=== PATIENT | male | born 1995 | race Caucasian/White ===

== ENCOUNTER 2021-12-26 08:35 | Emergency (ER) | payer MEDICARE, MEDICAID, SELFPAY ==
--- NOTE | 2021-12-26 08:40 | ED.EAR ---
HPI - Ear Problem General Chief complaint: Ear Stated complaint: Ear Pain,Cough Time Seen by Provider: 12/26/21 09:05 Source: patient and RN notes reviewed Mode of arrival: ambulatory Limitations: no limitations History of Present Illness HPI Narrative: 26-year-old male presents with concern for chronic cough, right ear pain. He reports drainage from the right ear for the last several days. He reports he has been coughing since June, he denies history of asthma. He reports he has tried [id number] cough medicine with occasional nighttime relief. He denies nasal congestion, sore throat. Reports occasional rhinorrhea and postnasal drainage. Denies shortness of breath. He denies history of seasonal allergies. MD Complaint: ear pain Related Data Home Medications Medication Instructions Recorded Confirmed bupropion HCl 200 mg tablet,12 hr 200 mg PO DAILY 12/26/21 12/26/21 sustained-release citalopram 40 mg tablet 40 mg PO DAILY 12/26/21 12/26/21 folic acid 1 mg tablet 1 mg PO DAILY 12/26/21 12/26/21 naproxen 500 mg tablet 500 mg PO DIRECTED 12/26/21 12/26/21 olanzapine 10 mg tablet 10 mg PO DAILY 12/26/21 12/26/21 olanzapine 2.5 mg tablet 2.5 mg PO DAILY 12/26/21 12/26/21 secukinumab 150 mg/mL subcutaneous 150 mg subcut DIRECTED 12/26/21 12/26/21 syringe (Cosentyx 300 mg/2 Syringes () Allergies Allergy/AdvReac Type Severity Reaction Status Date / Time No Known Allergies Allergy Unknown Verified 12/26/21 08:40 Review of Systems Review of Systems: CONSTITUTIONAL: Denies malaise, chills, sweats, or fever. EYES: Denies visual changes, redness, or discharge. ENT: Denies rhinorrhea, congestion, sinus pain, and sore throat. Reports right ear pain and drainage, reports postnasal drainage CARDIOVASCULAR: Denies chest pain, palpitations, or edema. RESPIRATORY: Reports cough. Denies dyspnea. GASTROINTESTINAL: Denies abdominal pain, nausea, vomiting, diarrhea SKIN: Denies rash or itching. MUSCULOSKELETAL: Denies myalgia. NEUROLOGIC: Denies headache. All systems reviewed & are unremarkable except as noted in HPI and below PMFSH Social History Social History Social History: never smoker Smoking status: Never smoker Alcohol intake: former Comments At time of signature, agree with nursing past medical, surgical, social and family history. There is no relevant family history pertinent to the presenting complaint Exam Narrative: GENERAL: Well-appearing, well-nourished, and in no acute distress. HEAD: Normocephalic EYES: PERRLA, conjunctivae clear ENT: Nares clear, clear discharge. Mucous membranes moist. Left TM pearly guzman with sharp light reflex; right tragal tenderness with EAC erythema, edema and purulent drainage Oropharynx not erythematous without lesions. Tonsils not enlarged and without exudate, no drooling, no hoarseness, no trismus, uvula midline. NECK: Supple. No lymphadenopathy CHEST: Clear to auscultation, breath sounds equal. No wheezing, rhonchi, rales, or stridor. No respiratory distress, speaks in full sentences. HEART: Regular rate and rhythm. No murmur heard. SKIN: Warm, dry, no rash. NEURO: Alert and oriented x3. PSYCH: Normal mood and affect Course Course Emergency Course: Patient is aware of diagnosis, understands and agrees to treatment plan. Anticipatory guidance given. Patient agrees to follow-up as directed and is aware of reasons to seek care at the emergency department. Portions of this record may have been created with voice recognition software Level of Care: Express Care Visit Vital Signs Vital signs: Reviewed. Medical Decision Making MDM Narrative Medical decision making narrative: Differential diagnosis considered: Trejo virus, strep pharyngitis, allergic rhinitis, upper respiratory tract infection, sinusitis, rhinosinusitis, nasopharyngitis. viral pharyngitis, otitis media, otitis externa, otitis effusion, cer
[2021-12-26 08:45] VITALS: BP 128/80; PULSE 87; RESP 16; TEMP 36.9; O2SAT 100
== END 2021-12-26 09:22 | disposition home or self-care (01) ==
PROVIDERS: Emergency Provider Nurse Practitioner
DX: H60.90 Unspecified otitis externa, unspecified ear (principal); R05.9 Cough, unspecified
CPT/HCPCS: 99213; G0463

== ENCOUNTER 2023-10-11 11:02 | Outpatient (CLI) | payer MEDICARE, MEDICAID, SELFPAY ==
--- NOTE | ~2023-10-11 | CT_ITS ---
Non-contrast Head CT History: Migraine Technique: Axial non-contrast imaging of the brain was performed. Dose reduction technique was used on this scan by utilizing automated exposure control and iterative reconstruction technique. The dose -length product (DLP) was 599.57 mGy-cm. Findings: There is no evidence of intracranial hemorrhage, mass lesion, or acute infarct. Brain par enchyma appears normal. The ventricles and subarachnoid spaces are normal in size. The calvarium ap pears normal. The visualized paranasal sinuses and mastoid air cells are clear. Impression: No significant abnormality seen. Reviewed, dictated and finalized at location . Impression: No significant abnormality seen.
== END 2023-10-11 11:03 ==
PROVIDERS: Visit Provider Student in an Organized Health Care Education/Training Program
DX: G43.909 Migraine, unspecified, not intractable, without status migrainosus (principal)
CPT/HCPCS: 70450

== ENCOUNTER 2024-07-08 07:57 | Outpatient (CLI) | payer MEDICARE, MEDICAID, SELFPAY ==
--- NOTE | 2024-07-14 13:49 | WPDHOMESLEEP ---
Sleep Study - Home Unattended Date of Study: 07/08/24 Ordering Provider: Riley Hutson APRN Interpreting Provider: Safia Degroot, DO Home Sleep Study Type: Watch PAT Height: 1.7 m Weight: 121.109 kg Body Mass Index: 41.8 Neck Circumference (inches): 18 [place]: 11 Reason for Sleep Study Daytime hypersomnia Sleep History The patient is a 28-year-old male that had a sleep study ordered by the pulmonary group for evaluation of sleep apnea. The patient frequently awakens from sleep short of breath. He denies awakening at night with heartburn, belching or cough. He frequently snores and it is frequently loud enough that others complain. He constantly has trouble sleeping when he has a cold. He frequently wakes up gasping for air throughout the night. He frequently has breathing problems at night observed by himself or others. He occasionally sweats excessively at night. He occasionally has heart palpitations or irregular heartbeats during the night. He constantly falls asleep during the day but never while driving. He denies having trouble at school or work due to sleepiness. He occasionally feels unable to move while waking up or falling asleep. He occasionally experiences vivid dreamlike scenes upon awakening or falling asleep. He denies feeling afraid of going to sleep. He frequently has nightmares. He denies remembering his dreams. He frequently has thoughts racing through his mind. He occasionally feels sad, depressed and anxious. He frequently has muscular tension. He frequently notices parts of his body jerk. He occasionally kicks during the night. He frequently has crawling and aching feelings in his legs and frequently has leg pain during the night. He denies awakening in the morning with jaw pain. He is constantly bothered by pain during the day and frequently awakened by pain during the night. He constantly wakes up feeling stiff in the morning. He constantly wakes up with sore or achy muscles. He constantly wakes up with pain in the neck, spine and other joints. He goes to bed between 2:24 a.m. on both weekdays and weekends. It takes him up to 10 minutes to fall asleep. He wakes up 1-2 times throughout the night for unknown reasons but will watch television is well he is able to fall back asleep which can take 2-4 hours. He wakes up at 8:20 a.m. on both weekdays and weekends. He typically gets 5-6 hours of sleep per night. He will stay in bed for a few minutes after waking up in the morning. He currently lives with his parents. He will consume caffeinated beverages within 2 hours of bedtime. He will engage in physical exercise before bedtime. He denies reading before falling asleep. He will watch television before falling asleep. He will take naps in afternoon or the evening but they are not refreshing. He consumes 2-3 cups of caffeinated beverage per day. He denies tobacco, alcohol and recreational drug use. [facility] Past Medical History Medical History Daytime sleepiness Obesity Social History Social History Social History: caffeine 2 cups of tea daily Smoking status: Never smoker Alcohol intake: former Alcohol use details: has not drank in over 2 years Substance use: never Substance use type: does not use Lack of Transportation: No Lack of Food: Never True Current Housing: I Have Housing Concerned About Future Housing: No Difficulty Paying Gas/Electric Bills: No Difficulty Paying for Meds: No Currently Unemployed: YES Education: High School Diploma/GED Difficulty w/ Childcare or Family Care: No Living arrangements: with family Medications Home Medications ?Medication ?Instructions ?Recorded ?Confirmed ?Type bupropion HCl 200 mg tablet,12 hr 200 mg PO DAILY 12/26/21 03/30/24 History sustained-release citalopram 40 mg tablet 40 mg PO DAILY 12/26/21 03/30/24 History folic acid 1 mg tablet 1 mg PO DAILY 12/26/21 03/30/24 History naproxen 500 mg tablet 500 mg PO DIRECTED 12/26/21 03/30/24 History olanzapine 10 mg tablet 10 mg PO DAILY 12/26/21 03/30/24 History secukinumab 150 mg/mL subcutaneous 150 mg subcut DIRECTED 12/26/21 03/30/24 History syringe (Cosentyx 300 mg/2 Syringes () sumatriptan succinate 100 mg tablet See Rx Instructions PO .COMPLEX 02/17/24 03/30/24 Rx #14 tabs topiramate 100 mg tablet 100 mg PO DAILY #60 tabs 02/17/24 03/30/24 Rx venlafaxine 37.5 mg 37.5 mg PO DAILY 03/30/24 03/30/24 History capsule,extended release 24 hr Sleep Procedure The sleep study was completed using [employer] a technically adequate device with seven channels: peripheral arterial tone, actigraphy, body position, snore, respiratory movement, pulse oximetry, sleep staging, and heart rate. Prior to using the device, the patient received verbal and written instructions for its application and was provided with the help desk phone number for additional telephonic instruction with 24-hour availability of qualified personnel to answer questions. The study was scored using CMS guidelines. Sleep Architecture The total recording time is 10 hrs, 30 min. The total sleep time is 3 hrs, 44 min. Sleep latency is 22 minutes. REM latency is minutes. The patient had 52 episodes of waking. Sleep architecture shows 10.2% deep sleep, 89.8% light sleep, and (as % Total Sleep Time) showed NREM (Light 89.8%; Deep 10.2%), and a 0.0% stage REM. The patient spent 50.3% of total sleep time in the supine position. Sleep efficiency was 35.56. Respiratory Analysis The overall AHI (pAHI 4%:) is 51.6. The central AHI is 20.3. The AHI was N/A in NREM and N/A in REM sleep. The AHI was 63.4 in Supine and 39.2 in Non-supine sleep. Percent of Phi Sanchez respirations is 0.0. Oximetry Data The oxygen desaturation index (EVAN 4%:) is 47.9. The mean saturation is 96%, and the lowest saturation is 85%. Time spent with saturation < 88% is 0.4 minutes. Snoring Profile Snoring average intensity is 43 dB. The patient snored above 45 decibels for 40.1 minutes, 17.9% of sleep time. Cardiac Profile The average pulse rate is 78 beats per minutes. The lowest pulse rate is 54 bpm. The highest pulse rate reported is 131 bpm. The longest Afibevent duration is 0:00:43. A suspected arrhythmia flagged in the sleep report does not necessarily imply an arrhythmia condition is present, but rather suggests that further investigation should be considered. A-Fib events < 60 seconds may be artifact. Premature beats occur <0.1 per minute. Assessment and Plan Assessment and Plan (1) KIEL (obstructive sleep apnea): Code(s): G47.33 - Obstructive sleep apnea (adult) (pediatric) Status: Acute Assessment and Plan: The patient had an overall AHI of 51.6 with desaturation down to 85%. The central apnea index was 20.3. This is consistent with severe sleep apnea. Due to the severity of the patient's sleep apnea as well as the elevated central apnea index, the patient is not a candidate for AutoPAP. AutoPAP can increase the severity and frequency of central apneas. I recommend that the patient have a CPAP Titration with the use of a hypnotic to ensure we obtain enough sleep data and find an optimal pressure setting. *The patient needs to have an echocardiogram to rule out cardiogenic causes for an elevated central apnea index.* The patient's sleep history is highly suggestive of Restless Leg Syndrome. I recommend that the patient have a serum ferritin drawn for evaluation of iron deficiency anemia. If the patient has a serum ferritin less than 75 ng/mL, I recommend starting a daily iron supplement and a Vitamin C supplement for better absorption. If the serum ferritin is greater than 75 ng/mL, I recommend starting a dopamine agonist and titrating the dose until symptoms resolve. There are nonpharmacological methods to treat limb movements including daily exercise, stretching calf muscles before bed, avoiding excessive amounts of caffeine and alcohol, vitamin B supplementation, magnesium lotion massaged into legs before bed, and use of a weighted blanket. Data The data obtained during this sleep study is adequate for interpretation. Certification This sleep study has been reviewed by a board certified sleep medicine physician.
[2024-07-14 17:03] VITALS: BMI 41.8
--- OUTSIDE RECORDS SUMMARY | 2024-07-15 18:37 | XMS_ITS | Encounter Summary ---
Author Organization [facility] Address [address] [place] [address] Care Team Providers Care Home Insurance Agent Name Role Phone Christa Velez HARVEY-ASSOCIATE PROGRAMMER Unavailable [phone] Oswaldo BOSCH MD, Francis G Primary Care Provider [phone] Morgan Randhawa MD Unavailable Pineda Randhawa MD Unavailable Will Naqvi MD Unavailable [phone] Pineda Randhawa MD Unavailable Estee Peck MD Unavailable [phone] Encounter Details Date Type Department Care Team (Latest Contact Info) Description 07/24/2023 1:55 PM MECHANICAL TECHNICIAN - 07/24/2023 11:59 PM [facility] Hospital Encounter [facility] OP DRAW STATION [address] [place] [phone] Discharge Disposition: Home or Self Care Social History Tobacco Use Types Packs/Day Years Used Date Smoking Tobacco: Never Smokeless Tobacco: Never Alcohol Use Standard Drinks/Week Comments No 0 (1 standard drink = 0.6 oz pur e alcohol) PHQ-2 Answer Date Recorded PHQ2 TOTAL SCORE 0 12/26/2022 Sex and Gender Information Value Date Recorded Sex Assigned at Not on file Gender Identity Not on file Sexual Orientation Not on file documented as of this encounter Medications at Time of Discharge Medication Sig Dispensed Refills Start Date End Date buPROPion SR 12hr (WELLBUTRIN SR) 200 MG tablet Take 1 (one) tablet by mouth 2 times daily 03/06/2021 calcipotriene (DOVONEX) 0.005 % creamIndications:Oth er psoriasis Apply to affected area 2 times daily 60 g 3 10/16/2021 citalopram (CELEXA) 40 MG tablet TAKE 1 TABLET BY MOUTH EVERY DAY IN THE MORNING 03/08/2021 clobetasol (TEMOVATE) 0.05 % ointmentIndications: Other psoriasis APPLY TOPICALLY TO AFFECTED AREA(S) OF KNEES AND ELBOWS TWICE DAILY 60 g 3 10/16/2021 folic acid (FOLVITE) 1 MG tabletIndications:Ot her psoriasis Take 1 daily except the day you take methotrexate 30 tablet 11 07/07/2021 ketoconazole (NIZORAL) 2 % shampooIndications:O ther psoriasis Apply to wet hair, leave on for 3 minutes, then rinse; three times weekly. 30 days supply 120 mL 11 04/17/2021 melatonin 3 MG tablet TAKE 1 TABLET BY MOUTH AT BEDTIME 90 tablet 11 04/23/2023 olanzapine (ZYPREXA) 10 MG tablet Take 1 (one) tablet by mouth once daily vitamin D3 (Cholecalciferol) 25 MCG (1000 UNITS) tablet Take 1 (one) tablet by mouth once daily 05/06/2022 amitriptyline (Elavil) 25 MG tablet Take 1 (one) tablet by mouth at bedtime 12/18/2023 Cosentyx Sensoready, 300 MG, 150 MG/ML SOAJ pen INJECT 300MG UNDER THE SKIN EVERY 28 DAYS 2 mL 3 05/10/2023 08/27/2023 naproxen (Naprosyn) 500 MG tablet Take 1 (one) tablet by mouth 2 times daily 120 tablet 1 11/02/2022 08/29/2023 documented as of this encounter Plan of Treatment Upcoming Encounters Date Type Department Care Team (Late st Contact Info) Description 10/21/2024 1:30 PM CDT Office Visit [facility] - Rheumatology [address] [place] [address], [place] [phone] Paulino Youngblood MD [address] [place] [address] [place] [phone] 11/30/2024 3:00 PM CDT [facility] E[facility] [address] [place] [address], [place] [phone] Froilan Monae MD [address] [place] [address] DEPT [place] [address] 02/15/2025 10:00 AM CDT Office Visit [facility] - Internal Med [address] [place] [phone] Richard Chacon III, MD [address] [place] [address] [address]L [facility] [place] [phone] documented as of this encounter Procedures Procedure Name Priority Date/Time Associated Diagnosis Comments QUANTIFERON-TB GOLD PLUS 4-TUBE Routine 07/24/2023 2:25 PM MECHANICAL TECHNICIAN Psoriatic arthritis (HCC) Psoriasis Screening-pulmonary TB HIV-1 HIV-2 ANTIBODY + HIV P24 AG PANEL Routine 07/24/2023 2:25 PM MECHANICAL TECHNICIAN Routine general medical examination at [facility] care facility HEMOGLOBIN A1C Routine 07/24/2023 2:25 PM MECHANICAL TECHNICIAN Class 2 obesity with body mass index (BMI) of 37.0 to 37.9 in adult, unspecified obesity type, unspecified whether serious comorbidity present CBC W AUTO DIFFERENTIAL Routine 07/24/2023 2:25 PM MECHANICAL TECHNICIAN Psoriatic arthritis (HCC) Psoriasis COMPREHENSIVE METABOLIC PANEL Routine 07/24/2023 2:25 PM MECHANICAL TECHNICIAN Psoriatic arthritis (HCC) Psoriasis LIPID PROFILE Routine 07/24/2023 2:25 PM MECHANICAL TECHNICIAN Class 2 obesity with body mass index (BMI) of 37.0 to 37.9 in adult, unspecified obesity type, unspecified whether serious comorbidity present documented in this encounter Results * QUANTIFERON-TB GOLD PLUS 4-TUBE (07/24/2023 2:25 PM MECHANICAL TECHNICIAN) [facility] QuantiFERON NIL 0.02 IU/mL 1:37 PM MECHANICAL TECHNICIAN [facility] ([facility]) Comment: Performed By: [facility] [address] [place] [id number] Management Services Technician: Woo Bee MD, PhD CLIA Number: [id number] QuantiFERON TB Gold Plus Negative Negative 07/27/2023 1:37 PM MECHANICAL TECHNICIAN [facility] ([facility]) Comment: Interpretive Data: Quantiferon TB Gold Plus Interferon gamma release is measured for specimens from each of the four collection tubes. A qualitative result (Negative, Positive, or Indeterminate) is based on interpretation of the four values, NIL, MITOGEN minus NIL (MITOGEN-NIL), TB1 minus NIL (TB1-NIL), and TB2 minus NIL (TB2-NIL). The NIL value represents nonspecific reactivity produced by the patient specimen. The MITOGEN-NIL value serves as the positive control for the patient specimen, demonstrating successful lymphocyte activity. The TB1-NIL tube specifically detects CD4+ lymphocyte reactivity, specifically stimulated by the TB1 antigens. The TB2-NIL tube detects both CD4+ and CD8+ lymphocyte reactivity, stimulated by TB2 antigens. An overall Negative result does not completely rule out TB infection. A false-positive result in the absence of other clinical evidence of TB infection is not uncommon. Refer to: Updated Guidelines for Using Interferon Gamma Release Assays to Detect Mycobacterium tuberculosis Infection --- [place], 2010 (http://www.cdc.gov/mmwr/preview/mmwrhtml/nd2541m3.htm), for more information concerning test performance in low-prevalence populations and use in occupational screening. QuantiFERON Plus TB1 Minus NIL 0.02 0.00 - 0.34 IU/mL 07/27/2023 1:37 PM MECHANICAL TECHNICIAN [facility] ([facility]) QuantiFERON Plus TB2 Minus NIL 0.00 0.00 - 0.34 IU/mL 07/27/2023 1:37 PM MECHANICAL TECHNICIAN [facility]) QuantiFERON Mitogen Minus NIL 8.47 IU/mL 07/27/2023 1:37 PM MECHANICAL TECHNICIAN [facility]) Blood BLOOD SPECIMEN / Unknown Lab Venipuncture / Unknown 07/24/2023 2:25 PM MECHANICAL TECHNICIAN 07/24/2023 3:23 PM MECHANICAL TECHNICIAN Will Naqvi MD LAB - CHEMISTRY ALEENA HERNANDEZ [facility] ([facility]) [address] [place] [address], [facility] * COMPREHENSIVE METABOLIC PANEL (07/24/2023 2:25 PM MECHANICAL TECHNICIAN) BUN 9 7 - 26 mg/dL 07/24/2023 3:[address] [facility] Creatinine 1.01 0.71 - 1.16 mg/dL 07/24/2023 3:[address] [facility] Sodium 138 136 - 145 mmol/L 07/24/2023 3:[address] [facility] Potassium 4.1 3.5 - 4.5 mmol/L 07/24/2023 3:[address] [facility] Chloride 107 98 - 107 mmol/L 07/24/2023 3:[address] [facility] CO2 23 22 - 29 mmol/L 07/24/2023 3:[address] [facility] Glucose 96 70 - 115 mg/dL 07/24/2023 3:[address] [facility] Calcium 9.3 8.4 - 10.2 mg/dL 07/24/2023 3:[address] [facility] Protein Total 7.1 6.0 - 8.3 g/dL 07/24/2023 3:[address] [facility] Albumin 3.9 3.4 - 5.0 g/dL 07/24/2023 3:[address] [facility] Bilirubin Total 0.3 0.2 - 1.2 mg/dL 07/24/2023 3:[address] [facility] Alkaline Phosphatase 109 40 - 150 U/L 07/24/2023 3:[address] [facility] ALT 49 5 - 55 U/L 07/24/2023 3:[address] [facility] AST 17 5 - 34 U/L 07/24/2023 3:[address] [facility] Anion Gap 8 6 - 16 07/24/2023 3:[address] [facility] BUN/Creatinine Ratio 9 7 - 23 07/24/2023 3:[address] [facility] Osmolality Calculated 285 275 - 295 mOsm/kg 07/24/2023 3:[address] [facility] Albumin/Globulin Ratio 1.2 1.1 - 2.3 07/24/2023 3:[address] [facility] eGFR by CKD-EPI >90 >=90 mL/min/1.7 3 m2 07/24/2023 3:[address] [facility] Blood BLOOD SPECIMEN / Unknown Lab Venipuncture / Unknown 07/24/2023 2:25 PM MECHANICAL TECHNICIAN 07/24/2023 2:57 PM MECHANICAL TECHNICIAN Will Naqvi MD LAB - CHEMISTRY [facility]DE [facility] Organization Address City/State/ZIP Co de Phone Number [facility] [address] [place] [address], [facility] [phone] * CBC WITH DIFFERENTIAL (07/24/2023 2:25 PM MECHANICAL TECHNICIAN) WBC 7.1 4.0 - 10.7 x10E9/L 07/24/2023 3:[address] [facility] RBC Count 5.15 4.30 - 5.80 x10E12/L 07/24/2023 3:[address] [facility] Hemoglobin 14.2 13.3 - 17.5 g/dL 07/24/2023 3:[address] [facility] Hematocrit 42.4 38.7 - 51.1 % 07/24/2023 3:[address] [facility] MCV 82.3 80.0 - 98.0 fL 07/24/2023 3:[address] [facility] MCH 27.6 26.7 - 33.6 pg 07/24/2023 3:[address] [facility] MCHC 33.5 31.7 - 36.3 g/dL 07/24/2023 3:[address] [facility] RDW-CV 13.0 11.3 - 14.8 % 07/24/2023 3:[address] [facility] Platelet Count 232 150 - 420 x10E9/L 07/24/2023 3:[address] [facility] MPV 10.2 7.8 - 11.4 fL 07/24/2023 3:[address] [facility] Neutrophil % 66.0 41.0 - 74.0 % 07/24/2023 3:[address] [facility] Lymphocyte % 25.1 17.0 - 47.0 % 07/24/2023 3:[address] [facility] Monocyte % 5.9 3.0 - 11.0 % 07/24/2023 3:[address] [facility] Eosinophil % 1.7 0.0 - 7.0 % 07/24/2023 3:[address] [facility] Basophil % 0.6 0.0 - 1.6 % 07/24/2023 3:[address] [facility] Immature Granulocytes % 0.7 0.0 - 1.0 % 07/24/2023 3:[address] [facility] Neutrophil Absolute 4.67 1.60 - 7.50 x10E9/L 07/24/2023 3:[address] [facility] Lymphocyte Absolute 1.78 1.00 - 4.40 x10E9/L 07/24/2023 3:[address] [facility] Monocyte Absolute 0.42 0.15 - 1.00 x10E9/L 07/24/2023 3:[address] [facility] Eosinophil Absolute 0.12 0.00 - 0.60 x10E9/L 07/24/2023 3:[address] [facility] Basophil Absolute 0.04 0.00 - 0.13 x10E9/L 07/24/2023 3:[address] [facility] Blood BLOOD SPECIMEN / Unknown Lab Venipuncture / Unknown 07/24/2023 2:25 PM MECHANICAL TECHNICIAN 07/24/2023 2:57 PM [facility] Will Naqvi MD LAB - HEMATOLOGY ORD ERABLES [facility] [address] [place] [address], [facility] [phone] * HIV-1 HIV-2 ANTIBODY + HIV P24 AG PANEL (07/24/2023 2:25 PM MECHANICAL TECHNICIAN) HIV Antigen/Antibod y 1 & 2 Non-reacti ve Non-react artur 07/24/2023 3:[address] [facility] Comment:No Laboratory eviden ce of HIV infection. Blood BLOOD SPECIMEN / Unknown Lab Venipuncture / Unknown 07/24/2023 2:25 PM MECHANICAL TECHNICIAN 07/24/2023 2:56 PM MECHANICAL TECHNICIAN Richard Chacon III, MD LAB - CHEMISTRY O RDERABLES [facility] [address] [place] [phone], [facility] [phone] * (ABNORMAL) LIPID PROFILE (07/24/2023 2:25 PM MECHANICAL TECHNICIAN) Pathologist [facility] Cholesterol Total 151 <200 mg/dL 07/24/2023 3:[address] [facility] HDL 27(L) >40 mg/dL 07/24/2023 3:[address] [facility] Comment: ATP III Classification of HDL Cholesterol: ? <40 mg/dL: ??Considered a major risk factor. ? >60 mg/dL: ??Considered a negative risk factor. ? LDL Calculated 99 <100 mg/dL 07/24/2023 3:[address] [facility] Comment: ATP III Classification of LDL Cholesterol: ?<100 mg/dL: ??Optimal ? 100 - 129 mg/dL: ??Near Optimal/Above Optimal ? 130 - 159 mg/dL: ??Borderline High ? 160 - 189 mg/dL: ??High ?>190 mg/dL: ??Very High ? Triglycerides 124 <150 mg/dL 07/24/2023 3:[address] [facility] Comment: ATP III Classification of Triglycerides: ?<150 mg/dL: ??Normal ? 150 - 199 mg/dL: ??Borderline High ? 200 - 400 mg/dL: ??High ?>500 mg/dL: ??Very High Blood BLOOD SPECIMEN / Unknown Lab Venipuncture / Unknown 07/24/2023 2:25 PM MECHANICAL TECHNICIAN 07/24/2023 2:57 PM MECHANICAL TECHNICIAN Richard Chacon III, MD LAB - CHEMISTRY O JOE Performing Organization Address [facility] Co de Phone Number [facility] [address] [place] [address], [facility] [phone] * (ABNORMAL) HEMOGLOBIN A1C (07/24/2023 2:25 PM MECHANICAL TECHNICIAN) Hemoglobin A1c 5.7(H) <=5.6 % 07/25/2023 11:[address] [facility] Estimated Average Glucose 117 mg/dL 07/25/2023 11:[address] [facility] Comment: HbA1c Interpretation: Normal : < 5.7% Pre-diabetes: 5.7-6.4% Diabetes: Equal to or greater than 6.5% Test results diagnostic of diabetes should be repeated for confirmation. Treatment target values recommended by ADA and other clinical organizations should be used to evaluate metabolic control in patients. Reference: [place] [employer], Standards of Care in Diabetes -2020 In patients 70 years and older consider HbA1c target range of 7.0-7.5% (Reference: Alberto Everett et al. JAMDA. 2012) The Sebia assay for the measurement of HbA1c is a National Glycohemoglobin Standardization Program (NGSP) certified method. Blood BLOOD SPECIMEN / Unknown Lab Venipuncture / Unknown 07/24/2023 2:25 PM MECHANICAL TECHNICIAN 07/24/2023 2:58 PM MECHANICAL TECHNICIAN Richard Chacon III, MD LAB - CHEMISTRY O JOE Performing Organization Address [facility]/ZIP Co de Phone Number [facility] [address] [place] [phone], [facility] [phone] documented in this encounter Visit Diagnoses Diagnosis Class 2 obesity with body mass index (BMI) of 37.0 to 37.9 in adult, unspecified obesity type, unspecified whether serious comorbidity present Routine general medical examination at health care facility Routine general medical examination at a health care facility Psoriatic arthritis (HCC) Psoriatic arthropathy Psoriasis Other psoriasis Screening-pulmonary TB Screening examination for pulmonary tuberculosis documented in this encounter Care Teams Home Insurance Agent Relationship Specialty Start Date End Date Richard Chacon III, MD [address] [place] [phone] PCP - General Internal Medicine 01/29/22 Christa Velez APRN-ASSOCIATE PROGRAMMER [address] [phone] Psychiatrist Nurse Practitioner 08/07/21 Morgan Randhawa MD [address] [place] [phone] Resident - PCP Internal Medicine 01/29/22 Pineda Randhawa MD [address] [place] [phone] Resident Rheumatology 12/24/22 Will Naqvi MD [address] [place] [phone] Datawarehouse Developer Rheumatology 12/24/22 Pineda Randhawa MD [address] [place] [address] Resident Rheumatology 02/04/23 Estee Peck MD [address] [place] [address] Dermatology 02/04/23 documented as of this encounter
--- OUTSIDE RECORDS SUMMARY | 2024-07-15 18:37 | XMS_ITS | Encounter Summary ---
Author Organization [facility] Address [address] [place] [address] Care Team Providers Care Christian Science Reader Name Role Phone AgustinChrista HARVEY-SCRAPER OPERATOR Unavailable Oswaldo BOSCH MD, Richard Sanchez Primary Care Provider [phone] Morgan Randhawa MD Unavailable Pineda Randhawa MD Unavailable Will Naqvi MD Unavailable Pineda Randhawa MD Unavailable Estee Peck MD Unavailable [phone] Encounter Details Date Type Department Care Team (Late st Contact Info) Description 07/24/2023 Orders Only [facility] - Rheumatology [address] [facility], [place] [phone] Pineda Randhawa MD [address] [place] [address] Psoriatic arthritis (HCC) ; Psoriasis; Screening-pulmonary TB Social History Tobacco Use Types Packs/Day Years [...] on file documented as of this encounter Plan of Treatment Upcoming Encounters Date Type Department Care Team (Late st Contact Info) Description 10/21/2024 1:30 PM CDT Office Visit [facility] - Rheumatology [address] [place] [phone] Paulino Youngblood MD [address] [place] [address] [place] [phone] 11/30/2024 3:00 PM CDT Office Visit [facility] - ENT [address] [place] [phone] Froilan Monae MD [address] [place] [address] [place] [address] 02/15/2025 10:00 AM CDT Office Visit [facility] - Internal Med [address] [place] [phone] Richard Chacon III, MD [address] [place] [address] 2L [place] [phone] documented as of this encounter Results * QUANTIFERON-TB GOLD PLUS 4-TUBE (07/24/2023 2:25 PM NURSING OFFICER) QuantiFERON NIL 0.02 IU/mL 1:37 PM NURSING OFFICER [employer] ([facility]) Comment: Performed By: [employer] [address] [place] [address] Clinical Advisor: Woo Bee MD, PhD CLIA Number: [id number] QuantiFERON TB Gold Plus Negative Negative 07/27/2023 1:37 PM NURSING OFFICER [employer] ([facility]) Comment: Interpretive Data: Quantiferon TB Gold [...] Mycobacterium tuberculosis Infection --- [place], 2010 (http://www.cdc.gov/mmwr/preview/mmwrhtml/tk4237e1.htm), for more information concerning test performance in low-prevalence populations and use in occupational screening. QuantiFERON Plus TB1 Minus NIL 0.02 0.00 - 0.34 IU/mL 07/27/2023 1:37 PM NURSING OFFICER [facility]) QuantiFERON Plus TB2 Minus NIL 0.00 0.00 - 0.34 IU/mL 07/27/2023 1:37 PM NURSING OFFICER [facility]) QuantiFERON Mitogen Minus NIL 8.47 IU/mL 07/27/2023 1:37 PM NURSING OFFICER [facility]) Blood BLOOD SPECIMEN / Unknown Lab Venipuncture / Unknown 07/24/2023 2:25 PM NURSING OFFICER 07/24/2023 3:23 PM NURSING OFFICER Will Naqvi MD LAB - CHEMISTRY ALEENA HERNANDEZ [facility] Organization Address City/State/ZIP Co de Phone Number [facility] [employer] [facility]) [address] [phone] * COMPREHENSIVE METABOLIC PANEL (07/24/2023 2:25 PM NURSING OFFICER) BUN 9 7 - 26 mg/dL 07/24/2023 3:25 PM NURSING OFFICER [facility] Creatinine 1.01 0.71 - 1.16 mg/dL 07/24/2023 3:25 PM [facility] Sodium 138 136 - 145 mmol/L 07/24/2023 3:25 PM [facility] Potassium 4.1 3.5 - 4.5 mmol/L 07/24/2023 3:25 PM [facility] Chloride 107 98 - 107 mmol/L 07/24/2023 3:25 PM [facility] CO2 23 22 - 29 mmol/L 07/24/2023 3:25 PM [facility] Glucose 96 70 - 115 mg/dL 07/24/2023 3:25 PM [facility] Calcium 9.3 8.4 - 10.2 mg/dL 07/24/2023 3:25 PM [facility] Protein Total 7.1 6.0 - 8.3 g/dL 07/24/2023 3:25 PM [facility] Albumin 3.9 3.4 - 5.0 g/dL 07/24/2023 3:25 PM [facility] Bilirubin Total 0.3 0.2 - 1.2 mg/dL 07/24/2023 3:25 PM [facility] Alkaline Phosphatase 109 40 - 150 U/L 07/24/2023 3:25 PM [facility] ALT 49 5 - 55 U/L 07/24/2023 3:25 PM [facility] AST 17 5 - 34 U/L 07/24/2023 3:25 PM [facility] Anion Gap 8 6 - 16 07/24/2023 3:25 PM [facility] BUN/Creatinine Ratio 9 7 - 23 07/24/2023 3:25 PM [facility] Osmolality Calculated 285 275 - 295 mOsm/kg 07/24/2023 3:25 PM [facility] Albumin/Globulin Ratio 1.2 1.1 - 2.3 07/24/2023 3:25 PM [facility] eGFR by CKD-EPI >90 >=90 mL/min/1.7 3 m2 07/24/2023 3:25 PM [facility] Blood BLOOD SPECIMEN / Unknown Lab Venipuncture / Unknown 07/24/2023 2:25 PM NURSING OFFICER 07/24/2023 2:57 PM NURSING OFFICER Will Naqvi MD LAB - CHEMISTRY ALEENA HERNANDEZ [facility] Organization Address City/State/ZIP Co de Phone Number [facility] [address] [place] [address], [facility] [phone] * CBC WITH DIFFERENTIAL (07/24/2023 2:25 PM NURSING OFFICER) WBC 7.1 4.0 - 10.7 x10E9/L 07/24/2023 3:10 PM [facility] RBC Count 5.15 4.30 - 5.80 x10E12/L 07/24/2023 3:10 PM [facility] Hemoglobin 14.2 13.3 - 17.5 g/dL 07/24/2023 3:10 PM [facility] Hematocrit 42.4 38.7 - 51.1 % 07/24/2023 3:10 PM [facility] MCV 82.3 80.0 - 98.0 fL 07/24/2023 3:10 PM [facility] MCH 27.6 26.7 - 33.6 pg 07/24/2023 3:10 PM [facility] MCHC 33.5 31.7 - 36.3 g/dL 07/24/2023 3:10 PM [facility] RDW-CV 13.0 11.3 - 14.8 % 07/24/2023 3:10 PM [facility] Platelet Count 232 150 - 420 x10E9/L 07/24/2023 3:10 PM [facility] MPV 10.2 7.8 - 11.4 fL 07/24/2023 3:10 PM [facility] Neutrophil % 66.0 41.0 - 74.0 % 07/24/2023 3:10 PM [facility] Lymphocyte % 25.1 17.0 - 47.0 % 07/24/2023 3:10 PM [facility] Monocyte % 5.9 3.0 - 11.0 % 07/24/2023 3:10 PM [facility] Eosinophil % 1.7 0.0 - 7.0 % 07/24/2023 3:10 PM [facility] Basophil % 0.6 0.0 - 1.6 % 07/24/2023 3:10 PM [facility] Immature Granulocytes % 0.7 0.0 - 1.0 % 07/24/2023 3:10 PM [facility] Neutrophil Absolute 4.67 1.60 - 7.50 x10E9/L 07/24/2023 3:10 PM [facility] Lymphocyte Absolute 1.78 1.00 - 4.40 x10E9/L 07/24/2023 3:10 PM [facility] Monocyte Absolute 0.42 0.15 - 1.00 x10E9/L 07/24/2023 3:10 PM [facility] Eosinophil Absolute 0.12 0.00 - 0.60 x10E9/L 07/24/2023 3:10 PM [facility] Basophil Absolute 0.04 0.00 - 0.13 x10E9/L 07/24/2023 3:10 PM [facility] Blood BLOOD SPECIMEN / Unknown Lab Venipuncture / Unknown 07/24/2023 2:25 PM NURSING OFFICER 07/24/2023 2:57 PM NURSING OFFICER Will Naqvi MD LAB - HEMATOLOGY ORD ERABLES [facility] [address] [place] [address], [facility] [phone] documented in this encounter Visit Diagnoses Diagnosis Psoriatic arthritis (HCC)- Primary Psoriatic arthropathy Psoriasis Other psoriasis Screening-pulmonary TB Screening examination for pulmonary tuberculosis documented in this encounter Care Teams Christian Science Reader Relationship Specialty Start Date End Date Richard Chacon III, MD [address] [place] [address] 2[address] [place] [phone] PCP - General Internal Medicine 01/29/22 Christa Velez APRN-SCRAPER OPERATOR [address] [place] [phone] Psychiatrist Nurse Practitioner 08/07/21 Morgan Randhawa MD [address] [facility] [place] [address] Resident - PCP Internal Medicine 01/29/22 Pineda Randhawa MD [address] [facility] [place] [address] Resident Rheumatology 12/24/22 Will Naqvi MD [address] [facility] 2L [place] [phone] Batch Freezer Rheumatology 12/24/22 Pineda Randhawa MD [address] [place] [phone] Resident Rheumatology 02/04/23 Estee Peck MD [address] [facility] 3L [place] [address] Dermatology 02/04/23 documented as of this encounter
--- OUTSIDE RECORDS SUMMARY | 2024-07-15 18:37 | XMS_ITS | Encounter Summary ---
Author Organization [facility] Address [address] [facility] [place] [address] Care Team Providers Care Insights Manager Name Role Phone AyakacharlotteChrista HARVEY-AEROSPACE PHYSIOLOGICAL TECHNICIAN Unavailable [phone] Oswaldo BOSCH MD, Francis G Primary Care Provider [phone] Morgan Randhawa MD Unavailable Pineda Randhawa MD Unavailable Will Naqvi MD Unavailable Pineda Randhawa MD Unavailable Estee Peck MD Unavailable Reason for Visit * Reason Onset Date Comments Appointment 05/14/2023 Encounter Details Date Type Department Care Team (Late st Contact Info) Description 05/14/2023 Telephone [facility] - Centralized Scheduling [facility] [place] [address] Froilan Monae MD [address] [place] [address] Appointment Social History Tobacco Use Types Packs/Day Years [...] on file documented as of this encounter Miscellaneous Notes * Telephone Encounter - Roxana Pineda - 05/15/2023 6:41 AM CST Pt read mychart, mail bump letter. GER ANDROID * Telephone Encounter - Roxana Pineda - 05/14/2023 1:26 PM CST Lm to vm + sm to mychart. GER ANDROID documented in this encounter Plan of Treatment Upcoming Encounters Date Type Department Care Team (Late st Contact Info) Description 10/21/2024 1:30 PM CDT Office Visit [facility] - Rheumatology [address] [place] [phone] Paulino Youngblood MD [address] [place] [address] [place] [phone] 11/30/2024 3:00 PM CDT Office Visit [facility] - ENT [address] [place] [phone] Froilan Monae MD [address] [place] [address] 2L [place] [address] 02/15/2025 10:00 AM CDT Office Visit [facility] - Internal Med [address] [place] [phone] Richard Chacon III, MD [address] [place] [address] 2L [place] [address] documented as of this encounter Visit Diagnoses Not on filedocumented in this encounter Care Teams Insights Manager Relationship Specialty Start Date End Date Richard Chacon III, MD [address] 2[address] [place] [phone] PCP - General Internal Medicine 01/29/22 Christa Velez APRN-AEROSPACE PHYSIOLOGICAL TECHNICIAN [address] [place], [place] [phone] Psychiatrist Nurse Practitioner 08/07/21 Morgan Randhawa MD [address] [facility] [place] [place] [phone] Resident - PCP Internal Medicine 01/29/22 Pineda Randhawa MD [address] [facility] [place] [phone] Resident Rheumatology 12/24/22 Will Naqvi MD [address] [facility] [address] [place] [phone] Valet Service Attendant Rheumatology 12/24/22 Pineda Randhawa MD [address] [place] [phone] Resident Rheumatology 02/04/23 Estee Peck MD [address]L [place] [address] Dermatology 02/04/23 documented as of this encounter
--- OUTSIDE RECORDS SUMMARY | 2024-07-15 18:37 | XMS_ITS | Encounter Summary ---
Author Organization [facility] Address [address] [facility] [place] [address] Care Team Providers Care Machine Marker Name Role Phone Christa Velez APRN-ETCHER AIRCRAFT Unavailable Oswaldo BOSCH MD, Francis G Primary Care Provider [phone] Morgan Randhawa MD Unavailable Pineda Randhawa MD Unavailable Will Naqvi MD Unavailable [phone] Pineda Randhawa MD Unavailable Estee Peck MD Unavailable [phone] Oswaldo BOSCH MD, Francis G Unavailable Reason for Visit * Reason Onset Date Comments MEDICATION REFILL 01/01/2024 Encounter Details Date Type Department Care Team (Late st Contact Info) Description 01/01/2024 Refill [facility] - Rheumatology [address] [place] [address], [place] [address] Paulino Youngblood MD [address] [place] [address] [place] [address] MEDICATION REFILL Social History Tobacco Use Types Packs/Day Years [...] encounter Miscellaneous Notes * Telephone Encounter - Ainsley Jane - 01/01/2024 9:05 AM CDT Refill Request Manoj Horner UVALDO: 12/18/2023 NOV scheduled: 07/01/2024 LRF: 08/29/2023 Qty Disp: 120 # of refills: 1 Allergies: Allergies Allergen Reactions Food Headache Spaghetti sauce and mozzarella cheese Pended Medication Order: Requested Prescriptions Pending Prescriptions Disp Refills naproxen (Naprosyn) 500 MG tablet 120 tablet 1 Sig: Take 1 (one) tablet by mouth 2 times daily documented in this encounter Plan of Treatment Upcoming Encounters Date Type Department Care Team (Late st Contact Info) Description 10/21/2024 1:30 PM CDT Office Visit [facility] - Rheumatology [address] [place] [phone] Paulino Youngblood MD [address] [place] [address] [place] [address] 11/30/2024 3:00 PM CDT Office Visit [facility] - ENT [address] [place] [phone] Froilan Monae MD [address] [place] [address] [place] [address] 02/15/2025 10:00 AM CDT [facility] [address] [place] [phone] Richard Chacon III, MD [address] [place] [address] [place] [phone] documented as of this encounter Visit Diagnoses Not on filedocumented in this encounter Care Teams Machine Marker Relationship Specialty Start Date End Date Richard Chacon III, MD [address] 2[address] [place] [phone] PCP - General Internal Medicine 01/29/22 Richard Chacon III, MD [address] 2L [place] [phone] PCP - [facility] NIYAH SALCIDO P4P 11/23/23 Christa Velez APRN-ETCHER AIRCRAFT [address] [phone] Psychiatrist Nurse Practitioner 08/07/21 Morgan Randhawa MD [address] [facility] [place] [address] Resident - PCP Internal Medicine 01/29/22 Pineda Randhawa MD [address] [facility] [phone] Resident Rheumatology 12/24/22 Will Naqvi MD [address] [place] [phone] Show Card Writer Rheumatology 12/24/22 Pineda Randhawa MD [address] [facility] [address] [facility] [address] [place] [address] Resident Rheumatology 02/04/23 Estee Peck MD [address] [place] [address] Dermatology 02/04/23 documented as of this encounter
--- OUTSIDE RECORDS SUMMARY | 2024-07-15 18:37 | XMS_ITS | Encounter Summary ---
Author Organization [facility] Address [address] [facility] [place] [address] Care Team Providers Care Armorer Technician Name Role Phone Christa Velez HARVEY-SAP SECURITY ARCHITECT Unavailable [phone] Oswaldo BOSCH MD, Richard Sanchez Primary Care Provider [phone] Morgan Randhawa MD Unavailable Pineda Randhawa MD Unavailable Will Naqvi MD Unavailable Pineda Randhawa MD Unavailable Estee Peck MD Unavailable [phone] Reason for Visit * Reason Comments Refill Request Encounter Details Date Type Department Care Team (Late st Contact Info) Description 08/28/2023 Refill [facility] - [facility]ology [facility], [place] [phone] Pineda Randhawa MD [address] [facility] [address] [place] [phone] Refill Request Social History Tobacco Use Types Packs/Day Years [...] encounter Miscellaneous Notes * Telephone Encounter - Miguel Ángel Harris - 08/28/2023 4:07 PM CST Refill Request Manoj Horner UVALDO:07/24/2023 NOV scheduled: 07/03/2023 canceled LRF: 11/02/2022 Qty Disp: 120 # of refills: 1 Allergies: Allergies Allergen Reactions ??? Food Headache Spaghetti sauce and mozzarella cheese Pended Medication Order: Requested Prescriptions Pending Prescriptions Disp Refills ??? naproxen (Naprosyn) 500 MG tablet [Pharmacy Med Name: NAPROXEN 500MG TABLETS] 120 tablet 1 Sig: TAKE 1 TABLET BY MOUTH TWICE DAILY MOTIVE PARTS MANAGER documented in this encounter Plan of Treatment Upcoming Encounters Date Type Department Care Team (Late st Contact Info) Description 10/21/2024 1:30 PM CDT [facility] Visit [facility] Rhe[facility]ology [address] [place] [phone] Paulino Youngblood MD [address] [place] [address] [place] [phone] 11/30/2024 3:00 PM CDT Office Visit [facility] - ENT [address] [place] [phone] Froilan Monae MD [address] [place] [address] DEPT OF [place]OLARY[place] [address] 02/15/2025 10:00 AM CDT Office Visit [facility] - Internal Med [address] [place] [phone] Richard Chacon III, MD [address] [place] [address] [place] [phone] documented as of this encounter Visit Diagnoses Not on filedocumented in this encounter Care Teams Armorer Technician Relationship Specialty Start Date End Date Richard Chacon III, MD [address] 2L [place] [phone] PCP - General Internal Medicine 01/29/22 Christa Velez APRN-SAP SECURITY ARCHITECT [address] [place] [phone] Psychiatrist Nurse Practitioner 08/07/21 Morgan Randhawa MD [address] [place] [phone] Resident - PCP Internal Medicine 01/29/22 Pineda Randhawa MD [address] [facility] [place] [phone] Resident Rheumatology 12/24/22 Will Naqvi MD [address] DIV [place] [address] Gas Engine Operator Generators Rheumatology 12/24/22 Pineda Randhawa MD [address] [facility] [address] [place] [phone] Resident Rheumatology 02/04/23 Estee Peck MD [address] DE[place] [address] Dermatology 02/04/23 documented as of this encounter
--- OUTSIDE RECORDS SUMMARY | 2024-07-15 18:37 | XMS_ITS | Encounter Summary ---
Author Organization [facility] Address [address] [place] [address] Care Team Providers Care Linux Unix Administrator Name Role Phone AgustinChrista HARVEY-INFUSION NURSE Unavailable [phone] Oswaldo BOSCH MD, Francis G Primary Care Provider [phone] Morgan Randhawa MD Unavailable Pineda Randhawa MD Unavailable Will Naqvi MD Unavailable Pineda Randhawa MD Unavailable Estee Peck MD Unavailable Encounter Details Date Type Department Care Team (Late st Contact Info) Description 03/21/2023 2:30 PM CDT Testing Visit [facility] ENT [address] [place] [phone] Ismael Castro, PhD [address] [place] [address] [place] [address] Conductive hearing loss, bilateral Social History Tobacco Use Types Packs/Day Years [...] Office Visit [facility] - Rheumatology [address] [place] [phone] Paulino Youngblood MD [address] [place] [address] [place] [phone] 11/30/2024 3:00 PM CDT Office Visit [facility] - ENT [address] [place] [phone] Froilan Monae MD [address] [place] [address] DEPT [place] [address] 02/15/2025 10:00 AM CDT Office Visit [facility] - Internal Med [address] [place] [phone] Richard Chacon III, MD [address] [place] [address] 2L [place] [phone] documented as of this encounter Procedures Procedure Name Priority Date/Time Associated Diagnosis Comments AUDIOLOGY/TYMPANOME TRY ORDER Routine 03/21/2023 2:22 PM CDT documented in this encounter Results * AUDIOLOGY/TYMPANOMETRY ORDER (03/21/2023 2:22 PM CDT) Narrative Ismael Castro, PhD - 03/21/2023 2:41 PM CDT HISTORY: Manoj Horner is a 27 year old male was seen for an assessment of their hearing. ??The patient reports difficulty hearing. ??There is not a report of dizziness. ?? There is not a report of tinnitus. ??There is not a report of otalgia. There is not a report of noise exposure. There is a history of hearing loss in the family. There is not a history of previous ear surgery. 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 ??Speech Preschool Education Director Thresholds is in good agreement with pure tone average(see speech audiometry for details). Speech understanding was excellent in the right ear and excellent in the left ear. Immittance measures revealed a B with large ECV tympanogram in the right ear, indicating abnormal middle ear function. Results for the left ear revealed a B with large ECV tympanogram, indicating abnormal middle ear function in that ear. Findings were reviewed and discussed with Manoj Horner following the hearing evaluation. All questions were answered. PLAN: 1. The risks and benefits of my recommendations, as well as other treatment options were discussed today. 2. I recommend that the patient follow up with their facility, ENT or PCP PRN. Ismael Castro, Ph.D., [facility]-A Brattice Builder Director, Division of Audiology Department of Otolaryngology- Head & Neck Surgery [employer] [facility] Ismael Castro PhD AUDIOLOGY SERVICES O RDERABLES documented in this encounter Visit Diagnoses Diagnosis Conductive hearing loss, bilateral- Primary documented in this encounter Care Teams Linux Unix Administrator Relationship Specialty Start Date End Date Richard Chacon III, MD [address] [address] PCP - General Internal Medicine 01/29/22 Christa Velez APRN-INFUSION NURSE [address] [phone] Psychiatrist Nurse Practitioner 08/07/21 Morgan Randhawa MD [address] [facility] [place] [address] Resident - PCP Internal Medicine 01/29/22 Pineda Randhawa MD [address] [facility] [place] [address] Resident Rheumatology 12/24/22 Will Naqvi MD [address] [facility] 2L [place] [phone] Dental Office Receptionist Rheumatology 12/24/22 Pineda Randhawa MD [address] [place] [address] Resident Rheumatology 02/04/23 Estee Peck MD [address] [facility] 3L DEPT [place] [address] Dermatology 02/04/23 documented as of this encounter
--- OUTSIDE RECORDS SUMMARY | 2024-07-15 18:37 | XMS_ITS | Encounter Summary ---
Author Organization [facility] Address [address] [place] [address] Care Team Providers Care Hemmer Chainstitch Name Role Phone Christa Velez HARVEY-ACCOUNT ASSOCIATE Unavailable [phone] Oswaldo BOSCH MD, Francis G Primary Care Provider [phone] Morgan Randhawa MD Unavailable Pineda Randhawa MD Unavailable Will Naqvi MD Unavailable [phone] Pineda Randhawa MD Unavailable Estee Peck MD Unavailable Encounter Details Date Type Department Care Team (Latest Contact Info) Description 10/17/2023 1:38 PM CDT - 10/17/2023 11:59 PM CDT Hospital Encounter [facility] DIAGNOSTIC RAD OP [address] [place] [address] Will Naqvi MD [address] [facility] 2L [place] [address] Discharge Disposition: Home or Self Care Social [...] times daily 03/06/2021 calcipotriene (DOVONEX) 0.005 % creamIndications:Ot her psoriasis Apply to affected area 2 times daily 60 g 3 10/16/2021 citalopram (CELEXA) 40 MG tablet TAKE 1 TABLET BY MOUTH EVERY DAY IN THE MORNING 03/08/2021 clobetasol (TEMOVATE) 0.05 % ointmentIndications :Other psoriasis APPLY TOPICALLY TO AFFECTED AREA(S) OF KNEES AND ELBOWS TWICE DAILY 60 g 3 10/16/2021 folic acid (FOLVITE) 1 MG tabletIndications:O ther psoriasis Take 1 daily except the day you take methotrexate 30 tablet 11 07/07/2021 ketoconazole (NIZORAL) 2 % shampooIndications: Other psoriasis Apply to wet hair, leave on [...] Cosentyx Sensoready, 300 MG, 150 MG/ML SOAJ penIndications:Psor iatic arthritis (HCC) INJECT 300MG UNDER THE SKIN EVERY 28 DAYS 2 mL 3 08/29/2023 12/18/2023 naproxen (Naprosyn) 500 MG tablet TAKE 1 TABLET BY MOUTH TWICE DAILY 120 tablet 1 08/29/2023 01/01/2024 secukinumab (Cosentyx Sensoready, 300 MG,) 150 MG/ML SOAJ penIndications:Psor iatic arthritis (HCC) Inject 300 (three hundred) mg subcutaneously every 28 days 2 mL 3 08/29/2023 04/01/2024 topiramate (Topamax) 25 MG tablet Take 1 (one) tablet by mouth 2 times daily 10/04/2023 06/01/2024 documented as of this encounter Plan of Treatment Upcoming Encounters Date Type Department Care Team (Late st Contact Info) Description 10/21/2024 1:30 PM CDT Office Visit [facility] - Rheumatology [address] [place] [phone] Paulino Youngblood MD [address] [place] [address] DIV [place] [phone] 11/30/2024 3:00 PM CDT Office Visit [facility] - ENT [address] [place] [phone] Froilan Monae MD [address] [place] [address] 2L DEPT [place] [address] 02/15/2025 10:00 AM CDT Office Visit [facility] - Internal Med [address] [place] [phone] Richard Chacon III, MD [address] [place] [address] 2L [place] [address] documented as of this encounter Procedures Procedure Name Priority Date/Time Associated Diagnosis Comments XR FOOT RIGHT 3VW OR MORE Routine 10/17/2023 1:57 PM CDT Psoriatic arthritis (HCC) 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HCC) Psoriasis XR FOOT LEFT 3VW OR MORE Routine 10/17/2023 1:57 PM CDT Psoriatic arthritis (HCC) 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HCC) Psoriasis XR HAND RIGHT 3VW OR MORE Routine 10/17/2023 1:57 PM CDT Psoriatic arthritis (HCC) 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HCC) Psoriasis XR HAND LEFT 3VW OR MORE Routine 10/17/2023 1:57 PM CDT Psoriatic arthritis (HCC) 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HCC) Psoriasis XR WRIST RIGHT 2VW Routine 10/17/2023 1: 57 PM CDT Psoriatic arthritis (HCC) 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HCC) Psoriasis XR WRIST LEFT 2VW Routine 10/17/2023 1:5 7 PM CDT Psoriatic arthritis (HCC) 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HCC) Psoriasis XR SI JOINTS 3VW OR MORE Routine 10/17/2023 1:57 PM CDT Psoriatic arthritis (HCC) 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HCC) Psoriasis documented in this encounter Results * XR SI JOINTS 3VW OR MORE (10/17/2023 1:57 PM CDT) Anatomical Region Laterality Modality Pelvis, Lower Extremity Radiogra [facility] 10/17/2023 2:07 PM CDT Impressions 10/17/2023 9:28 PM CDT IMPRESSION: No significant arthritis in bilateral hands, wrists, feet and sacroiliac joints. Report dictated by Efrain Barnes MD (president and chief executive officer). I, Ko Romano MD have personally reviewed and interpreted this examination/study. 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 Technologist Note: Additional: COMPARISON: Bilateral knees and hand and wrist and foot x-rays on 08/02/2021. FINDINGS: Right hand: No fracture or dislocation is present. The joint spaces are normal. No erosions are seen. ??Bone density is normal. ??The soft tissues are normal. ?? Left hand: No fracture or dislocation is present. The joint spaces are normal. No erosions are seen. ??Bone density is normal. ??The soft tissues are normal. Right wrist: No fracture or dislocation is present. The joint spaces are normal. No erosions are seen. ??Bone density is normal. ??The soft tissues are normal. ?? Left wrist: No fracture or dislocation is present. The joint spaces are normal. No erosions are seen. ??Bone density is normal. ??The soft tissues are normal. ?? Sacroiliac joints: No fracture or dislocation is present. The joint spaces are normal. No erosions are seen. ??Bone density is normal. ??The soft tissues are normal. ?? Right foot: No fracture or dislocation is present. The joint spaces are normal. No erosions are seen. ??Bone density is normal. ??The soft tissues are normal. ?? Left foot: No fracture or dislocation is present. The joint spaces are normal. No erosions are seen. ??Bone density is normal. ??The soft tissues are normal. ?? 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 Technologist Note: Additional: COMPARISON: Bilateral knees and hand and wrist and foot x-rays on 08/02/2021. FINDINGS: Right hand: No fracture or dislocation is present. The joint spaces are normal. No erosions are seen. Bone density is normal. The soft tissues are normal. Left hand: No fracture or dislocation is present. The joint spaces are normal. No erosions are seen. Bone density is normal. The soft tissues are normal. Right wrist: No fracture or dislocation is present. The joint spaces are normal. No erosions are seen. Bone density is normal. The soft tissues are normal. Left wrist: No fracture or dislocation is present. The joint spaces are normal. No erosions are seen. Bone density is normal. The soft tissues are normal. Sacroiliac joints: No fracture or dislocation is present. The jointspaces are normal. No erosions are seen. Bone density is normal. The soft tissues are normal. Right foot: No fracture or dislocation is present. The joint spaces are normal. No erosions are seen. Bone density is normal. The soft tissues are normal. Left foot: No fracture or dislocation is present. The joint spaces are normal. No erosions are seen. Bone density is normal. The soft tissues are normal. IMPRESSION: No significant arthritis in bilateral hands, wrists, feet and sacroiliac joints. Report dictated by Efrain Barnes MD (president and chief executive officer). Ko Pascual MD have personally reviewed and interpreted this examination/study. > Interpreting Provider: Ko Romano MD on 10/17/2023 9:28 PM Will Naqvi MD DIAGNOSTIC IMAGING O RDERABLES * XR WRIST RIGHT 2VW (10/17/2023 1:57 PM CDT) Anatomical Region Laterality Modality Wrist / Hand Radiographic Yoly ging 10/17/2023 2:07 PM CDT Impressions 10/17/2023 9:28 PM CDT IMPRESSION: No significant arthritis in bilateral hands, wrists, feet and sacroiliac joints. Report dictated by Efrain Barnes MD (president and chief executive officer). Ko Pascual MD have personally reviewed and interpreted this examination/study. 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 Technologist Note: Additional: COMPARISON: Bilateral knees and hand and wrist and foot x-rays on 08/02/2021. FINDINGS: Right hand: No fracture or dislocation is present. The joint spaces are normal. No erosions are seen. ??Bone density is normal. ??The soft tissues are normal. ?? Left hand: No fracture or dislocation is present. The joint spaces are normal. No erosions are seen. ??Bone density is normal. ??The soft tissues are normal. Right wrist: No fracture or dislocation is present. The joint spaces are normal. No erosions are seen. ??Bone density is normal. ??The soft tissues are normal. ?? Left wrist: No fracture or dislocation is present. The joint spaces are normal. No erosions are seen. ??Bone density is normal. ??The soft tissues are normal. ?? Sacroiliac joints: No fracture or dislocation is present. The joint spaces are normal. No erosions are seen. ??Bone density is normal. ??The soft tissues are normal. ?? Right foot: No fracture or dislocation is present. The joint spaces are normal. No erosions are seen. ??Bone density is normal. ??The soft tissues are normal. ?? Left foot: No fracture or dislocation is present. The joint spaces are normal. No erosions are seen. ??Bone density is normal. ??The soft tissues are normal. ?? 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 Technologist Note: Additional: COMPARISON: Bilateral knees and hand and wrist and foot x-rays on 08/02/2021. FINDINGS: Right hand: No fracture or dislocation is present. The joint spaces are normal. No erosions are seen. Bone density is normal. The soft tissues are normal. Left hand: No fracture or dislocation is present. The joint spaces are normal. No erosions are seen. Bone density is normal. The soft tissues are normal. Right wrist: No fracture or dislocation is present. The joint spaces are normal. No erosions are seen. Bone density is normal. The soft tissues are normal. Left wrist: No fracture or dislocation is present. The joint spaces are normal. No erosions are seen. Bone density is normal. The soft tissues are normal. Sacroiliac joints: No fracture or dislocation is present. The jointspaces are normal. No erosions are seen. Bone density is normal. The soft tissues are normal. Right foot: No fracture or dislocation is present. The joint spaces are normal. No erosions are seen. Bone density is normal. The soft tissues are normal. Left foot: No fracture or dislocation is present. The joint spaces are normal. No erosions are seen. Bone density is normal. The soft tissues are normal. IMPRESSION: No significant arthritis in bilateral hands, wrists, feet and sacroiliac joints. Report dictated by Efrain Barnes MD (president and chief executive officer). Ko Pascual MD have personally reviewed and interpreted this examination/study. > Interpreting Provider: Ko Romano MD on 10/17/2023 9:28 PM Will Naqvi MD DIAGNOSTIC IMAGING O RDERABLES * XR WRIST LEFT 2VW (10/17/2023 1:57 PM CDT) Anatomical Region Laterality Modality Wrist / Hand Radiographic Yoly ging 10/17/2023 2:07 PM CDT Impressions 10/17/2023 9:28 PM CDT IMPRESSION: No significant arthritis in bilateral hands, wrists, feet and sacroiliac joints. Report dictated by Efrain Barnes MD (president and chief executive officer). I, Ko Romano MD have personally reviewed and interpreted this examination/study. > Interpreting Provider: Ko Romano MD on 10/17/2023 9:28 PM Narrative 10/17/2023 9:28 PM CDT PROCEDURE: ??XR FOOT RIGHT 3VW OR MORE, XR SI JOINTS 3VW OR MORE, XR WRIST RIGHT 2VW, XR WRIST LEFT 2VW, XR HAND RIGHT 3VW OR MORE, XR HAND LEFT 3VW OR MORE, XR FOOT LEFT 3VW OR MORE, DATE/TIME OF EXAM: ??10/17/2023 1:57 PM, LOCATION ??[facility] INDICATION: L40.50: Psoriatic arthritis ([facility]) D84.821: 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[facility]) Z79.899: 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[facility]) L40.9: Psoriasis ADDITIONAL CLINICAL INFORMATION: Ordering Provider Reason For Exam: ??Please evaluate for signs of inflammatory arthropathy. Technologist Note: Additional: COMPARISON: Bilateral knees and hand and wrist and foot x-rays on 08/02/2021. FINDINGS: Right hand: No fracture or dislocation is present. The joint spaces are normal. No erosions are seen. ??Bone density is normal. ??The soft tissues are normal. ?? Left hand: No fracture or dislocation is present. The joint spaces are normal. No erosions are seen. ??Bone density is normal. ??The soft tissues are normal. Right wrist: No fracture or dislocation is present. The joint spaces are normal. No erosions are seen. ??Bone density is normal. ??The soft tissues are normal. ?? Left wrist: No fracture or dislocation is present. The joint spaces are normal. No erosions are seen. ??Bone density is normal. ??The soft tissues are normal. ?? Sacroiliac joints: No fracture or dislocation is present. The joint spaces are normal. No erosions are seen. ??Bone density is normal. ??The soft tissues are normal. ?? Right foot: No fracture or dislocation is present. The joint spaces are normal. No erosions are seen. ??Bone density is normal. ??The soft tissues are normal. ?? Left foot: No fracture or dislocation is present. The joint spaces are normal. No erosions are seen. ??Bone density is normal. ??The soft tissues are normal. ?? 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 Technologist Note: Additional: COMPARISON: Bilateral knees and hand and wrist and foot x-rays on 08/02/2021. FINDINGS: Right hand: No fracture or dislocation is present. The joint spaces are normal. No erosions are seen. Bone density is normal. The soft tissues are normal. Left hand: No fracture or dislocation is present. The joint spaces are normal. No erosions are seen. Bone density is normal. The soft tissues are normal. Right wrist: No fracture or dislocation is present. The joint spaces are normal. No erosions are seen. Bone density is normal. The soft tissues are normal. Left wrist: No fracture or dislocation is present. The joint spaces are normal. No erosions are seen. Bone density is normal. The soft tissues are normal. Sacroiliac joints: No fracture or dislocation is present. The jointspaces are normal. No erosions are seen. Bone density is normal. The soft tissues are normal. Right foot: No fracture or dislocation is present. The joint spaces are normal. No erosions are seen. Bone density is normal. The soft tissues are normal. Left foot: No fracture or dislocation is present. The joint spaces are normal. No erosions are seen. Bone density is normal. The soft tissues are normal. IMPRESSION: No significant arthritis in bilateral hands, wrists, feet and sacroiliac joints. Report dictated by Efrain Barnes MD (president and chief executive officer). Ko Pascual MD have personally reviewed and interpreted this examination/study. > Interpreting Provider: Ko Romano MD on 10/17/2023 9:28 PM Will Naqvi MD DIAGNOSTIC IMAGING O RDERABLES * XR FOOT RIGHT 3VW OR MORE (10/17/2023 1:57 PM CDT) Anatomical Region Laterality Modality Ankle / Foot Radiographic Yoly ging 10/17/2023 2:07 PM CDT Impressions 10/17/2023 9:28 PM CDT IMPRESSION: No significant arthritis in bilateral hands, wrists, feet and sacroiliac joints. Report dictated by Efrain Barnes MD (president and chief executive officer). Ko Pascual MD have personally reviewed and interpreted this examination/study. 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 Technologist Note: Additional: COMPARISON: Bilateral knees and hand and wrist and foot x-rays on 08/02/2021. FINDINGS: Right hand: No fracture or dislocation is present. The joint spaces are normal. No erosions are seen. ??Bone density is normal. ??The soft tissues are normal. ?? Left hand: No fracture or dislocation is present. The joint spaces are normal. No erosions are seen. ??Bone density is normal. ??The soft tissues are normal. Right wrist: No fracture or dislocation is present. The joint spaces are normal. No erosions are seen. ??Bone density is normal. ??The soft tissues are normal. ?? Left wrist: No fracture or dislocation is present. The joint spaces are normal. No erosions are seen. ??Bone density is normal. ??The soft tissues are normal. ?? Sacroiliac joints: No fracture or dislocation is present. The joint spaces are normal. No erosions are seen. ??Bone density is normal. ??The soft tissues are normal. ?? Right foot: No fracture or dislocation is present. The joint spaces are normal. No erosions are seen. ??Bone density is normal. ??The soft tissues are normal. ?? Left foot: No fracture or dislocation is present. The joint spaces are normal. No erosions are seen. ??Bone density is normal. ??The soft tissues are normal. ?? 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 Technologist Note: Additional: COMPARISON: Bilateral knees and hand and wrist and foot x-rays on 08/02/2021. FINDINGS: Right hand: No fracture or dislocation is present. The joint spaces are normal. No erosions are seen. Bone density is normal. The soft tissues are normal. Left hand: No fracture or dislocation is present. The joint spaces are normal. No erosions are seen. Bone density is normal. The soft tissues are normal. Right wrist: No fracture or dislocation is present. The joint spaces are normal. No erosions are seen. Bone density is normal. The soft tissues are normal. Left wrist: No fracture or dislocation is present. The joint spaces are normal. No erosions are seen. Bone density is normal. The soft tissues are normal. Sacroiliac joints: No fracture or dislocation is present. The jointspaces are normal. No erosions are seen. Bone density is normal. The soft tissues are normal. Right foot: No fracture or dislocation is present. The joint spaces are normal. No erosions are seen. Bone density is normal. The soft tissues are normal. Left foot: No fracture or dislocation is present. The joint spaces are normal. No erosions are seen. Bone density is normal. The soft tissues are normal. IMPRESSION: No significant arthritis in bilateral hands, wrists, feet and sacroiliac joints. Report dictated by Efrain Barnes MD (president and chief executive officer). Ko Pascual MD have personally reviewed and interpreted this examination/study. > Interpreting Provider: Ko Romano MD on 10/17/2023 9:28 PM Will Naqvi MD DIAGNOSTIC IMAGING O RDERABLES * XR HAND RIGHT 3VW OR MORE (10/17/2023 1:57 PM CDT) Anatomical Region Laterality Modality Wrist / Hand Radiographic Yoly ging 10/17/2023 2:07 PM CDT Impressions 10/17/2023 9:28 PM CDT IMPRESSION: No significant arthritis in bilateral hands, wrists, feet and sacroiliac joints. Report dictated by Efrain Branes MD (president and chief executive officer). I, Ko Romano MD have personally reviewed and interpreted this examination/study. 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 Technologist Note: Additional: COMPARISON: Bilateral knees and hand and wrist and foot x-rays on 08/02/2021. FINDINGS: Right hand: No fracture or dislocation is present. The joint spaces are normal. No erosions are seen. ??Bone density is normal. ??The soft tissues are normal. ?? Left hand: No fracture or dislocation is present. The joint spaces are normal. No erosions are seen. ??Bone density is normal. ??The soft tissues are normal. Right wrist: No fracture or dislocation is present. The joint spaces are normal. No erosions are seen. ??Bone density is normal. ??The soft tissues are normal. ?? Left wrist: No fracture or dislocation is present. The joint spaces are normal. No erosions are seen. ??Bone density is normal. ??The soft tissues are normal. ?? Sacroiliac joints: No fracture or dislocation is present. The joint spaces are normal. No erosions are seen. ??Bone density is normal. ??The soft tissues are normal. ?? Right foot: No fracture or dislocation is present. The joint spaces are normal. No erosions are seen. ??Bone density is normal. ??The soft tissues are normal. ?? Left foot: No fracture or dislocation is present. The joint spaces are normal. No erosions are seen. ??Bone density is normal. ??The soft tissues are normal. ?? 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 Technologist Note: Additional: COMPARISON: Bilateral knees and hand and wrist and foot x-rays on 08/02/2021. FINDINGS: Right hand: No fracture or dislocation is present. The joint spaces are normal. No erosions are seen. Bone density is normal. The soft tissues are normal. Left hand: No fracture or dislocation is present. The joint spaces are normal. No erosions are seen. Bone density is normal. The soft tissues are normal. Right wrist: No fracture or dislocation is present. The joint spaces are normal. No erosions are seen. Bone density is normal. The soft tissues are normal. Left wrist: No fracture or dislocation is present. The joint spaces are normal. No erosions are seen. Bone density is normal. The soft tissues are normal. Sacroiliac joints: No fracture or dislocation is present. The jointspaces are normal. No erosions are seen. Bone density is normal. The soft tissues are normal. Right foot: No fracture or dislocation is present. The joint spaces are normal. No erosions are seen. Bone density is normal. The soft tissues are normal. Left foot: No fracture or dislocation is present. The joint spaces are normal. No erosions are seen. Bone density is normal. The soft tissues are normal. IMPRESSION: No significant arthritis in bilateral hands, wrists, feet and sacroiliac joints. Report dictated by Efrain Barnes MD (president and chief executive officer). Ko Pascual MD have personally reviewed and interpreted this examination/study. > Interpreting Provider: Ko Romano MD on 10/17/2023 9:28 PM Will Naqvi MD DIAGNOSTIC IMAGING O RDERABLES * XR HAND LEFT 3VW OR MORE (10/17/2023 1:57 PM CDT) Anatomical Region Laterality Modality Wrist / Hand Radiographic Yoly ging 10/17/2023 2:07 PM CDT Impressions 10/17/2023 9:28 PM CDT IMPRESSION: No significant arthritis in bilateral hands, wrists, feet and sacroiliac joints. Report dictated by Efrain Barnes MD (president and chief executive officer). Ko Pascual MD have personally reviewed and interpreted this examination/study. > Interpreting Provider: Ko Romano MD on 10/17/2023 9:28 PM Narrative 10/17/2023 9:28 PM CDT PROCEDURE: ??XR FOOT RIGHT 3VW OR MORE, XR SI JOINTS 3VW OR MORE, XR WRIST RIGHT 2VW, XR WRIST LEFT 2VW, XR HAND RIGHT 3VW OR MORE, XR HAND LEFT 3VW OR MORE, XR FOOT LEFT 3VW OR MORE, DATE/TIME OF EXAM: ??10/17/2023 1:57 PM, LOCATION ??[facility] INDICATION: L40.50: Psoriatic arthritis ([facility]) D84.821: 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[facility]) Z79.899: 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[facility]) L40.9: Psoriasis ADDITIONAL CLINICAL INFORMATION: Ordering Provider Reason For Exam: ??Please evaluate for signs of inflammatory arthropathy. Technologist Note: Additional: COMPARISON: Bilateral knees and hand and wrist and foot x-rays on 08/02/2021. FINDINGS: Right hand: No fracture or dislocation is present. The joint spaces are normal. No erosions are seen. ??Bone density is normal. ??The soft tissues are normal. ?? Left hand: No fracture or dislocation is present. The joint spaces are normal. No erosions are seen. ??Bone density is normal. ??The soft tissues are normal. Right wrist: No fracture or dislocation is present. The joint spaces are normal. No erosions are seen. ??Bone density is normal. ??The soft tissues are normal. ?? Left wrist: No fracture or dislocation is present. The joint spaces are normal. No erosions are seen. ??Bone density is normal. ??The soft tissues are normal. ?? Sacroiliac joints: No fracture or dislocation is present. The joint spaces are normal. No erosions are seen. ??Bone density is normal. ??The soft tissues are normal. ?? Right foot: No fracture or dislocation is present. The joint spaces are normal. No erosions are seen. ??Bone density is normal. ??The soft tissues are normal. ?? Left foot: No fracture or dislocation is present. The joint spaces are normal. No erosions are seen. ??Bone density is normal. ??The soft tissues are normal. ?? 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 Technologist Note: Additional: COMPARISON: Bilateral knees and hand and wrist and foot x-rays on 08/02/2021. FINDINGS: Right hand: No fracture or dislocation is present. The joint spaces are normal. No erosions are seen. Bone density is normal. The soft tissues are normal. Left hand: No fracture or dislocation is present. The joint spaces are normal. No erosions are seen. Bone density is normal. The soft tissues are normal. Right wrist: No fracture or dislocation is present. The joint spaces are normal. No erosions are seen. Bone density is normal. The soft tissues are normal. Left wrist: No fracture or dislocation is present. The joint spaces are normal. No erosions are seen. Bone density is normal. The soft tissues are normal. Sacroiliac joints: No fracture or dislocation is present. The jointspaces are normal. No erosions are seen. Bone density is normal. The soft tissues are normal. Right foot: No fracture or dislocation is present. The joint spaces are normal. No erosions are seen. Bone density is normal. The soft tissues are normal. Left foot: No fracture or dislocation is present. The joint spaces are normal. No erosions are seen. Bone density is normal. The soft tissues are normal. IMPRESSION: No significant arthritis in bilateral hands, wrists, feet and sacroiliac joints. Report dictated by Efrain Barnes MD (president and chief executive officer). Ko Pascual MD have personally reviewed and interpreted this examination/study. > Interpreting Provider: Ko Romano MD on 10/17/2023 9:28 PM Will Naqvi MD DIAGNOSTIC IMAGING O RDERABLES * XR FOOT LEFT 3VW OR MORE (10/17/2023 1:57 PM CDT) Anatomical Region Laterality Modality Ankle / Foot Radiographic Yoly ging 10/17/2023 2:07 PM CDT Impressions 10/17/2023 9:28 PM CDT IMPRESSION: No significant arthritis in bilateral hands, wrists, feet and sacroiliac joints. Report dictated by Efrain Barnes MD (president and chief executive officer). Ko Pascual MD have personally reviewed and interpreted this examination/study. 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 Technologist Note: Additional: COMPARISON: Bilateral knees and hand and wrist and foot x-rays on 08/02/2021. FINDINGS: Right hand: No fracture or dislocation is present. The joint spaces are normal. No erosions are seen. ??Bone density is normal. ??The soft tissues are normal. ?? Left hand: No fracture or dislocation is present. The joint spaces are normal. No erosions are seen. ??Bone density is normal. ??The soft tissues are normal. Right wrist: No fracture or dislocation is present. The joint spaces are normal. No erosions are seen. ??Bone density is normal. ??The soft tissues are normal. ?? Left wrist: No fracture or dislocation is present. The joint spaces are normal. No erosions are seen. ??Bone density is normal. ??The soft tissues are normal. ?? Sacroiliac joints: No fracture or dislocation is present. The joint spaces are normal. No erosions are seen. ??Bone density is normal. ??The soft tissues are normal. ?? Right foot: No fracture or dislocation is present. The joint spaces are normal. No erosions are seen. ??Bone density is normal. ??The soft tissues are normal. ?? Left foot: No fracture or dislocation is present. The joint spaces are normal. No erosions are seen. ??Bone density is normal. ??The soft tissues are normal. ?? 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 Technologist Note: Additional: COMPARISON: Bilateral knees and hand and wrist and foot x-rays on 08/02/2021. FINDINGS: Right hand: No fracture or dislocation is present. The joint spaces are normal. No erosions are seen. Bone density is normal. The soft tissues are normal. Left hand: No fracture or dislocation is present. The joint spaces are normal. No erosions are seen. Bone density is normal. The soft tissues are normal. Right wrist: No fracture or dislocation is present. The joint spaces are normal. No erosions are seen. Bone density is normal. The soft tissues are normal. Left wrist: No fracture or dislocation is present. The joint spaces are normal. No erosions are seen. Bone density is normal. The soft tissues are normal. Sacroiliac joints: No fracture or dislocation is present. The jointspaces are normal. No erosions are seen. Bone density is normal. The soft tissues are normal. Right foot: No fracture or dislocation is present. The joint spaces are normal. No erosions are seen. Bone density is normal. The soft tissues are normal. Left foot: No fracture or dislocation is present. The joint spaces are normal. No erosions are seen. Bone density is normal. The soft tissues are normal. IMPRESSION: No significant arthritis in bilateral hands, wrists, feet and sacroiliac joints. Report dictated by Efrain Barnes MD (president and chief executive officer). I, Ko Romano MD have personally reviewed and interpreted this examination/study. > Interpreting Provider: Ko Romano MD on 10/17/2023 9:28 PM Will Naqvi MD DIAGNOSTIC IMAGING O RDERABLES documented in this encounter Visit Diagnoses Diagnosis Psoriatic arthritis (HCC) Psoriatic arthropathy 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HCC) Psoriasis Other psoriasis documented in this encounter Care Teams Hemmer Chainstitch Relationship Specialty Start Date End Date Richard Chacon III, MD [address] [phone] PCP - General Internal Medicine 01/29/22 Christa Velez APRN-ACCOUNT ASSOCIATE [address] [phone] Psychiatrist Nurse Practitioner 08/07/21 Morgan Randhawa MD [address] [facility] [place] [phone] Resident - PCP Internal Medicine 01/29/22 Pineda Randhawa MD [address] [facility] [place] [phone] Resident Rheumatology 12/24/22 Will Naqvi MD [address] DIV [place] [phone] Injection Moulding Machine Operator Rheumatology 12/24/22 Pineda Randhawa MD [address] [place] [address] Resident Rheumatology 02/04/23 Estee Peck MD [address] [facility] [address] [place] [address] Dermatology 02/04/23 documented as of this encounter
--- OUTSIDE RECORDS SUMMARY | 2024-07-15 18:37 | XMS_ITS | Encounter Summary ---
Author Organization [facility] Address [address] [place] [address] Care Team Providers Care Journalism Intern Name Role Phone Agustin Christa HARVEY-MANAGEMENT INTERN Unavailable [phone] Osawldo BOSCH MD, Francis G Primary Care Provider [phone] Morgan Randhawa MD Unavailable Pineda Randhawa MD Unavailable Will Naqvi MD Unavailable Pineda Randhawa MD Unavailable Estee Peck MD Unavailable Oswaldo BOSCH MD, Francis G Unavailable Reason for Referral * Medication Prior Authorization - Denied Specialty Diagnoses / Procedures Referred By Contac t Referred To Contact Diagnoses Routine health maintenance Richard Chacon III, MD [address] [address] Referral ID Status Reason Start Date Expiration Date Visits Re quested Visits Authorized [id number] Denied 1 1 Reason for Visit * Reason Comments Wellness Exam Encounter Details Date Type Department Care Team ([facility] Contact Info) Description 02/12/2024 1:30 PM CDT Office Visit [facility] - Internal Med [address] [facility] [place] [address] Richard Chacon III, MD [facility] [address] [place] [phone] Routine general medical examination at health care facility (Primary Dx); Class 2 obesity with body mass index (BMI) of 37.0 to 37.9 in adult, unspecified obesity type, unspecified whether serious comorbidity present; Prediabetes; Routine health maintenance; Weight gain due to medication Social History Tobacco Use Types Packs/Day Years Used Date Smoking Tobacco: Never Smokeless Tobacco: Never Tobacco Cessation:Counseling Given: Not Answered Alcohol Use Standard Drinks/Week Comments No 0 (1 standard drink = 0.6 oz pur e alcohol) PHQ-2 Answer Date Recorded Patient Health Questionnaire-2 Score 0 02/12/2024 Sex and Gender Information Value Date Recorded Sex Assigned at Not on file Gender Identity Not on file Sexual Orientation Not on file documented as of this encounter Last Filed Vital Signs Vital Sign Reading Time Taken Comments Blood Pressure 105/71 02/12/2024 1:37 PM CDT Pulse 94 02/12/2024 1:37 PM CDT Temperature 37.1 ??C (98.7 ??F) 02/12/2024 1:37 PM CD T Respiratory Rate - - Oxygen Saturation 96% 02/12/2024 1:37 PM CDT Inhaled Oxygen Concentration - - Weight 122.5 kg (270 lb) 02/12/2024 1:37 PM CDT Height 170.2 cm (5' 7 ) 02/12/2024 1:37 PM CDT Body Mass Index 42.29 02/12/2024 1:37 PM CDT documented in this encounter Patient Instructions * Patient Instructions* Richard Chacon III, MD - 02/12/2024 1:52 PM CDT Medicare Annual Wellness Visit Checklist Patient Care Team: Richard Chacon III, MD as PCP - General (Internal Medicine) Richard Chacon III, MD as PCP - [facility] P[facility] Christa Velez APRN-JESSICA as Psychiatrist (Nurse Practitioner) Morgan Randhawa MD as Resident - PCP (Internal Medicine) Pineda Randhawa MD as Resident (Rheumatology) Will Naqvi MD as Community Action Worker (Rheumatology) Pineda Randhawa MD as Resident (Rheumatology) Estee Peck MD (Dermatology) The following list shows your recommended preventative service schedule and due dates. Health Maintenance Topic Date Due ??? ZOSTER VACCINE (1 of 2) Never done ??? COVID-19 VACCINE ( - 2022-24 season) 2023 ??? INFLUENZA VACCINE (1) 02/23/2024 ??? DTAP/TDAP/TD VACCINES (7 - Td or Tdap) 04/03/2031 ??? PNEUMOCOCCAL VACCINE Completed ??? HIV SCREENING Completed ??? HEPATITIS B VACCINE Completed ??? HEPATITIS C SCREENING Completed ??? MEDICARE AWV - CALENDAR YEAR Completed ??? DEPRESSION SCREENING Completed ??? HPV VACCINE Completed ??? MENINGOCOCCAL VACCINE Completed ??? HIB VACCINE Aged Out Topics that are Completed mean that they will not need to be done again. Topics that are Aged Out are things that have not been done but no longer are applicable to you. ?? Keep up-to-date Healthcare Power of Contact Center Manager and Living Will documents with our office. In any emergency or unexpected hospitalization, these documents will then be visible for care providers to honor your wishes. Patient Education documented in this encounter Progress Notes * Richard Chacon III, MD - 02/12/2024 1:48 PM CDT [facility] General Internal Medicine Est Patient Note CC: Chief Complaint Patient presents with Wellness Exam History of Present Illness: Manoj Horner is a 28 year old male presenting to [facility] for follow up visit. Started on topiramate for headaches. Others meds the same. Past Medical History: Reviewed and updated in Epic History tab Past Surgical History: Reviewed and updated in Epic History tab Family History: Reviewed and updated in Epic History tab Social History: Reviewed and updated in Epic History tab Medications: Reviewed and updated in Epic Medications tab Allergies: Reviewed and updated in Epic Allergies tab Review of Systems: 10 point ROS done and negative except as stated in HPI Physical Exam: BP 105/71 Pulse 94 Temp 98.7 ??F (37.1 ??C) (Oral) Ht 1.702 m (5' 7 ) Wt 122.5 kg (270 lb) SpO2 96% Wt Readings from Last 3 Encounters: 02/12/24 122.5 kg (270 lb) 01/13/24 124.5 kg (274 lb 6 oz) 12/18/23 122 kg (269 lb) Gen: male in NAD HEENT: NCAT, EOMI, no scleral icterus Resp: CTAB, no wheezes/rales/rhonchi CV: RRR, no mrg's. Abd: Soft, NT/ND. +BS's Ext: No CCE. Neuro: alert/conversational/STUBBS Labs: Personally reviewed. Recent Labs Component Name 07/24/23 1425 04/03/21 1240 HGBA1C 5.7* 5.3 Imaging/Other diagnostic testing: Personally reviewed. Assessment & Plan: #obesity, related to lifestyle and also obesogenic meds (olanzapine) #metabolic syndrome #antipsychotic associated weight gain, as side effect of antipsychotic medication -c/b prediabetes, dyslipidemia -exacerbated by weight gain -on topiramate for headaches -start metformin #prediabetes -start metformin #psoriasis, psoriatic -followed by Derm and Rheum - naproxen, cosentyx, calcipotrene topical, cosentyx #h/o vit D deficiency -continue cholecalciferol #h/o migraine -follows with neuro -on elavil -on topiramate #bpd -follows with psych -olanzapine 10, citalopram 40, bupropion #h/o hearing loss -recently got hearing aids #RHM -shingrex I confirm that I have managed the broad scope of the patient???s health needs by furnishing care for some or all the patient???s acute and/or chronic conditions across a spectrum of diagnoses and organ systems that will require ongoing care with myself or someone on my team. This visit has been a part of the consistent, comprehensive, and ongoing management of the chronic medical condition(s) listed above for patient. DOS: 02/12/2024 F JAMES CHACON III, MD Medicare Annual Wellness Visit Assessment and Plan: Medicare Health Risk Assessment reviewed and documented in note. Medicare checklist provided with Preventative services. Care Team and screening schedule. Subjective: The patient is 28 year old male who presents for Medicare Annual Wellness Visit. I have reviewed the patient's medical history in detail and updated the computerized patient record. HRA Questionnaire SAFETY: Patient has concerns about falling: Counseled on fall prevention and [facility] fall prevention guidance provided in AVS. Patient is unsteady while walking/standing: D/t knee pain. Continue treatment for RA HEARING AND DENTAL: Hearing comments: Following w ENT FUNCTION: Patient has problems with pain/aches/soreness or discomfort: D/t RA. On celebrex per rheum Advance Directive Information Goals of care discussion Not appropriate for visit given pts age Screening Information PHQ-2: 0 (02/12/2024) Mini Co (02/12/2024) Care team updated and provided in AVS Objective: BP 105/71 Pulse 94 Temp 98.7 ??F (37.1 ??C) (Oral) Ht 1.702 m (5' 7 ) Wt 122.5 kg (270 lb) SpO2 96% BMI 42.29 kg/m?? No results found. Physical exam as above documented in this encounter Plan of Treatment Upcoming Encounters Date Type Department Care Team (Late st Contact Info) Description 10/21/2024 1:30 PM CDT Office Visit [facility] - Rheumatology [address] [place] [phone] Paulino Youngblood MD [address] [place] [address] [place] [phone] 11/30/2024 3:00 PM CDT Office Visit [facility] - ENT [address] [place] [phone] Froilan Monae MD [address] [place] [address] [place] [address] 02/15/2025 10:00 AM CDT Office Visit [facility] - Internal Med [address] [place] [address] [place] [phone] Richard Chacon III, MD [address] [place] [address] [address] [place] [address] documented as of this encounter Visit Diagnoses Diagnosis Routine general medical examination at health care facility- Primary Routine general medical examination at a health care facility Class 2 obesity with body mass index (BMI) of 37.0 to 37.9 in adult, unspecified obesity type, unspecified whether serious comorbidity present Prediabetes Other abnormal glucose Routine health maintenance Routine general medical examination at a health care facility Weight gain due to medication Other symptoms concerning nutrition, metabolism, and development documented in this encounter Care Teams Journalism Intern Relationship Specialty Start Date End Date Richard Chacon III, MD [address] [place] [address] [address] [place] [address] PCP - General Internal Medicine 01/29/22 Richard Chacon III, MD [address] [place] [address] [address] [place] [address] PCP - [facility] NIYAH SALCIDO P4P 11/23/23 Christa Velez APRN-MANAGEMENT INTERN [address] [phone] Psychiatrist Nurse Practitioner 08/07/21 Morgan Randhawa MD [facility] [place] [place] [phone] Resident - PCP Internal Medicine 01/29/22 Pineda Randhawa MD [address] [place] [address] [place] [phone] Resident Rheumatology 12/24/22 Will Naqvi MD [address] [place] [address] [address] [place] [address] Community Action Worker Rheumatology 12/24/22 Pineda Randhawa MD [address] [facility] [address] [place] [phone] Resident Rheumatology 02/04/23 Estee Peck MD [address] [place] [address] Dermatology 02/04/23 documented as of this encounter
--- OUTSIDE RECORDS SUMMARY | 2024-07-15 18:37 | XMS_ITS | Encounter Summary ---
Author Organization [facility] Address [address] [place] [address] Care Team Providers Care Digital Business Analyst Name Role Phone Christa Velez HARVEY-SENIOR SALES DIRECTOR Unavailable [phone] Oswaldo BOSCH MD, Richard Sanchez Primary Care Provider [phone] Morgan Randhawa MD Unavailable Pineda Randhawa MD Unavailable Will Naqvi MD Unavailable [phone] Pineda Randhawa MD Unavailable Estee Peck MD Unavailable [phone] Reason for Visit * Reason Comments Refill Request Encounter Details Date Type Department Care Team (Late st Contact Info) Description 05/09/2023 Refill [facility] - Rheumatology [facility] [facility], [place] [address] Pineda Randhawa MD [address] [place] [phone] Refill Request Social History Tobacco Use [...] Telephone Encounter - Miguel Ángel Harris - 05/09/2023 2:08 PM CST Refill Request Manoj Roe [place] UVALDO:12/26/2022 NOV scheduled: 07/03/2023 LRF: 01/18/2023 Qty Disp: 2mL # of refills:3 Allergies: Allergies Allergen Reactions ??? Food Headache Spaghetti sauce and mozzarella cheese Pended Medication Order: Requested Prescriptions Pending Prescriptions Disp Refills ??? Cosentyx Sensoready, 300 MG, 150 MG/ML SOAJ pen [Pharmacy Med Name: COSENTYX 150MG/ML SENSRDY PEN 2X1ML] 2 mL 3 Sig: INJECT 300MG UNDER THE SKIN EVERY 28 DAYS COLLECTION TECHNICIAN documented in this encounter Plan of Treatment Upcoming Encounters Date Type Department Care Team (Late st Contact Info) Description 10/21/2024 1:30 PM CDT Office Visit [facility] - Rheumatology [address] [place] [phone] Paulino Youngblood MD [address] [place] [address] [place] [phone] 11/30/2024 3:00 PM CDT Office Visit [facility] - ENT [address] [place] [phone] Froilan Monae MD [address] [place] [address] DEPT [place] [address] 02/15/2025 10:00 AM CDT [facility] [address] [place] [phone] Richard Chacon III, MD [address] [place] [address] [address] [place] [phone] documented as of this encounter Visit Diagnoses Not on filedocumented in this encounter Care Teams Digital Business Analyst Relationship Specialty Start Date End Date Richard Chacon III, MD [address] [place] [phone] PCP - General Internal Medicine 01/29/22 Christa Velez APRN-SENIOR SALES DIRECTOR [address] [place] [phone] Psychiatrist Nurse Practitioner 08/07/21 Morgan Randhawa MD [address] [facility] [place] [phone] Resident - PCP Internal Medicine 01/29/22 Pineda Randhawa MD [address] [facility] [place] [phone] Resident Rheumatology 12/24/22 Will Naqvi MD [address] [facility] [address] [place] [phone] Clerical Administrator Rheumatology 12/24/22 Pineda Randhawa MD [address] [facility] [address] [place] [phone] Resident Rheumatology 02/04/23 Estee Peck MD [address] [facility] [address]L [place] [address] Dermatology 02/04/23 documented as of this encounter
--- OUTSIDE RECORDS SUMMARY | 2024-07-15 18:37 | XMS_ITS | Encounter Summary ---
Author Organization [facility] Address [address] [place] [address] Care Team Providers Care Industrial Hygiene Engineer Name Role Phone Christa Velez APRN-TREATMENT COORDINATOR Unavailable [phone] Oswaldo BOSCH MD, Francis G Primary Care Provider [phone] Morgan Randhawa MD Unavailable Pineda Randhawa MD Unavailable Will Naqvi MD Unavailable [phone] Pineda Randhawa MD Unavailable Estee Peck MD Unavailable Oswaldo BOSCH MD, Francis G Unavailable Reason for Visit * Reason Comments Refill Request Encounter Details Date Type Department Care Team (Late st Contact Info) Description 06/07/2024 Refill [facility] - Rheumatology [address] [place] [address], [place] [address] Paulino Youngblood MD [address] [place] [address] [place] [address] Refill Request Social History Tobacco Use Types [...] Telephone Encounter - Miguel Ángel Harris - 06/08/2024 10:29 AM CST Refill Request Manoj Horner UVALDO: 12/18/2023 NOV scheduled: 07/01/2024 LRF: 01/01/2024 Qty Disp: 120 # of refills: 1 Allergies: Allergies Allergen Reactions Food Headache Spaghetti sauce and mozzarella cheese Pended Medication Order: Requested Prescriptions Pending Prescriptions Disp Refills naproxen (Naprosyn) 500 MG tablet [Pharmacy Med Name: NAPROXEN 500MG TABLETS] 120 tablet 1 Sig: TAKE 1 TABLET BY MOUTH TWICE DAILY PUSHER documented in this encounter Plan of Treatment Upcoming Encounters Date Type Department Care Team (Late st Contact Info) Description 10/21/2024 1:30 PM CDT Office Visit [facility] - Rheumatology [address] [place] [phone] Paulino Youngblood MD [address] [place] [address] [place] [phone] 11/30/2024 3:00 PM CDT Office Visit [facility] - ENT [address] [place] [phone] Froilan Monae MD [address] [place] [address] [place] [address] 02/15/2025 10:00 AM CDT [facility] [address] [place] [phone] Richard Chacon III, MD [address] [place] [address] [place] [phone] documented as of this encounter Visit Diagnoses Not on filedocumented in this encounter Care Teams Industrial Hygiene Engineer Relationship Specialty Start Date End Date Richard Chacon III, MD [address] [place] [phone] PCP - General Internal Medicine 01/29/22 Richard Chacon III, MD [address] [place] [phone] PCP - Attributed-[facility] NIYAH SALCIDO P4P 11/23/23 Christa Velez APRN-TREATMENT COORDINATOR [address] [phone] Psychiatrist Nurse Practitioner 08/07/21 Morgan Randhawa MD [address] [facility] [place] [phone] Resident - PCP Internal Medicine 01/29/22 Pineda Randhawa MD [address] [facility] [place] [phone] Resident Rheumatology 12/24/22 Will Naqvi MD [address] [facility] [address] [place] [phone] Trucking Contractor Rheumatology 12/24/22 Pineda Randhawa MD [address] [place] [address] Resident Rheumatology 02/04/23 Estee Peck MD [address] [facility] 3L [place] [address] Dermatology 02/04/23 documented as of this encounter
--- OUTSIDE RECORDS SUMMARY | 2024-07-15 18:37 | XMS_ITS | Encounter Summary ---
Author Organization [facility] Address [address] [place] [address] Care Team Providers Care Patient Safety Coordinator Name Role Phone AyakacharlotteChrista HARVEY-GUIDE SETTER Unavailable [phone] Oswaldo BOSCH MD, Francis G Primary Care Provider [phone] Morgan Randhawa MD Unavailable Pineda Randhawa MD Unavailable Will Naqvi MD Unavailable [phone] Pineda Randhawa MD Unavailable Estee Peck MD Unavailable Reason for Visit * Reason Comments Psoriatic Arthritis Encounter Details Date Type Department Care Team (Late st Contact Info) Description 07/24/2023 2:00 PM BARLEY STEEPER Office Visit [facility] - Rheumatology [address] [place] [address] [place] [phone] Pineda Randhawa MD [address] [place] [address] Rd [address] [place] [phone] Psoriatic arthritis (HCC) (Primary Dx); 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HCC); Psoriasis Social History Tobacco Use Types Packs/Day Years [...] Sign Reading Time Taken Comments Blood Pressure 144/90 07/24/2023 2:19 PM BARLEY STEEPER 1st take 157/99 Pulse 109 07/24/2023 2:19 PM BARLEY STEEPER Temperature 36.8 ??C (98.2 ??F) 07/24/2023 2 :19 PM BARLEY STEEPER Respiratory Rate - - Oxygen Saturation 97% 07/24/2023 2:1 9 PM BARLEY STEEPER Inhaled Oxygen Concentration - - Weight 116.1 kg (256 lb) 07/24/2023 2:1 9 PM BARLEY STEEPER Height 172.7 cm (5' 7.99 ) 07/24/2023 2 :19 PM BARLEY STEEPER Body Mass Index 38.93 07/24/2023 2:19 PM BARLEY STEEPER documented in this encounter Patient Instructions * Patient Instructions* Pineda Randhawa MD - 07/24/2023 2:54 PM BARLEY STEEPER You were seen for Psoriatic Arthritis. Continue same meds. Get labs and X rays before next visit. .If you need to schedule,change or cancel your Rheumatology appointment -at the [facility] ([facility]) at [address] [place] [address], call [phone] or [phone] (option 1) If you choose to get labs or imaging at an outside facility, it is your (as the patient) responsibility to have these results faxed to us at [phone] If you need a refill, please call your Pharmacy first and have them send us a refill request via Fax at [phone]. If you have been given a referral to a new specialist at [facility] and have not received a call to schedule within 1 week, please call [phone] to schedule your visit. If you have been referred to Physical Therapy, but do not receive a call from them to schedule an appointment within 1 week, please call [phone] to schedule your Physical Therapy appointment. You can also utilize the Physical Therapy website at [email or web address] to make an appointment. If you need to leave a message for Dr. Randhawa you can send her an electronic message via [employer]. If you have an emergency after hours, you can reach the front desk Fellow by calling the Adjunct Instructor Of Women'S Studies at [phone], but please seek appropriate care at Urgent Care or Emergency Room. EY STEEPER documented in this encounter Progress Notes * Pineda Randhawa MD - 07/24/2023 2:45 PM CST . Rheumatology Clinic Consultation Note Patient: Manoj Horner ( , 1995, 27 year old male) Encounter Date: 07/24/2023 Chief Concern: Follow up for PsA Subjective Patient is a a 27 year old male PMHx of PSO, autism spectrum disorder bipolar is here to follow up for arthralgia, working diagnosis possible PsA. On Cosentyx. Interim hx07/24/23: Patient mentioned that he is doing on the current regimen of Cossentyx and Naproxen and has been complaint with the meds. Once in a while has stiffness in hands and swelling of fingers. Has no pic of that today. He reported, if he does not take the naproxen, his joints hurt. No new skin lesions are reported. No synovitis present today Current meds: Cosentyx 300 mg SQ every 28 days since September 2021. Naproxen 500 mg bid Previous medication MTX - did'nt help Review of Systems: Other systems reviewed and negative or noncontributory except as stated in the HPI. Home Medications: Current Outpatient Medications: amitriptyline (Elavil) 25 MG tablet, Take 1 (one) tablet by mouth at bedtime, Disp: , Rfl: buPROPion SR 12hr (WELLBUTRIN SR) 200 MG tablet, Take 1 (one) tablet by mouth 2 times daily, Disp: , Rfl: calcipotriene (DOVONEX) 0.005 % cream, Apply to affected area 2 times daily, Disp: 60 g, Rfl: 3 citalopram (CELEXA) 40 MG tablet, TAKE 1 TABLET BY MOUTH EVERY DAY IN THE MORNING, Disp: , Rfl: clobetasol (TEMOVATE) 0.05 % ointment, APPLY TOPICALLY TO AFFECTED AREA(S) OF KNEES AND ELBOWS TWICE DAILY, Disp: 60 g, Rfl: 3 Cosentyx Sensoready, 300 MG, 150 MG/ML SOAJ pen, INJECT 300MG UNDER THE SKIN EVERY 28 DAYS, Disp: 2mL, Rfl: 3 folic acid (FOLVITE) 1 MG tablet, Take 1 daily except the day you take methotrexate, Disp: 30 tablet, Rfl: 11 ketoconazole (NIZORAL) 2 % shampoo, Apply to wet hair, leave on for 3 minutes, then rinse; three times weekly. 30 days supply, Disp: 120 mL, Rfl: 11 melatonin 3 MG tablet, TAKE 1 TABLET BY MOUTH AT BEDTIME, Disp: 90 tablet, Rfl: 11 naproxen (Naprosyn) 500 MG tablet, Take 1 (one) tablet by mouth 2 times daily, Disp: 120 tablet, Rfl: 1 olanzapine (ZYPREXA) 10 MG tablet, Take 1 (one) tablet by mouth once daily, Disp: , Rfl: vitamin D3 (Cholecalciferol) 25 MCG (1000 UNITS) tablet, Take 1 (one) tablet by mouth once daily, Disp: , Rfl: Adverse Drug Reactions: Allergies Allergen Reactions Food Headache Spaghetti sauce and mozzarella cheese Past Medical History: Past Medical History: Diagnosis Date Autism Bipolar 1 disorder ([facility]-HCC) Migraines Psoriasis Vitamin D deficiency Past Surgical History: No past surgical history on file. Immunization History: Immunization History Administered Date(s) Administered Polleverywhere primary monovalent 12+ yr 0.3mL Purple cap 09/22/2020, 10/13/2020 DTP 03/08/1997, 04/23/1997, 07/26/1997, 04/06/1998 DTaP VACCINE IM (6wk-6yrs) 10/20/2002 FLU VACCINE QUAD IIV4 SPLIT PF IM 05/30/2015, 03/26/2018, 03/18/2020 FLU VACCINE QUAD RIV4 PF IM 04/03/2021, 06/06/2022 HEP B VACCINE, PED/ADOL 1996, 02/03/1997, 07/26/1997 Human Papilloma Virus Quadrivalent Vaccine 12/01/2009, 03/14/2010, 07/14/2010 MENINGOCOCCAL CONJUGATE (MCV4P) 12/21/2013 MENINGOCOCCAL, HISTORIC VACCINE 12/01/2009 MMR 01/04/1998, 10/20/2002 PNEUMOCOCCAL PCV20 CONJ VAC IM 02/04/2023 POLIO IPV 03/08/1997, 04/23/1997, 07/26/1997, 10/20/2002 TDAP (7yrs+) 04/03/2021 VARICELLA 12/01/2009, 03/14/2010 Social History: Social History Socioeconomic History Marital status: Single Tobacco Use Smoking status: Never Smokeless tobacco: Never Substance and Sexual Activity Alcohol use: No Drug use: No Family History: Family History Problem Relation Name Age of Onset Bipolar Disorder Father Diabetes - Type 2 Father Psoriasis Father weekly malcolm Bipolar Disorder Sister Diabetes - Type 2 Sister Patient Care Team: Shirin CHACON III, MD Patient Care Team: Richard Chacon III, MD as PCP - General (Internal Medicine) Christa Velez APRN-CNP as Psychiatrist (Nurse Practitioner) Morgan Randhawa MD as Resident - PCP (Internal Medicine) Pineda Randhawa MD as Resident (Rheumatology) Will Naqvi MD as Oil [employer] And Pipe Tester (Rheumatology) Pineda Randhawa MD as Resident (Rheumatology) Estee Peck MD (Dermatology) Objective Physical Exam BP 144/90 (BP SITE: RIGHT ARM, BP POSITION: SITTING, BP Cuff Size: L) Pulse 109 Temp 98.2 ??F (36.8 ??C) (Skin) Ht 1.727 m (5' 7.99 ) Wt 116.1 kg (256 lb) SpO2 97% BMI 38.93 kg/m?? GENERAL: NAD HEENT/NECK: No oropharyngeal lesions. CHEST/LUNGS: Normal work of breathing. CARDIOVASCULAR: Regular S1/S2, No ALEC. ABDOMEN: S/ND/NT. SKIN/NAILS: faint healing lesions of psoriasis on R leg PSYCH: Alert, appropriately interactive. NEURO: Sensation intact to soft touch. Normal muscle bulk and strength in trunk and limbs. MSK: No active synovitis, dactylitis, or enthesitis. Labs: Reviewed, including those as noted below No results found for this or any previous visit (from the past 2352 hour(s)). Other Studies: X-rays 07/2021: Left shoulder: The osseous structures are intact without acute fracture. The glenohumeral and acromioclavicular joints are in anatomic alignment. Bone density and texture are normal. Left wrist: The osseous structures are intact and well aligned without acute fracture or dislocation. The joint spaces are preserved. No soft tissue swelling is present. Left hand: The osseous structures are intact and well aligned without acute fracture or dislocation. The joint spaces are preserved. No soft tissue swelling is present. Right shoulder: The osseous structures are intact without acute fracture. The glenohumeral and acromioclavicular joints are in anatomic alignment. Bone density and texture are normal. Right wrist: The osseous structures are intact and well aligned without acute fracture or dislocation. The joint spaces are preserved. No soft tissue swelling is present. Right hand: The osseous structures are intact and well aligned without acute fracture or dislocation. The joint spaces are preserved. No soft tissue swelling is present. EXAMINATION: XR SI JOINTS 3VW OR MORE 07/2021: There is no erosion, sclerosis, widening, narrowing, or ankylosis of either sacroiliac joint. There is no fracture. The hip joint spaces are normal. IMPRESSION: No acute fracture identified. Assessment & Recommendations #. Psoriasis # history of PsA: Onset:2020. Phenotype: Polyarthralgia involving knees, ankles and hands. No signs of active synovitis , dactylitis or enthesitis on exam today. Skin lesions improving X-rays without any erosive disease. On Cosentyx 300 mg SQ every month (since September 2001) Naproxen 500 mg bid #. Drug Toxicity Monitoring (naproxen): CBC, CMP monitoring #. Long-Term Immunosuppression due to Drug Therapy (Cosentyx): HBV, HCV, TB quant. Negative HBV (2021), HCV (2021), TB Quant (2023) Immunizations per PCP: for all patients on immunosuppressive therapy with Cosentyx I recommend annual influenza vaccine, COVID19 vaccine, Prevnar, Pneumovax, Shingrix. Avoid live vaccines. Patient advised to contact clinic in case of any infections or antibiotic use. Recommendations: - Continue Cosentyx 300 mg SQ every 28 days - Naproxen 500 mg bid - Updating X rays (ordered) - CBC, CMP for monitoring been on Naproxen every 6 months #. Follow-up: In 6 months . This patient was seen and staffed with attending Dr. Naqvi. Pineda Randhawa MD Rheumatology Fellow [facility] Encounter orders: No orders of the defined types were placed in this encounter. EY STEEPER Associated attestation - Will Naqvi MD - 07/26/2023 12:09 PM BARLEY STEEPER Rheumatology Attending Attestation: Date of Service: 07/24/2023 I have seen and examined the patient with the fellow and I agree with the findings and plan of careas documented by the fellow. Encounter Diagnoses: 1. Psoriatic arthritis ([facility]) 2. 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[facility]) 3. Psoriasis No signs of active disease on exam. Continue Cosentyx every 4 weeks. Monitor for any infectious complications as he is on Cosentyx. Update labs and x rays as below. Additional contributions to medical decision making for today's encounter: - The patient has a - The patient is on drug therapy requiring intensive monitoring for toxicity. - I reviewed the patient's chart including review of clinical notes, laboratory results, and imaging results dating back to 12/2022. - Additional independent source(s) of information used for assessment included the patient's motherwho accompanied the patient during the visit. - I educated the patient regarding risks and benefits of the management plan, their medical problems, and contingency plans for worsening symptoms. Will Naqvi MD Division of Rheumatology Department of Internal Medicine [facility] Encounter Orders and Future Appointments: Orders Placed This Encounter XR HAND LEFT 3VW OR MORE XR HAND RIGHT 3VW OR MORE XR FOOT RIGHT 3VW OR MORE XR FOOT LEFT 3VW OR MORE XR WRIST LEFT 2VW XR WRIST RIGHT 2VW XR SI JOINTS 3VW OR MORE CBC WITH DIFFERENTIAL COMPREHENSIVE METABOLIC PANEL C-REACTIVE PROTEIN ERYTHROCYTE SEDIMENTATION RATE Future Appointments Date Time Provider Department Center 02/10/2024 10:00 AM Richard Chacon III, MD [id number] documented in this encounter Plan of Treatment Upcoming Encounters Date Type Department Care Team (Late st Contact Info) Description 10/21/2024 1:30 PM CDT Office Visit [facility] - Rheumatology [address] [place] [phone] Paulino Youngblood MD [address] [place] [address] [place] [phone] 11/30/2024 3:00 PM CDT Office Visit [facility] - ENT [address] [place] [phone] Froilan Monae MD [address] [place] [address] DEPT OF OTOLARYNGOLOGY [place], [place] [phone] 02/15/2025 10:00 AM CDT Office Visit [facility] - Internal Med [address] [place] [phone] Richard Chacon III, MD [address] [place] [address] [address] [place] [phone] documented as of this encounter Results * ERYTHROCYTE SEDIMENTATION RATE (11/22/2023 9:49 AM CDT) [facility] Erythrocyte Sedimentation Rate Westergren 6 0 - 15 MM/HR 11/22/2023 10:16 AM CDT [facility] Blood BLOOD SPECIMEN / Unknown Lab Venipuncture / Unknown 11/22/2023 9:49 AM CDT 11/22/2023 10:01 AM CDT Will Naqvi MD LAB - HEMATOLOGY ORD ERABLES [facility] [address] [place] [address], [facility] [phone] * (ABNORMAL) C-REACTIVE PROTEIN (11/22/2023 9:49 AM CDT) [facility] C-Reactive Protein 0.7(H) <=0.5 mg/dL 11/22/2023 10:29 AM [facility] Blood BLOOD SPECIMEN / Unknown Lab Venipuncture / Unknown 11/22/2023 9:49 AM CDT 11/22/2023 10:01 AM T Will Naqvi MD LAB - CHEMISTRY ALEENA Toney Organization Address [facility] Co de Phone Number [facility] [address] [place] [address] [[email or web address]] [phone] * (ABNORMAL) COMPREHENSIVE METABOLIC PANEL (11/22/2023 9:49 AM [facility]) BUN 11 7 - 26 mg/dL 11/22/2023 10:29 AM [facility] Creatinine 1.10 0.71 - 1.16 mg/dL 11/22/2023 10:29 AM [facility] Sodium 138 136 - 145 mmol/L 11/22/2023 10:29 AM [facility] Potassium 3.9 3.5 - 4.5 mmol/L 11/22/2023 10:29 AM [facility] Chloride 109(H) 98 - 107 mmol/L 11/22/2023 10:29 AM [facility] CO2 22 22 - 29 mmol/L 11/22/2023 10:29 AM [facility] Glucose 172(H) 70 - 115 mg/dL 11/22/2023 10:29 AM [facility] Calcium 9.4 8.4 - 10.2 mg/dL 11/22/2023 10:29 AM [facility] Protein Total 6.6 6.0 - 8.3 g/dL 11/22/2023 10:29 AM [facility] Albumin 3.8 3.4 - 5.0 g/dL 11/22/2023 10:29 AM [facility] Bilirubin Total 0.3 0.2 - 1.2 mg/dL 11/22/2023 10:29 AM [facility] Alkaline Phosphatase 121 40 - 150 U/L 11/22/2023 10:29 AM [facility] ALT 49 5 - 55 U/L 11/22/2023 10:29 AM [facility] AST 17 5 - 34 U/L 11/22/2023 10:29 AM [facility] Anion Gap 7 6 - 16 11/22/2023 10:29 AM [facility] BUN/Creatinine Ratio 10 7 - 23 11/22/2023 10:29 AM [facility] Osmolality Calculated 289 275 - 295 mOsm/kg 11/22/2023 10:29 AM [facility] Albumin/Globulin Ratio 1.4 1.1 - 2.3 11/22/2023 10:29 AM [facility] eGFR by CKD-EPI >90 >=90 mL/min/1.7 3 m2 11/22/2023 10:29 AM [facility] Blood BLOOD SPECIMEN / Unknown Lab Venipuncture / Unknown 11/22/2023 9:49 AM T 11/22/2023 10:01 AM [facility] Will Naqvi MD LAB - CHEMISTRY ORDE [facility] Organization Address City/State/ZIP Co de Phone Number [facility] [address] [place] [address] [[email or web address]] [phone] * (ABNORMAL) CBC WITH DIFFERENTIAL (11/22/2023 9:49 AM [facility]) WBC 5.9 4.0 - 10.7 x10E9/L 11/22/2023 10:09 AM [facility] RBC Count 4.46 4.30 - 5.80 x10E12/L 11/22/2023 10:09 AM [facility] Hemoglobin 12.7(L) 13.3 - 17.5 g/dL 11/22/2023 10:09 AM [facility] Hematocrit 37.3(L) 38.7 - 51.1 % 11/22/2023 10:09 AM [facility] MCV 83.6 80.0 - 98.0 fL 11/22/2023 10:09 AM [facility] MCH 28.5 26.7 - 33.6 pg 11/22/2023 10:09 AM [facility] MCHC 34.0 31.7 - 36.3 g/dL 11/22/2023 10:09 AM [facility] RDW-CV 13.3 11.3 - 14.8 % 11/22/2023 10:09 AM [facility] Platelet Count 195 150 - 420 x10E9/L 11/22/2023 10:09 AM [facility] MPV 9.7 7.8 - 11.4 fL 11/22/2023 10:09 AM [facility] Neutrophil % 71.2 41.0 - 74.0 % 11/22/2023 10:09 AM [facility] Lymphocyte % 21.5 17.0 - 47.0 % 11/22/2023 10:09 AM [facility] Monocyte % 3.8 3.0 - 11.0 % 11/22/2023 10:09 AM [facility] Eosinophil % 1.9 0.0 - 7.0 % 11/22/2023 10:09 AM [facility] Basophil % 0.7 0.0 - 1.6 % 11/22/2023 10:09 AM [facility] Immature Granulocytes % 0.9 0.0 - 1.0 % 11/22/2023 10:09 AM [facility] Neutrophil Absolute 4.18 1.60 - 7.50 x10E9/L 11/22/2023 10:09 AM [facility] Lymphocyte Absolute 1.26 1.00 - 4.40 x10E9/L 11/22/2023 10:09 AM [facility] Monocyte Absolute 0.22 0.15 - 1.00 x10E9/L 11/22/2023 10:09 AM [facility] Eosinophil Absolute 0.11 0.00 - 0.60 x10E9/L 11/22/2023 10:09 AM [facility] Basophil Absolute 0.04 0.00 - 0.13 x10E9/L 11/22/2023 10:09 AM [facility] Blood BLOOD SPECIMEN / Unknown Lab Venipuncture / Unknown 11/22/2023 9:49 AM CDT 11/22/2023 10:01 AM CDT Will Naqvi MD LAB - HEMATOLOGY ORD ERABLES [facility] [address] [place] [address], [facility] [phone] * XR SI JOINTS 3VW OR MORE (10/17/2023 1:57 PM CDT) Anatomical Region Laterality Modality Pelvis, Lower Extremity [facility] Imaging 10/17/2023 2:07 PM CDT Impressions 10/17/2023 9:28 PM CDT IMPRESSION: No significant arthritis in bilateral hands, wrists, feet and sacroiliac joints. Report dictated by Efrain Barnes MD (resident care provider). I, Ko Romano MD have personally reviewed [...] DATE/TIME OF EXAM: ??10/17/2023 1:57 PM, LOCATION ??[facility] INDICATION: L40.50: Psoriatic arthritis ([facility]) D84.821: 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[facility]) Z79.899: 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[facility]) L40.9: Psoriasis ADDITIONAL CLINICAL INFORMATION: [...] HAND RIGHT 3VW OR MORE, XR HAND [id number] OR MORE, XR FOOT LEFT 3VW OR MORE, DATE/TIME OF EXAM: 10/17/2023 1:57PM, LOCATION [facility] INDICATION: L40.50: Psoriatic arthritis ([facility]) D84.821: 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[facility]) Z79.899: 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[facility]) L40.9: Psoriasis ADDITIONAL CLINICAL INFORMATION: [...] joints. Report dictated by Efrain Barnes MD (resident care provider). Ko Pascual MD have personally reviewed and [...] joints. Report dictated by Efrain Barnes MD (resident care provider). Ko Pascual MD have personally reviewed and [...] DATE/TIME OF EXAM: ??10/17/2023 1:57 PM, LOCATION ??[facility] INDICATION: L40.50: Psoriatic arthritis ([facility]) D84.821: 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[facility]) Z79.899: 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[facility]) L40.9: Psoriasis ADDITIONAL CLINICAL INFORMATION: [...] HAND RIGHT 3VW OR MORE, XR HAND [id number] OR MORE, XR FOOT LEFT 3VW OR MORE, DATE/TIME OF EXAM: 10/17/2023 1:57PM, LOCATION [facility] INDICATION: L40.50: Psoriatic arthritis ([facility]) D84.821: 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[facility]) Z79.899: 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[facility]) L40.9: Psoriasis ADDITIONAL CLINICAL INFORMATION: [...] joints. Report dictated by Efrain Barnes MD (resident care provider). I, Ko Romano MD have personally reviewed [...] joints. Report dictated by Efrain Barnes MD (resident care provider). I, Ko Romano MD have personally reviewed [...] DATE/TIME OF EXAM: ??10/17/2023 1:57 PM, LOCATION ??[facility] INDICATION: L40.50: Psoriatic arthritis (HCC) D84.821: Immunosuppression [...] HAND RIGHT 3VW OR MORE, XR HAND [id number] OR MORE, XR FOOT LEFT 3VW OR MORE, DATE/TIME OF EXAM: 10/17/2023 1:57PM, LOCATION [facility] INDICATION: L40.50: Psoriatic arthritis (HCC) D84.821: Immunosuppression [...] joints. Report dictated by Efrain Barnes MD (resident care provider). Ko Pascual MD have personally reviewed and [...] joints. Report dictated by Efrain Barnes MD (resident care provider). Ko Pascual MD have personally reviewed and [...] DATE/TIME OF EXAM: ??10/17/2023 1:57 PM, LOCATION ??[facility] INDICATION: L40.50: Psoriatic arthritis ([facility]) D84.821: 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[facility]) Z79.899: 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[facility]) L40.9: Psoriasis ADDITIONAL CLINICAL INFORMATION: [...] HAND RIGHT 3VW OR MORE, XR HAND [id number] OR MORE, XR FOOT LEFT 3VW OR MORE, DATE/TIME OF EXAM: 10/17/2023 1:57PM, LOCATION [facility] INDICATION: L40.50: Psoriatic arthritis ([facility]) D84.821: 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[facility]) Z79.899: 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[facility]) L40.9: Psoriasis ADDITIONAL CLINICAL INFORMATION: [...] joints. Report dictated by Efrain Barnes MD (resident care provider). Ko Pascual MD have personally reviewed and [...] joints. Report dictated by Efrain Barnes MD (resident care provider). Ko Pascual MD have personally reviewed and [...] DATE/TIME OF EXAM: ??10/17/2023 1:57 PM, LOCATION ??[facility] INDICATION: L40.50: Psoriatic arthritis ([facility]) D84.821: 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[facility]) Z79.899: 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[facility]) L40.9: Psoriasis ADDITIONAL CLINICAL INFORMATION: [...] HAND RIGHT 3VW OR MORE, XR HAND [id number] OR MORE, XR FOOT LEFT 3VW OR MORE, DATE/TIME OF EXAM: 10/17/2023 1:57PM, LOCATION [facility] INDICATION: L40.50: Psoriatic arthritis ([facility]) D84.821: 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[facility]) Z79.899: 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[facility]) L40.9: Psoriasis ADDITIONAL CLINICAL INFORMATION: [...] joints. Report dictated by Efrain Barnes MD (resident care provider). I, Ko Romano MD have personally reviewed [...] joints. Report dictated by Efrain Barnes MD (resident care provider). I, Ko Romano MD have personally reviewed [...] DATE/TIME OF EXAM: ??10/17/2023 1:57 PM, LOCATION ??[facility] INDICATION: L40.50: Psoriatic arthritis (HCC) D84.821: 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HCC) Z79.899: 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[facility]) L40.9: Psoriasis ADDITIONAL CLINICAL INFORMATION: [...] HAND RIGHT 3VW OR MORE, XR HAND [id number] OR MORE, XR FOOT LEFT 3VW OR MORE, DATE/TIME OF EXAM: 10/17/2023 1:57PM, LOCATION [facility] INDICATION: L40.50: Psoriatic arthritis (HCC) D84.821: Immunosuppression [...] joints. Report dictated by Efrain Barnes MD (resident care provider). Ko Pascual MD have personally reviewed and [...] joints. Report dictated by Efrain Barnes MD (resident care provider). Ko Pascual MD have personally reviewed and [...] DATE/TIME OF EXAM: ??10/17/2023 1:57 PM, LOCATION ??[facility] INDICATION: L40.50: Psoriatic arthritis ([facility]) D84.821: 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[facility]) Z79.899: 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[facility]) L40.9: Psoriasis ADDITIONAL CLINICAL INFORMATION: [...] HAND RIGHT 3VW OR MORE, XR HAND [id number] OR MORE, XR FOOT LEFT 3VW OR MORE, DATE/TIME OF EXAM: 10/17/2023 1:57PM, LOCATION [facility] INDICATION: L40.50: Psoriatic arthritis ([facility]) D84.821: 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[facility]) Z79.899: 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[facility]) L40.9: Psoriasis ADDITIONAL CLINICAL INFORMATION: [...] joints. Report dictated by Efrain Barnes MD (resident care provider). I, Ko Romano MD have personally reviewed and interpreted this examination/study. > Interpreting Provider: Ko Romano MD on 10/17/2023 9:28 PM Will Naqvi MD DIAGNOSTIC IMAGING O RDERABLES documented in this encounter Visit Diagnoses Diagnosis Psoriatic arthritis (HCC)- Primary Psoriatic arthropathy 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HCC) Psoriasis Other psoriasis Psoriatic arthritis (HCC) Psoriatic arthropathy 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HCC) Psoriasis Other psoriasis documented in this encounter Care Teams Patient Safety Coordinator Relationship Specialty Start Date End Date Richard Chacon III, MD [address] [phone] PCP - General Internal Medicine 01/29/22 Christa Velez APRN-GUIDE SETTER [address] [place] [phone] Psychiatrist Nurse Practitioner 08/07/21 Morgan Randhawa MD [address] [facility] [place] [place] [phone] Resident - PCP Internal Medicine 01/29/22 Pineda Randhawa MD [address] [facility] [place] [phone] Resident Rheumatology 12/24/22 Will Naqiv MD [address] [facility] 2L [place] [phone] Oil Gas [employer] Pipe Tester Rheumatology 12/24/22 Pineda Randhawa MD [address] [place] [address] Resident Rheumatology 02/04/23 Estee Peck MD [address] [facility] 3L [place] [address] Dermatology 02/04/23 documented as of this encounter
--- OUTSIDE RECORDS SUMMARY | 2024-07-15 18:37 | XMS_ITS | Encounter Summary ---
Author Organization [facility] Address [address] [facility] [place] [address] Care Team Providers Care Orthodontist Small Business Owner Name Role Phone Christa Velez APRN-TRIM ATTACHER Unavailable Oswaldo BOSCH MD, Francis G Primary Care Provider [phone] Morgan Randhawa MD Unavailable Pineda Randhawa MD Unavailable Will Naqvi MD Unavailable Pineda Randhawa MD Unavailable Estee Peck MD Unavailable Oswaldo BOSCH MD, Francis G Unavailable Reason for Visit * Reason Comments Follow-up Encounter Details Date Type Department Care Team (Latest Contact Info) Description 01/13/2024 2:45 PM CDT Office Visit [facility] - ENT [address] [place] [phone] Froilan Monae MD [address] [place] [address] [place] [address] Conductive hearing loss, bilateral (Primary Dx); Mixed conductive and sensorineural hearing loss of both ears; Dysfunction of both eustachian tubes; Chronic diffuse otitis externa of both ears; Bilateral impacted cerumen Social History Tobacco Use Types Packs/Day Years [...] Sign Reading Time Taken Comments Blood Pressure 131/84 01/13/2024 2:52 PM CDT Pulse 107 01/13/2024 2:52 PM CDT Temperature 36.2 ??C (97.2 ??F) 01/13/2024 2:52 PM CD T Respiratory Rate - - Oxygen Saturation 95% 01/13/2024 2:52 PM CDT Inhaled Oxygen Concentration - - Weight 124.5 kg (274 lb 6 oz) 01/13/2024 2:52 PM CDT Height 170.2 cm (5' 7 ) 01/13/2024 2:52 PM CDT Body Mass Index 42.97 01/13/2024 2:52 PM CDT documented in this encounter Progress Notes * Froilan Monae MD - 01/13/2024 3:16 PM CDT History of Present Illness: 28 year old on disability with a h/o migraines, bipolar AU ETD, s/p PET at least once around age 6,now with AU TM perf, uses hearing aids AU Notes AU ear fullness. Cerumen imapctions cleaned. OE treated. Using hearing aids and wants to continue on with that , f/u 6 m He has had mild bother from his hearing loss and thinks it may have gotten worse over the last few months. No drainage from the ears. No head imaging in [facility] Epic No recent relevant records in media tab No other inciting exacerbating or alleviating factors. Review of Systems: ROS: Negative times 13 (Including General, Psych, Neuro, HEENT, Resp, CV, GI, , Musculoskeletal, Derm,Heme/Lymph), except as noted in EPIC and reviewed by me. Pertinent issues include: No notes on file Past Medical History Past Medical History: Diagnosis Date Autism (HCC) Bipolar 1 disorder (HCC) Migraines Psoriasis Vitamin D deficiency Medications Current Outpatient Medications Medication Sig Dispense Refill buPROPion SR 12hr (WELLBUTRIN SR) 200 MG tablet Take 1 (one) tablet by mouth 2 times daily calcipotriene (DOVONEX) 0.005 % cream Apply to affected area 2 times daily 60 g 3 citalopram (CELEXA) 40 MG tablet TAKE 1 TABLET BY MOUTH EVERY DAY IN THE MORNING clobetasol (TEMOVATE) 0.05 % ointment APPLY TOPICALLY TO AFFECTED AREA(S) OF KNEES AND ELBOWS TWICEDAILY 60 g 3 folic acid (FOLVITE) 1 MG tablet Take 1 daily except the day you take methotrexate 30 tablet 11 ketoconazole (NIZORAL) 2 % shampoo Apply to wet hair, leave on for 3 minutes, then rinse; three times weekly. 30 days supply 120 mL 11 melatonin 3 MG tablet TAKE 1 TABLET BY MOUTH AT BEDTIME 90 tablet 11 naproxen (Naprosyn) 500 MG tablet Take 1 (one) tablet by mouth 2 times daily 120 tablet 1 olanzapine (ZYPREXA) 10 MG tablet Take 1 (one) tablet by mouth once daily secukinumab (Cosentyx Sensoready, 300 MG,) 150 MG/ML SOAJ pen Inject 300 (three hundred) mg subcutaneously every 28 days 2 mL 3 topiramate (Topamax) 25 MG tablet Take 1 (one) tablet by mouth 2 times daily vitamin D3 (Cholecalciferol) 25 MCG (1000 UNITS) tablet Take 1 (one) tablet by mouth once daily No current facility-administered medications for this visit. Allergies Food Social History Social History Socioeconomic History Marital status: Single Tobacco Use Smoking status: Never Smokeless tobacco: Never Substance and Sexual Activity Alcohol use: No Drug use: No Family History Family History Problem Relation Name Age of Onset Bipolar Disorder Father Diabetes - Type 2 Father Psoriasis Father weekly malcolm Bipolar Disorder Sister Diabetes - Type 2 Sister Vitals BP 131/84 (BP Location: Left arm, Patient Position: Sitting, BP Cuff Size: Large adult long) Pulse 107 Temp 97.2 ??F (36.2 ??C) (Skin) Ht 1.702 m (5' 7 ) Wt 124.5 kg (274 lb 6 oz) SpO2 95% Body mass index is 42.97 kg/m??. Physical Exam: Constitutional: Alert, No acute Distress; Well developed/well nourished Neuro:cranial nerves III-XII grossly intact CV/Pulm: Normal respirations and peripheral pulses. Eyes: PERRL, EOMI Face/Skin: normal appearance, no lesions/masses Nose: patent bilaterally, Turbinates intact, Mucosal membranes intact Mouth and oropharynx: symmetric tongue mobility, no lesions/masses/ulcers Neck: supple, no lymphadenopathy, no masses Voice: strong MusculoSkeletal: moves all extremities well Right ear: There is an anterior inferior approximately 30% perforation with a large anterior bony overhang. There is buildup of debris and low-grade otitis externa which was treated with debridement and placement of boric acid powder. middle ear space aerated. No mastoid tenderness. Left ear: There is an anterior approximately 50 or 60% perforation with a large anterior canal bony overhang.There is buildup of debris and low-grade otitis externa which was treated with debridement and placement of boric acid powder. Middle ear space aerated. No mastoid tenderness. Assessment and Plan: 1. Right stable eustachian tube dysfunction with tympanic membrane perforation and associated mixedhearing loss. 2. Left stable eustachian tube dysfunction with tympanic membrane perforation associated mixed hearing loss. 3. AU OE due to combination of hearing aid usage and chronic tympanic membrane perforations with excessive buildup of debris. This was treated with debridement and placement of boric acid powder We discussed the options for management which include watchful waiting, hearing aids, or surgical repair. He would like to try the hearing aids and information regarding [facility] was provided. If he chooses to do surgical repair at some point, eustachian tube balloon plasty could also be considered. He might need a postauricular approach with extensive bony canalplasty, particularly on theleft. F/U 1 year or sooner if issues Froilan Monae MD Professor of Otology, Neurotology and Skull Base Surgery Department of Otolaryngology documented in this encounter Procedure Notes * Froilan Monae MD - 01/13/2024 3:26 PM CDTAssociated Order(s): PROC CERUMEN REMOVAL Procedure(s): VA REMOVE CERUMEN IMPACTED W INSTR ARMIDA Pre-Procedure Diagnose(s): Bilateral impacted cerumen Post-Procedure Diagnose(s): Bilateral impacted cerumen Procedure: Binocular Microscopic Removal of Impacted Cerumen AU Indications: Cerumen impaction obscuring the tympanic membrane. Findings: See main note. Procedure Note: After verbal consent was obtained, the binocular operative microscope was brought into position. An otologic speculum was inserted into the cartilaginous external auditory canal. Cerumen was removed using a combination of cerumen loops, suction, and alligator forceps. There was no bleeding Froilan Monae MD documented in this encounter Plan of Treatment Upcoming Encounters Date Type Department Care Team (Late st Contact Info) Description 10/21/2024 1:30 PM CDT Office Visit [facility] - Rheumatology [address] [place] [phone] Paulino Youngblood MD [address] [place] [address] [place] [phone] 11/30/2024 3:00 PM CDT Office Visit [facility] - ENT [address] [place] [phone] Froilan Monae MD [address] [place] [address] 2L [place] [address] 02/15/2025 10:00 AM CDT Office Visit [facility] - Internal Med [address] [place] [phone] Richard Chacon III, MD [address] [place] [address] 2[place] [address] documented as of this encounter Procedures Procedure Name Priority Date/Time Associated Diagnosis Comments VA REMOVE CERUMEN IMPACTED W INSTR ARMIDA Routine 01/13/2024 3:26 PM CDT Bilateral impacted cerumen documented in this encounter Results * VA REMOVE CERUMEN IMPACTED W INSTR ARMIDA (01/13/2024 3:26 PM CDT) Narrative Froilan Monae MD - 01/13/2024 3:26 PM CDT Froilan Monae MD ? 01/13/2024 ??3:26 PM Procedure: ??Binocular Microscopic Removal of Impacted Cerumen AU Indications: Cerumen impaction obscuring the tympanic membrane. ?? Findings: See main note. ?? Procedure Note: After verbal consent was obtained, the binocular operative microscope was brought into position. ??An otologic speculum was inserted into the cartilaginous external auditory canal. ??Cerumen was removed using a combination of cerumen loops, suction, and alligator forceps. ??There was no bleeding Froilan Monae MD Froilan Monae MD PROCEDURE/MINOR JAJA GICAL ORDERABLES documented in this encounter Visit Diagnoses Diagnosis Conductive hearing loss, bilateral- Primary Mixed conductive and sensorineural hearing loss of both ears Mixed hearing loss, bilateral Dysfunction of both eustachian tubes Dysfunction of Eustachian tube Chronic diffuse otitis externa of both ears Bilateral impacted cerumen Impacted cerumen documented in this encounter Care Teams Orthodontist Small Business Owner Relationship Specialty Start Date End Date Richard Chacon III, MD [address] 2L [place] [phone] PCP - General Internal Medicine 01/29/22 Richard Chacon III, MD [address] 2[address] [place] [phone] PCP - [facility] NIYAH SALCIDO P4P 11/23/23 Christa Velez APRN-TRIM ATTACHER [address] [place] [address] Psychiatrist Nurse Practitioner 08/07/21 Morgan Randhawa MD [address] [facility] [place] [phone] Resident - PCP Internal Medicine 01/29/22 Pineda Randhawa MD [address] [facility] [place] [phone] Resident Rheumatology 12/24/22 Will Naqvi MD [address] [facility] 2L [place] [phone] Ferryboat Operator Rheumatology 12/24/22 Pineda Randhawa MD [address] [facility] [address] [place] [address] Resident Rheumatology 02/04/23 Estee Peck MD [address] [facility] 3L [place] [address] Dermatology 02/04/23 documented as of this encounter
--- OUTSIDE RECORDS SUMMARY | 2024-07-15 18:37 | XMS_ITS | Encounter Summary ---
Author Organization [facility] Address [address] [facility] [place] [address] Care Team Providers Care Manager Club Name Role Phone Christa Velez HARVEY-SALES FLOOR ASSOCIATE Unavailable [phone] Oswaldo BOSCH MD, Richard Sanchez Primary Care Provider [phone] Morgan Randhawa MD Unavailable Pineda Randhawa MD Unavailable Will Naqvi MD Unavailable [phone] Pineda Randhawa MD Unavailable Estee Peck MD Unavailable [phone] Encounter Details Date Type Department Care Team (Latest Contact Info) Description 11/22/2023 Travel Social History Tobacco Use Types Packs/Day Years [...] Description 10/21/2024 1:30 PM CDT Office Visit [facility] - Rheumatology [address] [place] [address] [place] [phone] Paulino Youngblood MD [address] [place] [address] [place] [phone] 11/30/2024 3:00 PM CDT Office Visit [facility] - ENT [address] [place] [phone] Froilan Monae MD [address] [place] [address] 2L [place] [address] 02/15/2025 10:00 AM CDT Office Visit [facility] - Internal Med [address] [place] [phone] Richard Chacon III, MD [address] [place] [address] 2[place] [address] documented as of this encounter Visit Diagnoses Not on filedocumented in this encounter Care Teams Manager Club Relationship Specialty Start Date End Date Richard Chacon III, MD [address] [place] [address] 2[place] [address] PCP - General Internal Medicine 01/29/22 Christa Velez APRN-SALES FLOOR ASSOCIATE [address] [phone] Psychiatrist Nurse Practitioner 08/07/21 Morgan Randhawa MD [address] [place] [address] [place] [phone] Resident - PCP Internal Medicine 01/29/22 Pineda Randhawa MD [address] [place] [address] [place] [phone] Resident Rheumatology 12/24/22 Will Naqvi MD [address] [facility] [address]L [place] [address] Community Relations Director Rheumatology 12/24/22 Pineda Randhawa MD [address] [facility] [address] [place] [phone] Resident Rheumatology 02/04/23 Estee Peck MD [address] [facility] 3L [place] [address] Dermatology 02/04/23 documented as of this encounter
--- OUTSIDE RECORDS SUMMARY | 2024-07-15 18:37 | XMS_ITS | Encounter Summary ---
Author Organization [facility] Address [address] [facility] [place] [address] Care Team Providers Care Sizer Machine Name Role Phone Christa Velez APRN-PROCESSING TECH Unavailable [phone] Oswaldo BOSCH MD, Francis G Primary Care Provider [phone] Morgan Randhawa MD Unavailable Pineda Randhawa MD Unavailable Will Naqvi MD Unavailable Pineda Randhawa MD Unavailable Estee Peck MD Unavailable Oswaldo BOSCH MD, Francis G Unavailable Reason for Visit * Reason Onset Date Comments MEDICATION REFILL 04/01/2024 Encounter Details Date Type Department Care Team (Late st Contact Info) Description 04/01/2024 Refill [facility] - Rheumatology [address] [place] [address], [place] [address] Paulino Youngblood MD [address] [place] [address] [place] [address] MEDICATION REFILL Social History Tobacco [...] encounter Miscellaneous Notes * Telephone Encounter - Florence Guzmán RN - 04/01/2024 8:15 AM CDT Refill Request Manoj Horner UVALDO: 12/18/23 NOV due: NOV scheduled: 07/01/2024 LRF: 08/29/23 Qty Disp: 2 # of refills: 3 Allergies: Allergies Allergen Reactions Food Headache Spaghetti sauce and mozzarella cheese Pended Medication Order: Requested Prescriptions Pending Prescriptions Disp Refills secukinumab (Cosentyx Sensoready, 300 MG,) 150 MG/ML SOAJ pen 6 mL 3 Sig: Inject 300 (three hundred) mg subcutaneously every 28 days documented in this encounter Plan of Treatment Upcoming Encounters Date Type Department Care Team (Late st Contact Info) Description 10/21/2024 1:30 PM CDT Office Visit [facility] - Rheumatology [address] [place] [phone] Paulino Youngblood MD [address] [place] [address] [place] [phone] 11/30/2024 3:00 PM CDT Office Visit [facility] - ENT [address] [place] [phone] Froilan Monae MD [address] [place] [place] [address] [place] [address] 02/15/2025 10:00 AM CDT Office Visit [facility] - Internal Med [address] [place] [phone] Richard Chacon III, MD [address] 2[address] [place] [phone] documented as of this encounter Visit Diagnoses Diagnosis Psoriatic arthritis (HCC) Psoriatic arthropathy documented in this encounter Care Teams Sizer Machine Relationship Specialty Start Date End Date Richard Chacon III, MD [address] 2[address] [place] [phone] PCP - General Internal Medicine 01/29/22 Richard Chacon III, MD [address] 2[address] [place] [phone] PCP - [facility] NIYAH SALCIDO P4P 11/23/23 Christa Velez APRN-PROCESSING TECH [address] [place] [phone] Psychiatrist Nurse Practitioner 08/07/21 Morgan Randhawa MD [address] [place] [place] [phone] Resident - PCP Internal Medicine 01/29/22 Pineda Randhawa MD [address] [place] [phone] Resident Rheumatology 12/24/22 Will Naqvi MD [address] 2L [place] [address] Death Surveys Coder Rheumatology 12/24/22 Pineda Randhawa MD [address] [place] [phone] Resident Rheumatology 02/04/23 Estee Peck MD [address] [facility] 3L [place] [address] Dermatology 02/04/23 documented as of this encounter
--- OUTSIDE RECORDS SUMMARY | 2024-07-15 18:37 | XMS_ITS | Encounter Summary ---
Author Organization [facility] Address [address] [facility] [place] [address] Care Team Providers Care Refrigeration Insulator Name Role Phone Christa Velez HARVEY-RELIGIOUS EDUCATOR Unavailable [phone] Oswaldo BOSCH MD, Richard Sanchez Primary Care Provider [phone] Morgan Randhawa MD Unavailable Pineda Randhawa MD Unavailable Will Naqvi MD Unavailable [phone] Pineda Randhawa MD Unavailable Estee Peck MD Unavailable [phone] Reason for Visit * Reason Comments Refill Request Encounter Details Date Type Department Care Team (Late st Contact Info) Description 04/11/2023 Refill [facility] - Rheumatology [facility], [place] [address] Pineda Randhawa MD [address] [facility] [address] [address] [place] [phone] Refill Request Social History Tobacco Use [...] Office Visit [facility] - Rheumatology [address] [place] [phone] Paulino Youngblood MD [address] [place] [address] [place] [phone] 11/30/2024 3:00 PM CDT Office Visit [facility] - ENT [address] [place] [phone] Froilan Monae MD [address] [place] [address] [place] [address] 02/15/2025 10:00 AM CDT Office Visit [facility] - Internal Med [address] [place] [phone] Richard Chacon III, MD [address] [place] [address] 2L [place] [address] documented as of this encounter Visit Diagnoses Not on filedocumented in this encounter Care Teams Refrigeration Insulator Relationship Specialty Start Date End Date Richard Chacon III, MD [address] [place] [address] 2L [place] [phone] PCP - General Internal Medicine 01/29/22 Christa Velez APRN-RELIGIOUS EDUCATOR [address] [place] [phone] Psychiatrist Nurse Practitioner 08/07/21 Morgan Randhawa MD [address] [place] [address] [place] [phone] Resident - PCP Internal Medicine 01/29/22 Pineda Randhawa MD [address] [facility] [place] [phone] Resident Rheumatology 12/24/22 Will Naqvi MD [address] [facility] 2L [place] [phone] [employer] Rheumatology 12/24/22 Pineda Randhawa MD [address] [facility] [address] [place] [phone] Resident Rheumatology 02/04/23 Estee Peck MD [address] [facility] 3L [place] [address] Dermatology 02/04/23 documented as of this encounter
--- OUTSIDE RECORDS SUMMARY | 2024-07-15 18:37 | XMS_ITS | Patient Health Summary ---
Author Organization [facility] Address [address] [place] [address] Care Team Providers Care Relay Record Clerk Name Role Phone Christa Velez APRN-EDUCATIONAL SPEECH LANGUAGE CLINICIAN Unavailable [phone] Oswaldo BOSCH MD, Francis G Primary Care Provider [phone] Morgan Randhawa MD Unavailable Pineda Randhawa MD Unavailable Will Naqvi MD Unavailable [phone] Pineda Randhawa MD Unavailable Estee Peck MD Unavailable Oswaldo BOSCH MD, Francis G Unavailable Note from [facility],non-owned Affiliates and Associated Physician Practices is amultiple site organization consisting of ambulatory clinics and hospital sitesin [place], [place], [place] and [place]. This disclosure is being madepursuant to the Care Everywhere program and may not contain all information available regarding this patient. Last updated 18.[facility] Allergies * Food(Headache) -Low Criticality Medications * Be aware that medications may not be up to date on this document. Alwaysverify current medications with the patient. * olanzapine (ZYPREXA) 10 MG tablet Take 1 (one) tablet by mouth once daily * buPROPion SR 12hr (WELLBUTRIN SR) 200 MG tablet(Started 03/06/2021) Take 1 (one) tablet by mouth 2 times daily * citalopram (CELEXA) 40 MG tablet(Started 03/08/2021) TAKE 1 TABLET BY MOUTH EVERY DAY IN THE MORNING * ketoconazole (NIZORAL) 2 % shampoo(Started 04/17/2021) Apply to wet hair, leave on for 3 minutes, then rinse; three times weekly. 30 days supply 11 refills by 04/17/2022 * folic acid (FOLVITE) 1 MG tablet(Started 07/07/2021) Take 1 daily except the day you take methotrexate 11 refills by 07/07/2022 * calcipotriene (DOVONEX) 0.005 % cream(Started 10/16/2021) Apply to affected area 2 times daily 3 refills by 10/16/2022 * clobetasol (TEMOVATE) 0.05 % ointment(Started 10/16/2021) APPLY TOPICALLY TO AFFECTED AREA(S) OF KNEES AND ELBOWS TWICE DAILY 3 refills by 10/16/2022 * vitamin D3 (Cholecalciferol) 25 MCG (1000 UNITS) tablet(Started 05/06/2022) Take 1 (one) tablet by mouth once daily * melatonin 3 MG tablet(Started 04/23/2023) TAKE 1 TABLET BY MOUTH AT BEDTIME 11 refills by 04/22/2024 * metFORMIN ER 24hr (Glucophage XR) 500 MG tablet(Started 02/12/2024) Take 1 (one) tablet by mouth every evening 3 refills by 02/11/2025 * secukinumab (Cosentyx Sensoready, 300 MG,) 150 MG/ML SOAJ pen(Started 04/01/2024) Inject 300 (three hundred) mg subcutaneously every 28 days 3 refills by 04/01/2025 * SUMAtriptan (Imitrex) 100 MG tablet(Started 02/18/2024) Take 1 (one) tablet by mouth as needed for Migraine * venlafaxine XR 24hr (Effexor XR) 37.5 MG capsule(Started 05/22/2024) Take 1 (one) capsule by mouth daily with breakfast * topiramate (Topamax) 100 MG tablet(Started 02/17/2024) Take 1 (one) tablet by mouth 2 times daily * naproxen (Naprosyn) 500 MG tablet(Started 06/08/2024) TAKE 1 TABLET BY MOUTH TWICE DAILY 1 refill by 06/08/2025 Active Problems Problem Noted Date Diagnosed Date Class 2 obesity with body ma ss index (BMI) of 37.0 to 37.9 in adult 01/29/2022 Psoriatic arthritis 01/29/2022 Immunizations * Covid Moderna primary monovalent 12+ yr 0.5mL(Given 07/24/2021) * Covid Pfizer primary monovalent 12+ yr 0.3mL Purple cap(Given 10/13/2020, 09/22/2020) * DTP(Given 04/06/1998, 07/26/1997, 04/23/1997, 03/08/1997) * DTaP VACCINE IM (6wk-6yrs)(Given 10/20/2002) * HEP B VACCINE, PED/ADOL(Given 07/26/1997, 02/03/1997, 1996) * Human Papilloma Virus Quadrivalent Vaccine(Given 07/14/2010, 03/14/2010, 12/01/2009) * INFLUENZA VACCINE, QUADR. (FLUZONE; FLULAVAL; FLUARIX; AFLURIA QUADRIVALENT; 6MO+), 0.5 ML (IIV4)(Given 03/18/2020, 03/26/2018, 05/30/2015) * MENINGOCOCCAL CONJUGATE (MCV4P)(Given 12/21/2013) * MENINGOCOCCAL VACCINE(Given 12/01/2009) * MMR(Given 10/20/2002, 01/04/1998) * PNEUMOCOCCAL PCV20 CONJ VAC IM(Given 02/04/2023) * POLIO IPV(Given 10/20/2002, 07/26/1997, 04/23/1997, 03/08/1997) * TDAP (7yrs+)(Given 04/03/2021) * VARICELLA(Given 03/14/2010, 12/01/2009) * iNFLUENZA VACCINE, RECOM-AN, QUADR. (FLUBLOCK QUADRIVALENT; 18Y+) (RIV4)(Given 06/06/2022, 04/03/2021) Social History Tobacco Use Types Packs/Day Years [...] on file Sexual Orientation Not on file Last Filed Vital Signs Vital Sign Reading Time Taken Comments Blood Pressure 113/78 06/01/2024 2:32 PM DYNAMITE RECLAIMER Pulse 98 06/01/2024 2:32 PM DYNAMITE RECLAIMER Temperature 37.1 ??C (98.7 ??F) 02/12/2024 1:37 PM CD T Respiratory Rate 18 03/19/2022 2:48 PM CDT Oxygen Saturation 96% 02/12/2024 1:37 PM CDT Inhaled Oxygen Concentration - - Weight 120.8 kg (266 lb 6.4 oz) 06/01/2024 2:32 PM DYNAMITE RECLAIMER Height 170.2 cm (5' 7 ) 06/01/2024 2:32 PM DYNAMITE RECLAIMER Body Mass Index 41.72 06/01/2024 2:32 PM DYNAMITE RECLAIMER Procedures * MD REMOVE CERUMEN IMPACTED W INSTR LEFT EAR(Performed 06/01/2024) Performed for Impacted cerumen of left ear * MD REMOVE CERUMEN IMPACTED W INSTR ARMIDA(Performed 01/13/2024) Performed for Bilateral impacted cerumen * ERYTHROCYTE SEDIMENTATION RATE(Performed 11/22/2023) Performed for Psoriatic arthritis ([facility]), 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[facility]), Psoriasis * C-REACTIVE PROTEIN(Performed 11/22/2023) Performed for Psoriatic arthritis ([facility]), 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[facility]), Psoriasis * COMPREHENSIVE METABOLIC PANEL(Performed 11/22/2023) Performed for Psoriatic arthritis ([facility]), 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[facility]), Psoriasis * CBC W AUTO DIFFERENTIAL(Performed 11/22/2023) Performed for Psoriatic arthritis ([facility]), 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[facility]), Psoriasis * QUANTIFERON-TB GOLD PLUS 4-TUBE(Performed 11/22/2023) Performed for Psoriatic arthritis ([facility]), Psoriasis, 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[facility]), Screening-pulmonary TB * XR SI JOINTS 3VW OR MORE(Performed 10/17/2023) Performed for Psoriatic arthritis ([facility]), 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[facility]), Psoriasis * XR WRIST RIGHT 2VW(Performed 10/17/2023) Performed for Psoriatic arthritis (HCC), 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HCC), Psoriasis * XR WRIST LEFT 2VW(Performed 10/17/2023) Performed for Psoriatic arthritis (HCC), 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HCC), Psoriasis * XR FOOT RIGHT 3VW OR MORE(Performed 10/17/2023) Performed for Psoriatic arthritis (HCC), 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HCC), Psoriasis * XR HAND RIGHT 3VW OR MORE(Performed 10/17/2023) Performed for Psoriatic arthritis (HCC), 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HCC), Psoriasis * XR HAND LEFT 3VW OR MORE(Performed 10/17/2023) Performed for Psoriatic arthritis (HCC), 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HCC), Psoriasis * XR FOOT LEFT 3VW OR MORE(Performed 10/17/2023) Performed for Psoriatic arthritis (HCC), 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HCC), Psoriasis * QUANTIFERON-TB GOLD PLUS 4-TUBE(Performed 07/24/2023) Performed for Psoriatic arthritis (HCC), Psoriasis, Screening-pulmonary TB * COMPREHENSIVE METABOLIC PANEL(Performed 07/24/2023) Performed for Psoriatic arthritis (HCC), Psoriasis * CBC W AUTO DIFFERENTIAL(Performed 07/24/2023) Performed for Psoriatic arthritis (HCC), Psoriasis * HIV-1 HIV-2 ANTIBODY + HIV P24 AG PANEL(Performed 07/24/2023) Performed for Routine general medical examination at health care facility * LIPID PROFILE(Performed 07/24/2023) Performed for Class 2 obesity with body mass index (BMI) of 37.0 to 37.9 in adult, unspecified obesity type, unspecified whether serious comorbidity present * HEMOGLOBIN A1C(Performed 07/24/2023) Performed for Class 2 obesity with body mass index (BMI) of 37.0 to 37.9 in adult, unspecified obesity type, unspecified whether serious comorbidity present * MD EAR MICROSCOPY EXAMINATION(Performed 03/21/2023) Performed for Excessive cerumen in both ear canals * AUDIOLOGY/TYMPANOMETRY ORDER(Performed 03/21/2023) * COMPREHENSIVE METABOLIC PANEL(Performed 06/06/2022) Performed for Psoriatic arthritis (HCC), Therapeutic drug monitoring * CBC W AUTO DIFFERENTIAL(Performed 06/06/2022) Performed for Psoriatic arthritis (HCC), Therapeutic drug monitoring * MD EAR MICROSCOPY EXAMINATION(Performed 03/19/2022) Performed for Dysfunction of both eustachian tubes * AUDIOLOGY/TYMPANOMETRY ORDER(Performed 03/19/2022) * COMPREHENSIVE METABOLIC PANEL(Performed 12/06/2021) Performed for High risk medications (not anticoagulants) long-term use * CBC W AUTO DIFFERENTIAL(Performed 12/06/2021) Performed for High risk medications (not anticoagulants) long-term use * CYCLIC CITRUL PEPTIDE ANTIBODY IGG/IGA (CCP)(Performed 08/02/2021) Performed for Psoriasis, Arthralgia, unspecified joint * RHEUMATOID FACTOR BLOOD QUANTITATIVE(Performed 08/02/2021) Performed for Psoriasis, Arthralgia, unspecified joint * GONZALES BLOOD SCREEN W/REFLEX TITER(Performed 08/02/2021) Performed for Psoriasis, Arthralgia, unspecified joint * HLA TYPING B27(Performed 08/02/2021) Performed for Psoriasis, Arthralgia, unspecified joint * C-REACTIVE PROTEIN(Performed 08/02/2021) Performed for Psoriasis, Arthralgia, unspecified joint * ERYTHROCYTE SEDIMENTATION RATE(Performed 08/02/2021) Performed for Psoriasis, Arthralgia, unspecified joint * QUANTIFERON-TB GOLD PLUS 4-TUBE(Performed 08/02/2021) Performed for Psoriasis, Arthralgia, unspecified joint * XR CHEST 2VW(Performed 08/02/2021) Performed for Psoriasis, Arthralgia, unspecified joint * XR WRIST LEFT 3VW OR MORE(Performed 08/02/2021) Performed for Psoriasis, Arthralgia, unspecified joint * XR WRIST RIGHT 3VW OR MORE(Performed 08/02/2021) Performed for Psoriasis, Arthralgia, unspecified joint * XR SI JOINTS 3VW OR MORE(Performed 08/02/2021) Performed for Psoriasis, Arthralgia, unspecified joint * XR SHOULDER LEFT 2VW OR MORE(Performed 08/02/2021) Performed for Psoriasis, Arthralgia, unspecified joint * XR SHOULDER RIGHT 2VW OR MORE(Performed 08/02/2021) Performed for Psoriasis, Arthralgia, unspecified joint * XR KNEE RIGHT 3VW(Performed 08/02/2021) Performed for Psoriasis, Arthralgia, unspecified joint * XR KNEE LEFT 3VW(Performed 08/02/2021) Performed for Psoriasis, Arthralgia, unspecified joint * XR FOOT LEFT 3VW OR MORE(Performed 08/02/2021) Performed for Psoriasis, Arthralgia, unspecified joint * XR FOOT RIGHT 3VW OR MORE(Performed 08/02/2021) Performed for Psoriasis, Arthralgia, unspecified joint * XR HAND LEFT 3VW OR MORE(Performed 08/02/2021) Performed for Psoriasis, Arthralgia, unspecified joint * XR HAND RIGHT 3VW OR MORE(Performed 08/02/2021) Performed for Psoriasis, Arthralgia, unspecified joint * COMPREHENSIVE METABOLIC PANEL(Performed 07/31/2021) Performed for High risk medications (not anticoagulants) long-term use * CBC W AUTO DIFFERENTIAL(Performed 07/31/2021) Performed for High risk medications (not anticoagulants) long-term use * COMPREHENSIVE METABOLIC PANEL(Performed 07/24/2021) Performed for High risk medications (not anticoagulants) long-term use * CBC W AUTO DIFFERENTIAL(Performed 07/24/2021) Performed for High risk medications (not anticoagulants) long-term use * COMPREHENSIVE METABOLIC PANEL(Performed 07/17/2021) Performed for High risk medications (not anticoagulants) long-term use * CBC W AUTO DIFFERENTIAL(Performed 07/17/2021) Performed for High risk medications (not anticoagulants) long-term use * COMPREHENSIVE METABOLIC PANEL(Performed 07/10/2021) Performed for High risk medications (not anticoagulants) long-term use * CBC W AUTO DIFFERENTIAL(Performed 07/10/2021) Performed for High risk medications (not anticoagulants) long-term use * COMPREHENSIVE METABOLIC PANEL(Performed 07/05/2021) Performed for High risk medications (not anticoagulants) long-term use * CBC W AUTO DIFFERENTIAL(Performed 07/05/2021) Performed for High risk medications (not anticoagulants) long-term use * HEPATITIS C AB W/RFLX TO HCV RNA QN PCR(Performed 07/05/2021) Performed for High risk medications (not anticoagulants) long-term use * HEPATITIS B SURFACE ANTIGEN W RFLX CONFIRMATION(Performed 07/05/2021) Performed for High risk medications (not anticoagulants) long-term use * HEPATITIS B SURFACE ANTIBODY(Performed 07/05/2021) Performed for High risk medications (not anticoagulants) long-term use * HEPATITIS B CORE ANTIBODY TOTAL(Performed 07/05/2021) Performed for High risk medications (not anticoagulants) long-term use * VITAMIN D 25-HYDROXY(Performed 04/03/2021) Performed for Vitamin D deficiency * COMPREHENSIVE METABOLIC PANEL(Performed 04/03/2021) Performed for Obesity, unspecified classification, unspecified obesity type, unspecified whether serious comorbidity present * LIPID PROFILE(Performed 04/03/2021) Performed for Obesity, unspecified classification, unspecified obesity type, unspecified whether serious comorbidity present * HEMOGLOBIN A1C(Performed 04/03/2021) Performed for Obesity, unspecified classification, unspecified obesity type, unspecified whether serious comorbidity present * ED INCISION AND DRAINAGE(Performed 06/18/2011) Performed for Cellulitis and abscess of unspecified site * CULTURE ABSCESS(Performed 06/18/2011) Results * MD REMOVE CERUMEN IMPACTED W INSTR LEFT EAR (06/01/2024 3:18 PM DYNAMITE RECLAIMER) Narrative Froilan Monae MD - 06/01/2024 3:18 PM DYNAMITE RECLAIMER Froilan Monae MD ? 06/01/2024 ??3:19 PM Procedure: ??Binocular Microscopic Removal of Impacted Cerumen with debridement of nonoccluding cerumen on the right as well Indications: Cerumen impaction obscuring the tympanic membrane. [...] Froilan Monae MD PROCEDURE/MINOR JAJA GICAL ORDERABLES * MD REMOVE CERUMEN IMPACTED W INSTR ARMIDA (01/13/2024 [...] Froilan Monae MD PROCEDURE/MINOR JAJA GICAL ORDERABLES * QUANTIFERON-TB GOLD PLUS 4-TUBE (11/22/2023 9:49 AM CDT) Only the most recent of3 resultswithin the time period is included. [facility] QuantiFERON Mitogen Minus NIL 9.99 IU/mL 11/27/2023 8:48 PM CDT [facility] ([facility]) QuantiFERON Nil Value 0.01 IU/mL 11/27/2023 8:48 PM CDT [facility] ([facility]) QuantiFERON Plus TB1 Minus NIL 0.02 <=0.34 IU/mL 11/27/2023 8:48 PM CDT [facility] ([facility]) QuantiFERON Plus TB2 Minus NIL 0.03 <=0.34 IU/mL 11/27/2023 8:48 PM CDT [facility] ([facility]) QuantiFERON-TB Gold Plus Negative Negative 11/27/2023 8:48 PM CDT [facility] ([facility]) Comment: INTERPRETIVE INFORMATION:Quantiferon TB Gold Plus Interferon gamma release is measured for specimens from each of the four collection tubes. A qualitative result (Negative, Positive, or Indeterminate) is based on interpretation of the four values: NIL, MITOGEN minus NIL (MITOGEN-NIL), TB1 minus [...] Release Assays to Detect Mycobacterium tuberculosis Infection -- [place], 2010 (http://www.cdc.gov/mmwr/preview/mmwrhtml/ts6034o5.htm), for more information concerning test performance in low-prevalence populations and use in occupational screening. Performed By: [facility] [address] [place] [address] [employer] Manager: Woo Bee MD, PhD CLIA Number: [id number] Blood BLOOD SPECIMEN / Unknown Lab Venipuncture / Unknown 11/22/2023 9:49 AM CDT 11/22/2023 9:57 AM CDT Guillermo Galicia MD LAB - CHEMISTRY ALEENA HERNANDEZ [facility] ([facility]) [address] [place] [address] * (ABNORMAL) C-REACTIVE PROTEIN (11/22/2023 9:49 AM CDT) Only the most recent of2 resultswithin the time period is included. C-Reactive Protein 0.7(H) <=0.5 mg/dL 11/22/2023 10:29 AM CDT [facility] Blood BLOOD SPECIMEN / Unknown Lab Venipuncture / Unknown 11/22/2023 9:49 AM CDT 11/22/2023 10:01 AM CDT Will Naqvi MD LAB - CHEMISTRY ALEENA HERNANDEZ [address] [address], [facility] [phone] * ERYTHROCYTE SEDIMENTATION RATE (11/22/2023 9:49 AM CDT) Only the most recent of2 resultswithin the time period is included. Erythrocyte Sedimentation Rate Westergren 6 0 - 15 MM/HR 11/22/2023 10:16 AM CDT [facility] Blood BLOOD SPECIMEN / Unknown Lab Venipuncture / Unknown 11/22/2023 9:49 AM CDT 11/22/2023 10:01 AM CDT Will Naqvi MD LAB - HEMATOLOGY ORD ERABLES [facility] [address] [place] [address], [facility] [phone] * (ABNORMAL) CBC WITH DIFFERENTIAL (11/22/2023 9:49 AM T) Only the most recent of9 resultswithin the time period is included. WBC 5.9 4.0 - 10.7 x10E9/L 11/22/2023 10:09 AM [facility] RBC Count 4.46 4.30 - 5.80 x10E12/L 11/22/2023 10:09 AM [facility] Hemoglobin 12.7(L) 13.3 - 17.5 g/dL 11/22/2023 10:09 AM [facility] Hematocrit 37.3(L) 38.7 - 51.1 % 11/22/2023 10:09 AM [facility] MCV 83.6 80.0 - 98.0 fL 11/22/2023 10:09 AM [facility] MCH 28.5 26.7 - 33.6 pg 11/22/2023 10:09 AM [facility] MCHC 34.0 31.7 - 36.3 g/dL 11/22/2023 10:09 AM [facility] RDW-CV 13.3 11.3 - 14.8 % 11/22/2023 10:09 AM [facility] Platelet Count 195 150 - 420 x10E9/L 11/22/2023 10:09 AM [facility] MPV 9.7 7.8 - 11.4 fL 11/22/2023 10:09 AM [facility] Neutrophil % 71.2 41.0 - 74.0 % 11/22/2023 10:09 AM [facility] Lymphocyte % 21.5 17.0 - 47.0 % 11/22/2023 10:09 AM [facility] Monocyte % 3.8 3.0 - 11.0 % 11/22/2023 10:09 AM [facility] Eosinophil % 1.9 0.0 - 7.0 % 11/22/2023 10:09 AM [facility] Basophil % 0.7 0.0 - 1.6 % 11/22/2023 10:09 AM [facility] Immature Granulocytes % 0.9 0.0 - 1.0 % 11/22/2023 10:09 AM [facility] Neutrophil Absolute 4.18 1.60 - 7.50 x10E9/L 11/22/2023 10:09 AM [facility] Lymphocyte Absolute 1.26 1.00 - 4.40 x10E9/L 11/22/2023 10:09 AM [facility] Monocyte Absolute 0.22 0.15 - 1.00 x10E9/L 11/22/2023 10:09 AM [facility] Eosinophil Absolute 0.11 0.00 - 0.60 x10E9/L 11/22/2023 10:09 AM [facility] Basophil Absolute 0.04 0.00 - 0.13 x10E9/L 11/22/2023 10:09 AM [facility] Blood BLOOD SPECIMEN / Unknown Lab Venipuncture / Unknown 11/22/2023 9:49 AM CDT 11/22/2023 10:01 AM T Will Naqvi MD LAB - HEMATOLOGY ORD ERABLES [facility] [address] [place] [address], [facility] [phone] * (ABNORMAL) COMPREHENSIVE METABOLIC PANEL (11/22/2023 9:49 AM T) Only the most recent of10 resultswithin the time period is included. BUN 11 7 - 26 mg/dL 11/22/2023 10:29 AM [facility] Creatinine 1.10 0.71 - 1.16 mg/dL 11/22/2023 10:29 AM [facility] Sodium 138 136 - 145 mmol/L 11/22/2023 10:29 AM [facility] Potassium 3.9 3.5 - 4.5 mmol/L 11/22/2023 10:29 AM [facility] Chloride 109(H) 98 - 107 mmol/L 11/22/2023 10:29 AM [facility] CO2 22 22 - 29 mmol/L 11/22/2023 10:29 AM [facility] Glucose 172(H) 70 - 115 mg/dL 11/22/2023 10:29 AM [facility] Calcium 9.4 8.4 - 10.2 mg/dL 11/22/2023 10:29 AM [facility] Protein Total 6.6 6.0 - 8.3 g/dL 11/22/2023 10:29 AM [facility] Albumin 3.8 3.4 - 5.0 g/dL 11/22/2023 10:29 AM [facility] Bilirubin Total 0.3 0.2 - 1.2 mg/dL 11/22/2023 10:29 AM [facility] Alkaline Phosphatase 121 40 - 150 U/L 11/22/2023 10:29 AM [facility] ALT 49 5 - 55 U/L 11/22/2023 10:29 AM [facility] AST 17 5 - 34 U/L 11/22/2023 10:29 AM [facility] Anion Gap 7 6 - 16 11/22/2023 10:29 AM [facility] BUN/Creatinine Ratio 10 7 - 23 11/22/2023 10:29 AM [facility] Osmolality Calculated 289 275 - 295 mOsm/kg 11/22/2023 10:29 AM [facility] Albumin/Globulin Ratio 1.4 1.1 - 2.3 11/22/2023 10:29 AM [facility] eGFR by CKD-EPI >90 >=90 mL/min/1.7 3 m2 11/22/2023 10:29 AM [facility] Blood BLOOD SPECIMEN / Unknown Lab Venipuncture / Unknown 11/22/2023 9:49 AM T 11/22/2023 10:01 AM [facility] Will Naqvi MD LAB - CHEMISTRY ALEENA HERNANDEZ [facility] Organization Address City/State/ZIP Co de Phone Number [facility] [address] [place] [address], [facility] [phone] * XR FOOT RIGHT 3VW OR MORE (10/17/2023 1:57 PM CDT) Only the most recent of2 resultswithin the time period is included. Anatomical Region Laterality Modality Ankle / Foot Radiographic Yoly ging 10/17/2023 2:07 PM CDT Impressions 10/17/2023 9:28 PM CDT IMPRESSION: No significant arthritis in bilateral hands, wrists, feet and sacroiliac joints. Report dictated by Efrain Barnes MD (cardiac cath lab radiology technologist). I, Ko Romano MD have personally reviewed [...] DATE/TIME OF EXAM: ??10/17/2023 1:57 PM, LOCATION ??[facility] INDICATION: L40.50: Psoriatic arthritis (HCC) D84.821: Immunosuppression [...] HAND RIGHT 3VW OR MORE, XR HAND [id number] OR MORE, XR FOOT LEFT 3VW OR MORE, DATE/TIME OF EXAM: 10/17/2023 1:57PM, LOCATION [facility] INDICATION: L40.50: Psoriatic arthritis (HCC) D84.821: Immunosuppression [...] joints. Report dictated by Efrain Barnes MD (cardiac cath lab radiology technologist). Ko Pascual MD have personally reviewed and interpreted this examination/study. > Interpreting Provider: Ko Romano MD on 10/17/2023 9:28 PM Will Naqvi MD DIAGNOSTIC IMAGING O RDERABLES * XR FOOT LEFT 3VW OR MORE (10/17/2023 1:57 PM CDT) Only the most recent of2 resultswithin the time period is included. Anatomical Region Laterality Modality Ankle / Foot Radiographic Yoly ging 10/17/2023 2:07 PM CDT Impressions 10/17/2023 9:28 PM CDT IMPRESSION: No significant arthritis in bilateral hands, wrists, feet and sacroiliac joints. Report dictated by Efrain Barnes MD (cardiac cath lab radiology technologist). Ko Pascual MD have personally reviewed and [...] DATE/TIME OF EXAM: ??10/17/2023 1:57 PM, LOCATION ??[facility] INDICATION: L40.50: Psoriatic arthritis ([facility]) D84.821: 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[facility]) Z79.899: 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[facility]) L40.9: Psoriasis ADDITIONAL CLINICAL INFORMATION: Ordering Provider [...] HAND RIGHT 3VW OR MORE, XR HAND [id number] OR MORE, XR FOOT LEFT 3VW OR MORE, DATE/TIME OF EXAM: 10/17/2023 1:57PM, LOCATION [facility] INDICATION: L40.50: Psoriatic arthritis ([facility]) D84.821: 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[facility]) Z79.899: 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[facility]) L40.9: Psoriasis ADDITIONAL CLINICAL INFORMATION: Ordering Provider [...] joints. Report dictated by Efrain Barnes MD (cardiac cath lab radiology technologist). I, Ko Romano MD have personally reviewed and interpreted this examination/study. > Interpreting Provider: Ko Romano MD on 10/17/2023 9:28 PM Will Naqvi MD DIAGNOSTIC IMAGING O RDERABLES * XR HAND RIGHT 3VW OR MORE (10/17/2023 1:57 PM CDT) Only the most recent of2 resultswithin the time period is included. Anatomical Region Laterality Modality Wrist / Hand Radiographic Yoly ging 10/17/2023 2:07 PM CDT Impressions 10/17/2023 9:28 PM CDT IMPRESSION: No significant arthritis in bilateral hands, wrists, feet and sacroiliac joints. Report dictated by Efrain Barnes MD (cardiac cath lab radiology technologist). I, Ko Romano MD have personally reviewed [...] DATE/TIME OF EXAM: ??10/17/2023 1:57 PM, LOCATION ??[facility] INDICATION: L40.50: Psoriatic arthritis (HCC) D84.821: Immunosuppression [...] HAND RIGHT 3VW OR MORE, XR HAND [id number] OR MORE, XR FOOT LEFT 3VW OR MORE, DATE/TIME OF EXAM: 10/17/2023 1:57PM, LOCATION [facility] INDICATION: L40.50: Psoriatic arthritis (HCC) D84.821: Immunosuppression [...] joints. Report dictated by Efrain Barnes MD (cardiac cath lab radiology technologist). Ko Pascual MD have personally reviewed and interpreted this examination/study. > Interpreting Provider: Ko Romano MD on 10/17/2023 9:28 PM Will Naqvi MD DIAGNOSTIC IMAGING O RDERABLES * XR HAND LEFT 3VW OR MORE (10/17/2023 1:57 PM CDT) Only the most recent of2 resultswithin the time period is included. Anatomical Region Laterality Modality Wrist / Hand Radiographic Yoly ging 10/17/2023 2:07 PM CDT Impressions 10/17/2023 9:28 PM CDT IMPRESSION: No significant arthritis in bilateral hands, wrists, feet and sacroiliac joints. Report dictated by Efrain Barnes MD (cardiac cath lab radiology technologist). Ko Pascual MD have personally reviewed and [...] DATE/TIME OF EXAM: ??10/17/2023 1:57 PM, LOCATION ??[facility] INDICATION: L40.50: Psoriatic arthritis ([facility]) D84.821: 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[facility]) Z79.899: 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[facility]) L40.9: Psoriasis ADDITIONAL CLINICAL INFORMATION: Ordering Provider [...] HAND RIGHT 3VW OR MORE, XR HAND [id number] OR MORE, XR FOOT LEFT 3VW OR MORE, DATE/TIME OF EXAM: 10/17/2023 1:57PM, LOCATION [facility] INDICATION: L40.50: Psoriatic arthritis (HCC) D84.821: 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[facility]) Z79.899: 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[facility]) L40.9: Psoriasis ADDITIONAL CLINICAL INFORMATION: Ordering Provider [...] joints. Report dictated by Efrain Barnes MD (cardiac cath lab radiology technologist). Ko Pascual MD have personally reviewed and [...] joints. Report dictated by Efrain Barnes MD (cardiac cath lab radiology technologist). 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 Report dictated by Efrain Barnes MD (cardiac cath lab radiology technologist). I, Ko Romano MD have personally reviewed [...] joints. Report dictated by Efrain Barnes MD (cardiac cath lab radiology technologist). 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 Report dictated by Efrain Barnes MD (cardiac cath lab radiology technologist). Ko Pascual MD have personally reviewed and interpreted this examination/study. > Interpreting Provider: Ko Romano MD on 10/17/2023 9:28 PM Will Naqvi MD DIAGNOSTIC IMAGING O RDERABLES * XR SI JOINTS 3VW OR MORE (10/17/2023 1:57 PM CDT) Only the most recent of2 resultswithin the time period is included. Anatomical Region Laterality Modality Pelvis, Lower Extremity Radiogra [facility] 10/17/2023 2:07 PM CDT Impressions 10/17/2023 9:28 PM CDT IMPRESSION: No significant arthritis in bilateral hands, wrists, feet and sacroiliac joints. Report dictated by Efrain Barnes MD (cardiac cath lab radiology technologist). 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 Report dictated by Efrain Barnes MD (cardiac cath lab radiology technologist). I, Ko Romano MD have personally reviewed and interpreted this examination/study. > Interpreting Provider: Ko Romano MD on 10/17/2023 9:28 PM Will Naqvi MD DIAGNOSTIC IMAGING O RDERABLES * HIV-1 HIV-2 ANTIBODY + HIV P24 AG PANEL (07/24/2023 2:25 PM DYNAMITE RECLAIMER) HIV Antigen/Antibod y 1 & 2 Non-reacti ve Non-react brian 07/24/2023 3:43 PM DYNAMITE RECLAIMER [facility] Comment:No Laboratory eviden ce of HIV infection. Blood BLOOD SPECIMEN / Unknown Lab Venipuncture / Unknown 07/24/2023 2:25 PM DYNAMITE RECLAIMER 07/24/2023 2:56 PM DYNAMITE RECLAIMER Richard Chacon III, MD LAB - CHEMISTRY O RDERABLES [facility] [address] [place] [phone], [facility] [phone] * (ABNORMAL) HEMOGLOBIN A1C (07/24/2023 2:25 PM DYNAMITE RECLAIMER) Only the most recent of2 resultswithin the time period is included. Hemoglobin A1c 5.7(H) <=5.6 % 07/25/2023 11:16 AM [facility] Estimated Average Glucose 117 mg/dL 07/25/2023 11:16 AM [facility] Comment: HbA1c Interpretation: Normal : < 5.7% Pre-diabetes: 5.7-6.4% Diabetes: Equal to or greater than 6.5% Test results diagnostic of diabetes should be repeated for confirmation. Treatment target values recommended by ADA and other clinical organizations should be used to evaluate metabolic control in patients. Reference: [place] [employer], Standards of Care in Diabetes -2020 In patients 70 years and older consider HbA1c target range of 7.0-7.5% (Reference: Alberto Everett et al. JAMDA. 2012) The Sebia assay for the measurement of HbA1c is a National Glycohemoglobin Standardization Program (NGSP) certified method. Blood BLOOD SPECIMEN / Unknown Lab Venipuncture / Unknown 07/24/2023 2:25 PM DYNAMITE RECLAIMER 07/24/2023 2:58 PM DYNAMITE RECLAIMER Richard Chacon III, MD LAB - CHEMISTRY O RDERABLES Performing Organization Address [facility]/State/ZIP Co de Phone Number [facility] [address] [place] [phone], [facility] [phone] * (ABNORMAL) LIPID PROFILE (07/24/2023 2:25 PM DYNAMITE RECLAIMER) Only the most recent of2 resultswithin the time period is included. Cholesterol Total 151 <200 mg/dL 07/24/2023 3:25 PM [facility] HDL 27(L) >40 mg/dL 07/24/2023 3:25 PM [facility] Comment: ATP III Classification of HDL Cholesterol: ? <40 mg/dL: ??Considered a major risk factor. ? >60 mg/dL: ??Considered a negative risk factor. ? LDL Calculated 99 <100 mg/dL 07/24/2023 3:25 PM [facility] Comment: ATP III Classification of LDL Cholesterol: ?<100 mg/dL: ??Optimal ? 100 - 129 mg/dL: ??Near Optimal/Above Optimal ? 130 - 159 mg/dL: ??Borderline High ? 160 - 189 mg/dL: ??High ?>190 mg/dL: ??Very High ? Triglycerides 124 <150 mg/dL 07/24/2023 3:25 PM [facility] Comment: ATP III Classification of Triglycerides: ?<150 mg/dL: ??Normal ? 150 - 199 mg/dL: ??Borderline High ? 200 - 400 mg/dL: ??High ?>500 mg/dL: ??Very High Blood BLOOD SPECIMEN / Unknown Lab Venipuncture / Unknown 07/24/2023 2:25 PM DYNAMITE RECLAIMER 07/24/2023 2:57 PM DYNAMITE RECLAIMER Richard Chacon III, MD LAB - CHEMISTRY O RDERABLES Performing Organization Address [facility]/State/[facility] Co de Phone Number [facility] [address] [place] [address], [facility] [phone] * MD EAR MICROSCOPY EXAMINATION (03/21/2023 4:40 PM CDT) Narrative Froilan Monae MD - 03/21/2023 4:40 PM CDT Froilan Monae MD ? 03/21/2023 ??4:40 PM Procedure: ??Microscopic exam of the ear(s) Findings: See main note. Procedure in detail: The binocular operating microscope and and ear speculum were used to exam the ear(s). ??The patient tolerated the procedure well and there was no bleeding. Froilan Monae MD Froilan Monae MD PROCEDURE/MINOR JAJA GICAL ORDERABLES * AUDIOLOGY/TYMPANOMETRY ORDER (03/21/2023 2:22 PM CDT) [...] conductive hearing in the left ear. ??Speech Flying Squad Worker Thresholds is in good agreement with pure [...] or PCP PRN. Ismael Castro, Ph.D., SKYLER., [facility]-A Cvt Tech Director, Division of Audiology Department of Otolaryngology- Head & Neck Surgery [facility] [employer] [facility] Ismael Castro PhD AUDIOLOGY SERVICES O RDERABLES * MD EAR MICROSCOPY EXAMINATION (03/19/2022 3:34 PM CDT) Narrative Froilan Monae MD - 03/19/2022 3:34 PM CDT Froilan Monae MD ? 03/19/2022 ??3:35 PM Procedure: ??Microscopic exam of the ear(s) Findings: See main note. Procedure in detail: The binocular operating microscope and and ear speculum were used to exam the ear(s). ??The patient tolerated the procedure well and there was no bleeding. Froilan Monae MD Froilan Monae MD PROCEDURE/MINOR JAJA GICAL ORDERABLES * AUDIOLOGY/TYMPANOMETRY ORDER (03/19/2022 2:11 PM CDT) Ismael Rose, PhD - 03/19/2022 2:38 PM CDT Manoj Horner is a 26 year old male was seen for an [...] not a history of previous ear surgery. Results: Puretone air/bone conduction testing revealed a moderate rising to mild conductive hearing loss in the right ear and a moderate rising to mild conductive hearing loss in the left ear. ??Speech Flying Squad Worker Thresholds is in good agreement with pure tone average(see speech audiometry for details). Findings were reviewed and discussed with Manoj Horner following the hearing evaluation. Plan: 1. The risks and benefits of my recommendations, as well as other treatment options were discussed today. 2. I recommend that the patient follow up with their facility, ENT or PCP PRN. 3. Retest post treatment. Ismael Castro, Ph.D., SKYLER., CCC-A Cvt Tech Director, Division of Audiology Department of Otolaryngology- Head & Neck Surgery [facility] [employer] [facility] Ismael Castro PhD AUDIOLOGY SERVICES O RDERABLES * CYCLIC CITRUL PEPTIDE ANTIBODY IGG/IGA (CCP) (08/02/2021 10:18 AM DYNAMITE RECLAIMER) CCP Antibodies IgG/IgA 2 0 - 19 units 08/03/2021 11:07 PM DYNAMITE RECLAIMER [facility] ([facility]) Comment: ?Negative ? <20 ?Weak positive ?20 - 39 ?Moderate positive ??40 - 59 ?Strong positive ?>59 Blood BLOOD SPECIMEN / Unknown Lab Venipuncture / Unknown 08/02/2021 10:18 AM DYNAMITE RECLAIMER 08/02/2021 11:25 AM DYNAMITE RECLAIMER Narrative [facility] ([facility]) - 08/03/2021 11:07 PM DYNAMITE RECLAIMER Performed at: ??01 - [facility] [address] ??[id number] Risk Control Manager: Gaviota Krishnamurthy MD, Phone: ??[phone] Estee Peck MD LAB - SEROLOGY ORDER SUDEEP Performing Organization Address [facility] Co de Phone Number [facility] [address] [place] [phone] * RHEUMATOID FACTOR BLOOD QUANTITATIVE (08/02/2021 10:18 AM DYNAMITE RECLAIMER) [facility] Rheumatoid Factor <15 <30 IU/mL 08/02/2021 11:57 AM DYNAMITE RECLAIMER [facility] Rheumatoid Factor Screen Negative Negative 08/02/2021 11:57 AM DYNAMITE RECLAIMER [facility] Blood BLOOD SPECIMEN / Unknown Lab Venipuncture / Unknown 08/02/2021 10:18 AM DYNAMITE RECLAIMER 08/02/2021 11:25 AM DYNAMITE RECLAIMER Estee Peck MD LAB - CHEMISTRY ORDE MARY Performing Organization Address City/[facility]/ZIP Co de Phone Number [address] [phone], [facility] [phone] * GONZALES BLOOD SCREEN W/REFLEX TITER (08/02/2021 10:18 AM DYNAMITE RECLAIMER) Pathologist [facility] GONZALES IgG None Detected None Detected 08/04/2021 8:04 AM DYNAMITE RECLAIMER [facility] ([facility]) Comment: If suspicion of connective tissue disease is strong and GONZALES EIA is negative, consider testing for GONZALES by IFA ([id number]). INTERPRETIVE INFORMATION: Anti-Nuclear Antibodies (GONZALES), IgG by DEDE Antinuclear Antibodies (GONZALES), IgG by DEDE: GONZALES specimens are screened using enzyme-linked immunosorbent assay (DEDE) methodology. All DEDE results reported as Detected are further tested by indirect fluorescent assay (IFA) using HEp-2 substrate with an IgG-specific conjugate. The GONZALES DEDE screen is designed to detect antibodies against dsDNA, histones, SS-A (Ro), SS-B (La), Jon, Jon/ELECTRONICS MECHANIC, Scl-70, Azeb-1, centromeric proteins, other antigens extracted from the HEp-2 cell nucleus. GONZALES DEDE assays have been reported to have lower sensitivities than GONZALES IFA for systemic autoimmune rheumatic diseases (SARD). Negative results do not necessarily rule out SARD. Performed By: [facility] [address] [place] [address] Perennial House Manager: Kiarra Fowler MD Blood BLOOD SPECIMEN / Unknown Lab Venipuncture / Unknown 08/02/2021 10:18 AM DYNAMITE RECLAIMER 08/02/2021 11:25 AM DYNAMITE RECLAIMER Estee Peck MD LAB - CHEMISTRY ORDE [facility]ARY [facility] [employer] [facility]) [address] [place] [address] * HLA TYPING B27 (08/02/2021 10:18 AM DYNAMITE RECLAIMER) HLA-B27 Negative Negative 08/04/2021 5:25 PM DYNAMITE RECLAIMER [facility] ([facility]) Comment: INTERPRETIVE INFORMATION: HLA-B27 HLA-B27 is a serologically defined allele of the human HLA-B locus. The presence of the HLA-B27 antigen is strongly associated with ankylosing spondylitis and related disorders. This test was developed and its performance characteristics determined by [facility]. It has not been cleared or approved by the [place] Food and Drug Administration. This test was performed in a CLIA certified laboratory and is intended for clinical purposes. Performed by [facility], [address] [place] [address] [email or web address], Kiarra Fowler MD, Lab. Director Blood BLOOD SPECIMEN / Unknown Lab Venipuncture / Unknown 08/02/2021 10:18 AM DYNAMITE RECLAIMER 08/02/2021 11:25 AM DYNAMITE RECLAIMER Estee Peck MD LAB - CHEMISTRY ALEENA HERNANDEZ [facility] ([facility]) [address] [phone], [facility] * XR KNEE RIGHT 3VW (08/02/2021 10:00 AM DYNAMITE RECLAIMER) Anatomical Region Laterality Modality Lower Extremity Radiographic Yoly ging 08/02/2021 10:1 2 AM DYNAMITE RECLAIMER Impressions 08/02/2021 10:42 AM DYNAMITE RECLAIMER IMPRESSION: No evidence of bony erosions or significant degenerative changes. Dictated by Paulo Barragan D.O. (Lockstitch Binder) I, Dr. EDISON FELIX MD have personally reviewed and interpreted this examination/study. This report was electronically signed by EDISON FELIX MD ??on 08/02/2021 10:42 AM . Narrative 08/02/2021 10:42 AM DYNAMITE RECLAIMER EXAMINATION: XR KNEE RIGHT 3VW, XR FOOT RIGHT 3VW OR MORE HISTORY: L40.9: Psoriasis M25.50: Arthralgia, unspecified joint COMPARISON: None. FINDINGS: Right knee: The osseous structures are intact and well aligned without acute fracture or dislocation. The knee joint space is preserved. No joint effusion is seen. Bone density and texture are normal. Right foot: The osseous structures are intact and well aligned without acute fracture or dislocation. The joint spaces are preserved. Bone density and texture are normal. No soft tissue swelling is present. Procedure Note Edison Felix MD - 08/02/2021 EXAMINATION: XR KNEE RIGHT 3VW, XR FOOT RIGHT 3VW OR MORE HISTORY: L40.9: Psoriasis M25.50: Arthralgia, unspecified joint COMPARISON: None. FINDINGS: Right knee: The osseous structures are intact and well aligned without acutefracture or dislocation. The knee joint space is preserved. No joint effusion is seen. Bone density and texture are normal. Right foot: The osseous structures are intact and well aligned without acutefracture or dislocation. The joint spaces are preserved. Bone density and texture are normal. No soft tissue swelling is present. IMPRESSION: No evidence of bony erosions or significant degenerative changes. Dictated by Paulo Barragan D.O. (Lockstitch Binder) Dr. EDISON Pascual MD have personally reviewed and interpreted this examination/study. This report was electronically signed by EDISON FELIX MD on08/02/2021 10:42 AM . Estee Peck MD DIAGNOSTIC IMAGING O RDERABLES * XR KNEE LEFT 3VW (08/02/2021 10:00 AM DYNAMITE RECLAIMER) Anatomical Region Laterality Modality Lower Extremity Radiographic Yoly ging 08/02/2021 10:0 8 AM DYNAMITE RECLAIMER Impressions 08/02/2021 10:43 AM DYNAMITE RECLAIMER IMPRESSION: No evidence of bony erosions or significant degenerative changes. Dictated by Paulo Barragan D.O. (Lockstitch Binder) Dr. EDISON Pascual MD have personally reviewed and interpreted this examination/study. This report was electronically signed by EDISON FELIX MD ??on 08/02/2021 10:43 AM . Narrative 08/02/2021 10:43 AM DYNAMITE RECLAIMER EXAMINATION: XR KNEE LEFT 3VW, XR FOOT LEFT 3VW OR MORE HISTORY: L40.9: Psoriasis M25.50: Arthralgia, unspecified joint COMPARISON: None. FINDINGS: Left knee: The osseous structures are intact and well aligned without acute fracture or dislocation. The knee joint space is preserved. No joint effusion is seen. Bone density and texture are normal. Left foot: The osseous structures are intact and well aligned without acute fracture or dislocation. The joint spaces are preserved. No soft tissue swelling is present. Procedure Note Edison Felix MD - 08/02/2021 EXAMINATION: XR KNEE LEFT 3VW, XR FOOT LEFT 3VW OR MORE HISTORY: L40.9: Psoriasis M25.50: Arthralgia, unspecified joint COMPARISON: None. FINDINGS: Left knee: The osseous structures are intact and well aligned without acutefracture or dislocation. The knee joint space is preserved. No joint effusion is seen. Bone density and texture are normal. Left foot: The osseous structures are intact and well aligned without acutefracture or dislocation. The joint spaces are preserved. No soft tissue swellingis present. IMPRESSION: No evidence of bony erosions or significant degenerative changes. Dictated by Paulo Barragan D.O. (Lockstitch Binder) Dr. EDISON Pascual MD have personally reviewed and interpreted this examination/study. This report was electronically signed by EDISON FELIX MD on08/02/2021 10:43 AM . Estee Peck MD DIAGNOSTIC IMAGING O RDERABLES * XR WRIST RIGHT 3VW OR MORE (08/02/2021 10:00 AM DYNAMITE RECLAIMER) Anatomical Region Laterality Modality Wrist / Hand Radiographic Yoly ging 08/02/2021 10:0 2 AM DYNAMITE RECLAIMER Impressions 08/02/2021 10:40 AM DYNAMITE RECLAIMER IMPRESSION: No evidence of bony erosions or degenerative changes. Dictated by Paulo Barragan D.O. (Lockstitch Binder) Dr. EDISON Pascual MD have personally reviewed and interpreted this examination/study. This report was electronically signed by EDISON FELIX MD ??on 08/02/2021 10:40 AM . Narrative 08/02/2021 10:40 AM DYNAMITE RECLAIMER EXAMINATION: XR SHOULDER RIGHT 2VW OR MORE, XR WRIST RIGHT 3VW OR MORE, XR HAND RIGHT 3VW OR MORE HISTORY: L40.9: Psoriasis M25.50: Arthralgia, unspecified joint COMPARISON: None. FINDINGS: Right shoulder: The osseous structures are intact [...] preserved. No soft tissue swelling is present. Procedure Note Edison Felix MD - 08/02/2021 EXAMINATION: XR SHOULDER RIGHT 2VW OR MORE, XR WRIST RIGHT 3VW OR MORE,XR HAND RIGHT 3VW OR MORE HISTORY: L40.9: Psoriasis M25.50: Arthralgia, unspecified joint COMPARISON: None. FINDINGS: Right shoulder: The osseous structures are intact without acute fracture. Theglenohumeral and acromioclavicular joints are in anatomic alignment. Bone density and texture are normal. Right wrist: The osseous structures are intact and well aligned without acutefracture or dislocation. The joint spaces are preserved. No soft tissue swellingis present. Right hand: The osseous structures are intact and well aligned without acutefracture or dislocation. The joint spaces are preserved. No soft tissue swellingis present. IMPRESSION: No evidence of bony erosions or degenerative changes. Dictated by Paulo Barragan D.O. (Lockstitch Binder) Dr. EDISON Pascual MD have personally reviewed and interpreted this examination/study. This report was electronically signed by EDISON FELIX MD on08/02/2021 10:40 AM . Estee Peck MD DIAGNOSTIC IMAGING O RDERABLES * XR WRIST LEFT 3VW OR MORE (08/02/2021 10:00 AM DYNAMITE RECLAIMER) Anatomical Region Laterality Modality Wrist / Hand Radiographic Yoly ging 08/02/2021 10:0 5 AM DYNAMITE RECLAIMER Impressions 08/02/2021 10:41 AM DYNAMITE RECLAIMER IMPRESSION: No evidence of bony erosions or degenerative changes. Dictated by Paulo Barragan D.O. (Lockstitch Binder) Dr. EDISON Pascual MD have personally reviewed and interpreted this examination/study. This report was electronically signed by EDISON FELIX MD ??on 08/02/2021 10:41 AM . Narrative 08/02/2021 10:41 AM DYNAMITE RECLAIMER EXAMINATION: XR SHOULDER LEFT 2VW OR MORE, XR WRIST LEFT 3VW OR MORE, XR HAND LEFT 3VW OR MORE HISTORY: L40.9: Psoriasis M25.50: Arthralgia, unspecified joint COMPARISON: None. FINDINGS: Left shoulder: The osseous structures are intact [...] preserved. No soft tissue swelling is present. Procedure Note Edison Felix MD - 08/02/2021 EXAMINATION: XR SHOULDER LEFT 2VW OR MORE, XR WRIST LEFT 3VW OR MORE, XR HAND LEFT 3VW OR MORE HISTORY: L40.9: Psoriasis M25.50: Arthralgia, unspecified joint COMPARISON: None. FINDINGS: Left shoulder: The osseous structures are intact without acute fracture. Theglenohumeral and acromioclavicular joints are in anatomic alignment. Bone density and texture are normal. Left wrist: The osseous structures are intact and well aligned without acutefracture or dislocation. The joint spaces are preserved. No soft tissue swellingis present. Left hand: The osseous structures are intact and well aligned without acutefracture or dislocation. The joint spaces are preserved. No soft tissue swellingis present. IMPRESSION: No evidence of bony erosions or degenerative changes. Dictated by Paulo Barragan D.O. (Lockstitch Binder) Dr. EDISON Pascual MD have personally reviewed and interpreted this examination/study. This report was electronically signed by EDISON FELIX MD on08/02/2021 10:41 AM . Estee Peck MD DIAGNOSTIC IMAGING O RDERABLES * XR SHOULDER RIGHT 2VW OR MORE (08/02/2021 10:00 AM DYNAMITE RECLAIMER) Anatomical Region Laterality Modality Upper Extremity Radiographic Yoly ging 08/02/2021 10:0 2 AM DYNAMITE RECLAIMER Impressions 08/02/2021 10:40 AM DYNAMITE RECLAIMER IMPRESSION: No evidence of bony erosions or degenerative changes. Dictated by Paulo Barragan D.O. (Lockstitch Binder) Dr. EDISON Pascual MD have personally reviewed and interpreted this examination/study. This report was electronically signed by EDISON FELIX MD ??on 08/02/2021 10:40 AM . Narrative 08/02/2021 10:40 AM DYNAMITE RECLAIMER EXAMINATION: XR SHOULDER RIGHT 2VW OR MORE, XR WRIST RIGHT 3VW OR MORE, XR HAND RIGHT 3VW OR MORE HISTORY: L40.9: Psoriasis M25.50: Arthralgia, unspecified joint COMPARISON: None. FINDINGS: Right shoulder: The osseous structures are intact [...] preserved. No soft tissue swelling is present. Procedure Note Edison Felix MD - 08/02/2021 EXAMINATION: XR SHOULDER RIGHT 2VW OR MORE, XR WRIST RIGHT 3VW OR MORE,XR HAND RIGHT 3VW OR MORE HISTORY: L40.9: Psoriasis M25.50: Arthralgia, unspecified joint COMPARISON: None. FINDINGS: Right shoulder: The osseous structures are intact without acute fracture. Theglenohumeral and acromioclavicular joints are in anatomic alignment. Bone density and texture are normal. Right wrist: The osseous structures are intact and well aligned without acutefracture or dislocation. The joint spaces are preserved. No soft tissue swellingis present. Right hand: The osseous structures are intact and well aligned without acutefracture or dislocation. The joint spaces are preserved. No soft tissue swellingis present. IMPRESSION: No evidence of bony erosions or degenerative changes. Dictated by Paulo Barragan D.O. (Lockstitch Binder) IDr. EDISON MD have personally reviewed and interpreted this examination/study. This report was electronically signed by EDISON FELIX MD on08/02/2021 10:40 AM . Estee Peck MD DIAGNOSTIC IMAGING O RDERABLES * XR SHOULDER LEFT 2VW OR MORE (08/02/2021 10:00 AM DYNAMITE RECLAIMER) Anatomical Region Laterality Modality Upper Extremity Radiographic Yoly ging 08/02/2021 10:0 5 AM DYNAMITE RECLAIMER Impressions 08/02/2021 10:41 AM DYNAMITE RECLAIMER IMPRESSION: No evidence of bony erosions or degenerative changes. Dictated by Paulo Barragan D.O. (Lockstitch Binder) Dr. EDISON Pascual MD have personally reviewed and interpreted this examination/study. This report was electronically signed by EDISON FELIX MD ??on 08/02/2021 10:41 AM . Narrative 08/02/2021 10:41 AM DYNAMITE RECLAIMER EXAMINATION: XR SHOULDER LEFT 2VW OR MORE, XR WRIST LEFT 3VW OR MORE, XR HAND LEFT 3VW OR MORE HISTORY: L40.9: Psoriasis M25.50: Arthralgia, unspecified joint COMPARISON: None. FINDINGS: Left shoulder: The osseous structures are intact [...] preserved. No soft tissue swelling is present. Procedure Note Edison Felix MD - 08/02/2021 EXAMINATION: XR SHOULDER LEFT 2VW OR MORE, XR WRIST LEFT 3VW OR MORE, XR HAND LEFT 3VW OR MORE HISTORY: L40.9: Psoriasis M25.50: Arthralgia, unspecified joint COMPARISON: None. FINDINGS: Left shoulder: The osseous structures are intact without acute fracture. Theglenohumeral and acromioclavicular joints are in anatomic alignment. Bone density and texture are normal. Left wrist: The osseous structures are intact and well aligned without acutefracture or dislocation. The joint spaces are preserved. No soft tissue swellingis present. Left hand: The osseous structures are intact and well aligned without acutefracture or dislocation. The joint spaces are preserved. No soft tissue swellingis present. IMPRESSION: No evidence of bony erosions or degenerative changes. Dictated by Paulo Barragan D.O. (Lockstitch Binder) Dr. EDISON Pascual MD have personally reviewed and interpreted this examination/study. This report was electronically signed by EDISON FELIX MD on08/02/2021 10:41 AM . Estee Peck MD DIAGNOSTIC IMAGING O RDERABLES * XR CHEST 2VW (08/02/2021 10:00 AM DYNAMITE RECLAIMER) Anatomical Region Laterality Modality Chest Radiographic Yoly ging 08/02/2021 10:0 3 AM DYNAMITE RECLAIMER Impressions 08/02/2021 5:18 PM DYNAMITE RECLAIMER FINDINGS/IMPRESSION: There is asymmetric elevation of the right hemidiaphragm. There is no focal consolidation, pleural effusion, or pneumothorax. The cardiomediastinal silhouette is normal. The visible bony thorax is intact. Report drafted by Efrain Barnes M.D. (resident) Dr. MYRA Pascual have personally reviewed and interpreted this examination/study. This report was electronically signed by MYRA MURILLO ??on 08/02/2021 5:18 PM . Narrative 08/02/2021 5:18 PM DYNAMITE RECLAIMER EXAMINATION: XR CHEST 2VW HISTORY: L40.9: Psoriasis M25.50: Arthralgia, unspecified joint COMPARISON: None. Procedure Note Myra Murillo MD - 08/02/2021 EXAMINATION: XR CHEST 2VW HISTORY: L40.9: Psoriasis M25.50: Arthralgia, unspecified joint COMPARISON: None. FINDINGS/IMPRESSION: There is asymmetric elevation of the right hemidiaphragm. There is no focal consolidation, pleural effusion, or pneumothorax. The cardiomediastinal silhouette is normal. The visible bony thorax isintact. Report drafted by Efrain Barnes M.D. (resident) Dr. MYRA Pascual have personally reviewed and interpreted this examination/study. This report was electronically signed by MYRA MURILLO on 08/02/2021 5:18 PM. Estee Peck MD DIAGNOSTIC IMAGING O RDERABLES * HEPATITIS C AB W/RFLX TO HCV RNA QN PCR (07/05/2021 11:11 AM DYNAMITE RECLAIMER) Hepatitis C Antibody NON-REACTI VE NON-REACT [facility] Signal to Cut-Off 0.01 <1.00 [facility] Comment: HCV antibody was non-reactive. There is no laboratory evidence of HCV infection. In most cases, no further action is required. However, if recent HCV exposure is suspected, a test for HCV RNA (test code 31575) is suggested. For additional information please refer to http://education.Zomazz/faq/JEN88n6 (This link is being provided for informational/ educational purposes only.) REPORT COMMENT: FASTING:NO Test Performed at: [employer] [facility] [id number] SIRIA AGUILAR DO,MPH Blood BLOOD SPECIMEN / Unknown 07/05/2021 11:11 AM DYNAMITE RECLAIMER 07/05/2021 11:12 AM DYNAMITE RECLAIMER Estee Peck MD LAB - CHEMISTRY ALEENA HERNANDEZ Performing Organization Address [facility] [place] [address] * HEPATITIS B SURFACE ANTIBODY (07/05/2021 11:11 AM DYNAMITE RECLAIMER) Hepatitis B Virus Surface Antibody NON-REACTI VE NON-REACT [facility] Comment: Test Performed at: [employer] [facility] [place] ??[phone] SIRIA AGUILAR DO,MPH Blood BLOOD SPECIMEN / Unknown 07/05/2021 11:11 AM DYNAMITE RECLAIMER 07/05/2021 11:12 AM DYNAMITE RECLAIMER Estee Peck MD LAB - CHEMISTRY ALEENA HERNANDEZ Performing Organization Address [facility] [place] [address] * HEPATITIS B CORE ANTIBODY (07/05/2021 11:11 AM DYNAMITE RECLAIMER) Hepatitis B Core Virus Antibody Total NON-REACTI VE NON-REACT [facility] Comment: Test Performed at: [employer] [facility] [facility] [place] ??[phone] SIRIA AGUILAR DO,MPH Blood BLOOD SPECIMEN / Unknown 07/05/2021 11:11 AM DYNAMITE RECLAIMER 07/05/2021 11:12 AM DYNAMITE RECLAIMER Estee Peck MD LAB - CHEMISTRY ALEENA SALLIESARA Performing Organization Address [facility] de Phone Number [facility] [address] [place] [address] * HEPATITIS B SURFACE ANTIGEN W RFLX CONFIRMATION (07/05/2021 11:11 AM DYNAMITE RECLAIMER) [facility] Hepatitis B Virus Surface Antigen NON-REACTI VE NON-REACT [facility] Comment: Test Performed at: [employer] [facility] ??[phone] SRIIA AGUILAR DO,MPH Blood BLOOD SPECIMEN / Unknown 07/05/2021 11:11 AM DYNAMITE RECLAIMER 07/05/2021 11:12 AM DYNAMITE RECLAIMER Estee Peck MD LAB - CHEMISTRY ALEENA HERNANDEZ Performing Organization Address [facility] de Phone Number [facility] [address] [place] [address] * VITAMIN D 25-HYDROXY (04/03/2021 12:40 PM CDT) [facility] Vitamin D, 25 Hydroxy 52.0 30.0 - 80.0 ng/mL 04/03/2021 2:31 PM CDT [facility] Comment: The recommendations for 25-Hydroxy Vitamin D clinical decision points are as follows: ? Deficient: ? <20.0 ng/mL ? Insufficient: ??20.0 - 29.9 ng/mL ? Sufficient: ? > or =30.0 ng/mL If the 25-Hydroxy Vitamin D results are inconsitent with clinical evidence, it is recommended that follow-up testing using a method such as LC/MS/MS be performed to confirm the result. Reference: ?The Endocrine Society Clinical Practice Guidelines. 2010 ? Blood BLOOD SPECIMEN / Unknown Lab Venipuncture / Unknown 04/03/2021 12:40 PM CDT 04/03/2021 1:41 PM CDT Richard Chacon III, MD LAB - CHEMISTRY O RDERABLES Performing Organization Address [facility]/State/[facility] Co de Phone Number [place] [place] [address], [facility] [phone] * ED INCISION AND DRAINAGE (06/18/2011 12:25 PM DYNAMITE RECLAIMER) Narrative Sandra Benson, DO - 06/18/2011 12:25 PM DYNAMITE RECLAIMER Sandra Benson, DO ? 06/18/2011 12:25 PM Provider contact with the patient: 06/18/2011 ?11:59 AM Danis Horner [id number] [facility] History Chief Complaint Patient presents with ? ? Abscess ??bit rt thumb nail 3 days ago; now has pustules and swelling; afebrile; Abscess The history is provided by the patient and parent. This is a new problem. Episode onset: 2 days ago. The onset was gradual. The problem has been gradually worsening. Body Location: right thumb.The problem is moderate. The abscess is characterized by redness, peeling, painfulness, draining and swelling. Associated with: biting nails. There has been no fever, no chills, no nausea, no lymphangitis, and no swollen lymph nodes.The relevant past medical history includes abscess. Past Medical History Diagnosis Date ? ? Bipolar 1 disorder ?? No past surgical history on file. History Social History ? ? Marital Status: Single ??Spouse Name: N/A ??Number of Children: N/A ? ? Years of Education: N/A Occupational History ? ? Not on file. Social History Main Topics ? ? Smoking status: Not on file ? ? Smokeless tobacco: Not on file ? ? Alcohol Use: ? Drug Use: ? Sexually Active: Not on file Other Topics Concern ? ? Not on file Social History Narrative ? ? No narrative on file Medications Current Outpatient Prescriptions Medication Sig Dispense Refill ? ? olanzapine (ZYPREXA) 10 MG tablet Take 10 mg by mouth once daily. ? clindamycin (CLEOCIN) 300 MG capsule Take 1 Cap by mouth every 8 hours for 10 days. ??30 Cap ??0 Review of Systems Review of Systems Constitutional: Negative for fever, appetite change and fatigue. HENT: Negative. ?? Eyes: Negative. ?? Respiratory: Negative. ?? Cardiovascular: Negative. ?? Gastrointestinal: Negative. ?? Genitourinary: Negative. ?? Skin: ? Abscess Neurological: Negative. ?? Hematological: Negative. ?? Psychiatric/Behavioral: Negative. ?? BP 151/67 Pulse 82 Temp 97.6 ??F Resp 18 Wt 76.5 kg (168 lb 10.4 oz) Physical Exam Physical Exam Constitutional: He is oriented to person, place, and time. He appears well-developed and well-nourished. No distress. HENT: Head: Normocephalic and atraumatic. Eyes: EOM are normal. Neck: Normal range of motion. Cardiovascular: Normal rate, regular rhythm, normal heart sounds and intact distal pulses. ?? Pulmonary/Chest: Effort normal and breath sounds normal. No respiratory distress. He has no wheezes. He has no rales. Musculoskeletal: Normal range of motion. Neurological: He is alert and oriented to person, place, and time. He exhibits normal muscle tone. Skin: Skin is warm. Procedures Incision and Drainage Date/Time: 06/18/2011 12:21 PM Performed by: SANDRA BENSON Authorized by: SANDRA BENSON Consent: Verbal consent obtained. Risks and benefits: risks, benefits and alternatives were discussed Consent given by: patient and parent Patient understanding: patient states understanding of the procedure being performed Patient consent: the patient's understanding of the procedure matches consent given Procedure consent: procedure consent matches procedure scheduled Patient identity confirmed: verbally with patient Type: abscess Body area: upper extremity Location details: right thumb Anesthesia: digital block Local anesthetic: lidocaine 1% without epinephrine Anesthetic total: 6 ml Patient sedated: no Scalpel size: 11 Incision type: single straight Complexity: simple Drainage: purulent Drainage amount: moderate Wound treatment: wound left open Packing material: none Patient tolerance: Patient tolerated the procedure well with no immediate complications. EKG Interpretation Lab/SPO2 Interpretation Progress Notes ED Course Medical Decision Making I have reviewed the: Nursing Notes and Vitals. I have discussed the case with Family/Caregiver. Pt is a 15 yo male with a 3 days h/o worsening abscess after biting nail. On exam, Pt is afebrile and cooperative. VSS and in NAD. Pt has a edematous and erythematous right thumb. After verbal consent was obtained, thumb was cleaned with chlorohexidine and the area of flutuence was incised and purulent fluid drained. Pt tolerated the procedure well. Pt will be discharged home with Abx. Dx - abscess with cellulitis. Will f/u with PCP or return to ED for worsening sx or any other concerns. Clinical Impression Encounter Diagnosis Name Primary? ? ? Cellulitis and abscess of unspecified site ?? Procedure Note Sandra Benson, DO - 06/18/2011 11:59 AM CST Images from the original note were not included. Provider contact with the patient: 06/18/2011 11:59 AM Danis Horner [id number] [facility] History Chief Complaint Patient presents with ? ? Abscess bit rt thumb nail 3 days ago; now has pustules and swelling; afebrile; Abscess The history is provided by the patient and parent. This is a new problem.Episode onset: 2 days ago. The onset was gradual. The problem has beengradually worsening. Body Location: right thumb.The problem is moderate.The abscess is characterized by redness, peeling, painfulness, drainingand swelling. Associated with: biting nails. There has been no fever, nochills, no nausea, no lymphangitis, and no swollen lymph nodes.Therelevant past medical history includes abscess. Past Medical History Diagnosis Date ? ? Bipolar 1 disorder No past surgical history on file. History Social History ? ? Marital Status: Single Spouse Name: N/A Number of Children: N/A ? ? Years of Education: N/A Occupational History ? ? Not on file. Social History Main Topics ? ? Smoking status: Not on file ? ? Smokeless tobacco: Not on file ? ? Alcohol Use: ? ? Drug Use: ? ? Sexually Active: Not on file Other Topics Concern ? ? Not on file Social History Narrative ? ? No narrative on file Medications Current Outpatient Prescriptions Medication Sig Dispense Refill ? ? olanzapine (ZYPREXA) 10 MG tablet Take 10 mg by mouth once daily. ? ? clindamycin (CLEOCIN) 300 MG capsule Take 1 Cap by mouth every 8 hoursfor 10 days. 30 Cap 0 Review of Systems Review of Systems Constitutional: Negative for fever, appetite change and fatigue. HENT: Negative. Eyes: Negative. Respiratory: Negative. Cardiovascular: Negative. Gastrointestinal: Negative. Genitourinary: Negative. Skin: Abscess Neurological: Negative. Hematological: Negative. Psychiatric/Behavioral: Negative. BP 151/67 Pulse 82 Temp 97.6 ??F Resp 18 Wt 76.5 kg (168 lb 10.4oz) Physical Exam Physical Exam Constitutional: He is oriented to person, place, and time. He appearswell- developed and well-nourished. No distress. HENT: Head: Normocephalic and atraumatic. Eyes: EOM are normal. Neck: Normal range of motion. Cardiovascular: Normal rate, regular rhythm, normal heart sounds andintact distal pulses. Pulmonary/Chest: Effort normal and breath sounds normal. No respiratorydistress. He has no wheezes. He has no rales. Musculoskeletal: Normal range of motion. Neurological: He is alert and oriented to person, place, and time. Heexhibits normal muscle tone. Skin: Skin is warm. Procedures Incision and Drainage Date/Time: 06/18/2011 12:21 PM Performed by: SANDRA BENSON Authorized by: SANDRA BENSON Consent: Verbal consent obtained. Risks and benefits: risks, benefits and alternatives were discussed Consent given by: patient and parent Patient understanding: patient states understanding of the procedure beingperformed Patient consent: the patient's understanding of the procedure matchesconsent given Procedure consent: procedure consent matches procedure scheduled Patient identity confirmed: verbally with patient Type: abscess Body area: upper extremity Location details: right thumb Anesthesia: digital block Local anesthetic: lidocaine 1% without epinephrine Anesthetic total: 6 ml Patient sedated: no Scalpel size: 11 Incision type: single straight Complexity: simple Drainage: purulent Drainage amount: moderate Wound treatment: wound left open Packing material: none Patient tolerance: Patient tolerated the procedure well with no immediatecomplications. EKG Interpretation Lab/SPO2 Interpretation Progress Notes ED Course Medical Decision Making I have reviewed the: Nursing Notes and Vitals. I have discussed the case with Family/Caregiver. Pt is a 15 yo male with a 3 days h/o worsening abscess after biting nail.On exam, Pt is afebrile and cooperative. VSS and in NAD. Pt has aedematous and erythematous right thumb. After verbal consent was obtained,thumb was cleaned with chlorohexidine and the area of flutuence wasincised and purulent fluid drained. Pt tolerated the procedure well. Ptwill be discharged home with Abx. Dx - abscess with cellulitis. Will f/uwith PCP or return to ED for worsening sx or any other concerns. Clinical Impression Encounter Diagnosis Name Primary? ? ? Cellulitis and abscess of unspecified site Sandra Benson DO PROCEDURE/MINOR SURG ICAL ORDERABLES * CULTURE ABSCESS (06/18/2011 12:00 PM DYNAMITE RECLAIMER) Result [facility] Comment: Final GRAM STAIN Rare WBC's Rare GRAM POSITIVE COCCI CULTURE STAPHYLOCOCCUS AUREUS ??Light growth ??Ciprofloxacin ? TYSON ?Susceptible ??<=0.5 ?? ug/ml ??Clindamycin ? TYSON ?Susceptible <=0.25 ?? ug/ml ??Erythromycin ?TYSON ?Susceptible <=0.25 ?? ug/ml ??Gentamicin ?TYSON ?Susceptible ??<=0.5 ?? ug/ml ??Levofloxacin ?TYSON ?Susceptible ?? 0.25 ?? ug/ml ??Oxacillin ? TYSON ?Susceptible ?0.5 ?? ug/ml ??Tetracycline ?TYSON ?Susceptible ?<=1 ?? ug/ml ??Trimeth/Sulfa ? TYSON ?Susceptible ?? <=10 ?? ug/ml ??Vancomycin ?TYSON ?Susceptible ??<=0.5 ?? ug/ml STREPTOCOCCUS INTERMEDIUS ??Light growth ENTIRE THUMB / Unknown 06/18/2011 12:00 PM DYNAMITE RECLAIMER 06/18/2011 1:32 PM DYNAMITE RECLAIMER Narrative Resulting Agency Comment Performed By [facility];[address] [facility];[place] [address] Azam Strong MD LAB - MICROBIOLOGY O RDERABLES [facility] [address] 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 Relationship Specialty Start Date End Date Richard Chacon III, MD [address] [place] [phone] PCP - General Internal Medicine 01/29/22 Richard Chacon III, MD [address] [place] [phone] PCP - Attributed-[facility] NIYAH SALCIDO P4P 11/23/23 Christa Velez APRN-EDUCATIONAL SPEECH LANGUAGE CLINICIAN [address] [facility] [address] [place] [phone] Psychiatrist Nurse Practitioner 08/07/21 Morgan Randhawa MD [address] [place] [place] [phone] Resident - PCP Internal Medicine 01/29/22 Pineda Randhawa MD [address] [place] [phone] Resident Rheumatology 12/24/22 Will Naqvi MD [address] [place] [phone] [employer] Hand Rheumatology 12/24/22 Pineda Randhawa MD [address] [place] [address] Resident Rheumatology 02/04/23 Estee Pcek MD [address] DE[place] [address] Dermatology 02/04/23
--- OUTSIDE RECORDS SUMMARY | 2024-07-15 18:37 | XMS_ITS | Encounter Summary ---
Author Organization [facility] Address [address] [place] [address] Care Team Providers Care Floor Coverer Apprentice Name Role Phone Agustin Christa HARVEY-SPECIAL EVENTS DRIVER Unavailable Oswaldo BOSCH MD, Francis G Primary Care Provider [phone] Morgan Randhawa MD Unavailable Pineda Randhawa MD Unavailable Will Naqvi MD Unavailable Pineda Randhawa MD Unavailable Estee Peck MD Unavailable Oswaldo BOSCH MD, Francis G Unavailable Reason for Visit * Reason Comments Pain Knee 7 PAIN level muscle spasms in the knee Encounter Details Date Type Department Care Team (Late st Contact Info) Description 12/18/2023 1:30 PM CDT Office Visit [facility] - Rheumatology [employer], [facility] [place] [phone] Pineda Randhawa MD [address] [place] [address] Rd [address] [place] [address] Psoriatic arthritis (HCC) (Primary Dx); Psoriasis; 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HCC) Social History Tobacco Use Types Packs/Day Years [...] Sign Reading Time Taken Comments Blood Pressure 113/76 12/18/2023 2:04 PM CDT Pulse 100 12/18/2023 2:04 PM CDT Temperature - - Respiratory Rate - - Oxygen Saturation 93% 12/18/2023 2:04 PM CDT Inhaled Oxygen Concentration - - Weight 122 kg (269 lb) 12/18/2023 2:04 PM CDT Height 170.2 cm (5' 7 ) 12/18/2023 2:04 PM CDT Body Mass Index 42.13 12/18/2023 2:04 PM CDT documented in this encounter Patient Instructions * Patient Instructions* Pineda Randhawa MD - 12/18/2023 2:21 PM CDT Continue Cosentyx same dose Please follow up with the dermatology for skin psoriasis Follow up in 5-6 months. .If you need to schedule,change or cancel your Rheumatology appointment -at the [facility] ([facility]) at [address] [place] [address], call [phone] or [phone] (option 1) If you choose to get labs or imaging at an outside facility, it is your (as the patient) responsibility to have these results faxed to us at [phone] If you need a refill, please call your Pharmacy first and have them send us a refill request via Fax at [phone]. If you have been given a referral to a new specialist at [facility] and have not received a call to schedule within 1 week, please call [phone] to schedule your visit. If you have been referred to Physical Therapy, but do not receive a call from them to schedule an appointment within 1 week, please call [phone] to schedule your Physical Therapy appointment. You can also utilize the Physical Therapy website at [email or web address] to make an appointment. If you need to leave a message for Dr. Randhawa you can send her an electronic message via [employer]. Ifyou have an emergency after hours, you can reach the senior manager mergers & acquisitions Fellow by calling the Olericulturist at [phone], but please seek appropriate care at Urgent Care or Emergency Room. documented in this encounter Progress Notes * Pineda Randhawa MD - 12/18/2023 2:01 PM CDT . Rheumatology Clinic Consultation Note Patient: Manoj Horner ( , 1995, 28 year old male) Encounter Date: 12/18/2023 Chief Concern: Follow up for PsA Subjective Patient is a a 28 year old male PMHx of PSO, autism spectrum disorder bipolar is here to follow up for arthralgia, working diagnosis possible PsA. On Cosentyx. Interim hx 12/18/23: Arthralgias are stable Has psoriatic patch on the R leg from last few months, some dry scaling on the left arm Has not followed up with the hot plate press operator since 2021. Patient mentioned that he is doing on the current regimen of Cossentyx and Naproxen and Current meds: Cosentyx 300 mg SQ every 28 days since September 2021. Naproxen 500 mg bid Previous medication MTX - did'nt help Review of Systems: Other systems reviewed and negative or noncontributory except as stated in the HPI. Home Medications: Current Outpatient Medications: buPROPion SR 12hr (WELLBUTRIN SR) 200 MG [...] TWICE DAILY, Disp: 60 g, Rfl: 3 folic acid (FOLVITE) 1 MG [...] Rfl: 11 naproxen (Naprosyn) 500 MG tablet, TAKE 1 TABLET BY MOUTH TWICE DAILY, Disp: 120 tablet, Rfl: 1 olanzapine (ZYPREXA) 10 MG tablet, Take 1 (one) tablet by mouth once daily, Disp: , Rfl: secukinumab (Cosentyx Sensoready, 300 MG,) 150 MG/ML SOAJ pen, Inject 300 (three hundred) mg subcutaneously every 28 days, Disp: 2 mL, Rfl: 3 topiramate (Topamax) 25 MG tablet, Take 1 (one) tablet by mouth 2 times daily, Disp: , Rfl: vitamin D3 (Cholecalciferol) 25 MCG (1000 UNITS) tablet, Take 1 (one) tablet by mouth once daily, Disp: , Rfl: Adverse Drug Reactions: Allergies Allergen Reactions Food Headache Spaghetti sauce and mozzarella cheese Past Medical History: Past Medical History: Diagnosis Date Autism (HCC) Bipolar 1 disorder (HCC) Migraines Psoriasis Vitamin D deficiency Objective Physical Exam There were no vitals taken for this visit. GENERAL: NAD HEENT/NECK: No oropharyngeal lesions. CHEST/LUNGS: Normal work of breathing. CARDIOVASCULAR: Regular S1/S2, No ALEC. ABDOMEN: S/ND/NT. SKIN/NAILS: small psoriatic patch on R leg PSYCH: Alert, appropriately interactive. NEURO: Sensation intact to soft touch. Normal muscle bulk and strength in trunk and limbs. MSK: No active synovitis, dactylitis, or enthesitis. Labs: Reviewed, including those as noted below Results for orders placed or performed during the hospital encounter of 11/22/23 (from the past 2352 hour(s)) QUANTIFERON-TB GOLD PLUS 4-TUBE Result Value Ref Range QuantiFERON Mitogen Minus NIL 9.99 IU/mL QuantiFERON Nil Value 0.01 IU/mL QuantiFERON Plus TB2 Minus NIL 0.02 <=0.34 IU/mL QuantiFERON Plus TB2 Minus NIL 0.03 <=0.34 IU/mL QuantiFERON-TB Gold Plus Negative Negative CBC WITH DIFFERENTIAL Result Value Ref Range WBC 5.9 4.0 - 10.7 x10E9/L RBC Count 4.46 4.30 - 5.80 x10E12/L Hemoglobin 12.7 (L) 13.3 - 17.5 g/dL Hematocrit 37.3 (L) 38.7 - 51.1 % MCV 83.6 80.0 - 98.0 fL MCH 28.5 26.7 - 33.6 pg MCHC 34.0 31.7 - 36.3 g/dL RDW-CV 13.3 11.3 - 14.8 % Platelet Count 195 150 - 420 x10E9/L MPV 9.7 7.8 - 11.4 fL Neutrophil % 71.2 41.0 - 74.0 % Lymphocyte % 21.5 17.0 - 47.0 % Monocyte % 3.8 3.0 - 11.0 % Eosinophil % 1.9 0.0 - 7.0 % Basophil % 0.7 0.0 - 1.6 % Immature Granulocytes % 0.9 0.0 - 1.0 % Neutrophil Absolute 4.18 1.60 - 7.50 x10E9/L Lymphocyte Absolute 1.26 1.00 - 4.40 x10E9/L Monocyte Absolute 0.22 0.15 - 1.00 x10E9/L Eosinophil Absolute 0.11 0.00 - 0.60 x10E9/L Basophil Absolute 0.04 0.00 - 0.13 x10E9/L COMPREHENSIVE METABOLIC PANEL Result Value Ref Range BUN 11 7 - 26 mg/dL Creatinine 1.10 0.71 - 1.16 mg/dL Sodium 138 136 - 145 mmol/L Potassium 3.9 3.5 - 4.5 mmol/L Chloride 109 (H) 98 - 107 mmol/L CO2 22 22 - 29 mmol/L Glucose 172 (H) 70 - 115 mg/dL Calcium 9.4 8.4 - 10.2 mg/dL Protein Total 6.6 6.0 - 8.3 g/dL Albumin 3.8 3.4 - 5.0 g/dL Bilirubin Total 0.3 0.2 - 1.2 mg/dL Alkaline Phosphatase 121 40 - 150 U/L ALT 49 5 - 55 U/L AST 17 5 - 34 U/L Anion Gap 7 6 - 16 BUN/Creatinine Ratio 10 7 - 23 Osmolality Calculated 289 275 - 295 mOsm/kg Albumin/Globulin Ratio 1.4 1.1 - 2.3 eGFR by CKD-EPI >90 >=90 mL/min/1.73 m2 C-REACTIVE PROTEIN Result Value Ref Range C-Reactive Protein 0.7 (H) <=0.5 mg/dL ERYTHROCYTE SEDIMENTATION RATE Result Value Ref Range Erythrocyte Sedimentation Rate Westergren 6 0 - 15 MM/HR Other Studies: X rays 10/15: FINDINGS: Right hand: No fracture or dislocation [...] bilateral hands, wrists, feet and sacroiliac joints. Assessment & Recommendations #. Psoriasis # History of PsA: Onset:2020. Phenotype: Polyarthralgia involving knees, ankles and hands. No signs of active synovitis , dactylitis or enthesitis on exam today. Skin lesions improving still has small patch on R leg X-rays 2023 were without any erosive disease. On Cosentyx 300 mg SQ every month (since September 2021) Naproxen 500 mg bid #. Drug Toxicity Monitoring (naproxen): CBC, CMP monitoring q 6 months #. Long-Term Immunosuppression due to Drug Therapy [...] days - Naproxen 500 mg bid - Follow up with Preparer regarding skin psoriasis - CBC, CMP for monitoring been on Naproxen every 6 months #. Follow-up: In 6 months . This patient was seen and staffed with attending Dr. Naqvi. Pineda Randhawa MD Rheumatology Fellow [facility] Encounter orders: No orders of the defined types were placed in this encounter. Associated attestation - Will Naqvi MD - 12/19/2023 2:49 PM CDT Rheumatology Attending Attestation: Date of Service: 12/18/2023 I have seen and examined the patient with the fellow and I agree with the findings and plan of careas documented by the fellow. Encounter Diagnoses: 1. Psoriatic arthritis ([facility]-H[facility]) 2. 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[facility]-HCC) 3. Psoriasis No signs of active inflammatory arthritis on exam. Continue Cosentyx 300 mg subcut. every 4 weeks. Monitor for any infectious complications as he is on Cosentyx. persistent right leg psoriatic plaque, encouraged to have follow up with Derm. Additional contributions to medical decision making for today's encounter: - The patient is on drug therapy requiring intensive monitoring for toxicity. - I reviewed the patient's chart including review of clinical notes, laboratory results, and imaging results dating back to 05/2023 - Additional independent source(s) of information used for assessment included the patient's motherwho accompanied the patient during the visit. - I educated the patient regarding risks and benefits of the management plan, their medical problems, and contingency plans for worsening symptoms. Will aNqvi MD Division of Rheumatology Department of Internal Medicine [employer] documented in this encounter Plan of Treatment Upcoming Encounters Date Type Department Care Team (Late st Contact Info) Description 10/21/2024 1:30 PM CDT Office Visit [facility] - Rheumatology [address] [place] [phone] Paulino Youngblood MD [address] [place] [address] [place] [phone] 11/30/2024 3:00 PM CDT Office Visit [facility] - ENT [address] [place] [phone] Froilan Monae MD [address] [place] [address] [place] [address] 02/15/2025 10:00 AM CDT Office Visit [facility] - Internal Med [address] [place] [phone] Richard Chacon III, MD [address] [place] [address] 2[address] [place] [phone] documented as of this encounter Visit Diagnoses Diagnosis Psoriatic arthritis (HCC)- Primary Psoriatic arthropathy Psoriasis Other psoriasis 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HCC) documented in this encounter Care Teams Floor Coverer Apprentice Relationship Specialty Start Date End Date Richard Cahcon III, MD [address] [place] [address] [address] [place] [phone] PCP - General Internal Medicine 01/29/22 Richard Chacon III, MD [address] [place] [address] [address] [place] [phone] PCP - Attributed-[facility] P[facility] 11/23/23 Christa Velez APRN-SPECIAL EVENTS DRIVER [address] [phone] Psychiatrist Nurse Practitioner 08/07/21 Morgan Randhawa MD [address] [facility] [phone] Resident - PCP Internal Medicine 01/29/22 Pineda Randhawa MD [address] [facility] [phone] Resident Rheumatology 12/24/22 Will Naqvi MD [address] [place] [phone] Tractor Trailer Mechanic Rheumatology 12/24/22 Pineda Randhawa MD [address] [place] [address] Resident Rheumatology 02/04/23 Estee Peck MD [address] [facility] 3 [place] [address] Dermatology 02/04/23 documented as of this encounter
--- OUTSIDE RECORDS SUMMARY | 2024-07-15 18:37 | XMS_ITS | Encounter Summary ---
Author Organization [facility] Address [address] [facility] [place] [address] Care Team Providers Care Single Needle Tufting Machine Operator Name Role Phone AyakacharlotteChrista [facility] Unavailable [phone] Oswaldo BOSCH MD, Francis G Primary Care Provider [phone] Morgan Randhawa MD Unavailable Pineda Randhawa MD Unavailable Will Naqvi MD Unavailable Pineda Randhawa MD Unavailable Estee Peck MD Unavailable Reason for Visit * Reason Comments Refill Request Encounter Details Date Type Department Care Team (Late st Contact Info) Description 04/23/2023 Refill [facility] - Internal Med [address] [place] [address], [place] [address] Richard Chacon III, MD [address] [place] [phone] Refill Request Social History Tobacco Use [...] encounter Miscellaneous Notes * Telephone Encounter - Ursula Mo RN - 04/23/2023 8:55 AM CDT Refill Request UVALDO:02/04/2023 NOV scheduled: 02/10/2024 LRF: 11/21/2022 Qty Disp: unknown # of refills: 0 Allergies: Allergies Allergen Reactions ??? Food Headache Spaghetti sauce and mozzarella cheese Pended Medication Order: Requested Prescriptions Pending Prescriptions Disp Refills ??? melatonin 3 MG tablet [Pharmacy Med Name: MELATONIN 3MG TABLETS] 90 tablet Sig: TAKE 1 TABLET BY MOUTH AT BEDTIME documented in this encounter Plan of Treatment Upcoming Encounters Date Type Department Care Team (Late st Contact Info) Description 10/21/2024 1:30 PM CDT Office Visit [facility] - Rheumatology [address] [place] [phone] Paulino Youngblood MD [address] [place] [address] [place] [phone] 11/30/2024 3:00 PM CDT Office Visit [facility] - ENT [address] [place] [phone] Froilan Monae MD [address] [place] [address] [place] [address] 02/15/2025 10:00 AM CDT Office Visit [facility] - Internal Med [address] [place] [phone] Richard Chacon III, MD [address] [place] [address] [address] [place] [address] documented as of this encounter Visit Diagnoses Not on filedocumented in this encounter Care Teams Single Needle Tufting Machine Operator Relationship Specialty Start Date End Date Richard Chacon III, MD [address] [place] [phone] PCP - General Internal Medicine 01/29/22 Christa Velez APRN-BACTERIOLOGIST MEDICAL [address] [phone] Psychiatrist Nurse Practitioner 08/07/21 Morgan Randhawa MD [address] [place] [place] [phone] Resident - PCP Internal Medicine 01/29/22 Pineda Randhawa MD [address] [phone] Resident Rheumatology 12/24/22 Will Naqvi MD [address] [place] [phone] Coagulating Operator Rheumatology 12/24/22 Pineda Randhawa MD [address] [facility] [address] [place] [phone] Resident Rheumatology 02/04/23 Estee Peck MD [address] [place] [address] Dermatology 02/04/23 documented as of this encounter
--- OUTSIDE RECORDS SUMMARY | 2024-07-15 18:37 | XMS_ITS | Encounter Summary ---
Author Organization [facility] Address [address] [place] [address] Care Team Providers Care Inside Phone Sales Name Role Phone Christa Velez APRN-HEAD MVA REACTOR OPERATOR Unavailable [phone] Oswaldo BOSCH MD, Francis G Primary Care Provider [phone] Morgan Randhawa MD Unavailable Pineda Randhawa MD Unavailable Will Naqvi MD Unavailable Pineda Randhawa MD Unavailable Estee Peck MD Unavailable Oswaldo BOSCH MD, Francis G Unavailable Encounter Details Date Type Department Care Team (Latest Contact Info) Description 06/01/2024 Travel Social History Tobacco Use Types Packs/Day [...] Office Visit [facility] - Rheumatology [address] [place] [phone] Paulino Youngblood MD [address] [place] [address] [place] [phone] 11/30/2024 3:00 PM CDT Office Visit [facility] - ENT [address] [place] [phone] Froilan Monae MD [address] [place] [address] [place] [address] 02/15/2025 10:00 AM CDT Office Visit [facility] - Internal Med [address] [place] [phone] Richard Chacon III, MD [address] [place] [address] [place] [phone] documented as of this encounter Visit Diagnoses Not on filedocumented in this encounter Care Teams Inside Phone Sales Relationship Specialty Start Date End Date Richard Chacon III, MD [address] [place] [address] [place] [phone] PCP - General Internal Medicine 01/29/22 Richard Chacon III, MD [address] [place] [address] 2[address] [place] [phone] PCP - Attributed-[facility] P4P 11/23/23 Christa Velez APRN-HEAD MVA REACTOR OPERATOR [address] Juve Rust [address] [place] [phone] Psychiatrist Nurse Practitioner 08/07/21 Morgan Randhawa MD [address] [place] [address] [place] [phone] Resident - PCP Internal Medicine 01/29/22 Pineda Randhawa MD [address] [facility] [phone] Resident Rheumatology 12/24/22 Will Naqvi MD [address] [facility] [address]L [place] [phone] Highway Maintainer Rheumatology 12/24/22 Pineda Randhawa MD [address] [facility] [address] [place] [phone] Resident Rheumatology 02/04/23 Estee Peck MD [address] [facility] 3L DE[place] [address] Dermatology 02/04/23 documented as of this encounter
--- OUTSIDE RECORDS SUMMARY | 2024-07-15 18:37 | XMS_ITS | Encounter Summary ---
Author Organization [facility] Address [address] [place] [address] Care Team Providers Care Criminal Defense Attorney Name Role Phone Christa Velez HARVEY-HEAVY CLEANER Unavailable [phone] Oswaldo BOSCH MD, Francis G Primary Care Provider [phone] Morgan Randhawa MD Unavailable Pineda Randhawa MD Unavailable Will Naqvi MD Unavailable [phone] Pineda Randhawa MD Unavailable Estee Peck MD Unavailable [phone] Encounter Details Date Type Department Care Team (Latest Contact Info) Description 11/22/2023 9:35 AM CDT - 11/22/2023 11:59 PM CDT Hospital Encounter [facility] OP DRAW STATION [address] [place] [phone] Discharge Disposition: Home or Self Care Social [...] Description 10/21/2024 1:30 PM CDT Office Visit [facility] - Rheumatology [address] [place] [address] [phone] Paulino Youngblood MD [address] [place] [address] [place] [phone] 11/30/2024 3:00 PM CDT Office Visit [facility]ician [facility] - ENT [address] [place] [phone] Froilan Monae MD [address] [place] [address] [place] [address] 02/15/2025 10:00 AM CDT Office Visit [facility] - Internal Med [address] [place] [phone] Richard Chacon III, MD [address] [place] [address] 2L [place] [phone] documented as of this encounter Procedures Procedure Name Priority Date/Time Associated Diagnosis Comments QUANTIFERON-TB GOLD PLUS 4-TUBE Routine 11/22/2023 9:49 AM CDT Psoriatic arthritis (HCC) Psoriasis 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HCC) Screening-pulmonar y TB C-REACTIVE PROTEIN Routine 11/22/2023 9: 49 AM CDT Psoriatic arthritis (HCC) 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HCC) Psoriasis ERYTHROCYTE SEDIMENTATION RATE Routine 11/22/2023 9:49 AM CDT Psoriatic arthritis (HCC) 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HCC) Psoriasis CBC W AUTO DIFFERENTIAL Routine 11/22/2023 9:49 AM CDT Psoriatic arthritis (HCC) 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HCC) Psoriasis COMPREHENSIVE METABOLIC PANEL Routine 11/22/2023 9:49 AM CDT Psoriatic arthritis (HCC) 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HCC) Psoriasis documented in this encounter Results * ERYTHROCYTE SEDIMENTATION RATE (11/22/2023 9:49 AM CDT) Erythrocyte Sedimentation Rate Westergren 6 0 - 15 MM/HR 11/22/2023 10:16 AM CDT [facility] Blood BLOOD SPECIMEN / Unknown Lab Venipuncture / Unknown 11/22/2023 9:49 AM CDT 11/22/2023 10:01 AM CDT Will Naqvi MD LAB - HEMATOLOGY ORD ERABLES Performing Organization Address City/[facility]/ZIP Co de Phone Number [address] [address], [facility] [phone] * (ABNORMAL) C-REACTIVE PROTEIN (11/22/2023 9:49 AM CDT) [facility] C-Reactive Protein 0.7(H) <=0.5 mg/dL 11/22/2023 10:29 AM CDT [facility] Blood BLOOD SPECIMEN / Unknown Lab Venipuncture / Unknown 11/22/2023 9:49 AM CDT 11/22/2023 10:01 AM CDT Will Naqvi MD LAB - CHEMISTRY ORDE RABSARA [address] [address], [place] [phone] * (ABNORMAL) COMPREHENSIVE METABOLIC PANEL (11/22/2023 9:49 AM CDT) Pathologist [facility] [place] BUN 11 7 - 26 mg/dL 11/22/2023 10:29 AM CDT [facility] Creatinine 1.10 0.71 - 1.16 mg/dL 11/22/2023 10:29 AM CDT [facility] Sodium 138 136 - 145 mmol/L 11/22/2023 10:29 AM [facility] Potassium 3.9 3.5 - 4.5 mmol/L 11/22/2023 10:29 AM [facility] Chloride 109(H) 98 - 107 mmol/L 11/22/2023 10:29 AM [facility] CO2 22 22 - 29 mmol/L 11/22/2023 10:29 AM [facility] Glucose 172(H) 70 - 115 mg/dL 11/22/2023 10:29 AM [facility] Calcium 9.4 8.4 - 10.2 mg/dL 11/22/2023 10:29 AM [facility] Protein Total 6.6 6.0 - 8.3 g/dL 11/22/2023 10:29 AM [facility] Albumin 3.8 3.4 - 5.0 g/dL 11/22/2023 10:29 AM [facility] Bilirubin Total 0.3 0.2 - 1.2 mg/dL 11/22/2023 10:29 AM [facility] Alkaline Phosphatase 121 40 - 150 U/L 11/22/2023 10:29 AM [facility] ALT 49 5 - 55 U/L 11/22/2023 10:29 AM [facility] AST 17 5 - 34 U/L 11/22/2023 10:29 AM [facility] Anion Gap 7 6 - 16 11/22/2023 10:29 AM [facility] BUN/Creatinine Ratio 10 7 - 23 11/22/2023 10:29 AM [facility] Osmolality Calculated 289 275 - 295 mOsm/kg 11/22/2023 10:29 AM [facility] Albumin/Globulin Ratio 1.4 1.1 - 2.3 11/22/2023 10:29 AM [facility] eGFR by CKD-EPI >90 >=90 mL/min/1.7 3 m2 11/22/2023 10:29 AM [facility] Blood BLOOD SPECIMEN / Unknown Lab Venipuncture / Unknown 11/22/2023 9:49 AM [facility] 11/22/2023 10:01 AM CDT Will Naqvi MD LAB - CHEMISTRY ALEENA Toney Organization Address City/State/ZIP Co de Phone Number [facility] [address] [place] [address], [facility] [phone] * (ABNORMAL) CBC WITH DIFFERENTIAL (11/22/2023 9:49 AM CDT) WBC 5.9 4.0 - 10.7 x10E9/L 11/22/2023 10:09 AM [facility] RBC Count 4.46 4.30 - 5.80 x10E12/L 11/22/2023 10:09 AM [facility] Hemoglobin 12.7(L) 13.3 - 17.5 g/dL 11/22/2023 10:09 AM [facility] Hematocrit 37.3(L) 38.7 - 51.1 % 11/22/2023 10:09 AM [facility] MCV 83.6 80.0 - 98.0 fL 11/22/2023 10:09 AM [facility] MCH 28.5 26.7 - 33.6 pg 11/22/2023 10:09 AM [facility] MCHC 34.0 31.7 - 36.3 g/dL 11/22/2023 10:09 AM [facility] RDW-CV 13.3 11.3 - 14.8 % 11/22/2023 10:09 AM [facility] Platelet Count 195 150 - 420 x10E9/L 11/22/2023 10:09 AM [facility] MPV 9.7 7.8 - 11.4 fL 11/22/2023 10:09 AM [facility] Neutrophil % 71.2 41.0 - 74.0 % 11/22/2023 10:09 AM [facility] Lymphocyte % 21.5 17.0 - 47.0 % 11/22/2023 10:09 AM [facility] Monocyte % 3.8 3.0 - 11.0 % 11/22/2023 10:09 AM [facility] Eosinophil % 1.9 0.0 - 7.0 % 11/22/2023 10:09 AM CDT [facility] Basophil % 0.7 0.0 - 1.6 % 11/22/2023 10:09 AM CDT [facility] Immature Granulocytes % 0.9 0.0 - 1.0 % 11/22/2023 10:09 AM T [facility] Neutrophil Absolute 4.18 1.60 - 7.50 x10E9/L 11/22/2023 10:09 AM CDT [facility] Lymphocyte Absolute 1.26 1.00 - 4.40 x10E9/L 11/22/2023 10:09 AM T [facility] Monocyte Absolute 0.22 0.15 - 1.00 x10E9/L 11/22/2023 10:09 AM T [facility] Eosinophil Absolute 0.11 0.00 - 0.60 x10E9/L 11/22/2023 10:09 AM T [facility] Basophil Absolute 0.04 0.00 - 0.13 x10E9/L 11/22/2023 10:09 AM T [facility] Blood BLOOD SPECIMEN / Unknown Lab Venipuncture / Unknown 11/22/2023 9:49 AM CDT 11/22/2023 10:01 AM CDT Will Naqvi MD LAB - HEMATOLOGY ORD ERABLES [facility] [address] [place] [address], [facility] [phone] * QUANTIFERON-TB GOLD PLUS 4-TUBE (11/22/2023 9:49 AM CDT) Pathologist [facility] [place] QuantiFERON Mitogen Minus NIL 9.99 IU/mL 11/27/2023 8:48 PM CDT [facility]) QuantiFERON Nil Value 0.01 IU/mL 11/27/2023 8:48 PM CDT [facility] ([facility]) QuantiFERON Plus TB1 Minus NIL 0.02 <=0.34 IU/mL 11/27/2023 8:48 PM CDT [facility] ([facility]) QuantiFERON Plus TB2 Minus NIL 0.03 <=0.34 IU/mL 11/27/2023 8:48 PM CDT [facility] ([facility]) QuantiFERON-TB Gold Plus Negative Negative 11/27/2023 8:48 PM CDT [facility] ([facility]) Comment: INTERPRETIVE INFORMATION:Quantiferon TB Gold Plus Interferon [...] Mycobacterium tuberculosis Infection -- [place], 2010 (http://www.cdc.gov/mmwr/preview/mmwrhtml/tq0529b1.htm), for more information concerning test performance in low-prevalence populations and use in occupational screening. Performed By: [facility] [address] [place] [address] Mimeograph Operator: Woo Bee MD, PhD CLIA Number: [id number] Blood BLOOD SPECIMEN / Unknown Lab Venipuncture / Unknown 11/22/2023 9:49 AM CDT 11/22/2023 9:57 AM CDT Guillermo Galicia MD LAB - CHEMISTRY ALEENA HERNANDEZ [employer] [facility]) [address] [place] [address], [facility] documented in this encounter Visit Diagnoses Diagnosis Psoriatic arthritis (HCC) Psoriatic arthropathy Psoriasis Other psoriasis 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HCC) Screening-pulmonary TB Screening examination for pulmonary tuberculosis documented in this encounter Care Teams Criminal Defense Attorney Relationship Specialty Start Date End Date Richard Chacon III, MD [address] [place] [phone] PCP - General Internal Medicine 01/29/22 Christa Velez APRN-HEAVY CLEANER [address] [place] [phone] Psychiatrist Nurse Practitioner 08/07/21 Morgan Randhawa MD [address] [place] [place] [phone] Resident - PCP Internal Medicine 01/29/22 Pineda Randhawa MD [address] [place] [phone] Resident Rheumatology 12/24/22 Will Naqvi MD [address] [place] [address] Excelsior Machine Operator Rheumatology 12/24/22 Pineda Randhawa MD [address] [place] [phone] Resident Rheumatology 02/04/23 Estee Peck MD [address] [place] [address] Dermatology 02/04/23 documented as of this encounter
--- OUTSIDE RECORDS SUMMARY | 2024-07-15 18:37 | XMS_ITS | Encounter Summary ---
Author Organization [facility] Health Address [address] [place] [address] Care Team Providers Care Ladle Repairer Name Role Phone Christa Velez HARVEY-SPECIAL EDUCATION TEACHING ASSISTANT Unavailable [phone] Oswaldo BOSCH MD, Richard Sanchez Primary Care Provider [phone] Morgan Randhawa MD Unavailable Pineda Randhawa MD Unavailable Will Naqvi MD Unavailable [phone] Pineda Randhawa MD Unavailable Estee Peck MD Unavailable [phone] Encounter Details Date Type Department Care Team (Latest Contact Info) Description 03/21/2023 Travel Social History Tobacco Use Types Packs/Day [...] Office Visit [facility] - Rheumatology [address] [place] [address] [place] [phone] Paulino Youngblood MD [address] [place] [address] [place] [phone] 11/30/2024 3:00 PM CDT Office Visit [facility] - ENT [address] [place] [phone] Froilan Monae MD [address] [place] [address] 2L [place] [address] 02/15/2025 10:00 AM CDT Office Visit [facility] - Internal Med [address] [place] [phone] Richard Chacon III, MD [address] [place] [address] 2L [place] [address] documented as of this encounter Visit Diagnoses Not on filedocumented in this encounter Care Teams Ladle Repairer Relationship Specialty Start Date End Date Richard Chacon III, MD [address] [place] [address] 2[address] [place] [address] PCP - General Internal Medicine 01/29/22 Christa Velez APRN-SPECIAL EDUCATION TEACHING ASSISTANT [address] [phone] Psychiatrist Nurse Practitioner 08/07/21 Morgan Randhawa MD [address] [place] [address] [place] [phone] Resident - PCP Internal Medicine 01/29/22 Pineda Randhawa MD [address] [place] [address] [place] [phone] Resident Rheumatology 12/24/22 Will Naqvi MD [address] [place] [address] Meter Technician Rheumatology 12/24/22 Pineda Randhawa MD [address] [place] [phone] Resident Rheumatology 02/04/23 Estee Peck MD [address] [place] [address] Dermatology 02/04/23 documented as of this encounter
--- OUTSIDE RECORDS SUMMARY | 2024-07-15 18:37 | XMS_ITS | Encounter Summary ---
Author Organization [facility] Address [address] [place] [address] Care Team Providers Care Sap Bobj Developer Name Role Phone Christa Velez APRN-MILITARY SOURCE OPERATIONS OFFICER Unavailable [phone] Oswaldo BOSCH MD, Francis G Primary Care Provider [phone] Morgan Randhawa MD Unavailable Pineda Randhawa MD Unavailable Will Naqvi MD Unavailable Pineda Randhawa MD Unavailable Estee Peck MD Unavailable Oswaldo BOSCH MD, Francis G Unavailable Encounter Details Date Type Department Care Team (Latest Contact Info) Description 12/18/2023 Travel Social History Tobacco Use Types Packs/Day [...] Encounters Date Type Department Care Team (Late Contact Info) Description 10/21/2024 1:30 PM CDT Office Visit [facility] - Rheumatology [address] [place] [phone] Paulino Yuongblood MD [address] [place] [address] [place] [phone] 11/30/2024 3:00 PM CDT Office Visit [facility] - ENT [address] [place] [phone] Froilan Monae MD [address] [place] [address] [place] [address] 02/15/2025 10:00 AM CDT Office Visit [facility] - Internal Med [address] [place] [phone] Richard Chacon III, MD [address] [place] [address] [place] [phone] documented as of this encounter Visit Diagnoses Not on filedocumented in this encounter Care Teams Sap Bobj Developer Relationship Specialty Start Date End Date Richard Chacon III, MD [address] [place] [address] [place] [phone] PCP - General Internal Medicine 01/29/22 Richard Chacon III, MD [address] [place] [address] 2L [place] [phone] PCP - [facility] 11/23/23 Christa Velez APRN-MILITARY SOURCE OPERATIONS OFFICER [address] Juve Rust [address] [place] [phone] Psychiatrist Nurse Practitioner 08/07/21 Morgan Randhawa MD [address] [place] [address] [place] [phone] Resident - PCP Internal Medicine 01/29/22 Pineda Randhawa MD [address] [facility] [place] [phone] Resident Rheumatology 12/24/22 Will Naqvi MD [address] [facility] [address]L [place] [phone] Traffic Workforce Representative Rheumatology 12/24/22 Pineda Randhawa MD [address] [facility] [address] [place] [phone] Resident Rheumatology 02/04/23 Estee Peck MD [address] [facility] 3L [place] [address] Dermatology 02/04/23 documented as of this encounter
--- OUTSIDE RECORDS SUMMARY | 2024-07-15 18:37 | XMS_ITS | Encounter Summary ---
Author Organization [facility] Address [address] [facility] [place] [address] Care Team Providers Care Nut Sorter Name Role Phone Christa Velez HARVEY-MANAGER BUSINESS CONTINUITY Unavailable [phone] Oswaldo BOSCH MD, Richard Sanchez Primary Care Provider [phone] Morgan Randhawa MD Unavailable Pineda Randhawa MD Unavailable Will Naqvi MD Unavailable Pineda Randhawa MD Unavailable Estee Peck MD Unavailable Reason for Visit * Reason Comments Refill Request Encounter Details Date Type Department Care Team (Late st Contact Info) Description 04/12/2023 Refill [facility] [place] [address] Pineda Randhawa MD [address] [place] [phone] Refill Request Social History Tobacco Use [...] Office Visit [facility] - Rheumatology [address] [place] [phone] aPulino Youngblood MD [address] [place] [address] [place] [phone] 11/30/2024 3:00 PM CDT Office Visit [facility] - ENT [address] [place] [phone] Froilan Monae MD [address] [place] [address] [place] [address] 02/15/2025 10:00 AM CDT Office Visit [facility] - Internal Med [address] [place] [phone] Richard Chacon III, MD [address] [place] [address] 2L [place] [address] documented as of this encounter Visit Diagnoses Not on filedocumented in this encounter Care Teams Nut Sorter Relationship Specialty Start Date End Date Richard Chacon III, MD [address] [place] [address] 2L [place] [phone] PCP - General Internal Medicine 01/29/22 Christa Velez APRN-MANAGER BUSINESS CONTINUITY [address] Juve Rust [address] [place] [phone] Psychiatrist Nurse Practitioner 08/07/21 Morgan Randhawa MD [address] [place] [address] [place] [phone] Resident - PCP Internal Medicine 01/29/22 Pineda Randhawa MD [address] [facility] [place] [phone] Resident Rheumatology 12/24/22 Will Naqvi MD [address] [facility] 2L [place] [phone] Rn Hemodialysis Charge Rheumatology 12/24/22 Pineda Randhawa MD [address] [facility] [address] [place] [phone] Resident Rheumatology 02/04/23 Estee Peck MD [address] [facility] 3L [place] [address] Dermatology 02/04/23 documented as of this encounter
--- OUTSIDE RECORDS SUMMARY | 2024-07-15 18:37 | XMS_ITS | Encounter Summary ---
Author Organization [facility] Health Address [address] [facility] [place] [address] Care Team Providers Care Search Advertising Strategist Name Role Phone Christa Velez HARVEY-YEAST CULTURE DEVELOPER Unavailable [phone] Oswaldo BOSCH MD, Richard Sanchez Primary Care Provider [phone] Morgan Randhawa MD Unavailable Pineda Randhawa MD Unavailable Will Naqvi MD Unavailable [phone] Pineda Randhawa MD Unavailable Estee Peck MD Unavailable [phone] Encounter Details Date Type Department Care Team (Latest Contact Info) Description 07/24/2023 Travel Social History Tobacco Use Types Packs/Day [...] Office Visit [facility] - Rheumatology [address] [place] [address] [place] [phone] Paulino Youngblood MD [address] [place] [address] [place] [phone] 11/30/2024 3:00 PM CDT Office Visit [facility] - ENT [address] [place] [phone] Froilan Monae MD [address] [place] [address] 2L [place] [address] 02/15/2025 10:00 AM CDT Office Visit [facility] - Internal Med [address] [place] [phone] Richard Chacon III, MD [address] [place] [address] 2[place] [address] documented as of this encounter Visit Diagnoses Not on filedocumented in this encounter Care Teams Search Advertising Strategist Relationship Specialty Start Date End Date Richard Chacon III, MD [address] [place] [address] 2[place] [address] PCP - General Internal Medicine 01/29/22 Christa Velez APRN-YEAST CULTURE DEVELOPER [address] [phone] Psychiatrist Nurse Practitioner 08/07/21 Morgan Randhawa MD [address] [place] [address] [place] [phone] Resident - PCP Internal Medicine 01/29/22 Pineda Randhawa MD [address] [place] [address] [place] [phone] Resident Rheumatology 12/24/22 Will Naqvi MD [address] [facility] [address] [place] [address] Transplant Rn Rheumatology 12/24/22 Pineda Randhawa MD [address] [place] [phone] Resident Rheumatology 02/04/23 Estee Peck MD [address] [facility] [address] [place] [address] Dermatology 02/04/23 documented as of this encounter
--- OUTSIDE RECORDS SUMMARY | 2024-07-15 18:37 | XMS_ITS | Encounter Summary ---
Author Organization [facility] Address [address] [facility] [place] [address] Care Team Providers Care Cigar Sorter Name Role Phone Christa Velez APRN-WHOLESALE DIAMOND BROKER Unavailable Oswaldo BOSCH MD, Francis G Primary Care Provider [phone] Morgan Randhawa MD Unavailable Pineda Randhawa MD Unavailable Will Naqvi MD Unavailable Pineda Randhawa MD Unavailable Estee Peck MD Unavailable Oswaldo BOSCH MD, Francis G Unavailable Reason for Visit * Reason Comments Ear Problem Encounter Details Date Type Department Care Team (Late st Contact Info) Description 06/01/2024 2:30 PM MEDICAL ANTHROPOLOGY DIRECTOR Office Visit [facility] - ENT [address] [place] [phone] Froilan Monae MD [address] [place] [address] [place] [address] Dysfunction of both eustachian tubes (Primary Dx); Perforation of both tympanic membranes; Chronic diffuse otitis externa of both ears; Impacted cerumen of left ear; Foreign body of left ear, initial encounter Social History Tobacco Use Types Packs/Day Years [...] Comments Blood Pressure 113/78 06/01/2024 2:32 PM MEDICAL ANTHROPOLOGY DIRECTOR Pulse 98 06/01/2024 2:32 PM MEDICAL ANTHROPOLOGY DIRECTOR Temperature - - Respiratory Rate - - Oxygen Saturation - - Inhaled Oxygen Concentration - - Weight 120.8 kg (266 lb 6.4 oz) 06/01/2024 2:32 PM MEDICAL ANTHROPOLOGY DIRECTOR Height 170.2 cm (5' 7 ) 06/01/2024 2:32 PM MEDICAL ANTHROPOLOGY DIRECTOR Body Mass Index 41.72 06/01/2024 2:32 PM MEDICAL ANTHROPOLOGY DIRECTOR documented in this encounter Patient Instructions * Patient Instructions* Meli Cruz MA - 06/01/2024 8:18 AM MEDICAL ANTHROPOLOGY DIRECTOR Thank you for visiting [facility] Otolaryngology - Head & Neck Surgery. We appreciate your confidence in allowing us to participate in your health care. You may receive a survey about your visit with us today. Making our patients happy isn???t just happy talk; it???s ourmission. Please tell us if we made the right impression on you- and how we can serve you better. Please SAVE the information below, it will assist you when it???s time for you to contact us. To MAKE - CHANGE - CANCEL an office appointment If you become ill, need to be seen before your next scheduled appointment, or need to cancel or reschedule an appointment, please call our office at [phone] Saturday through Saturday from 8:00 am to4:30 pm. You can also request a routine appointment through your [employer] account. Prescription Refills Contact your pharmacy to request all refills. The pharmacy will need to fax the request to us at . Please allow a minimum of 48-72 hours for your prescription to be completed. Medical Emergency / After Hours Contact Information If you have a medical emergency, please call 911 or go to the nearest emergency room. For urgent medical calls, which cannot wait until the office opens, please call the medical exchange at and ask the surveillance sensor operator to page the ENT physician belt conveyor drier. *Caller ID blocking service will need to be turned off for your call to be returned. We also specialize in Hearing Aids, Allergy testing, swallowing disorders, voice problems, cancer diagnosis, and so much more. Visit our website at [email or web address] for information about our practice and an interactive health encyclopedia. CAL ANTHROPOLOGY DIRECTOR documented in this encounter Progress Notes * Froilan Monae MD - 06/01/2024 2:42 PM CST History of Present Illness: 28 year old on disability with a h/o migraines, bipolar AU ETD, s/p PET at least once around age 6,now with AU TM perf, uses hearing aids AU Is in today with his mom. Notes his hearing aid mold is been stuck in the left ear for a couple of days. This was removed along with underlying cerumen impaction both under the operating microscope. There is some bleeding in the ear canal which she has noticed. There is a laceration of the inferiorcanal which is mild blood with suction. Boric acid powder placed for treatment. He will leave the hearing aid out for about a week OE treated. Using hearing aids and wants to continue on with that , f/u 6 m sooner if issues He has had mild bother from his hearing loss and thinks it may have gotten worse over the last few months. No drainage from the ears. No head imaging in [facility] Epic No recent relevant records in media [...] BY MOUTH AT BEDTIME 90 tablet 11 metFORMIN ER 24hr (Glucophage XR) 500 MG tablet Take 1 (one) tablet by mouth every evening 180 tablet 3 naproxen (Naprosyn) 500 MG tablet Take 1 (one) tablet by mouth 2 times daily 120 tablet 1 olanzapine (ZYPREXA) 10 MG tablet Take 1 (one) tablet by mouth once daily secukinumab (Cosentyx Sensoready, 300 MG,) 150 MG/ML SOAJ pen Inject 300 (three hundred) mg subcutaneously every 28 days 6 mL 3 SUMAtriptan (Imitrex) 100 MG tablet Take 1 (one) tablet by mouth as needed for Migraine topiramate (Topamax) 100 MG tablet Take 1 (one) tablet by mouth 2 times daily venlafaxine XR 24hr (Effexor XR) 37.5 MG capsule Take 1 (one) capsule by mouth daily with breakfast vitamin D3 (Cholecalciferol) 25 MCG (1000 UNITS) tablet Take 1 (one) tablet by mouth once daily No current facility-administered medications for this visit. Allergies Food Social History Social History Socioeconomic History Marital status: Single Tobacco Use Smoking status: Never Smokeless tobacco: Never Vaping Use Vaping status: Never Used Substance and Sexual Activity Alcohol use: No Drug use: No Family History Family History Problem Relation Name Age of Onset Bipolar Disorder Father Diabetes - Type 2 Father Psoriasis Father weekly malcolm Bipolar Disorder Sister Diabetes - Type 2 Sister Vitals BP 113/78 (BP Location: Left arm, Patient Position: Sitting, BP Cuff Size: Large adult) Pulse 98 Ht 1.702 m (5' 7 ) Wt 120.8 kg (266 lb 6.4 oz) Body mass index is 41.72 kg/m??. Physical Exam: Constitutional: Alert, No acute [...] 1. Right stable eustachian tube dysfunction with stable tympanic membrane perforation and associated mixed hearing loss. 2. Left stable eustachian tube dysfunction with stable tympanic membrane perforation associated mixed hearing loss. 3. AU stable OE due to combination of hearing aid [...] and Skull Base Surgery Department of Otolaryngology CAL ANTHROPOLOGY DIRECTOR documented in this encounter Procedure Notes * Froilan Monae MD - 06/01/2024 3:18 PM CSTAssociated Order(s): PROC CERUMEN REMOVAL Procedure(s): SD REMOVE CERUMEN IMPACTED W INSTR LEFT EAR Pre-Procedure Diagnose(s): Impacted cerumen of left ear Post-Procedure Diagnose(s): Impacted cerumen of left ear Procedure: Binocular Microscopic Removal of Impacted Cerumen with debridement [...] There was no bleeding Froilan Monae MD CAL ANTHROPOLOGY DIRECTOR documented in this encounter Plan of Treatment Upcoming Encounters Date Type Department Care Team (Late st Contact Info) Description 10/21/2024 1:30 PM CDT Office Visit [facility] - Rheumatology [address] [place] [phone] Paulino Youngblood MD [address] [place] [address] [place] [address] 11/30/2024 3:00 PM CDT Office Visit [facility] - ENT [address] [place] [address] [phone] Froilan Monae MD [address] [place] [address] [place] [address] 02/15/2025 10:00 AM CDT [facility] Med [address] [place] [phone] Richard Chacon III, MD [address] [place] [phone] documented as of this encounter Procedures Procedure Name Priority Date/Time Associated Diagnosis Comments SD REMOVE CERUMEN IMPACTED W INSTR LEFT EAR Routine 06/01/2024 3:18 PM MEDICAL ANTHROPOLOGY DIRECTOR Impacted cerumen of left ear documented in this encounter Results * SD REMOVE CERUMEN IMPACTED W INSTR LEFT EAR (06/01/2024 3:18 PM MEDICAL ANTHROPOLOGY DIRECTOR) Narrative Froilan Monae MD - 06/01/2024 3:18 PM MEDICAL ANTHROPOLOGY DIRECTOR Froilan Monae MD ? 06/01/2024 ??3:19 PM [...] documented in this encounter Visit Diagnoses Diagnosis Dysfunction of both eustachian tubes- Primary Dysfunction of Eustachian tube Perforation of both tympanic membranes Perforation of tympanic membrane, unspecified Chronic diffuse otitis externa of both ears Impacted cerumen of left ear Impacted cerumen Foreign body of left ear, initial encounter documented in this encounter Care Teams Cigar Sorter Relationship Specialty Start Date End Date Richard Chacon III, MD [address] [place] [phone] PCP - General Internal Medicine 01/29/22 Richard Chacon III, MD [address] [place] [phone] PCP - Attributed-[facility] NIYAH SALCIDO P4P 11/23/23 Christa Velez APRN-WHOLESALE DIAMOND BROKER [address] [place] [phone] Psychiatrist Nurse Practitioner 08/07/21 Morgan Randhawa MD [address] [facility] [place] [place] [phone] Resident - PCP Internal Medicine 01/29/22 Pineda Randhawa MD [address] [facility] [place] [address] Resident Rheumatology 12/24/22 Will Naqvi MD [address] [facility] [address]L [place] [phone] Sewing Department Supervisor Rheumatology 12/24/22 Pineda Randhawa MD [address] [place] [phone] Resident Rheumatology 02/04/23 Estee Peck MD [address] [facility] 3L DEPT OF DERMATOLOGY [place], [place] [phone] Dermatology 02/04/23 documented as of this encounter
--- OUTSIDE RECORDS SUMMARY | 2024-07-15 18:37 | XMS_ITS | Encounter Summary ---
Author Organization [facility] Address [address] [facility] [place] [address] Care Team Providers Care Hand Splitter Name Role Phone Christa Velez HARVEY-PAPER RECLAIMING MACHINE OPERATOR Unavailable [phone] Oswaldo BOSCH MD, Richard Sanchez Primary Care Provider [phone] Morgan Randhawa MD Unavailable Pineda Randhawa MD Unavailable Will Naqvi MD Unavailable Pineda Randhawa MD Unavailable Estee Peck MD Unavailable Reason for Visit * Reason Comments Refill Request Encounter Details Date Type Department Care Team (Late st Contact Info) Description 08/23/2023 Refill [facility] - Rhe[facility]ology [facility], [place] [phone] Pineda Randhawa MD [address] [facility] [place] [phone] Refill Request Social History Tobacco Use [...] Miscellaneous Notes * Telephone Encounter - Florence Guzmán, RN - 08/23/2023 4:30 PM CST Refill Request Manoj Horner UVALDO: 07/24/23 NOV due: NOV scheduled: Visit date not found (new fellow / ZA) LRF: 05/10/23 Qty Disp: 2 # of refills: 3 Allergies: Allergies Allergen Reactions ??? Food Headache Spaghetti sauce and mozzarella cheese Pended Medication Order: Requested Prescriptions Pending Prescriptions Disp Refills ??? Cosentyx Sensoready, 300 MG, 150 MG/ML SOAJ pen [Pharmacy Med Name: COSENTYX 150MG/ML SENSRDY PEN 2X1ML] 2 mL 3 Sig: INJECT 300MG UNDER THE SKIN EVERY 28 DAYS CUTTER documented in this encounter Plan of Treatment Upcoming Encounters Date Type Department Care Team (Late st Contact Info) Description 10/21/2024 1:30 PM CDT Office Visit [facility] - Rheumatology [address] [place] [phone] Paulino Youngblood MD [address] [place] [address] [place] [phone] 11/30/2024 3:00 PM CDT [facility] [address] [place] [phone] Froilan Monae MD [address] [place] [address] [place] [address] 02/15/2025 10:00 AM CDT Office Visit [facility] - Internal Med [address] [place] [phone] Richard Chacon III, MD [address] [place] [address] [place] [phone] documented as of this encounter Visit Diagnoses Diagnosis Psoriatic arthritis (HCC)- Primary Psoriatic arthropathy documented in this encounter Care Teams Hand Splitter Relationship Specialty Start Date End Date Richard Chacon III, MD [address] [place] [phone] PCP - General Internal Medicine 01/29/22 Christa Velez APRN-PAPER RECLAIMING MACHINE OPERATOR [address] [phone] Psychiatrist Nurse Practitioner 08/07/21 Morgan Randhawa MD [address] [facility] [place] [phone] Resident - PCP Internal Medicine 01/29/22 Pineda Randhawa MD [address] [facility] [phone] Resident Rheumatology 12/24/22 Will Naqvi MD [address] [place] [phone] Mechanical Handyman Rheumatology 12/24/22 Pineda Randhawa MD [address] [facility] [address] [place] [address] Resident Rheumatology 02/04/23 Estee Peck MD [address] [facility] [address] [place] [address] Dermatology 02/04/23 documented as of this encounter
--- OUTSIDE RECORDS SUMMARY | 2024-07-15 18:37 | XMS_ITS | Referral Summary ---
Author Organization [facility] Address [address] [facility] [place] [address] Care Team Providers Care Supervisor Home Energy Consultant Name Role Phone Christa Velez APRN-MONORAIL HOOKER Unavailable [phone] Oswaldo BOSCH MD, Francis G Primary Care Provider [phone] Morgan Randhawa MD Unavailable Pineda Randhawa MD Unavailable Will Naqvi MD Unavailable Pineda Randhawa MD Unavailable Estee Peck MD Unavailable Oswaldo BOSCH MD, Francis G Unavailable Source Comments [facility],non-owned Affiliates and Associated Physician Practices is amultiple site organization consisting of ambulatory clinics and hospital sitesin [place], [place], [place] and [place]. This disclosure is being madepursuant to the Care Everywhere program and may not contain all information available regarding this patient. Last updated 18.[facility] Encounters Date Type Department Care Team Description 06/07/2024 Refill [facility] - Rheumatology [address] [place] [address], [place] [address] Paulino Youngblood MD Refill Request 06/01/2024 2:30 PM BRAND MGR Office Visit [facility] [address] [place] [address] Froilan Monae MD Dysfunction of both eustachian tubes (Primary Dx); Perforation of both tympanic membranes; Chronic diffuse otitis externa of both ears; Impacted cerumen of left ear; Foreign body of left ear, initial encounter 06/01/2024 Travel from Last 3 Months Allergies Active Allergy Reactions Criticality Noted Date Comments Food Headache Low 10/24/2015 Spaghetti sauce and mozzarella cheese Medications * Be aware that medications may not be up to date on this document. Alwaysverify current medications with the patient. Medication Sig Dispensed Refills Start Date End Date Status olanzapine (ZYPREXA) 10 MG tablet Take 1 (one) tablet by mouth once daily Active buPROPion SR 12hr (WELLBUTRIN SR) 200 MG tablet Take 1 (one) tablet by mouth 2 times daily 03/06/2021 Active citalopram (CELEXA) 40 MG tablet TAKE 1 TABLET BY MOUTH EVERY DAY IN THE MORNING 03/08/2021 Active ketoconazole (NIZORAL) 2 % shampooIndication s:Other psoriasis Apply to wet hair, leave on for 3 minutes, then rinse; three times weekly. 30 days supply 120 mL 11 04/17/2021 Active folic acid (FOLVITE) 1 MG tabletIndications :Other psoriasis Take 1 daily except the day you take methotrexate 30 tablet 11 07/07/2021 Active calcipotriene (DOVONEX) 0.005 % creamIndications: Other psoriasis Apply to affected area 2 times daily 60 g 3 10/16/2021 Active clobetasol (TEMOVATE) 0.05 % ointmentIndicatio ns:Other psoriasis APPLY TOPICALLY TO AFFECTED AREA(S) OF KNEES AND ELBOWS TWICE DAILY 60 g 3 10/16/2021 Active vitamin D3 (Cholecalciferol) 25 MCG (1000 UNITS) tablet Take 1 (one) tablet by mouth once daily 05/06/2022 Active melatonin 3 MG tablet TAKE 1 TABLET BY MOUTH AT BEDTIME 90 tablet 11 04/23/2023 Active metFORMIN ER 24hr (Glucophage XR) 500 MG tabletIndications :Prediabetes Take 1 (one) tablet by mouth every evening 180 tablet 3 02/12/2024 Active secukinumab (Cosentyx Sensoready, 300 MG,) 150 MG/ML SOAJ penIndications:Ps oriatic arthritis (HCC) Inject 300 (three hundred) mg subcutaneously every 28 days 6 mL 3 04/01/2024 Active SUMAtriptan (Imitrex) 100 MG tablet Take 1 (one) tablet by mouth as needed for Migraine 02/18/2024 Active venlafaxine XR 24hr (Effexor XR) 37.5 MG capsule Take 1 (one) capsule by mouth daily with breakfast 05/22/2024 Active topiramate (Topamax) 100 MG tablet Take 1 (one) tablet by mouth 2 times daily 02/17/2024 Active naproxen (Naprosyn) 500 MG tablet TAKE 1 TABLET BY MOUTH TWICE DAILY 120 tablet 1 06/08/2024 Active Active Problems Problem Noted Date Diagnosed Date Class 2 obesity with body ma ss index (BMI) of 37.0 to 37.9 in adult 01/29/2022 Psoriatic arthritis 01/29/2022 Immunizations Name Administration Dates Next Due Covid Moderna primary monova lent 12+ yr 0.5mL 07/24/2021 Covid Pfizer primary monoval ent 12+ yr 0.3mL Purple cap 10/13/2020,09/22/2020 DTP 04/06/1998, 8,04/23/1997,03/08 DTaP VACCINE IM (6wk-6yrs) 10/20/2002 HEP B VACCINE, PED/ADOL 07/26/1997,02/03/1997, Human Papilloma Virus Marci valent Vaccine 07/14/2010,03/14/2010,12/01/2009 INFLUENZA VACCINE, QUADR. (F LUZONE; FLULAVAL; FLUARIX; AFLURIA QUADRIVALENT; 6MO+), 0.5 ML (IIV4) 03/18/2020,03/26/2018,05/30/2015 MENINGOCOCCAL CONJUGATE (MCV4P) 12/21/2013 MENINGOCOCCAL VACCINE 12/01/2009 MMR 10/20/2002,01/04/1998 PNEUMOCOCCAL PCV20 CONJ VAC IM 02/04/2023 POLIO IPV 10/20/2002, 8,04/23/1997,03/08 TDAP (7yrs+) 04/03/2021 VARICELLA 03/14/2010,12/01/2009 iNFLUENZA VACCINE, RECOM-AN, QUADR. (FLUBLOCK QUADRIVALENT; 18Y+) (RIV4) 06/06/2022,04/03/2021 Social History Tobacco Use Types Packs/Day Years [...] Comments Blood Pressure 113/78 06/01/2024 2:32 PM BRAND MGR Pulse 98 06/01/2024 2:32 PM BRAND MGR Temperature 37.1 ??C (98.7 ??F) 02/12/2024 1:37 PM CD T Respiratory Rate 18 03/19/2022 2:48 PM CDT Oxygen Saturation 96% 02/12/2024 1:37 PM CDT Inhaled Oxygen Concentration - - Weight 120.8 kg (266 lb 6.4 oz) 06/01/2024 2:32 PM BRAND MGR Height 170.2 cm (5' 7 ) 06/01/2024 2:32 PM BRAND MGR Body Mass Index 41.72 06/01/2024 2:32 PM BRAND MGR Plan of Treatment Upcoming Encounters Date Type Department Care Team (Late st Contact Info) Description 10/21/2024 1:30 PM CDT Office Visit [facility] - Rheumatology [address] [place] [phone] Paulino Youngblood MD [address] [place] [address] [place] [address] 11/30/2024 3:00 PM CDT Office Visit [facility] - ENT [address] [place] [phone] Froilan Monae MD [address] [place] [address] [place] [address] 02/15/2025 10:00 AM CDT Office Visit [facility] - Internal Med [address] [place] [address], [place] [phone] Richard Chacon III, MD [address] [place] [address] 2L [place] [phone] Procedures Procedure Name Priority Date/Time Associated Diagnosis Comments CA REMOVE CERUMEN IMPACTED W INSTR LEFT EAR Routine 06/01/2024 3:18 PM BRAND MGR Impacted cerumen of left ear HIV-1 HIV-2 ANTIBODY + HIV P24 AG PANEL Routine 07/24/2023 2:25 PM BRAND MGR Routine general medical examination at health care facility HEPATITIS C AB W/RFLX TO HCV RNA QN PCR Routine 07/05/2021 11:11 AM BRAND MGR High risk medications (not anticoagulants) long-term use from Last 3 Months or Most Recently Relevant to Health Maintenance Results * CA REMOVE CERUMEN IMPACTED W INSTR LEFT EAR (06/01/2024 3:18 PM BRAND MGR) Narrative Froilan Monae MD - 06/01/2024 3:18 PM BRAND MGR Froilan Monae MD ? 06/01/2024 ??3:19 PM [...] Monae MD PROCEDURE/MINOR JAJA GICAL ORDERABLES * HIV-1 HIV-2 ANTIBODY + HIV P24 AG PANEL (07/24/2023 2:25 PM BRAND MGR) HIV Antigen/Antibod y 1 & 2 Non-reacti ve Non-react brian 07/24/2023 3:43 PM BRAND MGR [facility] Comment:No Laboratory eviden ce of HIV infection. Blood BLOOD SPECIMEN / Unknown Lab Venipuncture / Unknown 07/24/2023 2:25 PM BRAND MGR 07/24/2023 2:56 PM BRAND MGR Richard Chacon III, MD LAB - CHEMISTRY [facility]i [facility] [address] [place] [address], [facility] [phone] * HEPATITIS C AB W/RFLX TO HCV RNA QN PCR (07/05/2021 11:11 AM BRAND MGR) Hepatitis C Antibody NON-REACTI VE NON-REACT [facility] Signal to Cut-Off 0.01 <1.00 [facility] Comment: HCV antibody was non-reactive. There is no laboratory evidence of HCV infection. In most cases, no further action is required. However, if recent HCV exposure is suspected, a test for HCV RNA (test code 35282) is suggested. For additional information please refer to http://education.[employer]/faq/UXI33i6 (This link is being provided for informational/ educational purposes only.) REPORT COMMENT: FASTING:NO Test Performed at: [facility] [address] [place], [place] ??[address] SIRIA AGUILAR DO,MPH Blood BLOOD SPECIMEN / Unknown 07/05/2021 11:11 AM BRAND MGR 07/05/2021 11:12 AM BRAND MGR Estee Peck MD LAB - CHEMISTRY [facility]NANDE[facility] [address] [place] [address] from Last 3 Months or Most Recently Relevant to Health Maintenance Care Teams Supervisor Home Energy Consultant Relationship Specialty Start Date End Date Richard Chacon III, MD [address] [place] [phone] PCP - General Internal Medicine 01/29/22 Richard Chacon III, MD [address] [place] [phone] PCP - Attributed-[facility] NIYAH SALCIDO P4P 11/23/23 Christa Velez APRN-MONORAIL HOOKER [address] [place] [phone] Psychiatrist Nurse Practitioner 08/07/21 Morgan Randhawa MD [address] [place] [phone] Resident - PCP Internal Medicine 01/29/22 Pineda Randhawa MD [address] [place] [phone] Resident Rheumatology 12/24/22 Will Naqvi MD [address] [place] [phone] Product Assembler Rheumatology 12/24/22 Pineda Randhawa MD [address] [facility] [address] [place] [phone] Resident Rheumatology 02/04/23 Estee Peck MD [address] [place] [address] Dermatology 02/04/23
--- OUTSIDE RECORDS SUMMARY | 2024-07-15 18:37 | XMS_ITS | Encounter Summary ---
Author Organization [facility] Health Address [address] [facility] [facility] [place] [address] Care Team Providers Care Metal Spray Operator Name Role Phone Christa Velez HARVEY-EVP SALES Unavailable [phone] Oswaldo BOSCH MD, Richard Sanchez Primary Care Provider [phone] Morgan Randhawa MD Unavailable Pineda Randhawa MD Unavailable Will Naqvi MD Unavailable [phone] Pineda Randhawa MD Unavailable Estee Peck MD Unavailable [phone] Encounter Details Date Type Department Care Team (Latest Contact Info) Description 10/17/2023 Travel Social History Tobacco Use Types Packs/Day [...] Office Visit [facility] - Rheumatology [address] [place] [address] [place] [phone] Paulino Youngblood MD [address] [place] [address] DIV [place] [phone] 11/30/2024 3:00 PM CDT Office Visit [facility] - ENT [address] [place] [phone] Froilan Monae MD [address] [place] [address] 2L DEPT [place] [address] 02/15/2025 10:00 AM CDT Office Visit [facility] - Internal Med [address] [place] [phone] Richard Chacon III, MD [address] [place] [address] 2[place] [address] documented as of this encounter Visit Diagnoses Not on filedocumented in this encounter Care Teams Metal Spray Operator Relationship Specialty Start Date End Date Richard Chacon III, MD [address] [place] [address] 2[place] [address] PCP - General Internal Medicine 01/29/22 Christa Velez APRN-EVP SALES [address] [phone] Psychiatrist Nurse Practitioner 08/07/21 Morgan Randhawa MD [address] [place] [address] [place] [phone] Resident - PCP Internal Medicine 01/29/22 Pineda Randhawa MD [address] [place] [address] [place] [phone] Resident Rheumatology 12/24/22 Will Naqvi MD [address] DIV [place] [address] Automobile Club Information Clerk Rheumatology 12/24/22 Pineda Randhawa MD [address] [place] [phone] Resident Rheumatology 02/04/23 Estee Peck MD [address] 3L [place] [address] Dermatology 02/04/23 documented as of this encounter
--- OUTSIDE RECORDS SUMMARY | 2024-07-15 18:37 | XMS_ITS | Encounter Summary ---
Author Organization [facility] Health Address [address] [facility] [place] [address] Care Team Providers Care Automatic Profile Sander Operator Name Role Phone Christa Velez APRN-BILINGUAL OFFICE ASSISTANT Unavailable [phone] Oswaldo BOSCH MD, Francis G Primary Care Provider [phone] Morgan Randhawa MD Unavailable Pineda Randhawa MD Unavailable Will Naqvi MD Unavailable Pineda Randhawa MD Unavailable Estee Peck MD Unavailable Oswaldo BOSCH MD, Francis G Unavailable Encounter Details Date Type Department Care Team (Latest Contact Info) Description 02/12/2024 Travel Social History Tobacco Use Types Packs/Day [...] Office Visit [facility] - Rheumatology [address] [place] [phone] Paulino Youngblood MD [address] [place] [address] [place] [phone] 11/30/2024 3:00 PM CDT Office Visit [facility] - ENT [address] [place] [phone] Friolan Monae MD [address] [place] [address] [place] [address] 02/15/2025 10:00 AM CDT Office Visit [facility] - Internal Med [address] [place] [phone] Richard Chacon III, MD [address] [place] [address] [place] [phone] documented as of this encounter Visit Diagnoses Not on filedocumented in this encounter Care Teams Automatic Profile Sander Operator Relationship Specialty Start Date End Date Richard Chacon III, MD [address] [place] [address] [place] [phone] PCP - General Internal Medicine 01/29/22 Richard Chacon III, MD [address] [place] [address] 2L [place] [phone] PCP - Attributed-[facility] P4P 11/23/23 Christa Velez APRN-BILINGUAL OFFICE ASSISTANT [address] Juve Rust [address] [place] [phone] Psychiatrist Nurse Practitioner 08/07/21 Morgan Randhawa MD [address] [place] [address] [place] [phone] Resident - PCP Internal Medicine 01/29/22 Pineda Randhawa MD [address] [facility] [place] [phone] Resident Rheumatology 12/24/22 Will Naqvi MD [address] [facility] 2L [place] [phone] Account Financial Manager Rheumatology 12/24/22 Pineda Randhawa MD [address] [facility] [address] [place] [address] Resident Rheumatology 02/04/23 Estee Peck MD [address] [facility] 3L [place] [address] Dermatology 02/04/23 documented as of this encounter
--- OUTSIDE RECORDS SUMMARY | 2024-07-15 18:37 | XMS_ITS | Clinical Summary ---
Author Organization [facility] Address [address] [place] [address] Care Team Providers Care Sample Tester Grinder Name Role Phone Christa Velez APRN-FUNERAL HOME MAKEUP ARTIST Unavailable [phone] Oswaldo BOSCH MD, Francis G Primary Care Provider [phone] Morgan Randhawa MD Unavailable Pineda Randhawa MD Unavailable Will Naqvi MD Unavailable [phone] Pineda Randhawa MD Unavailable Estee Peck MD Unavailable [phone] Oswaldo BOSCH MD, Francis G Unavailable [phone] Source Comments [facility],non-owned Affiliates and Associated Physician Practices is amultiple site organization consisting of ambulatory clinics and hospital sitesin [place], [place], [place] and [place]. This disclosure is being madepursuant to the Care Everywhere program and may not contain all information available regarding this patient. Last updated 18.[facility] Allergies Active Allergy Reactions Criticality Noted Date [...] 37.9 in adult 01/29/2022 Psoriatic arthritis 01/29/2022 Encounters Date Type Department Care Team Description 06/07/2024 Refill [facility] - Rheumatology [address] [place] [address] Paulino Youngblood MD Refill Request 06/01/2024 2:30 PM MECHANICAL UNIT REPAIRER Office Visit [facility] - ENT [address] [place] [address] Froilan Monae MD Dysfunction of both eustachian tubes (Primary Dx); Perforation of both tympanic membranes; Chronic diffuse otitis externa of both ears; Impacted cerumen of left ear; Foreign body of left ear, initial encounter 06/01/2024 Travel from Last 3 Months Immunizations Name Administration Dates Next Due Covid [...] RECOM-AN, QUADR. (FLUBLOCK QUADRIVALENT; 18Y+) (RIV4) 06/06/2022,04/03/2021 Family History Medical History Relation Name Comments Bipolar Disorder Father Diabetes - Type 2 Father Psoriasis Father weekly malcolm Bipolar Disorder Sister Diabetes - Type 2 Sister Relation Name Status Comments Father Sister Social History Tobacco Use Types Packs/Day Years [...] Comments Blood Pressure 113/78 06/01/2024 2:32 PM MECHANICAL UNIT REPAIRER Pulse 98 06/01/2024 2:32 PM MECHANICAL UNIT REPAIRER Temperature 37.1 ??C (98.7 ??F) 02/12/2024 1:37 PM CD T Respiratory Rate 18 03/19/2022 2:48 PM CDT Oxygen Saturation 96% 02/12/2024 1:37 PM CDT Inhaled Oxygen Concentration - - Weight 120.8 kg (266 lb 6.4 oz) 06/01/2024 2:32 PM MECHANICAL UNIT REPAIRER Height 170.2 cm (5' 7 ) 06/01/2024 2:32 PM MECHANICAL UNIT REPAIRER Body Mass Index 41.72 06/01/2024 2:32 PM MECHANICAL UNIT REPAIRER Plan of Treatment Upcoming Encounters Date Type Department Care Team (Late st Contact Info) Description 10/21/2024 1:30 PM CDT Office Visit [facility] - Rheumatology [address] [place] [phone] Paulino Youngblood MD [address] [place] [address] [place] [address] 11/30/2024 3:00 PM CDT Office Visit [facility] - ENT [address] [place] [phone] Froilan Monae MD [address] [place] [address] 2L DE[place] [address] 02/15/2025 10:00 AM CDT Office Visit [facility] - Internal Med [address] [place] [address], [place] [phone] Richard Chacon III, MD [address] [place] [address] 2L [place] [phone] Health Maintenance Due Date Last Done Comments ZOSTER VACCINE (1 of 2) 12/17/2015 COVID-19 VACCINE ( season) 2024 07/24/2021, 10/13/2020, 09/22/2020 INFLUENZA VACCINE (#1) 2024 , 04/03/2021, 03/18/2020, Additional history exists DEPRESSION SCREENING 06/24/2024 02/12/2024, 02/12/2024, 02/04/2023, Additional history exists DTAP/TDAP/TD VACCINES (7 - Td or Tdap) 04/03/2031 04/03/2021, 10/20/2002, 04/06/1998, Additional history exists HEPATITIS B VACCINE Completed 07/26/1997, 02/03/1997, 1996 HPV VACCINE Completed 07/14/2010, 02/23, 12/01/2009 MENINGOCOCCAL VACCINE Completed 12/21/2013, 010 HEPATITIS C SCREENING Completed 07/05/2021 PNEUMOCOCCAL VACCINE Completed 02/04/2023 HIV SCREENING Completed 07/24/2023 HIB VACCINE Aged Out No longer eligi ble based on patient's age to complete this topic MENINGOCOCCAL (Group B) VACCINE Aged Out No longer eligible based on patient's age to complete this topic Procedures Procedure Name Priority Date/Time Associated Diagnosis Comments GA REMOVE CERUMEN IMPACTED W INSTR LEFT EAR Routine 06/01/2024 3:18 PM MECHANICAL UNIT REPAIRER Impacted cerumen of left ear HIV-1 HIV-2 ANTIBODY + HIV P24 AG PANEL Routine 07/24/2023 2:25 PM MECHANICAL UNIT REPAIRER Routine general medical examination at health care facility HEPATITIS C AB W/RFLX TO HCV RNA QN PCR Routine 07/05/2021 11:11 AM MECHANICAL UNIT REPAIRER High risk medications (not anticoagulants) long-term use from Last 3 Months or Most Recently Relevant to Health Maintenance Results * GA REMOVE CERUMEN IMPACTED W INSTR LEFT EAR (06/01/2024 3:18 PM MECHANICAL UNIT REPAIRER) Narrative Froilan Monae MD - 06/01/2024 3:18 PM MECHANICAL UNIT REPAIRER Froilan Monae MD ? 06/01/2024 ??3:19 PM [...] P24 AG PANEL (07/24/2023 2:25 PM MECHANICAL UNIT REPAIRER) HIV Antigen/Antibod y 1 & 2 Non-reacti ve Non-react brian 07/24/2023 3:43 PM MECHANICAL UNIT REPAIRER [facility] Comment:No Laboratory eviden ce of HIV infection. Blood BLOOD SPECIMEN / Unknown Lab Venipuncture / Unknown 07/24/2023 2:25 PM MECHANICAL UNIT REPAIRER 07/24/2023 2:56 PM MECHANICAL UNIT REPAIRER Richard Chacon III, MD LAB - CHEMISTRY O RDERABLES [facility] [address] [place] [address] [phone] * HEPATITIS C AB W/RFLX TO HCV RNA QN PCR (07/05/2021 11:11 AM MECHANICAL UNIT REPAIRER) Hepatitis C Antibody NON-REACTI VE NON-REACT [facility] Signal to Cut-Off 0.01 <1.00 [facility] Comment: HCV antibody was non-reactive. There is no laboratory evidence of HCV infection. In most cases, no further action is required. However, if recent HCV exposure is suspected, a test for HCV RNA (test code 85967) is suggested. For additional information please refer to http://education.HealthyRoad/faq/SFH65r0 (This link is being provided for informational/ educational purposes only.) REPORT COMMENT: FASTING:NO Test Performed at: [facility] ??[phone] SIRIA AGUILAR DO,MPH Blood BLOOD SPECIMEN / Unknown 07/05/2021 11:11 AM MECHANICAL UNIT REPAIRER 07/05/2021 11:12 AM MECHANICAL UNIT REPAIRER Estee Peck MD LAB - CHEMISTRY ALEENA HERNANDEZ [facility] Organization Address City/State/ZIP Co de Phone Number [facility] [address] [place] [address] from Last 3 Months or Most Recently Relevant to Health Maintenance Care Teams Sample Tester Grinder Relationship Specialty Start Date End Date Richard Chacon III, MD [address] 2L [place] [phone] PCP - General Internal Medicine 01/29/22 Richard Chacon III, MD [address] 2L [place] [phone] PCP - [facility] NIYAH [place] P4P 11/23/23 Christa Velez APRN-FUNERAL HOME MAKEUP ARTIST [address] [place] [phone] Psychiatrist Nurse Practitioner 08/07/21 Morgan Randhawa MD [address] [place] [phone] Resident - PCP Internal Medicine 01/29/22 Pineda Randhawa MD [address] [phone] Resident Rheumatology 12/24/22 Will Naqvi MD [address] 2L [place] [phone] Ballistician Rheumatology 12/24/22 Pineda Randhawa MD [address] [place] [address] Resident Rheumatology 02/04/23 Estee Peck MD [address] 3L [place] [address] Dermatology 02/04/23
--- OUTSIDE RECORDS SUMMARY | 2024-07-15 18:37 | XMS_ITS | Encounter Summary ---
Author Organization [facility] Address [address] [facility] [place] [address] Care Team Providers Care Coater Operator Insulation Board Name Role Phone Christa Velez APRN-COLLEGE PRESIDENT Unavailable Oswaldo BOSCH MD, Francis G Primary Care Provider [phone] Morgan Randhawa MD Unavailable Pineda Randhawa MD Unavailable Will Naqvi MD Unavailable Pineda Randhawa MD Unavailable Estee Peck MD Unavailable Oswaldo BOSCH MD, Francis G Unavailable [phone] Reason for Visit * Reason Onset Date Comments MEDICATION REFILL 09/09/2023 Encounter Details Date Type Department Care Team (Late st Contact Info) Description 09/09/2023 Refill [facility] - Dermatology [address], [address] [place] [address] Estee Peck MD [address] [facility] 3 [place] [address] MEDICATION REFILL Social History Tobacco Use Types [...] encounter Miscellaneous Notes * Telephone Encounter - Rishi Randall - 12/02/2023 11:47 AM CDT LV: 10/16/21 NV: no appointment RTC: 6 months Rishi Randall documented in this encounter Plan of Treatment Upcoming Encounters Date Type Department Care Team (Late st Contact Info) Description 10/21/2024 1:30 PM CDT Office Visit [facility] - Rheumatology [address] [place] [phone] Paulino Youngblood MD [address] [place] [address] DIV [place] [address] 11/30/2024 3:00 PM CDT Office Visit [facility] - ENT [address] [place] [phone] Froilan Monae MD [address] [place] [address] DEPT [place] [address] 02/15/2025 10:00 AM CDT Office Visit [facility] - Internal Med [address] [place] [phone] Richard Chacon III, MD [address] [place] [address] 2[place] [address] documented as of this encounter Visit Diagnoses Diagnosis Other psoriasis documented in this encounter Care Teams Coater Operator Insulation Board Relationship Specialty Start Date End Date Richard Chacon III, MD [address] [place] [address] 2[place] [address] PCP - General Internal Medicine 01/29/22 Richard Chacon III, MD [address] 2L [place] [address] PCP - [facility] NIYAH [place] P4P 11/23/23 Chrsita Velez APRN-COLLEGE PRESIDENT [address] [place] [address] Psychiatrist Nurse Practitioner 08/07/21 Morgan Randhawa MD [address] [place] [phone] Resident - PCP Internal Medicine 01/29/22 Pineda Randhawa MD [address] [phone] Resident Rheumatology 12/24/22 Will Naqvi MD [address] 2L [place] [address] Keno Dealer Rheumatology 12/24/22 Pineda Randhawa MD [address] [facility] [address] [place] [address] Resident Rheumatology 02/04/23 Estee Peck MD [address] 3L [place] [address] Dermatology 02/04/23 documented as of this encounter
--- OUTSIDE RECORDS SUMMARY | 2024-07-15 18:37 | XMS_ITS | Encounter Summary ---
Author Organization [facility] Address [address] [facility] [address] Care Team Providers Care Stonecutter Hand Name Role Phone Christa Velez APRN-ADDICTION NURSE Unavailable [phone] Oswaldo BOSCH MD, Francis G Primary Care Provider [phone] Morgan Randhawa MD Unavailable Pineda Randhawa MD Unavailable Will Naqvi MD Unavailable [phone] Pineda Randhawa MD Unavailable Estee Peck MD Unavailable [phone] Oswaldo BOSCH MD, Francis G Unavailable Encounter Details Date Type Department Care Team (Latest Contact Info) Description 01/13/2024 Travel Social History Tobacco Use Types Packs/Day [...] [facility] - Rheumatology [address] [place] [phone] Paulino Youngblood MD [address] [place] [address] [place] [address] 11/30/2024 3:00 PM CDT Office Visit [facility] - ENT [address] [place] [phone] Froilan Monae MD [address] [place] [address] [place] [address] 02/15/2025 10:00 AM CDT Office Visit [facility] - Internal Med [address] [place] [phone] Richard Chacon III, MD [address] [place] [address] [place] [address] documented as of this encounter Visit Diagnoses Not on filedocumented in this encounter Care Teams Stonecutter Hand Relationship Specialty Start Date End Date Richard Chacon III, MD [address] [place] [address] [place] [phone] PCP - General Internal Medicine 01/29/22 Richard Chacon III, MD [address] [place] [address] 2L [place] [phone] PCP - [facility] 11/23/23 Christa Velez APRN-ADDICTION NURSE [address] Rust [address] [place] [address] Psychiatrist Nurse Practitioner 08/07/21 Morgan Randhawa MD [address] [place] [address] [place] [address] Resident - PCP Internal Medicine 01/29/22 Pineda Randhawa MD [address] [facility] [place] [address] Resident Rheumatology 12/24/22 Will Naqvi MD [address] [facility] 2L [place] [address] Forensic Document Examiner Rheumatology 12/24/22 Pineda Randhawa MD [address] [facility] [address] [place] [address] Resident Rheumatology 02/04/23 Estee Peck MD [address] [facility] 3L [place] [address] Dermatology 02/04/23 documented as of this encounter
--- OUTSIDE RECORDS SUMMARY | 2024-07-15 18:37 | XMS_ITS | Encounter Summary ---
Author Organization [facility] Address [address] [facility] [place] [address] Care Team Providers Care Postal Support Employee Name Role Phone AyakacharlotteChrista HARVEY-INSULATION ESTIMATOR Unavailable [phone] Oswaldo BOSCH MD, Richard Sanchez Primary Care Provider [phone] Morgan Randhawa MD Unavailable Pineda Randhawa MD Unavailable Will Naqvi MD Unavailable Pineda Randhawa MD Unavailable Estee Peck MD Unavailable [phone] Reason for Visit * Reason Onset Date Comments MEDICATION REFILL 08/27/2023 Encounter Details Date Type Department Care Team (Late st Contact Info) Description 08/27/2023 Refill [facility] - Rheumatology [facility] [facility], [place] [address] Pineda Randhawa MD [address] [place] [address] Rd [address] [place] [address] MEDICATION REFILL Social History Tobacco Use Types [...] Telephone Encounter - Florence Guzmán, RN - 08/29/2023 2:17 PM CST Refill Request Manoj Horner UVALDO:07/24/23Apr due: NOV scheduled: LRF: 05/10/23 Qty Disp: 2 # of refills: 3 Allergies: Allergies Allergen Reactions ??? Food Headache Spaghetti sauce and mozzarella cheese Pended Medication Order: Requested Prescriptions Pending Prescriptions Disp Refills ??? secukinumab (Cosentyx Sensoready, 300 MG,) 150 MG/ML SOAJ pen 2 mL 3 Sig: Inject 300 (three hundred) mg subcutaneously every 28 days KEN CUTTER * Telephone Encounter - Miguel Ángel Harris - 08/27/2023 9:40 AM CST Refill Request Manoj Horner UVALDO: 12/26/2022Apr scheduled: 07/03/2023 CANCELED LRF:05/10/2023 Qty Disp: 2mL # of refills:3 Allergies: Allergies Allergen Reactions ??? Food Headache Spaghetti sauce and mozzarella cheese Pended Medication Order: Requested Prescriptions Pending Prescriptions Disp Refills ??? secukinumab (Cosentyx Sensoready, 300 MG,) 150 MG/ML SOAJ pen 2 mL 3 KEN CUTTER documented in this encounter Plan of Treatment Upcoming Encounters Date Type Department Care Team (Late st Contact Info) Description 10/21/2024 1:30 PM CDT Office Visit [facility] - Rheumatology [address] [place] [address], [place] [phone] Paulino Youngblood MD [address] [place] [address] [place] [phone] 11/30/2024 3:00 PM CDT Office Visit [facility] - ENT [address] [place] [address], [place] [phone] Froilan Monae MD [address] [place] [address] [place] [address] 02/15/2025 10:00 AM CDT Office Visit [facility] - Internal Med [address] [place] [phone] Richard Chacon III, MD [address] [place] [address] 2[place] [address] documented as of this encounter Visit Diagnoses Diagnosis Psoriatic arthritis (HCC)- Primary Psoriatic arthropathy documented in this encounter Care Teams Postal Support Employee Relationship Specialty Start Date End Date Richard Chacon III, MD [address] [place] [address] 2[place] [phone] PCP - General Internal Medicine 01/29/22 Christa Velez APRN-INSULATION ESTIMATOR [address] [address] Psychiatrist Nurse Practitioner 08/07/21 Morgan Randhawa MD [address] [place] [address] [place] [phone] Resident - PCP Internal Medicine 01/29/22 Pineda Randhawa MD [address] [place] [address] [place] [phone] Resident Rheumatology 12/24/22 Will Naqvi MD [address] [place] [address] 2L [place] [phone] Tile Sorter Rheumatology 12/24/22 Pineda Randhawa MD [address] [place] [address] Resident Rheumatology 02/04/23 Estee Peck MD [address] [facility] 3L [place] [address] Dermatology 02/04/23 documented as of this encounter
--- OUTSIDE RECORDS SUMMARY | 2024-07-15 18:38 | XMS_ITS | Encounter Summary ---
Author Organization [facility] Health Address [address] [facility] [place] [address] Care Team Providers Care Bar Welder Name Role Phone Christa Velez APRN-SAW MAN Unavailable [phone] Oswaldo BOSCH MD, Richard Sanchez Primary Care Provider [phone] Morgan Randhawa MD Unavailable Reason for Visit * Reason Onset Date Comments Medication Prior Auth Request 08/31/2022 Co sentyx Encounter Details Date Type Department Care Team (Late st Contact Info) Description 08/31/2022 Telephone [facility] [address] [facility], [place] [address] Pineda Randhawa MD [address] [facility] [address] [place] [phone] Medication Prior Auth Request (Cosentyx) Social History Tobacco Use Types Packs/Day Years Used Date Smoking Tobacco: Never Smokeless Tobacco: Never Alcohol Use Standard Drinks/Week Comments No 0 (1 standard drink = 0.6 oz pur e alcohol) PHQ-2 Answer Date Recorded PHQ2 TOTAL SCORE 2 01/17/2022 Sex and Gender Information Value Date Recorded Sex Assigned at Not on file Gender Identity Not on file Sexual Orientation Not on file documented as of this encounter Miscellaneous Notes * Telephone Encounter - Florence Guzmán RN - 08/31/2022 12:02 PM CST PA approved through CMM with [employer] Medicare Part D for Cosentyx 150 mg / ml auto-injectors, effective 06/24/22 - 06/23/23. PALACIOS: [id number] ALMIC TECH documented in this encounter Plan of Treatment Upcoming Encounters Date Type Department Care Team (Late st Contact Info) Description 10/21/2024 1:30 PM CDT Office Visit [facility] Rheumatology [address] [place] [phone] Paulino Youngblood MD [address] [place] [address] [place] [address] 11/30/2024 3:00 PM CDT Office Visit [facility] - ENT [address] [place] [phone] Froilan Monae MD [address] [place] [address] [place] [address] 02/15/2025 10:00 AM CDT Office Visit [facility] - Internal Med [address] [place] [phone] Richard Chacon III, MD [address] [place] [address] 2L [place] [phone] documented as of this encounter Visit Diagnoses Not on filedocumented in this encounter Care Teams Bar Welder Relationship Specialty Start Date End Date Richard Chacon III, MD [address] [place] [address] 2[address] [place] [phone] PCP - General Internal Medicine 01/29/22 Christa Velez APRN-SAW MAN [address] [place] [address] Psychiatrist Nurse Practitioner 08/07/21 Morgan Randhawa MD [address] [place] [address] [place] [address] Resident - PCP Internal Medicine 01/29/22 documented as of this encounter
--- OUTSIDE RECORDS SUMMARY | 2024-07-15 18:38 | XMS_ITS | Encounter Summary ---
Author Organization [facility] Address [address] [facility] [place] [address] Care Team Providers Care Creative Services Writer Name Role Phone AyakacharlotteChrista HARVEY-AQUARIUM SPECIALIST Unavailable [phone] Oswaldo BOSCH MD, Francis G Primary Care Provider [phone] Morgan Randhawa MD Unavailable Pineda Randhawa MD Unavailable Will Naqvi MD Unavailable Pineda Randhawa MD Unavailable Estee Peck MD Unavailable Encounter Details Date Type Department Care Team (Latest Contact Info) Description 03/21/2023 3:00 PM CDT Office Visit [facility] - ENT [address] [place] [phone] Froilan Monae MD [address] [place] [address] [place] [address] Perforation of both tympanic membranes (Primary Dx); Mixed conductive and sensorineural hearing loss of both ears; Dysfunction of both eustachian tubes; Chronic diffuse otitis externa of both ears; Excessive cerumen in both ear canals Social History Tobacco Use Types Packs/Day Years [...] Sign Reading Time Taken Comments Blood Pressure 118/85 03/21/2023 3:08 PM CDT Pulse 96 03/21/2023 3:08 PM CDT Temperature - - Respiratory Rate - - Oxygen Saturation 96% 03/21/2023 3:08 PM CDT Inhaled Oxygen Concentration - - Weight 116.6 kg (257 lb) 03/21/2023 3:08 PM CDT Height 172.7 cm (5' 8 ) 03/21/2023 3:08 PM CDT Body Mass Index 39.08 03/21/2023 3:08 PM CDT documented in this encounter Patient Instructions * Patient Instructions* Meli Cruz MA - 03/21/2023 10:30 AM CDT Thank you for visiting [facility] Otolaryngology - Head & Neck Surgery. We [...] an appointment, please call our office at [phone] Saturday through Saturday from 8:00 am to4:30 pm. You can also request a routine appointment through your [email or web address] account. Prescription Refills Contact your pharmacy to [...] the medical exchange at and ask the hardening machine operator helper to page the ENT physician prison guard. *Caller ID blocking service will need to be turned off for your call to be returned. We also specialize in Hearing Aids, Allergy testing, swallowing disorders, voice problems, cancer diagnosis, and so much more. Visit our website at [email or web address] for information about our practice and an interactive health encyclopedia. documented in this encounter Progress Notes * Froilan Monae MD - 03/21/2023 3:27 PM CDT History of Present Illness: 27 year old on disability with a h/o migraines, bipolar AU ETD, s/p PET at least once around age 6,now with AU TM perf, uses hearing aids AU He has had mild bother from his hearing loss and thinks it may have gotten worse over the last few months. No drainage from the ears. No head imaging in [facility] Epic No recent relevant records in media tab No other inciting exacerbating or alleviating factors. Review of Systems: ROS: Negative times 13 (Including General, Psych, Neuro, HEENT, Resp, CV, GI, , Musculoskeletal, Derm,Heme/Lymph), except as noted in EPIC and reviewed by me. Pertinent issues include: No notes on file Past Medical History Past Medical History: Diagnosis Date ??? Autism ??? Bipolar 1 disorder (CMS/HCC) ??? Migraines ??? Psoriasis ??? Vitamin D deficiency Medications Current Outpatient Medications Medication Sig Dispense Refill ??? amitriptyline (Elavil) 25 MG tablet Take 1 (one) tablet by mouth at bedtime ??? buPROPion SR 12hr (WELLBUTRIN SR) 200 MG tablet Take 1 (one) tablet by mouth 2 times daily ??? calcipotriene (DOVONEX) 0.005 % cream Apply to affected area 2 times daily 60 g 3 ??? citalopram (CELEXA) 40 MG tablet TAKE 1 TABLET BY MOUTH EVERY DAY IN THE MORNING ??? clobetasol (TEMOVATE) 0.05 % ointment APPLY TOPICALLY TO AFFECTED AREA(S) OF KNEES AND ELBOWS TWICE DAILY 60 g 3 ??? Cosentyx Sensoready, 300 MG, 150 MG/ML SOAJ pen INJECT 300MG UNDER THE SKIN EVERY 28 DAYS 2 mL 3 ??? folic acid (FOLVITE) 1 MG tablet Take 1 daily except the day you take methotrexate 30 tablet 11 ??? ketoconazole (NIZORAL) 2 % shampoo Apply to wet hair, leave on for 3 minutes, then rinse; threetimes weekly. 30 days supply 120 mL 11 ??? melatonin 3 MG tablet Take 1 (one) tablet by mouth at bedtime ??? naproxen (Naprosyn) 500 MG tablet Take 1 (one) tablet by mouth 2 times daily 120 tablet 1 ??? olanzapine (ZYPREXA) 10 MG tablet Take 1 (one) tablet by mouth once daily ??? vitamin D3 (Cholecalciferol) 25 MCG (1000 UNITS) tablet Take 1 (one) tablet by mouth once daily No current facility-administered medications for this visit. Allergies Food Social History Social History Socioeconomic History ??? Marital status: Single Tobacco Use ??? Smoking status: Never ??? Smokeless tobacco: Never Substance and Sexual Activity ??? Alcohol use: No ??? Drug use: No Family History Family History Problem Relation Name Age of Onset ??? Bipolar Disorder Father ??? Diabetes - Type 2 Father ??? Psoriasis Father weekly malcolm ??? Bipolar Disorder Sister ??? Diabetes - Type 2 Sister Vitals BP 118/85 (BP SITE: LEFT ARM, BP POSITION: SITTING) Pulse 96 Ht 1.727 m (5' 8 ) Wt 116.6 kg (257 lb) SpO2 96% Body mass index is 39.08 kg/m??. Physical Exam: Constitutional: Alert, No acute [...] the hearing aids and information regarding the [place] for hearing and speech was provided. If [...] Procedure Notes * Froilan Monae MD - 03/21/2023 4:40 PM CDTAssociated Order(s): PROC MICROSCOPIC EAR EXAM Procedure(s): AL EAR MICROSCOPY EXAMINATION Pre-Procedure Diagnose(s): Excessive cerumen in both ear canals Procedure: Microscopic exam of the ear(s) Findings: See main note. Procedure in detail: The binocular operating microscope and and ear speculum were used to exam the ear(s). The patient tolerated the procedure well and there was no bleeding. Froilan Monae MD documented in this encounter Plan of Treatment Upcoming Encounters Date Type Department Care Team (Late st Contact Info) Description 10/21/2024 1:30 PM CDT [facility] [address] [place] [phone] Paulino Youngblood MD [address] [place] [address] [place] [phone] 11/30/2024 3:00 PM CDT Office Visit [facility] - ENT [address] [place] [phone] Froilan Monae MD [address] [place] [address] [place] [address] 02/15/2025 10:00 AM CDT Office Visit [facility] - Internal Med [address] [place] [phone] Richard Chacon III, MD [address] [place] [address] 2[address] [place] [phone] documented as of this encounter Procedures Procedure Name Priority Date/Time Associated Diagnosis Comments AL EAR MICROSCOPY EXAMINATION Routine 03/21/2023 4:40 PM CDT Excessive cerumen in both ear canals documented in this encounter Results * AL EAR MICROSCOPY EXAMINATION (03/21/2023 4:40 PM CDT) [...] documented in this encounter Visit Diagnoses Diagnosis Perforation of both tympanic membranes- Primary Perforation of tympanic membrane, unspecified Mixed conductive and sensorineural hearing loss of both ears Mixed hearing loss, bilateral Dysfunction of both eustachian tubes Dysfunction of Eustachian tube Chronic diffuse otitis externa of both ears Excessive cerumen in both ear canals documented in this encounter Care Teams Creative Services Writer Relationship Specialty Start Date End Date Richard Chacon III, MD [address] [facility] 2L [place] [phone] PCP - General Internal Medicine 01/29/22 Christa Velez APRN-AQUARIUM SPECIALIST [address] [phone] Psychiatrist Nurse Practitioner 08/07/21 Morgan Randhawa MD [address] [facility] [place] [place] [phone] Resident - PCP Internal Medicine 01/29/22 Pineda Randhawa MD [address] [facility] [place] [phone] Resident Rheumatology 12/24/22 Will Naqvi MD [address] [facility] 2L [place] [phone] Pull Socket Assembler Rheumatology 12/24/22 Pineda Randhawa MD [address] [place] [address] Resident Rheumatology 02/04/23 Estee Peck MD [address] [facility] 3L [place] [address] Dermatology 02/04/23 documented as of this encounter
--- OUTSIDE RECORDS SUMMARY | 2024-07-15 18:38 | XMS_ITS | Encounter Summary ---
Author Organization [facility] Address [address] [facility] [place] [address] Care Team Providers Care Peoplesoft Hcm Developer Name Role Phone Christa Velez APRN-CERTIFIED LOW VISION THERAPIST Unavailable [phone] Encounter Details Date Type Department Care Team (Late Contact Info) Description 09/22/2021 Orders Only [facility] [address] [place] [address] Kirk Sue MD [address] [place], [place] [phone] High risk medications (not anticoagulants) long-term use Social History Tobacco Use Types Packs/Day Years Used Date Smoking Tobacco: Never Smokeless Tobacco: Never Alcohol Use Standard Drinks/Week Comments No 0 (1 standard drink = 0.6 oz pur e alcohol) PHQ-2 Answer Date Recorded PHQ2 TOTAL SCORE 0 04/03/2021 Sex and Gender Information Value Date Recorded Sex Assigned at Not on file Gender Identity Not on file Sexual Orientation Not on file documented as of this encounter Plan of Treatment Upcoming Encounters Date Type Department Care Team (Late Contact Info) Description 10/21/2024 1:30 PM CDT Office Visit [facility] - Rheumatology [address] [place] [address], [place] [phone] Paulino Youngblood MD [address] [place] [address] [place] [phone] 11/30/2024 3:00 PM CDT Office Visit [facility] - ENT [address] [place] [phone] Froilan Monae MD [address] [place] [address] [place] [address] 02/15/2025 10:00 AM CDT Office Visit [facility] - Internal Med [address] [place] [phone] Richard Chacon III, MD [address] [place] [address] [place] [phone] documented as of this encounter Visit Diagnoses Diagnosis High risk medications (not anticoagulants) long-term use Encounter for long-term (current) use of other medications documented in this encounter Care Teams Peoplesoft Hcm Developer Relationship Specialty Start Date End Date Christa Velez APRN-JESSICA [address] [place] [phone] Psychiatrist Nurse Practitioner 08/07/21 documented as of this encounter
--- OUTSIDE RECORDS SUMMARY | 2024-07-15 18:38 | XMS_ITS | Encounter Summary ---
Author Organization [facility] Address [address] [facility] [place] [address] Care Team Providers Care Home Security Alarm Installer Name Role Phone Christa Velez APRN-GRANITE COUNTERTOP INSTALLER Unavailable [phone] Encounter Details Date Type Department Care Team (Late Contact Info) Description 09/29/2021 Orders Only [facility] [address] [place] [address] Kirk Sue MD [address] [place], [place] [phone] High risk medications (not anticoagulants) long-term use [...] Office Visit [facility] - Rheumatology [address] [place] [address], [place] [phone] Paulino Youngblood MD [address] [place] [address] [place] [phone] 11/30/2024 3:00 PM CDT Office Visit [facility] - ENT [address] [place] [phone] Froilan Monae MD [address] [place] [address] [place] [address] 02/15/2025 10:00 AM CDT Office Visit [facility] Internal Med [address] [place] [phone] Richard Chacon III, MD [address] [place] [address] [place] [phone] documented as of this encounter Visit Diagnoses Diagnosis High risk medications (not anticoagulants) long-term use Encounter for long-term (current) use of other medications documented in this encounter Care Teams Home Security Alarm Installer Relationship Specialty Start Date End Date Christa Velez APRN-JESSICA [address] [place] [address] Psychiatrist Nurse Practitioner 08/07/21 documented as of this encounter
--- OUTSIDE RECORDS SUMMARY | 2024-07-15 18:38 | XMS_ITS | Encounter Summary ---
Author Organization [facility] Address [address] [facility] [place] [address] Care Team Providers Care International First Officer Name Role Phone Ayakacharlotte Christa HARVEY-EXTRACTOR PLANT OPERATOR Unavailable [phone] Reason for Visit * Reason Onset Date Comments MEDICATION REFILL 01/25/2022 Encounter Details Date Type Department Care Team (Late st Contact Info) Description 01/25/2022 Refill [facility] [address] [facility] [place] [phone] Elsa Orellana MA MEDICATION REFILL Social History Tobacco Use Types [...] encounter Miscellaneous Notes * Telephone Encounter - Marnie Bruce - 01/25/2022 3:36 PM CDT Rheumatology prescribes pt Cosentyx and a rx was sent on 01/23/2022 pt sent mychart message to contact rheum regarding cosentyx Marnie Bruce Biologics Coordinator . * Telephone Encounter - Elsa Orellana MA - 01/25/2022 8:33 AM CDT LV 10-16-2021 NV 04-23-2022 RTC 6 months Elsa Orellana MA documented in this encounter Plan of Treatment Upcoming Encounters Date Type Department Care Team (Late st Contact Info) Description 10/21/2024 1:30 PM CDT Office Visit [facility] - Rheumatology [address] [place] [phone] Paulino Youngblood MD [address] [place] [address] DIV [place] [phone] 11/30/2024 3:00 PM CDT Office Visit [facility] - ENT [address] [place] [phone] Froilan Monae MD [address] [place] [address] DEPT [place] [address] 02/15/2025 10:00 AM CDT Office Visit [facility] - Internal Med [address] [place] [phone] Richard Chacon III, MD [address] [place] [address] 2L [place] [phone] documented as of this encounter Visit Diagnoses Diagnosis Psoriatic arthritis (HCC) Psoriatic arthropathy documented in this encounter Care Teams International First Officer Relationship Specialty Start Date End Date Christa Velez APRN-EXTRACTOR PLANT OPERATOR [address] [place] [phone] Psychiatrist Nurse Practitioner 08/07/21 documented as of this encounter
--- OUTSIDE RECORDS SUMMARY | 2024-07-15 18:38 | XMS_ITS | Encounter Summary ---
Author Organization [facility] Address [address] [facility] [place] [address] Care Team Providers Care Ice Cream Chef Name Role Phone Christa Velez APRN-MAXILLOFACIAL PROSTHETICS DENTIST Unavailable [phone] Encounter Details Date Type Department Care Team (Late Contact Info) Description 08/11/2021 Orders Only [facility] [address] [place] [address] Kirk Sue MD [address] [place], [place] [phone] High risk medications (not anticoagulants) long-term use [...] on file Sexual Orientation Not on file COVID-19 Exposure Response Date Recorded In the last month, have you been in contact with someone who was confirmed or suspected to have Coronavirus / COVID-19? No / Unsure 08/02/2021 9:31 AM BRIDGES SUPERVISOR documented as of this encounter Plan of Treatment Upcoming Encounters Date Type Department Care Team (Late Contact Info) Description 10/21/2024 1:30 PM CDT Office Visit [facility] - Rheumatology [address] [place] [phone] Paulino Youngblood MD [address] [place] [address] [place] [phone] 11/30/2024 3:00 PM CDT Office Visit [facility] - ENT [address] [place] [phone] Froilan Monae MD [address] [place] [address] [place] [address] 02/15/2025 10:00 AM CDT Office Visit [facility] - Internal Med [address] [place] [phone] Richard Chacon III, MD [address] [place] [address] 2L [place] [phone] documented as of this encounter Visit Diagnoses Diagnosis High risk medications (not anticoagulants) long-term use Encounter for long-term (current) use of other medications documented in this encounter Care Teams Ice Cream Chef Relationship Specialty Start Date End Date Christa Velez APRN-JESSICA [address] [place] [address] Psychiatrist Nurse Practitioner 08/07/21 documented as of this encounter
--- OUTSIDE RECORDS SUMMARY | 2024-07-15 18:38 | XMS_ITS | Encounter Summary ---
Author Organization [facility] Address [address] [facility] [place] [address] Care Team Providers Care Supervisor Baking Name Role Phone Christa Velez APRN-CHRISTIAN SCIENCE READER Unavailable [phone] Encounter Details Date Type Department Care Team (Late Contact Info) Description 08/25/2021 Orders Only [facility] [address] [place] [address] Kirk Sue MD [address] [place], [place] [phone] High risk medications (not anticoagulants) long-term use [...] COVID-19? No / Unsure 08/02/2021 9:31 AM FOUNDATION MAKER documented as of this encounter Plan of Treatment Upcoming Encounters Date Type Department Care Team (Late Contact Info) Description 10/21/2024 1:30 PM CDT Office Visit [facility] - Rheumatology [address] [place] [phone] Paulino Youngblood MD [address] [place] [address] [place] [phone] 11/30/2024 3:00 PM CDT Office Visit [facility] - ENT [address] [place] [phone] Froilan Monae MD [address] [place] [address] [place] [address] 02/15/2025 10:00 AM CDT Office Visit [facility] - Internal Med [address] [place] [phone] Richard Chacon III, MD [address] [place] [address] 2L [place] [phone] documented as of this encounter Visit Diagnoses Diagnosis High risk medications (not anticoagulants) long-term use Encounter for long-term (current) use of other medications documented in this encounter Care Teams Supervisor Baking Relationship Specialty Start Date End Date Christa Vleez APRN-JESSICA [address] [place] [address] Psychiatrist Nurse Practitioner 08/07/21 documented as of this encounter
--- OUTSIDE RECORDS SUMMARY | 2024-07-15 18:38 | XMS_ITS | Encounter Summary ---
Author Organization [facility] Address [address] [place] [address] Care Team Providers Care Clock And Watch Hands Mounter Name Role Phone AyakacharlotteChrista APRN-SENIOR UI UX DEVELOPER Unavailable [phone] Reason for Visit * Reason Comments Follow-up Encounter Details Date Type Department Care Team (Late st Contact Info) Description 01/17/2022 8:40 AM CDT Office Visit [facility] [address] [place] [address], [place] [address] Will Naqvi MD [address] [place] [address] [place] [address] Other psoriasis (Primary Dx); Psoriatic arthritis (HCC); High risk medication use Social History Tobacco Use Types Packs/Day [...] Sign Reading Time Taken Comments Blood Pressure 118/70 01/17/2022 8:33 AM CDT Pulse - - Temperature 36.4 ??C (97.6 ??F) 01/17/2022 8:33 AM CD T Respiratory Rate 18 01/17/2022 8:33 AM CDT Oxygen Saturation - - Inhaled Oxygen Concentration - - Weight 111.1 kg (245 lb) 01/17/2022 8:33 AM CDT Height 172.7 cm (5' 8 ) 01/17/2022 8:33 AM CDT Body Mass Index 37.25 01/17/2022 8:33 AM CDT documented in this encounter Progress Notes * Will Naqvi MD - 01/17/2022 8:39 AM CDT Images from the original note were not included. Rheumatology Clinic Note Patient: Manoj Horner ( 1995, ) Encounter Date: 01/17/2022 Chief Concern: follow up for psoriatic arthritis Assessment & Recommendations Manoj Horner is a 26 year old male with Psoriasis and possible Psoriatic arthritis. He was previously seen by Dr. Farmer, new to me. #. Psoriasis and possible psoriatic arthritis - Onset:2020. Phenotype: Polyarthralgia involving knees, ankles and hands. I do not see objective signs of inflammation on exam including no dactylitis, enthesitis or synovitis although he has been on Cosentyx for 3 months now. He reported interval improvement in his skin rash and also reported improving joint pain. We will continue Cosentyx for now and reassess next visit. X-rays without any erosive disease. He will continue naproxen as he thinks it helps his joint pain. #. Drug Toxicity Monitoring (naproxen): The patient is on drug therapy requiringmonitoring for toxicity. Periodic monitoring of CMP #. Long-Term Immunosuppression due to Drug Therapy (Cosentyx): Checking HBV, HCV, TB quant. Negative HBV (2021), HCV (2021), TB Quant (2021). Immunizations per PCP: for all patients on immunosuppressive therapy with Cosentyx I recommend annual influenza vaccine, COVID19 vaccine, Prevnar, Pneumovax,Shingrix. Avoid live vaccines. Patient advised to contact clinic in case of any infections or antibiotic use. #. Follow-up: In 3 months or sooner if needed. Thank you for placing trust in us. I educated the patient regarding risks and benefits of the management plan, their medical problems, and contingency plans for worsening symptoms. Additional contributions to medical decision making for today's encounter: . - The patient is on drug therapy requiring intensive monitoring for toxicity. - I reviewed the patient's chart including review of clinical notes, laboratory results, and imaging results dating back to 09/12 - Additional independent source(s) of information used for assessment included the patient's motherwho accompanied the patient during the visit. Will Naqvi MD Division of Rheumatology Department of Internal Medicine [facility] Encounter Diagnoses, Orders, and Future Appointments: 1. Other psoriasis 2. Psoriatic arthritis 3. High risk medication use No orders of the defined types were placed in this encounter. Future Appointments Date Time Provider Department Center 01/29/2022 3:00 PM Richard Chacon III, MD [id number] [facility] 06/06/2022 1:00 PM Pineda Randhawa MD [id number] Subjective History of Present Illness: started Cosentyx in September and now on every 4 weeks. skin started clearing up. still having joints pain. reported ongoing pain in his hands,ankles and knees. has noticed improvement in joints pain since starting Cosentyx. He takes Naproxen 500 mg BID. Disease Hx: Skin psoriasis since age 11,was on MTX by Derm. established care with [facility] Rheum 2021 and started onNaproxen and Consentyx. follows Derm at [facility]. Prior therapy: MTX: stopped in September when he started Cosentyx. Review of Systems: All other systems reviewed and negative or noncontributory except as stated in the HPI. Home Medications: Current Outpatient Medications: ??? buPROPion SR 12hr (WELLBUTRIN SR) 200 MG tablet, Take 200 mg by mouth 2 times daily, Disp: , Rfl: ??? calcipotriene (DOVONEX) 0.005 % cream, Apply to affected area 2 times daily, Disp: 60 g, Rfl: 3 ??? citalopram (CELEXA) 40 MG tablet, TAKE 1 TABLET BY MOUTH EVERY DAY IN THE MORNING, Disp: , Rfl: ??? clobetasol (TEMOVATE) 0.05 % ointment, APPLY TOPICALLY TO AFFECTED AREA(S) OF KNEES AND ELBOWS TWICE DAILY, Disp: 60 g, Rfl: 3 ??? folic acid (FOLVITE) 1 MG tablet, Take 1 daily except the day you take methotrexate, Disp: 30 tablet, Rfl: 11 ??? ketoconazole (NIZORAL) 2 % shampoo, Apply to wet hair, leave on for 3 minutes, then rinse; three times weekly. 30 days supply, Disp: 120 mL, Rfl: 11 ??? methotrexate 2.5 MG tablet, Take 8 (eight) tablets by mouth every 7 days, Disp: 32 tablet, Rfl:2 ??? naproxen (NAPROSYN) 500 MG tablet, Take 1 (one) tablet by mouth 2 times daily, Disp: 120 tablet, Rfl: 1 ??? olanzapine (ZYPREXA) 10 MG tablet, Take 10 mg by mouth once daily, Disp: , Rfl: ??? OLANZapine (ZYPREXA) 2.5 MG tablet, TAKE 1 TABLET BY MOUTH EVERY DAY IN THE MORNING, Disp: , Rfl: ??? secukinumab (COSENTYX SENSOREADY PEN) 150 MG/ML auto-injector, Inject 300 mg (2mL) subcutaneously at weeks 0, 1, 2, 3, and 4 and every 4 weeks thereafter, Disp: 12 mL, Rfl: 0 Adverse Drugs Reactions: Allergies Allergen Reactions ??? Food Headache Spaghetti sauce and mozzarella cheese Past Medical History: There is no problem list on file for this patient. Past Medical History: Diagnosis Date ??? Autism ??? Bipolar 1 disorder ??? Migraines ??? Psoriasis ??? Vitamin D deficiency Past Surgical History: No past surgical history on file. Immunization History: Immunization History Administered Date(s) Administered ??? DTP 03/08/1997, 04/23/1997, 07/26/1997, 04/06/1998 ??? DTaP 10/20/2002 ??? FLU VACCINE QUAD IIV4 SPLIT PF IM 05/30/2015, 03/26/2018, 03/18/2020 ??? FLU VACCINE QUAD RIV4 PF IM 04/03/2021 ??? HEP B VACCINE, PED/ADOL 1996, 02/03/1997, 07/26/1997 ??? Human Papilloma Virus Quadrivalent Vaccine 12/01/2009, 03/14/2010, 07/14/2010 ??? MENINGOCOCCAL CONJUGATE (MCV4P) 12/21/2013 ??? MENINGOCOCCAL, HISTORIC VACCINE 12/01/2009 ??? MMR 01/04/1998, 10/20/2002 ??? PFIZER SARS-COV-2 COVID-19 VACCINE 0.3ML 09/22/2020, 10/13/2020 ??? POLIO IPV 03/08/1997, 04/23/1997, 07/26/1997, 10/20/2002 ??? TDAP 04/03/2021 ??? VARICELLA 12/01/2009, 03/14/2010 Social History: Social History Socioeconomic History ??? Marital status: Single Tobacco Use ??? Smoking status: Never Smoker ??? Smokeless tobacco: Never Used Substance and Sexual Activity ??? Alcohol use: No ??? Drug use: No Family History: Family History Problem Relation Name Age of Onset ??? Bipolar Disorder Father ??? Diabetes - Type 2 Father ??? Psoriasis Father weekly malcolm ??? Bipolar Disorder Sister ??? Diabetes - Type 2 Sister Patient Care Team: Patient Care Team: Christa Velez APRN-CNP as Psychiatrist (Nurse Practitioner) Objective Physical Exam BP 118/70 (BP SITE: LEFT ARM, BP POSITION: SITTING, BP CUFF SIZE: 12) Temp 97.6 ??F (36.4 ??C) Resp 18 Ht 5' 8 (1.727 m) Wt 245 lb (111.1 kg) BMI 37.25 kg/m?? GENERAL: not in acute distress HEENT/NECK: Eyes with white sclerae. No oropharyngeal lesions. CHEST/LUNGS: Normal work of breathing, CARDIOVASCULAR: Regular rhythm, no edema. SKIN/NAILS:diffuse skin psoriasis covering 20% BSA. NEURO: Normal muscle bulk and strength in limbs. MSK:Small, medium and large joints of the appendicular skeleton were without swelling, warmth, deformity, or impairment of range of motion. No effusions, enthesitis, dactylitis Common Labs CBC Recent Labs Component Name 12/06/21 1339 07/31/21 1122 07/24/21 0950 WBC 7.0 6.1 5.7 HGB 13.5 13.4 13.5 MCV 88.6 88.2 86.0 PLTCOUNT 233 214 210 No results found for: NEUTABS, LYMPHS, MONO, EOS, BASO, GRANIMMABS Metabolic Profile Recent Labs Component Name 12/06/21 1339 07/31/21 1122 07/24/21 0950 07/05/21 1111 04/03/21 1240 NA - - - - 143 POTASSIUM 4.4 4.0 4.3 - 4.2 CL - - - - 109* CO2 25 25 26 - 25 BUN 13 14 13 - 15 CREATININE 0.97 0.89 1.04 - 1.06 GLUCOSE 92 129 102 - 95 CALCIUM 9.5 9.3 9.5 - 9.7 ANIONGAP - - - - 13 EGFR 109 120 100 - >90 AST 19 14 15 - 14 ALT 44 40 45 - 42 ALKPHOS 110 122 116 - 128 PROT - - - - 7.0 ALB - - - - 4.0 TBILI - - - - 0.3 - = values in this interval not displayed. No results found for: MG, PHOS, DBIL UA & UPC No results found for: SPECGRAVUA, PHUA, PROTEINUA, BLOODUA, LEUKOCYTEUA, NITRITEUA, GLUCOSEUA, KETONEUA, BILIRUBINUA, UROBILINUA, REFLXSTAT, URMIC, SQUAMOUS, TRANSEPIUA, RBCUA, WBCUA, BACTUA, EOSINU No results found for: PROTEINTO, CREATININEUR, [id number] No results for input(s): HCGURINE, HCGQUANT in the last 51469 hours. Latent Infections No results found for: HEPBSAG, HBVSAB, HEPBSAB, HEPBCAB, HEPCAB Lab Results Component Value Date/Time QUANTIFER 0.02 08/02/2021 10:18 AM QNTTBGOLD Negative 08/02/2021 10:18 AM QNTPLUSTB1 0.00 08/02/2021 10:18 AM QNTPLUSTB2 0.00 08/02/2021 10:18 AM QNTMITOGEN >10.00 08/02/2021 10:18 AM Immunology Labs Inflammatory Markers Recent Labs Component Name 08/02/21 1018 ESR 9 CRP 0.7* RA-related Auto-Ab's Lab Results Component Value Date/Time RF <15 08/02/2021 10:18 AM RA Negative 08/02/2021 10:18 AM CCPIGGIGA 2 08/02/2021 10:18 AM GONZALES-related Lab Results Component Value Date/Time ANAIGG None Detected 08/02/2021 10:18 AM No results for input(s): C3, C4 in the last 04036 hours. APLS-related Auto-Ab's No results found for: R6MOMCVPHV, A5AZZHTKKS, T0CGQOQLBM, GQVS5DWS, OWZE7OTN, CRDLPNIGM, CRDLPNIGG,CRDLPNIGA, DILUTEPT, DPTCFMRATIO, TT, PTTLA, DRVVTBASE, LABINTE Myopathy No results found for: CK, ALDOLASE, SAE1AB, NXP2AB, MDA5AB, EZQ0XAK, MYOINTERP, MI2AB, N751519, PL12AB, PL7AB, OJAB, EJAB, SRPAB, BC7KCMNQ, KUAB, SMITHRNPAB, NWXHJ637HD, IIB04QR, USC03YQ, DLVYBAEI3BOL, ACHBLOCKAB, ACHBINDAB Vasculitis and ANCAs No results found for: NEUTCYTOAB, ANTIPROT3, ANTIMPO, J9EOJDU Genetics Lab Results Component Value Date/Time HLAB27 Negative 08/02/2021 10:18 AM Gammopathy/Paraproteinemia No results found for: KAPPAFREE, LAMBDAFREE, KLFREERATIO, IGM, IGG, IGA Lab Results Component Value Date/Time PROT 7.0 04/03/2021 12:40 PM Other Labs Endocrine & Metabolic Recent Labs Component Name 04/03/21 1240 HGBA1C 5.3 Lab Results Component Value Date/Time PNYL08GH 52.0 04/03/2021 12:40 PM Heme No results found for: RETICCTPCT, RETICULOCYTE, IRON, FERRITIN, TRANSFERRIN, TRANSFERRSAT, TIBC, FIBRINOGEN, DDIMER, VITB12, FOLATE, HAPTOGLOBIN, LDHTOTAL No results for input(s): PT, INR, PTT in the last 18208 hours. Renal No results found for: CALCIUMION, PHBLD, IONCAART, MAGNESIUM, PHOS, SODIUMRAN, POTASSIUMUR, CHLORIDER Cardiac & Lipids No results for input(s): TROPONINI, CKMB, BNP in the last 48430 hours. Recent Labs Component Name 04/03/21 1240 CHOL 141 TRIG 143 HDL 27* LDLCALC 85 Respiratory No results found for: SARSCOV2, RINFLUANAA, RINFLUBNAA, INFLUARAPID, INFLUBRAPID, INFLUCNTRL, STREPARAPID, STREPAQC Hepatobiliary & GI No results found for: GGT, LIPASE, S7DSABJYMQSV, CMVPCR, CMVSOURCE, GDHANTIGEN, CDIFFTOXINAB, CDIFFINTRP, GLIADINIGG, GLIADINIGA, ENDOMYSIA, TTRANIGA, TTRANIGG Drug Screen No results found for: THCUR, PCPUR, COCAINEUR, METHAMPHETUR, OPIATESUR, AMPHETUR, BENZODIAZUR, TCAUR, METHADONEUR, BARBITURATUR, OXYCODONEUR, PROPOXYUR Synovial Fluid No results found for: COLORFL, CLARITYFLUID, BFVOLUME, VISCOSITY, WBCFLUID, RBCFL, CRYSTALEXAM, DIFF, BFBAND, BFSEGS, BFLYMPH, BFMONO, BFEOS, BFMACRO, PATHDIFFRVW Neuro/CSF No results found for: GLUCSF, PROTEINCSF, QGM8JIMSYV, RFW8EBJJYF, TGUY6WOM, COCCIDIGG, SGV8WUJ, CRYPTOAGCSF, ENTEROVIRPCR, OLIGOBAND, OLIGOBANDNUM, IGG, HDF7KOI, ALBUMINMS, GXLYUOL3RPP, ALBUMININDEX,IGGINDEX, IGGALBRATIO, SYNTHESRTE, OLIGOCINTRP, TOXOPLASIGG, CYSTICERO Body Fluid No results found for: LABLD, GROSSDESCRIP, MICROPDESCR STIs (HIV, GC, Trich, Syphilis) No results found for: HIV12, QQY5MHYZYH, IPG0UMI37QJJ, CHLAMDIA, CHLTRNAA, GC, NGONORRNAA, TRICVAGAP, TRICHVAGBY, TPALLIDUM Cultures & Other Micro No results found for: URINECULT, BLOODCULT, BDERMAGUR, BDERMINTERP For assessment and recommendations, please see above. This note was generated using the [employer] speech recognition system. Grammatical errors, random wordinsertions, substitutions, deletions, pronoun errors, and incomplete sentences are an occasional consequence of this technology due to software limitations. Prior to signing the note, I reviewed it for misspellings or errors related to dictation to a reasonable extent, although it is possible that not all errors were caught or corrected. If there are questions or concerns about the content of this note or information contained within the body of this dictation, they should be addressed directlywith the author for clarification. Thank you. documented in this encounter Plan of Treatment Upcoming Encounters Date Type Department Care Team (Late st Contact Info) Description 10/21/2024 1:30 PM CDT Office Visit [facility] - Rheumatology [address] [place] [phone] Paulino Youngblood MD [address] [place] [address] [place] [phone] 11/30/2024 3:00 PM CDT Office Visit [facility] - ENT [address] [place] [address] [phone] Froilan Monae MD [address] [place] [address] DEPT [place] [address] 02/15/2025 10:00 AM CDT Office Visit [facility] - Internal Med [address] [place] [phone] Richard Chacon III, MD [address] [place] [address] [place] [phone] documented as of this encounter Visit Diagnoses Diagnosis Other psoriasis- Primary Psoriatic arthritis (HCC) Psoriatic arthropathy High risk medication use Encounter for long-term (current) use of other medications documented in this encounter Care Teams Clock And Watch Hands Mounter Relationship Specialty Start Date End Date Christa Velez APRN-SENIOR UI UX DEVELOPER [address] [place] [phone] Psychiatrist Nurse Practitioner 08/07/21 documented as of this encounter
--- OUTSIDE RECORDS SUMMARY | 2024-07-15 18:38 | XMS_ITS | Encounter Summary ---
Author Organization [facility] Address [address] [place] [address] Care Team Providers Care Ichthyology Teacher Name Role Phone Christa Velez APRN-PURCHASING AND CLAIMS SUPERVISOR Unavailable [phone] Encounter Details Date Type Department Care Team (Late Contact Info) Description 10/24/2021 Orders Only [facility] [address] [place] [phone] Bridget Rey MD [address] [place], [place] [phone] Other psoriasis Social History Tobacco Use Types Packs/Day Years [...] Office Visit [facility] - Rheumatology [address] [place] [phone] Paulino Youngblood MD [facility] [facility] [place] [phone] 11/30/2024 3:00 PM CDT Office Visit [facility] - ENT [address] [place] [address], [place] [phone] Froilan Monae MD [address] [place] [address] [place] [address] 02/15/2025 10:00 AM CDT Office Visit [facility] - Internal Med [address] [place] [phone] Richard Chacon III, MD [address] [place] [address] [place] [phone] documented as of this encounter Visit Diagnoses Diagnosis Other psoriasis documented in this encounter Care Teams Ichthyology Teacher Relationship Specialty Start Date End Date Christa Velez APRN-PURCHASING AND CLAIMS SUPERVISOR [address] [place] [address] Psychiatrist Nurse Practitioner 08/07/21 documented as of this encounter
--- OUTSIDE RECORDS SUMMARY | 2024-07-15 18:38 | XMS_ITS | Encounter Summary ---
Author Organization [facility] Health Address [address] [facility] [place] [address] Care Team Providers Care Operations Trainer Name Role Phone Unavailable Primary Care Provider Unavailabl e Encounter Details Date Type Department Care Team (Late Contact Info) Description 07/14/2021 Orders Only [facility] [address] [place] [address] Kirk Sue MD [address] [place] [address] High risk medications (not anticoagulants) long-term use [...] Office Visit [facility] - Rheumatology [address] [place] [address], [place] [phone] Paulino Youngblood MD [address] [place] [address] [place] [phone] 11/30/2024 3:00 PM CDT Office Visit [facility] - ENT [address] [place] [address], [place] [phone] Froilan Monae MD [address] [place] [address] [address] [place] [address] 02/15/2025 10:00 AM CDT Office Visit [facility] - Internal Med [address] [place] [address], [place] [phone] Richard Chacon III, MD [address] [place] [address] [address] [place] [phone] documented as of this encounter Procedures Procedure Name Priority Date/Time Associated Diagnosis Comments CBC W AUTO DIFFERENTIAL Routine 07/17/2021 10:26 AM DIALYSIS RN High risk medications (not anticoagulants) long-term use COMPREHENSIVE METABOLIC PANEL Routine 07/17/2021 10:26 AM DIALYSIS RN High risk medications (not anticoagulants) long-term use documented in this encounter Results * COMPREHENSIVE METABOLIC PANEL (07/17/2021 10:26 AM DIALYSIS RN) Glucose 94 65 - 139 mg/dL [facility] Comment: ? Non-fasting reference interval BUN 15 7 - 25 mg/dL [facility] Creatinine 0.99 0.60 - 1.35 mg/dL [facility] eGFR by MDRD 106 > OR = 60 mL/min/1. 73m2 [facility] eGFR by MDRD 123 > OR = 60 mL/min/1. 73m2 [facility] BUN/Creatinine Ratio NOT APPLICABLE 6 - 22 (calc) [facility] Sodium 138 135 - 146 mmol/L [facility] Potassium 4.0 3.5 - 5.3 mmol/L [facility] Chloride 102 98 - 110 mmol/L [facility] CO2 22 20 - 32 mmol/L [facility] Calcium 9.2 8.6 - 10.3 mg/dL [facility] Protein Total 6.6 6.1 - 8.1 g/dL [facility] Albumin 4.3 3.6 - 5.1 g/dL [facility] Globulin Total 2.3 1.9 - 3.7 g/dL (calc) [facility] Albumin/Globuli n Ratio 1.9 1.0 - 2.5 (calc) [facility] Bilirubin Total 0.4 0.2 - 1.2 mg/dL [facility] Alkaline Phosphatase 116 36 - 130 U/L [facility] AST 14 10 - 40 U/L [facility] ALT 39 9 - 46 U/L [facility] Comment: Test Performed at: [facility] ??[phone] SIRIA AGUILAR DO,MPH Blood BLOOD SPECIMEN / Unknown 07/17/2021 10:26 AM DIALYSIS RN 07/17/2021 10:27 AM DIALYSIS RN Estee Peck MD LAB - CHEMISTRY ORDE [facility] [address] [place] [address] * CBC WITH DIFFERENTIAL (07/17/2021 10:26 AM DIALYSIS RN) White Blood Cell Count 6.6 3.8 - 10.8 Thousand/u L [facility] RBC 4.64 4.20 - 5.80 Million/uL [facility] Hemoglobin 13.2 13.2 - 17.1 g/dL [facility] Hematocrit 40.0 38.5 - 50.0 % [facility] MCV 86.2 80.0 - 100.0 fL [facility] MCH 28.4 27.0 - 33.0 pg [facility] MCHC 33.0 32.0 - 36.0 g/dL [facility] RDW 13.0 11.0 - 15.0 % [facility] Platelet Count 212 140 - 400 Thousand/u L [facility] MPV 10.2 7.5 - 12.5 fL [facility] Neutrophil Absolute 4521 1500 - 7800 cells/uL [facility] Lymphocytes Absolute 1683 850 - 3900 cells/uL [facility] Absolute Monocytes 257 200 - 950 cells/uL [facility] Eosinophils Absolute 99 15 - 500 cells/uL [facility] Basophils Absolute 40 0 - 200 cells/uL [facility] Granulocytes % 68.5 % [facility] Lymphocytes % 25.5 % [facility] Monocytes % 3.9 % [facility] Eosinophils % 1.5 % [facility] Basophils % 0.6 % [facility] Comment: REPORT COMMENT: VARIFIED ALL INFO FASTING:NO Test Performed at: [facility] ??[phone] SIRIA AGUILAR DO,MPH Blood BLOOD SPECIMEN / Unknown 07/17/2021 10:26 AM DIALYSIS RN 07/17/2021 10:27 AM DIALYSIS RN Estee Peck MD LAB - HEMATOLOGY ORD ERABLES [facility] [address] [place] [address] documented in this encounter Visit Diagnoses Diagnosis High risk medications (not anticoagulants) long-term use Encounter for long-term (current) use of other medications documented in this encounter
--- OUTSIDE RECORDS SUMMARY | 2024-07-15 18:38 | XMS_ITS | Encounter Summary ---
Author Organization [facility] Health Address [address] [place] [address] Care Team Providers Care Hair Tinter Name Role Phone AyakacharlotteChrista APRN-ASSISTANT DRAFTER Unavailable [phone] Reason for Visit * Reason Comments Follow-up Psoriasis; legs, arm s, and feet Encounter Details Date Type Department Care Team (Late st Contact Info) Description 10/16/2021 10:20 AM CDT Office Visit [facility] [address] [place] [address], [place] [phone] Estee Peck MD [address] [place] [address] 3 [place] [address] Other psoriasis (Primary Dx); High risk medications (not anticoagulants) long-term use [...] on file documented as of this encounter Patient Instructions * Patient Instructions* Edgar Lagos MD - 10/16/2021 11:29 AM CDT Pour 1/4 cup of household bleach to entire tub of water for bath. Do this once weekly. Get labs done today please. Ok to start cosentyx if covered by insurance. If you start cosentyx, then plan to stop methotrexate Follow up in 6 months documented in this encounter Progress Notes * Edgar Lagos MD - 10/16/2021 10:57 AM CDT Chief Complaint Patient presents with ??? Follow-up Psoriasis; legs, arms, and feet HPI: Manoj [place] is a 25 year old male who presents with complaint of psoriasis. Concerns: 1) Psoriasis - onset age 11 - affected areas: trunk and extremities - after last visit, patient's pso and arthritis started to worsen despite use of clobetasol ointment - started on MTX by Dr Peck in 05/2021 - he was seen by rheumatology and there was concern for PsA based on exam despite no lab/imaging findings of inflammatory arthritis - rheumatology increased MTX to 20mg PO qwk in 08/2021 - per most recent rheum note, plan was made to start patient on cosentyx - today patient reports his psoriasis has improved slightly from the worst point in flare, though overall condition is still worsened compared to last visit - patient states that rheumatology wanted patient to follow up with dermatology prior to starting cosentyx - current treatment: - mtx 20mg qwk + FA 1mg qd - clobetasol ointment bid prn - calcipotriene cream bid prn - ketoconazole shampoo tiw Review of systems negative except as stated above. Allergies and medications were reviewed and verified. Past medical history, social history, and family history were reviewed. Recent Labs Component Name 07/31/21 1122 07/24/21 0950 07/17/21 1026 WBC 6.1 5.7 6.6 RBC 4.56 4.73 4.64 HGB 13.4 13.5 13.2 HCT 40.2 40.7 40.0 MCV 88.2 86.0 86.2 MCHC 33.3 33.2 33.0 PLTCOUNT 214 210 212 LYMPHPCT 26.4 23.0 25.5 EOSINPCT 1.2 1.4 1.5 BASOPHILPCT 0.5 0.5 0.6 Recent Labs Component Name 07/31/21 1122 07/24/21 0950 07/17/21 1026 SODIUM 139 140 138 POTASSIUM 4.0 4.3 4.0 CHLORIDE 107 105 102 CO2 25 26 22 BUN 14 13 15 CREATININE 0.89 1.04 0.99 GLUCOSE 129 102 94 CALCIUM 9.3 9.5 9.2 ALT 40 45 39 ALKPHOS 122 116 116 AST 14 15 14 TBIL 0.3 0.5 0.4 TPROT 6.5 6.4 6.6 EGFR 120 100 106 EGFRAFR 139 116 123 ALBUMIN 4.4 4.4 4.3 Physical exam: No acute distress. Mood clear, affect appropriate, alert. Cognitive delay. 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 - BSA ~20%, though many lesions appear to be improving/resolving - agree with rheum plan to start patient on cosentyx - continue methotrexate 20mg qwk + folic acid 1mg qd per rheum - patient to have labs (CBC, CMP) completed today - continue clobetasol ointment bid prn plaques - continue calcipotriene cream bid prn plaques - continue keto shampoo tiw scalp High risk med Check CBC and CMP Return to clinic in 6 months Billing Guide Edgar Lagos MD [facility] Dermatology Resident, PGY-II Associated attestation - Estee Peck MD - 10/16/2021 11:53 AM CDT Attending Physician Supervisory Note I have seen and examined the patient with the resident and I agree with the findings and plan of care as documented by the resident. Date of Service : 10/16/2021 Estee Peck MD Industrial Seamstress Department of Dermatology [facility] documented in this encounter Plan of Treatment Upcoming Encounters Date Type Department Care Team (Late st Contact Info) Description 10/21/2024 1:30 PM CDT Office Visit [facility] - Rheumatology [address] [place] [phone] Paulino Youngblood MD [address] [place] [address] [place] [address] 11/30/2024 3:00 PM CDT Office Visit [facility] - ENT [address] [place] [phone] Froilan Monae MD [address] [place] [address] 2L DEPT [place] [address] 02/15/2025 10:00 AM CDT Office Visit [facility] - Internal Med [address] [place] [phone] Richard Chacon III, MD [address] [place] [address] 2L [place] [phone] documented as of this encounter Visit Diagnoses Diagnosis Other psoriasis- Primary High risk medications (not anticoagulants) long-term use Encounter for long-term (current) use of other medications documented in this encounter Care Teams Hair Tinter Relationship Specialty Start Date End Date Christa Velez APRN-JESSICA [address] [place] [address] Psychiatrist Nurse Practitioner 08/07/21 documented as of this encounter
--- OUTSIDE RECORDS SUMMARY | 2024-07-15 18:38 | XMS_ITS | Encounter Summary ---
Author Organization [facility] Address [address] [place] [address] Care Team Providers Care Hydrologist Name Role Phone Christa Velez APRN-ORGAN PIPE MAKER METAL Unavailable [phone] Reason for Visit * Reason Onset Date Comments MEDICATION REFILL 11/13/2021 Encounter Details Date Type Department Care Team (Late st Contact Info) Description 11/13/2021 Refill [facility], [place] [phone] Vivian Tello MD No info available MEDICATION REFILL Social History Tobacco Use Types [...] encounter Miscellaneous Notes * Telephone Encounter - Candy Caraballo - 11/13/2021 4:06 PM CDT Refill Request Manoj [place] UVALDO: 09.06.21 NOV scheduled: 12/06/2021 LRF: 2.9.22 Qty Disp: 120 # of refills: Allergies: Allergies Allergen Reactions ??? Food Headache Spaghetti sauce and mozzarella cheese Pended Medication Order: Requested Prescriptions No prescriptions requested or ordered in this encounter documented in this encounter Plan of Treatment Upcoming Encounters Date Type Department Care Team (Late st Contact Info) Description 10/21/2024 1:30 PM CDT Office Visit [facility] - Rheumatology [address] [place] [phone] Paulino Youngblood MD [address] [place] [address] [place] [phone] 11/30/2024 3:00 PM CDT [facility] [address] [place] [phone] Froilan Monae MD [address] [place] [address] [place] [address] 02/15/2025 10:00 AM CDT [facility] Med [address] [place] [phone] Richard Chacon III, MD [address] [place] [address] 2L [place] [phone] documented as of this encounter Visit Diagnoses Diagnosis Arthralgia, unspecified joint documented in this encounter Care Teams Hydrologist Relationship Specialty Start Date End Date Christa Velez APRN-ORGAN PIPE MAKER METAL [address] [place] [address] Psychiatrist Nurse Practitioner 08/07/21 documented as of this encounter
--- OUTSIDE RECORDS SUMMARY | 2024-07-15 18:38 | XMS_ITS | Encounter Summary ---
Author Organization [facility] Health Address [address] [place] [address] Care Team Providers Care Copy Operator Name Role Phone Christa Velez APRN-[facility] Unavailable [phone] Oswaldo BOSCH MD, Richard Sanchez Primary Care Provider [phone] Morgan Randhawa MD Unavailable Encounter Details Date Type Department Care Team (Latest Contact Info) Description 06/06/2022 Travel Social History Tobacco Use Types Packs/Day [...] Office Visit [facility] - Rheumatology [address] [place] [phone] Paulino Youngblood MD [address] [place] [address] [place] [phone] 11/30/2024 3:00 PM CDT Office Visit [facility] - ENT [address] [place] [address] [place] [phone] Froilan Monae MD [address] [place] [address] 2L DEPT [place] [address] 02/15/2025 10:00 AM CDT Office Visit [facility] - Internal Med [address] [place] [phone] Richard Chacon III, MD [address] [place] [address] 2[place] [phone] documented as of this encounter Visit Diagnoses Not on filedocumented in this encounter Care Teams Copy Operator Relationship Specialty Start Date End Date Richard Chacon III, MD [address] [place] [address] 2[place] [phone] PCP - General Internal Medicine 01/29/22 Christa Velez APRN-ACTIVITY SPECIALIST [address] [facility] 2 [place] [phone] Psychiatrist Nurse Practitioner 08/07/21 Morgan Randhawa MD [address] [facility] [place] [phone] Resident - PCP Internal Medicine 01/29/22 documented as of this encounter
--- OUTSIDE RECORDS SUMMARY | 2024-07-15 18:38 | XMS_ITS | Encounter Summary ---
Author Organization [facility] Address [address] [facility] [place] [address] Care Team Providers Care Stoker Erector Name Role Phone AyakacharlotteChrista HARVEY-CORN SHREDDER Unavailable [phone] Reason for Visit * Reason Onset Date Comments Medication Prior Auth Request 10/26/2021 Co sentyx Auto-Injectors--approved Encounter Details Date Type Department Care Team (Late st Contact Info) Description 10/26/2021 Telephone [facility] [address] [facility], [facility] [place] [address] Vivian Tello MD No info available Medication Prior Auth Request (Cosentyx Auto-Injectors--approv ed) Social History Tobacco Use Types Packs/Day Years [...] encounter Miscellaneous Notes * Telephone Encounter - Zoey Cortez LPN - 10/26/2021 2:20 PM CDT This medication or product was previously approved on [id number] from 2021-10-26 to 2022-06-23 through [facility] D [facility] using Jarvis: [id number] for 8 Pens/28 days to include the loading dose. DX: L40.9 Ps, L40.50 PsA Current Meds: naproxen BID (07/2021); MTX/FA (previous Provider); Cosentyx (09/2021). documented in this encounter Plan of Treatment Upcoming Encounters Date Type Department Care Team (Late st Contact Info) Description 10/21/2024 1:30 PM CDT Office Visit [facility] - Rheumatology [address] [place] [phone] Paulino Youngblood MD [address] [place] [address] [place] [phone] 11/30/2024 3:00 PM CDT Office Visit [facility] - ENT [address] [place] [phone] Froilan Monae MD [address] [place] [address] [place] [address] 02/15/2025 10:00 AM CDT Office Visit [facility] - Internal Med [address] [place] [phone] Richard Chacon III, MD [address] [place] [address] 2L [place] [phone] documented as of this encounter Visit Diagnoses Not on filedocumented in this encounter Care Teams Stoker Erector Relationship Specialty Start Date End Date Christa Velez APRN-CORN SHREDDER [address] [place] [address] Psychiatrist Nurse Practitioner 08/07/21 documented as of this encounter
--- OUTSIDE RECORDS SUMMARY | 2024-07-15 18:38 | XMS_ITS | Encounter Summary ---
Author Organization [facility] Address [address] [facility] [place] [address] Care Team Providers Care Senior Business Development Manager Name Role Phone AgustinChrista HARVEY-SENIOR IT SPECIALIST Unavailable [phone] Oswaldo BOSCH MD, Richard Sanchez Primary Care Provider [phone] Morgan Randhawa MD Unavailable Pineda Randhawa MD Unavailable Will Naqvi MD Unavailable Reason for Visit * Reason Comments Refill Request Encounter Details Date Type Department Care Team (Late st Contact Info) Description 01/17/2023 Refill [facility], [place] [address] Pineda Randhawa MD [address] [place] [address] Rd [address] [place] [address] Refill Request Social History Tobacco Use [...] Exposure Response Date Recorded In the last 10 days, have yo u been in contact with someone who was confirmed or suspected to have Coronavirus/COVID-19? No / Unsure 12/26/2022 3:32 PM CDT documented as of this encounter Miscellaneous Notes * Telephone Encounter - Zoey Cortez LPN - 01/18/2023 8:23 AM CDT Refill Request Manoj [place] UVALDO: 12/26 due: NOV scheduled: 07/03/2023 LRF: 10/01 Qty Disp: 2mL # of refills: 3 Labs: 06/06 KB Allergies: Allergies Allergen Reactions ??? Food Headache Spaghetti sauce and mozzarella cheese Pended Medication Order: Requested Prescriptions Pending Prescriptions Disp Refills ??? Cosentyx Sensoready, 300 MG, 150 MG/ML SOAJ pen [Pharmacy Med Name: COSENTYX 150MG/ML SENSRDY PEN 2X1ML] 2 mL 3 Sig: INJECT 300MG UNDER THE SKIN EVERY 28 DAYS documented in this encounter Plan of Treatment Upcoming Encounters Date Type Department Care Team (Late st Contact Info) Description 10/21/2024 1:30 PM CDT Office Visit [facility] - Rheumatology [address] [place] [phone] Paulino Youngblood MD [address] [place] [address] [place] [address] 11/30/2024 3:00 PM CDT Office Visit [facility] - ENT [address] [place] [phone] Froilan Monae MD [address] [place] [address] [place] [address] 02/15/2025 10:00 AM CDT [facility] [address] [place] [phone] Richard Chacon III, MD [address] 2[place] [address] documented as of this encounter Visit Diagnoses Not on filedocumented in this encounter Care Teams Senior Business Development Manager Relationship Specialty Start Date End Date Richard Chacon III, MD [address] 2L [place] [address] PCP - General Internal Medicine 01/29/22 Christa Velez APRN-SENIOR IT SPECIALIST [address] [phone] Psychiatrist Nurse Practitioner 08/07/21 Morgan Randhawa MD [address] [place] [place] [phone] Resident - PCP Internal Medicine 01/29/22 Pineda Randhawa MD [address] [place] [phone] Resident Rheumatology 12/24/22 Will Naqvi MD [address] 2L [place] [phone] Activities Concierge Rheumatology 12/24/22 documented as of this encounter
--- OUTSIDE RECORDS SUMMARY | 2024-07-15 18:38 | XMS_ITS | Encounter Summary ---
Author Organization [facility] Health Address [address] [facility] [place] [address] Care Team Providers Care Optical Dispenser Name Role Phone Christa Velez APRN-[facility] Unavailable [phone] Oswaldo BOSCH MD, Richard Sanchez Primary Care Provider [phone] Morgan Randhawa MD Unavailable Reason for Visit * Reason Comments Establish Care Encounter Details Date Type Department Care Team (Latest Contact Info) Description 03/19/2022 3:00 PM CDT Office Visit [facility] Otolaryngology [address] [place] [phone] Froilan Monae MD [address] [place] [address] [place] [address] Mixed conductive and sensorineural hearing loss of both ears (Primary Dx); Dysfunction of both eustachian tubes; Perforation of both tympanic membranes Social History Tobacco Use Types Packs/Day Years [...] Reading Time Taken Comments Blood Pressure 113/78 03/19/2022 2:48 PM CDT Pulse 86 03/19/2022 2:48 PM CDT Temperature - - Respiratory Rate 18 03/19/2022 2:48 PM CDT Oxygen Saturation - - Inhaled Oxygen Concentration - - Weight 113.4 kg (250 lb) 03/19/2022 2:48 PM CDT Height 172.7 cm (5' 8 ) 03/19/2022 2:48 PM CDT Body Mass Index 38.01 03/19/2022 2:48 PM CDT documented in this encounter Patient Instructions * Patient Instructions* Tami Perez - 03/19/2022 2:50 PM CDT Thank you for visiting [facility] Otolaryngology - Head & Neck Surgery. We [...] an appointment, please call our office at [phone] Saturday through Saturday from 8:30 am to4:30 pm. You can also request a routine appointment through your [email or web address] account. Prescription Refills Contact your pharmacy to request all refills. The pharmacy will need to fax the request to us at . Please allow a minimum of 48-72 hours for your prescription to be completed. Your pharmacy will notify you when your prescription is ready to be picked up. Medical Emergency / After Hours Contact Information If you have a medical emergency, please call 911 or go to the nearest emergency room. For urgent medical calls which cannot wait until the office opens, please call the medical exchangeat and ask the side seam machine operator to page the ENT physician mortgage professional. *Caller ID blocking service will need to be turned off for your call to be returned. We also specialize in Hearing Aids, Allergy testing, swallowing disorders, voice problems, cancer diagnosis, and so much more. Visit our website at [email or web address] for information about our practice and an interactive health encyclopedia. documented in this encounter Progress Notes * Froilan Monae MD - 03/19/2022 3:00 PM CDT History of Present Illness: 26 year old on disability with a h/o migraines, bipolar AU ETD, s/p PET at least once around age 6,now with AU TM perf He has had mild bother from his hearing loss and thinks it may have gotten worse over the last few months. No drainage from the ears. No head imaging in [facility] Epic No recent relevant records in [...] Outpatient Medications Medication Sig Dispense Refill ??? buPROPion SR 12hr (WELLBUTRIN SR) 200 MG tablet Take 200 mg by mouth 2 times daily ??? calcipotriene (DOVONEX) 0.005 % cream Apply to affected area 2 times daily 60 g 3 ??? citalopram (CELEXA) 40 MG tablet TAKE 1 TABLET BY MOUTH EVERY DAY IN THE MORNING ??? clobetasol (TEMOVATE) 0.05 % ointment APPLY TOPICALLY TO AFFECTED AREA(S) OF KNEES AND ELBOWS TWICE DAILY 60 g 3 ??? folic acid (FOLVITE) 1 MG tablet Take 1 daily except the day you take methotrexate 30 tablet 11 ??? ketoconazole (NIZORAL) 2 % shampoo Apply to wet hair, leave on for 3 minutes, then rinse; threetimes weekly. 30 days supply 120 mL 11 ??? melatonin 3 MG tablet Take 1 (one) tablet by mouth at bedtime for 90 days 90 tablet 4 ??? methotrexate 2.5 MG tablet Take 8 (eight) tablets by mouth every 7 days 32 tablet 2 ??? olanzapine (ZYPREXA) 10 MG tablet Take 10 mg by mouth once daily ??? OLANZapine (ZYPREXA) 2.5 MG tablet TAKE 1 TABLET BY MOUTH EVERY DAY IN THE MORNING (Patient nottaking: Reported on 03/19/2022) ??? secukinumab (Cosentyx Sensoready Pen) 150 MG/ML auto-injector Inject 300 mg (2mL) subcutaneously at weeks 0, 1, 2, 3, and 4 and every 4 weeks thereafter 12 mL 0 No current facility-administered medications for this visit. [...] - Type 2 Sister Vitals BP 113/78 Pulse 86 Resp 18 Ht 5' 8 (1.727 m) Wt 250 lb (113.4 kg) Body mass index is 38.01 kg/m??. Physical Exam: Constitutional: Alert, No acute [...] perforation with a large anterior bony overhang. Middle ear space aerated. No mastoid tenderness. Left ear: There is an anterior approximately 50 or 60% perforation with a large anterior canal bony overhang.Middle ear space aerated. No mastoid tenderness. Assessment and Plan: 1. Right eustachian tube dysfunction with tympanic membrane perforation and associated mixed hearing loss. 2. Left eustachian tube dysfunction with tympanic membrane perforation associated mixed hearing loss. We discussed the options for management which [...] Procedure Notes * Froilan Monae MD - 03/19/2022 3:34 PM CDTAssociated Order(s): PROC MICROSCOPIC EAR EXAM Procedure(s): IN EAR MICROSCOPY EXAMINATION Pre-Procedure Diagnose(s): Dysfunction of both eustachian tubes Procedure: Microscopic exam of the ear(s) Findings: [...] Visit [facility] - Rheumatology [address] [place] [phone] Paulino Youngblood MD [address] [place] [address] [place] [address] 11/30/2024 3:00 PM CDT Office Visit [facility] - ENT [address] [place] [address], [place] [phone] Froilan Monae MD [address] [place] [address] 02/15/2025 10:00 AM CDT Office Visit [facility] - Internal Med [address] [place] [address], [facility] [place] [address] Richard Chacon III, MD [address] [place] [address] 2[place] [phone] documented as of this encounter Procedures Procedure Name Priority Date/Time Associated Diagnosis Comments IN EAR MICROSCOPY EXAMINATION Routine 03/19/2022 3:34 PM CDT Dysfunction of both eustachian tubes documented in this encounter Results * IN EAR MICROSCOPY EXAMINATION (03/19/2022 3:34 PM CDT) [...] documented in this encounter Visit Diagnoses Diagnosis Mixed conductive and sensorineural hearing loss of both ears- Primary Mixed hearing loss, bilateral Dysfunction of both eustachian tubes Dysfunction of Eustachian tube Perforation of both tympanic membranes Perforation of tympanic membrane, unspecified documented in this encounter Care Teams Optical Dispenser Relationship Specialty Start Date End Date Richard Chacon III, MD [address] [place] [address] 2[place] [phone] PCP - General Internal Medicine 01/29/22 Christa Velez APRN-MEDIA SENIOR RECRUITER [address] [place] [address] Psychiatrist Nurse Practitioner 08/07/21 Morgan Randhawa MD [address] [place] [address] [place] [address] Resident - PCP Internal Medicine 01/29/22 documented as of this encounter
--- OUTSIDE RECORDS SUMMARY | 2024-07-15 18:38 | XMS_ITS | Encounter Summary ---
Author Organization [facility] Health Address [address] [place] [address] Care Team Providers Care Patrol Captain Name Role Phone Christa Velez APRN-[facility] Unavailable [phone] Oswaldo BOSCH MD, Richard Sanchez Primary Care Provider [phone] Morgan Randhawa MD Unavailable Encounter Details Date Type Department Care Team (Late st Contact Info) Description 04/19/2022 Orders Only [facility] [address] [place] [phone] Pineda Randhawa MD [address] [place] [phone] Social History Tobacco Use Types Packs/Day Years [...] Office Visit [facility] Rheumatology [address] [place] [phone] Paulino Youngblood MD [address] [place] [address] [place] [phone] 11/30/2024 3:00 PM CDT Office [facility] ENT [address] [place] [phone] Froilan Monae MD [address] [place] [address] 2L [place] [address] 02/15/2025 10:00 AM CDT Office Visit [facility] - Internal Med [address] [place] [phone] Richard Chacon III, MD [address] [place] [address] 2[place] [phone] documented as of this encounter Visit Diagnoses Not on filedocumented in this encounter Care Teams Patrol Captain Relationship Specialty Start Date End Date Richard Chacon III, MD [address] [place] [address] 2[place] [phone] PCP - General Internal Medicine 01/29/22 Christa Velez APRN-[employer] [address] [place] [address] Psychiatrist Nurse Practitioner 08/07/21 Morgan Randhawa MD [address] [facility] [place] [phone] Resident - PCP Internal Medicine 01/29/22 documented as of this encounter
--- OUTSIDE RECORDS SUMMARY | 2024-07-15 18:38 | XMS_ITS | Encounter Summary ---
Author Organization [facility] Address [address] [facility] [facility] [place] [address] Care Team Providers Care Implementation Coordinator Name Role Phone Christa Velez APRN-STUDENT ACCOUNTS MANAGER Unavailable [phone] Encounter Details Date Type Department Care Team (Late Contact Info) Description 10/20/2021 Orders Only [facility] [address] [place] [address] Kirk Sue MD [address] [place], [place] [phone] High risk medications (not anticoagulants) long-term use [...] Office Visit [facility] - Rheumatology [address] [place] [address], [place] [phone] Paulino Youngblood MD [address] [place] [address] [place] [phone] 11/30/2024 3:00 PM CDT Office Visit [facility] - ENT [address] [place] [phone] Froilan Monae MD [address] [place] [address] [place] [address] 02/15/2025 10:00 AM CDT Office Visit [facility] - Internal Med [address] [place] [phone] Richard Chacon III, MD [address] [place] [address] [place] [phone] documented as of this encounter Visit Diagnoses Diagnosis High risk medications (not anticoagulants) long-term use Encounter for long-term (current) use of other medications documented in this encounter Care Teams Implementation Coordinator Relationship Specialty Start Date End Date Christa Velez APRN-JESSICA [address] [place] [address] Psychiatrist Nurse Practitioner 08/07/21 documented as of this encounter
--- OUTSIDE RECORDS SUMMARY | 2024-07-15 18:38 | XMS_ITS | Encounter Summary ---
Author Organization [facility] Health Address [address] [place] [address] Care Team Providers Care Service Superintendent Name Role Phone Christa Velez APRN-[facility] [phone] Reason for Visit * Reason Onset Date Comments MEDICATION REFILL 01/23/2022 Encounter Details Date Type Department Care Team (Late st Contact Info) Description 01/23/2022 Refill [facility] [address] [place] [address], [place] [phone] Malcolm Bolivar MD [address] [place] [address] [place] [phone] MEDICATION REFILL Social History Tobacco Use Types [...] Telephone Encounter - Miguel Ángel Harris - 01/23/2022 11:35 AM CDT Refill Request Manoj Horner UVALDO:09/06/2021 NOV scheduled: 06/06/2022 LRF: 10/17/2021 Qty Disp: 150 MG # of refills: 0 Allergies: Allergies Allergen Reactions ??? Food Headache Spaghetti sauce and mozzarella cheese Pended Medication Order: Requested Prescriptions Pending Prescriptions Disp Refills ??? secukinumab (COSENTYX SENSOREADY PEN) 150 MG/ML auto-injector 12 mL 0 Sig: Inject 300 mg (2mL) subcutaneously at weeks 0, 1, 2, 3, and 4 and every 4 weeks thereafter documented in this encounter Plan of Treatment Upcoming Encounters Date Type Department Care Team (Late st Contact Info) Description 10/21/2024 1:30 PM CDT Office Visit [facility] - Rheumatology [address] [place] [phone] Paulino Youngblood MD [address] [place] [address] [place] [phone] 11/30/2024 3:00 PM CDT Office Visit [facility] - ENT [address] [place] [phone] Froilan Monae MD [address] [place] [address] [place] [address] 02/15/2025 10:00 AM CDT Office Visit [facility] - Internal Med [address] [place] [phone] Richard Chacon III, MD [address] [place] [address] [place] [phone] documented as of this encounter Visit Diagnoses Diagnosis Psoriatic arthritis (HCC)- Primary Psoriatic arthropathy Other psoriasis documented in this encounter Care Teams Service Superintendent Relationship Specialty Start Date End Date Christa Velez APRN-BLOCK HANDLER [address] [place] [address] Psychiatrist Nurse Practitioner 08/07/21 documented as of this encounter
--- OUTSIDE RECORDS SUMMARY | 2024-07-15 18:38 | XMS_ITS | Encounter Summary ---
Author Organization [facility] Address [address] [facility] [place] [address] Care Team Providers Care Home Energy Inspector Name Role Phone Christa Velez APRN-ANIMAL CARE WORKER Unavailable [phone] Encounter Details Date Type Department Care Team (Late Contact Info) Description 09/08/2021 Orders Only [facility] [address] [place] [address] Kirk Sue MD [address] [place], [place] [phone] High risk medications (not anticoagulants) long-term use [...] Visit [facility] Rheumatology [address] [place] [address], [place] [phone] Paulino Youngblood MD [address] [place] [address] [place] [phone] 11/30/2024 3:00 PM CDT Office Visit [facility] - ENT [address] [place] [phone] Froilan Monae MD [address] [place] [address] [place] [address] 02/15/2025 10:00 AM CDT Office Visit [facility] - Internal Med [address] [place] [phone] Richard Chacon III, MD [address] [place] [address] [place] [phone] documented as of this encounter Visit Diagnoses Diagnosis High risk medications (not anticoagulants) long-term use Encounter for long-term (current) use of other medications documented in this encounter Care Teams Home Energy Inspector Relationship Specialty Start Date End Date Christa Velez APRN-JESSICA [address] [place] [phone] Psychiatrist Nurse Practitioner 08/07/21 documented as of this encounter
--- OUTSIDE RECORDS SUMMARY | 2024-07-15 18:38 | XMS_ITS | Encounter Summary ---
Author Organization [facility] Health Address [address] [facility] [place] [address] Care Team Providers Care Binding Dyer Name Role Phone Christa Velez APRN-[facility] Unavailable [phone] Oswaldo BOSCH MD, Richard Sanchez Primary Care Provider [phone] Morgan Randhawa MD Unavailable Reason for Referral * Evaluate & Treat (Routine) - Closed Specialty Diagnoses / Procedures Referred By Contdaphne t Referred To Contact ENT-Otolaryngology Diagnoses Hearing trouble, bilateral Richard Chacon III, MD [address] [place] [phone] [facility] [place] [address] [address] Referral ID Status Reason Start Date Expiration Date V isits Requested Visits Authorized [id number] Closed Specialty Services Required 01/29/2022 01/29/2023 30 30 Reason for Visit * Reason Comments Establish Care Encounter Details Date Type Department Care Team (Late st Contact Info) Description 01/29/2022 3:00 PM CDT Office Visit [facility] [address] [place] [phone] Richard Chacon III, MD [address] [phone] Class 2 obesity with body mass index (BMI) of 37.0 to 37.9 in adult, unspecified obesity type, unspecified whether serious comorbidity present (Primary Dx); Routine general medical examination at health care facility; Insomnia, unspecified type; Hearing trouble, bilateral; Routine health maintenance; Pain; Psoriatic arthritis (HCC) Social History Tobacco Use Types Packs/Day [...] Sign Reading Time Taken Comments Blood Pressure 114/71 01/29/2022 2:49 PM CDT Pulse 102 01/29/2022 2:49 PM CDT Temperature - - Respiratory Rate - - Oxygen Saturation 96% 01/29/2022 2:49 PM CDT Inhaled Oxygen Concentration - - Weight 112.3 kg (247 lb 9.6 oz) 01/29/2022 2:49 PM CDT Height 172.7 cm (5' 8 ) 01/29/2022 2:49 PM CDT Body Mass Index 37.65 01/29/2022 2:49 PM CDT documented in this encounter Patient Instructions * Patient Instructions* Richard Chacon III, MD - 01/29/2022 2:50 PM CDT Images from the original note were not included. [facility] Internal Medicine is a Patient Centered Medical Home (PCMH) recognized practice. PCMH is a model of care that puts patients at the forefront of care. PCMH centers build better relationships between patients and their clinical care teams. Practices that earn this recognition have made a commitment to continuous quality improvement and a patient-centered approach to care. [facility] Medicine is committed to providing you with the best care possible. Shared decision making is a cunningham component of patient-centered health care. It is a process in whichclinicians and patients work together to make decisions based on clinical evidence that balances risk and expected outcomes with patient preferences and values. How to Contact Us Between Office Visits For scheduling routine appointments, requesting refills or leaving a message for your doctor, the office phone is [phone]. You will be given options to get to the assistance you need. We have both in person and telehealth (telephone and video) appointments available. Phone lines are open from 8:00 am to 4:30 pm Saturday through Saturday. If you become ill and need to be seen before your next visit, we will generally be able to see you that day, although you may see someone other than your own primary care provider. Please call us at [phone], option 1, then option 1 in the morning you would like to be seen. Our fax number is [phone]. Instructions for reaching the practice after office hours For urgent concerns that cannot wait until phone lines are open on the next business day, please call [phone] to speak to the covering General Internal Medicine provider. Identify yourself as a patient in our practice and give the locomotive crane operator your doctor's name. The locomotive crane operator will contact the physician director of search engine optimization. You can generally expect a return call within 30 minutes. Prescription Refills Contact your pharmacy to request all refills. You may also send a [employer] message for refills. Please allow a minimum of 48-72 hours for your prescription to be completed. Your pharmacy will notify you when your prescription is ready to be picked up. SCHEDULE YOUR OWN APPOINTMENT AT [facility] We are excited to announce that some [facility] appointments can now be scheduled online. If you are not able to access the type of appointment that you need using this service, our [facility] Scheduling department will be happy to continue to serve you. Use one of these options to schedule your next appointment today: ??? Access self-scheduling options by visiting the [facility] Online Scheduling Webpage. ??? Make an appointment by calling [facility] Central [phone] Visit our website at [email or web address] for information about our practice and an interactive health encyclopedia. Medicare Annual Wellness Visit Checklist Patient Care Team: Richard Chacon III, MD as PCP - General (Internal Medicine) Christa Velez APRN-CNP as Psychiatrist (Nurse Practitioner) Morgan Randhawa MD as Resident - PCP (Internal Medicine) The following list shows your recommended preventative service schedule and due dates. Health Maintenance Topic Date Due ??? HIV SCREENING Never done ??? COVID-19 VACCINE (3 - Booster for Pfizer series) 03/15/2021 ??? MEDICARE AWV - CALENDAR YEAR Never done ??? INFLUENZA VACCINE (1) 02/22/2022 ??? DTAP/TDAP/TD VACCINES (7 - Td or Tdap) 04/03/2031 ??? HEPATITIS B VACCINE Completed ??? HEPATITIS C SCREENING Completed ??? DEPRESSION SCREENING Completed ??? HPV VACCINE Completed ??? MENINGOCOCCAL VACCINE Completed ??? PNEUMOCOCCAL VACCINE Aged Out ??? HIB VACCINE Aged Out Topics that are Completed mean that they will not need to be done again. Topics that are Aged Out are things that have not been done but no longer are applicable to you. Keep up-to-date Healthcare Power of Fish And Wildlife Scientific Aid and Living Will documents with our office. In any emergency or unexpected hospitalization, these documents will then be visible for care providers to honor your wishes. Patient Education Medicare Annual Wellness Visit Checklist Patient Care Team: Richard Chacon III, MD as PCP - General (Internal Medicine) Christa Velez APRN-CNP as Psychiatrist (Nurse Practitioner) Morgan Randhawa MD as Resident - PCP (Internal Medicine) The following list shows your recommended preventative service schedule and due dates. Health Maintenance Topic Date Due ??? HIV SCREENING Never done ??? COVID-19 VACCINE (3 - Booster for Pfizer series) 03/15/2021 ??? MEDICARE AWV - CALENDAR YEAR Never done ??? INFLUENZA VACCINE (1) 02/22/2022 ??? DTAP/TDAP/TD VACCINES (7 - Td or Tdap) 04/03/2031 ??? HEPATITIS B VACCINE Completed ??? HEPATITIS C SCREENING Completed ??? DEPRESSION SCREENING Completed ??? HPV VACCINE Completed ??? MENINGOCOCCAL VACCINE Completed ??? PNEUMOCOCCAL VACCINE Aged Out ??? HIB VACCINE Aged Out Topics that are Completed mean that they will not need to be done again. Topics that are Aged Out are things that have not been done but no longer are applicable to you. ?? Keep up-to-date Healthcare Power of Fish And Wildlife Scientific Aid and Living Will documents with our office. In any emergency or unexpected hospitalization, these documents will then be visible for care providers to honor your wishes. Patient Education documented in this encounter Progress Notes * Richard Chacon III, MD - 01/29/2022 2:59 PM CDT [facility] Est Patient Note CC: Chief Complaint Patient presents with ??? Establish Care History of Present Illness: Manoj Horner is a 26 year old male presenting to GI clinic for follow up visit. #still having joint paint Past Medical History: Reviewed and updated in [...] as stated in HPI Physical Exam: BP 114/71 Pulse 102 Ht 5' 8 (1.727 m) Wt 247 lb 9.6 oz (112.3 kg) SpO2 96% Wt Readings from Last 3 Encounters: 01/29/22 247 lb 9.6 oz (112.3 kg) 01/17/22 245 lb (111.1 kg) 09/06/21 243 lb (110.2 kg) Gen: Cm in NAD HEENT: NCAT, EOMI, no scleral icterus, ear canal clear of cerumen impaction b/l. TM intact Resp: CTAB, no wheezes/rales/rhonchi CV: RRR, no mrg's. Abd: Soft, NT/ND. +BS's Ext: No CCE. Skin: Skin color, texture, turgor normal. No rashes or lesions Neuro: alert/conversational/STUBBS Labs: Personally reviewed. Recent Labs Component Name 04/03/21 1240 HGBA1C 5.3 Imaging/Other diagnostic testing: Personally reviewed. Assessment & Plan: #psoriasis, psoriatic -followed by Derm and Rheum -on MTX, naproxen, cosentyx, calcipotrene topical #obesity, related to lifestyle and also obesogenic meds (olanzapine) -reinforce dietary lifestyle changes -provided [place] ?? #h/o vit D deficiency -continue cholecalciferol ?? #h/o migraine -follows with neuro -on elavil ?? #bpd -follows with psych -olanzapine 10, citalopram 40, bupropion ?? #RHM -check hiv Return to clinic in 1 yr I spent a total of 34 minutes reviewing notes, laboratory, and imaging data; devising a care plan; coordinating patient care; and/or advising the patient/family as to their diagnoses and care plan. 01/29/2022 Shirin CHACON III, MD Medicare Annual Wellness Visit Assessment and Plan: #pain, d/t psoriatic arthritis, being treated per derm and rheum #insomnia -rx melatonin #hearing trouble -audiology referral Medicare Health Risk Assessment reviewed and documented in note. Medicare checklist provided with Preventative services. Care Team and screening schedule. Subjective: The patient is 26 year old male who presents for Medicare Annual Wellness Visit. I have reviewed the patient's medical history in detail and updated the computerized patient record. HRA Questionnaire RISKS: Patient identified problems with: Fatigue. Problems sleeping ACTIVITIES: Patient requires assistance with: Discussed difficulties with ADLs. ADL comments: Pt notes trouble with showering (needs reminders from Mom) HEARING AND DENTAL: Hearing comments: Has had problems hearing since younger. Recurrent ear infections when young Order audiology referral FUNCTION: Patient has problems with pain/aches/soreness or discomfort: Getting psoriatic treatment. Continue. Advance Directive Information Goals of care discussion Not relevant to this pt Screening Information PHQ-9: 4 (01/17/2022) Mini Co (04/03/2021) Care Team Dr. Chacon PCP Dr. Naqvi Credit Rating Inspector Dr. Peck Pile Driving Technician Dr. Christa Rankin Psychiatrist Objective: BP 114/71 Pulse 102 Ht 5' 8 (1.727 m) Wt 247 lb 9.6 oz (112.3 kg) SpO2 96% BMI 37.65 kg/m?? No exam data present Physical exam as per other note documented in this encounter Plan of Treatment Upcoming Encounters Date Type Department Care Team (Late st Contact Info) Description 10/21/2024 1:30 PM CDT Office Visit [facility] Rhe[facility]ology [address] [place] [phone] Paulino Youngblood MD [address] [place] [address] [place] [phone] 11/30/2024 3:00 PM CDT Office Visit [facility] - ENT [address] [place] [phone] Froilan Monae MD [address] [place] [address] [place] [address] 02/15/2025 10:00 AM CDT Office Visit [facility] - Internal Med [address] [place] [phone] Richard Chacon III, MD [address] [place] [address] [address] [phone] Scheduled Orders Name Type Priority Associated Diagnoses Orde r Schedule HIV-1 HIV-2 ANTIBODY + HIV P24 AG PANEL Lab Routine Routine general medical examination at health care facility Ordered: 01/29/2022 Scheduled Referrals Name Type Priority Associated Diagnoses Order Schedule Ref to Audiology - [facility] Outpatient Referral Routine Hearing trouble, bilateral 1 Occurrences starting 01/29/2022 until 01/29/2023 documented as of this encounter Visit Diagnoses Diagnosis Class 2 obesity with body mass index (BMI) of 37.0 to 37.9 in adult, unspecified obesity type, unspecified whether serious comorbidity present- Primary Routine general medical examination at health care facility Routine general medical examination at a health care facility Insomnia, unspecified type Hearing trouble, bilateral Routine health maintenance Routine general medical examination at a health care facility Pain Generalized pain Psoriatic arthritis (HCC) Psoriatic arthropathy documented in this encounter Care Teams Binding Dyer Relationship Specialty Start Date End Date Richard Chacon III, MD [address] [place] [address] 2[place] [phone] PCP - General Internal Medicine 01/29/22 Christa Velez APRN-CARDIOLOGY NURSE PRACTITIONER [address] [facility] [place] [address] Psychiatrist Nurse Practitioner 08/07/21 Morgan Randhawa MD [facility] [place] [address] Resident - PCP Internal Medicine 01/29/22 documented as of this encounter
--- OUTSIDE RECORDS SUMMARY | 2024-07-15 18:38 | XMS_ITS | Encounter Summary ---
Author Organization [facility] Health Address [address] [place] [address] Care Team Providers Care Certified Ophthalmic Medical Technician Name Role Phone Unavailable Primary Care Provider Unavailabl e Encounter Details Date Type Department Care Team (Late Contact Info) Description 07/28/2021 Orders Only [facility] [address] [place] [address] Kirk Sue MD [address] [place] [address] High risk medications (not anticoagulants) long-term use [...] COVID-19? No / Unsure 08/02/2021 9:31 AM MEAT STOCK CLERK documented as of this encounter Plan of Treatment Upcoming Encounters Date Type Department Care Team (Late Contact Info) Description 10/21/2024 1:30 PM CDT Office Visit [facility]ology [address] [facility], [place] [phone] Paulino Youngblood MD [address] [place] [address] [place] [address] 11/30/2024 3:00 PM CDT Office Visit [facility] - ENT [address] [place] [address], [place] [phone] Froilan Monae MD [address] [place] [address] 2L [place] [address] 02/15/2025 10:00 AM CDT Office Visit [facility] - Internal Med [address] [place] [phone] Richard Chacon III, MD [address] [place] [address] [address] [place] [phone] documented as of this encounter Procedures Procedure Name Priority Date/Time Associated Diagnosis Comments CBC W AUTO DIFFERENTIAL Routine 07/31/2021 11:22 AM MEAT STOCK CLERK High risk medications (not anticoagulants) long-term use COMPREHENSIVE METABOLIC PANEL Routine 07/31/2021 11:22 AM MEAT STOCK CLERK High risk medications (not anticoagulants) long-term use documented in this encounter Results * COMPREHENSIVE METABOLIC PANEL (07/31/2021 11:22 AM MEAT STOCK CLERK) Pathologist [facility] Glucose 129 65 - 139 mg/dL [facility] Comment: ? Non-fasting reference interval BUN 14 7 - 25 mg/dL [facility] Creatinine 0.89 0.60 - 1.35 mg/dL [facility] eGFR by MDRD 120 > OR = 60 mL/min/1. 73m2 [facility] eGFR by MDRD 139 > OR = 60 mL/min/1. 73m2 [facility] BUN/Creatinine Ratio NOT APPLICABLE 6 - (calc) [facility] Sodium 139 135 - 146 mmol/L [facility] Potassium 4.0 3.5 - 5.3 mmol/L [facility] Chloride 107 98 - 110 mmol/L [facility] CO2 25 20 - 32 mmol/L [facility] Calcium 9.3 8.6 - 10.3 mg/dL [facility] Protein Total 6.5 6.1 - 8.1 g/dL [facility] Albumin 4.4 3.6 - 5.1 g/dL [facility] Globulin Total 2.1 1.9 - 3.7 g/dL (calc) [facility] Albumin/Globuli n Ratio 2.1 1.0 - 2.5 (calc) [facility] Bilirubin Total 0.3 0.2 - 1.2 mg/dL [facility] Alkaline Phosphatase 122 36 - 130 U/L [facility] AST 14 10 - 40 U/L [facility] ALT 40 9 - 46 U/L [facility] Comment: Test Performed at: [facility] [address] [place], [place] ??[phone] SIRIA AGUILAR DO,MPH Blood BLOOD SPECIMEN / Unknown 07/31/2021 11:22 AM MEAT STOCK CLERK 07/31/2021 11:23 AM MEAT STOCK CLERK Estee Peck MD LAB [facility] Organization Address City/State/ZIP Co de Phone Number [facility] [address] [place] [address] * (ABNORMAL) CBC WITH DIFFERENTIAL (07/31/2021 11:22 AM MEAT STOCK CLERK) White Blood Cell Count 6.1 3.8 - 10.8 Thousand/u L [facility] RBC 4.56 4.20 - 5.80 Million/uL [facility] Hemoglobin 13.4 13.2 - 17.1 g/dL [facility] Hematocrit 40.2 38.5 - 50.0 % [facility] MCV 88.2 80.0 - 100.0 fL [facility] MCH 29.4 27.0 - 33.0 pg [facility] MCHC 33.3 32.0 - 36.0 g/dL [facility] RDW 14.1 11.0 - 15.0 % [facility] Platelet Count 214 140 - 400 Thousand/u L [facility] MPV 10.2 7.5 - 12.5 fL [facility] Neutrophil Absolute 4203 1500 - 7800 cells/uL [facility] Lymphocytes Absolute 1610 850 - 3900 cells/uL [facility] Absolute Monocytes 183(L) 200 - 950 cells/uL [facility] Eosinophils Absolute 73 15 - 500 cells/uL [facility] Basophils Absolute 31 0 - 200 cells/uL [facility] Granulocytes % 68.9 % [facility] Lymphocytes % 26.4 % [facility] Monocytes % 3.0 % [facility] Eosinophils % 1.2 % [facility] Basophils % 0.5 % [facility] Comment: REPORT COMMENT: FASTING:NO Test Performed at: [facility] [address] [place], [place] ??[phone] SIIRA AGUILAR DO,MPH Blood BLOOD SPECIMEN / Unknown 07/31/2021 11:22 AM MEAT STOCK CLERK 07/31/2021 11:23 AM MEAT STOCK CLERK Estee Peck MD LAB - HEMATOLOGY ORD ERABLES [facility] [address] [place] [address] documented in this encounter Visit Diagnoses Diagnosis High risk medications (not anticoagulants) long-term use Encounter for long-term (current) use of other medications documented in this encounter
--- OUTSIDE RECORDS SUMMARY | 2024-07-15 18:38 | XMS_ITS | Encounter Summary ---
Author Organization [facility] Address [address] [place] [address] Care Team Providers Care Hydraulic Governor Assembler Name Role Phone Christa Velez APRN-ENVIRONMENTAL SCIENCE PROFESSOR Unavailable [phone] Reason for Visit * Reason Onset Date Comments MEDICATION REFILL 11/14/2021 Encounter Details Date Type Department Care Team (Late st Contact Info) Description 11/14/2021 Refill [facility], [place] [address] Vivian Tello MD No info available MEDICATION [...] encounter Miscellaneous Notes * Telephone Encounter - Uma Garza RN - 11/14/2021 2:43 PM CDT Most recent Naproxen refill sent to incorrect pharmacy. Will pend. Refill Request Manoj Horner UVALDO: 09/06/21 NOV scheduled: 12/06/2021 Allergies: Allergies Allergen Reactions ??? Food Headache Spaghetti sauce and mozzarella cheese Pended Medication Order: Requested Prescriptions Pending Prescriptions Disp Refills ??? naproxen (NAPROSYN) 500 MG tablet 120 tablet 1 Sig: Take 1 (one) tablet by mouth 2 times daily documented in this encounter Plan of Treatment Upcoming Encounters Date Type Department Care Team (Late st Contact Info) Description 10/21/2024 1:30 PM CDT Office Visit [facility] - Rheumatology [address] [place] [phone] Paulino Youngblood MD [address] [place] [address] DIV [place] [phone] 11/30/2024 3:00 PM CDT Office Visit [facility] - ENT [address] [place] [phone] Froilan Monae MD [address] [place] [address] DEPT [place] [address] 02/15/2025 10:00 AM CDT Office Visit [facility] - Internal Med [address] [place] [phone] Richard Chacon III, MD [address] [place] [address] 2L [place] [phone] documented as of this encounter Visit Diagnoses Diagnosis Arthralgia, unspecified joint documented in this encounter Care Teams Hydraulic Governor Assembler Relationship Specialty Start Date End Date Christa Velez APRN-ENVIRONMENTAL SCIENCE PROFESSOR [address] [place] [address] Psychiatrist Nurse Practitioner 08/07/21 documented as of this encounter
--- OUTSIDE RECORDS SUMMARY | 2024-07-15 18:38 | XMS_ITS | Encounter Summary ---
Author Organization [facility] Address [address] [address] [place] [address] Care Team Providers Care Patient Transport Orderly Name Role Phone Christa Velez APRN-SET UP OPERATOR TOOL Unavailable [phone] Encounter Details Date Type Department Care Team (Late Contact Info) Description 08/18/2021 Orders Only [facility] [address] [place] [address] Kirk Sue MD [address] [place], [place] [phone] High risk medications (not anticoagulants) long-term use [...] COVID-19? No / Unsure 08/02/2021 9:31 AM RATE EXAMINER documented as of this encounter Plan of Treatment Upcoming Encounters Date Type Department Care Team (Late Contact Info) Description 10/21/2024 1:30 PM CDT Office Visit [facility] Rhe[facility]ology [address] [place] [phone] Paulino Youngblood MD [address] [place] [address] [place] [phone] 11/30/2024 3:00 PM CDT Office Visit [facility] [address] [place] [phone] Froilan Monae MD [address] [place] [address] DE[place] [address] 02/15/2025 10:00 AM CDT Office Visit [facility] Internal Med [address] [place] [phone] Richard Chacon III, MD [address] [place] [address] [address] [place] [phone] documented as of this encounter Visit Diagnoses Diagnosis High risk medications (not anticoagulants) long-term use Encounter for long-term (current) use of other medications documented in this encounter Care Teams Patient Transport Orderly Relationship Specialty Start Date End Date Christa Velez APRN-JESSICA [address] [place] [phone] Psychiatrist Nurse Practitioner 08/07/21 documented as of this encounter
--- OUTSIDE RECORDS SUMMARY | 2024-07-15 18:38 | XMS_ITS | Encounter Summary ---
Author Organization [facility] Address [address] [facility] [place] [address] Care Team Providers Care Manager Perioperative Name Role Phone AyakacharlotteChrista HARVEY-LOADING DOCK HELPER Unavailable [phone] Oswaldo BOSCH MD, Francis G Primary Care Provider [phone] Morgan Randhawa MD Unavailable Pineda Randhawa MD Unavailable Will Naqvi MD Unavailable Pineda Randhawa MD Unavailable Estee Peck MD Unavailable Reason for Visit * Reason Onset Date Comments Medicare Subsequent Annual Wellness Visit Imm Inj 02/04/2023 Encounter Details Date Type Department Care Team (Latest Contact Info) Description 02/04/2023 11:00 AM CDT Office Visit [facility] - Internal Med [address] [place] [address], [place] [address] Richard Chacon III, MD [address] [place] [phone] Routine general medical examination at health care facility (Primary Dx); Need for prophylactic vaccination against Streptococcus pneumoniae (pneumococcus); Class 2 obesity with body mass index (BMI) of 37.0 to 37.9 in adult, unspecified obesity type, unspecified whether serious comorbidity present; Unsteady gait Social History Tobacco Use Types Packs/Day Years [...] Sign Reading Time Taken Comments Blood Pressure 121/84 02/04/2023 11:19 AM CDT Pulse 106 02/04/2023 11:19 AM CDT Temperature 36.4 ??C (97.6 ??F) 02/04/2023 11:19 AM C DT Respiratory Rate - - Oxygen Saturation - - Inhaled Oxygen Concentration - - Weight 112.9 kg (249 lb) 02/04/2023 11:19 AM CDT Height 172.7 cm (5' 8 ) 02/04/2023 11:19 AM CDT Body Mass Index 37.86 02/04/2023 11:19 AM CDT documented in this encounter Patient Instructions * Patient Instructions* Richard Chacon III, MD - 02/04/2023 11:20 AM CDT [facility] is a Patient Centered Medical Home (PCMH) recognized practice. PCM is a model of care that puts patients at the forefront of care. PCM centers build better relationships between patients and their clinical care teams. Practices that earn this recognition have made a commitment to continuous quality improvement and a patient-centered approach to care. [facility] is committed to providing [...] for your doctor, the office phone is [phone]. You will be given options to get [...] primary care provider. Please call us at [phone], option 1, then option 1 in the morning you would like to be seen. Our fax number is [phone]. Instructions for reaching the practice after office hours For urgent concerns that cannot wait until phone lines are open on the next business day, please call [phone] to speak to the covering General Internal Medicine provider. Identify yourself as a patient in our practice and give the operator bearer systems your doctor's name. The operator bearer systems will contact the physician informatics consultant. You can generally expect a return call within 30 minutes. Prescription Refills Contact your pharmacy to request all refills. You may also send a EmergentDetection message for refills. Please allow a minimum of 48-72 hours for your prescription to be completed. Your pharmacy will notify you when your prescription is ready to be picked up. SCHEDULE YOUR OWN APPOINTMENT AT [facility] We are excited to announce that some [facility] appointments can now be scheduled online. If you are not able to access the type of appointment that you need using this service, our [facility] Scheduling department will be happy to continue to serve you. Use one of these options to schedule your next appointment today: Access self-scheduling options by visiting the [facility] Online Scheduling Webpage. Make an appointment by calling [facility] Central [phone] Visit our website at [email or web address] for information about our practice and an interactive health encyclopedia. Medicare Annual Wellness Visit Checklist Patient Care Team: Richard Chacon III, MD as PCP - General (Internal Medicine) Christa Velez APRN-CNP as Psychiatrist (Nurse Practitioner) Morgan Randhawa MD as Resident - PCP (Internal Medicine) Pineda Randhawa MD as Resident (Rheumatology) Will Naqvi MD as Clinical Nursing Manager (Rheumatology) Pineda Randhawa MD as Resident (Rheumatology) Estee Peck MD (Dermatology) The following list shows your recommended preventative service schedule and due dates. Health Maintenance Topic Date Due PNEUMOCOCCAL VACCINE (1 - PCV) Never done HIV SCREENING Never done COVID-19 VACCINE (3 - Pfizer risk series) 11/10/2020 INFLUENZA VACCINE (1) 02/22/2023 DTAP/TDAP/TD VACCINES (7 - Td or Tdap) 04/03/2031 HEPATITIS B VACCINE Completed HEPATITIS C SCREENING Completed MEDICARE AWV - CALENDAR YEAR Completed DEPRESSION SCREENING Completed HPV VACCINE Completed MENINGOCOCCAL VACCINE Completed HIB VACCINE Aged Out Topics that are Completed mean that they will not need to be done again. Topics that are Aged Out are things that have not been done but no longer are applicable to you. Keep up-to-date Healthcare Power of Metal Drill Press Operator and Living Will documents with our office. In any emergency or unexpected hospitalization, these documents will then be visible for care providers to honor your wishes. Patient Education documented in this encounter Progress Notes * Richard Chacon III, MD - 02/04/2023 12:00 PM CDT Medicare Annual Wellness Visit Assessment and Plan: Medicare Health Risk Assessment reviewed and documented in note. Medicare checklist provided with Preventative services. Care Team and screening schedule. Subjective: The patient is 27 year old male who presents for Medicare Annual Wellness Visit. I have reviewed the patient's medical history in detail and updated the computerized patient record. HRA Questionnaire RISKS: Patient identified problems with: Fatigue. Fatigue occurring when cloudy or with joint pain Continue psoriasis tx and mood tx SAFETY: Patient has concerns about falling: Counseled on fall prevention and CDC fall prevention guidance provided in AVS. Patient is unsteady while walking/standing: Occurs rarely if having bad joint pain monitor ACTIVITIES: Patient requires assistance with: Discussed difficulties with IADLs. IADL comments: Lives at home with parents Advance Directive Information Goals of care discussion Not relevant for this particular patient Screening Information PHQ-2: 0 (12/26/2022) Mini Co (02/04/2023) Objective: BP 121/84 (BP SITE: LEFT ARM, BP POSITION: SITTING, BP CUFF SIZE: 11L) Pulse 106 Temp 97.6 ??F (36.4 ??C) (Temporal) Ht 1.727 m (5' 8 ) Wt 112.9 kg (249 lb) BMI 37.86 kg/m?? No results found. Physical exam as per other note * Richard Chacon III, MD - 02/04/2023 11:41 AM CDT VIS was given prior to administration. Site aseptically cleansed and Immunization(s) given per protocol. * Nilsa Larsno - 02/04/2023 11:32 AM CDT [facility] Internal [facility] Medical Student Note CC: Routine Health Maintenance History of Present Illness: Manoj Horner is a 27 year old male with a PMH of psoriatic arthritis, obesity, bipolar disorder, migraine, vitamin D deficiency, and hearing loss presenting to GI clinic for routine health maintenance. Concerns discussed today: None #Obesity Weight loss: 6 lbs weight loss since last visit, one month ago, unintentional #Psoriatic arthritis Joint pain in hands, hips, back; getting better with treatment managed by Rheum and Derm #BPD No recent mood episodes Review of Systems: Review of Systems Constitutional: Positive for malaise/fatigue. Negative for fever and weight loss. HENT: Positive for hearing loss. Eyes: Positive for blurred vision. Negative for pain, discharge and redness. Respiratory: Negative for cough and wheezing. Cardiovascular: Negative for chest pain and palpitations. Gastrointestinal: Negative for heartburn, nausea and vomiting. Genitourinary: Negative for frequency and urgency. Musculoskeletal: Positive for joint pain. Skin: Negative for rash. Endo/Heme/Allergies: Negative for polydipsia. Psychiatric/Behavioral: Negative for depression. The patient is not nervous/anxious. Past Medical History: Reviewed and updated in Epic history tab Past Surgical History: Reviewed and updated in Epic history tab Family History: Reviewed and updated in Epic history tab Social History: Reviewed and updated in Epic history tab Medications: Reviewed and updated in Epic Medications tab Current Outpatient Medications Medication Sig Dispense Refill [...] No current facility-administered medications for this visit. Allergies: Reviewed and updated in Epic Allergies tab Physical Exam: BP 121/84 (BP SITE: LEFT ARM, BP POSITION: SITTING, BP CUFF SIZE: 11L) Pulse 106 Temp 97.6 ??F (36.4 ??C) (Temporal) Ht 1.727 m (5' 8 ) Wt 112.9 kg (249 lb) General: NAD HEENT: NCAT, EOMI, no scleral icterus Cardiovascular: RRR, no mrgs Lungs: CTAB, no wheezes/rhonic/rales Abdomen: NT, BS+ Skin: psoriatic plaques visible on right lower extremity Neuro: alert, interactive, STUBBS Psych: Denies depression, denies anxiety Labs: Personally reviewed. Pertinent for: No notable findings Imaging/Other diagnostic testing: Personally reviewed. Pertinent for: XR R and L knee/foot No evidence of bony erosions or significant degenerative changes. XR [place] L shoulder/wrist/hand IMPRESSION:?? No evidence of bony erosions or degenerative changes. XR sacroiliac joints There is no erosion, sclerosis, widening, narrowing, or ankylosis of either sacroiliac joint. Thereis no fracture. The hip joint spaces are normal. Assessment & Plan: #psoriasis, psoriatic arthritis -followed by Derm and Rheum -Stopped MTX -naproxen -cosentyx -clobetasol topical ?? #obesity, related to lifestyle and also obesogenic meds (olanzapine) - Recent unintentional weight loss 6 lbs, no polydipsia, polyuria - HgA1c 5.3 (Mar 2021) - Re-order HgA1c - lipid profile - reinforce dietary lifestyle changes - provided [employer] ?? #h/o vit D deficiency -continue cholecalciferol -last vit D level 52 (2020) -order new vitamin D #h/o migraine -follows with neuro -on amitryptyline elavil ?? #BPD -follows with psych -olanzapine 10 -citalopram??40 -bupropion 200 BID #Hearing loss -Recently got hearing aids Preventative Care: Advanced care planning: none documented Immunizations - COVID19: last booster Jun 2021, encouraged to go to pharmacy - Tdap: UTD - Pneumococcal: PCV 20 today - Zoster: N/A - HPV: UTD Colorectal cancer screening: N/A Lung cancer screening: N/A HIV, Hep C: re-ordered HIV test today Patient discussed with attending physician, Dr. James Chacon, who agrees with my assessment and plan. No follow-ups on file. Nilsa Larson M4, [facility] 02/04/2023 Coding Rationale New or est? Established Patient Highest problem complexity: 1 stable chronic illness Data review: Ordering of test(s): 3 or more unique test(s) ordered Suggested code: 56367 Associated attestation - Richard Chacon III, MD - 02/04/2023 2:02 PM CDT I have verified the documentation of the medical student including all history, exam, and medical decision-making details. I have personally performed a physical exam and have personally reviewed the data to support my medical decision-making as outlined in the medical student's note, and I arrive independently at the same conclusion. In addition I note: #psoriasis, psoriatic -followed by Derm and Rheum - naproxen, cosentyx, calcipotrene topical -recently stopped MTX per rheum #obesity, related to lifestyle and also obesogenic meds (olanzapine) -reinforce dietary lifestyle changes -provided [employer] website -check lipid profile and hbA1c -discuss in more detail next visit #h/o vit D deficiency -continue cholecalciferol #h/o migraine -follows with neuro -on elavil #bpd -follows with psych -olanzapine 10, citalopram 40, bupropion #h/o hearing loss -recently got hearing aids #RHM -check hiv -pt will go to pharmacy to get covid vaccine -order pcv 20 F JAMES CHACON III, MD Date of Service: 02/04/2023 documented in this encounter Plan of Treatment Upcoming Encounters Date Type Department Care Team (Late st Contact Info) Description 10/21/2024 1:30 PM CDT Office Visit [facility] - Rheumatology [address] [place] [phone] Paulino Youngblood MD [address] [place] [address] [place] [phone] 11/30/2024 3:00 PM CDT Office Visit [facility] - ENT [address] [place] [phone] Froilan Monae MD [address] [place] [address] [address] [place] [address] 02/15/2025 10:00 AM CDT [facility] Internal Med [address] [place] [phone] Richard Chacon III, MD [address] [place] [address] [address] [phone] documented as of this encounter Results * HIV-1 HIV-2 ANTIBODY + HIV P24 AG PANEL (07/24/2023 2:25 PM PRINT GRAPHIC DESIGNER) HIV Antigen/Antibod y 1 & 2 Non-reacti ve Non-react artur 07/24/2023 3:43 PM [facility] Comment:No Laboratory eviden ce of HIV infection. Blood BLOOD SPECIMEN / Unknown Lab Venipuncture / Unknown 07/24/2023 2:25 PM PRINT GRAPHIC DESIGNER 07/24/2023 2:56 PM PRINT GRAPHIC DESIGNER Richard Chacon III, MD LAB - CHEMISTRY O RDERABLES [facility] [address] [place] [address], [facility] [phone] * (ABNORMAL) LIPID PROFILE (07/24/2023 2:25 PM PRINT GRAPHIC DESIGNER) Pathologist [facility] Cholesterol Total 151 <200 mg/dL 07/24/2023 3:25 PM [facility] HDL 27(L) >40 mg/dL 07/24/2023 3:25 PM [facility] Comment: ATP III Classification of HDL Cholesterol: ? <40 mg/dL: ??Considered a major risk factor. ? >60 mg/dL: ??Considered a negative risk factor. ? LDL Calculated 99 <100 mg/dL 07/24/2023 3:25 PM [facility] Comment: ATP III Classification of LDL Cholesterol: ?<100 mg/dL: ??Optimal ? 100 - 129 mg/dL: ??Near Optimal/Above Optimal ? 130 - 159 mg/dL: ??Borderline High ? 160 - 189 mg/dL: ??High ?>190 mg/dL: ??Very High ? Triglycerides 124 <150 mg/dL 07/24/2023 3:25 PM [facility] Comment: ATP III Classification of Triglycerides: ?<150 mg/dL: ??Normal ? 150 - 199 mg/dL: ??Borderline High ? 200 - 400 mg/dL: ??High ?>500 mg/dL: ??Very High Blood BLOOD SPECIMEN / Unknown Lab Venipuncture / Unknown 07/24/2023 2:25 PM PRINT GRAPHIC DESIGNER 07/24/2023 2:57 PM PRINT GRAPHIC DESIGNER Richard Chacon III, MD LAB - CHEMISTRY O JOE Performing Organization Address [facility] Co de Phone Number [facility] [address] [place] [address], [place] [phone] * (ABNORMAL) HEMOGLOBIN A1C (07/24/2023 2:25 PM PRINT GRAPHIC DESIGNER) Hemoglobin A1c 5.7(H) <=5.6 % 07/25/2023 11:16 AM [facility] Estimated Average Glucose 117 mg/dL 07/25/2023 11:16 AM [facility] Comment: HbA1c Interpretation: Normal : < 5.7% Pre-diabetes: 5.7-6.4% Diabetes: Equal to or greater than 6.5% Test results diagnostic of diabetes should be repeated for confirmation. Treatment target values recommended by ADA and other clinical organizations should be used to evaluate metabolic control in patients. Reference: [place] [employer], Standards of Care in Diabetes -2020 In patients 70 years and older consider HbA1c target range of 7.0-7.5% (Reference: Alberto Everett et al. JAMDA. 2012) The Sebia assay for the measurement of HbA1c is a National Glycohemoglobin Standardization Program (NGSP) certified method. Blood BLOOD SPECIMEN / Unknown Lab Venipuncture / Unknown 07/24/2023 2:25 PM PRINT GRAPHIC DESIGNER 07/24/2023 2:58 PM PRINT GRAPHIC DESIGNER Richard Chacon III, MD LAB - CHEMISTRY O JOE Performing Organization Address [facility]/ZIP Co de Phone Number [facility] [address] [place] [address], [facility] [phone] documented in this encounter Visit Diagnoses Diagnosis Routine general medical examination at health care facility- Primary Routine general medical examination at a health care facility Need for prophylactic vaccination against Streptococcus pneumoniae (pneumococcus) Need for prophylactic vaccination against streptococcus pneumoniae (pneumococcus) Class 2 obesity with body mass index (BMI) of 37.0 to 37.9 in adult, unspecified obesity type, unspecified whether serious comorbidity present Unsteady gait Abnormality of gait documented in this encounter Care Teams Manager Perioperative Relationship Specialty Start Date End Date Richard Chacon III, MD [address] [place] [phone] PCP - General Internal Medicine 01/29/22 Christa Velez APRN-LOADING DOCK HELPER [address] [place] [phone] Psychiatrist Nurse Practitioner 08/07/21 Morgan Randhawa MD [address] [place] [phone] Resident - PCP Internal Medicine 01/29/22 Pineda Randhawa MD [address] [place] [phone] Resident Rheumatology 12/24/22 Will Naqvi MD [address] [place] [phone] Clinical Nursing Manager Rheumatology 12/24/22 Pineda Randhawa MD [address] [place] [address] Resident Rheumatology 02/04/23 Estee Peck MD [address] [place] [address] Dermatology 02/04/23 documented as of this encounter
--- OUTSIDE RECORDS SUMMARY | 2024-07-15 18:38 | XMS_ITS | Encounter Summary ---
Author Organization [facility] Address [address] [place] [address] Care Team Providers Care Sponge Packer Name Role Phone Christa Velez APRN-[employer] Unavailable [phone] Encounter Details Date Type Department Care Team (Late Contact Info) Description 08/04/2021 Orders Only [facility] [address] [place] [address] Kirk Sue MD [address] [place], [place] [phone] High risk medications (not anticoagulants) long-term use [...] COVID-19? No / Unsure 08/02/2021 9:31 AM BOATWRIGHT documented as of this encounter Plan of Treatment Upcoming Encounters Date Type Department Care Team (Late Contact Info) Description 10/21/2024 1:30 PM CDT Office Visit [facility] - Rheumatology [address] [place] [phone] Paulino Youngblood MD [address] [place] [address] [place] [phone] 11/30/2024 3:00 PM CDT Office Visit [facility] - ENT [address] [place] [phone] Froilan Monae MD [address] [place] [address] [place] [address] 02/15/2025 10:00 AM CDT Office Visit [facility] - Internal Med [address] [place] [phone] Richard Chacon III, MD [address] [place] [address] [address] [place] [phone] documented as of this encounter Visit Diagnoses Diagnosis High risk medications (not anticoagulants) long-term use Encounter for long-term (current) use of other medications documented in this encounter Care Teams Sponge Packer Relationship Specialty Start Date End Date Christa Velez APRN-JESSICA [address] [place] [address] Psychiatrist Nurse Practitioner 08/07/21 documented as of this encounter
--- OUTSIDE RECORDS SUMMARY | 2024-07-15 18:38 | XMS_ITS | Encounter Summary ---
Author Organization [facility] Health Address [address] [place] [address] Care Team Providers Care Network Control Operator Name Role Phone Christa Velez APRN-CLOTH GRADER SUPERVISOR Unavailable [phone] Oswaldo BOSCH MD, Francis G Primary Care Provider [phone] Morgan Randhawa MD Unavailable Encounter Details Date Type Department Care Team (Latest Contact Info) Description 06/06/2022 1:55 PM PUBLIC TRANSIT TROLLEY DRIVER - 06/06/2022 11:59 PM [facility] Hospital Encounter [facility] [address] [place] [phone] Discharge Disposition: Home or Self Care Social [...] 30 days supply 120 mL 11 04/17/2021 olanzapine (ZYPREXA) 10 MG tablet Take 1 (one) tablet by mouth once daily vitamin D3 (Cholecalciferol) 25 MCG (1000 UNITS) tablet Take 1 (one) tablet by mouth once daily 05/06/2022 amitriptyline (Elavil) 25 MG tablet Take 1 (one) tablet by mouth at bedtime 12/18/2023 naproxen (Naprosyn) 500 MG tablet Take 1 (one) tablet by mouth 2 times daily 06/05/2022 11/01/2022 secukinumab (Cosentyx) 150 MG/ML SOAJ pen Inject 300 (three hundred) mg subcutaneously every 28 days 2 mL 3 04/19/2022 10/01/2022 documented as of this encounter Plan of Treatment Upcoming Encounters Date Type Department Care Team (Late st Contact Info) Description 10/21/2024 1:30 PM CDT Office Visit [facility] - Rheumatology [address] [place] [phone] Paulino Youngblood MD [address] [place] [address] [place] [phone] 11/30/2024 3:00 PM CDT Office Visit [facility] ENT [address] [place] [phone] Froilan Monae MD [address] [place] [address] DEPT [place] [address] 02/15/2025 10:00 AM CDT Office Visit [facility] - Internal Med [address] [place] [address], [place] [phone] Richard Chacon III, MD [address] [place] [address] [address] [place] [phone] documented as of this encounter Procedures Procedure Name Priority Date/Time Associated Diagnosis Comments CBC W AUTO DIFFERENTIAL Routine 06/06/2022 2:21 PM PUBLIC TRANSIT TROLLEY DRIVER Psoriatic arthritis (HCC) Therapeutic drug monitoring COMPREHENSIVE METABOLIC PANEL Routine 06/06/2022 2:21 PM PUBLIC TRANSIT TROLLEY DRIVER Psoriatic arthritis (HCC) Therapeutic drug monitoring documented in this encounter Results * (ABNORMAL) COMPREHENSIVE METABOLIC PANEL (06/06/2022 2:21 PM PUBLIC TRANSIT TROLLEY DRIVER) BUN 14 7 - 26 mg/dL 06/06/2022 3:16 PM [facility] Creatinine 0.83 0.71 - 1.16 mg/dL 06/06/2022 3:[address] [facility] Sodium 139 136 - 145 mmol/L 06/06/2022 3:16 PM [facility] Potassium 4.0 3.5 - 4.5 mmol/L 06/06/2022 3:16 PM [facility] Chloride 109(H) 98 - 107 mmol/L 06/06/2022 3:16 PM [facility] CO2 22 22 - 29 mmol/L 06/06/2022 3:16 PM [facility] Glucose 93 70 - 115 mg/dL 06/06/2022 3:16 PM [facility] Calcium 8.7 8.4 - 10.2 mg/dL 06/06/2022 3:16 PM [facility] Protein Total 6.8 6.0 - 8.3 g/dL 06/06/2022 3:16 PM [facility] Albumin 3.8 3.4 - 5.0 g/dL 06/06/2022 3:16 PM [facility] Bilirubin Total 0.2 0.2 - 1.2 mg/dL 06/06/2022 3:16 PM [facility] Alkaline Phosphatase 112 40 - 150 U/L 06/06/2022 3:16 PM [facility] ALT 43 5 - 55 U/L 06/06/2022 3:16 PM [facility] AST 17 5 - 34 U/L 06/06/2022 3:16 PM [facility] Anion Gap 12 8 - 18 06/06/2022 3:16 PM [facility] BUN/Creatinine Ratio 17 7 - 23 06/06/2022 3:16 PM [facility] Osmolality Calculated 288 270 - 300 mOsm/kg 06/06/2022 3:16 PM [facility] Albumin/Globulin Ratio 1.3 1.1 - 2.3 06/06/2022 3:16 PM [facility] eGFR by CKD-EPI >90 >=90 mL/min/1.7 3 m2 06/06/2022 3:16 PM [facility] Blood BLOOD SPECIMEN / Unknown Lab Venipuncture / Unknown 06/06/2022 2:21 PM PUBLIC TRANSIT TROLLEY DRIVER 06/06/2022 2:51 PM PUBLIC TRANSIT TROLLEY DRIVER Will Naqvi MD LAB - CHEMISTRY ALEENA HERNANDEZ [facility] Organization Address [facility]/State/[facility] Co de Phone Number [facility] [address] [place] [phone], [facility] [phone] * (ABNORMAL) CBC WITH DIFFERENTIAL (06/06/2022 2:21 PM PUBLIC TRANSIT TROLLEY DRIVER) WBC 6.6 3.5 - 10.5 10? 3 /uL 06/06/2022 2:58 PM [facility] RBC 4.74 4.30 - 5.70 10? 6 /uL 06/06/2022 2:58 PM [facility] Hemoglobin 13.4 12.0 - 17.6 g/dL 06/06/2022 2:58 PM [facility] Hematocrit 40.2 35.2 - 51.7 % 06/06/2022 2:58 PM [facility] MCV 84.8 80.7 - 98.3 fL 06/06/2022 2:58 PM [facility] MCH 28.3 26.7 - 34.0 pg 06/06/2022 2:58 PM [facility] MCHC 33.3 30.8 - 35.9 g/dL 06/06/2022 2:58 PM [facility] RDW-SD 39.0 36.0 - 50.0 fL 06/06/2022 2:58 PM [facility] RDW-CV 12.7 11.2 - 14.8 % 06/06/2022 2:58 PM [facility] Platelet Count 183 150 - 400 10? 3 /uL 06/06/2022 2:58 PM [facility] MPV 9.5 9.4 - 12.9 fL 06/06/2022 2:58 PM [facility] nRBC Absolute 0.00 0 10? 3 /uL 06/06/2022 2:58 PM [facility] nRBC Auto 0.0 0 /100 WBC 06/06/2022 2:58 PM [facility] Neutrophils % 64.5 35.0 - 70.0 % 06/06/2022 2:58 PM [facility] Lymphocytes % 26.5 20.0 - 43.0 % 06/06/2022 2:58 PM [facility] Monocytes % 5.6 5.0 - 13.0 % 06/06/2022 2:58 PM [facility] Eosinophils % 1.4 0.0 - 6.0 % 06/06/2022 2:58 PM [facility] Basophil % 0.6 0.0 - 2.0 % 06/06/2022 2:58 PM [facility] Neutrophils Absolute 4.26 1.60 - 7.00 10? 3 /uL 06/06/2022 2:58 PM [facility] Lymphocyte Absolute 1.75 1.10 - 3.90 10? 3 /uL 06/06/2022 2:58 PM [facility] Monocytes Absolute 0.37 0.26 - 1.07 10? 3 /uL 06/06/2022 2:58 PM [facility] Eosinophils Absolute 0.09 0.00 - 0.47 10? 3 /uL 06/06/2022 2:58 PM PUBLIC TRANSIT TROLLEY DRIVER [facility] Basophils Absolute 0.04 0.00 - 0.08 10? 3 /uL 06/06/2022 2:58 PM [facility] Immature Granulocytes % 1.4(H) 0.0 - 1.0 % 06/06/2022 2:58 PM [facility] Immature Granulocytes Absolute 0.09 06/06/2022 2:58 PM [facility] Blood BLOOD SPECIMEN / Unknown Lab Venipuncture / Unknown 06/06/2022 2:21 PM PUBLIC TRANSIT TROLLEY DRIVER 06/06/2022 2:51 PM PUBLIC TRANSIT TROLLEY DRIVER Will Naqvi MD LAB - HEMATOLOGY ORD ERABLES [facility] [address] [place] [address], [facility] [phone] documented in this encounter Visit Diagnoses Diagnosis Psoriatic arthritis (HCC) Psoriatic arthropathy Therapeutic drug monitoring Encounter for therapeutic drug monitoring documented in this encounter Care Teams Network Control Operator Relationship Specialty Start Date End Date Richard Chacon III, MD [address] [phone] PCP - General Internal Medicine 01/29/22 Christa Velez APRN-CLOTH GRADER SUPERVISOR [address] [place] [phone] Psychiatrist Nurse Practitioner 08/07/21 Morgan Randhawa MD [address] [facility] [place] [phone] Resident - PCP Internal Medicine 01/29/22 documented as of this encounter
--- OUTSIDE RECORDS SUMMARY | 2024-07-15 18:38 | XMS_ITS | Encounter Summary ---
Author Organization [facility] Address [address] [place] [address] Care Team Providers Care Night Custodian Name Role Phone Christa Velez APRN-TELEMARKETING SUPERVISOR Unavailable [phone] Encounter Details Date Type Department Care Team (Late Contact Info) Description 10/17/2021 Orders Only [facility] Orth[facility] [address] [place] [phone] Vivian Tello MD No info available Psoriatic arthritis (HCC) Social History Tobacco Use [...] Office Visit [facility] - Rheumatology [address] [place] [phone] Paulino Youngblood MD [address] [place] [address] [place] [phone] 11/30/2024 3:00 PM CDT Office Visit [facility] - ENT [address] [place] [address], [place] [phone] Froilan Monae MD [address] [place] [address] [place] [address] 02/15/2025 10:00 AM CDT Office Visit [facility] - Internal Med [address] [place] [phone] Richard Chacon III, MD [address] [place] [address] [place] [phone] documented as of this encounter Visit Diagnoses Diagnosis Psoriatic arthritis (HCC) Psoriatic arthropathy documented in this encounter Care Teams Night Custodian Relationship Specialty Start Date End Date Christa Velez APRN-TELEMARKETING SUPERVISOR [address] [place] [phone] Psychiatrist Nurse Practitioner 08/07/21 documented as of this encounter
--- OUTSIDE RECORDS SUMMARY | 2024-07-15 18:38 | XMS_ITS | Encounter Summary ---
Author Organization [facility] Health Address [address] [place] [address] Care Team Providers Care Saturation Equipment Operator Name Role Phone Christa Velez APRN-MANAGER ENTRY Unavailable [phone] Oswaldo BOSCH MD, Richard Sanchez Primary Care Provider [phone] Morgan Randhawa MD Unavailable Reason for Visit * Reason Onset Date Comments Medication Issue 04/17/2022 Encounter Details Date Type Department Care Team (Late st Contact Info) Description 04/17/2022 Telephone [facility] [address] [facility], [facility] [place] [address] Pineda Randhawa MD [address] [facility] [address] [place] [phone] Medication Issue Social History Tobacco Use Types Packs/Day Years [...] Telephone Encounter - Uma Garza RN - 04/17/2022 3:09 PM CDT Received fax from [facility] for [place] for starter dose of Cosentyx, it looks like this is continuation of therapy, pt has already had starter? MD Please advise on prescription. documented in this encounter Plan of Treatment Upcoming Encounters Date Type Department Care Team (Late st Contact Info) Description 10/21/2024 1:30 PM CDT [facility] [address] [place] [phone] Paulino Youngblood MD [address] [place] [address] [place] [phone] 11/30/2024 3:00 PM CDT Office Visit [facility] - ENT [address] [place] [phone] Froilan Monae MD [address] [place] [address] [place] [address] 02/15/2025 10:00 AM CDT Office Visit [facility] - Internal Med [address] [place] [phone] Richard Chacon III, MD [address] [place] [address] 2[address] [place] [phone] documented as of this encounter Visit Diagnoses Not on filedocumented in this encounter Care Teams Saturation Equipment Operator Relationship Specialty Start Date End Date Richard Chacon III, MD [address] [place] [address] [address] [place] [phone] PCP - General Internal Medicine 01/29/22 Christa Velez APRN-MANAGER ENTRY [address] [place] [phone] Psychiatrist Nurse Practitioner 08/07/21 Morgan Randhawa MD [facility] [place] [place] [phone] Resident - PCP Internal Medicine 01/29/22 documented as of this encounter
--- OUTSIDE RECORDS SUMMARY | 2024-07-15 18:38 | XMS_ITS | Encounter Summary ---
Author Organization [facility] Address [address] [facility] [place] [address] Care Team Providers Care Vessel Slag Worker Name Role Phone Christa Velez APRN-METAL SLITTER Unavailable [phone] Encounter Details Date Type Department Care Team (Late Contact Info) Description 10/13/2021 Orders Only [facility] [address] [place] [address] Kirk Sue MD [address] [place], [place] [phone] High risk medications (not anticoagulants) long-term use [...] Office Visit [facility] - Rheumatology [address] [place] [address], [place] [phone] Paulino Youngblood MD [address] [place] [address] [place] [phone] 11/30/2024 3:00 PM CDT Office Visit [facility] - ENT [address] [place] [phone] Froilan Monae MD [address] [place] [address] [place] [address] 02/15/2025 10:00 AM CDT Office Visit [facility] - Internal Med [address] [place] [phone] Richard Chacon III, MD [address] [place] [address] [place] [phone] documented as of this encounter Visit Diagnoses Diagnosis High risk medications (not anticoagulants) long-term use Encounter for long-term (current) use of other medications documented in this encounter Care Teams Vessel Slag Worker Relationship Specialty Start Date End Date Christa Velez APRN-JESSICA [address] [place] [address] Psychiatrist Nurse Practitioner 08/07/21 documented as of this encounter
--- OUTSIDE RECORDS SUMMARY | 2024-07-15 18:38 | XMS_ITS | Encounter Summary ---
Author Organization [facility] Address [address] [facility] [place] [address] Care Team Providers Care Furniture Upholsterer Name Role Phone Christa Velez APRN-WINDSURFING INSTRUCTOR Unavailable [phone] Encounter Details Date Type Department Care Team (Late Contact Info) Description 09/01/2021 Orders Only [facility] [address] [place] [address] Kirk Sue MD [address] [place], [place] [phone] High risk medications (not anticoagulants) long-term use [...] COVID-19? No / Unsure 08/02/2021 9:31 AM CLINICAL STUDY MANAGER documented as of this encounter Plan of Treatment Upcoming Encounters Date Type Department Care Team (Late Contact Info) Description 10/21/2024 1:30 PM CDT Office Visit [facility] - Rheumatology [address] [place] [phone] Paulino Youngblood MD [address] [place] [address] [place] [phone] 11/30/2024 3:00 PM CDT Office Visit [facility] [address] [place] [phone] Froilan Monae MD [address] [place] [address] [place] [address] 02/15/2025 10:00 AM CDT Office Visit [facility] - Internal Med [address] [place] [phone] Richard Chacon III, MD [address] [place] [address] [address] [place] [phone] documented as of this encounter Visit Diagnoses Diagnosis High risk medications (not anticoagulants) long-term use Encounter for long-term (current) use of other medications documented in this encounter Care Teams Furniture Upholsterer Relationship Specialty Start Date End Date Christa Velez APRN-JESSICA [address] [place] [address] Psychiatrist Nurse Practitioner 08/07/21 documented as of this encounter
--- OUTSIDE RECORDS SUMMARY | 2024-07-15 18:38 | XMS_ITS | Encounter Summary ---
Author Organization [facility] Address [address] [place] [address] Care Team Providers Care Seam Sewer Name Role Phone Christa Velez APRN-LUMBER RACKER Unavailable [phone] Oswaldo BOSCH MD, Richard Sanchez Primary Care Provider [phone] Morgan Randhawa MD Unavailable Pineda Randhawa MD Unavailable Will Naqvi MD Unavailable [phone] Encounter Details Date Type Department Care Team (Late st Contact Info) Description 12/26/2022 3:00 PM CDT Office Visit [facility] - Rheumatology [address] [place] [address] [place] [phone] Pineda Randhawa MD [address] [place] [address] Rd [address] [place] [address] Psoriatic arthritis (HCC) (Primary Dx); Psoriasis; 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HCC); MCFP current use of non-steroidal anti-inflammatories (NSAID); Screening-pulmonary TB Social History Tobacco Use Types [...] PM CDT documented as of this encounter Last Filed Vital Signs Vital Sign Reading Time Taken Comments Blood Pressure 121/79 12/26/2022 3:05 PM CDT Pulse 91 12/26/2022 3:05 PM CDT Temperature 36.6 ??C (97.8 ??F) 12/26/2022 3:05 PM CD T Respiratory Rate - - Oxygen Saturation 97% 12/26/2022 3:05 PM CDT Inhaled Oxygen Concentration - - Weight 115.7 kg (255 lb) 12/26/2022 3:05 PM CDT Height 172.7 cm (5' 8 ) 12/26/2022 3:05 PM CDT Body Mass Index 38.77 12/26/2022 3:05 PM CDT documented in this encounter Patient Instructions * Patient Instructions* Pineda Randhawa MD - 12/26/2022 3:29 PM CDT You were seen for Psoriatic arthritis. Continue same medications. Fax the lab results to us. Follow up in 6 months, Saturday afternoon. If you need to schedule,change or cancel your Rheumatology appointment -at the [facility] ([facility]) at [address] [place] [address], call [phone] or [phone] (option 1) If you choose to get labs or imaging at an outside facility, it is your (as the patient) responsibility to have these results faxed to us at [phone] If you need a refill, please call your Pharmacy first and have them send us a refill request via Fax at [phone]. If you have been given a referral to a new specialist at [facility] and have not received a call to schedule within 1 week, please call [phone] to schedule your visit. If you have been referred to Physical Therapy, but do not receive a call from them to schedule an appointment within 1 week, please call [phone] to schedule your Physical Therapy appointment. You can also utilize the Physical Therapy website at [email or web address] to make an appointment. If you need to leave a message for Dr. Randhawa you can send her an electronic message via [email or web address] or leave a voicemail at [phone]. Her office FAX number is [phone]. If you have an emergency after hours, you can reach the continuous mining machine operator Fellow by calling the Home Health Assistant at [phone], but please seek appropriate care at Urgent Care or Emergency Room. documented in this encounter Progress Notes * Guillermo Galicia MD - 12/26/2022 3:25 PM CDT Rheumatology Attending Attestation: Date of Service: 12/26/22 I have seen and examined the patient with the fellow and I agree with the findings and plan of careas documented by the fellow. Encounter Diagnoses: 1. Psoriatic arthritis (CMS/HCC) 2. Psoriasis 3. 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 Screening-pulmonary TB Previously supervised by Dr. Naqvi who is out of the office currently. Status: well-controlled Continue: - Cosentyx 300 mg SC q28d (since Sep 2021) - Naproxen 500 mg PO BID (has worsening polyarthritis with skipping doses, risk/benefit favors cont'd use) RV ~6m with Ilia Additional contributions to medical decision making for today's encounter: I reviewed the patient'schart including review of clinical notes, laboratory results, and imaging results. I educated the patient regarding risks and benefits of the management plan, their medical problems, and contingency plans for worsening symptoms. Total time spent reviewing records, conducting interview and physical,counseling, care coordination, placing any orders for investigative studies and/or medications, anddocumentation on the day of the encounter: 30+ minutes. Guillermo Galicia MD, FACP Director, Rheumatology Fellowship Program Department of Internal Medicine [facility] Encounter Orders and Future Appointments: Orders Placed This Encounter ??? QUANTIFERON-TB GOLD PLUS 4-TUBE Future Appointments Date Time Provider Department Center 02/04/2023 11:00 AM Richard Chacon III, MD [id number] [facility] 03/21/2023 2:30 PM Ismael Castro, PhD SLUCAREOTOARNAUD [facility] 03/21/2023 3:00 PM Froilan Monae MD SLUCAREOTOGL [facility] 07/03/2023 1:30 PM Pineda Randhawa MD [id number] [facility] * Pineda Randhawa MD - 12/26/2022 3:01 PM CDT . Rheumatology Clinic Consultation Note Patient: Manoj Horner ( , 1995, 27 year old male) Encounter Date: 12/26/2022 Chief Concern: Follow up for PsA Subjective Patient is a a 25 year old male PMHx of PSO, autism spectrum disorder bipolar is here to follow up for arthralgia, working diagnosis possible PsA. On Cosentyx. Interim hx 12/26/22: Patient was last seen in 06/14. We continued Cosentyx 300 mg monthly and naproxen. Patient is here with the mother. Today patient mentioned that he is doing good. Have no active complaints. His skin is clearing up and joint pain controlled on Cosentyx. He mentioned Naproxen is also helping. He gets joint pains if he miss naproxen. Current meds: cosentyx 300 mg SQ every 28 days since September 2021. Naproxen 500 mg bid Previous medication MTX - did'nt help Review of Systems: Other systems reviewed and negative or noncontributory except as stated in the HPI. Home Medications: Current Outpatient Medications: ??? amitriptyline (Elavil) 25 MG tablet, Take 1 (one) tablet by mouth at bedtime, Disp: , Rfl: ??? buPROPion SR 12hr (WELLBUTRIN SR) 200 [...] supply, Disp: 120 mL, Rfl: 11 ??? melatonin 3 MG tablet, Take 1 (one) tablet by mouth at bedtime, Disp: , Rfl: ??? naproxen (Naprosyn) 500 MG tablet, Take 1 (one) tablet by mouth 2 times daily, Disp: 120 tablet, Rfl: 1 ??? olanzapine (ZYPREXA) 10 MG tablet, Take 1 (one) tablet by mouth once daily, Disp: , Rfl: ??? secukinumab (Cosentyx) 150 MG/ML SOAJ pen, Inject 300 (three hundred) mg subcutaneously every 28 days, Disp: 2 mL, Rfl: 3 ??? vitamin D3 (Cholecalciferol) 25 MCG (1000 UNITS) tablet, Take 1 (one) tablet by mouth once daily, Disp: , Rfl: Adverse Drug Reactions: Allergies Allergen Reactions ??? Food Headache Spaghetti sauce and mozzarella cheese Past Medical History: Past Medical History: Diagnosis Date ??? Autism ??? Bipolar 1 disorder (CMS/HCC) ??? Migraines ??? Psoriasis ??? Vitamin D deficiency Past Surgical History: No past surgical history on file. Immunization History: Immunization History Administered Date(s) Administered ??? Covid Pfizer primary monovalent 12+ yr 0.3mL Purple cap 09/22/2020, 10/13/2020 ??? DTP 03/08/1997, 04/23/1997, 07/26/1997, 04/06/1998 ??? DTaP 10/20/2002 ??? FLU VACCINE QUAD IIV4 SPLIT PF IM 05/30/2015, 03/26/2018, 03/18/2020 ??? FLU VACCINE QUAD RIV4 PF IM 04/03/2021, 06/06/2022 ??? HEP B VACCINE, PED/ADOL 1996, 02/03/1997, 07/26/1997 ??? Human Papilloma Virus Quadrivalent Vaccine 12/01/2009, 03/14/2010, 07/14/2010 ??? MENINGOCOCCAL CONJUGATE (MCV4P) 12/21/2013 ??? MENINGOCOCCAL, HISTORIC VACCINE 12/01/2009 ??? MMR 01/04/1998, 10/20/2002 ??? POLIO IPV 03/08/1997, 04/23/1997, 07/26/1997, 10/20/2002 [...] as Resident (Rheumatology) Will Naqvi MD as Spiritual Advisor (Rheumatology) Objective Physical Exam There were no vitals taken for this visit. GENERAL: NAD HEENT/NECK: No oropharyngeal lesions. CHEST/LUNGS: Normal work of breathing. CARDIOVASCULAR: Regular S1/S2, No ALEC. ABDOMEN: S/ND/NT. SKIN/NAILS: healing lesions of psoriasis on R legs PSYCH: Alert, appropriately interactive. NEURO: Sensation intact [...] alignment. Bone density and texture are normal. ?? Left wrist: The osseous structures are intact and well aligned without acute fracture or dislocation. The joint spaces are preserved. No soft tissue swelling is present. ?? Left hand: The osseous structures are intact and well aligned without acute fracture or dislocation. The joint spaces are preserved. No soft tissue swelling is present. ?? Right shoulder: The osseous structures are intact without acute fracture. The glenohumeral and acromioclavicular joints are in anatomic alignment. Bone density and texture are normal. ?? Right wrist: The osseous structures are intact and well aligned without acute fracture or dislocation. The joint spaces are preserved. No soft tissue swelling is present. ?? Right hand: The osseous structures are intact and well aligned without acute fracture or dislocation. The joint spaces are preserved. No soft tissue swelling is present. ?EXAMINATION: XR SI JOINTS 3VW OR MORE 07/2021: ?? There is no erosion, sclerosis, widening, narrowing, or ankylosis of either sacroiliac joint. There is no fracture. The hip joint spaces are normal. ? IMPRESSION: ?? No acute fracture identified. Assessment & Recommendations #. Psoriasis and possible psoriatic arthritis: Onset:2020. Phenotype: Polyarthralgia involving knees, ankles and hands. No signs of active synovitis , dactylitis on enthesitis. Skin lesions healing up X-rays without any erosive disease. On Cosentyx 300 mg SQ every month (since September 2001) Naproxen 500 mg bid #. Drug Toxicity Monitoring (naproxen): CBC, CMP monitoring ?? #. Long-Term Immunosuppression due to Drug Therapy (Cosentyx): HBV, HCV, TB quant. Negative HBV (2021), HCV (2021), TB Quant (2021)-reordered. Immunizations per PCP: for all patients on immunosuppressive therapy with Cosentyx I recommend annual influenza vaccine, COVID19 vaccine, Prevnar, Pneumovax, Shingrix. Avoid live vaccines. Patient advised to contact clinic in case of any infections or antibiotic use. ?? Recommendations: [] Continue Cosentyx 300 mg SQ every month [] Naproxen 500 mg bid [] CBC, CMP for monitoring been on Naproxen #. Follow-up: In 6 months or sooner if needed with me and Dr. Naqvi. ?? This patient was seen and staffed with attending Dr. Grayson Randhawa MD Rheumatology Fellow [facility] Encounter orders: Orders Placed This Encounter ??? QUANTIFERON-TB GOLD PLUS 4-TUBE Standing Status: Future Standing Expiration Date: 12/27/2023 Order Specific Question: Release to patient Answer: Immediate Associated attestation - Guillermo Galicia MD - 12/27/2022 9:16 AM CDT Rheumatology Attending Attestation: Date of Service: 12/26/22 I have seen and examined the patient with the fellow and I agree with the findings and plan of careas documented by the fellow. Encounter Diagnoses: 1. Psoriatic arthritis (CMS/HCC) 2. Psoriasis 3. 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CMS/HCC) 4. MCFP current use of non-steroidal anti-inflammatories (NSAID) 5. Screening-pulmonary TB Previously supervised by Dr. Naqvi who is out of the office currently. Status: well-controlled Continue: - Cosentyx 300 mg SC q28d (since Sep 2021) - Naproxen 500 mg PO BID (has worsening polyarthritis with skipping doses, risk/benefit favors cont'd use) RV ~6m with Ilia Additional contributions to medical decision making for today's encounter: I reviewed the patient'schart including review of clinical notes, laboratory results, and imaging results. I educated the patient regarding risks and benefits of the management plan, their medical problems, and contingency plans for worsening symptoms. Total time spent reviewing records, conducting interview and physical,counseling, care coordination, placing any orders for investigative studies and/or medications, anddocumentation on the day of the encounter: 30+ minutes. Guillermo Galiica MD, FACP Director, Rheumatology Fellowship Program Department of Internal Medicine [facility] Encounter Orders and Future Appointments: Orders Placed This Encounter QUANTIFERON-TB GOLD PLUS 4-TUBE Future Appointments Date Time Provider Department Center 02/04/2023 11:00 AM Richard Chacon III, MD [id number] [facility] 03/21/2023 2:30 PM Ismael Castro, PhD SLMOOKREPRANAY [facility] 03/21/2023 3:00 PM Froilan Monae MD SLUCAREOTOGL [facility] 07/03/2023 1:30 PM Pineda Randhawa MD [id number] [facility] documented in this encounter Plan of Treatment Upcoming Encounters Date Type Department Care Team (Late st Contact Info) Description 10/21/2024 1:30 PM CDT Office Visit [facility] - Rheumatology [address] [place] [phone] Paulino Youngblood MD [address] [place] [address] [place] [phone] 11/30/2024 3:00 PM CDT Office Visit [facility] - ENT [address] [place] [phone] Froilan Monae MD [address] [place] [address] DEPT [place] [address] 02/15/2025 10:00 AM CDT Office Visit [facility] - Internal Med [address] [place] [phone] Richard Chacon III, MD [address] [place] [address] [address] [place] [address] documented as of this encounter Results * QUANTIFERON-TB GOLD PLUS 4-TUBE (11/22/2023 9:49 AM CDT) [facility] QuantiFERON Mitogen Minus NIL 9.99 IU/mL 11/27/2023 8:48 PM CDT [facility] ([facility]) QuantiFERON Nil Value 0.01 IU/mL 11/27/2023 8:48 PM CDT [facility] ([facility]) QuantiFERON Plus TB1 Minus NIL 0.02 <=0.34 IU/mL 11/27/2023 8:48 PM CDT [facility] ([facility]) QuantiFERON Plus TB2 Minus NIL 0.03 <=0.34 IU/mL 11/27/2023 8:48 PM CDT [facility] ([facility]) QuantiFERON-TB Gold Plus Negative Negative 11/27/2023 8:48 PM CDT [facility] ([facility]) Comment: INTERPRETIVE INFORMATION:Quantiferon TB Gold Plus Interferon [...] Mycobacterium tuberculosis Infection -- [place], 2010 (http://www.cdc.gov/mmwr/preview/mmwrhtml/pk0121y3.htm), for more information concerning test performance in low-prevalence populations and use in occupational screening. 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-inflammatories (NSAID) Encounter for long-term (current) use of non-steroidal anti-inflammatories Screening-pulmonary TB Screening examination for pulmonary tuberculosis documented in this encounter Care Teams Seam Sewer Relationship Specialty Start Date End Date Richard Chacon III, MD [address] [place] [phone] PCP - General Internal Medicine 01/29/22 Christa Velez APRN-LUMBER RACKER [address] [phone] Psychiatrist Nurse Practitioner 08/07/21 Morgan Randhawa MD [address] [place] [phone] Resident - PCP Internal Medicine 01/29/22 Pineda Randhawa MD [address] [place] [phone] Resident Rheumatology 12/24/22 Will Naqvi MD [address] [place] [phone] Spiritual Advisor Rheumatology 12/24/22 documented as of this encounter
--- OUTSIDE RECORDS SUMMARY | 2024-07-15 18:38 | XMS_ITS | Encounter Summary ---
Author Organization [facility] Address [address] [place] [address] Care Team Providers Care Tank Calibrator Name Role Phone Unavailable Primary Care Provider Unavailabl e Encounter Details Date Type Department Care Team (Late Contact Info) Description 07/21/2021 Orders Only [facility] [address] [place] [address] Kirk Sue MD [address] [place] [address] High risk medications (not anticoagulants) long-term use [...] Office Visit [facility] - Rheumatology [address] [place] [address], [place] [phone] Paulino Youngblood MD [address] [place] [address] [place] [phone] 11/30/2024 3:00 PM CDT Office Visit [facility] - ENT [address] [place] [address], [place] [phone] Froilan Monae MD [address] [place] [address] [address] [place]PT [place] [address] 02/15/2025 10:00 AM CDT Office Visit [facility] - Internal Med [address] [place] [address], [place] [phone] Richard Chacon III, MD [address] [place] [address] [address] [place] [phone] documented as of this encounter Procedures Procedure Name Priority Date/Time Associated Diagnosis Comments CBC W AUTO DIFFERENTIAL Routine 07/24/2021 9:50 AM PHONE COUNSELOR High risk medications (not anticoagulants) long-term use COMPREHENSIVE METABOLIC PANEL Routine 07/24/2021 9:50 AM PHONE COUNSELOR High risk medications (not anticoagulants) long-term use documented in this encounter Results * COMPREHENSIVE METABOLIC PANEL (07/24/2021 9:50 AM PHONE COUNSELOR) Glucose 102 65 - 139 mg/dL [facility] Comment: ? Non-fasting reference interval BUN 13 7 - 25 mg/dL [facility] Creatinine 1.04 0.60 - 1.35 mg/dL [facility] eGFR by MDRD 100 > OR = 60 mL/min/1. 73m2 [facility] eGFR by MDRD 116 > OR = 60 mL/min/1. 73m2 [facility] BUN/Creatinine Ratio NOT APPLICABLE 6 - 22 (calc) [facility] Sodium 140 135 - 146 mmol/L [facility] Potassium 4.3 3.5 - 5.3 mmol/L [facility] Chloride 105 98 - 110 mmol/L [facility] CO2 26 20 - 32 mmol/L [facility] Calcium 9.5 8.6 - 10.3 mg/dL [facility] Protein Total 6.4 6.1 - 8.1 g/dL [facility] Albumin 4.4 3.6 - 5.1 g/dL [facility] Globulin Total 2.0 1.9 - 3.7 g/dL (calc) [facility] Albumin/Globuli n Ratio 2.2 1.0 - 2.5 (calc) [facility] Bilirubin Total 0.5 0.2 - 1.2 mg/dL [facility] Alkaline Phosphatase 116 36 - 130 U/L [facility] AST 15 10 - 40 U/L [facility] ALT 45 9 - 46 U/L [facility] Comment: Test Performed at: [facility] [place], [place] ??[phone] SIRIA AGUILAR DO,MPH Blood BLOOD SPECIMEN / Unknown 07/24/2021 9:50 AM PHONE COUNSELOR 07/24/2021 9:51 AM PHONE COUNSELOR Estee Peck MD LAB - CHEMISTRY ORDE MARY Performing Organization Address City/State/[facility] Co de Phone Number [facility] [address] [place] [address] * (ABNORMAL) CBC WITH DIFFERENTIAL (07/24/2021 9:50 AM PHONE COUNSELOR) White Blood Cell Count 5.7 3.8 - 10.8 Thousand/u L [facility] RBC 4.73 4.20 - 5.80 Million/uL [facility] Hemoglobin 13.5 13.2 - 17.1 g/dL [facility] Hematocrit 40.7 38.5 - 50.0 % [facility] MCV 86.0 80.0 - 100.0 fL [facility] MCH 28.5 27.0 - 33.0 pg [facility] MCHC 33.2 32.0 - 36.0 g/dL [facility] RDW 13.3 11.0 - 15.0 % [facility] Platelet Count 210 140 - 400 Thousand/u L [facility] MPV 9.7 7.5 - 12.5 fL [facility] Neutrophil Absolute 4121 1500 - 7800 cells/uL [facility] Lymphocytes Absolute 1311 850 - 3900 cells/uL [facility] Absolute Monocytes 160(L) 200 - 950 cells/uL [facility] Eosinophils Absolute 80 15 - 500 cells/uL [facility] Basophils Absolute 29 0 - 200 cells/uL [facility] Granulocytes % 72.3 % [facility] Lymphocytes % 23.0 % [facility] Monocytes % 2.8 % [facility] Eosinophils % 1.4 % [facility] Basophils % 0.5 % [facility] Comment: REPORT COMMENT: FASTING:NO Test Performed at: [facility] [address] [place], [place] ??[phone] SIRIA AGUILAR DO,MPH Blood BLOOD SPECIMEN / Unknown 07/24/2021 9:50 AM PHONE COUNSELOR 07/24/2021 9:51 AM PHONE COUNSELOR Estee Peck MD LAB - HEMATOLOGY ORD ERABLES Performing Organization Address City/State/[facility] Co de Phone Number [facility] [address] [place] [address] documented in this encounter Visit Diagnoses Diagnosis High risk medications (not anticoagulants) long-term use Encounter for long-term (current) use of other medications documented in this encounter
--- OUTSIDE RECORDS SUMMARY | 2024-07-15 18:38 | XMS_ITS | Encounter Summary ---
Author Organization [facility] Address [address] [facility] [place] [address] Care Team Providers Care Metropolitan Editor Name Role Phone Unavailable Primary Care Provider Unavailabl e Encounter Details Date Type Department Care Team (Latest Contact Info) Description 08/02/2021 10:01 AM BEEF GRADER - 08/02/2021 11:59 PM BEEF GRADER Hospital Encounter [facility] OP DRAW STATION [address] [place] [address] Estee Peck MD [address] [facility] 3 [place] [address] Discharge Disposition: Home or Self Care Social [...] COVID-19? No / Unsure 08/02/2021 9:31 AM BEEF GRADER documented as of this encounter Medications at Time of Discharge Medication Sig Dispensed Refills Start Date End Date buPROPion SR 12hr (WELLBUTRIN SR) 200 MG tablet Take 1 (one) tablet by mouth 2 times daily 03/06/2021 citalopram (CELEXA) 40 MG tablet TAKE 1 TABLET BY MOUTH EVERY DAY IN THE MORNING 03/08/2021 folic acid (FOLVITE) 1 MG tabletIndications:Oth er psoriasis Take 1 daily except the day you take methotrexate 30 tablet 11 07/07/2021 ketoconazole (NIZORAL) 2 % shampooIndications:Ot her psoriasis Apply to wet hair, leave on for 3 minutes, then rinse; three times weekly. 30 days supply 120 mL 11 04/17/2021 olanzapine (ZYPREXA) 10 MG tablet Take 1 (one) tablet by mouth once daily calcipotriene (DOVONEX) 0.005 % creamIndications:Psor iasis Apply to affected area 2 times daily 60 g 1 04/03/2021 10/16/2021 clobetasol (TEMOVATE) 0.05 % ointmentIndications:O ther psoriasis Apply to affected area on the knees and elbows BID. 30 day supply. 60 g 3 04/17/2021 09/25/2021 methotrexate 2.5 MG tabletIndications:Oth er psoriasis TAKE 6 TABLETS BY MOUTH EVERY 7 DAYS 24 tablet 07/28/2021 08/22/2021 naproxen (NAPROSYN) 500 MG tabletIndications:Art hralgia, unspecified joint Take 1 (one) tablet by mouth 2 times daily 120 tablet 1 08/02/2021 11/13/2021 OLANZapine (ZYPREXA) 2.5 MG tablet TAKE 1 TABLET BY MOUTH EVERY DAY IN THE MORNING 03/06/2021 06/06/2022 documented as of this encounter Plan of Treatment Upcoming Encounters Date Type Department Care Team (Late st Contact Info) Description 10/21/2024 1:30 PM CDT Office Visit [facility] Rheumatology [address] [place] [phone] Paulino Youngblood MD [address] [place] [address] [place] [phone] 11/30/2024 3:00 PM CDT Office Visit [facility] ENT [address] [place] [phone] Froilan Monae MD [address] [place] [address] 2L [place] [address] 02/15/2025 10:00 AM CDT Office Visit [facility] - Internal Med [address] [place] [address], [place] [phone] Richard Chacon III, MD [address] [place] [address] 2L [place] [phone] documented as of this encounter Procedures Procedure Name Priority Date/Time Associated Diagnosis Comments QUANTIFERON-TB GOLD PLUS 4-TUBE Routine 08/02/2021 10:18 AM BEEF GRADER Psoriasis Arthralgia, unspecified joint CYCLIC CITRUL PEPTIDE ANTIBODY IGG/IGA (CCP) Routine 08/02/2021 10:18 AM BEEF GRADER Psoriasis Arthralgia, unspecified joint RHEUMATOID FACTOR BLOOD QUANTITATIVE Routine 08/02/2021 10:18 AM BEEF GRADER Psoriasis Arthralgia, unspecified joint C-REACTIVE PROTEIN Routine 08/02/2021 10 :18 AM BEEF GRADER Psoriasis Arthralgia, unspecified joint GONZALES BLOOD SCREEN W/REFLEX TITER Routine 08/02/2021 10:18 AM BEEF GRADER Psoriasis Arthralgia, unspecified joint HLA TYPING B27 Routine 08/02/2021 10:18 AM BEEF GRADER Psoriasis Arthralgia, unspecified joint ERYTHROCYTE SEDIMENTATION RATE Routine 08/02/2021 10:18 AM BEEF GRADER Psoriasis Arthralgia, unspecified joint documented in this encounter Results * CYCLIC CITRUL PEPTIDE ANTIBODY IGG/IGA (CCP) (08/02/2021 10:18 AM BEEF GRADER) CCP Antibodies IgG/IgA 2 0 - 19 units 08/03/2021 11:07 PM BEEF GRADER [facility] ([facility]) Comment: ?Negative ? <20 ?Weak positive ?20 - 39 ?Moderate positive ??40 - 59 ?Strong positive ?>59 Blood BLOOD SPECIMEN / Unknown Lab Venipuncture / Unknown 08/02/2021 10:18 AM BEEF GRADER 08/02/2021 11:25 AM BEEF GRADER Narrative [facility] ([facility]) - 08/03/2021 11:07 PM BEEF GRADER Performed at: ??01 - [facility] [address] ??[id number] Zig Zag Stitcher: Gaviota Krishnamurthy MD, Phone: ??[phone] Estee Peck MD LAB - SEROLOGY ORDER SUDEEP Performing Organization Address City/[facility]/ZIP Co de Phone Number [facility] ([facility]) [address] [phone] * RHEUMATOID FACTOR BLOOD QUANTITATIVE (08/02/2021 10:18 AM BEEF GRADER) Rheumatoid Factor <15 <30 IU/mL 08/02/2021 11:57 AM BEEF GRADER [facility] Rheumatoid Factor Screen Negative Negative 08/02/2021 11:57 AM BEEF GRADER [facility] Blood BLOOD SPECIMEN / Unknown Lab Venipuncture / Unknown 08/02/2021 10:18 AM BEEF GRADER 08/02/2021 11:25 AM BEEF GRADER Estee Peck MD LAB - CHEMISTRY ALEENA HERNANDEZ [address] [address], [facility] [phone] * GONZALES BLOOD SCREEN W/REFLEX TITER (08/02/2021 10:18 AM BEEF GRADER) GONZALES IgG None Detected None Detected 08/04/2021 8:04 AM BEEF GRADER [facility]) Comment: If suspicion of connective tissue disease is strong and GONZALES EIA is negative, consider testing for GONZALES by IFA ([id number]). INTERPRETIVE INFORMATION: Anti-Nuclear Antibodies (GONZALES), IgG by DEDE Antinuclear Antibodies (GONZALES), IgG by DEDE: GONZALES specimens are screened using enzyme-linked immunosorbent assay (DEDE) methodology. All DEDE results reported as Detected are further tested by indirect fluorescent assay (IFA) using HEp-2 substrate with an IgG-specific conjugate. The GONZALES DEDE screen is designed to detect antibodies against dsDNA, histones, SS-A (Ro), SS-B (La), Jon, Jon/TIMBER SETTER, Scl-70, Azeb-1, centromeric proteins, other antigens extracted from the HEp-2 cell nucleus. GONZALES DEDE assays have been reported to have lower sensitivities than GONZALES IFA for systemic autoimmune rheumatic diseases (SARD). Negative results do not necessarily rule out SARD. Performed By: [facility] [address] [place] [address] Winding Inspector: Kiarra Fowler MD Blood BLOOD SPECIMEN / Unknown Lab Venipuncture / Unknown 08/02/2021 10:18 AM BEEF GRADER 08/02/2021 11:25 AM BEEF GRADER Estee Pcek MD LAB - CHEMISTRY ALEENA HERNANDEZ [facility] [employer] [facility]) [address] * HLA TYPING B27 (08/02/2021 10:18 AM BEEF GRADER) HLA-B27 Negative Negative 08/04/2021 5:25 PM BEEF GRADER [facility]) Comment: INTERPRETIVE INFORMATION: HLA-B27 HLA-B27 is a serologically defined allele of the human HLA-B locus. The presence of the HLA-B27 antigen is strongly associated with ankylosing spondylitis and related disorders. This test was developed and its performance characteristics determined by [facility]. It has not been cleared or approved by the [place] Food and Drug Administration. This test was performed in a CLIA certified laboratory and is intended for clinical purposes. Performed by [facility], [address] [place] [id number] [email or web address], Kiarra Fowler MD, Lab. Director Blood BLOOD SPECIMEN / Unknown Lab Venipuncture / Unknown 08/02/2021 10:18 AM BEEF GRADER 08/02/2021 11:25 AM BEEF GRADER Estee Peck MD LAB - CHEMISTRY ALEENA HERNANDEZ [facility] [employer] ([facility]) [address] [place] [address], [facility] * (ABNORMAL) C-REACTIVE PROTEIN (08/02/2021 10:18 AM BEEF GRADER) C-Reactive Protein 0.7(H) <=0.5 mg/dL 08/02/2021 11:57 AM BEEF GRADER [facility] Blood BLOOD SPECIMEN / Unknown Lab Venipuncture / Unknown 08/02/2021 10:18 AM BEEF GRADER 08/02/2021 11:25 AM BEEF GRADER Estee Peck MD LAB - CHEMISTRY ALEENA HERNANDEZ Performing Organization Address [facility]/ZIP Co de Phone Number [address] [address], [place] [phone] * ERYTHROCYTE SEDIMENTATION RATE (08/02/2021 10:18 AM BEEF GRADER) Erythrocyte Sedimentation Rate Westergren 9 0 - 15 MM/HR 08/02/2021 11:46 AM BEEF GRADER [facility] Blood BLOOD SPECIMEN / Unknown Lab Venipuncture / Unknown 08/02/2021 10:18 AM BEEF GRADER 08/02/2021 11:28 AM BEEF GRADER Estee Peck MD LAB - HEMATOLOGY ORD RICHY Performing Organization Address City/[facility]/ZIP Co de Phone Number [address] [address], [place] [phone] * QUANTIFERON-TB GOLD PLUS 4-TUBE (08/02/2021 10:18 AM BEEF GRADER) [facility] QuantiFERON NIL 0.02 IU/mL 12:03 AM BEEF GRADER [employer] [facility]) Comment: Performed By: [facility] [address] [place] [address] Winding Inspector: Kiarra Fowler MD QuantiFERON TB Gold Plus Negative Negative 08/05/2021 12:03 AM [facility] [employer] [facility]) Comment: Interpretive Data: Quantiferon TB Gold Plus [...] Mycobacterium tuberculosis Infection --- [place], 2010 (http://www.cdc.gov/mmwr/preview/mmwrhtml/oz9706l5.htm), for more information concerning test performance in low-prevalence populations and use in occupational screening. QuantiFERON Plus TB1 Minus NIL 0.00 0.00 - 0.34 IU/mL 08/05/2021 12:03 AM BEEF GRADER [employer] ([facility]) QuantiFERON Plus TB2 Minus NIL 0.00 0.00 - 0.34 IU/mL 08/05/2021 12:03 AM BEEF GRADER [employer] ([facility]) QuantiFERON Mitogen Minus NIL >10.00 IU/mL 08/05/2021 12:03 AM BEEF GRADER [employer] [facility]) Blood BLOOD SPECIMEN / Unknown Lab Venipuncture / Unknown 08/02/2021 10:18 AM BEEF GRADER 08/02/2021 11:52 AM BEEF GRADER Estee Peck MD LAB - CHEMISTRY ALEENA HERNANDEZ Performing Organization Address City/State/[facility] Co de Phone Number [facility]) [address] documented in this encounter Visit Diagnoses Diagnosis Psoriasis Other psoriasis Arthralgia, unspecified joint documented in this encounter
--- OUTSIDE RECORDS SUMMARY | 2024-07-15 18:38 | XMS_ITS | Encounter Summary ---
Author Organization [facility] Address [address] [facility] [place] [address] Care Team Providers Care Shoes Hand Sewer Name Role Phone Unavailable Primary Care Provider Unavailabl e Reason for Visit * Reason Comments Refill Request Encounter Details Date Type Department Care Team (Late st Contact Info) Description 07/28/2021 Refill [facility] [address] [place] [address] Estee Peck MD [address] DEPT OF DERMATOLOGY [place], [place] [phone] Refill Request Social History Tobacco Use Types [...] encounter Miscellaneous Notes * Telephone Encounter - Elsa Orellana MA - 07/28/2021 11:22 AM CST LV 04/17/2021 NV 10/16/2021 RTC 6 months Elsa Orellana T SAMPLER documented in this encounter Plan of Treatment Upcoming Encounters Date Type Department Care Team (Late st Contact Info) Description 10/21/2024 1:30 PM CDT Office Visit [facility] Rheumatology [address] [place] [phone] Paulino Youngblood MD [address] [place] [address] [place] [phone] 11/30/2024 3:00 PM CDT Office Visit [facility] ENT [address] [place] [phone] Froilan Monae MD [address] [place] [address] DE[place] [address] 02/15/2025 10:00 AM CDT Office Visit [facility] - Internal Med [address] [place] [phone] Richard Chacon III, MD [address] [place] [address] 2L [place] [phone] documented as of this encounter Visit Diagnoses Diagnosis Other psoriasis documented in this encounter
--- OUTSIDE RECORDS SUMMARY | 2024-07-15 18:38 | XMS_ITS | Encounter Summary ---
Author Organization [facility] Address [address] [facility] [place] [address] Care Team Providers Care Natural Sciences Manager Name Role Phone Christa Velez APRN-INSURANCE COUNSELOR Unavailable [phone] Oswaldo BOSCH MD, Francis G Primary Care Provider [phone] Morgan Randhawa MD Unavailable Pineda Randhawa MD Unavailable Will Naqvi MD Unavailable Pineda Randhawa MD Unavailable Estee Peck MD Unavailable [phone] Oswaldo BOSCH MD, Francis G Unavailable Encounter Details Date Type Department Care Team (Late st Contact Info) Description 12/04/2021 Telephone [facility] [address] [place] [address] Vivian Tello MD No info available Social History Tobacco Use Types Packs/Day Years [...] encounter Miscellaneous Notes * Telephone Encounter - Shalonda Nuñez - 12/04/2021 1:47 PM CDT Current Provider name:Dr. Tello Reason for call: Pts mother called to cancel appt for 12/06/21, Please let pt know when they can be scheduled next. Patient Call Back number: [phone] documented in this encounter Plan of Treatment Upcoming Encounters Date Type Department Care Team (Late st Contact Info) Description 10/21/2024 1:30 PM CDT Office Visit [facility] - Rheumatology [address] [place] [phone] Paulino Youngblood MD [address] [place] [address] [place] [phone] 11/30/2024 3:00 PM CDT Office Visit [facility] - ENT [address] [place] [phone] Froilan Monae MD [address] [place] [address] [place] [address] 02/15/2025 10:00 AM CDT Office Visit [facility] - Internal Med [address] [place] [phone] Richard Chacon III, MD [address] [place] [address] 2L [place] [phone] documented as of this encounter Visit Diagnoses Not on filedocumented in this encounter Care Teams Natural Sciences Manager Relationship Specialty Start Date End Date Richard Chacon III, MD [address] [place] [address] 2[place] [phone] PCP - General Internal Medicine 01/29/22 Richard Chacon III, MD [address] 2L [place] [phone] PCP - Attributed-[facility] NIYAH SALCIDO P4P 11/23/23 Christa Velez APRN-INSURANCE COUNSELOR [address] [place] [phone] Psychiatrist Nurse Practitioner 08/07/21 Morgan Randhawa MD [address] [place] [place] [phone] Resident - PCP Internal Medicine 01/29/22 Pineda Randhawa MD [address] [place] [phone] Resident Rheumatology 12/24/22 Will Naqvi MD [address] 2[address] [place] [phone] Mixing House Operator Rheumatology 12/24/22 Pineda Randhawa MD [address] [place] [phone] Resident Rheumatology 02/04/23 Estee Peck MD [address] 3L [place] [address] Dermatology 02/04/23 documented as of this encounter
--- OUTSIDE RECORDS SUMMARY | 2024-07-15 18:38 | XMS_ITS | Encounter Summary ---
Author Organization [facility] Address [address] [facility] [place] [address] Care Team Providers Care Supervisor Television Chassis Repair Name Role Phone Christa Velez APRN-VENDER Unavailable [phone] Encounter Details Date Type Department Care Team (Late Contact Info) Description 10/06/2021 Orders Only [facility] [address] [place] [address] Kirk Sue MD [address] [place], [place] [phone] High risk medications (not anticoagulants) long-term use [...] Office Visit [facility] Rheumatology [address] [place] [address], [place] [phone] Paulino Youngblood MD [address] [place] [address] [place] [phone] 11/30/2024 3:00 PM CDT Office Visit [facility] - ENT [address] [place] [phone] Froilan Monae MD [address] [place] [address] [place] [address] 02/15/2025 10:00 AM CDT Office Visit [facility] - Internal Med [address] [place] [phone] Richard Chacon III, MD [address] [place] [address] [place] [phone] documented as of this encounter Visit Diagnoses Diagnosis High risk medications (not anticoagulants) long-term use Encounter for long-term (current) use of other medications documented in this encounter Care Teams Supervisor Television Chassis Repair Relationship Specialty Start Date End Date Christa Velez APRN-JESSICA [address] [place] [address] Psychiatrist Nurse Practitioner 08/07/21 documented as of this encounter
--- OUTSIDE RECORDS SUMMARY | 2024-07-15 18:38 | XMS_ITS | Encounter Summary ---
Author Organization [facility] Address [address] [facility] [place] [address] Care Team Providers Care Material Control Supervisor Name Role Phone Christa Velez APRN-[facility] Unavailable [phone] Oswaldo BOSCH MD, Francis G Primary Care Provider [phone] Morgan Randhawa MD Unavailable Reason for Visit * Evaluate & Treat (Routine) - Closed Specialty Diagnoses / Procedures Referred By Contdaphne t Referred To Contact ENT-Otolaryngology Diagnoses Hearing trouble, bilateral Richard Chacon III, MD [address] [place] [address] 2[place] [address] [facility] [address] [place] [phone] Referral ID Status Reason Start Date Expiration Date V isits Requested Visits Authorized [id number] Closed Specialty Services Required 01/29/2022 01/29/2023 30 30 Encounter Details Date Type Department Care Team (Late st Contact Info) Description 03/19/2022 2:30 PM CDT Testing Visit [facility] [address] [place] [phone] Richard Chacon III, MD [address] [place] [address] 2[place] [address] Ismael Castro, PhD [address] [place] [address] 2L [place] [address] Conductive hearing loss, bilateral ; Hearing trouble, bilateral Social History Tobacco Use Types Packs/Day [...] Description 10/21/2024 1:30 PM CDT Office Visit [facility] - Rheumatology [address] [place] [phone] Paulino Youngblood MD [address] [place] [address] [place] [phone] 11/30/2024 3:00 PM CDT [facility] [address] [place] [phone] Froilan Monae MD [address] [place] [address] [place] [address] 02/15/2025 10:00 AM CDT [facility] [address] [place] [phone] Richard Chacon III, MD [address] [place] [address] 2L [place] [phone] documented as of this encounter Procedures Procedure Name Priority Date/Time Associated Diagnosis Comments AUDIOLOGY/TYMPANOME TRY ORDER Routine 03/19/2022 2:11 PM CDT documented in this encounter Results * AUDIOLOGY/TYMPANOMETRY ORDER (03/19/2022 2:11 PM CDT) [...] hearing loss in the left ear. ??Speech Neurology Teacher Thresholds is in good agreement with pure tone average(see speech audiometry for details). Findings were reviewed and discussed with Manoj Roe [place] following the hearing evaluation. Plan: 1. The risks and benefits of my recommendations, as well as other treatment options were discussed today. 2. I recommend that the patient follow up with their facility, ENT or PCP PRN. 3. Retest post treatment. Ismael Castro, Ph.D., SKYLER., CCC-A Senior Compensation Consultant Director, Division of Audiology Department of Otolaryngology- Head & Neck Surgery [facility] Ismael Castro PhD AUDIOLOGY SERVICES O RDERABLES documented in this encounter Visit Diagnoses Diagnosis Conductive hearing loss, bilateral- Primary Hearing trouble, bilateral documented in this encounter Care Teams Material Control Supervisor Relationship Specialty Start Date End Date Richard Chacon III, MD [address] [phone] PCP - General Internal Medicine 01/29/22 Christa Velez APRN-BUSINESS INTELLIGENCE ENGINEER [address] [place] [address] Psychiatrist Nurse Practitioner 08/07/21 Morgan Randhawa MD [facility] [address] [facility] [place] [phone] Resident - PCP Internal Medicine 01/29/22 documented as of this encounter
--- OUTSIDE RECORDS SUMMARY | 2024-07-15 18:38 | XMS_ITS | Encounter Summary ---
Author Organization [facility] Health Address [address] [facility] [place] [address] Care Team Providers Care Strip Picker Name Role Phone Unavailable Primary Care Provider Unavailabl e Encounter Details Date Type Department Care Team (Late Contact Info) Description 07/07/2021 Orders Only [facility] [address] [place] [address] Kirk Sue MD [address] [place] [address] Other psoriasis Social History Tobacco Use Types [...] Visit [facility]ology [address] [place] [address], [place] [phone] Paulino Youngblood MD [address] [place] [address] [place] [phone] 11/30/2024 3:00 PM CDT [facility] [address] [place] [address], [place] [phone] Froilan Monae MD [address] [place] [address] [place] [address] 02/15/2025 10:00 AM CDT [facility] Med [address] [place] [phone] Richard Chacon III, MD [address] [place] [address] [place] [phone] documented as of this encounter Visit Diagnoses Diagnosis Other psoriasis- Primary documented in this encounter
--- OUTSIDE RECORDS SUMMARY | 2024-07-15 18:38 | XMS_ITS | Encounter Summary ---
Author Organization [facility] Address [address] [facility] [place] [address] Care Team Providers Care Special Procedures Tech Name Role Phone Christa Velez APRN-CONCRETE CONVEYOR OPERATOR Unavailable [phone] Encounter Details Date Type Department Care Team (Late Contact Info) Description 12/08/2021 Orders Only [facility] [address] [place] [address] Kirk Sue MD [address] [place], [place] [phone] High risk medications (not anticoagulants) long-term use [...] Office Visit [facility] Rheumatology [address] [place] [address], [place] [phone] Paulino Youngblood MD [address] [place] [address] [place] [phone] 11/30/2024 3:00 PM CDT Office Visit [facility] - ENT [address] [place] [phone] Froilan Monae MD [address] [place] [address] [place] [address] 02/15/2025 10:00 AM CDT Office Visit [facility] - Internal Med [address] [place] [phone] Richard Chacon III, MD [address] [place] [address] [place] [phone] documented as of this encounter Visit Diagnoses Diagnosis High risk medications (not anticoagulants) long-term use Encounter for long-term (current) use of other medications documented in this encounter Care Teams Special Procedures Tech Relationship Specialty Start Date End Date Christa Velez APRN-JESSICA [address] [place] [phone] Psychiatrist Nurse Practitioner 08/07/21 documented as of this encounter
--- OUTSIDE RECORDS SUMMARY | 2024-07-15 18:38 | XMS_ITS | Encounter Summary ---
Author Organization [facility] Address [address] [place] [address] Care Team Providers Care Medical Claims Specialist Name Role Phone Christa Velez APRN-RED CROSS WORKER Unavailable [phone] Encounter Details Date Type Department Care Team (Late Contact Info) Description 11/24/2021 Orders Only [facility] [address] [place] [address] Kirk Sue MD [address] [place], [place] [phone] High risk medications (not anticoagulants) long-term use [...] Visit [facility] [address] [place] [address], [place] [phone] Paulino Youngblood MD [address] [place] [address] [place] [phone] 11/30/2024 3:00 PM CDT Office Visit [facility] - ENT [address] [place] [phone] Froilan Monae MD [address] [place] [address] [place] [address] 02/15/2025 10:00 AM CDT Office Visit [facility] - Internal Med [address] [place] [phone] Richard Chacon III, MD [address] [place] [address] [place] [phone] documented as of this encounter Visit Diagnoses Diagnosis High risk medications (not anticoagulants) long-term use Encounter for long-term (current) use of other medications documented in this encounter Care Teams Medical Claims Specialist Relationship Specialty Start Date End Date Christa Velez APRN-JESSICA [address] [place] [phone] Psychiatrist Nurse Practitioner 08/07/21 documented as of this encounter
--- OUTSIDE RECORDS SUMMARY | 2024-07-15 18:38 | XMS_ITS | Encounter Summary ---
Author Organization [facility] Address [address] [place] [address] Care Team Providers Care Clinical Trial Leader Name Role Phone Christa Velez APRN-COMPUTER SYSTEMS ANALYST Unavailable [phone] Encounter Details Date Type Department Care Team (Late Contact Info) Description 09/15/2021 Orders Only [facility] [address] [place] [address] Kirk Sue MD [address] [place], [place] [phone] High risk medications (not anticoagulants) long-term use [...] Office Visit [facility] [address] [place] [address], [place] [phone] Paulino Youngblood MD [address] [place] [address] [place] [phone] 11/30/2024 3:00 PM CDT Office Visit [facility] - ENT [address] [place] [phone] Froilan Monae MD [address] [place] [address] [place] [address] 02/15/2025 10:00 AM CDT Office Visit [facility] - Internal Med [address] [place] [phone] Richard Chacon III, MD [address] [place] [address] [place] [phone] documented as of this encounter Visit Diagnoses Diagnosis High risk medications (not anticoagulants) long-term use Encounter for long-term (current) use of other medications documented in this encounter Care Teams Clinical Trial Leader Relationship Specialty Start Date End Date Christa Velez APRN-JESSICA [address] [place] [phone] Psychiatrist Nurse Practitioner 08/07/21 documented as of this encounter
--- OUTSIDE RECORDS SUMMARY | 2024-07-15 18:38 | XMS_ITS | Encounter Summary ---
Author Organization [facility] Address [address] [facility] [place] [address] Care Team Providers Care Vp Integrity Name Role Phone AyakacharlotteChrista APRN-PRODUCT SAFETY LEAD Unavailable Reason for Visit * Reason Comments Refill Request Encounter Details Date Type Department Care Team (Late st Contact Info) Description 08/22/2021 Refill [facility] [address] [place] [address] Estee Peck MD [address] [place] [address] Refill Request Social History Tobacco Use Types [...] COVID-19? No / Unsure 08/02/2021 9:31 AM TOOLING ENGINEER documented as of this encounter Miscellaneous Notes * Telephone Encounter - Elsa Orellana MA - 08/22/2021 9:56 AM CST LV 04/17/2021 [place] 10/16/2021 RTC 6 months Elsa Orellana ING ENGINEER documented in this encounter Plan of Treatment Upcoming Encounters Date Type Department Care Team (Late st Contact Info) Description 10/21/2024 1:30 PM CDT Office Visit [facility] [address] [place] [phone] Paulino Youngblood MD [address] [place] [address] [place] [phone] 11/30/2024 3:00 PM CDT Office Visit [facility] [address] [place] [phone] Froilan Monae MD [address] [place] [address] [place] [address] 02/15/2025 10:00 AM CDT Office Visit [facility] - Internal Med [address] [place] [phone] Richard Chacon III, MD [address] [place] [address] [place] [phone] documented as of this encounter Visit Diagnoses Diagnosis Other psoriasis documented in this encounter Care Teams Vp Integrity Relationship Specialty Start Date End Date Christa Velez APRN-PRODUCT SAFETY LEAD [address] [place] [phone] Psychiatrist Nurse Practitioner 08/07/21 documented as of this encounter
--- OUTSIDE RECORDS SUMMARY | 2024-07-15 18:38 | XMS_ITS | Encounter Summary ---
Author Organization [facility] Address [address] [facility] [place] [address] Care Team Providers Care Bondactor Machine Operator Name Role Phone Unavailable Primary Care Provider Unavailabl e Encounter Details Date Type Department Care Team (Latest Contact Info) Description 08/02/2021 Travel Social History Tobacco Use Types Packs/Day [...] COVID-19? No / Unsure 08/02/2021 9:31 AM CHILDREN'S TUTOR NURSERY documented as of this encounter Plan of Treatment Upcoming Encounters Date Type Department Care Team (Late st Contact Info) Description 10/21/2024 1:30 PM CDT [facility] [address] [place] [phone] Paulino Youngblood MD [address] [place] [address] [place] [phone] 11/30/2024 3:00 PM CDT Office Visit [facility] [address] [place] [address], [place] [phone] Froilan Monae MD [facility] 2L DEPT [place] [address] 02/15/2025 10:00 AM CDT Office Visit [facility] - Internal Med [address] [place] [phone] Richard Chacon III, MD [facility] [address] [facility] 2L [place] [phone] documented as of this encounter Visit Diagnoses Not on filedocumented in this encounter
--- OUTSIDE RECORDS SUMMARY | 2024-07-15 18:38 | XMS_ITS | Encounter Summary ---
Author Organization [facility] Address [address] [facility] [place] [address] Care Team Providers Care Holistic Pulser Name Role Phone AyakacharlotteChrista APRN-FLOWER MACHINE OPERATOR Unavailable [phone] Reason for Visit * Reason Onset Date Comments MEDICATION REFILL 01/26/2022 Encounter Details Date Type Department Care Team (Late st Contact Info) Description 01/26/2022 Refill [facility] [address] [facility], [place] [phone] Pineda Randhawa MD [address] [place] [address] [address] [place] [phone] MEDICATION REFILL Social History Tobacco Use [...] Telephone Encounter - Uma Garza RN - 01/26/2022 12:22 PM CDT Pharmacy states they did not receive Cosentyx prescription on 01/23/22, will pend. Refill Request Manoj Horner UVALDO: 01/17/22 NOV scheduled: 06/06/2022 Allergies: Allergies Allergen Reactions ??? Food Headache Spaghetti sauce and mozzarella cheese Pended Medication Order: Requested Prescriptions Pending Prescriptions Disp Refills ??? secukinumab (Cosentyx Sensoready Pen) 150 MG/ML auto-injector 12 mL 0 Sig: Inject 300 mg (2mL) subcutaneously at weeks 0, 1, 2, 3, and 4 and every 4 weeks thereafter documented in this encounter Plan of Treatment Upcoming Encounters Date Type Department Care Team (Late st Contact Info) Description 10/21/2024 1:30 PM CDT Office Visit [facility] - Rheumatology [address] [place] [phone] Paulino Youngblood MD [address] [place] [address] [place] [phone] 11/30/2024 3:00 PM CDT Office Visit [facility] - ENT [address] [place] [phone] Froilan Monae MD [address] [place] [address] [place] [address] 02/15/2025 10:00 AM CDT Office Visit [facility] - Internal Med [address] [place] [phone] Richard Chacon III, MD [address] [place] [address] [place] [phone] documented as of this encounter Visit Diagnoses Diagnosis Psoriatic arthritis (HCC) Psoriatic arthropathy documented in this encounter Care Teams Holistic Pulser Relationship Specialty Start Date End Date Christa Velez APRN-FLOWER MACHINE OPERATOR [address] [place] [phone] Psychiatrist Nurse Practitioner 08/07/21 documented as of this encounter
--- OUTSIDE RECORDS SUMMARY | 2024-07-15 18:38 | XMS_ITS | Encounter Summary ---
Author Organization [facility] Address [address] [place] [address] Care Team Providers Care Ross Furnace Operator Name Role Phone Christa Velez APRN-SLASHER RUNNER Unavailable [phone] Oswaldo BOSCH MD, Richard Sanchez Primary Care Provider [phone] Morgan Randhawa MD Unavailable Reason for Visit * Reason Onset Date Comments MEDICATION REFILL 10/01/2022 Encounter Details Date Type Department Care Team (Late st Contact Info) Description 10/01/2022 Refill [facility] [address] [facility] [phone] Pineda Randhawa MD [address] [facility] [address] [place] [phone] MEDICATION REFILL Social History Tobacco Use [...] * Telephone Encounter - Ainsley Jane - 10/01/2022 8:27 AM CDT Refill Request Manoj Horner UVALDO: 06/06/2022 NOV scheduled: 12/05/2022 LRF: 04/19/2022 Qty Disp: 2mL # of refills:3 Allergies: Allergies Allergen Reactions ??? Food Headache Spaghetti sauce and mozzarella cheese Pended Medication Order: Requested Prescriptions Pending Prescriptions Disp Refills ??? secukinumab (Cosentyx) 150 MG/ML SOAJ pen 2 mL 3 Sig: Inject 300 (three hundred) mg subcutaneously every 28 days documented in this encounter Plan of Treatment Upcoming Encounters Date Type Department Care Team (Late st Contact Info) Description 10/21/2024 1:30 PM CDT Office [facility] - Rhe[facility]ology [address] [place] [phone] Paulino Youngblood MD [address] [place] [address] [place] [phone] 11/30/2024 3:00 PM CDT Office Visit [facility] - ENT [address] [place] [phone] Froilan Monae MD [address] [place] [address] [place] [address] 02/15/2025 10:00 AM CDT Office [facility] - Internal Med [address] [place] [phone] Richard Chacon III, MD [address] [place] [address] [address]L [place] [phone] documented as of this encounter Visit Diagnoses Not on filedocumented in this encounter Care Teams Ross Furnace Operator Relationship Specialty Start Date End Date Richard Chacon III, MD [address] [place] [address] [address] [place] [phone] PCP - General Internal Medicine 01/29/22 Christa Velez APRN-SLASHER RUNNER [address] [place] [phone] Psychiatrist Nurse Practitioner 08/07/21 oMrgan Randhawa MD [address] [place] [address] [place] [address] Resident - PCP Internal Medicine 01/29/22 documented as of this encounter
--- OUTSIDE RECORDS SUMMARY | 2024-07-15 18:38 | XMS_ITS | Encounter Summary ---
Author Organization [facility] Health Address [address] [facility] [place] [address] Care Team Providers Care Fare Register Repairer Name Role Phone Unavailable Primary Care Provider Unavailabl e Encounter Details Date Type Department Care Team (Latest Contact Info) Description 08/02/2021 9:36 AM SPIRITUAL ADVISOR - 08/02/2021 10:00 AM SPIRITUAL ADVISOR Hospital Encounter [facility] DIAGNOSTIC RAD OP [address] [place] [phone] Estee Peck MD [address] [facility] 3 [place] [address] Discharge Disposition: Home or Self Care Social [...] COVID-19? No / Unsure 08/02/2021 9:31 AM SPIRITUAL ADVISOR documented as of this encounter Medications at [...] Office Visit [facility] - Rheumatology [address] [place] [phone] Paulino Youngblood MD [address] [place] [address] [place] [phone] 11/30/2024 3:00 PM CDT Office Visit [facility] - ENT [address] [place] [phone] Froilan Monae MD [address] [place] [address] 2L [place] [address] 02/15/2025 10:00 AM CDT Office Visit [facility] - Internal Med [address] [place] [address], [place] [phone] Richard Chacon III, MD [address] [place] [address] [address] [place] [phone] documented as of this encounter Procedures Procedure Name Priority Date/Time Associated Diagnosis Comments XR KNEE RIGHT 3VW Routine 08/02/2021 10: 00 AM SPIRITUAL ADVISOR Psoriasis Arthralgia, unspecified joint XR FOOT RIGHT 3VW OR MORE Routine 08/02/2021 10:00 AM SPIRITUAL ADVISOR Psoriasis Arthralgia, unspecified joint XR FOOT LEFT 3VW OR MORE Routine 08/02/2021 10:00 AM SPIRITUAL ADVISOR Psoriasis Arthralgia, unspecified joint XR KNEE LEFT 3VW Routine 08/02/2021 10:0 0 AM SPIRITUAL ADVISOR Psoriasis Arthralgia, unspecified joint XR HAND RIGHT 3VW OR MORE Routine 08/02/2021 10:00 AM SPIRITUAL ADVISOR Psoriasis Arthralgia, unspecified joint XR HAND LEFT 3VW OR MORE Routine 08/02/2021 10:00 AM SPIRITUAL ADVISOR Psoriasis Arthralgia, unspecified joint XR WRIST RIGHT 3VW OR MORE Routine 08/02/2021 10:00 AM SPIRITUAL ADVISOR Psoriasis Arthralgia, unspecified joint XR WRIST LEFT 3VW OR MORE Routine 08/02/2021 10:00 AM SPIRITUAL ADVISOR Psoriasis Arthralgia, unspecified joint XR SHOULDER RIGHT 2VW OR MORE Routine 08/02/2021 10:00 AM SPIRITUAL ADVISOR Psoriasis Arthralgia, unspecified joint XR SHOULDER LEFT 2VW OR MORE Routine 08/02/2021 10:00 AM SPIRITUAL ADVISOR Psoriasis Arthralgia, unspecified joint XR SI JOINTS 3VW OR MORE Routine 08/02/2021 10:00 AM SPIRITUAL ADVISOR Psoriasis Arthralgia, unspecified joint XR CHEST 2VW Routine 08/02/2021 10:00 AM SPIRITUAL ADVISOR Psoriasis Arthralgia, unspecified joint documented in this encounter Results * XR CHEST 2VW (08/02/2021 10:00 AM SPIRITUAL ADVISOR) Anatomical Region Laterality Modality Chest Radiographic Yoly ging 08/02/2021 10:0 3 AM SPIRITUAL ADVISOR Impressions 08/02/2021 5:18 PM SPIRITUAL ADVISOR FINDINGS/IMPRESSION: There is asymmetric elevation of the right hemidiaphragm. There is no focal consolidation, pleural effusion, or pneumothorax. The cardiomediastinal silhouette is normal. The visible bony thorax is intact. Report drafted by Efrain Barnes M.D. (resident) Dr. MYRA Pascual have personally reviewed and interpreted this examination/study. This report was electronically signed by MYRA MUELLER ??on 08/02/2021 5:18 PM . Narrative 08/02/2021 5:18 PM SPIRITUAL ADVISOR EXAMINATION: XR CHEST 2VW HISTORY: L40.9: Psoriasis M25.50: Arthralgia, unspecified joint COMPARISON: None. Procedure Note Myra Mueller MD - 08/02/2021 EXAMINATION: XR CHEST 2VW [...] This report was electronically signed by MYRA MUELLER on 08/02/2021 5:18 PM. Estee Peck MD DIAGNOSTIC IMAGING O RDERABLES * XR WRIST LEFT 3VW OR MORE (08/02/2021 10:00 AM SPIRITUAL ADVISOR) Anatomical Region Laterality Modality Wrist / Hand Radiographic Yoly ging 08/02/2021 10:0 5 AM SPIRITUAL ADVISOR Impressions 08/02/2021 10:41 AM SPIRITUAL ADVISOR IMPRESSION: No evidence of bony erosions or degenerative changes. Dictated by Paulo Barragan D.O. (Electronic Warfare Technician) I, Dr. EDISON FELIX MD have personally reviewed and interpreted this examination/study. This report was electronically signed by EDISON FELIX MD ??on 08/02/2021 10:41 AM . Narrative 08/02/2021 10:41 AM SPIRITUAL ADVISOR EXAMINATION: XR SHOULDER LEFT 2VW OR MORE, [...] degenerative changes. Dictated by Paulo Barragan D.O. (Electronic Warfare Technician) Dr. EDISON Pascual MD have personally reviewed and interpreted this examination/study. This report was electronically signed by EDISON FELIX MD on08/02/2021 10:41 AM . Estee Peck MD DIAGNOSTIC IMAGING O RDERABLES * XR WRIST RIGHT 3VW OR MORE (08/02/2021 10:00 AM SPIRITUAL ADVISOR) Anatomical Region Laterality Modality Wrist / Hand Radiographic Yoly ging 08/02/2021 10:0 2 AM SPIRITUAL ADVISOR Impressions 08/02/2021 10:40 AM SPIRITUAL ADVISOR IMPRESSION: No evidence of bony erosions or degenerative changes. Dictated by Paulo Barragan D.O. (Electronic Warfare Technician) Dr. EDISON Pascual MD have personally reviewed and interpreted this examination/study. This report was electronically signed by EDISON FELIX MD ??on 08/02/2021 10:40 AM . Narrative 08/02/2021 10:40 AM SPIRITUAL ADVISOR EXAMINATION: XR SHOULDER RIGHT 2VW OR MORE, [...] degenerative changes. Dictated by Paulo Barragan D.O. (Electronic Warfare Technician) Dr. EDISON Pascual MD have personally reviewed and interpreted this examination/study. This report was electronically signed by EDISON FELIX MD on08/02/2021 10:40 AM . Estee Peck MD DIAGNOSTIC IMAGING O RDERABLES * XR SI JOINTS 3VW OR MORE (08/02/2021 10:00 AM SPIRITUAL ADVISOR) Anatomical Region Laterality Modality Pelvis, Lower Extremity Radiogra [facility] 08/02/2021 10:5 8 AM SPIRITUAL ADVISOR Impressions 08/02/2021 11:48 AM SPIRITUAL ADVISOR IMPRESSION: No acute fracture identified. Dictated by Paulo Barragan MD (medical transcription radiology). Dr. EDISON Pascual MD have personally reviewed and interpreted this examination/study. This report was electronically signed by EDISON FELIX MD ??on 08/02/2021 11:48 AM . Narrative 08/02/2021 11:48 AM SPIRITUAL ADVISOR EXAMINATION: XR SI JOINTS 3VW OR MORE HISTORY: L40.9: Psoriasis M25.50: Arthralgia, unspecified joint COMPARISON: None. FINDINGS: There is no erosion, sclerosis, widening, narrowing, or ankylosis of either sacroiliac joint. There is no fracture. The hip joint spaces are normal. Procedure Note Edison Felix MD - 08/02/2021 EXAMINATION: XR SI JOINTS 3VW OR MORE HISTORY: L40.9: Psoriasis M25.50: Arthralgia, unspecified joint COMPARISON: None. FINDINGS: There is no erosion, sclerosis, widening, narrowing, or ankylosis of either sacroiliac joint. There is no fracture. The hip joint spaces are normal. IMPRESSION: No acute fracture identified. Dictated by Paulo Barragan MD (medical transcription radiology). Dr. EDISON Pascual MD have personally reviewed and interpreted this examination/study. This report was electronically signed by EDISON FELIX MD on08/02/2021 11:48 AM . Estee Peck MD DIAGNOSTIC IMAGING O RDERABLES * XR SHOULDER LEFT 2VW OR MORE (08/02/2021 10:00 AM SPIRITUAL ADVISOR) Anatomical Region Laterality Modality Upper Extremity Radiographic Yoly ging 08/02/2021 10:0 5 AM SPIRITUAL ADVISOR Impressions 08/02/2021 10:41 AM SPIRITUAL ADVISOR IMPRESSION: No evidence of bony erosions or degenerative changes. Dictated by Paulo Barragan D.O. (Electronic Warfare Technician) Dr. EDISON Pascual MD have personally reviewed and interpreted this examination/study. This report was electronically signed by EDISON FELIX MD ??on 08/02/2021 10:41 AM . Narrative 08/02/2021 10:41 AM SPIRITUAL ADVISOR EXAMINATION: XR SHOULDER LEFT 2VW OR MORE, [...] degenerative changes. Dictated by Paulo Barragan D.O. (Electronic Warfare Technician) Dr. EDISON Pascual MD have personally reviewed and interpreted this examination/study. This report was electronically signed by EDISON FELIX MD on08/02/2021 10:41 AM . Estee Peck MD DIAGNOSTIC IMAGING O RDERABLES * XR SHOULDER RIGHT 2VW OR MORE (08/02/2021 10:00 AM SPIRITUAL ADVISOR) Anatomical Region Laterality Modality Upper Extremity Radiographic Yoly ging 08/02/2021 10:0 2 AM SPIRITUAL ADVISOR Impressions 08/02/2021 10:40 AM SPIRITUAL ADVISOR IMPRESSION: No evidence of bony erosions or degenerative changes. Dictated by Paulo Barragan D.O. (Electronic Warfare Technician) Dr. EDISON Pascual MD have personally reviewed and interpreted this examination/study. This report was electronically signed by EDISON EFLIX MD ??on 08/02/2021 10:40 AM . Narrative 08/02/2021 10:40 AM SPIRITUAL ADVISOR EXAMINATION: XR SHOULDER RIGHT 2VW OR MORE, [...] degenerative changes. Dictated by Paulo Barragan D.O. (Electronic Warfare Technician) Dr. EDISON Pascual MD have personally reviewed and interpreted this examination/study. This report was electronically signed by EDISON FELIX MD on08/02/2021 10:40 AM . Estee Peck MD DIAGNOSTIC IMAGING O RDERABLES * XR KNEE RIGHT 3VW (08/02/2021 10:00 AM SPIRITUAL ADVISOR) Anatomical Region Laterality Modality Lower Extremity Radiographic Yoly ging 08/02/2021 10:1 2 AM SPIRITUAL ADVISOR Impressions 08/02/2021 10:42 AM SPIRITUAL ADVISOR IMPRESSION: No evidence of bony erosions or significant degenerative changes. Dictated by Paulo Barragan D.O. (Electronic Warfare Technician) Dr. EDISON Pascual MD have personally reviewed and interpreted this examination/study. This report was electronically signed by EDISON FELIX MD ??on 08/02/2021 10:42 AM . Narrative 08/02/2021 10:42 AM SPIRITUAL ADVISOR EXAMINATION: XR KNEE RIGHT 3VW, XR FOOT [...] degenerative changes. Dictated by Paulo Barragan D.O. (Electronic Warfare Technician) Dr. EDISON Pascual MD have personally reviewed and interpreted this examination/study. This report was electronically signed by EDISON FELIX MD on08/02/2021 10:42 AM . Estee Peck MD DIAGNOSTIC IMAGING O RDERABLES * XR KNEE LEFT 3VW (08/02/2021 10:00 AM SPIRITUAL ADVISOR) Anatomical Region Laterality Modality Lower Extremity Radiographic Yoly ging 08/02/2021 10:0 8 AM SPIRITUAL ADVISOR Impressions 08/02/2021 10:43 AM SPIRITUAL ADVISOR IMPRESSION: No evidence of bony erosions or significant degenerative changes. Dictated by Paulo Barragan D.O. (Electronic Warfare Technician) Dr. EDISON Pascual MD have personally reviewed and interpreted this examination/study. This report was electronically signed by EDISON FELIX MD ??on 08/02/2021 10:43 AM . Narrative 08/02/2021 10:43 AM SPIRITUAL ADVISOR EXAMINATION: XR KNEE LEFT 3VW, XR FOOT [...] degenerative changes. Dictated by Paulo Barragan D.O. (Electronic Warfare Technician) Dr. EDISON Pascual MD have personally reviewed and interpreted this examination/study. This report was electronically signed by EDISON FELIX MD on08/02/2021 10:43 AM . Estee Peck MD DIAGNOSTIC IMAGING O RDERABLES * XR FOOT LEFT 3VW OR MORE (08/02/2021 10:00 AM SPIRITUAL ADVISOR) Anatomical Region Laterality Modality Ankle / Foot Radiographic Yoly ging 08/02/2021 10:0 8 AM SPIRITUAL ADVISOR Impressions 08/02/2021 10:43 AM SPIRITUAL ADVISOR IMPRESSION: No evidence of bony erosions or significant degenerative changes. Dictated by Paulo Barragan D.O. (Electronic Warfare Technician) Dr. EDISON Pascual MD have personally reviewed and interpreted this examination/study. This report was electronically signed by EDISON FELIX MD ??on 08/02/2021 10:43 AM . Narrative 08/02/2021 10:43 AM SPIRITUAL ADVISOR EXAMINATION: XR KNEE LEFT 3VW, XR FOOT [...] degenerative changes. Dictated by Paulo Barragan D.O. (Electronic Warfare Technician) Dr. EDISON Pascual MD have personally reviewed and interpreted this examination/study. This report was electronically signed by EDISON FELIX MD on08/02/2021 10:43 AM . Estee Peck MD DIAGNOSTIC IMAGING O RDERABLES * XR FOOT RIGHT 3VW OR MORE (08/02/2021 10:00 AM SPIRITUAL ADVISOR) Anatomical Region Laterality Modality Ankle / Foot Radiographic Yoly ging 08/02/2021 10:1 2 AM SPIRITUAL ADVISOR Impressions 08/02/2021 10:42 AM SPIRITUAL ADVISOR IMPRESSION: No evidence of bony erosions or significant degenerative changes. Dictated by Paulo Barragan D.O. (Electronic Warfare Technician) Dr. EDISON Pascual MD have personally reviewed and interpreted this examination/study. This report was electronically signed by EDISON FELIX MD ??on 08/02/2021 10:42 AM . Narrative 08/02/2021 10:42 AM SPIRITUAL ADVISOR EXAMINATION: XR KNEE RIGHT 3VW, XR FOOT [...] degenerative changes. Dictated by Paulo Barragan D.O. (Electronic Warfare Technician) Dr. EDISON Pascual MD have personally reviewed and interpreted this examination/study. This report was electronically signed by EDISON FELIX MD on08/02/2021 10:42 AM . Estee Peck MD DIAGNOSTIC IMAGING O RDERABLES * XR HAND LEFT 3VW OR MORE (08/02/2021 10:00 AM SPIRITUAL ADVISOR) Anatomical Region Laterality Modality Wrist / Hand Radiographic Yoly ging 08/02/2021 10:0 5 AM SPIRITUAL ADVISOR Impressions 08/02/2021 10:41 AM SPIRITUAL ADVISOR IMPRESSION: No evidence of bony erosions or degenerative changes. Dictated by Paulo Barragan D.O. (Electronic Warfare Technician) Dr. EDISON Pascual MD have personally reviewed and interpreted this examination/study. This report was electronically signed by EDISON FELIX MD ??on 08/02/2021 10:41 AM . Narrative 08/02/2021 10:41 AM SPIRITUAL ADVISOR EXAMINATION: XR SHOULDER LEFT 2VW OR MORE, [...] degenerative changes. Dictated by Paulo Barragan D.O. (Electronic Warfare Technician) Dr. EDISON Pascual MD have personally reviewed and interpreted this examination/study. This report was electronically signed by EDISON FELIX MD on08/02/2021 10:41 AM . Estee Peck MD DIAGNOSTIC IMAGING O RDERABLES * XR HAND RIGHT 3VW OR MORE (08/02/2021 10:00 AM SPIRITUAL ADVISOR) Anatomical Region Laterality Modality Wrist / Hand Radiographic Yoly ging 08/02/2021 10:0 2 AM SPIRITUAL ADVISOR Impressions 08/02/2021 10:40 AM SPIRITUAL ADVISOR IMPRESSION: No evidence of bony erosions or degenerative changes. Dictated by Paulo Barragan D.O. (Electronic Warfare Technician) I, Dr. EDISON FELIX MD have personally reviewed and interpreted this examination/study. This report was electronically signed by EDISON FELIX MD ??on 08/02/2021 10:40 AM . Narrative 08/02/2021 10:40 AM SPIRITUAL ADVISOR EXAMINATION: XR SHOULDER RIGHT 2VW OR MORE, [...] degenerative changes. Dictated by Paulo Barragan D.O. (Electronic Warfare Technician) I, Dr. EDISON FELIX MD have personally reviewed and interpreted this examination/study. This report was electronically signed by EDISON FELIX MD on08/02/2021 10:40 AM . Estee Peck MD DIAGNOSTIC IMAGING O RDERABLES documented in this encounter Visit Diagnoses Diagnosis Psoriasis Other psoriasis Arthralgia, unspecified joint documented in this encounter
--- OUTSIDE RECORDS SUMMARY | 2024-07-15 18:38 | XMS_ITS | Encounter Summary ---
Author Organization [facility] Address [address] [place] [address] Care Team Providers Care Assembler [employer] Name Role Phone Unavailable Primary Care Provider Unavailabl e Reason for Visit * Reason Comments Arthritis Establish Care * Evaluate & Treat (Routine) - Closed Specialty Diagnoses / Procedures Referred By Contac t Referred To Contact Rheumatology Diagnoses Pain of both shoulder joints Estee Peck MD [address] [place] [address] [place] [address] Aff Slu Rheum [facility] [address] [place] [phone] Referral ID Status Reason Start Date Expiration Date V isits Requested Visits Authorized [id number] Closed Specialty Services Required 04/17/2021 04/17/2022 1 1 Encounter Details Date Type Department Care Team (Late st Contact Info) Description 08/02/2021 8:30 AM BELT FIXER Office Visit [facility] [address] [place] [phone] Estee Peck MD [address] [place] [address] [place] [address] Vivian Tello MD No info available Psoriasis (Primary Dx); Pain of both shoulder joints; Arthralgia, unspecified joint Social History Tobacco Use Types Packs/Day Years [...] COVID-19? No / Unsure 08/02/2021 9:31 AM BELT FIXER documented as of this encounter Last Filed Vital Signs Vital Sign Reading Time Taken Comments Blood Pressure 108/62 08/02/2021 8:28 AM BELT FIXER Pulse - - Temperature 36.8 ??C (98.2 ??F) 08/02/2021 8:28 AM CS T Respiratory Rate - - Oxygen Saturation - - Inhaled Oxygen Concentration - - Weight 110.9 kg (244 lb 9.6 oz) 08/02/2021 8:28 AM BELT FIXER Height 167.6 cm (5' 6 ) 08/02/2021 8:28 AM BELT FIXER Body Mass Index 39.48 08/02/2021 8:28 AM BELT FIXER documented in this encounter Patient Instructions * Patient Instructions* Vivian Tello MD - 08/02/2021 9:18 AM BELT FIXER Please get labs and xrays Continue methotrexate and folic acid Start naproxen 500 mg twice a day. Do not take other NSAIDs like Advil, Aleve Follow up in 1-[address] Tello and Dr. Farmer (Saturday) If you need to change or cancel your Rheumatology appointment - At the [facility]) at [facility] [facility], call [phone]. If you need a refill request, have your pharmacy fax a request to [phone]. If you need to leave a message for Dr. Tello, you can send her an electronic message via Rule. a voicemail at [phone]. Her office FAX number is [phone]. For after hours emergency only, you can call the [facility] lie detector operator at [phone] and ask for the [employer] communications department head to be paged. FIXER documented in this encounter Progress Notes * Vivian Tello MD - 08/02/2021 8:30 AM CST [facility] Division of Rheumatology New Patient Visit 08/02/2021 Referring Physician: Estee Peck MD [address] [facility] [address] [place] [address] [phone] Chief Complaint Patient presents with ??? Arthritis ??? Establish Care History of Present Illness: MANOJ SPEAR ( 1995) is a 25 year old male who presents with PMHx of PSO, bipolar to establish care for arthralgia. Patient states he has BL shoulder pain, hands, neck, knees, feet. It has been worsening since March 2021. Joints hurt in late afternoon and night time the most. Sometimes wakes up in AM with joint pain and stiffness, AM stiffness for 1 hour. He has had PSO since he was about 11 yo but started getting worse over the last year. On topicals for PSO and MTX started last month by dermatology, takes 7 pills/wk currently, it is helping with his PSO more than topicals but still having significant PSOpatches/lesions diffusely. Also reporting low back pain. Having swelling of hands and feet that lasts for a few hours then resolves. No clear description of sausage digit. Dad, paternal uncle has PSA Mother had childhood PSO Maternal aunt with UC and SLE Current meds: MTX 17.5 mg weekly (05/2021 - ) FA 1 mg daily Tylenol PRN ASA/caffeine pill PRN - helps Disease Hx: above Review of Systems: General: +fatigue, -fever, -wt loss/gain, daily functioning not limited HEENT: -dry eyes, -dry mouth, -eye redness, -eye pain, -oral/nasal ulcers CV: -chest pain Resp: -cough, -SOB GI: -abd pain, -constipation, -nausea, -vomiting, +diarrhea, -blood/mucus : -urine changes, -dysuria, -hematuria MSK: +arthralgia, -myalgia, +swelling, -erythema, -warmth, -AM stiffness, +low back pain Skin: +PSO lesions, -hair loss, -nail changes, -Raynaud, -photosensitivity, -acrocyanosis Neuro: -AN, +migraines, -vision changes, -muscle weakness, -paresthesias Psych: -depression, -anxiety ROS otherwise negative Past Medical/Surgical History: Past Medical History: Diagnosis Date ??? Autism ??? Bipolar 1 disorder ??? Migraines ??? Psoriasis ??? Vitamin D deficiency No past surgical history on file. Family History: family history includes Bipolar Disorder in his father and sister; Diabetes - Type 2 in his father and sister; Psoriasis in his father. Social History: Social History Socioeconomic History ??? Marital status: Single Spouse name: Not on file ??? Number of children: Not on file ??? Years of education: Not on file ??? Highest education level: Not on file Occupational History ??? Not on file Tobacco Use ??? Smoking status: Never Smoker ??? Smokeless tobacco: Never Used Substance and Sexual Activity ??? Alcohol use: No ??? Drug use: No ??? Sexual activity: Not on file Other Topics Concern ??? Special Diet Not Asked Social History Narrative ??? Not on file Social Determinants of Health Financial Resource Strain: Not on file Food Insecurity: Not on file Transportation Needs: Not on file Physical Activity: Not on file Stress: Not on file Social Connections: Not on file Intimate Partner Violence: Not on file Housing Stability: Not on file Current Medications: Current Outpatient Medications Medication Sig Dispense Refill ??? buPROPion SR 12hr (WELLBUTRIN SR) 200 MG tablet Take 200 mg by mouth 2 times daily ??? calcipotriene (DOVONEX) 0.005 % cream Apply to affected area 2 times daily 60 g 1 ??? citalopram (CELEXA) 40 MG tablet TAKE 1 TABLET BY MOUTH EVERY DAY IN THE MORNING ??? clobetasol (TEMOVATE) 0.05 % ointment Apply to affected area on the knees and elbows BID. 30 day supply. 60 g 3 ??? folic acid (FOLVITE) 1 MG tablet Take 1 daily except the day you take methotrexate 30 tablet 11 ??? ketoconazole (NIZORAL) 2 % shampoo Apply to wet hair, leave on for 3 minutes, then rinse; threetimes weekly. 30 days supply 120 mL 11 ??? methotrexate 2.5 MG tablet TAKE 6 TABLETS BY MOUTH EVERY 7 DAYS 24 tablet 0 ??? naproxen (NAPROSYN) 500 MG tablet Take 1 (one) tablet by mouth 2 times daily 120 tablet 1 ??? olanzapine (ZYPREXA) 10 MG tablet Take 10 mg by mouth once daily. ??? OLANZapine (ZYPREXA) 2.5 MG tablet TAKE 1 TABLET BY MOUTH EVERY DAY IN THE MORNING No current facility-administered medications for this visit. Allergies: Allergies Allergen Reactions ??? Food Headache Spaghetti sauce and mozzarella cheese Physical Exam: BP 108/62 Temp 98.2 ??F (36.8 ??C) (Oral) Ht 5' 6 (1.676 m) Wt 244 lb 9.6 oz (110.9 kg) BMI 39.48 kg/m2 General: no distress, cooperative Skin: diffuse PSO patches, periungual erythema, no color change or livedo reticularis, normal temperature & turgor HEENT: conjunctivae and sclerae clear, EOMI, external ear normal, no oral or nasal ulceration, mucus membranes moist Neck: supple, normal ROM, no LAD Back: symmetric, no curvature, normal ROM, no paraspinal tenderness, midline low back and SI tenderness Chest/Lungs: lungs CTAB, no wheezes, rhonchi, or rales Heart: RRR, no murmur, no rub or gallop Abdomen; soft, non-tender, non-distended Neurologic: grossly intact, alert, muscle strength 5/5 Musculoskeletal Exam: Hands: S1T1 PIPs, DIPs, T2 MCPs & BL wrists, normal ROM Elbows: T1 BL, normal ROM Shoulders: T1 BL, normal ROM Knees: T1 BL, normal ROM Feet: MTPs SfT1 no dactylitis Lab/Diagnostics: - Assessment & Plan: 1. Psoriasis 2. Pain of both shoulder joints 3. Arthralgia, unspecified joint MANOJ SPEAR is a 25 year old male with PMHx of psoriasis who presents to establish care for polyarthralgias. Overall her history and exam are remarkable for worsening psoriasis and arthralgia. Recenly started on MTX with mild improvement of PSO but no significant change in arthralgia. Concern for possible PsA given severity of PSO, however description of arthralgia not as consistent with inflammatory arthritis and would suspect some improvement with MTX. At this time will investigate for underlying inflammatory arthritis. Recheck serologies and inflammatory markers and get xrays of affected areas as below. Will advise further treatment options at follow up visit. 1. Labs: as below 2. Radiology: XR hands, wrists, feet, shoulder, knees, SI 3. Medications: Start naproxen 500 mg BID. Continue MTX/FA per dermatology. 4. Other: Follow up with dermatology Instructed to take photos of any finger/toe swelling if it occurs 5. RTC in 1-2 mos Patient seen and examined and case discussed with Dr. Darian Tello MD Rheumatology Fellow [facility] Orders Placed This Encounter ??? XR HAND RIGHT 3VW OR MORE ??? XR HAND LEFT 3VW OR MORE ??? XR FOOT RIGHT 3VW OR MORE ??? XR FOOT LEFT 3VW OR MORE ??? XR KNEE LEFT 3VW ??? XR KNEE RIGHT 3VW ??? XR SHOULDER RIGHT 2VW OR MORE ??? XR SHOULDER LEFT 2VW OR MORE ??? XR SI JOINTS 3VW OR MORE ??? XR WRIST RIGHT 3VW OR MORE ??? XR WRIST LEFT 3VW OR MORE ??? XR CHEST 2VW ??? QUANTIFERON-TB GOLD PLUS 4-TUBE ??? ERYTHROCYTE SEDIMENTATION RATE ??? C-REACTIVE PROTEIN ??? HLA TYPING B27 ??? GONZALES BLOOD SCREEN W/REFLEX TITER ??? RHEUMATOID FACTOR BLOOD QUANTITATIVE ??? CYCLIC CITRUL PEPTIDE ANTIBODY IGG/IGA (CCP) ??? naproxen (NAPROSYN) 500 MG tablet Associated attestation - Nadege Farmer MD - 09/06/2021 1:16 PM CDT I have seen and examined the patient, reviewed available medical records, and agree with the findings, assessment, and plan as documented by Dr. Tello. Patient is a 25 year old male who presents for evaluation of possible psoriatic arthritis. He has had psoriasis since he was a child (over ten years), and has developed joint pains over the past six months. HE has pain in his shoulders, hips, knees, hands, wrists, and feet. He does note some diffuse swelling in his hands. He has morning stiffness for at least an hour daily. Exam: Alert, oriented, NAD Cognitive delay Significant psoriasis covering hands, arms, legs Bilateral wrists S1T1, PIPs SfT1, knees S0T1, +MTP squeeze A/P: 25 year old male who presents for initial evaluation of possible psoriatic arthritis. He is alreadyon MTX per rheumatology, has had minimal improvement, but has not been on it very long. Will obtainXR and lab as per Dr. Tello. Will start naproxen 500 mg bid. RTC 1-2 months to monitor response on NSAID and MTX. Suspect will need a biologic in the future, at least for psoriasis. Nadege Farmer MD Adult and Pediatric Rheumatology documented in this encounter Plan of Treatment Upcoming Encounters Date Type Department Care Team (Late st Contact Info) Description 10/21/2024 1:30 PM CDT Office Visit [facility] - Rheumatology [address] [place] [phone] Paulino Youngblood MD [address] [place] [address] [place] [phone] 11/30/2024 3:00 PM CDT [facility] [address] [place] [phone] Froilan Monae MD [address] [place] [address] [place] [address] 02/15/2025 10:00 AM CDT Office Visit [facility] - Internal Med [address] [place] [address] [place] [phone] Richard Chacon III, MD [address] [facility] [address] [place] [phone] documented as of this encounter Results * CYCLIC CITRUL PEPTIDE ANTIBODY IGG/IGA (CCP) (08/02/2021 10:18 AM BELT FIXER) Pathologist [facility] CCP Antibodies IgG/IgA 2 0 - 19 units 08/03/2021 11:07 PM BELT FIXER [facility] ([facility]) Comment: ?Negative ? <20 ?Weak positive ?20 - 39 ?Moderate positive ??40 - 59 ?Strong positive ?>59 Blood BLOOD SPECIMEN / Unknown Lab Venipuncture / Unknown 08/02/2021 10:18 AM BELT FIXER 08/02/2021 11:25 AM BELT FIXER Narrative [facility] ([facility]) - 08/03/2021 11:07 PM BELT FIXER Performed at: ??01 - [facility] [address] ??[id number] Welding Machine Feeder: Gaviota Krishnamurthy MD, Phone: ??[phone] Estee Peck MD LAB - [facility]OLOGY [facility] [address] [place] [phone] * RHEUMATOID FACTOR BLOOD QUANTITATIVE (08/02/2021 10:18 AM BELT FIXER) Pathologist [facility] Rheumatoid Factor <15 <30 IU/mL 08/02/2021 11:57 AM BELT FIXER [facility] Rheumatoid Factor Screen Negative Negative 08/02/2021 11:57 AM BELT FIXER [facility] Blood BLOOD SPECIMEN / Unknown Lab Venipuncture / Unknown 08/02/2021 10:18 AM BELT FIXER 08/02/2021 11:25 AM BELT FIXER Estee Peck MD LAB - CHEMISTRY ORDPratik HERNANDEZ Performing Organization Address City/[facility]/ZIP Co de Phone Number [address] [phone] [phone] * GONZALES BLOOD SCREEN W/REFLEX TITER (08/02/2021 10:18 AM BELT FIXER) GONZALES IgG None Detected None Detected 08/04/2021 8:04 AM BELT FIXER [facility] Comment: If suspicion of connective tissue disease is strong and GONZALES EIA is negative, consider testing for GONZALES by IFA ([id number]). INTERPRETIVE INFORMATION: Anti-Nuclear Antibodies (GONZALES), IgG by DEDE Antinuclear Antibodies (GONZALES), IgG by DEDE: GONZALES specimens are screened using enzyme-linked immunosorbent assay (DEDE) methodology. All DEDE results reported as Detected are further tested by indirect fluorescent assay (IFA) using HEp-2 substrate with an IgG-specific conjugate. The GONZALES DEDE screen is designed to detect antibodies against dsDNA, histones, SS-A (Ro), SS-B (La), Jon, Jon/MACHINIST TOOL AND DIE, Scl-70, Azeb-1, centromeric proteins, other antigens extracted from the HEp-2 cell nucleus. GONZALES DEDE assays have been reported to have lower sensitivities than GONZALES IFA for systemic autoimmune rheumatic diseases (SARD). Negative results do not necessarily rule out SARD. Performed By: [facility] [address] [place] [address] Rn Acls: Kiarra Fowler MD Blood BLOOD SPECIMEN / Unknown Lab Venipuncture / Unknown 08/02/2021 10:18 AM BELT FIXER 08/02/2021 11:25 AM BELT FIXER Estee Peck MD LAB - CHEMISTRY ALEENA HERNANDEZ Performing Organization Address [facility]/ZIP Co de Phone Number [facility]) [address] [place] [address], [facility] * HLA TYPING B27 (08/02/2021 10:18 AM BELT FIXER) Pathologist [facility] HLA-B27 Negative Negative 08/04/2021 5:25 PM BELT FIXER [facility] Comment: INTERPRETIVE INFORMATION: HLA-B27 HLA-B27 is a serologically defined allele of the human HLA-B locus. The presence of the HLA-B27 antigen is strongly associated with ankylosing spondylitis and related disorders. This test was developed and its performance characteristics determined by [facility]. It has not been cleared or approved by the [place] Food and Drug Administration. This test was performed in a CLIA certified laboratory and is intended for clinical purposes. Performed by [facility], [address] [place] [address] [email or web address], Kiarra Fowler MD, Lab. Director Blood BLOOD SPECIMEN / Unknown Lab Venipuncture / Unknown 08/02/2021 10:18 AM BELT FIXER 08/02/2021 11:25 AM BELT FIXER Estee Peck MD LAB - CHEMISTRY ALEENA HERNANDEZ [facility]) [address] * (ABNORMAL) C-REACTIVE PROTEIN (08/02/2021 10:18 AM BELT FIXER) Pathologist [facility] C-Reactive Protein 0.7(H) <=0.5 mg/dL 08/02/2021 11:57 AM BELT FIXER [facility] Blood BLOOD SPECIMEN / Unknown Lab Venipuncture / Unknown 08/02/2021 10:18 AM BELT FIXER 08/02/2021 11:25 AM BELT FIXER Estee Peck MD LAB - CHEMISTRY ALEENA HERNANDEZ [address] [address], [facility] [phone] * ERYTHROCYTE SEDIMENTATION RATE (08/02/2021 10:18 AM BELT FIXER) Pathologist [facility] Erythrocyte Sedimentation Rate Westergren 9 0 - 15 MM/HR 08/02/2021 11:46 AM BELT FIXER [facility] Blood BLOOD SPECIMEN / Unknown Lab Venipuncture / Unknown 08/02/2021 10:18 AM BELT FIXER 08/02/2021 11:28 AM BELT FIXER Estee Peck MD LAB - HEMATOLOGY ORD ERABLES [facility] [address] [place] [phone], [facility] [phone] * QUANTIFERON-TB GOLD PLUS 4-TUBE (08/02/2021 10:18 AM BELT FIXER) QuantiFERON NIL 0.02 IU/mL 12:03 AM BELT FIXER [facility] ([facility]) Comment: Performed By: [facility] [address] [place] [id number] Rn Acls: Kiarra Fowler MD QuantiFERON TB Gold Plus Negative Negative 08/05/2021 12:03 AM BELT FIXER [facility] ([facility]) Comment: Interpretive Data: Quantiferon TB Gold Plus [...] Mycobacterium tuberculosis Infection --- [place], 2010 (http://www.cdc.gov/mmwr/preview/mmwrhtml/bg7512w4.htm), for more information concerning test performance in low-prevalence populations and use in occupational screening. QuantiFERON Plus TB1 Minus NIL 0.00 0.00 - 0.34 IU/mL 08/05/2021 12:03 AM BELT FIXER [facility] ([facility]) QuantiFERON Plus TB2 Minus NIL 0.00 0.00 - 0.34 IU/mL 08/05/2021 12:03 AM BELT FIXER [facility] ([facility]) QuantiFERON Mitogen Minus NIL >10.00 IU/mL 08/05/2021 12:03 AM BELT FIXER [facility] ([facility]) Blood BLOOD SPECIMEN / Unknown Lab Venipuncture / Unknown 08/02/2021 10:18 AM BELT FIXER 08/02/2021 11:52 AM BELT FIXER Estee Peck MD LAB - CHEMISTRY ORDE MARY [facility]) [address] * XR CHEST 2VW (08/02/2021 10:00 AM BELT FIXER) Anatomical Region Laterality Modality Chest Radiographic Yoly ging 08/02/2021 10:0 3 AM BELT FIXER Impressions 08/02/2021 5:18 PM BELT FIXER FINDINGS/IMPRESSION: There is asymmetric elevation of the right hemidiaphragm. There is no focal consolidation, pleural effusion, or pneumothorax. The cardiomediastinal silhouette is normal. The visible bony thorax is intact. Report drafted by Efrain Barnes M.D. (resident) I, Dr. MYRA MURILLO have personally reviewed and interpreted this examination/study. This report was electronically signed by MYRA MURILLO ??on 08/02/2021 5:18 PM . Narrative 08/02/2021 5:18 PM BELT FIXER EXAMINATION: XR CHEST 2VW HISTORY: L40.9: Psoriasis [...] LEFT 3VW OR MORE (08/02/2021 10:00 AM BELT FIXER) Anatomical Region Laterality Modality Wrist / Hand Radiographic Yoly ging 08/02/2021 10:0 5 AM BELT FIXER Impressions 08/02/2021 10:41 AM BELT FIXER IMPRESSION: No evidence of bony erosions or degenerative changes. Dictated by Paulo Barragan D.O. (Assessment Consultant) Dr. EDISON Pascual MD have personally reviewed and interpreted this examination/study. This report was electronically signed by EDISON FELIX MD ??on 08/02/2021 10:41 AM . Narrative 08/02/2021 10:41 AM BELT FIXER EXAMINATION: XR SHOULDER LEFT 2VW OR MORE, [...] degenerative changes. Dictated by Paulo Barragan D.O. (Assessment Consultant) Dr. EDISON Pascual MD have personally reviewed and interpreted this examination/study. This report was electronically signed by EDISON FELIX MD on08/02/2021 10:41 AM . Estee Peck MD DIAGNOSTIC IMAGING O RDERABLES * XR WRIST RIGHT 3VW OR MORE (08/02/2021 10:00 AM BELT FIXER) Anatomical Region Laterality Modality Wrist / Hand Radiographic Yoly ging 08/02/2021 10:0 2 AM BELT FIXER Impressions 08/02/2021 10:40 AM BELT FIXER IMPRESSION: No evidence of bony erosions or degenerative changes. Dictated by Paulo Barragan D.O. (Assessment Consultant) Dr. EDISON Pascual MD have personally reviewed and interpreted this examination/study. This report was electronically signed by EDISON FELIX MD ??on 08/02/2021 10:40 AM . Narrative 08/02/2021 10:40 AM BELT FIXER EXAMINATION: XR SHOULDER RIGHT 2VW OR MORE, [...] degenerative changes. Dictated by Paulo Barragan D.O. (Assessment Consultant) Dr. EDISON Pascual MD have personally reviewed and interpreted this examination/study. This report was electronically signed by EDISON FELIX MD on08/02/2021 10:40 AM . Estee Peck MD DIAGNOSTIC IMAGING O RDERABLES * XR SI JOINTS 3VW OR MORE (08/02/2021 10:00 AM BELT FIXER) Anatomical Region Laterality Modality Pelvis, Lower Extremity Radiogra [facility] 08/02/2021 10:5 8 AM BELT FIXER Impressions 08/02/2021 11:48 AM BELT FIXER IMPRESSION: No acute fracture identified. Dictated by Paulo Barragan MD (residential sales manager). Dr. EDISON Pascual MD have personally reviewed and interpreted this examination/study. This report was electronically signed by EDISON FELIX MD ??on 08/02/2021 11:48 AM . Narrative 08/02/2021 11:48 AM BELT FIXER EXAMINATION: XR SI JOINTS 3VW OR MORE [...] fracture identified. Dictated by Paulo Barragan MD (residential sales manager). Dr. EDISON Pascual MD have personally reviewed and interpreted this examination/study. This report was electronically signed by EDISON FELIX MD on08/02/2021 11:48 AM . Estee Pekc MD DIAGNOSTIC IMAGING O RDERABLES * XR SHOULDER LEFT 2VW OR MORE (08/02/2021 10:00 AM BELT FIXER) Anatomical Region Laterality Modality Upper Extremity Radiographic Yoly ging 08/02/2021 10:0 5 AM BELT FIXER Impressions 08/02/2021 10:41 AM BELT FIXER IMPRESSION: No evidence of bony erosions or degenerative changes. Dictated by Paulo Barragan D.O. (Assessment Consultant) Dr. EDISON Pascual MD have personally reviewed and interpreted this examination/study. This report was electronically signed by EDISON FELIX MD ??on 08/02/2021 10:41 AM . Narrative 08/02/2021 10:41 AM BELT FIXER EXAMINATION: XR SHOULDER LEFT 2VW OR MORE, [...] degenerative changes. Dictated by Paulo Barragan D.O. (Assessment Consultant) Dr. EDISON Pascual MD have personally reviewed and interpreted this examination/study. This report was electronically signed by EDISON FELIX MD on08/02/2021 10:41 AM . Estee Peck MD DIAGNOSTIC IMAGING O RDERABLES * XR SHOULDER RIGHT 2VW OR MORE (08/02/2021 10:00 AM BELT FIXER) Anatomical Region Laterality Modality Upper Extremity Radiographic Yoly ging 08/02/2021 10:0 2 AM BELT FIXER Impressions 08/02/2021 10:40 AM BELT FIXER IMPRESSION: No evidence of bony erosions or degenerative changes. Dictated by Paulo Barragan D.O. (Assessment Consultant) Dr. EDISON Pascual MD have personally reviewed and interpreted this examination/study. This report was electronically signed by EDISON FELIX MD ??on 08/02/2021 10:40 AM . Narrative 08/02/2021 10:40 AM BELT FIXER EXAMINATION: XR SHOULDER RIGHT 2VW OR MORE, [...] degenerative changes. Dictated by Paulo Barragan D.O. (Assessment Consultant) IDr. EDISON MD have personally reviewed and interpreted this examination/study. This report was electronically signed by EDISON FELIX MD on08/02/2021 10:40 AM . Estee Peck MD DIAGNOSTIC IMAGING O RDERABLES * XR KNEE RIGHT 3VW (08/02/2021 10:00 AM BELT FIXER) Anatomical Region Laterality Modality Lower Extremity Radiographic Yoly ging 08/02/2021 10:1 2 AM BELT FIXER Impressions 08/02/2021 10:42 AM BELT FIXER IMPRESSION: No evidence of bony erosions or significant degenerative changes. Dictated by Paulo Barragan D.O. (Assessment Consultant) Dr. EDISON Pascual MD have personally reviewed and interpreted this examination/study. This report was electronically signed by EDISON FELIX MD ??on 08/02/2021 10:42 AM . Narrative 08/02/2021 10:42 AM BELT FIXER EXAMINATION: XR KNEE RIGHT 3VW, XR FOOT [...] degenerative changes. Dictated by Paulo Barragan D.O. (Assessment Consultant) Dr. EDISON Pascual MD have personally reviewed and interpreted this examination/study. This report was electronically signed by EDISON FELIX MD on08/02/2021 10:42 AM . Estee Peck MD DIAGNOSTIC IMAGING O RDERABLES * XR KNEE LEFT 3VW (08/02/2021 10:00 AM BELT FIXER) Anatomical Region Laterality Modality Lower Extremity Radiographic Yoly ging 08/02/2021 10:0 8 AM BELT FIXER Impressions 08/02/2021 10:43 AM BELT FIXER IMPRESSION: No evidence of bony erosions or significant degenerative changes. Dictated by Paulo Barragan D.O. (Assessment Consultant) Dr. EDISON Pascual MD have personally reviewed and interpreted this examination/study. This report was electronically signed by EDISON FELIX MD ??on 08/02/2021 10:43 AM . Narrative 08/02/2021 10:43 AM BELT FIXER EXAMINATION: XR KNEE LEFT 3VW, XR FOOT [...] degenerative changes. Dictated by Paulo Barragan D.O. (Assessment Consultant) Dr. EDISON Pascual MD have personally reviewed and interpreted this examination/study. This report was electronically signed by EDISON FELIX MD on08/02/2021 10:43 AM . Estee Peck MD DIAGNOSTIC IMAGING O RDERABLES * XR FOOT LEFT 3VW OR MORE (08/02/2021 10:00 AM BELT FIXER) Anatomical Region Laterality Modality Ankle / Foot Radiographic Yoly ging 08/02/2021 10:0 8 AM BELT FIXER Impressions 08/02/2021 10:43 AM BELT FIXER IMPRESSION: No evidence of bony erosions or significant degenerative changes. Dictated by Paulo Barragan D.O. (Assessment Consultant) Dr. EDISON Pascual MD have personally reviewed and interpreted this examination/study. This report was electronically signed by EDISON FELIX MD ??on 08/02/2021 10:43 AM . Narrative 08/02/2021 10:43 AM BELT FIXER EXAMINATION: XR KNEE LEFT 3VW, XR FOOT [...] degenerative changes. Dictated by Paulo Barragan D.O. (Assessment Consultant) Dr. EDISON Pascual MD have personally reviewed and interpreted this examination/study. This report was electronically signed by EDISON FELIX MD on08/02/2021 10:43 AM . Estee Peck MD DIAGNOSTIC IMAGING O RDERABLES * XR FOOT RIGHT 3VW OR MORE (08/02/2021 10:00 AM BELT FIXER) Anatomical Region Laterality Modality Ankle / Foot Radiographic Yoly ging 08/02/2021 10:1 2 AM BELT FIXER Impressions 08/02/2021 10:42 AM BELT FIXER IMPRESSION: No evidence of bony erosions or significant degenerative changes. Dictated by Paulo Barragan D.O. (Assessment Consultant) Dr. EDISON Pascual MD have personally reviewed and interpreted this examination/study. This report was electronically signed by EDISON FELIX MD ??on 08/02/2021 10:42 AM . Narrative 08/02/2021 10:42 AM BELT FIXER EXAMINATION: XR KNEE RIGHT 3VW, XR FOOT [...] degenerative changes. Dictated by Paulo Barragan D.O. (Assessment Consultant) Dr. EDISON Pascual MD have personally reviewed and interpreted this examination/study. This report was electronically signed by EDISON FELIX MD on08/02/2021 10:42 AM . Estee Peck MD DIAGNOSTIC IMAGING O RDERABLES * XR HAND LEFT 3VW OR MORE (08/02/2021 10:00 AM BELT FIXER) Anatomical Region Laterality Modality Wrist / Hand Radiographic Yoly ging 08/02/2021 10:0 5 AM BELT FIXER Impressions 08/02/2021 10:41 AM BELT FIXER IMPRESSION: No evidence of bony erosions or degenerative changes. Dictated by Paulo Barragan D.O. (Assessment Consultant) I, Dr. EDISON FELIX MD have personally reviewed and interpreted this examination/study. This report was electronically signed by EDISON FELIX MD ??on 08/02/2021 10:41 AM . Narrative 08/02/2021 10:41 AM BELT FIXER EXAMINATION: XR SHOULDER LEFT 2VW OR MORE, [...] degenerative changes. Dictated by Paulo Barragan D.O. (Assessment Consultant) Dr. EDISON Pascual MD have personally reviewed and interpreted this examination/study. This report was electronically signed by EDISON FELIX MD on08/02/2021 10:41 AM . Estee Peck MD DIAGNOSTIC IMAGING O RDERABLES * XR HAND RIGHT 3VW OR MORE (08/02/2021 10:00 AM BELT FIXER) Anatomical Region Laterality Modality Wrist / Hand Radiographic Yoly ging 08/02/2021 10:0 2 AM BELT FIXER Impressions 08/02/2021 10:40 AM BELT FIXER IMPRESSION: No evidence of bony erosions or degenerative changes. Dictated by Paulo Barragan D.O. (Assessment Consultant) Dr. EDISON Pascual MD have personally reviewed and interpreted this examination/study. This report was electronically signed by EDISON FELIX MD ??on 08/02/2021 10:40 AM . Narrative 08/02/2021 10:40 AM BELT FIXER EXAMINATION: XR SHOULDER RIGHT 2VW OR MORE, [...] degenerative changes. Dictated by Paulo Barragan D.O. (Assessment Consultant) I, Dr. EDISON FELIX MD have personally reviewed and interpreted this examination/study. This report was electronically signed by EDISON FELIX MD on08/02/2021 10:40 AM . Estee Peck MD DIAGNOSTIC IMAGING O RDERABLES documented in this encounter Visit Diagnoses Diagnosis Psoriasis- Primary Other psoriasis Pain of both shoulder joints Arthralgia, unspecified joint Psoriasis Other psoriasis Arthralgia, unspecified joint documented in this encounter
--- OUTSIDE RECORDS SUMMARY | 2024-07-15 18:38 | XMS_ITS | Encounter Summary ---
Author Organization [facility] Address [address] [place] [address] Care Team Providers Care Marine Engineering Consultant Name Role Phone Christa Velez APRN-BRAZING FURNACE OPERATOR Unavailable [phone] Encounter Details Date Type Department Care Team (Late Contact Info) Description 10/27/2021 Orders Only [facility] [address] [place] [address] Kirk Sue MD [address] [place], [place] [id number] High risk medications (not anticoagulants) long-term use [...] Office Visit [facility] Rheumatology [address] [place] [address], [place] [phone] Paulino Youngblood MD [address] [place] [address] [place] [phone] 11/30/2024 3:00 PM CDT Office Visit [facility] - ENT [address] [place] [phone] Froilan Monae MD [address] [place] [address] DEPT [place] [address] 02/15/2025 10:00 AM CDT Office Visit [facility] - Internal Med [address] [place] [phone] Richard Chacon III, MD [address] [place] [address] [place] [phone] documented as of this encounter Visit Diagnoses Diagnosis High risk medications (not anticoagulants) long-term use Encounter for long-term (current) use of other medications documented in this encounter Care Teams Marine Engineering Consultant Relationship Specialty Start Date End Date Christa Velez APRN-JESSICA [address] [place] [phone] Psychiatrist Nurse Practitioner 08/07/21 documented as of this encounter
--- OUTSIDE RECORDS SUMMARY | 2024-07-15 18:38 | XMS_ITS | Encounter Summary ---
Author Organization [facility] Address [address] [place] [address] Care Team Providers Care Door Cutter Name Role Phone Christa Velez APRN-WOUND/OSTOMY NURSE Unavailable [phone] Encounter Details Date Type Department Care Team (Late Contact Info) Description 11/17/2021 Orders Only [facility] [address] [place] [address] Kirk Sue MD [address] [place], [place] [id number] High risk medications (not anticoagulants) long-term use [...] Office Visit [facility]ology [address] [place] [address], [place] [phone] Paulino Youngblood MD [address] [place] [address] [place] [phone] 11/30/2024 3:00 PM CDT Office Visit [facility] - ENT [address] [place] [phone] Froilan Monae MD [address] [place] [address] DEPT [place] [address] 02/15/2025 10:00 AM CDT Office Visit [facility] - Internal Med [address] [place] [phone] Richard Chacon III, MD [address] [place] [address] [place] [phone] documented as of this encounter Visit Diagnoses Diagnosis High risk medications (not anticoagulants) long-term use Encounter for long-term (current) use of other medications documented in this encounter Care Teams Door Cutter Relationship Specialty Start Date End Date Christa Velez APRN-JESSICA [address] [place] [phone] Psychiatrist Nurse Practitioner 08/07/21 documented as of this encounter
--- OUTSIDE RECORDS SUMMARY | 2024-07-15 18:38 | XMS_ITS | Encounter Summary ---
Author Organization [facility] Address [address] [facility] [address] [facility] [place] [address] Care Team Providers Care Crm Marketing Specialist Name Role Phone Christa Velez APRN-INSTRUMENT SPECIALIST Unavailable [phone] Oswaldo BOSCH MD, Richard Sanchez Primary Care Provider [phone] Morgan Randhawa MD Unavailable Pineda Randhawa MD Unavailable Will Naqvi MD Unavailable [phone] Encounter Details Date Type Department Care Team (Latest Contact Info) Description 12/26/2022 Travel Social History Tobacco Use Types Packs/Day [...] PM CDT documented as of this encounter Plan of Treatment Upcoming Encounters Date Type Department Care Team (Late Contact Info) Description 10/21/2024 1:30 PM CDT Office Visit [facility] Rhe[facility]ology [address] [place] [phone] Paulino Youngblood MD [address] [place] [address] [place] [phone] 11/30/2024 3:00 PM CDT Office Visit [facility] - ENT [address] [place] [phone] Froilan Monae MD [address] [place] [address] [place] [address] 02/15/2025 10:00 AM CDT Office Visit [facility] - Internal Med [address] [place] [phone] Richard Chacon III, MD [address] [place] [address] [address] [place] [phone] documented as of this encounter Visit Diagnoses Not on filedocumented in this encounter Care Teams Crm Marketing Specialist Relationship Specialty Start Date End Date Richard Chacon III, MD [address] [place] [address] [address] [place] [phone] PCP - General Internal Medicine 01/29/22 Christa Velez APRN-INSTRUMENT SPECIALIST [address] [place] [phone] Psychiatrist Nurse Practitioner 08/07/21 Morgan Randhawa MD [address] [place] [address] [place] [phone] Resident - PCP Internal Medicine 01/29/22 Pineda Randhawa MD [address] [place] [address] [place] [phone] Resident Rheumatology 12/24/22 Will Naqvi MD [address] [place] [address] Mixing Engineer Rheumatology 12/24/22 documented as of this encounter
--- OUTSIDE RECORDS SUMMARY | 2024-07-15 18:38 | XMS_ITS | Encounter Summary ---
Author Organization [facility] Address [address] [facility] [place] [address] Care Team Providers Care Real Estate Agency Principal Name Role Phone Christa Velez APRN-FRONT DESK AGENT Unavailable [phone] Encounter Details Date Type Department Care Team (Late Contact Info) Description 12/01/2021 Orders Only [facility] [address] [place] [address] Kirk Sue MD [address] [place], [place] [phone] High risk medications (not anticoagulants) long-term use [...] Office Visit [facility] Rheumatology [address] [place] [address], [place] [phone] Paulino Youngblood MD [address] [place] [address] [place] [phone] 11/30/2024 3:00 PM CDT Office Visit [facility] - ENT [address] [place] [address], [place] [phone] Froilan Monae MD [address] [place] [address] 2L [place] [address] 02/15/2025 10:00 AM CDT Office Visit [facility] - Internal Med [address] [place] [phone] Richard Chacon III, MD [address] [place] [address] [address] [place] [phone] documented as of this encounter Procedures Procedure Name Priority Date/Time Associated Diagnosis Comments CBC W AUTO DIFFERENTIAL Routine 12/06/2021 1:39 PM CDT High risk medications (not anticoagulants) long-term use COMPREHENSIVE METABOLIC PANEL Routine 12/06/2021 1:39 PM CDT High risk medications (not anticoagulants) long-term use documented in this encounter Results * COMPREHENSIVE METABOLIC PANEL (12/06/2021 1:39 PM CDT) Glucose 92 65 - 99 mg/dL [facility] Comment: ? Fasting reference interval BUN 13 7 - 25 mg/dL [facility] Creatinine 0.97 0.60 - 1.35 mg/dL [facility] eGFR by MDRD 109 > OR = 60 mL/min/1. 73m2 [facility] eGFR by MDRD 126 > OR = 60 mL/min/1. 73m2 [facility] BUN/Creatinine Ratio NOT APPLICABLE 6 - 22 (calc) [facility] Sodium 140 135 - 146 mmol/L [facility] Potassium 4.4 3.5 - 5.3 mmol/L [facility] Chloride 106 98 - 110 mmol/L [facility] CO2 25 20 - 32 mmol/L [facility] Calcium 9.5 8.6 - 10.3 mg/dL [facility] Protein Total 6.7 6.1 - 8.1 g/dL [facility] Albumin 4.4 3.6 - 5.1 g/dL [facility] Globulin Total 2.3 1.9 - 3.7 g/dL (calc) [facility] Albumin/Globuli n Ratio 1.9 1.0 - 2.5 (calc) [facility] Bilirubin Total 0.4 0.2 - 1.2 mg/dL [facility] Alkaline Phosphatase 110 36 - 130 U/L [facility] AST 19 10 - 40 U/L [facility] ALT 44 9 - 46 U/L [facility] Comment: Test Performed at: [facility] [place], [place] ??[id number] SIRIA AGUILAR DO,MPH Blood BLOOD SPECIMEN / Unknown 12/06/2021 1:39 PM CDT 12/06/2021 1:41 PM CDT Estee Peck MD LAB - CHEMISTRY ORDE [facility] Organization Address City/State/[facility] Co de Phone Number [facility] [phone] [place] [address] * CBC WITH DIFFERENTIAL (12/06/2021 1:39 PM CDT) White Blood Cell Count 7.0 3.8 - 10.8 Thousand/u L [facility] RBC 4.72 4.20 - 5.80 Million/uL [facility] Hemoglobin 13.5 13.2 - 17.1 g/dL [facility] Hematocrit 41.8 38.5 - 50.0 % [facility] MCV 88.6 80.0 - 100.0 fL [facility] MCH 28.6 27.0 - 33.0 pg [facility] MCHC 32.3 32.0 - 36.0 g/dL [facility] RDW 13.1 11.0 - 15.0 % [facility] Platelet Count 233 140 - 400 Thousand/u L [facility] MPV 9.9 7.5 - 12.5 fL [facility] Neutrophil Absolute 4655 1500 - 7800 cells/uL [facility] Lymphocytes Absolute 1792 850 - 3900 cells/uL [facility] Absolute Monocytes 392 200 - 950 cells/uL [facility] Eosinophils Absolute 112 15 - 500 cells/uL [facility] Basophils Absolute 49 0 - 200 cells/uL [facility] Granulocytes % 66.5 % [facility] Lymphocytes % 25.6 % [facility] Monocytes % 5.6 % [facility] Eosinophils % 1.6 % [facility] Basophils % 0.7 % [facility] Comment: Test Performed at: [facility] [id number] [place], [place] ??[phone] SIRIA AGUILAR DO,MPH Blood BLOOD SPECIMEN / Unknown 12/06/2021 1:39 PM CDT 12/06/2021 1:41 PM CDT Estee Peck MD LAB - HEMATOLOGY ORD ERABLES [facility] [address] [place] [address] documented in this encounter Visit Diagnoses Diagnosis High risk medications (not anticoagulants) long-term use Encounter for long-term (current) use of other medications documented in this encounter Care Teams Real Estate Agency Principal Relationship Specialty Start Date End Date Christa Velez APRN-FRONT DESK AGENT [address] [place] [phone] Psychiatrist Nurse Practitioner 08/07/21 documented as of this encounter
--- OUTSIDE RECORDS SUMMARY | 2024-07-15 18:38 | XMS_ITS | Encounter Summary ---
Author Organization [facility] Address [address] [facility] [place] [address] Care Team Providers Care Musical Engineer Name Role Phone AyakacharlotteChrista APRN-PSYCHIATRIC SOCIAL WORKER Unavailable [phone] Reason for Visit * Reason Comments Psoriasis Encounter Details Date Type Department Care Team (Late st Contact Info) Description 09/06/2021 9:00 AM CDT Office Visit [facility] [address] [facility], [facility] [place] [phone] Vivian Tello MD No info available Psoriatic arthritis (HCC) (Primary Dx); Therapeutic drug monitoring Social History Tobacco Use Types Packs/Day Years [...] Sign Reading Time Taken Comments Blood Pressure 122/80 09/06/2021 9:36 AM CDT Pulse - - Temperature 36.8 ??C (98.2 ??F) 09/06/2021 9:36 AM CD T Respiratory Rate - - Oxygen Saturation - - Inhaled Oxygen Concentration - - Weight 110.2 kg (243 lb) 09/06/2021 9:36 AM CDT Height 172.7 cm (5' 8 ) 09/06/2021 9:36 AM CDT Body Mass Index 36.95 09/06/2021 9:36 AM CDT documented in this encounter Patient Instructions * Patient Instructions* Vivian Tello MD - 09/06/2021 9:52 AM CDT Continue naproxen 500 mg twice a day Increase methotrexate to 8 pills a week. Continue folic acid 1 mg daily. Will prescribe Cosentyx injection under the skin. Take 150 mg injection once a week for 5 weeks, then once every 4 weeks. If you need help with starting it, contact our clinic and schedule nurses visit ([phone]). Let us know of any side effects. Please get labs when you come for dermatology appointment. Follow up in [address] Tello and Dr. Farmer (Saturday) If you need to change or cancel your Rheumatology appointment - At the [facility] ([facility]) at [address] [facility], call [phone]. If you need a refill request, have your pharmacy fax a request to [phone]. If you need to leave a message for Dr. Tello, you can send her an electronic message via [employer] voicemail at [phone]. Her office FAX number is [phone]. For after hours emergency only, you can call the [facility] core layer machine operator at [phone] and ask for the Referral Nurse electrician telephone to be paged. Patient Education Secukinumab (By injection) Secukinumab (jet-wh-SHQ-ue-mab) Treats plaque psoriasis, psoriatic arthritis, ankylosing spondylitis, and non- radiographic axial spondyloarthritis. Brand Name(s): Cosentyx There may be other brand names for this medicine. When This Medicine Should Not Be Used: This medicine is not right for everyone. Do not use it if you had an allergic reaction to secukinumab. How to Use This Medicine: Injectable ?? Your doctor will prescribe your exact dose and tell you how often it should be given. This medicine is given as a shot under your skin. This medicine is usually given in the upper arms, stomach, or thighs. ?? A nurse or other health provider will give you this medicine. ?? You may be taught how to give your medicine at home. Make sure you understand all instructions before giving yourself an injection. Do not use more medicine or use it more often than your doctor tells you to. ?? Allow the medicine to warm to room temperature for 15 to 30 minutes before you use it. ?? Do not use the medicine if it is cloudy, discolored, or has particles in it. Do not shake the medicine. ?? You will be shown the body areas where this shot can be given. Use a different body area each time you give yourself a shot. Keep track of where you give each shot to make sure you rotate body areas. Do not inject into skin areas that are red, bruised, tender, hard, or affected by psoriasis. ?? Use a new needle and syringe each time you inject your medicine. ?? Throw away used needles in a hard, closed container that the needles cannot poke through. Keep this container away from children and pets. ?? This medicine should come with a Medication Guide. Ask your pharmacist for a copy if you do not have one. ?? Missed dose: Call your doctor or pharmacist for instructions. ?? If you store this medicine at home, keep it in the refrigerator. Do not freeze. Keep the medicine in the original carton until you are ready to use it. Use the medicine within 1 hour after you take it out of the refrigerator. Drugs and Foods to Avoid: Ask your doctor or pharmacist before using any other medicine, including jxzu-nxi-kseyqkw medicines, vitamins, and herbal products. ?? Some medicines can affect how secukinumab works. Tell your doctor about all other medicines you are using. ?? This medicine may interfere with vaccines. Ask your doctor before you get a flu shot or any other vaccines. You should not receive live vaccines while you are using this medicine. Warnings While Using This Medicine: ?? Tell your doctor if you are or , or if you have inflammatory bowel disease(including Crohn disease or ulcerative colitis) or an allergy to latex. ?? This medicine may cause you to get infections more easily (including mouth, skin, or upper respiratory tract infections). Tell your doctor if you have any type of infection before you start treatment. Take precautions to avoid illness. Wash your hands often. ?? This medicine may cause new or worsening inflammatory bowel disease. ?? You will need to have a skin test for tuberculosis (TB) before you start using this medicine. Tell your doctor if you or anyone in your home has ever had a positive TB skin test or has been exposed to TB. ?? Your doctor will do lab tests at regular visits to check on the effects of this medicine. Keep all appointments. ?? Keep all medicine out of the reach of children. Never share your medicine with anyone. Possible Side Effects While Using This Medicine: Call your doctor right away if you notice any of these side effects: ?? Allergic reaction: Itching or hives, swelling in your face or hands, swelling or tingling in your mouth or throat, chest tightness, trouble breathing ?? Burning feeling when you urinate, change in how much or how often you urinate ?? Fever, chills, cough, runny or stuffy nose, sore throat, body aches ?? Severe stomach pain, diarrhea ?? Skin itching or scaling ?? Sores or white patches on your lips, mouth, or throat If you notice these less serious side effects, talk with your doctor: ?? Pain, itching, burning, swelling, or a lump under your skin where the shot was given If you notice other side effects that you think are caused by this medicine, tell your doctor. Call your doctor for medical advice about side effects. You may report side effects to FDA at 4-794-YRY-0900 ?? Copyright [employer] 2020 Information is for End User's use only and may not be sold, redistributed or otherwise used for commercial purposes. The above information is an soil conservation aide only. It is not intended as medical advice for individual conditions or treatments. Talk to your doctor, nurse or pharmacist before following any medical regimen to see if it is safe and effective for you. documented in this encounter Progress Notes * Vivian Tello MD - 09/06/2021 9:01 AM CDT [facility] Rheumatology Followup Clinic Visit Referring Physician: Estee Peck MD [address] [place] [address] [phone] Chief Complaint Patient presents with ??? Psoriasis History of Present Illness: MANOJ SPEAR ( 1995) is a 25 year old male who presents with PMHx of PSO, bipolar to establish care for arthralgia. Last seen in clinic on 08/02/21 as a new patient. At that time, started on naproxen. Since then he has been taking naproxen as scheduled and noticed it has helped with arthritis. Decreased symptoms from daily to 4-5 days/week. Still noticing joint pain in hands and feet, but says swelling and severity has decreased. Still having 1-2 hours AM stiffness in hands. Arthralgias in elbows, shoulders and knees are now under control with naproxen. PSO improvement since being on MTX but still has significant plaque psoriasis. Current meds: MTX 17.5 mg weekly (05/2021 - ) FA 1 mg daily naproxen 500 mg BID Tylenol PRN ASA/caffeine pill PRN - helps Disease Hx: Patient states he has BL shoulder pain, [...] resolves. No clear description of sausage digit. Review of Systems: General: +fatigue, -fever, -wt [...] father and sister; Psoriasis in his father. Dad, paternal uncle has PSA Mother had childhood PSO Maternal aunt with UC and SLE Social History: Social History Socioeconomic History ??? [...] 6 TABLETS BY MOUTH EVERY 7 DAYS 30 tablet 1 ??? naproxen (NAPROSYN) 500 MG tablet Take 1 (one) tablet by mouth 2 times daily 120 tablet 1 ??? olanzapine (ZYPREXA) 10 MG tablet Take 10 mg by mouth once daily. ??? OLANZapine (ZYPREXA) 2.5 MG tablet TAKE 1 TABLET BY MOUTH EVERY DAY IN THE MORNING ??? secukinumab (COSENTYX SENSOREADY PEN) 150 MG/ML auto-injector Inject 300 mg (2mL) subcutaneously at weeks 0, 1, 2, 3, and 4 and every 4 weeks thereafter 12 mL 0 No current facility-administered medications for this visit. Allergies: Allergies Allergen Reactions ??? Food Headache Spaghetti sauce and mozzarella cheese Physical Exam: BP 122/80 Temp 98.2 ??F (36.8 ??C) (Oral) Ht 5' 8 (1.727 m) Wt 243 lb (110.2 kg) BMI 36.95 kg/m2 General: no distress, cooperative Skin: diffuse [...] alert, muscle strength 5/5 Musculoskeletal Exam: Hands: MCPs, wrists SfT1, normal ROM Elbows: S0T0, normal ROM Shoulders: S0T0, normal ROM Knees: S0T0, normal ROM Feet: MTPs SfT1 no dactylitis Lab/Diagnostics: 07/2021 CMP, CBC: WNL ESR 9, CRP 0.7 HLA B27 neg GONZALES neg RF, anti CCP neg Quant TB neg CXR 08/02/21 There is asymmetric elevation of the right hemidiaphragm. There is no focal consolidation, pleural effusion, or pneumothorax. The cardiomediastinal silhouette is normal. The visible bony thorax is intact. BL Knee/Foot/Hand/Wrist/Shoulder/SI XRS No evidence of bony erosions or significant degenerative changes. Assessment & Plan: 1. Psoriatic arthritis 2. Therapeutic drug monitoring MANOJ SPEAR is a 25 year old male with PMHx of psoriasis, possible psoriatic arthritis, presents to follow up. No findings of inflammatory arthritis/PsA damage on XRays and inflammatory markers were normal on labs, however there is still concern for PsA based on exam (MCP, wrist, MTP tenderness /fullness) and response to NSAID. Will increase methotrexate and start process for getting Cosentyxstarted for PSO/PsA as below. - Labs: as below - Continue naproxen 500 mg BID - Increase methotrexate to 20 mg PO weekly - Continue 1 mg FA daily - Start Cosentyx 300 mg (2mL) subcutaneously at weeks 0, 1, 2, 3, and 4 and every 4 weeks thereafter - Follow up with dermatology - Instructed to take photos of any finger/toe swelling if it occurs - RTC in 3-4 mos Patient seen and examined and case discussed with Dr. Darian Tello MD Rheumatology Fellow [facility] Orders Placed This Encounter ??? CBC WITH DIFFERENTIAL ??? COMPREHENSIVE METABOLIC PANEL ??? C-REACTIVE PROTEIN ??? ERYTHROCYTE SEDIMENTATION RATE ??? DISCONTD: secukinumab (COSENTYX SENSOREADY PEN) 150 MG/ML auto-injector ??? secukinumab (COSENTYX SENSOREADY PEN) 150 MG/ML auto-injector Associated attestation - Nadege Farmer MD - 11/05/2021 11:06 AM CDT I have seen and examined the patient, reviewed available medical records, and agree with the findings, assessment, and plan as documented by Dr. Tello. Mr. Spear is a 25 year old male with psoriasis who presents for first follow up of possible psoriatic arthritis. He took naproxen as prescribed after his last visit, and did not improvement in joint pain and stiffness, but not resolution. He stillhas pain in his hands, feet, elbows, and knees. He is also taking methotrexate as prescribed by Derm. He has had improvement in skin lesions as well, but still with many plaques all over his body. Exam: A&O, NAD Speaks minimally Dirt noted on hands and feet and between/under naisl Many psoriatic plaques on extremities Bilateral wrists SfT1, MTPs positive squeeze test, MCPs tender but not swollen A/P: 25 year old male with likely psoriatic arthritis who presents for follow up. Pain and stiffness improved but not resolved with addition of naproxen to MTX, he still has some fullness in wrists, and several areas of tenderness, in addition to very active skin disease. Will increase MTX to 20 mg weekly, start cosentyx. Needs to continue to follow with Derm for skin lesions. Monitoring labs every 8 weeks on MTX. Nadege Farmer MD Adult and Pediatric Rheumatology documented in this encounter Plan of Treatment Upcoming Encounters Date Type Department Care Team (Late st Contact Info) Description 10/21/2024 1:30 PM CDT Office Visit [facility] - Rheumatology [address] [place] [phone] Paulino Youngblood MD [address] [place] [address] [place] [phone] 11/30/2024 3:00 PM CDT Office Visit [facility] - ENT [address] [place] [phone] Froilan Monae MD [address] [place] [address] [place] [address] 02/15/2025 10:00 AM CDT Office Visit [facility] - Internal Med [address] [place] [address], [place] [address] Richard Chacon III, MD [address] [facility] 2L [place] [phone] documented as of this encounter Visit Diagnoses Diagnosis Psoriatic arthritis (HCC)- Primary Psoriatic arthropathy Therapeutic drug monitoring Encounter for therapeutic drug monitoring documented in this encounter Care Teams Musical Engineer Relationship Specialty Start Date End Date Christa Velez APRN-PSYCHIATRIC SOCIAL WORKER [address] [place] [address] Psychiatrist Nurse Practitioner 08/07/21 documented as of this encounter
--- OUTSIDE RECORDS SUMMARY | 2024-07-15 18:38 | XMS_ITS | Encounter Summary ---
Author Organization [facility] Address [address] [facility] [place] [address] Care Team Providers Care Green Promotions Specialist Name Role Phone Christa Velez HARVEY-END USER SUPPORT SPECIALIST Unavailable [phone] Oswaldo BOSCH MD, Richard Sanchez Primary Care Provider [phone] Morgan Randhawa MD Unavailable Pineda Randhawa MD Unavailable Will Naqvi MD Unavailable [phone] Pineda Randhawa MD Unavailable Estee Peck MD Unavailable [phone] Encounter Details Date Type Department Care Team (Latest Contact Info) Description 02/04/2023 Travel Social History Tobacco Use Types Packs/Day [...] Office Visit [facility] - Rheumatology [address] [place] [address] [place] [phone] Paulino Youngblood MD [address] [place] [address] [place] [phone] 11/30/2024 3:00 PM CDT Office Visit [facility] - ENT [address] [place] [phone] Froilan Monae MD [address] [place] [address] 2L [place] [address] 02/15/2025 10:00 AM CDT Office Visit [facility] - Internal Med [address] [place] [phone] Richard Chacon III, MD [address] [place] [address] 2L [place] [address] documented as of this encounter Visit Diagnoses Not on filedocumented in this encounter Care Teams Green Promotions Specialist Relationship Specialty Start Date End Date Richard Chacon III, MD [address] [place] [address] 2L [place] [address] PCP - General Internal Medicine 01/29/22 Christa Velez APRN-END USER SUPPORT SPECIALIST [address] [phone] Psychiatrist Nurse Practitioner 08/07/21 Morgan Randhawa MD [address] [place] [address] [place] [phone] Resident - PCP Internal Medicine 01/29/22 Pineda Randhawa MD [address] [place] [address] [place] [phone] Resident Rheumatology 12/24/22 Will Naqvi MD [address] [facility] [address] [place] [address] Stars Analytical Lead Rheumatology 12/24/22 Pineda Randhawa MD [address] [place] [phone] Resident Rheumatology 02/04/23 Estee Peck MD [address] [facility] [address] [place] [address] Dermatology 02/04/23 documented as of this encounter
--- OUTSIDE RECORDS SUMMARY | 2024-07-15 18:38 | XMS_ITS | Encounter Summary ---
Author Organization [facility] Address [address] [facility] [place] [address] Care Team Providers Care Tandem Mill Roller Name Role Phone Christa Velez APRN-PERSONAL CARE ASSISTANT Unavailable [phone] Encounter Details Date Type Department Care Team (Late Contact Info) Description 11/03/2021 Orders Only [facility] [address] [place] [address] Kirk Sue MD [address] [place], [place] [phone] High risk medications (not anticoagulants) long-term use [...] Office Visit [facility] - Rheumatology [address] [place] [address], [place] [phone] Paulino Youngblood MD [address] [place] [address] [place] [phone] 11/30/2024 3:00 PM CDT Office Visit [facility] - ENT [address] [place] [phone] Froilan Monae MD [address] [place] [address] [place] [address] 02/15/2025 10:00 AM CDT Office Visit [facility] - Internal Med [address] [place] [phone] Richard Chacon III, MD [address] [place] [address] [place] [phone] documented as of this encounter Visit Diagnoses Diagnosis High risk medications (not anticoagulants) long-term use Encounter for long-term (current) use of other medications documented in this encounter Care Teams Tandem Mill Roller Relationship Specialty Start Date End Date Christa Velez APRN-JESSICA [address] [place] [address] Psychiatrist Nurse Practitioner 08/07/21 documented as of this encounter
--- OUTSIDE RECORDS SUMMARY | 2024-07-15 18:38 | XMS_ITS | Encounter Summary ---
Author Organization [facility] Address [address] [facility] [place] [address] Care Team Providers Care Bundle Packer Name Role Phone Ayakacharlotte Christa [facility] Unavailable [phone] Reason for Visit * Reason Comments Refill Request Encounter Details Date Type Department Care Team (Late st Contact Info) Description 09/25/2021 Refill [facility] [address] [place] [address], [place] [phone] Estee Peck MD [address] [place] [address] 3 [place] [address] Refill Request Social History Tobacco Use Types [...] encounter Miscellaneous Notes * Telephone Encounter - Adriana Castro - 09/25/2021 8:41 AM CDT UVALDO 04/17/21 NOV 10/16/21 OK to refill? clob oint Will refill 1#60 with 1 rf. Adriana Castro SPECIAL EQUIPMENT TECHNICIAN documented in this encounter Plan of Treatment Upcoming Encounters Date Type Department Care Team (Late st Contact Info) Description 10/21/2024 1:30 PM CDT Office Visit [facility] - Rheumatology [address] [place] [phone] Paulino Youngblood MD [address] [place] [address] [place] [phone] 11/30/2024 3:00 PM CDT [facility] [address] [place] [phone] Froilan Monae MD [address] [place] [address] [place] [address] 02/15/2025 10:00 AM CDT [facility] [address] [place] [phone] Richard Chacon III, MD [address] [place] [address] 2L [place] [phone] documented as of this encounter Visit Diagnoses Diagnosis Other psoriasis documented in this encounter Care Teams Bundle Packer Relationship Specialty Start Date End Date Christa Velez APRN-ENTRY LEVEL STAFF ACCOUNTANT [address] [place] [address] Psychiatrist Nurse Practitioner 08/07/21 documented as of this encounter
--- OUTSIDE RECORDS SUMMARY | 2024-07-15 18:38 | XMS_ITS | Encounter Summary ---
Author Organization [facility] Address [address] [facility] [address] Care Team Providers Care Vp Account Director Name Role Phone Christa Velez APRN-AGRICULTURE ENGINEER Unavailable Encounter Details Date Type Department Care Team (Late Contact Info) Description 11/10/2021 Orders Only [facility] [address] [place] [address] Kirk Sue MD [address] [place], [place] [phone] High risk medications (not anticoagulants) long-term use [...] Visit [facility] - Rheumatology [address] [place] [address], [place] [phone] Paulino Youngblood MD [address] [place] [address] [place] [phone] 11/30/2024 3:00 PM CDT Office Visit [facility] - ENT [address] [place] [phone] Froilan Monae MD [address] [place] [address] DEPT [place] [address] 02/15/2025 10:00 AM CDT Office Visit [facility] - Internal Med [address] [place] [phone] Richard Chacon III, MD [address] [place] [address] [place] [phone] documented as of this encounter Visit Diagnoses Diagnosis High risk medications (not anticoagulants) long-term use Encounter for long-term (current) use of other medications documented in this encounter Care Teams Vp Account Director Relationship Specialty Start Date End Date Christa Velez APRN-JESSICA [address] [place] [address] Psychiatrist Nurse Practitioner 08/07/21 documented as of this encounter
--- OUTSIDE RECORDS SUMMARY | 2024-07-15 18:38 | XMS_ITS | Encounter Summary ---
Author Organization [facility] Health Address [address] [place] [address] Care Team Providers Care Drupal Php Developer Name Role Phone Christa Velez APRN-WATER TREATMENT PLANT OPERATOR Unavailable [phone] Oswaldo BOSCH MD, Richard Sanchez Primary Care Provider [phone] Morgan Randhawa MD Unavailable Reason for Visit * Reason Onset Date Comments MEDICATION REFILL 11/01/2022 Encounter Details Date Type Department Care Team (Late st Contact Info) Description 11/01/2022 Refill [facility] [address] [facility], [facility] [place] [phone] Pineda Randhawa MD [address] [facility] [address] [place] [phone] MEDICATION REFILL Social History Tobacco Use [...] * Telephone Encounter - Ainsley Jane - 11/01/2022 2:37 PM CDT Refill Request Manoj Horner UVALDO:06/06/2022 NOV scheduled: 12/05/2022 LRF: 06/05/2022 Qty Disp: 120 # of refills: 1 Allergies: Allergies Allergen Reactions ??? Food Headache Spaghetti sauce and mozzarella cheese Pended Medication Order: Requested Prescriptions Pending Prescriptions Disp Refills ??? naproxen (Naprosyn) 500 MG tablet 120 tablet 1 Sig: Take 1 (one) tablet by mouth 2 times daily documented in this encounter Plan of Treatment Upcoming Encounters Date Type Department Care Team (Late st Contact Info) Description 10/21/2024 1:30 PM CDT Office Visit [facility] - Rheumatology [address] [place] [phone] Paulino Youngblood MD [address] [place] [address] [place] [phone] 11/30/2024 3:00 PM CDT Office Visit [facility] - ENT [address] [place] [phone] Froilan Monae MD [address] [place] [address] [place] [address] 02/15/2025 10:00 AM CDT Office Visit [facility] - Internal Med [address] [place] [phone] Richard Chacon III, MD [address] [place] [address] [address] [place] [phone] documented as of this encounter Visit Diagnoses Not on filedocumented in this encounter Care Teams Drupal Php Developer Relationship Specialty Start Date End Date Richard Chacon III, MD [address] [place] [address] [address] [place] [phone] PCP - General Internal Medicine 01/29/22 Christa Velez APRN-WATER TREATMENT PLANT OPERATOR [address] [place] [phone] Psychiatrist Nurse Practitioner 08/07/21 Morgan Randhawa MD [address] [place] [address] [place] [phone] Resident - PCP Internal Medicine 01/29/22 documented as of this encounter
--- OUTSIDE RECORDS SUMMARY | 2024-07-15 18:38 | XMS_ITS | Encounter Summary ---
Author Organization [facility] Health Address [address] [place] [address] Care Team Providers Care Fuse Assembler Name Role Phone Christa Velez APRN-BALANCE STAFF STAKER Unavailable [phone] Oswaldo BOSCH MD, Richard Sanchez Primary Care Provider [phone] Morgan Randhawa MD Unavailable Reason for Visit * Reason Comments Follow-up Ps Psoriatic Arthritis Encounter Details Date Type Department Care Team (Late st Contact Info) Description 06/06/2022 1:00 PM POISON INFORMATION SPECIALIST Office Visit [facility] [address] [place] [phone] Pineda Randhawa MD [address] [place] [address] [place] [phone] Psoriatic arthritis (HCC) (Primary Dx); Need for influenza vaccination; Therapeutic drug monitoring; Psoriasis; 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HCC) [...] Sign Reading Time Taken Comments Blood Pressure 122/82 06/06/2022 1:03 PM POISON INFORMATION SPECIALIST Pulse 95 06/06/2022 1:03 PM POISON INFORMATION SPECIALIST Temperature 36.5 ??C (97.7 ??F) 06/06/2022 1:03 PM CS T Respiratory Rate - - Oxygen Saturation 98% 06/06/2022 1:03 PM POISON INFORMATION SPECIALIST Inhaled Oxygen Concentration - - Weight 121.6 kg (268 lb) 06/06/2022 1:03 PM POISON INFORMATION SPECIALIST Height 172.7 cm (5' 8 ) 06/06/2022 1:03 PM POISON INFORMATION SPECIALIST Body Mass Index 40.75 06/06/2022 1:03 PM POISON INFORMATION SPECIALIST documented in this encounter Patient Instructions * Patient Instructions* Pineda Randhawa MD - 06/06/2022 1:42 PM POISON INFORMATION SPECIALIST You were seen for Psoriatic arthritis. Please continue the same medications. Get the labs today. Follow up in 4-6 months. .If you need to schedule,change or cancel your Rheumatology appointment -at the [facility] ([facility]) at [address] [place] [address], call [phone] or [phone] (option 1) If you choose to get labs or imaging at an outside facility, it is your (as the patient) responsibility to have these results faxed to us at [phone] If you need a refill, please call your Pharmacy first and have them send us a refill request via Fax at [phone]. If you have been given a referral to a new specialist at [facility] and have not received a call to schedule within 1 week, please call [phone] to schedule your visit. If you have been referred to Physical Therapy, but do not receive a call from them to schedule an appointment within 1 week, please call [phone] to schedule your Physical Therapy appointment. You can also utilize the Physical Therapy website at [email or web address] to make an appointment. If you need to leave a message for Dr. Randhawa you can send her an electronic message via [employer]. Her office FAX number is [phone]. If you have an emergency after hours, you can reach the precision optics technician Fellow by calling the Family Practitioner at [phone], but please seek appropriate care at Urgent Care or Emergency Room. ON INFORMATION SPECIALIST documented in this encounter Progress Notes * Pineda Randhawa MD - 06/06/2022 6:39 PM CST . Rheumatology Clinic Consultation Note Patient: Manoj Horner ( , 1995, 26 year old male) Encounter Date: 06/06/2022 Chief Concern: Follow up for psoriasis and PsA Subjective Patient is a a 25 year old male PMHx of PSO, autism spectrum disorder bipolar is here to follow up for arthralgia, working diagnosis possible PsA. On Cosentyx. Interim hx 06/06/2022: Patient is been accompanied by his mother. He mentioned since he has started cosentyx his pain in hands and feet is better controlled. His skin is clearing up. He inject every month. No side effects been reported. Current meds: cosentyx 300 mg SQ every 28 days Naproxen 500 mg bid Previous medication MTX [...] supply, Disp: 120 mL, Rfl: 11 ??? naproxen (Naprosyn) 500 MG tablet, Take 1 (one) tablet by mouth 2 times daily, Disp: , Rfl: ??? olanzapine (ZYPREXA) 10 MG tablet, Take [...] PCP - General (Internal Medicine) Christa Velez APRN-JESSICA as Psychiatrist (Nurse Practitioner) Morgan Randhawa MD as Resident - PCP (Internal Medicine) Objective Physical Exam BP 122/82 Pulse 95 Temp 97.7 ??F (36.5 ??C) (Temporal) Ht 5' 8 (1.727 m) Wt 268 lb (121.6 kg) SpO2 98% BMI 40.75 kg/m?? GENERAL: NAD HEENT/NECK: No oropharyngeal lesions. No palpable masses. CHEST/LUNGS: Normal work of breathing, CTAB. CARDIOVASCULAR: Regular rhythm, S1/S2, no M/R/G. No ALEC. ABDOMEN: S/ND/NT. SKIN/NAILS: healing lesions of psoriasis on legs, arms, forearms and knees PSYCH: Alert, appropriately interactive. NEURO: Sensation intact to soft touch. Normal muscle bulk and strength in trunk and limbs. MSK: No active synovitis, dactylitis, or enthesitis. Labs: Reviewed, including those as noted below Recent Results (from the past 2352 hour(s)) CBC WITH DIFFERENTIAL Collection Time: 06/06/22 2:21 PM Result Value Ref Range WBC 6.6 3.5 - 10.5 10??3/uL RBC 4.74 4.30 - 5.70 10??6/uL Hemoglobin 13.4 12.0 - 17.6 g/dL Hematocrit 40.2 35.2 - 51.7 % MCV 84.8 80.7 - 98.3 fL MCH 28.3 26.7 - 34.0 pg MCHC 33.3 30.8 - 35.9 g/dL RDW-SD 39.0 36.0 - 50.0 fL RDW-CV 12.7 11.2 - 14.8 % Platelet Count 183 150 - 400 10??3/uL MPV 9.5 9.4 - 12.9 fL nRBC Absolute 0.00 0 10??3/uL nRBC Auto 0.0 0 /100 WBC Neutrophils % 64.5 35.0 - 70.0 % Lymphocytes % 26.5 20.0 - 43.0 % Monocytes % 5.6 5.0 - 13.0 % Eosinophils % 1.4 0.0 - 6.0 % Basophil % 0.6 0.0 - 2.0 % Neutrophils Absolute 4.26 1.60 - 7.00 10??3/uL Lymphocyte Absolute 1.75 1.10 - 3.90 10??3/uL Monocytes Absolute 0.37 0.26 - 1.07 10??3/uL Eosinophils Absolute 0.09 0.00 - 0.47 10??3/uL Basophils Absolute 0.04 0.00 - 0.08 10??3/uL Immature Granulocytes % 1.4 (H) 0.0 - 1.0 % Immature Granulocytes Absolute 0.09 COMPREHENSIVE METABOLIC PANEL Collection Time: 06/06/22 2:21 PM Result Value Ref Range BUN 14 7 - 26 mg/dL Creatinine 0.83 0.71 - 1.16 mg/dL Sodium 139 136 - 145 mmol/L Potassium 4.0 3.5 - 4.5 mmol/L Chloride 109 (H) 98 - 107 mmol/L CO2 22 22 - 29 mmol/L Glucose 93 70 - 115 mg/dL Calcium 8.7 8.4 - 10.2 mg/dL Protein Total 6.8 6.0 - 8.3 g/dL Albumin 3.8 3.4 - 5.0 g/dL Bilirubin Total 0.2 0.2 - 1.2 mg/dL Alkaline Phosphatase 112 40 - 150 U/L ALT 43 5 - 55 U/L AST 17 5 - 34 U/L Anion Gap 12 8 - 18 BUN/Creatinine Ratio 17 7 - 23 Osmolality Calculated 288 270 - 300 mOsm/kg Albumin/Globulin Ratio 1.3 1.1 - 2.3 eGFR by CKD-EPI >90 >=90 mL/min/1.73 m2 Other Studies: X-rays 07/2021: Left shoulder: The [...] XR SI JOINTS 3VW OR MORE 07/2021: FINDINGS: ?? There is no erosion, sclerosis, widening, [...] On Cosentyx 300 mg SQ every month Naproxen 500 mg bid #. Drug Toxicity [...] month [] Naproxen 500 mg bid [] Continue following up with cutter aluminum sheet for skin lesions [] CBC, CMP for monitoring been on Naproxen #. Follow-up: In 4 months or sooner if needed. ?? This patient was seen and staffed with attending Dr. Naqvi. Pineda Randhawa MD Rheumatology Fellow [facility] Encounter orders: Orders Placed This Encounter ??? FLU VACCINE (Flublok) QUAD RIV4 PF IM ??? CBC WITH DIFFERENTIAL Standing Status: Future Standing Expiration Date: 06/06/2023 Order Specific Question: Release to patient Answer: Immediate ??? CBC WITH DIFFERENTIAL Standing Status: Future Number of Occurrences: 1 Standing Expiration Date: 07/01/2023 Order Specific Question: Release to patient Answer: Immediate ??? COMPREHENSIVE METABOLIC PANEL Standing Status: Future Number of Occurrences: 1 Standing Expiration Date: 07/01/2023 Order Specific Question: Release to patient Answer: Immediate ON INFORMATION SPECIALIST Associated attestation - Will Naqvi MD - 06/07/2022 11:59 AM POISON INFORMATION SPECIALIST Rheumatology Attending Attestation: Date of Service: 06/06/22 I have seen and examined the patient with the fellow and I agree with the findings and plan of careas documented by the fellow. Encounter Diagnoses: 1. Psoriatic arthritis (CMS/HCC) 2. Need for influenza vaccination 3. Therapeutic drug monitoring 4. Psoriasis 5. 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 No active inflammatory arthritis signs on exam. psoriasis controlled. so far responding well to Cosentyx. continue it every 4 weeks subcut. Additional contributions to medical decision making for today's encounter: - The patient has a chronic illness that poses a threat to life or bodily function in the short-term without treatment. - The patient is on drug therapy requiring intensive monitoring for toxicity. - I reviewed the patient's chart including review of clinical notes, laboratory results, and imaging results dating back to 01/12 - Additional independent source(s) of information used for assessment included the patient's motherwho accompanied the patient during the visit. - I educated the patient regarding risks and benefits of the management plan, their medical problems, and contingency plans for worsening symptoms. - Total time spent reviewing records, conducting interview and physical, counseling, care coordination, placing any orders for investigative studies and/or medications, and documentation: 40 +minutes. Will Naqvi MD Division of Rheumatology Department of Internal Medicine [facility] Encounter Orders and Future Appointments: Orders Placed This Encounter FLU VACCINE (Flublok) QUAD RIV4 PF IM CBC WITH DIFFERENTIAL CBC WITH DIFFERENTIAL COMPREHENSIVE METABOLIC PANEL Future Appointments Date Time Provider Department Center 12/05/2022 1:00 PM Pineda Randhawa MD [id number] [facility]FF [facility] 02/04/2023 11:00 AM Richard Chacon III, MD [id number] [facility]FF [facility] 03/21/2023 2:30 PM Ismael Castro, PhD AFFSLUOTOGL [facility]FF [facility] 03/21/2023 3:00 PM Froilan Monae MD [facility] documented in this encounter Plan of Treatment Upcoming Encounters Date Type Department Care Team (Late st Contact Info) Description 10/21/2024 1:30 PM CDT Office Visit [facility] - Rheumatology [address] [place] [phone] Paulino Youngblood MD [address] [place] [address] [place] [address] 11/30/2024 3:00 PM CDT Office Visit [facility] - ENT [address] [place] [phone] Froilan Monae MD [address] [place] [address] [place] [address] 02/15/2025 10:00 AM CDT Office Visit [facility] - Internal Med [address] [place] [phone] Richard Chacon III, MD [address] [phone] documented as of this encounter Results * (ABNORMAL) COMPREHENSIVE METABOLIC PANEL (06/06/2022 2:21 PM POISON INFORMATION SPECIALIST) BUN 14 7 - 26 mg/dL 06/06/2022 3:16 PM [facility] Creatinine 0.83 0.71 - 1.16 mg/dL 06/06/2022 3:16 PM [facility] Sodium 139 136 - 145 mmol/L 06/06/2022 3:16 PM [facility] Potassium 4.0 3.5 - 4.5 mmol/L 06/06/2022 3:16 PM [facility] Chloride 109(H) 98 - 107 mmol/L 06/06/2022 3:16 PM [facility] CO2 22 22 - 29 mmol/L 06/06/2022 3:16 PM [facility] Glucose 93 70 - 115 mg/dL 06/06/2022 3:16 PM [facility] Calcium 8.7 8.4 - 10.2 mg/dL 06/06/2022 3:16 PM [facility] Protein Total 6.8 6.0 - 8.3 g/dL 06/06/2022 3:16 PM [facility] Albumin 3.8 3.4 - 5.0 g/dL 06/06/2022 3:16 PM [facility] Bilirubin Total 0.2 0.2 - 1.2 mg/dL 06/06/2022 3:16 PM [facility] Alkaline Phosphatase 112 40 - 150 U/L 06/06/2022 3:16 PM [facility] ALT 43 5 - 55 U/L 06/06/2022 3:16 PM [facility] AST 17 5 - 34 U/L 06/06/2022 3:16 PM [facility] Anion Gap 12 8 - 18 06/06/2022 3:16 PM [facility] BUN/Creatinine Ratio 17 7 - 23 06/06/2022 3:16 PM [facility] Osmolality Calculated 288 270 - 300 mOsm/kg 06/06/2022 3:16 PM [facility] Albumin/Globulin Ratio 1.3 1.1 - 2.3 06/06/2022 3:16 PM [facility] eGFR by CKD-EPI >90 >=90 mL/min/1.7 3 m2 06/06/2022 3:16 PM [facility] Blood BLOOD SPECIMEN / Unknown Lab Venipuncture / Unknown 06/06/2022 2:21 PM POISON INFORMATION SPECIALIST 06/06/2022 2:51 PM POISON INFORMATION SPECIALIST Will Naqvi MD LAB - CHEMISTRY ORDE [facility] Organization Address City/State/ZIP Co de Phone Number [facility] [address] [place] [phone], [facility] [phone] * (ABNORMAL) CBC WITH DIFFERENTIAL (06/06/2022 2:21 PM POISON INFORMATION SPECIALIST) WBC 6.6 3.5 - 10.5 10? 3 /uL 06/06/2022 2:58 PM [facility] RBC 4.74 4.30 - 5.70 10? 6 /uL 06/06/2022 2:58 PM [facility] Hemoglobin 13.4 12.0 - 17.6 g/dL 06/06/2022 2:58 PM [facility] Hematocrit 40.2 35.2 - 51.7 % 06/06/2022 2:58 PM [facility] MCV 84.8 80.7 - 98.3 fL 06/06/2022 2:58 PM [facility] MCH 28.3 26.7 - 34.0 pg 06/06/2022 2:58 PM [facility] MCHC 33.3 30.8 - 35.9 g/dL 06/06/2022 2:58 PM [facility] RDW-SD 39.0 36.0 - 50.0 fL 06/06/2022 2:58 PM [facility] RDW-CV 12.7 11.2 - 14.8 % 06/06/2022 2:58 PM [facility] Platelet Count 183 150 - 400 10? 3 /uL 06/06/2022 2:58 PM [facility] MPV 9.5 9.4 - 12.9 fL 06/06/2022 2:58 PM [facility] nRBC Absolute 0.00 0 10? 3 /uL 06/06/2022 2:58 PM [facility] nRBC Auto 0.0 0 /100 WBC 06/06/2022 2:58 PM [facility] Neutrophils % 64.5 35.0 - 70.0 % 06/06/2022 2:58 PM [facility] Lymphocytes % 26.5 20.0 - 43.0 % 06/06/2022 2:58 PM [facility] Monocytes % 5.6 5.0 - 13.0 % 06/06/2022 2:58 PM [facility] Eosinophils % 1.4 0.0 - 6.0 % 06/06/2022 2:58 PM [facility] Basophil % 0.6 0.0 - 2.0 % 06/06/2022 2:58 PM [facility] Neutrophils Absolute 4.26 1.60 - 7.00 10? 3 /uL 06/06/2022 2:58 PM [facility] Lymphocyte Absolute 1.75 1.10 - 3.90 10? 3 /uL 06/06/2022 2:58 PM [facility] Monocytes Absolute 0.37 0.26 - 1.07 10? 3 /uL 06/06/2022 2:58 PM [facility] Eosinophils Absolute 0.09 0.00 - 0.47 10? 3 /uL 06/06/2022 2:58 PM [facility] Basophils Absolute 0.04 0.00 - 0.08 10? 3 /uL 06/06/2022 2:58 PM [facility] Immature Granulocytes % 1.4(H) 0.0 - 1.0 % 06/06/2022 2:58 PM [facility] Immature Granulocytes Absolute 0.09 06/06/2022 2:58 PM [facility] Blood BLOOD SPECIMEN / Unknown Lab Venipuncture / Unknown 06/06/2022 2:21 PM POISON INFORMATION SPECIALIST 06/06/2022 2:51 PM POISON INFORMATION SPECIALIST Will Naqvi MD LAB - HEMATOLOGY ORD ERABLES [facility] [address] [place] [address], [facility] [phone] documented in this encounter Visit Diagnoses Diagnosis Psoriatic arthritis (HCC)- Primary Psoriatic arthropathy Need for influenza vaccination Need for prophylactic vaccination and inoculation against influenza Therapeutic drug monitoring Encounter for therapeutic drug monitoring Psoriasis Other psoriasis 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HCC) documented in this encounter Care Teams Fuse Assembler Relationship Specialty Start Date End Date Richard Chacon III, MD [address] [place] [phone] PCP - General Internal Medicine 01/29/22 Christa Velez APRN-BALANCE STAFF STAKER [address] [place] [phone] Psychiatrist Nurse Practitioner 08/07/21 Morgan Randhawa MD [address] [facility] [place] [phone] Resident - PCP Internal Medicine 01/29/22 documented as of this encounter
--- OUTSIDE RECORDS SUMMARY | 2024-07-15 18:39 | XMS_ITS ---
Author Organization [facility] As [employer] Address [address] [facility] [address] [place] [address] Care Team Providers Care Permanent Mold Supervisor Name Role Phone Maldonado ARAUZ MD Primary Care Provider Christa Laura Unavailable [phone] Allergies No Known Allergies REASON FOR VISIT Depression, was hospitalized for feeling suicidal and thoughts of self harm, admitted himself in [place]. About 4 weeks ago maybe Medications Medication SIG (Take, Route, Frequency, Duration) Notes Start Date End Date Status COSENTYX PEN 300 MG/2 PENS (150 MG/ML) SUBCUTANEOUS *Reorder from [employer] App for eRx and Interaction Alerts* 09/02/2023 Active Hydrocortisone 2.50% External 09/02/2023 Active Folic Acid 1 MG Oral 09/02/2023 Act artur Clobetasol Propionate 0.05 % External 09/02/2023 Active Naproxen 500 MG Oral 09/02/2023 Act artur Venlafaxine HCl ER 37.5 MG TAKE 1 CAPSULE BY MOUTH DAILY WITH FOOD Oral Once a day for 90 days Active Citalopram Hydrobromide 40 MG 1 tablet Oral Once a day for 90 days 09/02/2023 Active buPROPion HCl ER (SR) 200 MG 1 tablet in the morning Oral Once a day for 90 days 09/02/2023 Active Calcipotriene 0.005 % External 09/02/2023 Active Melatonin 3 MG Oral 09/02/2023 Acti ve Cholecalciferol 25 MCG (1000 UT) Oral 09/02/2023 Active Ketoconazole 2% External 09/02/2023 Act artur AFLURIA QD 2019- (36 MOS UP)(PF)60 MCG (15 MCG X4)/0.5 ML IM SYRINGE *Reorder from [employer] App for eRx and Interaction Alerts* 09/02/2023 Active OLANZapine 10 MG 1 tablet Orally bedtime for 90 days 09/02/2023 Active Social History Tobacco Use: Social History Observation Description Date Details (start date - stop date) Never Smoker NA - NA Sex Assigned At : Social History Observation Description Sex Assigned At Male Household Question Answer Notes Marital status: single Number of adults in household: 2 l dorie with parents Tobacco Control (Standard) Question Answer Notes Tobacco use: Nonsmoker Additional Findings: Tobacco non-user Current no nsmoker AUDIT-C (Standard) Question Answer Notes Did you have a drink containing alcohol in the p ast year? No Points 0 Interpretation Negative Vital Signs Blood pressure systolic 132 mm Hg 03/12/20 24 Blood pressure diastolic 89 mm Hg 024 Heart Rate 105 /min 03/12/2024 Height 67.00 in 03/12/2024 Weight 269.8 lbs 03/12/2024 BMI 42.25 kg/m2 03/12/2024 Height-cm 170.18 cm 03/12/2024 Weight-kg 122.38 kg 03/12/2024 Encounters Encounter Location Date Provider Diagnosis [facility] [address] [place] [address] [address] 03/12/2024 Christa Rankin Bipolar disorder, current episode depressed, mild F31.31 ; Generalized anxiety disorder F41.1 ; Insomnia due to other mental disorder F51.05 and Autistic disorder F84.0 Assessments Encounter Date Diagnosis (ICD Code) Assessment Notes Treatment Notes Treatment Clinical Notes Section Notes 03/12/2024 Bipolar disorder, current episode depressed, mild (ICD-10 - F31.31) 1. Bipolar affective disorder, current episode depression - reviewed labs 07/25/23 and RA provider office note from 07/24/23 Neurologist for migraines schedule 2023 refer to therapy Zyprexa 10 mg at bedtime Effexor ER 37.5 mg in am - depression and anxiety- educated on rx and monitor B/P Wellbutrin SR 200 mg twice a day AIMS=0 12/08/20 AIMS=0 03/05/22 AIMS= 0 06/03/23 educated on all medications, benefits, side effects and risk, and educated on depression, anxiety, and mood d/o and educated on compliance of medications, appointment's, continue therapy discussion with patient about course of treatment and patient instructions. metabolic and movement d/o education 2. Generalized anxiety disorder - Celexa 40 mg daily educated on anxiety and prevention 3. Insomnia disorder related to another mental disorder - hypersomnia hx Melatonin 3 mg at night OTC 4. Autistic disorder -stable 5. Long-term drug therapy 03/12/2024 Generalized anxiety disorder (ICD-10 - F41.1) 1. Bipolar affective disorder, current episode depression - reviewed labs 07/25/23 and RA provider office note from 07/24/23 Neurologist for migraines schedule 2023 refer to therapy Zyprexa 10 mg at bedtime Effexor ER 37.5 mg in am - depression and anxiety- educated on rx and monitor B/P Wellbutrin SR 200 mg twice a day AIMS=0 12/08/20 AIMS=0 03/05/22 AIMS= 0 06/03/23 educated on all medications, benefits, side effects and risk, and educated on depression, anxiety, and mood d/o and educated on compliance of medications, appointment's, continue therapy discussion with patient about course of treatment and patient instructions. metabolic and movement d/o education 2. Generalized anxiety disorder - Celexa 40 mg daily educated on anxiety and prevention 3. Insomnia disorder related to another mental disorder - hypersomnia hx Melatonin 3 mg at night OTC 4. Autistic disorder -stable 5. Long-term drug therapy 03/12/2024 Insomnia due to other mental disorder (ICD-10 - F51.05) 1. Bipolar affective disorder, current episode depression - reviewed labs 07/25/23 and RA provider office note from 07/24/23 Neurologist for migraines schedule 2023 refer to therapy Zyprexa 10 mg at bedtime Effexor ER 37.5 mg in am - depression and anxiety- educated on rx and monitor B/P Wellbutrin SR 200 mg twice a day AIMS=0 12/08/20 AIMS=0 03/05/22 AIMS= 0 06/03/23 educated on all medications, benefits, side effects and risk, and educated on depression, anxiety, and mood d/o and educated on compliance of medications, appointment's, continue therapy discussion with patient about course of treatment and patient instructions. metabolic and movement d/o education 2. Generalized anxiety disorder - Celexa 40 mg daily educated on anxiety and prevention 3. Insomnia disorder related to another mental disorder - hypersomnia hx Melatonin 3 mg at night OTC 4. Autistic disorder -stable 5. Long-term drug therapy 03/12/2024 Autistic disorder (ICD-10 - F84.0) 1. Bipolar affective disorder, current episode depression - reviewed labs 07/25/23 and RA provider office note from 07/24/23 Neurologist for migraines schedule 2023 refer to therapy Zyprexa 10 mg at bedtime Effexor ER 37.5 mg in am - depression and anxiety- educated on rx and monitor B/P Wellbutrin SR 200 mg twice a day AIMS=0 12/08/20 AIMS=0 03/05/22 AIMS= 0 06/03/23 educated on all medications, benefits, side effects and risk, and educated on depression, anxiety, and mood d/o and educated on compliance of medications, appointment's, continue therapy discussion with patient about course of treatment and patient instructions. metabolic and movement d/o education 2. Generalized anxiety disorder - Celexa 40 mg daily educated on anxiety and prevention 3. Insomnia disorder related to another mental disorder - hypersomnia hx Melatonin 3 mg at night OTC 4. Autistic disorder -stable 5. Long-term drug therapy Plan Of Treatment Medication Medication Name Sig Start Date Stop Date Notes Venlafaxine HCl ER 37.5 MG TAKE 1 CAPSUL E BY MOUTH DAILY WITH FOOD Oral Once a day for 90 days Citalopram Hydrobromide 40 MG 1 tablet O ral Once a day for 90 days 09/02/2023 buPROPion HCl ER (SR) 200 MG 1 tablet in the morning Oral Once a day for 90 days 09/02/2023 OLANZapine 10 MG 1 tablet Orally bedt wilfredo for 90 days 09/02/2023 Next Appt Details Follow Up: 3 Months, Reason: refer to therapy Provider Name:Christa Rankin , 09/22/2024 09:15:00 AM, [address], [facility] [address], [place], [address], Progress Notes * CESAR SPEAROB: 7 (28 yo M)Acc No.[id number]:03/12/2024 Patient:?BUCKS, JEAN Provider:?CHRISTA RANKIN PMHNP :1995???Age:28 Y???Sex:Male Osiel e:03/12/2024 Phone: [facility] [id number] Pcp:Maldonado ARAUZ MD Subjective: * Chief Complaints: * ???1. Depression, was hospit alized for feeling suicidal and thoughts of self harm, admitted himself in [place]. About 4 weeks ago maybe. * HPI: ???History of Presenting Problem:? Bipolar DisorderReported by?patient.Type:?Bipolar I Context:? no?mood swings Onset/Timing:?chronic Severity:?mild Onset/Timing:?chronic Severity:?mild Follow up Bipolar depression, NELA, Insomnia, chronic report I been doing better now, report I?was hospitalized for feeling suicidal and thoughts of self harm, with stress admitted himself in [place]. About 4 weeks ago maybe, I did not have any medications changes at hospital I had stress at home building up and trigger it, and after that I was doing adult things and then had self admitted to not arm self and help my depression and I feel great now, I am not in therapy and would like to see therapy I feel will help me, I am??feeling great now and denies?sad, down and no hopeless or helpless, I also have more motivation to do things I like doing and eating less and lost weight, and?sleep well, average 8 hours, and no SI/HI no passive thoughts no plans or intent, I been taking arthritis rx as prescribed and pain little here and there and nothing to bad I had injection and last 4 weeks, I get migraines and journal them for neurologist, I had 2 migraines this week, the situation at home slowly improved and?been nice, not feeling anxious, restless, or fidgety, no irritable, no aggression or agitation, no behaviors, no psychosis, no delusions no charli, no paranoia, no delusions, I used my energy in healthy way with excise and positive way to get things done, concentrate and focus very good, I play video games, motivated and interest to do a lot things I enjoy, no SI/HI, I have no abnormal movement d/o and none noted, everything been going good, sister x2 dad and sister bipolar and anxiety one sister austric and does not talk denies SI/HI no plans or intent no thoughts harm to self or others, no past attempts, ETOH denies smoking denies labs recently with RA provider? drugs denies seen derm and will see RA 09/06/2021. ???Dorena-Suicide Severity Rating Scale:?Suicide Risk (CSRS-screener)?in the past one month Have you wished you were or wished you could go to sleep and not wake up??No,?in the past one month Have you actually had any thoughts of killing yourself??No,?Have you ever done anything, started to do anything, or prepared to do anything to end your life??No.?Depression Screening:?NELA-7 (2018 Edition)?Feeling nervous, anxious, or on edge?Not at all,?Not being able to stop or control worrying?Not at all,?Worrying too much about different things?Not at all,?Trouble relaxing?Not at all,?Being so restless that it is hard to sit still?Not at all,?Becoming easily annoyed or irritable?Not at all,?Feeling afraid as if something awful might happen?Not at all,?Total NELA-7 Score?0,?Interpretation of Total?(0 to 4) No Anxiety.?Depression screening:?PHQ-9?Little interest or pleasure in doing things?Not at all,?Feeling down, depressed, or hopeless?Not at all,?Trouble falling or staying asleep, or sleeping too much?Not at all,?Feeling tired or having little energy?Not at all,?Poor appetite or overeating?Not at all,?Feeling bad about yourself or that you are a failure, or have let yourself or your family down?Not at all,?Trouble concentrating on things, such as reading the newspaper or watching television?Not at all,?Moving or speaking so slowly that other people could have noticed; or the opposite, being so fidgety or restless that you have been moving around a lot more than usual?Not at all,?Thoughts that you would be better off or of hurting yourself in some way?Not at all,?Total Score?0.?Intervention?Depression Screening Findings?Positve,?Follow-Up for Depression?Management of mental health treatment,?Suicide Risk Assessment Performed? ,?Additional Evaluation for Depression?Psychiatric interview and evaluation,?Name of the standardized tool used for adult depression screening:?Patient Health Questionnaire (PHQ-9).? * ROS:?Patient reports?weight loss none?but reports no fever and no significant weight gain. He reports?difficulty hearing (hearing aids) hx tubes in childhood . He reports no abdominal pain, no nausea, no vomiting, no constipation, normal appetite, no diarrhea, and no GERD;?sensitivity to certain foods and caused migraines. He reports?arthralgias/joint pain?but reports no muscle aches, no muscle weakness, no back pain, no neck pain, and no difficulty walking;?psoriasis joint pain seeing RA provider dxn 2021. ?He reports?dry skin;?psoriasis see crepe box tender /RA provider skin d/o improving with rx. He reports?frequent or severe headaches and migraines?but reports no loss of consciousness, no weakness, no numbness, no seizures, no dizziness, no tremor, no gait dysfunction, and no paralysis;?see neurologist. He reports mild depression, no sleep disturbances (hx hyposomnia), mild anxiety, and no memory loss?but reports no alcohol abuse, no hallucinations, no suicidal thoughts, no mood swings, and no agitation. He reports no fatigue. ?He reports no chest pain, no shortness of breath when walking, no shortness of breath when lying down, and no palpitations. He reports no cough and no shortness of breath. He reports no incontinence and no difficulty urinating. * Medical History:?Problems: A utistic disorder, Bipolar affective disorder, current episode depression, Generalized anxiety disorder, Insomnia disorder related to another mental disorder, Long-term drug therapy, Overweight, Vitamin D deficiency, Weight gain, ,. * Surgical History:?tubes ears childhood . * Hospitalization/Major Diagno stic Procedure:[facility] - depression and suicidal thoughts 02/14 . * Family History:?Father: stephen restrepo, Depressive disorder , Diabetes mellitus , Bipolar disorder , diagnosed with Mental health disorder.?Maternal Aunt: Diabetes mellitus , Family history of cancer .?Mother: alive.?Maternal Grandfather: Diabetes mellitus .?Maternal Grandmother: Diabetes mellitus .?Sister: alive, Diabetes mellitus .?2 sister(s) . .? heart disease DM in FH. * Social History:?Tobacco Use:?Tobacco Control (Standard)?Tobacco use:?Nonsmoker,?Additional Findings: Tobacco non-user?Current nonsmoker.?Migrated Social History:?Migrated Social History: Alcohol Intake: None 09/03/2019,Tobacco Years: Never smoker 09/03/2019. ???Drug/Alcohol:?Drugs?Have you used drugs other than those for medical reasons in the past 12 months??No.?Do you smoke marijuana?: Denies. Do you drink alcohol?: No. AUDIT-C (Standard)?Did you have a drink containing alcohol in the past year??No,?Points?0,?Interpretation?Negative.?Household:?Household?Marital status:?single,?Number of adults in household:?2 lives with parents,?Number of siblings:?2 2 sisters,?Marital status of the child's parents:?,?With whom does the child live??with both parents.? * Medications:?Taking buPROPio n HCl ER (SR) 200 MG Tablet Extended Release 12 Hour 1 tablet in the morning Oral Once a day , Taking OLANZapine 10 MG Tablet 1 tablet Orally bedtime , Taking Cholecalciferol 25 MCG (1000 UT) Capsule Oral , Taking Melatonin 3 MG Tablet Oral , Taking AFLURIA QD (36 MOS UP)(PF)60 MCG (15 MCG X4)/0.5 ML IM SYRINGE , Notes to Pharmacist: *Reorder from [employer] App for eRx and Interaction Alerts*, Taking Ketoconazole 2% Shampoo External , Taking Calcipotriene 0.005 % Cream External , Taking Naproxen 500 MG Tablet Oral , Taking Citalopram Hydrobromide 40 MG Tablet Oral , Taking Clobetasol Propionate 0.05 % Ointment External , Taking Folic Acid 1 MG Tablet Oral , Taking Hydrocortisone 2.50% Cream External , Taking COSENTYX PEN 300 MG/2 PENS (150 MG/ML) SUBCUTANEOUS , Notes to Pharmacist: *Reorder from [facility] for eRx and Interaction Alerts*, Taking Venlafaxine HCl ER 37.5 MG Capsule Extended Release 24 Hour TAKE 1 CAPSULE BY MOUTH DAILY WITH FOOD , Discontinued CeleXA 40 MG Tablet 1 tablet Oral Once a day , Discontinued Wellbutrin SR 200 MG Tablet Extended Release 12 Hour Oral , Discontinued ZyPREXA 10 mg Tablet Oral , Medication List reviewed and reconciled with the patient * Allergies:?N.K.D.A. Objective: * Vitals:?BP:132/89mm Hg, HR:1 05/min, Wt:269.8lbs, Wt-k.38 kg, Ht: 67.00 in, Ht-cm: 170.18 cm, BMI:42.25Index, Body Surface Area: 2.4. * Examination: ???Psychiatry: ?Appearance:?well-groomed, well-nourished, appears stated age.?Abnormal body movements:?none.?Affect / mood:?appropriate, full range.?Aggression:?low.?Anger control:?good.?Attention:?good.?Attitude:?cooperative.?Homicidal ideation:?none.?Suicidal ideation:?none.?Memory status:?no impairment noted.?Degree of awareness of surroundings:?within normal limits.?Delusions:?no.?Hallucinations:?no.?Impulse control:?good.?Insight:?good.?Intellectual functioning:?below average.?Comprehension - Intellectual function:?average.?Judgement:?good.?Orientation:?awake, alert and oriented x 3.?Perceptual disorders:?no perceptual disorder noted.?Psychomotor activity:?within normal range.?Sexual impulse control:?good.?Speech / language:?appropriate pitch/modulation, clear and coherent, normal rate, volume, and articulation (RVR), proper grammar used.?Thought content:?appropriate.?Thought process:?intact.? Assessment: * Assessment: 1.?Bipolar disorder, current episode depressed, mild - F31.31 (Primary)???2.?Generalized anxiety disorder - F41.1???3.?Insomnia due to other mental disorder - F51.05???4.?Autistic disorder - F84.0??? 1. Bipolar affective disorde r, current episode depression - reviewed labs 07/25/23 and RA provider office note from 07/24/23 Neurologist for migraines schedule 2023 refer to therapy? Zyprexa 10 mg at bedtime Effexor ER 37.5 mg in am - depression and anxiety- educated on rx and monitor B/P Wellbutrin SR 200 mg twice a day AIMS=0 12/08/20 AIMS=0 03/05/22 AIMS= 0 06/03/23 educated on all medications, benefits, side effects and risk, and educated on depression, anxiety, and mood d/o and educated on compliance of medications, appointment's, continue therapy discussion with patient about course of treatment and patient instructions. metabolic and movement d/o education 2. Generalized anxiety disorder - Celexa 40 mg daily educated on anxiety and prevention 3. Insomnia disorder related to another mental disorder - hypersomnia hx Melatonin 3 mg at night OTC 4. Autistic disorder -stable 5. Long-term drug therapy Plan: * Treatment: 2.?Generalized anxiety disor atif? Refill Citalopram Hydrobromide Tablet, 40 MG, 1 tablet, Oral, Once a day, 90 days, 90 Tablet, Refills 0;?Refill Venlafaxine HCl ER Capsule Extended Release 24 Hour, 37.5 MG, TAKE 1 CAPSULE BY MOUTH DAILY WITH FOOD, Oral, Once a day, 90 days, 90 Capsule, Refills 0.?? * Procedure Codes:?04285 BEHAV ASSMT W/SCORE & DOCD/STAND INSTRUMENT, G2211 VISIT COMPLEXITY INHERENT TO ONGOING CARE RELATED TO A PATIENT'S SINGLE, SERIOUS CONDITION OR A COMPLEX CONDITION * Preventive Medicine:? ??Counseling:?BP Management:?PRE-HYPERTENSIVE FOLLOW-UP PLAN:?educated on healthy b/p 120/80monitor b/p at homerefer to PCP,heart healthy diet and exciselimit salt intake and caffeine,?REFERRAL TO ALTERNATIVE / PRIMARY CARE PROVIDER:? .?Communication to patient:?Counseled the Patient on tobacco use; cessation provided?non smoker.? * Follow Up:?3 Months (Reason: refer to therapy) * Billing Information: * Visit Code:? 74440 OFFICE OUTPATIENT VISIT 25 MINUTES DETAILED HISTORY AND EXAM/MODERATE MEDICAL DECISION MAKING. * Procedure Codes:? 18396 BEHAV ASSMT W/SCORE & DOCD/STAND INSTRUMENT. G2211 VISIT COMPLEXITY INHERENT TO ONGOING CARE RELATED TO A PATIENT'S SINGLE, SERIOUS CONDITION OR A COMPLEX CONDITION. * Sign off status: Completed true * Provider:?TIFFANY WILL Date:? Generated for Irma milian/Aryan/Sam on:?07/15/2024 06:39 PM ASSET ADMINISTRATOR History and Physical Notes * HPI (History of Present Illness) Category Sub-Category Detail Notes Category Not es History of Presenting Problem Bipolar DisorderReported by patient.Type: Bipolar I Context: no mood swings Onset/Timing: chronic Severity: mild Onset/Timing: chronic Severity: mild Follow up Bipolar depression, NELA, Insomnia, chronic report I been doing better now, report I was hospitalized for feeling suicidal and thoughts of self harm, with stress admitted himself in [place]. About 4 weeks ago maybe, I did not have any medications changes at hospital I had stress at home building up and trigger it, and after that I was doing adult things and then had self admitted to not arm self and help my depression and I feel great now, I am not in therapy and would like to see therapy I feel will help me, I am feeling great now and denies sad, down and no hopeless or helpless, I also have more motivation to do things I like doing and eating less and lost weight, and sleep well, average 8 hours, and no SI/HI no passive thoughts no plans or intent, I been taking arthritis rx as prescribed and pain little here and there and nothing to bad I had injection and last 4 weeks, I get migraines and journal them for neurologist, I had 2 migraines this week, the situation at home slowly improved and been nice, not feeling anxious, restless, or fidgety, no irritable, no aggression or agitation, no behaviors, no psychosis, no delusions no charli, no paranoia, no delusions, I used my energy in healthy way with excise and positive way to get things done, concentrate and focus very good, I play video games, motivated and interest to do a lot things I enjoy, no SI/HI, I have no abnormal movement d/o and none noted, everything been going good, sister x2 dad and sister bipolar and anxiety one sister austric and does not talk denies SI/HI no plans or intent no thoughts harm to self or others, no past attempts, ETOH denies smoking denies labs recently with RA provider drugs denies seen derm and will see RA 09/06/2021 Depression screening PHQ-9 Little interest or pleasure in doing things: Not at all Feeling down, depressed, or hopeless: No t at all Trouble falling or staying asleep, or sl eeping too much: Not at all Feeling tired or having little energy: N ot at all Poor appetite or overeating: Not at all Feeling bad about yourself o r that you are a failure, or have let yourself or your family down: Not at all Trouble concentrating on thi ngs, such as reading the newspaper or watching television: Not at all Moving or speaking so slowly that other people could have noticed; or the opposite, being so fidgety or restless that you have been moving around a lot more than usual: Not at all Thoughts that you would be b haydee off or of hurting yourself in some way: Not at all Total Score: 0 Intervention Depression Screening Findings: P ositve Follow-Up for Depression: Management of mental health treatment Suicide Risk Assessment Performed: Additional Evaluation for De pression: Psychiatric interview and evaluation Name of the standardized too l used for adult depression screening:: Patient Health Questionnaire (PHQ-9) Depression Screening NELA-7 (2018 Edition) Feelin g nervous, anxious, or on edge: Not at all Not being able to stop or control worryi ng: Not at all Worrying too much about different things : Not at all Trouble relaxing: Not at all Being so restless that it is hard to sit still: Not at all Becoming easily annoyed or irritable: No t at all Feeling afraid as if something awful ira ht happen: Not at all Total NELA-7 Score: 0 Interpretation of Total: (0 to 4) No Anx iety Dorena-Suicide Severity Rating Scale Suicide Risk (CSRS-screener) in the past one month Have you wished you were or wished you could go to sleep and not wake up?: No in the past one month Have y ou actually had any thoughts of killing yourself?: No ?Have you ever done anything , started to do anything, or prepared to do anything to end your life?: No Examination Category Sub-Category Detail Notes Category Not es Psychiatry Appearance: well-groomed, we ll-nourished, appears stated age Attitude: cooperative Psychomotor activity: within normal rang e Abnormal body movements: none Attention: good Degree of awareness of surroundings: wit hin normal limits Orientation: awake, alert and soila ented x 3 Affect / mood: appropriate, full ra nge Speech / language: appropriate pitch/mo dulation, clear and coherent, normal rate, volume, and articulation (RVR), proper grammar used Insight: good Judgement: good Thought process: intact Thought content: appropriate Perceptual disorders: no perceptual diso rder noted Aggression: low Anger control: good Suicidal ideation: none Homicidal ideation: none Intellectual functioning: below average Impulse control: good Sexual impulse control: good Memory status: no impairment noted Delusions: no Hallucinations: no Comprehension - Intellectual function: a verage
--- OUTSIDE RECORDS SUMMARY | 2024-07-15 18:39 | XMS_ITS | Encounter Summary ---
Author Organization [facility] Health Address [address] [facility] [place] [address] Care Team Providers Care Medical Referral Coordinator Name Role Phone Unavailable Primary Care Provider Unavailabl e Encounter Details Date Type Department Care Team (Latest Contact Info) Description 04/03/2021 Travel Social History Tobacco Use Types Packs/Day Years Used Date Smoking Tobacco: Never Alcohol Use Standard Drinks/Week Comments [...] have Coronavirus / COVID-19? No / Unsure 04/03/2021 11:52 AM CDT documented as of this encounter Plan of Treatment Upcoming Encounters Date Type Department Care Team (Late st Contact Info) Description 10/21/2024 1:30 PM CDT Office Visit [facility] - Rheumatology [address] [place] [phone] Paulino Youngblood MD [address] [place] [address] [place] [phone] 11/30/2024 3:00 PM CDT Office Visit [facility] - ENT [address] [place] [phone] Froilan Monae MD [address] [place] [address] [place] [address] 02/15/2025 10:00 AM CDT Office Visit [facility] - Internal Med [address] [place] [phone] Richard Chacon III, MD [address] [place] [address] [place] [phone] documented as of this encounter Visit Diagnoses Not on filedocumented in this encounter
--- OUTSIDE RECORDS SUMMARY | 2024-07-15 18:39 | XMS_ITS ---
Author Organization [facility] [employer] Address [address] [place] [address] Care Team Providers Care Director Data Management Name Role Phone Maldonado ARAUZ MD Primary Care Provider Christa Laura Unavailable [phone] Allergies No Known Allergies REASON FOR VISIT doing ok Medications Medication SIG (Take, Route, Frequency, Duration) Notes Start Date End Date Status buPROPion HCl ER (SR) 200 MG 1 tablet in the morning Oral Once a day for 90 days Active Citalopram Hydrobromide 40 MG 1 tablet Oral Once a day for 90 days Active COSENTYX PEN 300 MG/2 PENS (150 MG/ML) SUBCUTANEOUS *Reorder from [employer] for eRx and Interaction Alerts* 09/02/2023 Active OLANZapine 10 MG TAKE 1 TABLET BY MOUTH AT BEDTIME for 90 Active OLANZapine 10 MG 1 tablet Orally bedtime for 90 days Active Naproxen 500 MG Oral 09/02/2023 Act artur Clobetasol Propionate 0.05 % External 09/02/2023 Active Folic Acid 1 MG Oral 09/02/2023 Act artur Hydrocortisone 2.50% External 09/02/2023 Active Calcipotriene 0.005 % External 09/02/2023 Active Venlafaxine HCl ER 37.5 MG TAKE 1 CAPSULE BY MOUTH DAILY WITH FOOD Oral Once a day for 90 days Active Cholecalciferol 25 MCG (1000 UT) Oral 09/02/2023 Active Melatonin 3 MG Oral 09/02/2023 Acti ve AFLURIA QD 2019- (36 MOS UP)(PF)60 MCG (15 MCG X4)/0.5 ML IM SYRINGE *Reorder from [employer] for eRx and Interaction Alerts* 09/02/2023 Active Ketoconazole 2% External 09/02/2023 Act artur Social History Sex Assigned At : Social History Observation Description Sex Assigned At Male Vital Signs Blood pressure systolic 129 mm Hg 05/26/20 24 Blood pressure diastolic 84 mm Hg 024 Heart Rate 80 /min 05/26/2024 Respiratory Rate 17 /min 05/26/2024 Height 67.00 in 05/26/2024 Height-cm 170.18 cm 05/26/2024 Encounters Encounter Location Date Provider Diagnosis [facility] [employer] [address] [facility] [address] [place] [phone] 05/26/2024 Christa Rankin Bipolar disorder, current episode depressed, mild F31.31 ; Generalized anxiety disorder F41.1 ; Insomnia due to other mental disorder F51.05 and Autistic disorder F84.0 Assessments Encounter Date Diagnosis (ICD Code) Assessment Notes Treatment Notes Treatment Clinical Notes Section Notes 05/26/2024 Bipolar disorder, current episode depressed, mild (ICD-10 - F31.31) 1. Bipolar affective disorder, current episode depression - Neurologist for migraines schedule 2023 refer to therapy Zyprexa 10 mg at bedtime Effexor ER 37.5 mg in am - depression and anxiety- educated on rx and monitor B/P Wellbutrin SR 200 mg twice a day AIMS=0 12/08/20 AIMS=0 03/05/22 AIMS= 0 06/03/23 AIMS= 0 05/26/24 educated on all medications, benefits, side effects [...] Autistic disorder -stable 5. Long-term drug therapy 05/26/2024 Generalized anxiety disorder (ICD-10 - F41.1) 1. Bipolar affective disorder, current episode depression - Neurologist for migraines schedule 2023 refer to therapy Zyprexa 10 mg at bedtime Effexor ER 37.5 mg in am - depression and anxiety- educated on rx and monitor B/P Wellbutrin SR 200 mg twice a day AIMS=0 12/08/20 AIMS=0 03/05/22 AIMS= 0 06/03/23 AIMS= 0 05/26/24 educated on all medications, benefits, side effects [...] Autistic disorder -stable 5. Long-term drug therapy 05/26/2024 Insomnia due to other mental disorder (ICD-10 - F51.05) 1. Bipolar affective disorder, current episode depression - Neurologist for migraines schedule 2023 refer to therapy Zyprexa 10 mg at bedtime Effexor ER 37.5 mg in am - depression and anxiety- educated on rx and monitor B/P Wellbutrin SR 200 mg twice a day AIMS=0 12/08/20 AIMS=0 03/05/22 AIMS= 0 06/03/23 AIMS= 0 05/26/24 educated on all medications, benefits, side effects [...] Autistic disorder -stable 5. Long-term drug therapy 05/26/2024 Autistic disorder (ICD-10 - F84.0) 1. Bipolar affective disorder, current episode depression - Neurologist for migraines schedule 2023 refer to therapy Zyprexa 10 mg at bedtime Effexor ER 37.5 mg in am - depression and anxiety- educated on rx and monitor B/P Wellbutrin SR 200 mg twice a day AIMS=0 12/08/20 AIMS=0 03/05/22 AIMS= 0 06/03/23 AIMS= 0 05/26/24 educated on all medications, benefits, side effects [...] Name Sig Start Date Stop Date Notes buPROPion HCl ER (SR) 200 MG 1 tablet in the morning Oral Once a day for 90 days Citalopram Hydrobromide 40 MG 1 tablet O ral Once a day for 90 days OLANZapine 10 MG 1 tablet Orally bedt wilfredo for 90 days Venlafaxine HCl ER 37.5 MG TAKE 1 CAPSUL E BY MOUTH DAILY WITH FOOD Oral Once a day for 90 days Next Appt Details Follow Up: 3 Months, Reason: F/U RX Provider Name:Christa Rankin , 09/22/2024 09:15:00 AM, [address] [place] [address] [address], [facility] [address], [place], [phone], Progress Notes * CESAR SPEAROB: 7 (28 yo M)Acc No.[id number]:05/26/2024 Patient:?JEAN SPEAR Provider:?CHRISTA RANKIN PMHNP :1995???Age:28 Y???Sex:Male Osiel e:05/26/2024 Phone: Address:[address] [place], [place] [phone] Pcp:Maldonado ARAUZ MD Subjective: * Chief Complaints: * ???1. Doing ok. * HPI: ???History of Presenting Problem:? Follow up Bipolar depression, NELA, Insomnia, chronic report I been doing ok I feel winter months and I have SAD and been little rough I have hang out with friends and helped me and was nice and had amazing time wiht them, I been down and mild bouts of depression here and there, yesterday was some with cold and snow not bad, and no SI or thought sharm to self I cried yesterday with emotional and today is better, I feel a lot better, and I feel 85% more myself,??I am not in therapy and would like to see therapy I feel will help me, no hopeless or helpless today, ?have? 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 went to sleep provider and said I have insomnia, my problem is snore loud and wake self up and hard ot go back to sleep in night, I go to bed 8 pm and woke up 1 am, and nap in day several hours,?sleep?average 8 hours, and no SI/HI no passive thoughts no plans or intent, I been taking arthritis rx as prescribed and pain with cold weather, I am moving around and excise when out bed also, ?I had injection and due this week or next week and last 4 weeks, I get migraines and journal them for neurologist, none since several weeks now, not feeling anxious, restless, or fidgety, no irritable, no aggression or agitation, no behaviors, no psychosis, no delusions no charli, no paranoia, no delusions,? concentrate and focus very good, I play video games, motivated and interest to do a lot things I enjoy, no SI/HI, I have no abnormal movement d/o and none noted, everything been going good, rx is doing good no s/e? sister x2 dad and sister bipolar and anxiety one sister austric and does not talk denies SI/HI no plans or intent no thoughts harm to self or others, no past attempts, ETOH denies smoking denies labs recently with RA provider? drugs denies seen derm and will see RA 09/06/2021. ???[place]-Suicide Severity Rating Scale:?Suicide Risk (CSRS-screener)?in the past [...] provider dxn 2021. ?He reports?dry skin;?psoriasis see switchman /RA provider skin d/o improving with rx. He reports?frequent or severe headaches and migraines on RX ?no loss of consciousness, no weakness, no numbness, no seizures, no dizziness, no tremor, no gait dysfunction, and no paralysis;?see neurologist. He reports mild depression,? sleep disturbances (hx hyposomnia), mild anxiety, and no memory loss?but reports no alcohol abuse, no hallucinations, no suicidal thoughts, no mood swings, and no agitation. He reports? fatigue. ?He reports no chest pain, no [...] depression and suicidal thoughts 02/14 . * Medications:?Taking Cholecal ciferol 25 MCG (1000 UT) Capsule Oral , Taking Melatonin 3 MG Tablet Oral , Taking AFLURIA QD 2019- (36 MOS UP)(PF)60 MCG (15 MCG X4)/0.5 ML IM SYRINGE , Notes to Pharmacist: *Reorder from [employer] for eRx and Interaction Alerts*, Taking Ketoconazole 2% Shampoo External , Taking Calcipotriene 0.005 % Cream External , Taking Naproxen 500 MG Tablet Oral , Taking Clobetasol Propionate 0.05 % Ointment External , Taking Folic Acid 1 MG Tablet Oral , Taking Hydrocortisone 2.50% Cream External , Taking COSENTYX PEN 300 MG/2 PENS (150 MG/ML) SUBCUTANEOUS , Notes to Pharmacist: *Reorder from [employer] for eRx and Interaction Alerts*, Taking buPROPion HCl ER (SR) 200 MG Tablet Extended Release 12 Hour 1 tablet in the morning Oral Once a day , Taking Citalopram Hydrobromide 40 MG Tablet 1 tablet Oral Once a day , Taking Venlafaxine HCl ER 37.5 MG Capsule Extended Release 24 Hour TAKE 1 CAPSULE BY MOUTH DAILY WITH FOOD Oral Once a day , Taking OLANZapine 10 MG Tablet TAKE 1 TABLET BY MOUTH AT BEDTIME , Medication List reviewed and reconciled with the patient * Allergies:?N.K.D.A. Objective: * Vitals:?BP:129/84mm Hg, HR:8 0/min, RR:17/min, Ht: 67.00 in, Ht-cm: 170.18 cm. * Examination: ???Psychiatry: ?Appearance:?well-groomed, well-nourished, appears stated [...] affective disorde r, current episode depression - Neurologist for migraines schedule 2023 refer to therapy Zyprexa 10 mg at bedtime Effexor ER 37.5 mg in am - depression and anxiety- educated on rx and monitor B/P Wellbutrin SR 200 mg twice a day AIMS=0 12/08/20 AIMS=0 03/05/22 AIMS= 0 06/03/23 AIMS=? 0 05/26/24 educated on all medications, benefits, side effects [...] days, 90 Capsule, Refills 0.?? * Procedure Codes:?G2211 VISIT COMPLEXITY INHERENT TO ONGOING CARE RELATED TO A PATIENT'S SINGLE, SERIOUS CONDITION OR A COMPLEX CONDITION, 96927 PSYCL/NRPSYC TST AUTO RESULT * Follow Up:?3 Months (Reason: F/U RX) * Billing Information: * Visit Code:? 32525 OFFICE OUTPATIENT VISIT 25 MINUTES DETAILED HISTORY AND EXAM/MODERATE MEDICAL DECISION MAKING. * Procedure Codes:? G2211 VISIT COMPLEXITY INHERENT TO ONGOING CARE RELATED TO A PATIENT'S SINGLE, SERIOUS CONDITION OR A COMPLEX CONDITION. 84861 PSYCL/NRPSYC TST AUTO RESULT. * OILER Sign off status: Completed true * Provider:?CHRISTA RANKIN HNP Date:? Generated for Irma milian/Aryan/Sam on:?07/15/2024 06:38 PM MILL OILER History and Physical Notes * HPI (History of Present Illness) Category Sub-Category Detail Notes Category Not es History of Presenting Problem Follow up Bipolar depression, NELA, Insomnia, chronic report I been doing ok I feel winter months and I have SAD and been little rough I have hang out with friends and helped me and was nice and had amazing time wiht them, I been down and mild bouts of depression here and there, yesterday was some with cold and snow not bad, and no SI or thought sharm to self I cried yesterday with emotional and today is better, I feel a lot better, and I feel 85% more myself, I am not in therapy and would like to see therapy I feel will help me, no hopeless or helpless today, have 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 went to sleep provider and said I have insomnia, my problem is snore loud and wake self up and hard ot go back to sleep in night, I go to bed 8 pm and woke up 1 am, and nap in day several hours, sleep average 8 hours, and no SI/HI no passive thoughts no plans or intent, I been taking arthritis rx as prescribed and pain with cold weather, I am moving around and excise when out bed also, I had injection and due this week or next week and last 4 weeks, I get migraines and journal them for neurologist, none since several weeks now, not feeling anxious, restless, or fidgety, no irritable, no aggression or agitation, no behaviors, no psychosis, no delusions no charli, no paranoia, no delusions, concentrate and focus very good, I play video games, motivated and interest to do a lot things I enjoy, no SI/HI, I have no abnormal movement d/o and none noted, everything been going good, rx is doing good no s/e sister x2 dad and sister bipolar and anxiety one sister austric and does not talk denies SI/HI no plans or intent no thoughts harm to self or others, no past attempts, ETOH denies smoking denies labs recently with RA provider drugs denies seen derm and will see RA 09/06/2021 Depression screening PHQ-9 Little inte rest or pleasure in doing things: Not at [...] Total: (0 to 4) No Anx iety [place]-Suicide Severity Rating Scale Suicide Risk (CSRS-screener) in [...]
--- OUTSIDE RECORDS SUMMARY | 2024-07-15 18:39 | XMS_ITS | Encounter Summary ---
Author Organization [facility] Health Address [address] [place] [address] Care Team Providers Care Regional Operations Manager Name Role Phone Unavailable Primary Care Provider Unavailabl e Encounter Details Date Type Department Care Team (Late Contact Info) Description 07/07/2021 Orders Only [facility] [address] [place] [address] Kirk Sue MD [address] [place] [address] High risk medications (not anticoagulants) long-term use [...] Visit [facility] - Rheumatology [address] [place] [address], [place] [phone] Paulino Youngblood MD [address] [place] [address] [place] [phone] 11/30/2024 3:00 PM CDT Office Visit [facility] - ENT [address] [place] [address], [place] [phone] Froilan Monae MD [address] [place] [address] [address] [place] [address] 02/15/2025 10:00 AM CDT Office Visit [facility] - Internal Med [address] [place] [address], [place] [phone] Richard Chacon III, MD [address] [place] [address] [address] [place] [phone] documented as of this encounter Procedures Procedure Name Priority Date/Time Associated Diagnosis Comments CBC W AUTO DIFFERENTIAL Routine 07/10/2021 12:07 PM [employer] High risk medications (not anticoagulants) long-term use COMPREHENSIVE METABOLIC PANEL Routine 07/10/2021 12:07 PM [employer] High risk medications (not anticoagulants) long-term use documented in this encounter Results * (ABNORMAL) COMPREHENSIVE METABOLIC PANEL (07/10/2021 12:07 PM [employer]) Glucose 88 65 - 139 mg/dL [facility] Comment: ? Non-fasting reference interval BUN 16 7 - 25 mg/dL [facility] Creatinine 1.05 0.60 - 1.35 mg/dL [facility] eGFR by MDRD 99 > OR = 60 mL/min/1. 73m2 [facility] eGFR by MDRD 115 > OR = 60 mL/min/1. 73m2 [facility] BUN/Creatinine Ratio NOT APPLICABLE 6 - 22 (calc) [facility] Sodium 141 135 - 146 mmol/L [facility] Potassium 4.1 3.5 - 5.3 mmol/L [facility] Chloride 107 98 - 110 mmol/L [facility] CO2 29 20 - 32 mmol/L [facility] Calcium 9.6 8.6 - 10.3 mg/dL [facility] Protein Total 7.0 6.1 - 8.1 g/dL [facility] Albumin 4.6 3.6 - 5.1 g/dL [facility] Globulin Total 2.4 1.9 - 3.7 g/dL (calc) [facility] Albumin/Globuli n Ratio 1.9 1.0 - 2.5 (calc) [facility] Bilirubin Total 0.3 0.2 - 1.2 mg/dL [facility] Alkaline Phosphatase 120 36 - 130 U/L [facility] AST 18 10 - 40 U/L [facility] ALT 47(H) 9 - 46 U/L [facility] Comment: Test Performed at: [facility] [place], [place] ??[phone] SIRIA AGUILAR DO,MPH Blood BLOOD SPECIMEN / Unknown 07/10/2021 12:07 PM [employer] 07/10/2021 12:07 PM [employer] Estee Peck MD LAB [facility] [address] [place] [address] * CBC WITH DIFFERENTIAL (07/10/2021 12:07 PM [employer]) White Blood Cell Count 7.2 3.8 - 10.8 Thousand/u L [facility] RBC 4.84 4.20 - 5.80 Million/uL [facility] Hemoglobin 13.5 13.2 - 17.1 g/dL [facility] Hematocrit 41.5 38.5 - 50.0 % [facility] MCV 85.7 80.0 - 100.0 fL [facility] MCH 27.9 27.0 - 33.0 pg [facility] MCHC 32.5 32.0 - 36.0 g/dL [facility] RDW 13.3 11.0 - 15.0 % [facility] Platelet Count 222 140 - 400 Thousand/u L [facility] MPV 10.3 7.5 - 12.5 fL [facility] Neutrophil Absolute 5242 1500 - 7800 cells/uL [facility] Lymphocytes Absolute 1519 850 - 3900 cells/uL [facility] Absolute Monocytes 317 200 - 950 cells/uL [facility] Eosinophils Absolute 79 15 - 500 cells/uL [facility] Basophils Absolute 43 0 - 200 cells/uL [facility] Granulocytes % 72.8 % [facility] Lymphocytes % 21.1 % [facility] Monocytes % 4.4 % [facility] Eosinophils % 1.1 % [facility] Basophils % 0.6 % [facility] Comment: REPORT COMMENT: FASTING:NO Test Performed at: [facility] ??[phone] SIRIA AGUILAR DO,MPH Blood BLOOD SPECIMEN / Unknown 07/10/2021 12:07 PM [employer] 07/10/2021 12:07 PM [employer] Estee Peck MD LAB - HEMATOLOGY ORD ERABLES Performing Organization Address City/State/[facility] Co de Phone Number [facility] [address] [place] [address] documented in this encounter Visit Diagnoses Diagnosis High risk medications (not anticoagulants) long-term use Encounter for long-term (current) use of other medications documented in this encounter
--- OUTSIDE RECORDS SUMMARY | 2024-07-15 18:39 | XMS_ITS | Encounter Summary ---
Author Organization [facility] Health Address [address] [facility] [place] [address] Care Team Providers Care Preparation Department Supervisor Name Role Phone Unavailable Primary Care Provider Unavailabl e Encounter Details Date Type Department Care Team (Latest Contact Info) Description 04/03/2021 11:55 AM CDT - 04/03/2021 11:59 PM CDT Hospital Encounter [facility] [address] [place] [phone] Discharge Disposition: Home or Self Care Social [...] AM CDT documented as of this encounter Medications at Time of Discharge Medication Sig Dispensed Refills Start Date End Date buPROPion SR 12hr (WELLBUTRIN SR) 200 MG tablet Take 1 (one) tablet by mouth 2 times daily 03/06/2021 citalopram (CELEXA) 40 MG tablet TAKE 1 TABLET BY MOUTH EVERY DAY IN THE MORNING 03/08/2021 olanzapine (ZYPREXA) 10 MG tablet Take 1 (one) tablet by mouth once daily calcipotriene (DOVONEX) 0.005 % creamIndications:Psoria sis Apply to affected area 2 times daily 60 g 1 04/03/2021 10/16/2021 Cholecalciferol 25 MCG (1000 UT)Indications:Vitamin D deficiency Take 1 (one) tablet by mouth once daily for 90 days 90 tablet 4 04/04/2021 07/03/2021 D3-50 1.25 MG (65554 UT) TAKE 1 CAPSULE BY MOUTH ONCE WEEKLY IN THE MORNING 03/26/2021 04/04/2021 hydrocortisone (HYTONE) 2.5 % creamIndications:Psoria sis Apply to affected area 2 times daily for 14 days 20 g 04/03/2021 04/17/2021 OLANZapine (ZYPREXA) 2.5 MG tablet TAKE 1 TABLET BY MOUTH EVERY DAY IN THE MORNING 03/06/2021 06/06/2022 documented as of this encounter Progress Notes * Richard Chacon III, MD - 04/03/2021 11:59 PM CDT Pts labs are WNL. Vit D noted to be normal. Pt should stop ergocalciferol and start [id number] daily. Rx sent to pharmacy [facility] documented in this encounter Plan of Treatment Upcoming Encounters Date Type Department Care Team (Late st Contact Info) Description 10/21/2024 1:30 PM CDT Office Visit [facility] - Rheumatology [address] [place] [phone] Paulino Youngblood MD [address] [place] [address] [place] [phone] 11/30/2024 3:00 PM CDT Office Visit [facility] - ENT [address] [place] [phone] Froilan Monae MD [address] [place] [address] [place] [address] 02/15/2025 10:00 AM CDT Office Visit [facility] - Internal Med [address] [facility], [place] [phone] Richard Chacon III, MD [address] [facility] 2[address] [place] [phone] documented as of this encounter Procedures Procedure Name Priority Date/Time Associated Diagnosis Comments HEMOGLOBIN A1C Routine 04/03/2021 12:40 PM CDT Obesity, unspecified classification, unspecified obesity type, unspecified whether serious comorbidity present VITAMIN D 25-HYDROXY Routine 04/03/2021 12:40 PM CDT Vitamin D deficiency COMPREHENSIVE METABOLIC PANEL Routine 04/03/2021 12:40 PM CDT Obesity, unspecified classification, unspecified obesity type, unspecified whether serious comorbidity present LIPID PROFILE Routine 04/03/2021 12:40 PM CDT Obesity, unspecified classification, unspecified obesity type, unspecified whether serious comorbidity present documented in this encounter Results * VITAMIN D 25-HYDROXY (04/03/2021 12:40 PM CDT) [facility] Vitamin D, 25 Hydroxy 52.0 30.0 - 80.0 ng/mL 04/03/2021 2:31 PM CDT [facility] Comment: The recommendations for 25-Hydroxy Vitamin D [...] Reference: ?The Endocrine Society Clinical Practice Guidelines. 2011 ? Blood BLOOD SPECIMEN / Unknown Lab Venipuncture / Unknown 04/03/2021 12:40 PM CDT 04/03/2021 1:41 PM CDT Richard Chacon III, MD LAB - CHEMISTRY O RDERABLES [facility] [address] [place] [address], [facility] [phone] * (ABNORMAL) COMPREHENSIVE METABOLIC PANEL (04/03/2021 12:40 PM CDT) BUN 15 7 - 26 mg/dL 04/03/2021 2:13 PM [facility] Creatinine 1.06 0.71 - 1.16 mg/dL 04/03/2021 2:13 PM [facility] Sodium 143 136 - 145 mmol/L 04/03/2021 2:13 PM [facility] Potassium 4.2 3.5 - 4.5 mmol/L 04/03/2021 2:13 PM [facility] Chloride 109(H) 98 - 107 mmol/L 04/03/2021 2:13 PM [facility] CO2 25 22 - 29 mmol/L 04/03/2021 2:13 PM [facility] Glucose 95 70 - 115 mg/dL 04/03/2021 2:13 PM [facility] Calcium 9.7 8.4 - 10.2 mg/dL 04/03/2021 2:13 PM [facility] Protein Total 7.0 6.0 - 8.3 g/dL 04/03/2021 2:13 PM [facility] Albumin 4.0 3.4 - 5.0 g/dL 04/03/2021 2:13 PM [facility] Bilirubin Total 0.3 0.2 - 1.2 mg/dL 04/03/2021 2:13 PM [facility] Alkaline Phosphatase 128 40 - 150 U/L 04/03/2021 2:13 PM [facility] ALT 42 5 - 55 U/L 04/03/2021 2:13 PM [facility] AST 14 5 - 34 U/L 04/03/2021 2:13 PM [facility] Anion Gap 13 8 - 18 04/03/2021 2:13 PM [facility] BUN/Creatinine Ratio 14 7 - 23 04/03/2021 2:13 PM [facility] Osmolality Calculated 297 270 - 300 mOsm/kg 04/03/2021 2:13 PM [facility] Albumin/Globulin Ratio 1.3 1.1 - 2.3 04/03/2021 2:13 PM [facility] eGFR by CKD-EPI >90 >=90 mL/min/1.7 3 m2 04/03/2021 2:13 PM [facility] Blood BLOOD SPECIMEN / Unknown Lab Venipuncture / Unknown 04/03/2021 12:40 PM CDT 04/03/2021 1:41 PM CDT Richard Chacon III, MD LAB - CHEMISTRY O RDERABLES Performing Organization Address [facility] Co de Phone Number [facility] [address] [place] [address], [facility] [phone] * (ABNORMAL) LIPID PROFILE (04/03/2021 12:40 PM CDT) Cholesterol Total 141 <200 mg/dL 04/03/2021 2:13 PM [facility] HDL 27(L) >40 mg/dL 04/03/2021 2:13 PM [facility] Comment: ATP III Classification of HDL Cholesterol: ? <40 mg/dL: ??Considered a major risk factor. ? >60 mg/dL: ??Considered a negative risk factor. ? LDL Calculated 85 <100 mg/dL 04/03/2021 2:13 PM [facility] Comment: ATP III Classification of LDL Cholesterol: ?<100 mg/dL: ??Optimal ? 100 - 129 mg/dL: ??Near Optimal/Above Optimal ? 130 - 159 mg/dL: ??Borderline High ? 160 - 189 mg/dL: ??High ?>190 mg/dL: ??Very High ? Triglycerides 143 <150 mg/dL 04/03/2021 2:13 PM CDT [facility] Comment: ATP III Classification of Triglycerides: ?<150 mg/dL: ??Normal ? 150 - 199 mg/dL: ??Borderline High ? 200 - 400 mg/dL: ??High ?>500 mg/dL: ??Very High Blood BLOOD SPECIMEN / Unknown Lab Venipuncture / Unknown 04/03/2021 12:40 PM CDT 04/03/2021 1:41 PM CDT Richard Chacon III, MD LAB - CHEMISTRY O RDERABLES Performing Organization Address [facility]/State/[facility] Co de Phone Number [facility] [address] [place] [phone], [facility] [phone] * HEMOGLOBIN A1C (04/03/2021 12:40 PM CDT) Pathologist [facility] Hemoglobin A1c 5.3 4.4 - 6.3 % 04/03/2021 2:46 PM CDT [facility] Estimated Average Glucose 105 mg/dL 04/03/2021 2:46 PM CDT [facility] Comment: HbA1c Interpretation: Treatment target values recommended by ADA and other clinical organizations should be used to evaluate metabolic control in patients. Treatment Target Values: Normal : < 5.7% Pre-diabetes: 5.7-6.4% Diabetes: Equal to or greater than 6.5% Reference: [place] Diabetes Association Standards of Care in Diabetes -2014 In patients 70 years and older consider HbA1c target range of 7.0-7.5% Reference: ??Diabetes Mellitus in Older People: Position Statement on behalf of the International Association of Gerontology and Geriatrics (IAGG), the Diabetes Working Republican for Older People (EDWPOP), and the International Task Force of Experts in Diabetes. ??Alberto Everett et al. J [place] Medical Directors Association. 2012 Test results diagnostic of diabetes should be repeated for confirmation. The Sebia Capillary 2 assay for the measurement of HbA1c is a National Glycohemoglobin Standardization Program (NGSP)certified method. Blood BLOOD SPECIMEN / Unknown Lab Venipuncture / Unknown 04/03/2021 12:40 PM CDT 04/03/2021 1:41 PM CDT Richard Chacon III, MD LAB - CHEMISTRY O RDERABLES Performing Organization Address [facility]/State/[facility] Co de Phone Number [address] [address], [facility] [phone] documented in this encounter Visit Diagnoses Diagnosis Obesity, unspecified classification, unspecified obesity type, unspecified whether serious comorbidity present Vitamin D deficiency documented in this encounter
--- OUTSIDE RECORDS SUMMARY | 2024-07-15 18:39 | XMS_ITS | Encounter Summary ---
Author Organization [facility] Health Address [address] [facility] [place] [address] Care Team Providers Care Delivery Room Clerk Name Role Phone Unavailable Primary Care Provider Unavailabl e Reason for Visit * Reason Comments Establish Care Encounter Details Date Type Department Care Team (Late st Contact Info) Description 04/03/2021 10:50 AM CDT Office Visit [facility] General Internal Medicine [address] [place] [address], [place] [phone] Richard Chacon III, MD [address] [place] [phone] Obesity, unspecified classification, unspecified obesity type, unspecified whether serious comorbidity present (Primary Dx); Need for influenza vaccination; Vitamin D deficiency; Psoriasis; Routine health maintenance; Encounter for immunization Social History Tobacco Use Types Packs/Day Years [...] AM CDT documented as of this encounter Last Filed Vital Signs Vital Sign Reading Time Taken Comments Blood Pressure 140/82 04/03/2021 10:45 AM CDT Pulse 91 04/03/2021 10:45 AM CDT Temperature 37.1 ??C (98.7 ??F) 04/03/2021 10:45 AM C DT Respiratory Rate - - Oxygen Saturation 98% 04/03/2021 10:45 AM CDT Inhaled Oxygen Concentration - - Weight 110 kg (242 lb 9.6 oz) 04/03/2021 10:45 A M CDT Height 168.9 cm (5' 6.5 ) 04/03/2021 10:45 AM CD T Body Mass Index 38.57 04/03/2021 10:45 AM CDT documented in this encounter Patient Instructions * Patient Instructions* Richard Chacon III, MD - 04/03/2021 11:21 AM CDT Images from the original note were not included. documented in this encounter Progress Notes * Richard Chacon III, MD - 04/03/2021 11:10 AM CDT I have verified the documentation of the medical student including all history, exam, and medical decision-making details. I have personally performed a physical exam and have personally reviewed thedata to support my medical decision-making as outlined in the medical student???s note, and I arrive independently at the same conclusion. In addition I note: #psoriasis -rx calcipotriene daily and 2 week course triamcinolone. -derm referal #obesity, related to lifestyle and also obesogenic meds (olanzapine) -check hbA1, lipid profile, cmp -encourage lifestyle modification -[employer] handout -encourage aerobic exercise daily #h/o vit D deficiency -check vit D -on ergo, consider switching to cholecalciferol #h/o migraine -follows with neuro -on elavil, reasonably well controlled it sounds #bpd -follows with psych -olanzapine 10, citalopram 40, bupropion #RHM -give flu and tdap vaccine 04/03/2021 Shirin CHACON III, MD * Elliott Pena - 04/03/2021 10:50 AM CDT Images from the original note were not included. [facility] General Internal Medicine New Patient Note CC: Infection on R knee that won't heal. Chief Complaint Patient presents with ??? Establish Care History of Present Illness: Manoj Horner is a 25 year old man with PMH of BPD1, autism, and psoriasis presenting to [facility] clinic to establish care and for an injury to his R knee that is not responding to abx ointment and peroxide. #BPD1 #Autism Sees Psychiatrist, Dr. Hernandez [place] he had autism at 9 years old. -BPD1, behaviorial issues back in elementary -Take olanzapine 2.5 mg qAM and 10 mg qHs, Citalopram 40 mg qAM, and Buproprion SR 200 mg BID -Well controlled -Previously tried recipal (unsure generic name). No longer taking sertraline. -10 years old hospitalized, unsure what for, before he'd switched to [employer] and started to see behavioral health. -Every now and again will feel kindof depressed, has group of people that support him -No self harm in the past. No thoughts of harming self or others #Migraines Neurologist-Dr. Urbano -Started 5 years ago -Now happen not as often, 1-2 x everty 3 months. -Takes amitriptiliine 25 mg qhs #Psoriasis -use creams, doesn't help much -Moisturizer with vitamin E #R Knee #Psoriasis Couple months peroxide and abx ointment without improvement #Vit D deficiency -50,000 Units 1x per week for 3 months Past Medical History: Reviewed and updated in Epic History tab Past Surgical History: Reviewed and updated in Epic History tab Family History: Reviewed and updated in Epic History tab Social History: Reviewed and updated in Epic History tab Medications: Reviewed and updated in Epic Medications tab Allergies: Reviewed and updated in Epic Allergies tab Review of Systems: Review of Systems Constitutional: Negative for chills and fever. Eyes: Negative. Respiratory: Negative for cough and shortness of breath. Cardiovascular: Negative for chest pain and leg swelling. Gastrointestinal: Negative for abdominal pain, constipation and diarrhea. Skin: Positive for itching and rash. Psychiatric/Behavioral: Negative for depression and suicidal ideas. Physical Exam: There were no vitals taken for this visit. Physical Exam Constitutional: Appearance: Normal appearance. He is obese. HENT: Head: Normocephalic and atraumatic. Eyes: Conjunctiva/sclera: Conjunctivae normal. Cardiovascular: Rate and Rhythm: Normal rate and regular rhythm. Pulses: Normal pulses. Heart sounds: Normal heart sounds. Pulmonary: Effort: Pulmonary effort is normal. Breath sounds: Normal breath sounds. Abdominal: Palpations: Abdomen is soft. Tenderness: There is no abdominal tenderness. Musculoskeletal: Right lower leg: No edema. Left lower leg: No edema. Skin: General: Skin is warm and dry. Neurological: Mental Status: He is alert. Psychiatric: Mood and Affect: Mood normal. Labs: Personally reviewed. Pertinent for: NA Imaging/Other diagnostic testing: Personally reviewed. Pertinent for: NA Assessment & Plan: #BPD1 #Autism Sees Psychiatrist, Dr. Hernandez Well controlled -Continue olanzapine 2.5 mg qAM and 10 mg qHs, Citalopram 40 mg qAM, and Buproprion SR 200 mg BID #Migraines Neurologist-Dr. Urbano -Well controlled -Continue amitriptiliine 25 mg qhs #R Knee #Psoriasis -Discontinue abx ointment, not infectious -Couple months peroxide and abx ointment without improvement -2.5% hydrocortisone cream and calciporiene 0.005% both BID for 2 weeks -Derm referral #Vit D deficiency -Continue 50,000 Units 1x per week for now -Recheck Vit D levels Preventative Care/Health Maintenance: End of life planning: Immunizations - Tdap: Today - Influenza: today - PPSV23: na - PCV13: na - Zoster: na - HPV: next visit Colorectal cancer screening: NA Lung cancer screening: NA HIV, Hep C: next visit Lipid screening: today DM screening: today Depression screening: PHQ9=0 Male specific HCM Prostate cancer screening discussion: NA AAA screen: NA Patient discussed with attending physician, Dr. Chacon, who agrees with my assessment and plan. Return to clinic in 6 months to 1 year. Elliott Pena 04/03/2021 10:39 AM documented in this encounter Plan of Treatment Upcoming Encounters Date Type Department Care Team (Late st Contact Info) Description 10/21/2024 1:30 PM CDT Office Visit [facility] - Rheumatology [address] [place] [phone] Paulino Youngblood MD [address] [place] [address] [place] [phone] 11/30/2024 3:00 PM CDT Office Visit [facility] - ENT [address] [place] [phone] Froilan Monae MD [address] [place] [address] [place] [address] 02/15/2025 10:00 AM CDT Office Visit [facility] - Internal Med [address] [place] [phone] Richard Chacon III, MD [address] [place] [address] [place] [phone] documented as of this encounter Results * VITAMIN D 25-HYDROXY (04/03/2021 12:40 PM CDT) [facility] Signature Vitamin D, 25 Hydroxy 52.0 30.0 - 80.0 ng/mL 04/03/2021 2:31 PM CDT [facility] Comment: The recommendations for 25-Hydroxy Vitamin [...] Chacon III, MD LAB - CHEMISTRY O RDERARADAMES Performing Organization Address City/State/[facility] Co de Phone Number [facility] [address] [place] [address], [facility] [phone] * (ABNORMAL) COMPREHENSIVE METABOLIC PANEL (04/03/2021 12:40 PM CDT) BUN 15 7 - 26 mg/dL 04/03/2021 2:13 PM [facility] Creatinine 1.06 0.71 - 1.16 mg/dL 04/03/2021 2:13 PM [facility] Sodium 143 136 - 145 mmol/L 04/03/2021 2:13 PM [facility] Potassium 4.2 3.5 - 4.5 mmol/L 04/03/2021 2:13 PM [facility] Chloride 109(H) 98 - 107 mmol/L 04/03/2021 2:13 PM [facility] CO2 25 22 - 29 mmol/L 04/03/2021 2:13 PM [facility] Glucose 95 70 - 115 mg/dL 04/03/2021 2:13 PM [facility] Calcium 9.7 8.4 - 10.2 mg/dL 04/03/2021 2:13 PM [facility] Protein Total 7.0 6.0 - 8.3 g/dL 04/03/2021 2:13 PM [facility] Albumin 4.0 3.4 - 5.0 g/dL 04/03/2021 2:13 PM [facility] Bilirubin Total 0.3 0.2 - 1.2 mg/dL 04/03/2021 2:13 PM [facility] Alkaline Phosphatase 128 40 - 150 U/L 04/03/2021 2:13 PM [facility] ALT 42 5 - 55 U/L 04/03/2021 2:13 PM [facility] AST 14 5 - 34 U/L 04/03/2021 2:13 PM [facility] Anion Gap 13 8 - 18 04/03/2021 2:13 PM [facility] BUN/Creatinine Ratio 14 7 - 23 04/03/2021 2:13 PM [facility] Osmolality Calculated 297 270 - 300 mOsm/kg 04/03/2021 2:13 PM [facility] Albumin/Globulin Ratio 1.3 1.1 - 2.3 04/03/2021 2:13 PM [facility] eGFR by CKD-EPI >90 >=90 mL/min/1.7 3 m2 04/03/2021 2:13 PM [facility] Blood BLOOD SPECIMEN / Unknown Lab Venipuncture / Unknown 04/03/2021 12:40 PM CDT 04/03/2021 1:41 PM T Richard Chacon III, MD LAB - CHEMISTRY O RDERABLES Performing Organization Address [facility]/State/[facility] Co de Phone Number [facility] [address] [place] [address], [facility] [phone] * (ABNORMAL) LIPID PROFILE (04/03/2021 12:40 PM CDT) Cholesterol Total 141 <200 mg/dL 04/03/2021 2:13 PM [facility] HDL 27(L) >40 mg/dL 04/03/2021 2:13 PM [facility] Comment: ATP III Classification of HDL Cholesterol: ? <40 mg/dL: ??Considered a major risk factor. ? >60 mg/dL: ??Considered a negative risk factor. ? LDL Calculated 85 <100 mg/dL 04/03/2021 2:13 PM CDT [facility] Comment: ATP III Classification of LDL Cholesterol: ?<100 mg/dL: ??Optimal ? 100 - 129 mg/dL: ??Near Optimal/Above Optimal ? 130 - 159 mg/dL: ??Borderline High ? 160 - 189 mg/dL: ??High ?>190 mg/dL: ??Very High ? Triglycerides 143 <150 mg/dL 04/03/2021 2:13 PM CDT [facility] Comment: ATP III Classification of Triglycerides: ?<150 mg/dL: ??Normal ? 150 - 199 mg/dL: ??Borderline High ? 200 - 400 mg/dL: ??High ?>500 mg/dL: ??Very High Blood BLOOD SPECIMEN / Unknown Lab Venipuncture / Unknown 04/03/2021 12:40 PM CDT 04/03/2021 1:41 PM CDT Richard Chacon III, MD LAB - CHEMISTRY O RDERABLES Performing Organization Address [facility]/State/[facility] Co de Phone Number [facility] [address] [place] [address], [facility] [phone] * HEMOGLOBIN A1C (04/03/2021 12:40 PM CDT) Pathologist [facility] Hemoglobin A1c 5.3 4.4 - 6.3 % 04/03/2021 2:46 PM CDT [facility] Estimated Average Glucose 105 mg/dL 04/03/2021 2:46 PM CDT [facility] Comment: HbA1c Interpretation: Treatment target values recommended by ADA and other clinical organizations should be used to evaluate metabolic control in patients. Treatment Target Values: Normal : < 5.7% Pre-diabetes: 5.7-6.4% Diabetes: Equal to or greater than 6.5% Reference: [place] Diabetes Association Standards of Care in Diabetes -2014 In patients 70 years and older consider HbA1c target range of 7.0-7.5% Reference: ??Diabetes Mellitus in Older People: Position Statement on behalf of the International Association of Gerontology and Geriatrics (IAGG), the Diabetes Working Libertarian for Older People (EDWPOP), and the International Task Force of Experts in Diabetes. ??Alberto Everett et al. J [place] Medical Directors Association. 2012 Test results diagnostic of diabetes should be repeated for confirmation. The Sebia Capillary 2 assay for the measurement of HbA1c is a National Glycohemoglobin Standardization Program (NGSP)certified method. Blood BLOOD SPECIMEN / Unknown Lab Venipuncture / Unknown 04/03/2021 12:40 PM CDT 04/03/2021 1:41 PM CDT Richard Chacon III, MD LAB - CHEMISTRY O RDERABLES Performing Organization Address City/State/[facility] Co de Phone Number [address] [phone], [facility] [phone] documented in this encounter Visit Diagnoses Diagnosis Obesity, unspecified classification, unspecified obesity type, unspecified whether serious comorbidity present- Primary Need for influenza vaccination Need for prophylactic vaccination and inoculation against influenza Vitamin D deficiency Psoriasis Other psoriasis Routine health maintenance Routine general medical examination at a health care facility Encounter for immunization Need for other specified prophylactic vaccination against single bacterial disease documented in this encounter
--- OUTSIDE RECORDS SUMMARY | 2024-07-15 18:39 | XMS_ITS | Encounter Summary ---
Author Organization [facility] Health Address [address] [place] [address] Care Team Providers Care Associate Merchant Name Role Phone Unavailable Primary Care Provider Unavailabl e Encounter Details Date Type Department Care Team (Late st Contact Info) Description 07/04/2021 Orders Only [facility] [address] [place] [address] Kirk Sue MD [address] [place] [address] High risk medications (not anticoagulants) long-term use [...] on file documented as of this encounter Progress Notes * Kirk Sue MD - 07/04/2021 6:26 PM CST Discussed phototherapy vs MTX w pt. Pts father is on MTX and they are familiar with this med. Want to pursue. Discussed avoiding alcohol while on this (pt hasn't drank since he broke up with his GF and can abstain while on MTX). Can do test dose after baseline labs, sent to [employer]. Kirk Sue MD [facility] Dermatology Resident PGY4 UCE RUNNER documented in this encounter Plan of Treatment Upcoming Encounters Date Type Department Care Team (Late st Contact Info) Description 10/21/2024 1:30 PM CDT Office Visit [facility] - Rheumatology [address] [place] [phone] Paulino Youngblood MD [address] [place] [address] DIV [place] [phone] 11/30/2024 3:00 PM CDT Office Visit [facility] - ENT [address] [place] [phone] Froialn Monae MD [address] [place] [address] DEPT [place] [address] 02/15/2025 10:00 AM CDT Office Visit [facility] - Internal Med [address] [place] [phone] Richard Chacon III, MD [address] [place] [address] [address] [place] [phone] Scheduled Orders Name Type Priority Associated Diagnoses Orde r Schedule CBC WITH DIFFERENTIAL Lab Routine High risk medications (not anticoagulants) long-term use Once weekly for 24 Occurrences starting 07/04/2021 until 08/04/2022, 6 completed COMPREHENSIVE METABOLIC PANEL Lab Routine High risk medications (not anticoagulants) long-term use Once weekly for 24 Occurrences starting 07/04/2021 until 08/04/2022, 6 completed documented as of this encounter Procedures Procedure Name Priority Date/Time Associated Diagnosis Comments HEPATITIS C AB W/RFLX TO HCV RNA QN PCR Routine 07/05/2021 11:11 AM PRODUCE RUNNER High risk medications (not anticoagulants) long-term use CBC W AUTO DIFFERENTIAL Routine 07/05/2021 11:11 AM PRODUCE RUNNER High risk medications (not anticoagulants) long-term use COMPREHENSIVE METABOLIC PANEL Routine 07/05/2021 11:11 AM PRODUCE RUNNER High risk medications (not anticoagulants) long-term use HEPATITIS B SURFACE ANTIBODY Routine 07/05/2021 11:11 AM PRODUCE RUNNER High risk medications (not anticoagulants) long-term use HEPATITIS B CORE ANTIBODY TOTAL Routine 07/05/2021 11:11 AM PRODUCE RUNNER High risk medications (not anticoagulants) long-term use HEPATITIS B SURFACE ANTIGEN W RFLX CONFIRMATION Routine 07/05/2021 11:11 AM PRODUCE RUNNER High risk medications (not anticoagulants) long-term use [...] 46 U/L [facility] Comment: Test Performed at: [facility] [address] [place], [place] ??[phone] SIRIA AGUILAR DO,MPH Blood BLOOD SPECIMEN / Unknown 12/06/2021 1:39 PM CDT 12/06/2021 1:41 PM CDT Estee Peck MD LAB - [facility] [address] [place] [address] * CBC WITH DIFFERENTIAL (12/06/2021 1:39 PM [...] 0.7 % [facility] Comment: Test Performed at: [employer] [facility] [address] [place], [place] ??[phone] SIRIA AGUILAR DO,MPH Blood BLOOD SPECIMEN / Unknown 12/06/2021 1:39 PM CDT 12/06/2021 1:41 PM CDT Estee Peck MD LAB - HEMATOLOGY ORD ERABLES [facility] [address] [place] [address] * COMPREHENSIVE METABOLIC PANEL (07/31/2021 11:22 AM PRODUCE RUNNER) [facility] Glucose 129 65 - 139 mg/dL [facility] Comment: ? Non-fasting reference interval BUN 14 7 - 25 mg/dL [facility] Creatinine 0.89 0.60 - 1.35 mg/dL [facility] eGFR by MDRD 120 > OR = 60 mL/min/1. 73m2 [facility] eGFR by MDRD 139 > OR = 60 mL/min/1. 73m2 [facility] BUN/Creatinine Ratio NOT APPLICABLE 6 - 22 (calc) [facility] Sodium 139 135 - 146 [...] 46 U/L [facility] Comment: Test Performed at: [facility] [address] ??[phone] SIRIA AGUILAR DO,MPH Blood BLOOD SPECIMEN / Unknown 07/31/2021 11:22 AM PRODUCE RUNNER 07/31/2021 11:23 AM PRODUCE RUNNER Estee Peck MD LAB - CHEMISTRY ALEENA HERNANDEZ [facility] [address] [place] [address] * (ABNORMAL) CBC WITH DIFFERENTIAL (07/31/2021 11:22 AM PRODUCE RUNNER) [facility] White Blood Cell Count 6.1 3.8 - [...] Comment: REPORT COMMENT: FASTING:NO Test Performed at: [address] [facility] [address] [place], [place] ??[phone] SIRIA AGUILAR DO,MPH Blood BLOOD SPECIMEN / Unknown 07/31/2021 11:22 AM PRODUCE RUNNER 07/31/2021 11:23 AM PRODUCE RUNNER Estee Peck MD LAB - HEMATOLOGY ORD ERABLES [facility] [address] [place] [address] * COMPREHENSIVE METABOLIC PANEL (07/24/2021 9:50 AM PRODUCE RUNNER) [facility] Glucose 102 65 - 139 mg/dL [facility] [...] 46 U/L [facility] Comment: Test Performed at: [employer] [facility] [address] [place] ??[phone] SIRIA AGUILAR DO,MPH Blood BLOOD SPECIMEN / Unknown 07/24/2021 9:50 AM PRODUCE RUNNER 07/24/2021 9:51 AM PRODUCE RUNNER Estee Peck MD LAB - CHEMISTRY ORDE [facility] Organization Address City/State/[facility] Co de Phone Number [facility] [address] [place] [address] * (ABNORMAL) CBC WITH DIFFERENTIAL (07/24/2021 9:50 AM PRODUCE RUNNER) White Blood Cell Count 5.7 3.8 - [...] Comment: REPORT COMMENT: FASTING:NO Test Performed at: [facility] [address] [place], [place] ??[phone] SIRIA AGUILAR DO,MPH Blood BLOOD SPECIMEN / Unknown 07/24/2021 9:50 AM PRODUCE RUNNER 07/24/2021 9:51 AM PRODUCE RUNNER Estee Peck MD LAB - HEMATOLOGY ORD ERABLES [facility] [address] [place] [address] * COMPREHENSIVE METABOLIC PANEL (07/17/2021 10:26 AM PRODUCE RUNNER) Glucose 94 65 - 139 mg/dL [facility] [...] 46 U/L [facility] Comment: Test Performed at: [employer] [facility] [address] [place], [place] ??[phone] SIRIA AGUILAR DO,MPH Blood BLOOD SPECIMEN / Unknown 07/17/2021 10:26 AM PRODUCE RUNNER 07/17/2021 10:27 AM PRODUCE RUNNER Estee Peck MD LAB - CHEMISTRY ORDE [facility] Performing Organization Address [facility]/ZIP Co de Phone Number [facility] [address] [place] [phone] * CBC WITH DIFFERENTIAL (07/17/2021 10:26 AM PRODUCE RUNNER) [facility] White Blood Cell Count 6.6 3.8 - [...] VARIFIED ALL INFO FASTING:NO Test Performed at: [facility] [address] ??[phone] SIRIA AGUILAR DO,MPH Blood BLOOD SPECIMEN / Unknown 07/17/2021 10:26 AM PRODUCE RUNNER 07/17/2021 10:27 AM PRODUCE RUNNER Estee Peck MD LAB - HEMATOLOGY ORD ERABLES Performing Organization Address [facility] Co de Phone Number [facility] [address] [place] [address] * (ABNORMAL) COMPREHENSIVE METABOLIC PANEL (07/10/2021 12:07 PM PRODUCE RUNNER) [facility] Glucose 88 65 - 139 mg/dL [facility] [...] 46 U/L [facility] Comment: Test Performed at: [facility] ??[phone] SIRIA AGUILAR DO,MPH Blood BLOOD SPECIMEN / Unknown 07/10/2021 12:07 PM PRODUCE RUNNER 07/10/2021 12:07 PM PRODUCE RUNNER Estee Peck MD LAB - CHEMISTRY ALEENA HERNANDEZ [facility] Organization Address City/State/ZIP Co de Phone Number [facility] [address] [place] [address] * CBC WITH DIFFERENTIAL (07/10/2021 12:07 PM PRODUCE RUNNER) White Blood Cell Count 7.2 3.8 - [...] Comment: REPORT COMMENT: FASTING:NO Test Performed at: [facility] [address] [place], [place] ??[phone] SIRIA AGUILAR DO,MPH Blood BLOOD SPECIMEN / Unknown 07/10/2021 12:07 PM PRODUCE RUNNER 07/10/2021 12:07 PM PRODUCE RUNNER Estee Peck MD LAB - HEMATOLOGY ORD ERABLES Performing Organization Address [facility] Co mo Phone Number [facility] [address] [place] [address] * HEPATITIS C AB W/RFLX TO HCV RNA QN PCR (07/05/2021 11:11 AM PRODUCE RUNNER) Hepatitis C Antibody NON-REACTI VE NON-REACT BRIAN [facility] Signal to Cut-Off 0.01 <1.00 [facility] Comment: HCV antibody was non-reactive. There is no laboratory evidence of HCV infection. In most cases, no further action is required. However, if recent HCV exposure is suspected, a test for HCV RNA (test code 48751) is suggested. For additional information please refer to http://education.Lingoing.InterStelNet/faq/TVQ84p4 (This link is being provided for informational/ educational purposes only.) REPORT COMMENT: FASTING:NO Test Performed at: [facility] [address] [place], [place] ??[phone] SIRIA AGUILAR DO,MPH Blood BLOOD SPECIMEN / Unknown 07/05/2021 11:11 AM PRODUCE RUNNER 07/05/2021 11:12 AM PRODUCE RUNNER Estee Peck MD LAB - CHEMISTRY ORDE [facility] Performing Organization Address [facility]/[place] [address] * HEPATITIS B SURFACE ANTIGEN W RFLX CONFIRMATION (07/05/2021 11:11 AM PRODUCE RUNNER) Hepatitis B Virus Surface Antigen NON-REACTI VE NON-REACT BRIAN [facility] Comment: Test Performed at: [facility] [address] [place], [place] ??[phone] SIRIA AGUILAR DO,MPH Blood BLOOD SPECIMEN / Unknown 07/05/2021 11:11 AM PRODUCE RUNNER 07/05/2021 11:12 AM PRODUCE RUNNER Estee Peck MD LAB - CHEMISTRY ALEENA HERNANDEZ Performing Organization Address [facility] [place] [address] * HEPATITIS B SURFACE ANTIBODY (07/05/2021 11:11 AM PRODUCE RUNNER) Hepatitis B Virus Surface Antibody NON-REACTI VE NON-REACT BRIAN [facility] Comment: Test Performed at: [facility] [address] [place], [place] ??[phone] SIRIA AGUILAR DO,MPH Blood BLOOD SPECIMEN / Unknown 07/05/2021 11:11 AM PRODUCE RUNNER 07/05/2021 11:12 AM PRODUCE RUNNER Estee Peck MD LAB - CHEMISTRY ALEENA HERNANDEZ Performing Organization Address [facility] [place] [address] * HEPATITIS B CORE ANTIBODY (07/05/2021 11:11 AM PRODUCE RUNNER) Hepatitis B Core Virus Antibody Total NON-REACTI VE NON-REACT BRIAN [facility] Comment: Test Performed at: [facility] [address] [facility], [place] ??[phone] SIRIA AGUILAR DO,MPH Blood BLOOD SPECIMEN / Unknown 07/05/2021 11:11 AM PRODUCE RUNNER 07/05/2021 11:12 AM PRODUCE RUNNER Estee Peck MD LAB - CHEMISTRY ALEENA HERNANDEZ Performing Organization Address [facility]/ZIP Co de Phone Number [facility] [address] [place] [address] * COMPREHENSIVE METABOLIC PANEL (07/05/2021 11:11 AM PRODUCE RUNNER) [facility] Glucose 83 65 - 139 mg/dL [facility] Comment: ? Non-fasting reference interval BUN 11 7 - 25 mg/dL [facility] Creatinine 0.92 0.60 - 1.35 mg/dL [facility] eGFR by MDRD 116 > OR = 60 mL/min/1. 73m2 [facility] eGFR by MDRD 134 > OR = 60 mL/min/1. 73m2 [facility] BUN/Creatinine Ratio NOT APPLICABLE 6 - 22 (calc) [facility] Sodium 141 135 - 146 mmol/L [facility] Potassium 4.3 3.5 - 5.3 mmol/L [facility] Chloride 104 98 - 110 mmol/L [facility] CO2 29 20 - 32 mmol/L [facility] Calcium 9.4 8.6 - 10.3 mg/dL [facility] Protein Total 6.5 6.1 - 8.1 g/dL [facility] Albumin 4.2 3.6 - 5.1 g/dL [facility] Globulin Total 2.3 1.9 - 3.7 g/dL (calc) [facility] Albumin/Globuli n Ratio 1.8 1.0 - 2.5 (calc) [facility] Bilirubin Total 0.3 0.2 - 1.2 mg/dL [facility] Alkaline Phosphatase 127 36 - 130 U/L [facility] AST 13 10 - 40 U/L [facility] ALT 34 9 - 46 U/L [facility] Comment: Test Performed at: [facility] [address] ??[phone] SIRIA AGUILAR DO,MPH Blood BLOOD SPECIMEN / Unknown 07/05/2021 11:11 AM PRODUCE RUNNER 07/05/2021 11:12 AM PRODUCE RUNNER Estee Peck MD LAB - CHEMISTRY ALEENA HERNANDEZ Performing Organization Address City/[facility]/ZIP Co de Phone Number [facility] [address] [place] [address] * CBC WITH DIFFERENTIAL (07/05/2021 11:11 AM PRODUCE RUNNER) [facility] White Blood Cell Count 6.6 3.8 - 10.8 Thousand/u L [facility] RBC 4.72 4.20 - 5.80 Million/uL [facility] Hemoglobin 13.3 13.2 - 17.1 g/dL [facility] Hematocrit 41.4 38.5 - 50.0 % [facility] MCV 87.7 80.0 - 100.0 fL [facility] MCH 28.2 27.0 - 33.0 pg [facility] MCHC 32.1 32.0 - 36.0 g/dL [facility] RDW 13.4 11.0 - 15.0 % [facility] Platelet Count 217 140 - 400 Thousand/u L [facility] MPV 10.2 7.5 - 12.5 fL [facility] Neutrophil Absolute 4283 1500 - 7800 cells/uL [facility] Lymphocytes Absolute 1815 850 - 3900 cells/uL [facility] Absolute Monocytes 370 200 - 950 cells/uL [facility] Eosinophils Absolute 92 15 - 500 cells/uL [facility] Basophils Absolute 40 0 - 200 cells/uL [facility] Granulocytes % 64.9 % [facility] Lymphocytes % 27.5 % [facility] Monocytes % 5.6 % [facility] Eosinophils % 1.4 % [facility] Basophils % 0.6 % [facility] Comment: Test Performed at: [employer] [facility] [id number] [place] [address] ??[phone] SIRIA AGUILAR DO,MPH Blood BLOOD SPECIMEN / Unknown 07/05/2021 11:11 AM PRODUCE RUNNER 07/05/2021 11:12 AM PRODUCE RUNNER Estee Peck MD LAB - HEMATOLOGY ORD ERABLES [facility] [address] [place] [address] documented in this encounter Visit Diagnoses Diagnosis High risk medications (not anticoagulants) long-term use- Primary Encounter for long-term (current) use of other medications documented in this encounter
--- OUTSIDE RECORDS SUMMARY | 2024-07-15 18:39 | XMS_ITS | Encounter Summary ---
Author Organization [facility] Address [address] [place] [address] Care Team Providers Care Coil Inspector Name Role Phone Unavailable Primary Care Provider Unavailabl e Reason for Referral * Evaluate & Treat (Routine) - Closed Specialty Diagnoses / Procedures Referred By Luly t Referred To Contact Rheumatology Diagnoses Pain of both shoulder joints Estee Peck MD [address] [place] [address] [place] [address] [facility] [address] [phone] Referral ID Status Reason Start Date Expiration Date V isits Requested Visits Authorized [id number] Closed Specialty Services Required 04/17/2021 04/17/2022 1 1 Reason for Visit * Reason Comments Lesions New patient, Knees a nd elbows Encounter Details Date Type Department Care Team (Late st Contact Info) Description 04/17/2021 10:30 AM CDT Office Visit [facility] [address] [place] [phone] Estee Peck MD [address] [place] [address] [place] [address] Pain of both shoulder joints (Primary Dx); Other psoriasis Social History Tobacco Use Types [...] AM CDT documented as of this encounter Patient Instructions * Patient Instructions* Kirk Sue MD - 04/17/2021 11:07 AM CDT Thank you for visiting the [facility] today! Please continue the following instructions as we discussed in clinic today: 1) Start clobetasol 0.05% ointment instead of hydrocortisone twice daily for 3 weeks per month (cover the area with the knee with saran wrap at night after putting on the medication to help it penetrate deeper) 2) Start ketoconazole three times weekly 3) See Rheumatology to evaluate the joint pain Please follow-up in 6 months documented in this encounter Progress Notes * Kirk Sue MD - 04/17/2021 10:58 AM CDT Chief Complaint Patient presents with ??? Lesions New patient, Knees and elbows HPI: Manoj Horner a 25 year old male presents for Lesions. New Patient w mom Zoey Concerns: 1. Psoriasis a. Since age 11 b. Never had rx for pso prior to 3 weeks ago i. Using HC 2.5% cr and Dovonex cr per PCP the last 3 weeks which helps some c. Tried Vit E over the counter which helped some d. Mild scalp scale e. No genital involvement f. Today is an average day g. R knee lesion is thickest, started after scraping knee on pavement h. Sometimes shoulder stiffness, hands weekly worse in AM i. Attributes to video games, never evaluated ii. Dad w/ hx of PsA Hx of bipolar and autism ROS: No other skin complaints Allergies and medications were reviewed and verified. Past medical history, social history and family history were reviewed. PE: ??? No acute distress. ??? Mood clear/affect appropriate. ??? Alert and oriented. ??? Mucous membranes moist, lips free of lesions. ??? Sclera anicteric, conjunctiva clear. Skin exam was conducted to include the: scalp, face, lips, lids/conjunctiva, ears, neck, chest, back, abdomen, right and left hands and forearms, right and left leg and feet, (FBSE) and was normal with the following exceptions: - mild scalp scale - thick salmon colored plaque micaceous scale R knee, pink papules elbows - ~3% bsa - mild proximal nail fold erythema some fingers, no nail changes A/P: Manoj was seen today for lesions. Diagnoses and all orders for this visit: Pain of both shoulder joints - Ref to Rheumatology - [facility]; Future Other psoriasis 3% bsa with joint point c/f PsA Discussed clobetasol 0.05% oint under occ to R knee with clobetasol 0.05% oint up to 3wks per monthas maintenance to active plaques and dovonex daily to plaques Ketoconazole shampoo for scalp If Rheum concerned about PsA, advised would be candidate for systemic tx, however, given low bsa and relatively untreated topically, from purely skin standpoint may not need - clobetasol (TEMOVATE) 0.05 % ointment; Apply to affected area on the knees and elbows BID. 30 daysupply. - ketoconazole (NIZORAL) 2 % shampoo; Apply to wet hair, leave on for 3 minutes, then rinse; three times weekly. 30 days supply RTC 6 months MDM based billing (click SLUBillingGuide for U smart form; click [place] for [facility] TIME based billing). SluBillingGuide Coding Rationale New or est? New Patient Highest problem complexity: 1 stable chronic illness Highest level of risk: Moderate Suggested code: 42633 Kirk Sue MD [facility] Resident PGY4 Associated attestation - Estee Peck MD - 04/17/2021 2:51 PM CDT Attending Physician Supervisory Note I have seen and examined the patient with the resident and I agree with the findings and plan of care as documented by the resident. Date of Service : 04/17/2021 Estee Peck MD Supervisor Shop Department of Dermatology [facility] documented in this encounter Plan of Treatment Upcoming Encounters Date Type Department Care Team (Late st Contact Info) Description 10/21/2024 1:30 PM CDT Office Visit [facility] Rhe[facility]ology [address] [place] [phone] Paulino Youngblood MD [address] [place] [address] [place] [phone] 11/30/2024 3:00 PM CDT Office Visit [facility] - ENT [address] [place] [phone] Froilan Monae MD [address] [place] [address] [address] [place] [address] 02/15/2025 10:00 AM CDT Office Visit [facility] - Internal Med [address] [place] [phone] Richard Chacon III, MD [address] [place] [address] [address] [place] [phone] Scheduled Referrals Name Type Priority Associated Diagnoses Order Schedule Ref to Rheumatology - [facility] Outpatient Referral Routine Pain of both shoulder joints 1 Occurrences starting 04/17/2021 until 04/17/2022 documented as of this encounter Visit Diagnoses Diagnosis Pain of both shoulder joints- Primary Other psoriasis documented in this encounter
--- OUTSIDE RECORDS SUMMARY | 2024-07-15 18:39 | XMS_ITS ---
Author Organization [facility] [employer] Address [address] [place] [address] Care Team Providers Care Literacy Specialist Name Role Phone Maldonado ARAUZ MD Primary Care Provider Christa Laura Unavailable [phone] Allergies No Known Allergies REASON FOR VISIT follow up rx Medications Medication SIG (Take, Route, Frequency, Duration) Notes Start Date End Date Status Clobetasol Propionate 0.05 % External 09/02/2023 Active Folic Acid 1 MG Oral 09/02/2023 Act artur Citalopram Hydrobromide 40 MG Oral 09/02/2023 Active Hydrocortisone 2.50% External 09/02/2023 Active COSENTYX PEN 300 MG/2 PENS (150 MG/ML) SUBCUTANEOUS *Reorder from [employer] for eRx and Interaction Alerts* 09/02/2023 Active Venlafaxine HCl ER 37.5 MG 1 capsule with food Orally Once a day for 90 days 09/02/2023 Active Ketoconazole 2% External 09/02/2023 Act artur Naproxen 500 MG Oral 09/02/2023 Act artur Calcipotriene 0.005 % External 09/02/2023 Active ZyPREXA 10 mg Oral 09/02/2023 Activ e Wellbutrin SR 200 MG Oral 09/02/2023 Active AFLURIA QD 2020- (36 MOS UP)(PF)60 MCG (15 MCG X4)/0.5 ML IM SYRINGE *Reorder from [employer] for eRx and Interaction Alerts* 09/02/2023 Active CeleXA 40 MG 1 tablet Oral Once a day for 90 days 09/02/2023 Active buPROPion HCl ER (SR) 200 MG 1 tablet in the morning Oral Once a day for 90 days 09/02/2023 Active OLANZapine 10 MG 1 tablet Orally bedtime for 90 days 09/02/2023 Active Melatonin 3 MG Oral 09/02/2023 Acti ve Cholecalciferol 25 MCG (1000 UT) Oral 09/02/2023 Active Social History Tobacco Use: Social [...] ast year? No Points 0 Interpretation Negative Problems Problem Type SNOMED Code ICD Code Onset Dates Problem Status W/U Status Risk Notes Problem Bipolar affective disorder, currently depressed, mild (263501322) Bipolar disorder, current episode depressed, mild (F31.31) 4 Active confirmed Problem Generalized anxiety disorder (92039181) Generalized anxiety disorder (F41.1) 4 Active confirmed Problem Insomnia disorder related to another mental disorder (54834513) Insomnia due to other mental disorder (F51.05) 4 Active confirmed Problem Pervasive developmental disorder (disorder) (23119423) Autistic disorder (F84.0) 4 Active confirmed Vital Signs Height 67.00 in 12/02/2023 Weight 169.2 lbs 12/02/2023 BMI 26.5 kg/m2 12/02/2023 Height-cm 170.18 cm 12/02/2023 Weight-kg 76.75 kg 12/02/2023 Encounters Encounter Location Date Provider Diagnosis [facility] [address] [address] 12/02/2023 Christa Rankin Bipolar disorder, current episode depressed, mild F31.31 ; Generalized anxiety disorder F41.1 ; Insomnia due to other mental disorder F51.05 and Autistic disorder F84.0 Assessments Encounter Date Diagnosis (ICD Code) Assessment Notes Treatment Notes Treatment Clinical Notes Section Notes 12/02/2023 Bipolar disorder, current episode depressed, mild (ICD-10 - F31.31) 1. Bipolar affective disorder, current episode depression - reviewed labs 07/25/23 and RA provider office note from 07/24/23 Neurologist for migraines schedule 2023 Zyprexa 10 mg at bedtime Effexor ER [...] and patient instructions. metabolic and movement d/o educatio F31.31: Bipolar disorder, current episode depressed, mild bupropion HCl SR 200 mg tablet,12 hr sustained-releas e - TAKE 1 TABLET BY MOUTH EVERY DAY Qty: (90) tablet Refills: 0 Pharmacy: [facility] #[id number] olanzapine 10 mg tablet - TAKE 1 TABLET BY MOUTH EVERY DAY AT BEDTIME Qty: (90) tablet Refills: 0 Pharmacy: [facility] #[id number] venlafaxine ER 37.5 mg capsule,extended release 24 hr - Take 1 capsule(s) every day by oral route in the morning for 30 days, for Depression and anxiety. Qty: (30) capsule Refills: 0 Pharmacy: [facility] #[id number] 2. Generalized anxiety disorder - Celexa 40 mg dailyeducated on anxiety and prevention F41.1: Generalized anxiety disorder citalopram 40 mg tablet - TAKE 1 TABLET BY MOUTH EVERY DAY IN THE MORNING Qty: (90) tablet Refills: 0 Pharmacy: [facility] #[id number] 3. Insomnia disorder related to another mental disorder - hypersomnia Melatonin 3 mg at night OTC F51.05: Insomnia due to other mental disorder 4. Autistic disorder -rzgtlhX65.0: Autistic disorder 5. Long-term drug therapy 12/02/2023 Generalized anxiety disorder (ICD-10 - F41.1) 1. Bipolar affective disorder, current episode depression - reviewed labs 07/25/23 and RA provider office note from 07/24/23 Neurologist for migraines schedule 2024 Zyprexa 10 mg at bedtime Effexor ER [...] and patient instructions. metabolic and movement d/o educatio F31.31: Bipolar disorder, current episode depressed, mild bupropion HCl SR 200 mg tablet,12 hr sustained-releas e - TAKE 1 TABLET BY MOUTH EVERY DAY Qty: (90) tablet Refills: 0 Pharmacy: [facility] #[id number] olanzapine 10 mg tablet - TAKE 1 TABLET BY MOUTH EVERY DAY AT BEDTIME Qty: (90) tablet Refills: 0 Pharmacy: [facility] #[id number] venlafaxine ER 37.5 mg capsule,extended release 24 hr - Take 1 capsule(s) every day by oral route in the morning for 30 days, for Depression and anxiety. Qty: (30) capsule Refills: 0 Pharmacy: [facility] #[id number] 2. Generalized anxiety disorder - Celexa 40 mg dailyeducated on anxiety and prevention F41.1: Generalized anxiety disorder citalopram 40 mg tablet - TAKE 1 TABLET BY MOUTH EVERY DAY IN THE MORNING Qty: (90) tablet Refills: 0 Pharmacy: [facility] #[id number] 3. Insomnia disorder related to another mental disorder - hypersomnia Melatonin 3 mg at night OTC F51.05: Insomnia due to other mental disorder 4. Autistic disorder -erfqdoB84.0: Autistic disorder 5. Long-term drug therapy 12/02/2023 Insomnia due to other mental disorder (ICD-10 - F51.05) 1. Bipolar affective disorder, current episode depression - reviewed labs 07/25/23 and RA provider office note from 07/24/23 Neurologist for migraines schedule 2023 Zyprexa 10 mg at bedtime Effexor ER [...] and patient instructions. metabolic and movement d/o educatio F31.31: Bipolar disorder, current episode depressed, mild bupropion HCl SR 200 mg tablet,12 hr sustained-releas e - TAKE 1 TABLET BY MOUTH EVERY DAY Qty: (90) tablet Refills: 0 Pharmacy: [facility] #[id number] olanzapine 10 mg tablet - TAKE 1 TABLET BY MOUTH EVERY DAY AT BEDTIME Qty: (90) tablet Refills: 0 Pharmacy: [facility] #[id number] venlafaxine ER 37.5 mg capsule,extended release 24 hr - Take 1 capsule(s) every day by oral route in the morning for 30 days, for Depression and anxiety. Qty: (30) capsule Refills: 0 Pharmacy: [facility] #[id number] 2. Generalized anxiety disorder - Celexa 40 mg dailyeducated on anxiety and prevention F41.1: Generalized anxiety disorder citalopram 40 mg tablet - TAKE 1 TABLET BY MOUTH EVERY DAY IN THE MORNING Qty: (90) tablet Refills: 0 Pharmacy: [facility] #[id number] 3. Insomnia disorder related to another mental disorder - hypersomnia Melatonin 3 mg at night OTC F51.05: Insomnia due to other mental disorder 4. Autistic disorder -bafrczF32.0: Autistic disorder 5. Long-term drug therapy 12/02/2023 Autistic disorder (ICD-10 - F84.0) 1. Bipolar affective disorder, current episode depression - reviewed labs 07/25/23 and RA provider office note from 07/24/23 Neurologist for migraines schedule 2023 Zyprexa 10 mg at bedtime Effexor ER [...] and patient instructions. metabolic and movement d/o educatio F31.31: Bipolar disorder, current episode depressed, mild bupropion HCl SR 200 mg tablet,12 hr sustained-releas e - TAKE 1 TABLET BY MOUTH EVERY DAY Qty: (90) tablet Refills: 0 Pharmacy: [facility] #[id number] olanzapine 10 mg tablet - TAKE 1 TABLET BY MOUTH EVERY DAY AT BEDTIME Qty: (90) tablet Refills: 0 Pharmacy: [facility] #[id number] venlafaxine ER 37.5 mg capsule,extended release 24 hr - Take 1 capsule(s) every day by oral route in the morning for 30 days, for Depression and anxiety. Qty: (30) capsule Refills: 0 Pharmacy: [facility] #[id number] 2. Generalized anxiety disorder - Celexa 40 mg dailyeducated on anxiety and prevention F41.1: Generalized anxiety disorder citalopram 40 mg tablet - TAKE 1 TABLET BY MOUTH EVERY DAY IN THE MORNING Qty: (90) tablet Refills: 0 Pharmacy: [facility] #[id number] 3. Insomnia disorder related to another mental disorder - hypersomnia Melatonin 3 mg at night OTC F51.05: Insomnia due to other mental disorder 4. Autistic disorder -nwzlmkF84.0: Autistic disorder 5. Long-term drug therapy 12/02/2023 Other 1. Bipolar affective disorder, current episode depression -reviewed labs 07/25/23 and RA provider office note from 07/24/23refer to Neurologist for migraines schedule 2023 Zyprexa 10 mg at bedtimeEffexor ER 37.5 mg in am - depression and anxiety- educated on rx and monitor B/PWellbutrin SR 200 mg twice a day AIMS=0 12/08/20AIMS=0 03/05/22AIMS= 0 06/03/23 educated on all medications, benefits, side effects and risk, and educated on depression, anxiety, and mood d/o and educated on compliance of medications, appointment's, continue therapy discussion with patient about course of treatment and patient instructions. metabolic and movement d/o educatio F31.31: Bipolar disorder, current episode depressed, mildbupropion HCl SR 200 mg tablet,12 hr sustained-release - TAKE 1 TABLET BY MOUTH EVERY DAY Qty: (90) tablet Refills: 0 Pharmacy: [facility] #[id number] 10 mg tablet - TAKE 1 TABLET BY MOUTH EVERY DAY AT BEDTIME Qty: (90) tablet Refills: 0 Pharmacy: [facility] #[id number] ER 37.5 mg capsule,extended release 24 hr - Take 1 capsule(s) every day by oral route in the morning for 30 days, for Depression and anxiety. Qty: (30) capsule Refills: 0 Pharmacy: [facility] #[id number] 2. Generalized anxiety disorder -Celexa 40 mg dailyeducated on anxiety and ynrbbjeiysC79.1: Generalized anxiety disorder citalopram 40 mg tablet - TAKE 1 TABLET BY MOUTH EVERY DAY IN THE MORNING Qty: (90) tablet Refills: 0 Pharmacy: [facility] #[id number] 3. Insomnia disorder related to another mental disorder -hypersomniaMelat onin 3 mg at night OTCF51.05: Insomnia due to other mental disorder 4. Autistic disorder -xkyepcX44.0: Autistic disorder 5. Long-term drug therapy 1. Bipolar affective disorder, current episode depression - reviewed labs 07/25/23 and RA provider office note from 07/24/23 Neurologist for migraines schedule 2023 Zyprexa 10 mg at bedtime Effexor ER [...] and patient instructions. metabolic and movement d/o educatio F31.31: Bipolar disorder, current episode depressed, mild bupropion HCl SR 200 mg tablet,12 hr sustained-releas e - TAKE 1 TABLET BY MOUTH EVERY DAY Qty: (90) tablet Refills: 0 Pharmacy: [facility] #[id number] olanzapine 10 mg tablet - TAKE 1 TABLET BY MOUTH EVERY DAY AT BEDTIME Qty: (90) tablet Refills: 0 Pharmacy: [facility] #[id number] venlafaxine ER 37.5 mg capsule,extended release 24 hr - Take 1 capsule(s) every day by oral route in the morning for 30 days, for Depression and anxiety. Qty: (30) capsule Refills: 0 Pharmacy: [facility] #[id number] 2. Generalized anxiety disorder - Celexa 40 mg dailyeducated on anxiety and prevention F41.1: Generalized anxiety disorder citalopram 40 mg tablet - TAKE 1 TABLET BY MOUTH EVERY DAY IN THE MORNING Qty: (90) tablet Refills: 0 Pharmacy: [facility] #[id number] 3. Insomnia disorder related to another mental disorder - hypersomnia Melatonin 3 mg at night OTC F51.05: Insomnia due to other mental disorder 4. Autistic disorder -lzzouiI37.0: Autistic disorder 5. Long-term drug therapy Plan Of Treatment Medication Medication Name Sig Start Date Stop Date Notes Venlafaxine HCl ER 37.5 MG 1 capsule wit h food Orally Once a day for 90 days 09/02/2023 CeleXA 40 MG 1 tablet Oral Once a day for 90 days 09/02/2023 buPROPion HCl ER (SR) 200 MG 1 tablet in the morning Oral Once a day for 90 days 09/02/2023 OLANZapine 10 MG 1 tablet Orally bedt wilfredo for 90 days 09/02/2023 Treatment Notes Assessment Notes Other 1. Bipolar affective disorder, current episode depression -reviewed labs 07/25/23 and RA provider office note from 07/24/23refer to Neurologist for migraines schedule 2023 Zyprexa 10 mg at bedtimeEffexor ER 37.5 mg in am - depression and anxiety- educated on rx and monitor B/PWellbutrin SR 200 mg twice a day AIMS=0 12/08/20AIMS=0 03/05/22AIMS= 0 06/03/23 educated on all medications, benefits, side effects and risk, and educated on depression, anxiety, and mood d/o and educated on compliance of medications, appointment's, continue therapy discussion with patient about course of treatment and patient instructions. metabolic and movement d/o educatio F31.31: Bipolar disorder, current episode depressed, mildbupropion HCl SR 200 mg tablet,12 hr sustained-release - TAKE 1 TABLET BY MOUTH EVERY DAY Qty: (90) tablet Refills: 0 Pharmacy: [facility] #[id number] 10 mg tablet - TAKE 1 TABLET BY MOUTH EVERY DAY AT BEDTIME Qty: (90) tablet Refills: 0 Pharmacy: [facility] #[id number] ER 37.5 mg capsule,extended release 24 hr - Take 1 capsule(s) every day by oral route in the morning for 30 days, for Depression and anxiety. Qty: (30) capsule Refills: 0 Pharmacy: [facility] #[id number] 2. Generalized anxiety disorder -Celexa 40 mg dailyeducated on anxiety and pybhkshdsaW78.1: Generalized anxiety disorder citalopram 40 mg tablet - TAKE 1 TABLET BY MOUTH EVERY DAY IN THE MORNING Qty: (90) tablet Refills: 0 Pharmacy: [facility] #[id number] 3. Insomnia disorder related to another mental disorder -hypersomniaMelatonin 3 mg at night OTCF51.05: Insomnia due to other mental disorder 4. Autistic disorder -wgqugiL77.0: Autistic disorder 5. Long-term drug therapy Next Appt Details Follow Up: 3 Months, Reason: Provider Name:Christa Rankin , 09/22/2024 09:15:00 AM, [address] [facility] [address] [facility], [address], [address], Progress Notes * CESAR SPEAROB: 7 (28 yo M)Acc No.[id number]:12/02/2023 Patient:?JEAN SPEAR Provider:?SERGIO WILLHNP :1995???Age:27 Y???Sex:Male Osiel e:12/02/2023 Phone: Address:[address] [place] [address] [facility] Subjective: * Chief Complaints: * ???1. Follow up rx. * HPI: ???History of Presenting Problem:? Anxiety symptomsReported by?patient.Associated Symptoms:?no irritability; no palpitations; no shortness of breath; no headaches; no intrusive thoughts; no avoidant behavior; no hypervigilence; no difficulty concentrating; no difficulty controlling worry; no easily fatigue; no restlessness; no anxiety; improved sleep? Bipolar DisorderReported by?patient.Type:?Bipolar I Context:? no?mood swings Onset/Timing:?chronic Severity:?mild Onset/Timing:?chronic Severity:?mild Associated Symptoms: reported no sadness;?anxiety;?irritability/agitation;?fatigue; good energy; no excessive crying; good appetite;?weight loss; good sleep; making decisions; interest in daily activities; no feelings of worthlessness; no feeling guilty;?concentration/memory good; no hopelessness; no helplessnesscc; follow up medications Follow up Bipolar depression, NELA, Insomnia, chronic report I been doing good with and new rx Effexor has helped out very well and no s/e and I been doing very good over all and better with depressed and anxiety.?I feel no sad, down and no hopeless or helpless, sleep better also average 8 hours, and? and no SI/HI I been excited everything been going good and losing weight, 6 pounds, and appetite good, I been taking arthritis rx as prescribed and pain still, I get migraines and journal them for neurologist, not feeling anxious, restless, or fidgety, no irritable, no aggression or agitation, no behaviors, no psychosis, no delusions no charli, no paranoia, no delusions, concentrate and focus good, I play video games, motivated and interest to do a lot things I jeyson, no SI/HI, I have no abnormal movement d/o and none noted,I see neurologist later this year and I take OTC rx for it and steam showers help, sister x2 dad and sister bipolar and anxiety one sister austric and does not talk denies SI/HI no plans or intent no thoughts harm to self or others, no past attempts, ETOH denies smoking denies labs recently with RA provider? drugs denies seen derm and will see RA 09/06/2021. * ROS:?Patient reports?weight loss none?but reports no fever and no significant weight gain. He reports?difficulty hearing (hearing aids) . He reports no abdominal pain, no nausea, no vomiting, no constipation, normal appetite, no diarrhea, and no GERD;?sensitivity to certain foods and caused migraines. He reports?arthralgias/joint pain?but reports no muscle aches, no muscle weakness, no back pain, no neck pain, and no difficulty walking;?psoriasis joint pain seeing RA provider dxn 2021. ?He reports?dry skin;?psoriasis see clothing patternmaker /RA provider skin d/o improving with rx. He reports?frequent or severe headaches and migraines?but reports no loss of consciousness, no weakness, no numbness, no seizures, no dizziness, no tremor, no gait dysfunction, and no paralysis;?see neurologist. He reports?depression, sleep disturbances (hyposomnia), anxiety, and memory loss?but reports no alcohol abuse, no hallucinations, no suicidal thoughts, no mood swings, and no agitation. He reports?fatigue. ?He reports no chest pain, no shortness [...] D deficiency, Weight gain, ,. * Surgical History:?Denies Pas t Surgical History. * Hospitalization/Major Diagno stic Procedure:?Denies Past Hospitalization. * Family History:?Father: stephen restrepo, Depressive disorder [...] the child live??with both parents.? * Medications:?Taking Cholecal ciferol 25 MCG (1000 UT) Capsule Oral , Taking Melatonin 3 MG Tablet Oral , Taking Wellbutrin SR 200 MG Tablet Extended Release 12 Hour Oral , Taking buPROPion HCl ER (SR) 200 MG Tablet Extended Release 12 Hour Oral , Taking AFLURIA QD 2019- (36 MOS UP)(PF)60 MCG (15 MCG X4)/0.5 ML IM SYRINGE , Notes to Pharmacist: *Reorder from [employer] for eRx and Interaction Alerts*, Taking OLANZapine 10 MG Tablet Oral , Taking Ketoconazole 2% Shampoo External , Taking Calcipotriene 0.005 % Cream External , Taking ZyPREXA 10 mg Tablet Oral , Taking Naproxen 500 MG Tablet Oral , Taking CeleXA 40 MG Tablet Oral , Taking Citalopram Hydrobromide 40 MG Tablet Oral , Taking Clobetasol Propionate 0.05 % Ointment External , Taking Folic Acid 1 MG Tablet Oral , Taking Hydrocortisone 2.50% Cream External , Taking COSENTYX PEN 300 MG/2 PENS (150 MG/ML) SUBCUTANEOUS , Notes to Pharmacist: *Reorder from [employer] for eRx and Interaction Alerts*, Taking Venlafaxine HCl ER 37.5 MG Capsule Extended Release 24 Hour Oral , Medication List reviewed and reconciled with the patient * Allergies:?N.K.D.A. Objective: * Vitals:?Wt:169.2lbs, Wt-k.75 kg, Ht: 67.00 in, Ht-cm: 170.18 cm, BMI:26.5Index, Body Surface Area: 1.9. Assessment: * Assessment: 1.?Bipolar disorder, current episode depressed, mild - F31.31 (Primary)???2.?Generalized anxiety disorder - F41.1???3.?Insomnia due to other mental disorder - F51.05???4.?Autistic disorder - F84.0??? 1. Bipolar affective disorde r, current episode depression?- reviewed labs 07/25/23 and RA provider office note from 07/24/23 Neurologist for migraines schedule 2023 Zyprexa 10 mg at bedtime Effexor ER [...] and patient instructions. metabolic and movement d/o educatio F31.31: Bipolar disorder, current episode depressed, mild bupropion HCl SR 200 mg tablet,12 hr sustained-release -?TAKE 1 TABLET BY MOUTH EVERY DAY ? ? Qty: (90)??tablet ? ? Refills: 0 ? ? Pharmacy: [facility] #[id number] olanzapine 10 mg tablet -?TAKE 1 TABLET BY MOUTH EVERY DAY AT BEDTIME ? ? Qty: (90)??tablet ? ? Refills: 0 ? ? Pharmacy: [facility] #[id number] venlafaxine ER 37.5 mg capsule,extended release 24 hr -?Take 1 capsule(s) every day by oral route in the morning for 30 days, for Depression and anxiety. ? ? Qty: (30)??capsule ? ? Refills: 0 ? ? Pharmacy: [facility] #[id number] 2. Generalized anxiety disorder?- Celexa 40 mg dailyeducated on anxiety and prevention F41.1: Generalized anxiety disorder citalopram 40 mg tablet -?TAKE 1 TABLET BY MOUTH EVERY DAY IN THE MORNING ? ? Qty: (90)??tablet ? ? Refills: 0 ? ? Pharmacy: [facility] #[id number] 3. Insomnia disorder related to another mental disorder?- hypersomnia Melatonin 3 mg at night OTC F51.05: Insomnia due to other mental disorder 4. Autistic disorder?-xfqocoB25.0: Autistic disorder 5. Long-term drug therapy Plan: * Treatment: * Procedure Codes:?G2211 VISIT COMPLEXITY INHERENT TO ONGOING CARE RELATED TO A PATIENT'S SINGLE, SERIOUS CONDITION OR A COMPLEX CONDITION * Follow Up:?3 Months * Billing Information: * Visit Code:? 20380 OFFICE OUTPATIENT VISIT 25 MINUTES DETAILED HISTORY AND EXAM/MODERATE MEDICAL DECISION MAKING. * Procedure Codes:? G2211 VISIT COMPLEXITY INHERENT TO ONGOING CARE RELATED TO A PATIENT'S SINGLE, SERIOUS CONDITION OR A COMPLEX CONDITION. * Sign off status: Completed true * Provider:?TIFFANY WILL Date:? 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 History and Physical Notes * HPI (History of Present Illness) Category Sub-Category Detail Notes Category Not es History of Presenting Problem Anxiety symptomsReported by patient.Associated Symptoms: no irritability; no palpitations; no shortness of breath; no headaches; no intrusive thoughts; no avoidant behavior; no hypervigilence; no difficulty concentrating; no difficulty controlling worry; no easily fatigue; no restlessness; no anxiety; improved sleep Bipolar DisorderReported by patient.Type: Bipolar I Context: no mood swings Onset/Timing: chronic Severity: mild Onset/Timing: chronic Severity: mild Associated Symptoms: reported no sadness; anxiety; irritability/agitation; fatigue; good energy; no excessive crying; good appetite; weight loss; good sleep; making decisions; interest in daily activities; no feelings of worthlessness; no feeling guilty; concentration/memory good; no hopelessness; no helplessnesscc; follow up medications Follow up Bipolar depression, NELA, Insomnia, chronic report I been doing good with and new rx Effexor has helped out very well and no s/e and I been doing very good over all and better with depressed and anxiety. I feel no sad, down and no hopeless or helpless, sleep better also average 8 hours, and and no SI/HI I been excited everything been going good and losing weight, 6 pounds, and appetite good, I been taking arthritis rx as prescribed and pain still, I get migraines and journal them for neurologist, not feeling anxious, restless, or fidgety, no irritable, no aggression or agitation, no behaviors, no psychosis, no delusions no charli, no paranoia, no delusions, concentrate and focus good, I play video games, motivated and interest to do a lot things I jeyson, no SI/HI, I have no abnormal movement d/o and none noted,I see neurologist later this year and I take OTC rx for it and steam showers help, sister x2 dad and sister bipolar and anxiety one sister austric and does not talk denies SI/HI no plans or intent no thoughts harm to self or others, no past attempts, ETOH denies smoking denies labs recently with RA provider drugs denies seen derm and will see RA 09/06/2021
--- OUTSIDE RECORDS SUMMARY | 2024-07-15 18:39 | XMS_ITS | Encounter Summary ---
Author Organization [facility] Address [address] [facility] [place] [address] Care Team Providers Care Production Superintendent Hydro Name Role Phone Unavailable Primary Care Provider Unavailabl e Reason for Visit * Reason Comments Abscess bit rt thumb nail 3 days ago; now has pustules and swelling; afebrile; Encounter Details Date Type Department Care Team (Late st Contact Info) Description 06/18/2011 10:29 AM ANTISUBMARINE [employer] OFFICER - 06/18/2011 12:46 PM ANTISUBMARINE WE[employer] OFFICER Emergency ER at [address] [address] Azam Strong MD [address] [place] [phone] Cellulitis and abscess of unspecified site Discharge Disposition: Home or Self Care Social History Tobacco Use Types Packs/Day Years Used Date Smoking Tobacco: Never Assessed Sex and Gender Information Value Date Recorded Sex Assigned at Not on file Gender Identity Not on file Sexual Orientation Not on file documented as of this encounter Last Filed Vital Signs Vital Sign Reading Time Taken Comments Blood Pressure 151/67 06/18/2011 10:54 AM AN[employer]ISU[employer]INE [employer] OFFICER Pulse 82 06/18/2011 10:54 AM [employer]INE [employer] OFFICER Temperature 36.4 ??C (97.6 ??F) 06/18/2011 1 0:54 AM ANTISUBM[employer]INE [employer] OFFICER Respiratory Rate 18 06/18/2011 10:5 4 AM ANTISU[employer]INE [employer] OFFICER Oxygen Saturation - - Inhaled Oxygen Concentration - - Weight 76.5 kg (168 lb 10.4 oz) 011 10:54 AM ANTISU[employer]INE [employer] OFFICER Height - - Body Mass Index - - documented in this encounter Discharge Instructions * Discharge Instructions* Marcelino Osiris, DO - 06/18/2011 12:16 PM ANTIS[employer]INE [employer] OFFICER Abscess/Boil (Furuncle) An abscess (boil or furuncle) is an infected area that contains a collection of pus. SYMPTOMS Signs and symptoms of an abscess include pain, tenderness, redness, or hardness. You may feel a moveable soft area under your skin. An abscess can occur anywhere in the body. TREATMENT An incision (cut by the caregiver) may have been made over your abscess so the pus could be drainedout. Gauze may have been packed into the space or a drain may have been looped thru the abscess cavity (pocket). This provides a drain that will allow the cavity to heal from the inside outwards. Theabscess may be painful for a few days, but should feel much better if it was drained. Your abscess,if seen early, may not have localized and may not have been drained. If not, another appointment may be required if it does not get better on its own or with medications. HOME CARE INSTRUCTIONS ?? Only take [id number] or prescription medicines for pain, discomfort, or fever as directed by your caregiver. ?? Keep the skin and clothes clean around your abscess. ?? If the abscess was drained, you will need to use gauze dressing (???4x4?? ) to collect any draining pus. These dressing typically will need to be changed 3 or more times during the day. ?? The infection may spread by skin contact with others. Avoid skin contact as much as possible. ?? Good hygiene is very important including regular hand washing, cover any draining skin lesions, and don???t share personal care items. ?? If you participate in sports do not share athletic equipment, towels, whirlpools, or personal care items. Shower after every practice or tournament. ?? If a draining area cannot be adequately covered: l Do not participate in sports l Children should not participate in day care until the wound has healed or drainage stops. ?? If your caregiver has given you a follow-up appointment, it is very important to keep that appointment. Not keeping the appointment could result in a much worse infection, chronic or permanent injury, pain, and disability. If there is any problem keeping the appointment, you must call back to this facility for assistance. SEEK MEDICAL CARE IF: ?? You develop increased pain, swelling, redness, drainage, or bleeding in the wound site. ?? You develop signs of generalized infection including muscle aches, chills, fever, or a general ill feeling. ?? An oral temperature above 102?? F (38.9??) develops. See your caregiver as directed for a recheck or sooner if you develop any of the symptoms describedabove. Take antibiotics (medicine that kills germs) as directed if they were prescribed. MAKE SURE YOU: ?? Understand these instructions. ?? Will watch your condition. ?? Will get help right away if you are not doing well or get worse. Document Released: 03/20/2006 Document Re-Released: 09/06/2009 [facility] Patient Information ??2009 [employer] Cellulitis Cellulitis is an infection of the skin and the tissue beneath it. The area is typically red and tender. It is caused by germs (bacteria) (usually staph or strep) that enter the body through cuts or sores. Cellulitis most commonly occurs in the arms and/or lower legs. HOME CARE INSTRUCTIONS ?? If you are given a prescription for antibiotics (medications which kill germs), take as directeduntil finished. ?? If the infection is on the arm or leg, keep the limb elevated as able. ?? Use a warm cloth several times per day to relieve pain and encourage healing. ?? See your caregiver for a recheck of the infected site in 2 days, or sooner if problems arise. ?? Only take [id number] or prescription medicines for pain, discomfort, or fever as directed by your caregiver. SEEK MEDICAL CARE IF: ?? An oral temperature above 102?? F (38.9?? C) develops, or as your caregiver suggests, not controlled by medication. ?? The area of redness is spreading, there are red streaks coming from the infected site, or if a part of the infection begins to turn dark in color. ?? The joint or bone underneath the infected skin becomes painful after the skin has healed. ?? The infection returns in the same or another area after it seems to have gone away. ?? A boil or bump swells up. This may be an abscess. ?? New, unexplained problems (symptoms) such as pain or fever develop. seek immediate medical care if: ?? You or your child feel drowsy or lethargic. ?? There is vomiting, diarrhea, or generalized malaise with muscle aches and pains. MAKE SURE YOU: ?? Understand these instructions. ?? Will watch your condition. ?? Will get help right away if you are not doing well or get worse. Document Released: 03/20/2006 Document Re-Released: 05/23/2009 [employer]?? Patient Information ??2009 [employer] SUBMARINE [employer] OFFICER * Discharge Instructions* Document, Scanned - 06/22/2011 10:36 AM ANTISUBMARINE WE[employer]ONS OFFICER [employer] OFFICER documented in this encounter Medications at Time of Discharge Medication Sig Dispensed Refills Start Date End Date olanzapine (ZYPREXA) 10 MG tablet Take 1 (one) tablet by mouth once daily clindamycin (CLEOCIN) 300 MG capsule Take 1 Cap by mouth every 8 hours for 10 days. 30 Cap 0 06/18/2011 06/28/2011 documented as of this encounter ED Notes * Stormy Lester RN - 06/18/2011 12:45 PM CST Dressing intact to right thumb. 4 x 4s and tape given from dressing changes. [employer] OFFICER * Osiris Garza DO - 06/18/2011 11:59 AM CSTAssociated Order(s): ED INCISION AND DRAINAGE Images from the original note were not included. Provider contact with the patient: 06/18/2011 11:59 AM Danis Horner [id number] [facility] EMERGENCY DEPT History Chief Complaint Patient presents with ??? Abscess bit rt thumb nail 3 days [...] includes abscess. Past Medical History Diagnosis Date ??? Bipolar 1 disorder No past surgical history on file. History Social History ??? Marital Status: Single Spouse Name: N/A Number of Children: N/A ??? Years of Education: N/A Occupational History ??? Not on file. Social History Main Topics ??? Smoking status: Not on file ??? Smokeless tobacco: Not on file ??? Alcohol Use: ??? Drug Use: ??? Sexually Active: Not on file Other Topics Concern ??? Not on file Social History Narrative ??? No narrative on file Medications Current Outpatient Prescriptions Medication Sig Dispense Refill ??? olanzapine (ZYPREXA) 10 MG tablet Take 10 mg by mouth once daily. ??? clindamycin (CLEOCIN) 300 MG capsule Take 1 Cap by mouth every 8 hours for 10 days. 30 Cap 0 Review of [...] to person, place, and time. He appears well- developed and well-nourished. No distress. HENT: Head: Normocephalic and atraumatic. Eyes: EOM are normal. Neck: Normal range of motion. Cardiovascular: Normal rate, regular rhythm, normal heart sounds and intact distal pulses. Pulmonary/Chest: Effort normal and breath sounds normal. No respiratory distress. He has no wheezes. He has no rales. Musculoskeletal: Normal range of motion. Neurological: He is alert and oriented to person, place, and time. He exhibits normal muscle tone. Skin: Skin is warm. Procedures Incision and Drainage Date/Time: 06/18/2011 12:21 PM Performed by: OSIRIS GARZA Authorized by: OSIRIS GARZA Consent: Verbal consent obtained. Risks and benefits: [...] concerns. Clinical Impression Encounter Diagnosis Name Primary? Cellulitis and abscess of unspecified site SUBM[employer]INE [employer] OFFICER * Stomry Lester RN - 06/18/2011 11:[address] Strong and Dr. Garza draining abscess. Patient tolerating procedure well. [employer] OFFICER * Azam Strong MD - 06/18/2011 11:23 AM CST Images from the original note were not included. EMERGENCY DEPARTMENT 06/18/[address] Travis Hernández MD We had the pleasure of caring for your patient, Danis Horner in our emergency department on 06/18/2011. A note from the provider(s) who cared for your patient is attached. Should you wish to access any laboratory results, please call . Should you wish to access any radiology results, please call , option 3. In addition, you can access patient information 24 hours a day, from any computer, through [employer], the online version of our electronic medical record. If you would like to use this service, please call Katrin Leach, Connectivity Coordinator, at . We appreciate the opportunity to care for your patients. If you would like additional information, please call the emergency department directly at . Sincerely, Azam Strong MD Division of Emergency Medicine [facility], [place] [facility] [place] DESIGNATED EMERGENCY DEPARTMENT 06/18/2011 11:23 AM Danis Horner [id number] [facility] EMERGENCY DEPT History Chief Complaint Patient presents with ??? Abscess bit rt thumb nail 3 days ago; now has pustules and swelling; afebrile; HPI Comments: Pt with swollen tender right thumb No drainage Nail biter Past Medical History Diagnosis Date ??? Bipolar 1 disorder No past surgical history on file. History Social History ??? Marital Status: Single Spouse Name: N/A Number of Children: N/A ??? Years of Education: N/A Occupational History ??? Not on file. Social History Main Topics ??? Smoking status: Not on file ??? Smokeless tobacco: Not on file ??? Alcohol Use: ??? Drug Use: ??? Sexually Active: Not on file Other Topics Concern ??? Not on file Social History Narrative ??? No narrative on file Medications Current Outpatient Prescriptions Medication Sig Dispense Refill ??? olanzapine (ZYPREXA) 10 MG tablet Take 10 mg by mouth once daily. ??? clindamycin (CLEOCIN) 300 MG capsule Take 1 Cap by mouth every 8 hours for 10 days. 30 Cap 0 Review of Systems Review of Systems BP 151/67 Pulse 82 Temp 97.6 ??F Resp 18 Wt 76.5 kg (168 lb 10.4 oz) Physical Exam Physical Exam Nursing note and vitals reviewed. Constitutional: He appears well-developed and well-nourished. No distress. Eyes: No oral lesions Musculoskeletal: Right thumb - pad and lateral aspect of the thumb with 3 pustular lesions and associated swelling and erythema. TTP primarily over the lateral aspect. FROM N/V intact Procedures Procedures EKG Interpretation Lab/SPO2 Interpretation Progress Notes ED Course Medical Decision Making I have reviewed the: Nursing Notes and Vitals. I have personally seen and examined this patient. I have fully participated in the care of this patient. I have reviewed all pertinent clinical information, including history, physical exam and plan.I have reviewed the nurses notes. I have reviewed available labs and radiographic studies. I was present for all portions of the digital block, I & D. The procedure was accomplished without complications. See resident procedure note for details. Eval c/w soft tissue abscess and cellulitis. Two pustules opened, pus expressed, irrigated with copious amounts of saline Dressing applied Will start abx to cover staph as well as anaerobes. Wound care inst Will return here if not responded to treatment Clinical Impression Encounter Diagnosis Name Primary? Cellulitis and abscess of unspecified site [employer] OFFICER documented in this encounter Miscellaneous Notes * Miscellaneous Scans - Document, Scanned - 07/11/2011 9:09 AM CST SUBMARINE [employer] OFFICER * Miscellaneous Scans - Document, Scanned - 07/10/2011 2:47 PM CST SU[employer]INE [employer] OFFICER documented in this encounter Plan of Treatment Upcoming Encounters Date Type Department Care Team (Late st Contact Info) Description 10/21/2024 1:30 PM CDT Office Visit [facility] - Rheumatology [address] [place] [address], [place] [phone] Paulino Youngblood MD [address] [place] [address] [place] [address] 11/30/2024 3:00 PM CDT Office Visit [facility] - ENT [address] [place] [address], [place] [phone] Froilan Monae MD [address] [place] [address] [place] [address] 02/15/2025 10:00 AM CDT Office Visit [facility] - Internal Med [address] [place] [phone] Richard Chacon III, MD [address] [place] [address] [address] [place] [phone] documented as of this encounter Procedures Procedure Name Priority Date/Time Associated Diagnosis Comments ED INCISION AND DRAINAGE Routine 06/18/2011 12:25 PM ANTISU[employer]AR[employer] OFFICER Cellulitis and abscess of unspecified site CULTURE ABSCESS STAT 06/18/2011 12:00 PM ANTISU[employer]ARINE [employer] OFFICER documented in this encounter Results * ED INCISION AND DRAINAGE (06/18/2011 12:25 PM ANTISUBMARINE [employer] OFFICER) Osiris Plummer, - 06/18/2011 12:25 PM ANTIS[employer] OFFICER Osiris Garza, DO ? 06/18/2011 12:25 PM Provider contact with the patient: 06/18/2011 ?11:59 AM Danis Horner [id number] [facility] EMERGENCY DEPT History Chief Complaint Patient presents [...] Drainage Date/Time: 06/18/2011 12:21 PM Performed by: OSIRIS GARZA Authorized by: OSIRIS GARZA Consent: Verbal consent obtained. Risks and benefits: [...] abscess of unspecified site ?? Procedure Note Osiris Garza, - 06/18/2011 11:59 AM CST Images from the original note were not included. Provider contact with the patient: 06/18/2011 11:59 AM Danis Horner [id number] [facility] EMERGENCY DEPT History Chief Complaint Patient presents [...] Drainage Date/Time: 06/18/2011 12:21 PM Performed by: OSIRIS GARZA Authorized by: OSIRIS GARZA Consent: Verbal consent obtained. Risks and benefits: [...] ? Cellulitis and abscess of unspecified site Osiris Garza DO PROCEDURE/MINOR SURG ICAL ORDERABLES * CULTURE ABSCESS (06/18/2011 12:00 PM ANTISU[employer] OFFICER) Result [facility] Comment: Final GRAM STAIN Rare [...] ENTIRE THUMB / Unknown 06/18/2011 12:00 PM ANTISU[employer]INE [employer] OFFICER 06/18/2011 1:32 PM ANTISUBMARINE WE[employer] OFFICER Narrative Resulting Agency Comment Performed By [facility];[address];[place] [address] Azam Strong MD LAB - MICROBIOLOGY O RDERABLES Performing Organization Address City/State/[facility] Co de Phone Number [facility] [address] [place] [address] documented in this encounter Visit Diagnoses Diagnosis Cellulitis and abscess of unspecified site documented in this encounter Administered Medications Inactive Administered Medications - up to 3 most recent administrations Medication Order MAR Action Action Date Dose Rate Site lidocaine (XYLOCAINE) 1 % injection Subcutaneous, ONCE, 1 dose, On Sat06/18/11 at 1200 $ Given 06/18/2011 11:47 AM ANTISUBMARINE [employer] OFFICER 6 mL See Comments lidocaine (XYLOCAINE) 1% injection ADS Med 1 dose, Starting on Sat06/18/11 at 1139, Until Sat06/18/11 at 1147, STORMY LESTER: cabinet override documented in this encounter Active and Recently Administered Medications Times are shown in ANTISUBMARINE WE[employer] OFFICER. Scheduled Medication Order 06/16/2011 06/17/2011 06/18/2011 lidocaine (XYLOCAINE) 1 % injection (COMPLETED) Subcutaneous, ONCE, 1 dose, On Sat06/18/11 at 1200 1147 ($ Given - Prov ider: Stormy Lester RN - Comment: right thumb injected by ) documented in this encounter
--- OUTSIDE RECORDS SUMMARY | 2024-07-15 18:39 | XMS_ITS | Encounter Summary ---
Author Organization [facility] Address [address] [place] [address] Care Team Providers Care Interior Wall Assembler Name Role Phone Unavailable Primary Care Provider Unavailabl e Reason for Visit * Reason Comments Pain Head Pt states he has a h x migraine headache. Took Excedrin headache medication and it helped a little bit. Denies fever. 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 Details Date Type Department Care Team (Late st Contact Info) Description 10/24/2015 12:49 PM CDT - 10/24/2015 3:31 PM CDT Emergency ER at [address] [address] Nguyễn Rodarte MD [address] [place] [id number] Migraine without status migrainosus, not intractable, unspecified migraine type Discharge Disposition: Home or Self Care Social History Tobacco Use Types Packs/Day Years Used Date Smoking Tobacco: Never Alcohol Use Standard Drinks/Week Comments No 0 (1 standard drink = 0.6 oz pur e alcohol) Sex and Gender Information Value Date Recorded Sex Assigned at Not on file Gender Identity Not on file Sexual Orientation Not on file documented as of this encounter Last Filed Vital Signs Vital Sign Reading Time Taken Comments Blood Pressure 119/74 10/24/2015 1:02 PM CDT Pulse 70 10/24/2015 3:29 PM CDT Temperature 36.8 ??C (98.2 ??F) 10/24/2015 3:29 PM CD T Respiratory Rate 16 10/24/2015 3:29 PM CDT Oxygen Saturation - - Inhaled Oxygen Concentration - - Weight 67.9 kg (149 lb 11.1 oz) 10/24/2015 1:02 PM CDT Height - - Body Mass Index - - documented in this encounter Discharge Instructions * Discharge Instructions* Mary Welsh MD - 10/24/2015 2:56 PM CDT Migraine Headache WHAT YOU SHOULD KNOW: A migraine is a severe headache. The pain can be so severe that it interferes with your daily activities. A migraine can last a few hours up to several days. The exact cause of migraines is not known. It may be caused by changes in your body chemicals and extra sensitive nerves in your brain. INSTRUCTIONS: Medicines: Take medicine as soon as you feel a migraine begin. ?? Pain medicine: You may need medicine to take away or decrease pain. You may need a doctor's order for this medicine. Do not wait until the pain is severe before you take your medicine. ?? Migraine medicines: These are used to help prevent a migraine or stop it once it starts. ?? Antinausea medicine: This medicine may be given to calm your stomach and to help prevent vomiting. They can also help relieve pain. ?? Take your medicine as directed. Call your healthcare provider if you think your medicine is not helping or if you have side effects. Tell him if you are allergic to any medicine. Keep a list of the medicines, vitamins, and herbs you take. Include the amounts, and when and why you take them. Bring the list or the pill bottles to follow-up visits. Carry your medicine list with you in case of an emergency. Manage your symptoms: ?? Rest: Rest in a dark, quiet room. This will help decrease your pain. ?? Ice: Ice helps decrease pain. Use an ice pack or put crushed ice in a plastic bag. Cover the icepack with a towel and place it on your head where it hurts for 15 to 20 minutes every hour. ?? Heat: Heat helps decrease pain and muscle spasms. Use a small towel dampened with warm water or a heating pad, or sit in a warm bath. Apply heat on the area for 20 to 30 minutes every 2 hours. Youmay alternate heat and ice. Keep a headache diary: Write down when your migraines start and stop. Include your symptoms and what you were doing when a migraine began. Record what you ate or drank for 24 hours before the migraine started. Describe the pain and where it hurts. Keep track of what you did to treat your migraine and whether it worked. Follow up with your primary healthcare provider or neurologist as directed: Bring your headache diary with you when you see your primary healthcare provider. Write down your questions so you rememberto ask them during your visits. Prevent another migraine: ?? Do not smoke: If you smoke, it is never too late to quit. Tobacco smoke can trigger a migraine. It can also cause heart disease, lung disease, cancer, and other health problems. Quitting smoking will improve your health and the health of those around you. If you smoke, ask for information about how to stop. ?? Do not drink alcohol: Alcohol can trigger a migraine. It can also interfere with the medicines used to treat your migraine. ?? Get regular exercise: Exercise may help prevent migraines. Talk to your primary healthcare provider about the best exercise plan for you. ?? Manage stress: Stress may trigger a migraine. Learn new ways to relax, such as deep breathing. ?? Stick to a sleep schedule: Go to bed and get up at the same time each day. ?? Eat regular meals: Include healthy foods such as include fruit, vegetables, whole-grain breads, low-fat dairy products, beans, lean meat, and fish. Avoid trigger foods like chocolate, hard cheese,and red wine. Foods that contain gluten, nitrates, MSG, or artificial sweeteners may also trigger migraines. Caffeine, which is often used to treat migraines, can also trigger them. Contact your primary healthcare provider or neurologist if: ?? You have a fever. ?? Your migraines interfere with your daily activities. ?? Your medicines or treatments stop working. ?? You have questions about your condition or care. Return to the emergency department if: ?? You have a headache that seems different or much worse than your usual migraine headache. ?? You have a severe headache with a fever or a stiff neck. ?? You have new problems with speech, vision, balance, or movement. ?? You feel like you are going to faint, you become confused, or you have a seizure. ?? 2015 [employer]. Information is for End User's use only and may not be sold, redistributed or otherwise used for commercial purposes. All illustrations and images included in CareNotes?? are the copyrighted property of [employer]. or Intent. The above information is an dietary aide cook only. It is not intended as medical advice for individual conditions or treatments. Talk to your doctor, nurse or pharmacist before following any medical regimen to see if it is safe and effective for you. documented in this encounter Medications at Time of Discharge Medication Sig Dispensed Refills Start Date End Date olanzapine (ZYPREXA) 10 MG tablet Take 1 (one) tablet by mouth once daily citalopram (CELEXA) 20 MG tablet Take 20 mg by mouth at bedtime 04/03/2021 documented as of this encounter ED Notes * Star Liang RN - 10/24/2015 3:31 PM CDT Discharge instructions reviewed with family member.Opportunity for questions, family member verbalized understanding of discharge plan for home.Pt showing no signs of distress at time of discharge. * Nguyễn Rodarte MD - 10/24/2015 1:32 PM CDT Provider contact with the patient: 10/24/2015 13:32 Manoj Horner [id number] [facility] EMERGENCY DEPARTMENT History Chief Complaint Patient presents with ??? Pain Head Pt states he has a hx migraine headache. Took Excedrin headache medication and it helped a little bit. Denies fever. 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 Unless appended by me below, I agree with findings as documented. HPI Manoj Horner is a 19 y.o. male, has h/o migraine headaches. Started with headache last night. Woke with headache today. Emesis today. Not improved with OTC pain meds. Review of Systems Review of Systems All relevant systems reviewed and all negative except as noted in resident and attending HPI/ROS. BP 119/74 mmHg Pulse 72 Temp(Src) 97.5 ??F Resp 16 Wt 67.9 kg (149 lb 11.1 oz) Physical Exam I have reviewed the resident/PIPE LINER physical exam. Unless appended by me below, I agree with the PE as documented. Physical Exam Appears uncomfortable, complaining of headache. Normal neuro exam here. Procedures Procedures ECG Interpretation ECG Interpretation Lab/SPO2 Interpretation No results found for this visit on 10/24/15. No orders to display Orders Placed This Encounter ??? 0.9 % nacl IV BOLUS 1,000 mL Sig: ??? ketorolac (TORADOL) injection 30 mg Sig: ??? metoclopramide (REGLAN) injection 20 mg Sig: ??? diphenhydrAMINE (BENADRYL) injection 50 mg Sig: Orders Placed This Encounter ??? 0.9 % nacl IV BOLUS 1,000 mL Sig: ??? ketorolac (TORADOL) injection 30 mg Sig: ??? metoclopramide (REGLAN) injection 20 mg Sig: ??? diphenhydrAMINE (BENADRYL) injection 50 mg Sig: Progress Notes ED Course: Plan for re-eval after migraine cocktail Feels better after meds, plan for home with NSAID's for pain Medical Decision Making The total time providing critical care (excluding time spent for procedures) was: 0 minutes. I have personally seen and examined this patient. I have fully participated in the care of this patient. I have reviewed all pertinent clinical information available to me during this encounter, including history, physical exam and plan. I have reviewed nursing notes, available labs and radiographic studies. With respect to physicians in training and mid-level providers, I agree with the assessment and plan except if revised in my note. Clinical Impression Final diagnoses: Migraine without status migrainosus, not intractable, unspecified migraine type * Mary Welsh MD - 10/24/2015 1:19 PM CDT EMERGENCY DEPARTMENT 10/24/2015 Dear Doctor, We had the pleasure of caring for your patient, Manoj Horner in our emergency department on 10/24/2015. A note from the provider(s) who cared for your patient is attached. Should you wish to access any laboratory results, please call . Should you wish to access any radiology results, please call , option 3. In addition, you can access patient information 24 hours a day, from any computer, through [facility], the online version of our electronic medical record. If you would like to use this service, please call Katrin Leach, Connectivity Coordinator, at . We appreciate the opportunity to care for your patients. If you would like additional information, please call the emergency department directly at . Sincerely, Mary Welsh MD Division of Emergency Medicine [facility], [place] [facility] [place] EMERGENCY DEPARTMENT Provider contact with the patient: 10/24/2015 13:19 Manoj Horner [id number] [facility] EMERGENCY DEPARTMENT History Chief Complaint Patient presents with ??? Pain Head Pt states he has a hx migraine headache. Took Excedrin headache medication and it helped a little bit. Denies fever. 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 Symptoms started last night with emesis x1. Took excedrin migraine last night, which helped a little bit, however symptoms resumed this AM. Pain 8-9/10. Excedrin again this AM, however did not help. Was getting them about once per week, but now gets migraine headaches 2-3x/week, with emesis. Never seen neurology before. Pain is mostly frontal or everywhere . Associated with emesis and blurry vision, photophobia, phonophobia. +occasional aura. +URI last week, no recent fevers. No diarrhea, +N. Bipolar, Autism Spectrum. On zyprexa and citalopram. NKMA. IUTD. Past Medical History Diagnosis Date ??? Bipolar 1 disorder No past surgical history on file. History Social History ??? Marital Status: Single Spouse Name: N/A Number of Children: N/A ??? Years of Education: N/A Occupational History ??? Not on file. Social History Main Topics ??? Smoking status: Never Smoker ??? Smokeless tobacco: Not on file ??? Alcohol Use: No ??? Drug Use: No ??? Sexual Activity: Not on file Other Topics Concern ??? Not on file Social History Narrative Medications Current Outpatient Prescriptions Medication Sig Dispense Refill ??? citalopram (CELEXA) 20 MG tablet Take 20 mg by mouth at bedtime ??? olanzapine (ZYPREXA) 10 MG tablet Take 10 mg by mouth once daily. Review of Systems Review of Systems Constitutional: Negative for fever. HENT: Negative for congestion and nosebleeds. Eyes: Positive for photophobia and visual disturbance. Respiratory: Negative for cough. Cardiovascular: Negative for chest pain. Gastrointestinal: Positive for nausea and vomiting. Genitourinary: Negative for hematuria. Musculoskeletal: Negative for myalgias. Skin: Negative for rash. Neurological: Positive for headaches. Negative for seizures and weakness. BP 119/74 mmHg Pulse 72 Temp(Src) 97.5 ??F Resp 16 Wt 67.9 kg (149 lb 11.1 oz) Physical Exam Physical Exam Constitutional: He is oriented to person, place, and time. He appears well- developed and well-nourished. No distress. HENT: Head: Normocephalic and atraumatic. Right Ear: External ear normal. Left Ear: External ear normal. Nose: Nose normal. Mouth/Throat: Oropharynx is clear and moist. No oropharyngeal exudate. Eyes: Conjunctivae and EOM are normal. Pupils are equal, round, and reactive to light. Neck: Neck supple. Cardiovascular: Normal rate, regular rhythm, normal heart sounds and intact distal pulses. No murmur heard. Pulmonary/Chest: Effort normal and breath sounds normal. No respiratory distress. He has no wheezes. Abdominal: Soft. Bowel sounds are normal. He exhibits no distension. There is no tenderness. There is no guarding. Musculoskeletal: He exhibits no edema or tenderness. 5/5 strength in upper and lower extremities bilaterally Lymphadenopathy: He has no cervical adenopathy. Neurological: He is alert and oriented to person, place, and time. No cranial nerve deficit. He exhibits normal muscle tone. Skin: Skin is warm and dry. No pallor. Procedures Procedures ECG Interpretation ECG Interpretation Lab/SPO2 Interpretation Progress Notes ED Course 19yo with history of migraines presenting with migraine with poor response to oral abortive medication. Given migraine cocktail of 1L NS bolus, IV toradol, metoclopramide, and bendaryl per protocol. Patient with complete resolution of headache symptoms. Discharged home with PCP follow up and neurology referral given history of increased headache frequency. Medical Decision Making Clinical Impression Final diagnoses: Migraine without status migrainosus, not intractable, unspecified migraine type * Nora Brody RN - 10/24/2015 1:00 PM CDT Pt arrives to er with mother and c/o having a headache starting one day ago. He reports n/v with headache. He is awake and able to answer questions. Reports a hx of migraines. Mother at the bedside calm and attentive. documented in this encounter Plan of Treatment Upcoming Encounters Date Type Department Care Team (Late st Contact Info) Description 10/21/2024 1:30 PM CDT Office Visit [facility] - Rheumatology [address] [place] [phone] Paulino Youngblood MD [address] [place] [address] [place] [phone] 11/30/2024 3:00 PM CDT Office Visit [facility] - ENT [address] [place] [phone] Froilan Monae MD [address] [place] [address] [place] [address] 02/15/2025 10:00 AM CDT Office Visit [facility] - Internal Med [address] [place] [phone] Richard Chacon III, MD [address] [phone] documented as of this encounter Visit Diagnoses Diagnosis Migraine without status migrainosus, not intractable, unspecified migraine type documented in this encounter Administered Medications Inactive Administered Medications - up to 3 most recent administrations Medication Order MAR Action Action Date Dose Rate Site 0.9 % nacl IV BOLUS 1,000 mL 1,000 mL, at 1,000 mL/hr, Administer over 60 Minutes, Intravenous, ONCE, 1 dose, On Sat10/24/15 at 1400 $ Given 10/24/2015 1:52 PM CDT 1,000 mL 1000 mL/h r diphenhydrAMINE (BENADRYL) injection 50 mg 50 mg, Intravenous, ONCE, 1 dose, On Sat10/24/15 at 1400, Max intravenous rate = 25 mg/min $ Given 10/24/2015 1:53 PM CDT 50 mg ketorolac (TORADOL) injection 30 mg 30 mg, Intravenous, ONCE, 1 dose, On Sat10/24/15 at 1400, Infuse SLOWLY over 1-5 minutes. $ Given 10/24/2015 1:56 PM CDT 30 mg metoclopramide (REGLAN) injection 20 mg 20 mg, Intravenous, ONCE, 1 dose, On Sat10/24/15 at 1400, Infuse over 15-30 minutes. $ Given 10/24/2015 1:57 PM CDT 20 mg documented in this encounter Active and Recently Administered Medications Times are shown in CDT. Scheduled Medication Order 10/22/2015 10/23/2015 10/24/2015 0.9 % nacl IV BOLUS 1,000 mL (COMPLETED) 1,000 mL, at 1,000 mL/hr, Administer over 60 Minutes, Intravenous, ONCE, 1 dose, On Sat10/24/15 at 1400 1352 ($ Given - Prov ider: Nora Brody RN)1452 (Due: Rx Stopped - Provider: Nora Brody RN) diphenhydrAMINE (BENADRYL) injection 50 mg (COMPLETED) 50 mg, Intravenous, ONCE, 1 dose, On Sat10/24/15 at 1400, Max intravenous rate = 25 mg/min 1353 ($ Given - Prov ider: Nora Brody RN) ketorolac (TORADOL) injection 30 mg (COMPLETED) 30 mg, Intravenous, ONCE, 1 dose, On Sat10/24/15 at 1400, Infuse SLOWLY over 1-5 minutes. 1356 ($ Given - Prov ider: Nora Brody RN) metoclopramide (REGLAN) injection 20 mg (COMPLETED) 20 mg, Intravenous, ONCE, 1 dose, On Sat10/24/15 at 1400, Infuse over 15-30 minutes. 1357 ($ Given - Prov ider: Nora Brody RN)1412 (Due: Rx Stopped - Provider: Nora Brody RN) documented in this encounter
--- OUTSIDE RECORDS SUMMARY | 2024-07-15 18:39 | XMS_ITS | Encounter Summary ---
Author Organization [facility] Health Address [address] [place] [address] Care Team Providers Care Recreation Superintendent Name Role Phone Unavailable Primary Care Provider Unavailabl e Reason for Visit * Reason Onset Date Comments Results 04/06/2021 Encounter Details Date Type Department Care Team (Late st Contact Info) Description 04/06/2021 Telephone [facility] [address] [place] [address], [place] [phone] Richard Chacon III, MD [address] [place] [phone] Results Social History Tobacco Use Types Packs/Day Years [...] AM CDT documented as of this encounter Miscellaneous Notes * Telephone Encounter - Jessie Rosas RN - 04/06/2021 3:25 PM CDT Incoming call was successful Pt's mom called in and received the providers recommendations. Pt's mom verbalized understanding. Provider: Per ?? Pts labs are WNL. Vit D noted to be normal. Pt should stop ergocalciferol and start cholecalciferol 1000IU daily. Rx sent to pharmacy * Telephone Encounter - Hayley Bhatia RN - 04/06/2021 2:35 PM CDT Per Pts labs are WNL. Vit D noted to be normal. Pt should stop ergocalciferol and start cholecalciferol 1000IU daily. Rx sent to pharmacy ?? Attempt 1: Placed call to patient per provider's request. Patient unavailable, voicemail left requesting return call. documented in this encounter Plan of Treatment Upcoming Encounters Date Type Department Care Team (Late st Contact Info) Description 10/21/2024 1:30 PM CDT Office Visit [facility] - Rheumatology [address] [place] [phone] Paulino Youngblood MD [address] [place] [address] [place] [phone] 11/30/2024 3:00 PM CDT Office Visit [facility] - ENT [address] [place] [phone] Froilan Monae MD [address] [place] [address] DEPT [place] [address] 02/15/2025 10:00 AM CDT Office Visit [facility] - Internal Med [address] [place] [phone] Richard Chacon III, MD [address] [place] [address] [place] [phone] documented as of this encounter Visit Diagnoses Not on filedocumented in this encounter
== END 2024-07-09 14:57 | disposition home or self-care (01) ==
LOC: ANHCSM 08:01
PROVIDERS: PCP Family Medicine; Visit Provider Nurse Practitioner Family
DX: G47.33 Obstructive sleep apnea (adult) (pediatric) (principal)
CPT/HCPCS: 95800

== ENCOUNTER 2024-07-29 14:33 | Outpatient (CLI) | payer MEDICAID, SELFPAY ==
--- NOTE | 2024-07-29 14:40 | ECHO_ITS ---
Patient Info Name: Manoj Horner Age: 28 years : 1995 Gender: Male Ht: 67 in Wt: 255 lbs BSA: 2.39 m2 HR: 94 bpm BP: 140 / 86 mmHg Technical Quality: Fair Exam Date: 07/29/2024 2:45 PM Exam Location: Echo Lab Patient Status: Outpatient Admit Date: 07/29/2024 Staff Ordering Physician: Riley Hutson APRN Ager Operator: Juvencio Miranda RDCS Attending Provider: Riley Hutson APRN Referring Physician: Haresh ECKERT; Exam Type: CA echo doppler color flow Study Info Indications - PRIMARY CENTRAL SLEEP APNEA Complete two-dimensional, color flow and Doppler transthoracic echocardiogram is performed. Summary 1. Complete two-dimensional, color flow and Doppler transthoracic echocardiogram is performed. 2. Left ventricular chamber dimension is normal. 3. Left ventricular systolic function is normal, estimated at 55-60%. 4. The left ventricular diastolic function is normal. 5. E/e' 5 is not elevated. Left Ventricle E/e' 5 is not elevated. Left ventricular chamber dimension is normal. Left ventricular systolic function is normal, estimated at 55-60%. The left ventricular diastolic function is normal. Right Ventricle Right ventricular chamber dimension is normal. Right ventricular systolic function is normal. Left Atria Left atrial chamber dimension is normal. Right Atria Right atrial chamber dimension is normal. Aortic Valve The aortic valve is trileaflet. There is no aortic valve stenosis. There is no aortic valve regurgitation. Pulmonic Valve There is no pulmonic regurgitation. Mitral Valve There is no mitral valve stenosis. There is no mitral valve regurgitation. Tricuspid Valve There is no tricuspid valve regurgitation. Pericardium/Pleural There is no pericardial effusion. Inferior Vena Cava Normal inferior vena cava with >50% collapse upon inspiration consistent with normal right atrial pressure, 5 mmHg. Aorta The aortic root size at the sinus of Valsalva is normal. Left Ventricular Outflow Tract Name Value Normal LVOT 2D LVOT Diameter 2.0 cm LVOT Doppler LVOT Peak Gradient 3 mmHg LVOT Mean Gradient 2 mmHg LVOT VTI 16 cm LVOT VTI/AV VTI Ratio 0.8 LVOT Stroke Volume 48 ml LVOT CO 4.3 l/min LVOT CI 1.8 l/min/m2 Pulmonic Valve Name Value Normal RVOT Doppler RVOT Peak Gradient 2 mmHg PV Doppler PV Peak Gradient 4 mmHg Mitral Valve Name Value Normal MV Doppler MV Decel [place] 649 cm/s2 MV PHT 35 ms MV Area (PHT) 6.3 cm2 4.0-5.0 MV Diastolic Function MV E Peak Velocity 79 cm/s MV A Peak Velocity 50 cm/s MV E/A 1.6 MV Decel Time 121 ms MV Annular TDI MV E/e' (Septal) 11.1 <=8.0 MV E/e' (Lateral) 4.0 <=8.0 MV E/e' (Average) 7.5 Tricuspid Valve Name Value Normal Estimated PAP/RSVP RA Pressure 5 mmHg <=5 Aorta Name Value Normal Ascending Aorta Ao Root Diameter (MM) 3.4 cm Ao Root Diam Index (MM) 1.4 cm/m2 Aortic Valve Name Value Normal AV Doppler AV Peak Velocity 114 cm/s AV Peak Gradient 5 mmHg AV Mean Gradient 3 mmHg AV VTI 19 cm AV Area (Cont Eq VTI) 2.6 cm2 >=3.0 AV Area (Cont Eq Juve) 2.3 cm2 AV Regurgitation 2D LVOT Area 3.1 cm2 Ventricles Name Value Normal LV Dimensions 2D/MM IVS Diastolic Thickness (2D) 1.1 cm 0.6-1.0 LVID Diastole (2D) 4.0 cm 4.2-5.8 LVIW Diastolic Thickness (2D) 1.8 cm 0.6-1.0 LVID Systole (2D) 2.8 cm 2.5-4.0 LVOT Diameter 2.0 cm LV Mass (2D Cubed) 222.55 g 88.00-224.00 LV Mass Index (2D Cubed) 93 g/m2 49-115 Relative Wall Thickness (2D) 0.90 LV Fractional Shortening/Ejection Fraction 2D/MM LV Fractional Shortening (2D) 30 % 25-43 LV EF (2D Teicholz) 57 % 52-72 LV Diastolic Volume (4C MOD) 81 ml LV EF (4C MOD) 35 % LV Diastolic Volume (2C MOD) 74 ml LV EF (2C MOD) 61 % LV Diastolic Volume (BP MOD) 78 ml 62-150 LV Diastolic Volume Index (BP MOD) 33 ml/m2 34-74 LV Systolic Volume (BP MOD) 39 ml 21-61 LV Systolic Volume Index (BP MOD) 16 ml/m2 11-31 LV EF (BP MOD) 50 % 52-72 LV Diastolic Length (4C) 7.2 cm LV Systolic Length (4C) 6.2 cm LV Stroke Volume (4C MOD) 29 ml Atria Name Value Normal LA Dimensions LA Dimension (MM) 2.7 cm 3.0-4.1 LA Volume (4C A-L) 26 ml LA Volume (BP A-L) 32 ml RA Dimensions RA Area (4C) 9.3 cm2 <=18.0 Report Signatures
--- OUTSIDE RECORDS SUMMARY | 2024-07-29 15:17 | XMS_ITS | Encounter Summary ---
Author Organization [facility] Address [address] [facility] [address] [place] [address] Care Team Providers Care Laboratory Aide Name Role Phone Christa Velez APRN-COMPUTER HARDWARE TECHNICIAN Unavailable [phone] Oswaldo BOSCH MD, Francis G Primary Care Provider [phone] Morgan Randhawa MD Unavailable Pineda Randhawa MD Unavailable Will Naqvi MD Unavailable Pineda Randhawa MD Unavailable Estee Peck MD Unavailable Oswaldo BOSCH MD, Francis G Unavailable Encounter Details Date Type Department Care Team (Late st Contact Info) Description 12/04/2021 Telephone [facility] [address] [place] [address] Vivian Tello MD No info [...] be scheduled next. Patient Call Back number: [phone] documented in this encounter Plan of Treatment Upcoming Encounters Date Type Department Care Team (Late st Contact Info) Description 10/21/2024 1:30 PM CDT Office Visit [facility] - Rheumatology [address] [place] [phone] Paulino Youngblood MD [address] [place] [address] [place] [phone] 11/30/2024 3:00 PM CDT Office Visit [facility] - ENT [address] [place] [phone] Froilan Monae MD [address] [place] [address] [place] [address] 02/15/2025 10:00 AM CDT Office Visit [facility] - Internal Med [address] [place] [phone] Richard Chacon III, MD [address] [place] [address] 2L [place] [phone] documented as of this encounter Visit Diagnoses Not on filedocumented in this encounter Care Teams Laboratory Aide Relationship Specialty Start Date End Date Richard Chacon III, MD [address] [place] [address] 2[place] [phone] PCP - General Internal Medicine 01/29/22 Richard Chacon III, MD [address] 2[address] [place] [phone] PCP - Attributed-[facility] NIYAH SALCIDO P4P 11/23/23 Christa Velez APRN-COMPUTER HARDWARE TECHNICIAN [address] [place] [phone] Psychiatrist Nurse Practitioner 08/07/21 Morgan Randhawa MD [address] [place] [place] [phone] Resident - PCP Internal Medicine 01/29/22 Pineda Randhawa MD [address] [place] [phone] Resident Rheumatology 12/24/22 Will Naqvi MD [address] [place] [phone] Dipper Machine Operator Rheumatology 12/24/22 Pineda Randhawa MD [address] [place] [address] Resident Rheumatology 02/04/23 Estee Peck MD [address]L [place] [address] Dermatology 02/04/23 documented as of this encounter
--- OUTSIDE RECORDS SUMMARY | 2024-07-29 15:17 | XMS_ITS | Encounter Summary ---
Author Organization [facility] Address [address] [facility] [place] [address] Care Team Providers Care Olap Developer Name Role Phone Christa Velez APRN-CHIEF MECHANICAL OFFICER Unavailable Oswaldo BOSCH MD, Francis G Primary Care Provider [phone] Morgan Randhawa MD Unavailable Pineda Randhawa MD Unavailable Will Naqvi MD Unavailable Pineda Randhawa MD Unavailable Estee Peck MD Unavailable [phone] Oswaldo BOSCH MD, Francis G Unavailable Encounter Details Date Type Department Care Team (Late st Contact Info) Description 07/24/2024 Orders Only [facility] - Rheumatology [address] [place] [address], [place] [address] Paulino Youngblood MD [address] [place] [address] [place] [address] Psoriatic arthritis (HCC) ; Psoriasis Social History Tobacco Use Types Packs/Day [...] Office Visit [facility] - Rheumatology [address] [place] [phone] Paulino Youngblood MD [address] [place] [address] [place] [phone] 11/30/2024 3:00 PM CDT Office Visit [facility] - ENT [address] [place] [phone] Froilan Monae MD [address] [place] [address] 2L [place] [address] 02/15/2025 10:00 AM CDT [facility] [address] [place] [phone] Richard Chacon III, MD [address] [place] [address] 2[place] [phone] documented as of this encounter Visit Diagnoses Diagnosis Psoriatic arthritis (HCC)- Primary Psoriatic arthropathy Psoriasis Other psoriasis documented in this encounter Care Teams Olap Developer Relationship Specialty Start Date End Date Richard Chacon III, MD [address] [place] [address] 2[place] [phone] PCP - General Internal Medicine 01/29/22 Richard Chacon III, MD [address] [place] [address] 2[place] [phone] PCP - Attributed-[facility] NIYAH SALCIDO P4P 11/23/23 Christa Velez APRN-CHIEF MECHANICAL OFFICER [address] [place] [address] [place], [place] [phone] Psychiatrist Nurse Practitioner 08/07/21 Morgan Randhawa MD [address] [facility] [place] [phone] Resident - PCP Internal Medicine 01/29/22 Pineda Randhawa MD [address] [facility] [place] [address] Resident Rheumatology 12/24/22 Will Naqvi MD [address] [place] [address] Gum Rolling Machine Tender Rheumatology 12/24/22 Pineda Randhawa MD [address] [facility] [address] [place] [address] Resident Rheumatology 02/04/23 Estee Peck MD [address] [facility] 3L DE[place] [address] Dermatology 02/04/23 documented as of this encounter
--- OUTSIDE RECORDS SUMMARY | 2024-07-29 15:17 | XMS_ITS | Referral Summary ---
Author Organization [facility] Address [address] [facility] [place] [address] Care Team Providers Care Environmental Services Worker Name Role Phone Christa Velez APRN-MARKETING LEAD Unavailable Oswaldo BOSCH MD, Francis G Primary Care Provider [phone] Morgan Randhawa MD Unavailable Pineda Randhawa MD Unavailable Will Naqvi MD Unavailable [phone] Pineda Randhawa MD Unavailable Estee Peck MD Unavailable [phone] Oswaldo BOSCH MD, Francis G Unavailable Source Comments [facility],non-owned Affiliates and Associated Physician Practices is amultiple site organization consisting of ambulatory clinics and hospital sitesin [place], [place], [place] and [place]. This disclosure is being madepursuant to the Care Everywhere program and may not contain all information available regarding this patient. Last updated 18.[facility] Encounters Date Type Department Care Team Description 07/24/2024 Orders Only [facility] - Rheumatology [address] [place] [address], [place] [address] Paulino Youngblood MD Psoriatic arthritis (HCC) ; Psoriasis 06/07/2024 Refill [facility] - Rheumatology [address] [place] [address] Paulino Youngblood MD Refill Request 06/01/2024 2:30 PM REGIONAL GUIDE Office Visit [facility] [address] [facility], [place] [address] Froilan Monae MD Dysfunction of both eustachian [...] MORNING 03/08/2021 Active ketoconazole (NIZORAL) 2 % shampooIndicatio ns:Other psoriasis Apply to wet hair, leave on for 3 minutes, then rinse; three times weekly. 30 days supply 120 mL 11 04/17/2021 Active folic acid (FOLVITE) 1 MG tabletIndication s:Other psoriasis Take 1 daily except the day you take methotrexate 30 tablet 11 07/07/2021 Active calcipotriene (DOVONEX) 0.005 % creamIndications :Other psoriasis Apply to affected area 2 times daily 60 g 3 10/16/2021 Active clobetasol (TEMOVATE) 0.05 % ointmentIndicati ons:Other psoriasis APPLY TOPICALLY TO AFFECTED AREA(S) OF KNEES AND ELBOWS TWICE DAILY 60 g 3 10/16/2021 Active vitamin D3 (Cholecalciferol ) 25 MCG (1000 UNITS) tablet Take 1 (one) tablet by mouth once daily 05/06/2022 Active melatonin 3 MG tablet TAKE 1 TABLET BY MOUTH AT BEDTIME 90 tablet 11 04/23/2023 Active metFORMIN ER 24hr (Glucophage XR) 500 MG tabletIndication s:Prediabetes Take 1 (one) tablet by mouth every evening 180 tablet 3 02/12/2024 Active secukinumab (Cosentyx Sensoready, 300 MG,) 150 MG/ML SOAJ penIndications:P soriatic arthritis (HCC) Inject 300 (three hundred) mg [...] TWICE DAILY 120 tablet 1 06/08/2024 Active ixekizumab (Taltz) 80 MG/ML auto-injector penIndications:P soriatic Arthritis Inject 2 mL subcutaneously every 14 days for 14 days, THEN 1 mL every 14 days for 70 days, THEN 1 mL every 28 days for 90 days. Reasons: Psoriasis associated with Arthritis. 10 mL 07/24/2024 01/14/2025 Active Active Problems Problem Noted Date Diagnosed [...] Comments Blood Pressure 113/78 06/01/2024 2:32 PM REGIONAL GUIDE Pulse 98 06/01/2024 2:32 PM REGIONAL GUIDE Temperature 37.1 C (98.7 F) 02/12/2024 1:37 PM CDT Respiratory Rate 18 03/19/2022 2:48 PM CDT Oxygen Saturation 96% 02/12/2024 1:37 PM CDT Inhaled Oxygen Concentration - - Weight 120.8 kg (266 lb 6.4 oz) 06/01/2024 2:32 PM REGIONAL GUIDE Height 170.2 cm (5' 7 ) 06/01/2024 2:32 PM REGIONAL GUIDE Body Mass Index 41.72 06/01/2024 2:32 PM REGIONAL GUIDE Plan of Treatment Upcoming Encounters Date Type Department Care Team (Late st Contact Info) Description 10/21/2024 1:30 PM CDT Office Visit [facility] - Rheumatology [address] [place] [address], [facility] [place] [phone] Paulino Youngblood MD [address] [place] [address] [place] [phone] 11/30/2024 3:00 PM CDT Office Visit [facility] E[facility] [address] [place] [address], [place] [phone] Froilan Monae MD [address] [place] [address] 2L [place] [address] 02/15/2025 10:00 AM CDT Office Visit [facility] - Internal Med [address] [place] [phone] Richard Chacon III, MD [address] [place] [address] 2[place] [phone] Procedures Procedure Name Priority Date/Time Associated Diagnosis Comments [place] REMOVE CERUMEN IMPACTED W INSTR LEFT EAR Routine 06/01/2024 3:18 PM REGIONAL GUIDE Impacted cerumen of left ear HIV-1 HIV-2 ANTIBODY + HIV P24 AG PANEL Routine 07/24/2023 2:25 PM REGIONAL GUIDE Routine general medical examination at health care facility HEPATITIS C AB W/RFLX TO HCV RNA QN PCR Routine 07/05/2021 11:11 AM REGIONAL GUIDE High risk medications (not anticoagulants) long-term use from Last 3 Months or Most Recently Relevant to Health Maintenance Results * [place] REMOVE CERUMEN IMPACTED W INSTR LEFT EAR (06/01/2024 3:18 PM REGIONAL GUIDE) Narrative Froilan Monae MD - 06/01/2024 3:18 PM REGIONAL GUIDE Froilan Monae MD 06/01/2024 3:19 PM Procedure: Binocular Microscopic Removal of Impacted Cerumen [...] There was no bleeding Froilan Monae MD Froilan Monae MD PROCEDURE/MINOR JAJA GICAL ORDERABLES * HIV-1 HIV-2 ANTIBODY + HIV P24 AG PANEL (07/24/2023 2:25 PM REGIONAL GUIDE) HIV Antigen/Antibod y 1 & 2 Non-reacti ve Non-react brian 07/24/2023 3:[address] [facility] Comment:No Laboratory eviden ce of HIV infection. Blood BLOOD SPECIMEN / Unknown Lab Venipuncture / Unknown 07/24/2023 2:25 PM REGIONAL GUIDE 07/24/2023 2:56 PM REGIONAL GUIDE Richard Chacon III, MD LAB - CHEMISTRY O RDERABLES [facility] [address] [place] [address], [facility] [phone] * HEPATITIS C AB W/RFLX TO HCV RNA QN PCR (07/05/2021 11:11 AM REGIONAL GUIDE) Hepatitis C Antibody NON-REACTI VE NON-REACT [facility] Signal to Cut-Off 0.01 <1.00 [facility] Comment: HCV antibody was non-reactive. There is no laboratory evidence of HCV infection. In most cases, no further action is required. However, if recent HCV exposure is suspected, a test for HCV RNA (test code 57610) is suggested. For additional information please refer to http://education.[employer]/faq/TZI00r9 (This link is being provided for informational/ educational purposes only.) REPORT COMMENT: FASTING:NO Test Performed at: [facility] [address] [place] [address] SIRIA AGUILAR DO,MPH Blood BLOOD SPECIMEN / Unknown 07/05/2021 11:11 AM REGIONAL GUIDE 07/05/2021 11:12 AM REGIONAL GUIDE Estee Peck MD LAB - CHEMISTRY ALEENA HERNANDEZ [facility] Organization Address City/State/ZIP Co de Phone Number [facility] [address] [place] [address] from Last 3 Months or Most Recently Relevant to Health Maintenance Care Teams Environmental Services Worker Relationship Specialty Start Date End Date Richard Chacon III, MD [address] [facility] 2L [place] [phone] PCP - General Internal Medicine 01/29/22 Richard Chacon III, MD [address] [facility] 2[place] [phone] PCP - Attributed-[facility] NIYAH SALCIDO P4P 11/23/23 Christa Velez APRN-MARKETING LEAD [address] [place] [address] Psychiatrist Nurse Practitioner 08/07/21 Morgan Randhawa MD [address] [facility] [place] [phone] Resident - PCP Internal Medicine 01/29/22 Pineda Randhawa MD [address] [place] [address] Resident Rheumatology 12/24/22 Will Naqvi MD [address] [place] [address] Video News Editor Rheumatology 12/24/22 Pineda Randhawa MD [address] [place] [address] Resident Rheumatology 02/04/23 Estee Peck MD [address] [facility] 3L DE[place] [address] Dermatology 02/04/23
--- OUTSIDE RECORDS SUMMARY | 2024-07-29 15:17 | XMS_ITS | Clinical Summary ---
Author Organization [facility] Address [address] [facility] [place] [address] Care Team Providers Care Cnc Operator Programmer Name Role Phone Christa Velez APRN-RIVET HOLE MACHINE OPERATOR Unavailable [phone] Oswaldo BOSCH MD, Francis G Primary Care Provider [phone] Morgan Randhawa MD Unavailable Pineda Randhawa MD Unavailable Will Naqvi MD Unavailable Pineda Randhawa MD Unavailable Estee Peck MD Unavailable Oswaldo BOSCH MD, Francis G Unavailable Source Comments [facility],non-owned Affiliates and Associated Physician Practices is amultiple site organization consisting of ambulatory clinics and hospital sitesin [place], [place], [place] and [place]. This disclosure is being madepursuant to the Care Everywhere program and may not contain all information available regarding this patient. Last updated 18.[facility] Allergies Active Allergy Reactions Criticality Noted [...] Orders Only [facility] - Rheumatology [address] [place] [phone] Paulino Youngblood MD Psoriatic arthritis (HCC) ; Psoriasis 06/07/2024 Refill [facility] - Rhe[facility]ology [address] [place] [phone] Paulino Youngblood MD Refill Request 06/01/2024 2:30 PM REMOTE SENSING TECHNOLOGIST Office Visit [facility] - ENT [address] [place] [phone] Froilan Monae MD Dysfunction of both eustachian [...] Comments Blood Pressure 113/78 06/01/2024 2:32 PM REMOTE SENSING TECHNOLOGIST Pulse 98 06/01/2024 2:32 PM REMOTE SENSING TECHNOLOGIST Temperature 37.1 C (98.7 F) 02/12/2024 1:37 PM CDT Respiratory Rate 18 03/19/2022 2:48 PM CDT Oxygen Saturation 96% 02/12/2024 1:37 PM CDT Inhaled Oxygen Concentration - - Weight 120.8 kg (266 lb 6.4 oz) 06/01/2024 2:32 PM REMOTE SENSING TECHNOLOGIST Height 170.2 cm (5' 7 ) 06/01/2024 2:32 PM REMOTE SENSING TECHNOLOGIST Body Mass Index 41.72 06/01/2024 2:32 PM REMOTE SENSING TECHNOLOGIST Plan of Treatment Upcoming Encounters Date Type Department Care Team (Late st Contact Info) Description 10/21/2024 1:30 PM CDT Office Visit [facility] - Rheumatology [address] [place] [phone] Paulino Youngblood MD [address] [place] [address] [place] [phone] 11/30/2024 3:00 PM CDT Office Visit [facility] - ENT [address] [place] [address], [place] [phone] Froilan Monae MD [address] [place] [address] [place] [address] 02/15/2025 10:00 AM CDT Office Visit [facility] - Internal Med [address] [place] [phone] Richard Chacon III, MD [address] [place] [address] 2L [place] [phone] Health Maintenance Due Date Last Done Comments [...] Procedure Name Priority Date/Time Associated Diagnosis Comments ID REMOVE CERUMEN IMPACTED W INSTR LEFT EAR Routine 06/01/2024 3:18 PM REMOTE SENSING TECHNOLOGIST Impacted cerumen of left ear HIV-1 HIV-2 ANTIBODY + HIV P24 AG PANEL Routine 07/24/2023 2:25 PM REMOTE SENSING TECHNOLOGIST Routine general medical examination at health care facility HEPATITIS C AB W/RFLX TO HCV RNA QN PCR Routine 07/05/2021 11:11 AM REMOTE SENSING TECHNOLOGIST High risk medications (not anticoagulants) long-term use from Last 3 Months or Most Recently Relevant to Health Maintenance Results * ID REMOVE CERUMEN IMPACTED W INSTR LEFT EAR (06/01/2024 3:18 PM REMOTE SENSING TECHNOLOGIST) Narrative Froilan Monae MD - 06/01/2024 3:18 PM REMOTE SENSING TECHNOLOGIST Froilan Monae MD 06/01/2024 3:19 PM Procedure: [...] HIV P24 AG PANEL (07/24/2023 2:25 PM REMOTE SENSING TECHNOLOGIST) HIV Antigen/Antibod y 1 & 2 Non-reacti ve Non-react brian 07/24/2023 3:43 PM REMOTE SENSING TECHNOLOGIST [facility] Comment:No Laboratory eviden ce of HIV infection. Blood BLOOD SPECIMEN / Unknown Lab Venipuncture / Unknown 07/24/2023 2:25 PM REMOTE SENSING TECHNOLOGIST 07/24/2023 2:56 PM REMOTE SENSING TECHNOLOGIST Richard Chaocn III, MD LAB - CHEMISTRY Deni DIAZ [facility] [address] [place] [address], [facility] [phone] * HEPATITIS C AB W/RFLX TO HCV RNA QN PCR (07/05/2021 11:11 AM REMOTE SENSING TECHNOLOGIST) Hepatitis C Antibody NON-REACTI VE NON-REACT [facility] Signal to Cut-Off 0.01 <1.00 [facility] Comment: HCV antibody was non-reactive. There is no laboratory evidence of HCV infection. In most cases, no further action is required. However, if recent HCV exposure is suspected, a test for HCV RNA (test code 18558) is suggested. For additional information please refer to http://education.[employer]/faq/FFQ58s3 (This link is being provided for informational/ educational purposes only.) REPORT COMMENT: FASTING:NO Test Performed at: [facility] [address] [place] [address] SIRIA AGUILAR DO,MPH Blood BLOOD SPECIMEN / Unknown 07/05/2021 11:11 AM REMOTE SENSING TECHNOLOGIST 07/05/2021 11:12 AM REMOTE SENSING TECHNOLOGIST Estee Peck MD LAB - CHEMISTRY ALEENA HERNANDEZ [facility] [address] [place] [address] from Last 3 Months or Most Recently Relevant to Health Maintenance Care Teams Cnc Operator Programmer Relationship Specialty Start Date End Date Richard Chacon III, MD [address] 2L [place] [phone] PCP - General Internal Medicine 01/29/22 Richard Chacon III, MD [address] 2L [place] [phone] PCP - [facility] NIYAH SALCIDO P4P 11/23/23 Christa Velez APRN-RIVET HOLE MACHINE OPERATOR [address] [address] Psychiatrist Nurse Practitioner 08/07/21 Morgan Randhawa MD [address] [facility] [place] [place] [phone] Resident - PCP Internal Medicine 01/29/22 Pineda Randhawa MD [address] [facility] [place] [address] Resident Rheumatology 12/24/22 Will Naqvi MD [address] [facility] 2L [place] [address] Set Up Mechanic Coil Winding Machines Rheumatology 12/24/22 Pineda Randhawa MD [address] [place] [address] [place] [phone] Resident Rheumatology 02/04/23 Estee Peck MD [address] [place] [address] Dermatology 02/04/23
--- OUTSIDE RECORDS SUMMARY | 2024-07-29 15:18 | XMS_ITS | Encounter Summary ---
Author Organization [facility] Address [address] [facility] [place] [address] Care Team Providers Care Student Support Advisor Name Role Phone Christa Velez APRN-RICE MILLING SUPERVISOR Unavailable Oswaldo BOSCH MD, Francis G Primary Care Provider [phone] Morgan Randhawa MD Unavailable Pineda Randhawa MD Unavailable Will Navqi MD Unavailable [phone] Pineda Randhawa MD Unavailable Estee Peck MD Unavailable [phone] Oswaldo BOSCH MD, Francis G Unavailable Reason for Visit * Reason Onset Date Comments MEDICATION REFILL 09/09/2023 Encounter Details Date Type Department Care Team (Late st Contact Info) Description 09/09/2023 Refill [facility] [address] [place] [address] Estee Peck MD [address] [facility] [address] [place] [address] MEDICATION REFILL Social History Tobacco [...] Office Visit [facility] - Rheumatology [address] [place] [phone] Paulino Youngblood MD [address] [place] [address] [place] [address] 11/30/2024 3:00 PM CDT Office Visit [facility] - ENT [address] [place] [phone] Froilan Monae MD [address] [place] [address] [place] [address] 02/15/2025 10:00 AM CDT Office Visit [facility] - Internal Med [address] [place] [phone] Richard Chacon III, MD [address] [place] [address] 2[place] [address] documented as of this encounter Visit Diagnoses Diagnosis Other psoriasis documented in this encounter Care Teams Student Support Advisor Relationship Specialty Start Date End Date Richard Chacon III, MD [address] [place] [address] 2[place] [address] PCP - General Internal Medicine 01/29/22 Richard Chacon III, MD [address] 2[address] [place] [phone] PCP - [facility] NIYAH SALCIDO P4P 11/23/23 Christa Velez APRN-RICE MILLING SUPERVISOR [address] [place] [address] Psychiatrist Nurse Practitioner 08/07/21 Morgan Randhawa MD [address] [place] [phone] Resident - PCP Internal Medicine 01/29/22 Pineda Randhawa MD [address] [place] [phone] Resident Rheumatology 12/24/22 Will Naqvi MD [address] [place] [address] Food Service Employee Rheumatology 12/24/22 Pineda Randhawa MD [address] [place] [phone] Resident Rheumatology 02/04/23 Estee Peck MD [address] DE[place] [address] Dermatology 02/04/23 documented as of this encounter
--- OUTSIDE RECORDS SUMMARY | 2024-07-29 15:18 | XMS_ITS | Patient Health Summary ---
Author Organization [facility] Address [address] [place] [address] Care Team Providers Care Virology Teacher Name Role Phone Christa Velez APRN-MANAGER ADV[employer] Unavailable [phone] Oswaldo BOSCH MD, Francis G Primary Care Provider [phone] Morgan Randhawa MD Unavailable Pineda Randhawa MD Unavailable Will Naqvi MD Unavailable Pineda Randhawa MD Unavailable Estee Peck MD Unavailable [phone] Oswaldo BOSCH MD, Francis G Unavailable Note from [facility],non-owned Affiliates and Associated Physician Practices is amultiple site organization consisting of ambulatory clinics and hospital sitesin [place], [place], [place] and [place]. This disclosure is being madepursuant to the Care Everywhere program and may not contain all information available regarding this patient. Last updated 18.[facility] Allergies * Food(Headache) -Low Criticality Medications * [...] MOUTH TWICE DAILY 1 refill by 06/08/2025 * ixekizumab (Taltz) 80 MG/ML auto-injector pen(Started 07/24/2024) Inject 2 mL subcutaneously every 14 days for 14 days, THEN 1 mL every 14 days for 70 days, THEN 1 mL every 28 days for 90 days. Reasons: Psoriasis associated with Arthritis. Active Problems Problem Noted Date Diagnosed Date [...] Comments Blood Pressure 113/78 06/01/2024 2:32 PM CUSTOMER SERVICE TRAINER Pulse 98 06/01/2024 2:32 PM CUSTOMER SERVICE TRAINER Temperature 37.1 C (98.7 F) 02/12/2024 1:37 PM CDT Respiratory Rate 18 03/19/2022 2:48 PM CDT Oxygen Saturation 96% 02/12/2024 1:37 PM CDT Inhaled Oxygen Concentration - - Weight 120.8 kg (266 lb 6.4 oz) 06/01/2024 2:32 PM CUSTOMER SERVICE TRAINER Height 170.2 cm (5' 7 ) 06/01/2024 2:32 PM CUSTOMER SERVICE TRAINER Body Mass Index 41.72 06/01/2024 2:32 PM CUSTOMER SERVICE TRAINER Procedures * MO REMOVE CERUMEN IMPACTED W INSTR LEFT EAR(Performed 06/01/2024) Performed for Impacted cerumen of left ear * MO REMOVE CERUMEN IMPACTED W INSTR ARMIDA(Performed 01/13/2024) Performed for Bilateral impacted cerumen * ERYTHROCYTE SEDIMENTATION RATE(Performed 11/22/2023) Performed for Psoriatic arthritis (HCC), 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[facility]), Psoriasis * C-REACTIVE PROTEIN(Performed 11/22/2023) Performed for Psoriatic arthritis (HCC), 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HCC), Psoriasis * COMPREHENSIVE METABOLIC PANEL(Performed 11/22/2023) Performed for Psoriatic arthritis (HCC), 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HCC), Psoriasis * CBC W AUTO DIFFERENTIAL(Performed 11/22/2023) Performed for Psoriatic arthritis (HCC), 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HCC), Psoriasis * QUANTIFERON-TB GOLD PLUS 4-TUBE(Performed 11/22/2023) Performed for Psoriatic arthritis (HCC), Psoriasis, 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HCC), Screening-pulmonary TB * XR SI JOINTS 3VW OR MORE(Performed 10/17/2023) Performed for Psoriatic arthritis (HCC), 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HCC), Psoriasis * XR WRIST RIGHT 2VW(Performed 10/17/2023) [...] type, unspecified whether serious comorbidity present * MO EAR MICROSCOPY EXAMINATION(Performed 03/21/2023) Performed for Excessive cerumen in both ear canals * AUDIOLOGY/TYMPANOMETRY ORDER(Performed 03/21/2023) * COMPREHENSIVE METABOLIC PANEL(Performed 06/06/2022) Performed for Psoriatic arthritis (HCC), Therapeutic drug monitoring * CBC W AUTO DIFFERENTIAL(Performed 06/06/2022) Performed for Psoriatic arthritis (HCC), Therapeutic drug monitoring * MO EAR MICROSCOPY EXAMINATION(Performed 03/19/2022) Performed for Dysfunction [...] site * CULTURE ABSCESS(Performed 06/18/2011) Results * MO REMOVE CERUMEN IMPACTED W INSTR LEFT EAR (06/01/2024 3:18 PM CUSTOMER SERVICE TRAINER) Froilan Ferrer MD - 06/01/2024 3:18 PM CUSTOMER SERVICE TRAINER Froilan Monae MD 06/01/2024 3:19 PM Procedure: [...] Monae MD PROCEDURE/MINOR JAJA GICAL ORDERABLES * MO REMOVE CERUMEN IMPACTED W INSTR ARMIDA (01/13/2024 3:26 PM CDT) Froilan Ferrer MD - 01/13/2024 3:26 PM CDT Froilan Monae MD 01/13/2024 3:26 PM Procedure: Binocular Microscopic Removal of Impacted [...] of3 resultswithin the time period is included. QuantiFERON Mitogen Minus NIL 9.99 IU/mL 11/27/2023 8:48 PM CDT [facility] ([facility]) QuantiFERON Nil Value 0.01 IU/mL 11/27/2023 8:48 PM CDT [facility] ([facility]) QuantiFERON Plus TB1 Minus NIL 0.02 <=0.34 IU/mL 11/27/2023 8:48 PM CDT [facility] ([facility]) QuantiFERON Plus TB2 Minus NIL 0.03 <=0.34 IU/mL 11/27/2023 8:48 PM CDT [facility] ([facility]) QuantiFERON-TB Gold Plus Negative Negative 11/27/2023 8:48 PM CDT [facility] ([facility]) Comment: INTERPRETIVE INFORMATION:Quantiferon TB Gold Plus [...] Mycobacterium tuberculosis Infection -- [place], 2010 (http://www.cdc.gov/mmwr/preview/mmwrhtml/hy7133g8.htm), for more information concerning test performance in low-prevalence populations and use in occupational screening. Performed By: [address] [address] Stone Rigger: Woo Bee MD, PhD CLIA Number: [id number] Blood BLOOD SPECIMEN / Unknown Lab Venipuncture / Unknown 11/22/2023 9:49 AM CDT 11/22/2023 9:57 AM CDT Guillermo Galicia MD LAB - CHEMISTRY [facility] ([facility]) [address] [place] [id number] * (ABNORMAL) C-REACTIVE PROTEIN (11/22/2023 9:49 AM CDT) Only the most recent of2 resultswithin the time period is included. C-Reactive Protein 0.7(H) <=0.5 mg/dL 11/22/2023 10:29 AM CDT [facility] Blood BLOOD SPECIMEN / Unknown Lab Venipuncture / Unknown 11/22/2023 9:49 AM CDT 11/22/2023 10:01 AM CDT Will Naqvi MD LAB - CHEMISTRY [facility] [address] [address], [place] [phone] * ERYTHROCYTE SEDIMENTATION RATE (11/22/2023 9:49 AM CDT) Only the most recent of2 resultswithin the time period is included. Erythrocyte Sedimentation Rate Westergren 6 0 - 15 MM/HR 11/22/2023 10:16 AM CDT [facility] Blood BLOOD SPECIMEN / Unknown Lab Venipuncture / Unknown 11/22/2023 9:49 AM CDT 11/22/2023 10:01 AM CDT Will Naqvi MD LAB - HEMATOLOGY ORD ERABLES [facility] [address] [place] [address], [facility] [phone] * (ABNORMAL) CBC WITH DIFFERENTIAL (11/22/2023 9:49 AM T) Only the most recent of9 resultswithin the time period is included. WBC 5.9 4.0 - 10.7 x10E9/L 11/22/2023 10:09 AM [facility] RBC Count 4.46 4.30 - 5.80 x10E12/L 11/22/2023 10:09 AM [facility] Hemoglobin 12.7(L) 13.3 - 17.5 g/dL 11/22/2023 10:09 AM [facility] Hematocrit 37.3(L) 38.7 - 51.1 % 11/22/2023 10:09 AM [facility] MCV 83.6 80.0 - 98.0 fL 11/22/2023 10:09 AM [facility] MCH 28.5 26.7 - 33.6 pg 11/22/2023 10:09 AM [facility] MCHC 34.0 31.7 - 36.3 g/dL 11/22/2023 10:09 AM [facility] RDW-CV 13.3 11.3 - 14.8 % 11/22/2023 10:09 AM [facility] Platelet Count 195 150 - 420 x10E9/L 11/22/2023 10:09 AM [facility] MPV 9.7 7.8 - 11.4 fL 11/22/2023 10:09 AM [facility] Neutrophil % 71.2 41.0 - 74.0 % 11/22/2023 10:09 AM [facility] Lymphocyte % 21.5 17.0 - 47.0 % 11/22/2023 10:09 AM [facility] Monocyte % 3.8 3.0 - 11.0 % 11/22/2023 10:09 AM [facility] Eosinophil % 1.9 0.0 - 7.0 % 11/22/2023 10:09 AM [facility] Basophil % 0.7 0.0 - 1.6 % 11/22/2023 10:09 AM [facility] Immature Granulocytes % 0.9 0.0 - 1.0 % 11/22/2023 10:09 AM [facility] Neutrophil Absolute 4.18 1.60 - 7.50 x10E9/L 11/22/2023 10:09 AM [facility] Lymphocyte Absolute 1.26 1.00 - 4.40 x10E9/L 11/22/2023 10:09 AM [facility] Monocyte Absolute 0.22 0.15 - 1.00 x10E9/L 11/22/2023 10:09 AM [facility] Eosinophil Absolute 0.11 0.00 - 0.60 x10E9/L 11/22/2023 10:09 AM [facility] Basophil Absolute 0.04 0.00 - 0.13 x10E9/L 11/22/2023 10:09 AM [facility] Blood BLOOD SPECIMEN / Unknown Lab Venipuncture / Unknown 11/22/2023 9:49 AM CDT 11/22/2023 10:01 AM T Will Naqvi MD LAB - HEMATOLOGY ORD ERABLES Performing Organization Address City/State/[facility] Co de Phone Number [facility] [address] [place] [address], [facility] [phone] * (ABNORMAL) COMPREHENSIVE METABOLIC PANEL (11/22/2023 9:49 AM T) Only the most recent of10 resultswithin the time period is included. BUN 11 7 - 26 mg/dL 11/22/2023 10:29 AM [facility] Creatinine 1.10 0.71 - 1.16 mg/dL 11/22/2023 10:29 AM [facility] Sodium 138 136 - 145 mmol/L 11/22/2023 10:29 AM [facility] Potassium 3.9 3.5 - 4.5 mmol/L 11/22/2023 10:29 AM [facility] Chloride 109(H) 98 - 107 mmol/L 11/22/2023 10:29 AM [facility] CO2 22 22 - 29 mmol/L 11/22/2023 10:29 AM [facility] Glucose 172(H) 70 - 115 mg/dL 11/22/2023 10:29 AM [facility] Calcium 9.4 8.4 - 10.2 mg/dL 11/22/2023 10:29 AM [facility] Protein Total 6.6 6.0 - 8.3 g/dL 11/22/2023 10:29 AM [facility] Albumin 3.8 3.4 - 5.0 g/dL 11/22/2023 10:29 AM [facility] Bilirubin Total 0.3 0.2 - 1.2 mg/dL 11/22/2023 10:29 AM [facility] Alkaline Phosphatase 121 40 - 150 U/L 11/22/2023 10:29 AM [facility] ALT 49 5 - 55 U/L 11/22/2023 10:29 AM [facility] AST 17 5 - 34 U/L 11/22/2023 10:29 AM [facility] Anion Gap 7 6 - 16 11/22/2023 10:29 AM [facility] BUN/Creatinine Ratio 10 7 - 23 11/22/2023 10:29 AM [facility] Osmolality Calculated 289 275 - 295 mOsm/kg 11/22/2023 10:29 AM [facility] Albumin/Globulin Ratio 1.4 1.1 - 2.3 11/22/2023 10:29 AM [facility] eGFR by CKD-EPI >90 >=90 mL/min/1.7 3 m2 11/22/2023 10:29 AM [facility] Blood BLOOD SPECIMEN / Unknown Lab Venipuncture / Unknown 11/22/2023 9:49 AM CDT 11/22/2023 10:01 AM CDT Will Naqvi MD LAB - CHEMISTRY [facility] Organization Address City/State/ZIP Co de Phone Number [facility] [address] [place] [phone], [facility] [phone] * XR FOOT RIGHT 3VW OR MORE (10/17/2023 1:57 PM CDT) Only the most recent of2 resultswithin the time period is included. Anatomical Region Laterality Modality Ankle / Foot Radiographic Yoly ging 10/17/2023 2:07 PM CDT Impressions 10/17/2023 9:28 PM CDT IMPRESSION: No significant arthritis in bilateral hands, wrists, feet and sacroiliac joints. Report dictated by Efrain Barnes MD (market president). I, Ko Romano MD have personally reviewed and interpreted this examination/study. > Interpreting Provider: Ko Roamno MD on 10/17/2023 9:28 PM Narrative 10/17/2023 9:28 PM CDT PROCEDURE: XR FOOT RIGHT 3VW OR MORE, XR SI JOINTS 3VW OR MORE, XR WRIST RIGHT 2VW, XR WRIST LEFT 2VW, XR HAND RIGHT 3VW OR MORE, XR HAND LEFT 3VW OR MORE, XR FOOT LEFT 3VW OR MORE, DATE/TIME OF EXAM: 10/17/2023 1:57 PM, LOCATION [facility] INDICATION: L40.50: Psoriatic arthritis ([facility] [...] is normal. The soft tissues are normal. Procedure Note Ko Romano MD - 10/17/2023 PROCEDURE: XR FOOT RIGHT 3VW OR MORE, XR SI JOINTS 3VW OR MORE, XRWRIST RIGHT 2VW, XR WRIST LEFT 2VW, XR HAND RIGHT 3VW OR MORE, XR HAND [id number] OR MORE, XR FOOT LEFT 3VW OR MORE, DATE/TIME OF EXAM: 10/17/2023 1:57PM, LOCATION [facility] INDICATION: L40.50: Psoriatic arthritis (HCC) D84.821: [...] joints. Report dictated by Efrain Barnes MD (market president). Ko Pascual MD have personally reviewed and [...] joints. Report dictated by Efrain Barnes MD (market president). Ko Pascual MD have personally reviewed and interpreted this examination/study. > Interpreting Provider: Ko Romano MD on 10/17/2023 9:28 PM Narrative 10/17/2023 9:28 PM CDT PROCEDURE: XR FOOT RIGHT 3VW OR MORE, XR SI JOINTS 3VW OR MORE, XR WRIST RIGHT 2VW, XR WRIST LEFT 2VW, XR HAND RIGHT 3VW OR MORE, XR HAND LEFT 3VW OR MORE, XR FOOT LEFT 3VW OR MORE, DATE/TIME OF EXAM: 10/17/2023 1:57 PM, LOCATION [facility] INDICATION: L40.50: Psoriatic arthritis ([facility] [...] is normal. The soft tissues are normal. Procedure Note Ko Romano MD - 10/17/2023 PROCEDURE: XR FOOT RIGHT 3VW OR MORE, XR SI JOINTS 3VW OR MORE, XRWRIST RIGHT 2VW, XR WRIST LEFT 2VW, XR HAND RIGHT 3VW OR MORE, XR HAND [id number] OR MORE, XR FOOT LEFT 3VW OR MORE, DATE/TIME OF EXAM: 10/17/2023 1:57PM, LOCATION [facility] INDICATION: L40.50: Psoriatic arthritis (HCC) D84.821: [...] joints. Report dictated by Efrain Barnes MD (market president). Ko Pascual MD have personally reviewed and [...] joints. Report dictated by Efrain Barnes MD (market president). Ko Pascual MD have personally reviewed and interpreted this examination/study. > Interpreting Provider: Ko Romano MD on 10/17/2023 9:28 PM Narrative 10/17/2023 9:28 PM CDT PROCEDURE: XR FOOT RIGHT 3VW OR MORE, XR SI JOINTS 3VW OR MORE, XR WRIST RIGHT 2VW, XR WRIST LEFT 2VW, XR HAND RIGHT 3VW OR MORE, XR HAND LEFT 3VW OR MORE, XR FOOT LEFT 3VW OR MORE, DATE/TIME OF EXAM: 10/17/2023 1:57 PM, LOCATION [facility] INDICATION: L40.50: Psoriatic arthritis (HCC) D84.821: [...] is normal. The soft tissues are normal. Procedure Note oK Romano MD - 10/17/2023 PROCEDURE: XR FOOT RIGHT 3VW OR MORE, XR SI JOINTS 3VW OR MORE, XRWRIST RIGHT 2VW, XR WRIST LEFT 2VW, XR HAND RIGHT 3VW OR MORE, XR HAND [id number] OR MORE, XR FOOT LEFT 3VW OR MORE, DATE/TIME OF EXAM: 10/17/2023 1:57PM, LOCATION [facility] INDICATION: L40.50: Psoriatic arthritis (HCC) D84.821: [...] feet and sacroiliac joints. Report dictated by Erfain Barnes MD (market president). I, Ko Romano MD have personally reviewed [...] joints. Report dictated by Efrain Barnes MD (market president). I, Ko Romano MD have personally reviewed and interpreted this examination/study. > Interpreting Provider: Ko Romano MD on 10/17/2023 9:28 PM Narrative 10/17/2023 9:28 PM CDT PROCEDURE: XR FOOT RIGHT 3VW OR MORE, XR SI JOINTS 3VW OR MORE, XR WRIST RIGHT 2VW, XR WRIST LEFT 2VW, XR HAND RIGHT 3VW OR MORE, XR HAND LEFT 3VW OR MORE, XR FOOT LEFT 3VW OR MORE, DATE/TIME OF EXAM: 10/17/2023 1:57 PM, LOCATION [facility] INDICATION: L40.50: Psoriatic arthritis (HCC) D84.821: [...] is normal. The soft tissues are normal. Procedure Note Ko Romano MD - 10/17/2023 PROCEDURE: XR FOOT RIGHT 3VW OR MORE, XR SI JOINTS 3VW OR MORE, XRWRIST RIGHT 2VW, XR WRIST LEFT 2VW, XR HAND RIGHT 3VW OR MORE, XR HAND [id number] OR MORE, XR FOOT LEFT 3VW OR MORE, DATE/TIME OF EXAM: 10/17/2023 1:57PM, LOCATION [facility] INDICATION: L40.50: Psoriatic arthritis (HCC) D84.821: [...] joints. Report dictated by Efrain Barnes MD (market president). Ko Pascual MD have personally reviewed and [...] joints. Report dictated by Efrain Barnes MD (market president). Ko Pascual MD have personally reviewed and interpreted this examination/study. > Interpreting Provider: Ko Romano MD on 10/17/2023 9:28 PM Narrative 10/17/2023 9:28 PM CDT PROCEDURE: XR FOOT RIGHT 3VW OR MORE, XR SI JOINTS 3VW OR MORE, XR WRIST RIGHT 2VW, XR WRIST LEFT 2VW, XR HAND RIGHT 3VW OR MORE, XR HAND LEFT 3VW OR MORE, XR FOOT LEFT 3VW OR MORE, DATE/TIME OF EXAM: 10/17/2023 1:57 PM, LOCATION [facility] INDICATION: L40.50: Psoriatic arthritis (HCC) D84.821: [...] is normal. The soft tissues are normal. Procedure Note Ko Romano MD - 10/17/2023 PROCEDURE: XR FOOT RIGHT 3VW OR MORE, XR SI JOINTS 3VW OR MORE, XRWRIST RIGHT 2VW, XR WRIST LEFT 2VW, XR HAND RIGHT 3VW OR MORE, XR HAND [id number] OR MORE, XR FOOT LEFT 3VW OR MORE, DATE/TIME OF EXAM: 10/17/2023 1:57PM, LOCATION [facility] INDICATION: L40.50: Psoriatic arthritis ([facility] [...] joints. Report dictated by Efrain Barnes MD (market president). Ko Pascual MD have personally reviewed and [...] joints. Report dictated by Efrain Barnes MD (market president). Ko Pascual MD have personally reviewed and interpreted this examination/study. > Interpreting Provider: Ko Romano MD on 10/17/2023 9:28 PM Narrative 10/17/2023 9:28 PM CDT PROCEDURE: XR FOOT RIGHT 3VW OR MORE, XR SI JOINTS 3VW OR MORE, XR WRIST RIGHT 2VW, XR WRIST LEFT 2VW, XR HAND RIGHT 3VW OR MORE, XR HAND LEFT 3VW OR MORE, XR FOOT LEFT 3VW OR MORE, DATE/TIME OF EXAM: 10/17/2023 1:57 PM, LOCATION [facility] INDICATION: L40.50: Psoriatic arthritis (HCC) D84.821: [...] is normal. The soft tissues are normal. Procedure Note Ko Romano MD - 10/17/2023 PROCEDURE: XR FOOT RIGHT 3VW OR MORE, XR SI JOINTS 3VW OR MORE, XRWRIST RIGHT 2VW, XR WRIST LEFT 2VW, XR HAND RIGHT 3VW OR MORE, XR HAND [id number] OR MORE, XR FOOT LEFT 3VW OR MORE, DATE/TIME OF EXAM: 10/17/2023 1:57PM, LOCATION [facility] INDICATION: L40.50: Psoriatic arthritis (HCC) D84.821: [...] joints. Report dictated by Efrain Barnes MD (market president). Ko Pascual MD have personally reviewed and interpreted this examination/study. > Interpreting Provider: Ko Romano MD on 10/17/2023 9:28 PM Will Naqvi MD DIAGNOSTIC IMAGING O RDERABLES * XR SI JOINTS 3VW OR MORE (10/17/2023 1:57 PM CDT) Only the most recent of2 resultswithin the time period is included. Anatomical Region Laterality Modality Pelvis, Lower Extremity [facility] 10/17/2023 2:07 PM CDT Impressions 10/17/2023 9:28 PM CDT IMPRESSION: No significant arthritis in bilateral hands, wrists, feet and sacroiliac joints. Report dictated by Efrain Barnes MD (market president). Ko Pascual MD have personally reviewed and interpreted this examination/study. > Interpreting Provider: Ko Romano MD on 10/17/2023 9:28 PM Narrative 10/17/2023 9:28 PM CDT PROCEDURE: XR FOOT RIGHT 3VW OR MORE, XR SI JOINTS 3VW OR MORE, XR WRIST RIGHT 2VW, XR WRIST LEFT 2VW, XR HAND RIGHT 3VW OR MORE, XR HAND LEFT 3VW OR MORE, XR FOOT LEFT 3VW OR MORE, DATE/TIME OF EXAM: 10/17/2023 1:57 PM, LOCATION [facility] INDICATION: L40.50: Psoriatic arthritis (HCC) D84.821: [...] is normal. The soft tissues are normal. Procedure Note Ko Romano MD - 10/17/2023 PROCEDURE: XR FOOT RIGHT 3VW OR MORE, XR SI JOINTS 3VW OR MORE, XRWRIST RIGHT 2VW, XR WRIST LEFT 2VW, XR HAND RIGHT 3VW OR MORE, XR HAND [id number] OR MORE, XR FOOT LEFT 3VW OR MORE, DATE/TIME OF EXAM: 10/17/2023 1:57PM, LOCATION [facility] INDICATION: L40.50: Psoriatic arthritis (HCC) D84.821: [...] joints. Report dictated by Efrain Barnes MD (market president). I, Ko Romano MD have personally reviewed and interpreted this examination/study. > Interpreting Provider: Ko Romano MD on 10/17/2023 9:28 PM Will Naqvi MD DIAGNOSTIC IMAGING O RDERABLES * HIV-1 HIV-2 ANTIBODY + HIV P24 AG PANEL (07/24/2023 2:25 PM CUSTOMER SERVICE TRAINER) HIV Antigen/Antibod y 1 & 2 Non-reacti ve Non-react brian 07/24/2023 3:43 PM CUSTOMER SERVICE TRAINER [facility] Comment:No Laboratory eviden ce of HIV infection. Blood BLOOD SPECIMEN / Unknown Lab Venipuncture / Unknown 07/24/2023 2:25 PM CUSTOMER SERVICE TRAINER 07/24/2023 2:56 PM CUSTOMER SERVICE TRAINER Richard Chacon III, MD LAB - CHEMISTRY O RDERARADAMES Performing Organization Address City/[facility]/ZIP Co de Phone Number [facility] [address] [place] [address], [facility] [phone] * (ABNORMAL) HEMOGLOBIN A1C (07/24/2023 2:25 PM CUSTOMER SERVICE TRAINER) Only the most recent of2 resultswithin the time period is included. Hemoglobin A1c 5.7(H) <=5.6 % 07/25/2023 11:16 AM CUSTOMER SERVICE TRAINER [facility] Estimated Average Glucose 117 mg/dL 07/25/2023 11:16 AM [facility] Comment: HbA1c Interpretation: Normal : < 5.7% Pre-diabetes: 5.7-6.4% Diabetes: Equal to or greater than 6.5% Test results diagnostic of diabetes should be repeated for confirmation. Treatment target values recommended by ADA and other clinical organizations should be used to evaluate metabolic control in patients. Reference: [place] [employer], Standards of Care in Diabetes -2020 In patients 70 years and older consider HbA1c target range of 7.0-7.5% (Reference: Alberto Everett et al. JAMDA. 2012) The Sebia assay for the measurement of HbA1c is a National Glycohemoglobin Standardization Program (NGSP) certified method. Blood BLOOD SPECIMEN / Unknown Lab Venipuncture / Unknown 07/24/2023 2:25 PM CUSTOMER SERVICE TRAINER 07/24/2023 2:58 PM CUSTOMER SERVICE TRAINER Richard Chacon III, MD LAB - CHEMISTRY O RDERABLES [facility] [address] [place] [address], [facility] [phone] * (ABNORMAL) LIPID PROFILE (07/24/2023 2:25 PM CUSTOMER SERVICE TRAINER) Only the most recent of2 resultswithin the time period is included. Cholesterol Total 151 <200 mg/dL 07/24/2023 3:25 PM [facility] HDL 27(L) >40 mg/dL 07/24/2023 3:25 PM [facility] Comment: ATP III Classification of HDL Cholesterol: <40 mg/dL: Considered a major risk factor. >60 mg/dL: Considered a negative risk factor. LDL Calculated 99 <100 mg/dL 07/24/2023 3:25 PM [facility] Comment: ATP III Classification of LDL Cholesterol: <100 mg/dL: Optimal 100 - 129 mg/dL: Near Optimal/Above Optimal 130 - 159 mg/dL: Borderline High 160 - 189 mg/dL: High >190 mg/dL: Very High Triglycerides 124 <150 mg/dL 07/24/2023 3:25 PM [facility] Comment: ATP III Classification of Triglycerides: <150 mg/dL: Normal 150 - 199 mg/dL: Borderline High 200 - 400 mg/dL: High >500 mg/dL: Very High Blood BLOOD SPECIMEN / Unknown Lab Venipuncture / Unknown 07/24/2023 2:25 PM CUSTOMER SERVICE TRAINER 07/24/2023 2:57 PM CUSTOMER SERVICE TRAINER Richard Chacon III, MD LAB - CHEMISTRY O RDERABLES Performing Organization Address [facility]/State/ZIP Co de Phone Number [facility] [address] [place] [phone], [facility] [phone] * [place] EAR MICROSCOPY EXAMINATION (03/21/2023 4:40 PM CDT) Narrative Froilan Monae MD - 03/21/2023 4:40 PM CDT Froilan Monae MD 03/21/2023 4:40 PM Procedure: Microscopic exam of the ear(s) Findings: See main note. Procedure in detail: The binocular operating microscope and and ear speculum were used to exam the ear(s). The patient tolerated the procedure well and there was no bleeding. Froilan Monae MD Froilan Monae MD PROCEDURE/MINOR JAJA GICAL ORDERABLES * AUDIOLOGY/TYMPANOMETRY ORDER (03/21/2023 2:22 PM CDT) Ismael Rose, PhD - 03/21/2023 2:41 PM CDT HISTORY: Manoj Horner is a 27 year old male was seen for an assessment of their hearing. The patient reports difficulty hearing. There is not a report of dizziness. There is not a report of tinnitus. There is not a report of otalgia. There is not a report of noise exposure. There is a history of hearing loss in the family. There is not a history of previous ear surgery. 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 [employer] Thresholds is in good agreement with pure [...] or PCP PRN. Ismael Castro, Ph.D., [place]., [facility] Emt/Paramedic Director, Division of Audiology Department of Otolaryngology- Head & Neck Surgery [facility] Ismael Castro PhD AUDIOLOGY SERVICES O RDERABLES * MO EAR MICROSCOPY EXAMINATION (03/19/2022 3:34 PM CDT) Froilan Ferrer MD - 03/19/2022 3:34 PM CDT Froilan Monae MD 03/19/2022 3:35 PM Procedure: Microscopic exam of the ear(s) Findings: [...] seen for an assessment of their hearing. The patient reports difficulty hearing. There is not a report of dizziness. There is not a report of tinnitus. There is not a report of otalgia. There [...] conductive hearing loss in the left ear. Speech Driver Education Instructor Thresholds is in good agreement with pure [...] Retest post treatment. Ismael Castro, Ph.D., SKYLER., [facility]-A Emt/Paramedic Director, Division of Audiology Department of Otolaryngology- Head & Neck Surgery [facility] Ismael Castro PhD AUDIOLOGY SERVICES O RDERABLES * CYCLIC CITRUL PEPTIDE ANTIBODY IGG/IGA (CCP) (08/02/2021 10:18 AM CUSTOMER SERVICE TRAINER) CCP Antibodies IgG/IgA 2 0 - 19 units 08/03/2021 11:07 PM CUSTOMER SERVICE TRAINER [facility] ([facility]) Comment: Negative <20 Weak positive 20 - 39 Moderate positive 40 - 59 Strong positive >59 Blood BLOOD SPECIMEN / Unknown Lab Venipuncture / Unknown 08/02/2021 10:18 AM CUSTOMER SERVICE TRAINER 08/02/2021 11:25 AM CUSTOMER SERVICE TRAINER Narrative [facility] ([facility]) - 08/03/2021 11:07 PM CUSTOMER SERVICE TRAINER Performed at: [facility] [id number] Bulb Assembler: Gaviota Krishnamurthy MD, Phone: [phone] Estee Peck MD LAB - SEROLOGY ORDER SUDEEP [facility] ([facility]) [address] [place] [address] * RHEUMATOID FACTOR BLOOD QUANTITATIVE (08/02/2021 10:18 AM CUSTOMER SERVICE TRAINER) [facility] Rheumatoid Factor <15 <30 IU/mL 08/02/2021 11:57 AM CUSTOMER SERVICE TRAINER [facility] Rheumatoid Factor Screen Negative Negative 08/02/2021 11:57 AM CUSTOMER SERVICE TRAINER [facility] Blood BLOOD SPECIMEN / Unknown Lab Venipuncture / Unknown 08/02/2021 10:18 AM CUSTOMER SERVICE TRAINER 08/02/2021 11:25 AM CUSTOMER SERVICE TRAINER Estee Peck MD LAB - CHEMISTRY ORDE RABLES Performing Organization Address City/[facility]/ZIP Co de Phone Number [facility] [address] [address], [facility] [phone] * GONZALES BLOOD SCREEN W/REFLEX TITER (08/02/2021 10:18 AM CUSTOMER SERVICE TRAINER) [facility] GONZALES IgG None Detected None Detected 08/04/2021 8:04 AM CUSTOMER SERVICE TRAINER [facility] ([facility]) Comment: If suspicion of connective tissue disease is strong and GONZALES EIA is negative, consider testing for GONZALES by IFA ([id number]). INTERPRETIVE INFORMATION: Anti-Nuclear Antibodies (GONZALES), IgG by DEDE Antinuclear Antibodies (GONZALES), IgG by DEDE: GONZALES specimens are screened using enzyme-linked immunosorbent assay (DEDE) methodology. All DEDE results reported as Detected are further tested by indirect fluorescent assay (IFA) using HEp-2 substrate with an IgG-specific conjugate. The GONZALES DEDE screen is designed to detect antibodies against dsDNA, histones, SS-A (Ro), SS-B (La), Jon, Jon/TRAVEL REGISTERED NURSE ICU, Scl-70, Azeb-1, centromeric proteins, other antigens extracted from the HEp-2 cell nucleus. GONZALES DEDE assays have been reported to have lower sensitivities than GONZALES IFA for systemic autoimmune rheumatic diseases (SARD). Negative results do not necessarily rule out SARD. Performed By: [facility] [address] [place] [address] Stone Rigger: Kiarra Fowler MD Blood BLOOD SPECIMEN / Unknown Lab Venipuncture / Unknown 08/02/2021 10:18 AM CUSTOMER SERVICE TRAINER 08/02/2021 11:25 AM CUSTOMER SERVICE TRAINER Estee Peck MD LAB - CHEMISTRY ALEENA HERNANDEZ Performing Organization Address [facility] Co de Phone Number [facility]) [address] [place] [address] * HLA TYPING B27 (08/02/2021 10:18 AM CUSTOMER SERVICE TRAINER) HLA-B27 Negative Negative 08/04/2021 5:25 PM CUSTOMER SERVICE TRAINER [facility] ([facility]) Comment: INTERPRETIVE INFORMATION: HLA-B27 HLA-B27 is a serologically defined allele of the human HLA-B locus. The presence of the HLA-B27 antigen is strongly associated with ankylosing spondylitis and related disorders. This test was developed and its performance characteristics determined by [facility]. It has not been cleared or approved by the [place] Food and Drug Administration. This test was performed in a CLIA certified laboratory and is intended for clinical purposes. Performed by [facility], [address] [place] [address] [email or web address], Kiarra Fowler MD, Lab. Director Blood BLOOD SPECIMEN / Unknown Lab Venipuncture / Unknown 08/02/2021 10:18 AM CUSTOMER SERVICE TRAINER 08/02/2021 11:25 AM CUSTOMER SERVICE TRAINER Estee Peck MD LAB - CHEMISTRY ALEENA HERNANDEZ Performing Organization Address [facility] Co de Phone Number [facility]) [address] [place] [address] * XR KNEE RIGHT 3VW (08/02/2021 10:00 AM CUSTOMER SERVICE TRAINER) Anatomical Region Laterality Modality Lower Extremity Radiographic Yoly ging 08/02/2021 10:1 2 AM CUSTOMER SERVICE TRAINER Impressions 08/02/2021 10:42 AM CUSTOMER SERVICE TRAINER IMPRESSION: No evidence of bony erosions or significant degenerative changes. Dictated by Paulo Barragan D.O. (Chaplain Resident) Dr. EDISON Pascual MD have personally reviewed and interpreted this examination/study. This report was electronically signed by EDISON FELIX MD on 08/02/2021 10:42 AM . Narrative 08/02/2021 10:42 AM CUSTOMER SERVICE TRAINER EXAMINATION: XR KNEE RIGHT 3VW, XR FOOT [...] degenerative changes. Dictated by Paulo Barragan D.O. (Chaplain Resident) Dr. EDISON Pascual MD have personally reviewed and interpreted this examination/study. This report was electronically signed by EDISON FELIX MD on08/02/2021 10:42 AM . Estee Peck MD DIAGNOSTIC IMAGING O RDERABLES * XR KNEE LEFT 3VW (08/02/2021 10:00 AM CUSTOMER SERVICE TRAINER) Anatomical Region Laterality Modality Lower Extremity Radiographic Yoly ging 08/02/2021 10:0 8 AM CUSTOMER SERVICE TRAINER Impressions 08/02/2021 10:43 AM CUSTOMER SERVICE TRAINER IMPRESSION: No evidence of bony erosions or significant degenerative changes. Dictated by Paulo Barragan D.O. (Chaplain Resident) Dr. EDISON Pascual MD have personally reviewed and interpreted this examination/study. This report was electronically signed by EDISON FELIX MD on 08/02/2021 10:43 AM . Narrative 08/02/2021 10:43 AM CUSTOMER SERVICE TRAINER EXAMINATION: XR KNEE LEFT 3VW, XR FOOT [...] degenerative changes. Dictated by Paulo Barragan D.O. (Chaplain Resident) Dr. EDISON Pascual MD have personally reviewed and interpreted this examination/study. This report was electronically signed by EDISON FELIX MD on08/02/2021 10:43 AM . Estee Peck MD DIAGNOSTIC IMAGING O RDERABLES * XR WRIST RIGHT 3VW OR MORE (08/02/2021 10:00 AM CUSTOMER SERVICE TRAINER) Anatomical Region Laterality Modality Wrist / Hand Radiographic Yoly ging 08/02/2021 10:0 2 AM CUSTOMER SERVICE TRAINER Impressions 08/02/2021 10:40 AM CUSTOMER SERVICE TRAINER IMPRESSION: No evidence of bony erosions or degenerative changes. Dictated by Paulo Barragan D.O. (Chaplain Resident) IDr. EDISON MD have personally reviewed and interpreted this examination/study. This report was electronically signed by EDISON FELIX MD on 08/02/2021 10:40 AM . Narrative 08/02/2021 10:40 AM CUSTOMER SERVICE TRAINER EXAMINATION: XR SHOULDER RIGHT 2VW OR MORE, [...] degenerative changes. Dictated by Paulo Barragan D.O. (Chaplain Resident) Dr. EDISON Pascual MD have personally reviewed and interpreted this examination/study. This report was electronically signed by EDISON FELIX MD on08/02/2021 10:40 AM . Estee Peck MD DIAGNOSTIC IMAGING O RDERABLES * XR WRIST LEFT 3VW OR MORE (08/02/2021 10:00 AM CUSTOMER SERVICE TRAINER) Anatomical Region Laterality Modality Wrist / Hand Radiographic Yoly ging 08/02/2021 10:0 5 AM CUSTOMER SERVICE TRAINER Impressions 08/02/2021 10:41 AM CUSTOMER SERVICE TRAINER IMPRESSION: No evidence of bony erosions or degenerative changes. Dictated by Paulo Barragan D.O. (Chaplain Resident) Dr. EDISON Pascual MD have personally reviewed and interpreted this examination/study. This report was electronically signed by EDISON FELIX MD on 08/02/2021 10:41 AM . Narrative 08/02/2021 10:41 AM CUSTOMER SERVICE TRAINER EXAMINATION: XR SHOULDER LEFT 2VW OR MORE, [...] degenerative changes. Dictated by Paulo Barragan D.O. (Chaplain Resident) Dr. EDISON Pascual MD have personally reviewed and interpreted this examination/study. This report was electronically signed by EDISON FELIX MD on08/02/2021 10:41 AM . Estee Peck MD DIAGNOSTIC IMAGING O RDERABLES * XR SHOULDER RIGHT 2VW OR MORE (08/02/2021 10:00 AM CUSTOMER SERVICE TRAINER) Anatomical Region Laterality Modality Upper Extremity Radiographic Yoly ging 08/02/2021 10:0 2 AM CUSTOMER SERVICE TRAINER Impressions 08/02/2021 10:40 AM CUSTOMER SERVICE TRAINER IMPRESSION: No evidence of bony erosions or degenerative changes. Dictated by Paulo Barragan D.O. (Chaplain Resident) Dr. EDISON Pascual MD have personally reviewed and interpreted this examination/study. This report was electronically signed by EDISON FELIX MD on 08/02/2021 10:40 AM . Narrative 08/02/2021 10:40 AM CUSTOMER SERVICE TRAINER EXAMINATION: XR SHOULDER RIGHT 2VW OR MORE, [...] degenerative changes. Dictated by Paulo Barragan D.O. (Chaplain Resident) Dr. EDISON Pascual MD have personally reviewed and interpreted this examination/study. This report was electronically signed by EDISON FELIX MD on08/02/2021 10:40 AM . Estee Peck MD DIAGNOSTIC IMAGING O RDERABLES * XR SHOULDER LEFT 2VW OR MORE (08/02/2021 10:00 AM CUSTOMER SERVICE TRAINER) Anatomical Region Laterality Modality Upper Extremity Radiographic Yoly ging 08/02/2021 10:0 5 AM CUSTOMER SERVICE TRAINER Impressions 08/02/2021 10:41 AM CUSTOMER SERVICE TRAINER IMPRESSION: No evidence of bony erosions or degenerative changes. Dictated by Paulo Barragan D.O. (Chaplain Resident) Dr. EDISON Pascual MD have personally reviewed and interpreted this examination/study. This report was electronically signed by EDISON FELIX MD on 08/02/2021 10:41 AM . Narrative 08/02/2021 10:41 AM CUSTOMER SERVICE TRAINER EXAMINATION: XR SHOULDER LEFT 2VW OR MORE, [...] degenerative changes. Dictated by Paulo Barragan D.O. (Chaplain Resident) IDr. EDISON MD have personally reviewed and interpreted this examination/study. This report was electronically signed by EDISON FELIX MD on08/02/2021 10:41 AM . Estee Peck MD DIAGNOSTIC IMAGING O RDERABLES * XR CHEST 2VW (08/02/2021 10:00 AM CUSTOMER SERVICE TRAINER) Anatomical Region Laterality Modality Chest Radiographic Yoly ging 08/02/2021 10:0 3 AM CUSTOMER SERVICE TRAINER Impressions 08/02/2021 5:18 PM CUSTOMER SERVICE TRAINER FINDINGS/IMPRESSION: There is asymmetric elevation of the right hemidiaphragm. There is no focal consolidation, pleural effusion, or pneumothorax. The cardiomediastinal silhouette is normal. The visible bony thorax is intact. Report drafted by Efrain Barnes M.D. (resident) Dr. MYRA Pascual have personally reviewed and interpreted this examination/study. This report was electronically signed by MYRA MURILLO on 08/02/2021 5:18 PM . Narrative 08/02/2021 5:18 PM CUSTOMER SERVICE TRAINER EXAMINATION: XR CHEST 2VW HISTORY: L40.9: Psoriasis [...] HCV RNA QN PCR (07/05/2021 11:11 AM CUSTOMER SERVICE TRAINER) Hepatitis C Antibody NON-REACTI VE NON-REACT [facility] Signal to Cut-Off 0.01 <1.00 [facility] Comment: HCV antibody was non-reactive. There is no laboratory evidence of HCV infection. In most cases, no further action is required. However, if recent HCV exposure is suspected, a test for HCV RNA (test code 34585) is suggested. For additional information please refer to http://education.Restaurant.com/faq/IPB78s3 (This link is being provided for informational/ educational purposes only.) REPORT COMMENT: FASTING:NO Test Performed at: [facility] [address] [place] [address] SIRIA AGUILAR DO,MPH Blood BLOOD SPECIMEN / Unknown 07/05/2021 11:11 AM CUSTOMER SERVICE TRAINER 07/05/2021 11:12 AM CUSTOMER SERVICE TRAINER Estee Peck MD LAB - CHEMISTRY ALEENA HERNANDEZ Performing Organization Address [facility] Co de Phone Number [facility] [phone] [place] [address] * HEPATITIS B SURFACE ANTIBODY (07/05/2021 11:11 AM CUSTOMER SERVICE TRAINER) Hepatitis B Virus Surface Antibody NON-REACTI VE NON-REACT [facility] Comment: Test Performed at: [facility] [id number] [phone] SIRIA AGUILAR DO,MPH Blood BLOOD SPECIMEN / Unknown 07/05/2021 11:11 AM CUSTOMER SERVICE TRAINER 07/05/2021 11:12 AM CUSTOMER SERVICE TRAINER Estee Peck MD LAB - CHEMISTRY ALEENA HERNANDEZ Performing Organization Address [facility] Co de Phone Number [facility] [phone] [place] [address] * HEPATITIS B CORE ANTIBODY (07/05/2021 11:11 AM CUSTOMER SERVICE TRAINER) Hepatitis B Core Virus Antibody Total NON-REACTI VE NON-REACT [facility] Comment: Test Performed at: [facility] [id number] [employer] [address] SIRIA AGUILAR DO,MPH Blood BLOOD SPECIMEN / Unknown 07/05/2021 11:11 AM CUSTOMER SERVICE TRAINER 07/05/2021 11:12 AM CUSTOMER SERVICE TRAINER Estee Peck MD LAB - CHEMISTRY ALEENA HERNANDEZ Performing Organization Address [facility] Co de Phone Number [facility] [phone] [place] [address] * HEPATITIS B SURFACE ANTIGEN W RFLX CONFIRMATION (07/05/2021 11:11 AM CUSTOMER SERVICE TRAINER) Hepatitis B Virus Surface Antigen NON-REACTI VE NON-REACT [facility] Comment: Test Performed at: [facility] [id number] [employer] [address] SIRIA AGUILAR DO,MPH Blood BLOOD SPECIMEN / Unknown 07/05/2021 11:11 AM CUSTOMER SERVICE TRAINER 07/05/2021 11:12 AM CUSTOMER SERVICE TRAINER Estee Peck MD LAB - CHEMISTRY ALEENA HERNANDEZ [facility] [address] [place] [address] * VITAMIN D 25-HYDROXY (04/03/2021 12:40 PM CDT) Vitamin D, 25 Hydroxy 52.0 30.0 - 80.0 ng/mL 04/03/2021 2:31 PM CDT [facility] Comment: The recommendations for 25-Hydroxy Vitamin D clinical decision points are as follows: Deficient: <20.0 ng/mL Insufficient: 20.0 - 29.9 ng/mL Sufficient: > or =30.0 ng/mL If the 25-Hydroxy Vitamin D results are inconsitent with clinical evidence, it is recommended that follow-up testing using a method such as LC/MS/MS be performed to confirm the result. Reference: The Endocrine Society Clinical Practice Guidelines. 2011 Blood BLOOD SPECIMEN / Unknown Lab Venipuncture / Unknown 04/03/2021 12:40 PM CDT 04/03/2021 1:41 PM CDT Richard Chacon III, MD LAB - CHEMISTRY Deni DIAZ Performing Organization Address [facility] Co de Phone Number [facility] [address] [place] [address], [facility] [phone] * ED INCISION AND DRAINAGE (06/18/2011 12:25 PM CUSTOMER SERVICE TRAINER) Narrative Sandra Benson DO - 06/18/2011 12:25 PM CUSTOMER SERVICE TRAINER Sandra Benson DO 06/18/2011 12:25 PM Provider contact with the patient: 06/18/2011 11:59 AM Danis Horner [id number] [facility] EMERGENCY DEPT History Chief Complaint Patient presents with Abscess bit rt thumb nail 3 days [...] includes abscess. Past Medical History Diagnosis Date Bipolar 1 disorder No past surgical history on file. History Social History Marital Status: Single Spouse Name: N/A Number of Children: N/A Years of Education: N/A Occupational History Not on file. Social History Main Topics Smoking status: Not on file Smokeless tobacco: Not on file Alcohol Use: Drug Use: Sexually Active: Not on file Other Topics Concern Not on file Social History Narrative No narrative on file Medications Current Outpatient Prescriptions Medication Sig Dispense Refill olanzapine (ZYPREXA) 10 MG tablet Take 10 mg by mouth once daily. clindamycin (CLEOCIN) 300 MG capsule Take 1 Cap by mouth every 8 hours for 10 days. 30 Cap 0 Review of Systems Review of Systems Constitutional: Negative for fever, appetite change and fatigue. HENT: Negative. Eyes: Negative. Respiratory: Negative. Cardiovascular: Negative. Gastrointestinal: Negative. Genitourinary: Negative. Skin: Abscess Neurological: Negative. Hematological: Negative. Psychiatric/Behavioral: Negative. BP 151/67 Pulse 82 Temp 97.6 F Resp 18 Wt 76.5 kg (168 lb [...] Primary? Cellulitis and abscess of unspecified site Procedure Note Sandra Benson DO - 06/18/2011 11:59 AM CST Images from the original note were not included. Provider contact with the patient: 06/18/2011 11:59 AM Danis Horner [id number] [facility] EMERGENCY DEPT History Chief Complaint Patient presents with Abscess bit rt thumb nail 3 days [...] includes abscess. Past Medical History Diagnosis Date Bipolar 1 disorder No past surgical history on file. History Social History Marital Status: Single Spouse Name: N/A Number of Children: N/A Years of Education: N/A Occupational History Not on file. Social History Main Topics Smoking status: Not on file Smokeless tobacco: Not on file Alcohol Use: Drug Use: Sexually Active: Not on file Other Topics Concern Not on file Social History Narrative No narrative on file Medications Current Outpatient Prescriptions Medication Sig Dispense Refill olanzapine (ZYPREXA) 10 MG tablet Take 10 mg by mouth once daily. clindamycin (CLEOCIN) 300 MG capsule Take 1 Cap by mouth every 8 hoursfor 10 days. 30 Cap 0 Review of Systems Review of Systems Constitutional: Negative for fever, appetite change and fatigue. HENT: Negative. Eyes: Negative. Respiratory: Negative. Cardiovascular: Negative. Gastrointestinal: Negative. Genitourinary: Negative. Skin: Abscess Neurological: Negative. Hematological: Negative. Psychiatric/Behavioral: Negative. BP 151/67 Pulse 82 Temp 97.6 F Resp 18 Wt 76.5 kg (168 lb [...] Primary? Cellulitis and abscess of unspecified site Sandra Benson DO PROCEDURE/MINOR SURG ICAL ORDERABLES * CULTURE ABSCESS (06/18/2011 12:00 PM CUSTOMER SERVICE TRAINER) Result [facility] Comment: Final GRAM STAIN Rare WBC's Rare GRAM POSITIVE COCCI CULTURE STAPHYLOCOCCUS AUREUS Light growth Ciprofloxacin TYSON Susceptible <=0.5 ug/ml Clindamycin TYSON Susceptible <=0.25 ug/ml Erythromycin TYSON Susceptible <=0.25 ug/ml Gentamicin TYSON Susceptible <=0.5 ug/ml Levofloxacin TYSON Susceptible 0.25 ug/ml Oxacillin TYSON Susceptible 0.5 ug/ml Tetracycline TYSON Susceptible <=1 ug/ml Trimeth/Sulfa TYSON Susceptible <=10 ug/ml Vancomycin TYSON Susceptible <=0.5 ug/ml STREPTOCOCCUS INTERMEDIUS Light growth ENTIRE THUMB / Unknown 06/18/2011 12:00 PM CUSTOMER SERVICE TRAINER 06/18/2011 1:32 PM CUSTOMER SERVICE TRAINER Narrative Resulting Agency Comment Performed By [facility];[address] [place] [address];[place] [address] Azam Strong MD LAB - MICROBIOLOGY O RDERABLES [facility] [address] [facility] [address] Care Teams Virology Teacher Relationship Specialty Start Date End Date Richard Chacon III, MD [address] [place] [phone] PCP - General Internal Medicine 01/29/22 Richard Chacon III, MD [address] [place] [phone] PCP - Attributed-[facility] NIYAH SALCIDO P4P 11/23/23 Christa Velez APRN-MANAGER [employer] [address] Juve Rust [address] [place] [phone] Psychiatrist Nurse Practitioner 08/07/21 Morgan Randhawa MD [address] [facility] [place] [phone] Resident - PCP Internal Medicine 01/29/22 Pineda Randhawa MD [address] [facility] [place] [phone] Resident Rheumatology 12/24/22 Will Naqvi MD [address] [facility] [address] [place] [phone] Online Advertising Analyst Rheumatology 12/24/22 Pineda Randhawa MD [address] [place] [address] Resident Rheumatology 02/04/23 Estee Peck MD [address] [facility] [address] [place] [address] Dermatology 02/04/23
== END 2024-07-29 14:34 | disposition home or self-care (01) ==
LOC: ANHCARD 14:34
PROVIDERS: Visit Provider Nurse Practitioner Family
DX: G47.31 Primary central sleep apnea (principal)
CPT/HCPCS: 93306

== ENCOUNTER 2024-08-06 09:13 | Outpatient (CLI) | payer MEDICAID, SELFPAY ==
--- OUTSIDE RECORDS SUMMARY | 2024-08-06 09:28 | XMS_ITS ---
Author Organization [facility] [employer] Address [address] [place] [address] Care Team Providers Care Tea Bag Machine Tender Name Role Phone Maldonado ARAUZ MD Primary Care Provider Christa Laura Unavailable [phone] Allergies No Known Allergies REASON FOR VISIT follow up rx Medications Medication SIG (Take, Route, Frequency, Duration) Notes Start Date End Date Status Clobetasol Propionate 0.05 % External 09/02/2023 Active Folic Acid 1 MG Oral 09/02/2023 Act artur Citalopram Hydrobromide 40 MG Oral 09/02/2023 Active Hydrocortisone 2.50% External 09/02/2023 Active COSENTYX PEN 300 MG/2 PENS (150 MG/ML) SUBCUTANEOUS *Reorder from [employer] for eRx and Interaction Alerts* 09/02/2023 Active [...] MCG X4)/0.5 ML IM SYRINGE *Reorder from [employer] for eRx and Interaction Alerts* 09/02/2023 Active [...] Problem Bipolar affective disorder, currently depressed, mild (885787353) Bipolar disorder, current episode depressed, mild (F31.31) 4 Active confirmed Problem Generalized anxiety disorder (95876500) Generalized anxiety disorder (F41.1) 4 Active confirmed Problem Insomnia disorder related to another mental disorder (61191530) Insomnia due to other mental disorder (F51.05) 4 Active confirmed Problem Pervasive developmental disorder (disorder) (07081744) Autistic disorder (F84.0) 4 Active confirmed Vital Signs Weight 169.2 lbs 12/02/2023 Weight-kg 76.75 kg 12/02/2023 Height 67.00 in 12/02/2023 Height-cm 170.18 cm 12/02/2023 BMI 26.5 kg/m2 12/02/2023 Encounters Encounter Location Date Provider Diagnosis [facility] [address] [address] 12/02/2023 Chrsita Rankin Bipolar disorder, current episode depressed, mild [...] DAY Qty: (90) tablet Refills: 0 Pharmacy: [facility] #[id number] olanzapine 10 mg tablet - TAKE 1 TABLET BY MOUTH EVERY DAY AT BEDTIME Qty: (90) tablet Refills: 0 Pharmacy: [facility] #[id number] venlafaxine ER 37.5 mg capsule,extended release 24 hr - Take 1 capsule(s) every day by oral route in the morning for 30 days, for Depression and anxiety. Qty: (30) capsule Refills: 0 Pharmacy: [facility] #[id number] 2. Generalized anxiety disorder - Celexa 40 mg dailyeducated on anxiety and prevention F41.1: Generalized anxiety disorder citalopram 40 mg tablet - TAKE 1 TABLET BY MOUTH EVERY DAY IN THE MORNING Qty: (90) tablet Refills: 0 [facility]acy: [facility] #[id number] 3. Insomnia disorder related to another mental disorder - hypersomnia Melatonin 3 mg at night OTC F51.05: Insomnia due to other mental disorder 4. Autistic disorder -oicswjO09.0: Autistic disorder 5. Long-term drug therapy 12/02/2023 [...] DAY Qty: (90) tablet Refills: 0 Pharmacy: [facility] #[id number] olanzapine 10 mg tablet - TAKE 1 TABLET BY MOUTH EVERY DAY AT BEDTIME Qty: (90) tablet Refills: 0 Pharmacy: [facility] #[id number] venlafaxine ER 37.5 mg capsule,extended release 24 hr - Take 1 capsule(s) every day by oral route in the morning for 30 days, for Depression and anxiety. Qty: (30) capsule Refills: 0 Pharmacy: [facility] #[id number] 2. Generalized anxiety disorder - Celexa 40 mg dailyeducated on anxiety and prevention F41.1: Generalized anxiety disorder citalopram 40 mg tablet - TAKE 1 TABLET BY MOUTH EVERY DAY IN THE MORNING Qty: (90) tablet Refills: 0 Pharmacy: [facility] #[id number] 3. Insomnia disorder related to another mental disorder - hypersomnia Melatonin 3 mg at night OTC F51.05: Insomnia due to other mental disorder 4. Autistic disorder -svkqcuP83.0: Autistic disorder 5. Long-term drug therapy 12/02/2023 [...] DAY Qty: (90) tablet Refills: 0 Pharmacy: [facility] #[id number] olanzapine 10 mg tablet - TAKE 1 TABLET BY MOUTH EVERY DAY AT BEDTIME Qty: (90) tablet Refills: 0 Pharmacy: [facility] #[id number] venlafaxine ER 37.5 mg capsule,extended release 24 hr - Take 1 capsule(s) every day by oral route in the morning for 30 days, for Depression and anxiety. Qty: (30) capsule Refills: 0 Pharmacy: [facility] #[id number] 2. Generalized anxiety disorder - Celexa 40 mg dailyeducated on anxiety and prevention F41.1: Generalized anxiety disorder citalopram 40 mg tablet - TAKE 1 TABLET BY MOUTH EVERY DAY IN THE MORNING Qty: (90) tablet Refills: 0 Pharmacy: [facility] #[id number] 3. Insomnia disorder related to another mental disorder - hypersomnia Melatonin 3 mg at night OTC F51.05: Insomnia due to other mental disorder 4. Autistic disorder -mnzgegF41.0: Autistic disorder 5. Long-term drug therapy 12/02/2023 [...] DAY Qty: (90) tablet Refills: 0 Pharmacy: [facility] #[id number] olanzapine 10 mg tablet - TAKE 1 TABLET BY MOUTH EVERY DAY AT BEDTIME Qty: (90) tablet Refills: 0 Pharmacy: [facility] #[id number] venlafaxine ER 37.5 mg capsule,extended release 24 hr - Take 1 capsule(s) every day by oral route in the morning for 30 days, for Depression and anxiety. Qty: (30) capsule Refills: 0 Pharmacy: [facility] #[id number] 2. Generalized anxiety disorder - Celexa 40 mg dailyeducated on anxiety and prevention F41.1: Generalized anxiety disorder citalopram 40 mg tablet - TAKE 1 TABLET BY MOUTH EVERY DAY IN THE MORNING Qty: (90) tablet Refills: 0 Pharmacy: [facility] #[id number] 3. Insomnia disorder related to another mental disorder - hypersomnia Melatonin 3 mg at night OTC F51.05: Insomnia due to other mental disorder 4. Autistic disorder -gzyeucT64.0: Autistic disorder 5. Long-term drug therapy 12/02/2023 [...] DAY Qty: (90) tablet Refills: 0 Pharmacy: [facility] #[id number] 10 mg tablet - TAKE 1 TABLET BY MOUTH EVERY DAY AT BEDTIME Qty: (90) tablet Refills: 0 Pharmacy: [facility] #[id number] ER 37.5 mg capsule,extended release 24 hr - Take 1 capsule(s) every day by oral route in the morning for 30 days, for Depression and anxiety. Qty: (30) capsule Refills: 0 Pharmacy: [facility] #[id number] 2. Generalized anxiety disorder -Celexa 40 mg dailyeducated on anxiety and sshhyhgvydF30.1: Generalized anxiety disorder citalopram 40 mg tablet - TAKE 1 TABLET BY MOUTH EVERY DAY IN THE MORNING Qty: (90) tablet Refills: 0 Pharmacy: [facility] #[id number] 3. Insomnia disorder related to another mental disorder -hypersomniaMelat onin 3 mg at night OTCF51.05: Insomnia due to other mental disorder 4. Autistic disorder -nkogqoX20.0: Autistic disorder 5. Long-term drug therapy 1. [...] DAY Qty: (90) tablet Refills: 0 Pharmacy: [facility] #[id number] olanzapine 10 mg tablet - TAKE 1 TABLET BY MOUTH EVERY DAY AT BEDTIME Qty: (90) tablet Refills: 0 Pharmacy: [facility] #[id number] venlafaxine ER 37.5 mg capsule,extended release 24 hr - Take 1 capsule(s) every day by oral route in the morning for 30 days, for Depression and anxiety. Qty: (30) capsule Refills: 0 Pharmacy: [facility] #[id number] 2. Generalized anxiety disorder - Celexa 40 mg dailyeducated on anxiety and prevention F41.1: Generalized anxiety disorder citalopram 40 mg tablet - TAKE 1 TABLET BY MOUTH EVERY DAY IN THE MORNING Qty: (90) tablet Refills: 0 Pharmacy: [facility] #[id number] 3. Insomnia disorder related to another mental disorder - hypersomnia Melatonin 3 mg at night OTC F51.05: Insomnia due to other mental disorder 4. Autistic disorder -inncqnF41.0: Autistic disorder 5. Long-term drug therapy Plan [...] DAY Qty: (90) tablet Refills: 0 Pharmacy: [facility] #[id number] 10 mg tablet - TAKE 1 TABLET BY MOUTH EVERY DAY AT BEDTIME Qty: (90) tablet Refills: 0 Pharmacy: [facility] #[id number] ER 37.5 mg capsule,extended release 24 hr - Take 1 capsule(s) every day by oral route in the morning for 30 days, for Depression and anxiety. Qty: (30) capsule Refills: 0 Pharmacy: [facility] #[id number] 2. Generalized anxiety disorder -Celexa 40 mg dailyeducated on anxiety and pgctsfpkrnX71.1: Generalized anxiety disorder citalopram 40 mg tablet - TAKE 1 TABLET BY MOUTH EVERY DAY IN THE MORNING Qty: (90) tablet Refills: 0 Pharmacy: [facility] #[id number] 3. Insomnia disorder related to another mental disorder -hypersomniaMelatonin 3 mg at night OTCF51.05: Insomnia due to other mental disorder 4. Autistic disorder -efsqcaT65.0: Autistic disorder 5. Long-term drug therapy Next Appt Details Follow Up: 3 Months, Reason: Provider Name:Christa Rankin , 09/22/2024 09:15:00 AM, [address] [facility] [address] [facility], [address], [address], Progress Notes * CESAR SPEAROB: 7 (28 yo M)Acc No.[id number]:12/02/2023 Patient: Jd DOTTYJEAN TABOR Provider: SERGIO KELLYHNP :1995 A ge:27 Y S ex:Male Date:12/02/2023 Phone: Address:[address] [place], [place] [phone] Subjective: * Chief Complaints: * 1 . Follow up rx. * HPI: H istory of Presenting Problem: Anxiety symptomsReported by james rock.Associated Symptoms:?no irritability; no palpitations; no shortness of breath; no headaches; no intrusive thoughts; no avoidant behavior; no hypervigilence; no difficulty concentrating; no difficulty controlling worry; no easily fatigue; no restlessness; no anxiety; improved sleep Bipolar DisorderReported by james rock.Type: B ipolar I Context: no m ood swings Onset/Timing: c hronic Severity: m ild Onset/Timing: c hronic Severity: m ild Associated Symptoms: reported no sadness; a nxiety; i rritability/agitation; f atigue; good energy; no excessive crying; good appetite; w eight loss; good sleep; making decisions; interest in daily activities; no feelings of worthlessness; no feeling guilty; c oncentration/memory good; no hopelessness; no helplessnesscc; follow up [...] derm and will see RA 09/06/2021. * ROS: James rock reports w eight loss none b ut reports no fever and no significant weight gain. He reports d ifficulty hearing (hearing aids) . He reports no abdominal pain, no nausea, no vomiting, no constipation, normal appetite, no diarrhea, and no GERD; s ensitivity to certain foods and caused migraines. He reports a rthralgias/joint pain b ut reports no muscle aches, no muscle weakness, no back pain, no neck pain, and no difficulty walking; p soriasis joint pain seeing RA provider dxn 2021. 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 He reports f requent or severe headaches and migraines b ut reports no loss of consciousness, no weakness, no numbness, no seizures, no dizziness, no tremor, no gait dysfunction, and no paralysis; s neurologist. He reports d epression, sleep disturbances (hyposomnia), anxiety, and memory loss b ut reports no alcohol abuse, no hallucinations, no suicidal thoughts, no mood swings, and no agitation. He reports f atigue. H e reports no chest pain, no shortness of breath when walking, no shortness of breath when lying down, and no palpitations. He reports no cough and no shortness of breath. He reports no incontinence and no difficulty urinating. * Medical History: P roblems: Autistic disorder, Bipolar affective disorder, current episode depression, Generalized anxiety disorder, Insomnia disorder related to another mental disorder, Long-term drug therapy, Overweight, Vitamin D deficiency, Weight gain, ,. * Surgical History: D enies Past Surgical History. * Hospitalization/Major Diagno stic Procedure: D enlian Past Hospitalization. * Family History: F ather: alive, Depressive disorder , Diabetes mellitus , Bipolar disorder , diagnosed with Mental health disorder. M aternal Aunt: Diabetes mellitus , Family history of cancer . M other: alive. M aternal Grandfather: Diabetes mellitus . M aternal Grandmother: Diabetes mellitus . S ister: alive, Diabetes mellitus . 2 sister(s) . . heart disease DM in FH. * Social History: T obacco Use: T obacco Control (Standard) T obacco use: N onsmoker, A dditional Findings: Tobacco non-user C urrent nonsmoker. M igrated Social History: M igrated Social History: Alcohol Intake: None 09/03/2019,Tobacco Years: Never smoker 09/03/2019. D rug/Alcohol: D rugs H ave you used drugs other than those for medical reasons in the past 12 months??No. D o you smoke marijuana?: Denies. Do you drink alcohol?: No. AUDIT-C (Standard) D id you have a drink containing alcohol in the past year? N o, P oints 0 , I nterpretation N egative. H ousehold: H ousehold M arital status: s miya, N umber of adults in household: 2 lives with parents, N umber of siblings: 2 2 sisters, M arital status of the child's parents:?, W ith whom does the child live? w ith both parents. * Medications: T aking Cholecalciferol 25 MCG (1000 UT) Capsule Oral , Taking Melatonin 3 MG Tablet Oral , Taking Wellbutrin SR 200 MG Tablet Extended Release 12 Hour Oral , Taking buPROPion HCl ER (SR) 200 MG Tablet Extended Release 12 Hour Oral , Taking AFLURIA QD 2019- (36 MOS UP)(PF)60 MCG (15 MCG X4)/0.5 ML IM SYRINGE , Notes to Pharmacist: *Reorder from [employer]Before the Call for eRx and Interaction Alerts*, Taking OLANZapine [...] SUBCUTANEOUS , Notes to Pharmacist: *[facility]*, Taking Venlafaxine HCl ER 37.5 MG Capsule Extended Release 24 Hour Oral , Medication List reviewed and reconciled with the patient * Allergies: N .K.D.A. Objective: * Vitals: W t:169.2lbs, Wt-k.75 kg, Ht: 67.00 in, Ht-cm: 170.18 cm, BMI:26.5Index, Body Surface Area: 1.9. Assessment: * Assessment: 1. B ipolar disorder, current episode depressed, mild - F31.31 (Primary) 2 .?Generalized anxiety disorder - F41.1 3 . I nsomnia due to other mental disorder - F51.05 4 . A utistic disorder - F84.0 1. Bipolar affective disorde r, current episode [...] SR 200 mg tablet,12 hr sustained-release - T NICKIE 1 TABLET BY MOUTH EVERY DAY ? Qty: (90) tablet Refills: 0 Pharmacy: [facility] #[id number] olanzapine 10 mg tablet - T NICKIE 1 TABLET BY MOUTH EVERY DAY AT BEDTIME Qty: (90)? t ablet Refills: 0 Pharmacy: [facility] #[id number] venlafaxine ER 37.5 mg capsule,extended release 24 hr - T nickie 1 capsule(s) every day by oral route in the morning for 30 days, for Depression and anxiety. Qty: (30) capsule Refills: 0 Pharmacy: [facility] #[id number] 2. Generalized anxiety disorder - Celexa 40 mg dailyeducated on anxiety and prevention F41.1: Generalized anxiety disorder citalopram 40 mg tablet - T NICKIE 1 TABLET BY MOUTH EVERY DAY IN THE MORNING Qty: (90) tablet Refills: 0 Pharmacy: [facility] #[id number] 3. Insomnia disorder related to another mental disorder - hypersomnia Melatonin 3 mg at night OTC F51.05: Insomnia due to other mental disorder 4. Autistic disorder - xxxrovP99.0: Autistic disorder 5. Long-term drug therapy Plan: * Treatment: * Procedure Codes: G 2211 VISIT COMPLEXITY INHERENT TO ONGOING CARE RELATED TO A PATIENT'S SINGLE, SERIOUS CONDITION OR A COMPLEX CONDITION * Follow Up: 3 Months * Billing Information: * Visit Code: 75043 OFFICE OUTPATIENT VISIT 25 MINUTES DETAILED HISTORY AND EXAM/MODERATE MEDICAL DECISION MAKING. * Procedure Codes: G2211 VISIT COMPLEXITY INHERENT TO ONGOING CARE RELATED TO A PATIENT'S SINGLE, SERIOUS CONDITION OR A COMPLEX CONDITION. * Sign off status: Completed true * Provider: TIFFANY KELLY Date: 0 12/02/2023 Generated for Irma milian/Aryan/Sam on: 0 08/06/2024 09:28 AM COM WRITER History and Physical Notes * HPI (History [...]
--- OUTSIDE RECORDS SUMMARY | 2024-08-06 09:28 | XMS_ITS | Encounter Summary ---
Author Organization [facility] Address [address] [place] [address] Care Team Providers Care Finance Business Manager Name Role Phone Christa Velez APRN-MANAGER STUDENT SERVICES Unavailable [phone] Oswaldo BOSCH MD, Francis G Primary Care Provider [phone] Morgan Rnadhawa MD Unavailable Pineda Randhawa MD Unavailable Will Naqvi MD Unavailable [phone] Pineda Randhawa MD Unavailable Estee Peck MD Unavailable [phone] Oswaldo OBSCH MD, Francis G Unavailable Encounter Details Date Type Department Care Team (Late st Contact Info) Description 12/04/2021 Telephone [facility] [address] [place] [address] Vivian Tello MD No info [...] be scheduled next. Patient Call Back number: [phone] documented in this encounter Plan of Treatment Upcoming Encounters Date Type Department Care Team (Late st Contact Info) Description 10/21/2024 1:30 PM CDT Office Visit [facility] - Rheumatology [address] [place] [phone] Paulino Youngblood MD [address] [place] [address] [place] [phone] 11/30/2024 3:00 PM CDT Office Visit [facility] - ENT [address] [place] [phone] Froilan Monae MD [address] [place] [address] [place] [address] 02/15/2025 10:00 AM CDT Office Visit [facility] - Internal Med [address] [place] [phone] Richard Chacon III, MD [address] [place] [address] [address] [place] [phone] documented as of this encounter Visit Diagnoses Not on filedocumented in this encounter Care Teams Finance Business Manager Relationship Specialty Start Date End Date Richard Chacon III, MD [address] [place] [address] [address] [place] [phone] PCP - General Internal Medicine 01/29/22 Richard Chacon III, MD [address] [place] [phone] PCP - Attributed-[facility] NIYAH SALCIDO P4P 11/23/23 Christa Velez APRN-MANAGER STUDENT SERVICES [address] [place] [phone] Psychiatrist Nurse Practitioner 08/07/21 Morgan Randhawa MD [address] [place] [phone] Resident - PCP Internal Medicine 01/29/22 Pineda Randhawa MD [address] [place] [phone] Resident Rheumatology 12/24/22 Will Naqvi MD [address] [place] [phone] Bottoming Machine Operator Rheumatology 12/24/22 Pineda Randhawa MD [address] [place] [phone] Resident Rheumatology 02/04/23 Estee Peck MD [address] [place] [address] Dermatology 02/04/23 documented as of this encounter
--- OUTSIDE RECORDS SUMMARY | 2024-08-06 09:29 | XMS_ITS | Clinical Summary ---
Author Organization [facility] Address [address] [facility] [place] [address] Care Team Providers Care Practice Managers Name Role Phone Christa Velez APRN-INFANTRY OFFICER Unavailable [phone] Oswaldo BOSCH MD, Francis G Primary Care Provider [phone] Morgan Randhawa MD Unavailable Pineda Randhawa MD Unavailable Will Naqvi MD Unavailable Pineda Randhawa MD Unavailable Estee Peck MD Unavailable [phone] Oswaldo BOSCH MD, Francis G Unavailable Source Comments [facility],non-owned Affiliates and Associated Physician Practices is amultiple site organization consisting of ambulatory clinics and hospital sitesin [place], [place], [place] and [place]. This disclosure is being madepursuant to the Care Everywhere program and may not contain all information available regarding this patient. Last updated 18.[facility] Allergies Active Allergy Reactions Criticality Noted Date [...] Orders Only [facility] - Rheumatology [address] [place] [phone] Paulino Youngblood MD Psoriatic arthritis (HCC) ; Psoriasis 06/07/2024 Refill [facility] - Rheumatology [address] [place] [phone] Paulino Youngblood MD Refill Request 06/01/2024 2:30 PM MANAGEMENT INTERNSHIP Office Visit [facility] - ENT [address] [place] [phone] Froilan Monae MD Dysfunction of both eustachian [...] Comments Blood Pressure 113/78 06/01/2024 2:32 PM [employer]NA[employer]EMENT INTERNS[employer] Pulse 98 06/01/2024 2:32 PM [employer] Temperature 37.1 C (98.7 F) 02/12/2024 1:37 PM CDT Respiratory Rate 18 03/19/2022 2:48 PM CDT Oxygen Saturation 96% 02/12/2024 1:37 PM CDT Inhaled Oxygen Concentration - - Weight 120.8 kg (266 lb 6.4 oz) 06/01/2024 2:32 PM [employer] INTER[employer] Height 170.2 cm (5' 7 ) 06/01/2024 2:32 PM [employer]NA[employer]EMENT INTERNS[employer] Body Mass Index 41.72 06/01/2024 2:32 PM [employer]NAGEMENT INTERNS[employer] Plan of Treatment Upcoming Encounters Date Type Department Care Team (Late st Contact Info) Description 10/21/2024 1:30 PM CDT Office Visit [facility] - Rheumatology [address] [place] [phone] Paulino Youngblood MD [address] [place] [address] [place] [phone] 11/30/2024 3:00 PM CDT Office Visit [facility] - ENT [address] [place] [address], [place] [phone] Froilan Monae MD [address] [place] [address] DE[place] [address] 02/15/2025 10:00 AM CDT Office Visit [facility] - Internal Med [address] [place] [phone] Richard Chacon III, MD [address] [place] [address] 2L [place] [phone] Health Maintenance Due Date Last Done Comments [...] Procedure Name Priority Date/Time Associated Diagnosis Comments OK REMOVE CERUMEN IMPACTED W INSTR LEFT EAR Routine 06/01/2024 3:18 PM [employer]NAGEMENT INTER[employer] Impacted cerumen of left ear HIV-1 HIV-2 ANTIBODY + HIV P24 AG PANEL Routine 07/24/2023 2:25 PM [employer] INTER[employer] Routine general medical examination at health care facility HEPATITIS C AB W/RFLX TO HCV RNA QN PCR Routine 07/05/2021 11:11 AM [employer]NAGEMENT INTERNS[employer] High risk medications (not anticoagulants) long-term use from Last 3 Months or Most Recently Relevant to Health Maintenance Results * OK REMOVE CERUMEN IMPACTED W INSTR LEFT EAR (06/01/2024 3:18 PM [employer]) Narrative Froilan Monae MD - 06/01/2024 3:18 PM [employer] Froilan Monae MD 06/01/2024 3:19 PM Procedure: [...] HIV P24 AG PANEL (07/24/2023 2:25 PM [employer]NA[employer] INTER[employer]) HIV Antigen/Antibod y 1 & 2 Non-reacti ve Non-react brian 07/24/2023 3:43 PM [employer]EMENT INTERNS[employer] [facility] Comment:No Laboratory eviden ce of HIV infection. Blood BLOOD SPECIMEN / Unknown Lab Venipuncture / Unknown 07/24/2023 2:25 PM [employer]EMENT INTERNS[employer] 07/24/2023 2:56 PM [employer]NA[employer] INTER[employer] Richard Chacon III, MD LAB - CHEMISTRY Deni DIAZ [facility] [address] [place] [address], [facility] [phone] * HEPATITIS C AB W/RFLX TO HCV RNA QN PCR (07/05/2021 11:11 AM [employer]NAGEMENT INTERNS[employer]) Hepatitis C Antibody NON-REACTI VE NON-REACT [facility] Signal to Cut-Off 0.01 <1.00 [facility] Comment: HCV antibody was non-reactive. There is no laboratory evidence of HCV infection. In most cases, no further action is required. However, if recent HCV exposure is suspected, a test for HCV RNA (test code 66894) is suggested. For additional information please refer to http://education.Apigee/faq/KTJ01e0 (This link is being provided for informational/ educational purposes only.) REPORT COMMENT: FASTING:NO Test Performed at: [facility] [address] [place] [address] SIRIA AGUILAR DO,MPH Blood BLOOD SPECIMEN / Unknown 07/05/2021 11:11 AM [employer] 07/05/2021 11:12 AM [employer]NA[employer] INTER[employer] Estee Peck MD LAB - CHEMISTRY ALEENA HERNANDEZ [facility] [address] [place] [address] from Last 3 Months or Most Recently Relevant to Health Maintenance Care Teams Practice Managers Relationship Specialty Start Date End Date Richard Chacon III, MD [address] [place] [phone] PCP - General Internal Medicine 01/29/22 Richard Chacon III, MD [address] [place] [phone] PCP - [facility] NIYAH SALCIDO P4P 11/23/23 Christa Velez APRN-INFANTRY OFFICER [address] [phone] Psychiatrist Nurse Practitioner 08/07/21 Morgan Randhawa MD [address] [facility] [place] [phone] Resident - PCP Internal Medicine 01/29/22 Pineda Randhawa MD [address] [facility] [place] [phone] Resident Rheumatology 12/24/22 Will Naqvi MD [address] [facility] 2L [place] [phone] Transportation Attendant Rheumatology 12/24/22 Pineda Randhawa MD [address] [place] [address] [place] [phone] Resident Rheumatology 02/04/23 Estee Peck MD [address] [place] [address] Dermatology 02/04/23
--- OUTSIDE RECORDS SUMMARY | 2024-08-06 09:29 | XMS_ITS ---
Author Organization [facility] [employer] Address [address] [facility] [address] [place] [address] Care Team Providers Care Projection Technician Name Role Phone Maldonado ARAUZ MD Primary Care Provider Christa Laura Unavailable [phone] Allergies No Known Allergies REASON FOR VISIT Depression, was hospitalized for feeling suicidal and thoughts of self harm, admitted himself in [place]. About 4 weeks ago maybe Medications Medication SIG (Take, Route, Frequency, Duration) Notes Start Date End Date Status COSENTYX PEN 300 MG/2 PENS (150 MG/ML) SUBCUTANEOUS *Reorder from [employer] for eRx and Interaction Alerts* 09/02/2023 Active [...] MCG X4)/0.5 ML IM SYRINGE *Reorder from [employer] for eRx and Interaction Alerts* 09/02/2023 Active [...] Hg 024 Heart Rate 105 /min 03/12/2024 Weight 269.8 lbs 03/12/2024 Weight-kg 122.38 kg 03/12/2024 Height 67.00 in 03/12/2024 Height-cm 170.18 cm 03/12/2024 BMI 42.25 kg/m2 03/12/2024 Encounters Encounter Location Date Provider Diagnosis [facility] Source [address] [place] [address] [address] 03/12/2024 Christa Rankin Bipolar disorder, current episode [...] Provider Name:Christa Rankin , 09/22/2024 09:15:00 AM, [address], [facility] [address], [place], [address], Progress Notes * CESAR SPEAROB: 7 (28 yo M)Acc No.[id number]:03/12/2024 Patient: B UCKS, JEAN Provider: Elena RANKIN PMHNP :1995 A ge:28 Y S ex:Male Date:03/12/2024 Phone: Address:[address] [facility] Pcp:Maldonado ARAUZ MD Subjective: * Chief Complaints: * 1 . Depression, was hospitalized for feeling suicidal and thoughts of self harm, admitted himself in [place]. About 4 weeks ago maybe. * HPI: H istory of Presenting Problem: Bipolar DisorderReported by james rock.Type: B ipolar I Context: no m ood swings Onset/Timing: c hronic Severity: m ild Onset/Timing: c hronic Severity: m ild Follow up Bipolar depression, NELA, Insomnia, chronic report I been doing better now, report I w as hospitalized for feeling suicidal and thoughts of self harm, with stress admitted himself in [place]. About 4 weeks ago maybe, I did [...] I am feeling great now and denies s ad, down and no hopeless or helpless, I also have more motivation to do things I like doing and eating less and lost weight, and s leep well, average 8 hours, and no SI/HI no passive thoughts no plans or intent, I been taking arthritis rx as prescribed and pain little here and there and nothing to bad I had injection and last 4 weeks, I get migraines and journal them for neurologist, I had 2 migraines this week, the situation at home slowly improved and b een nice, not feeling anxious, restless, or fidgety, [...] seen derm and will see RA 09/06/2021. C [place]-Suicide Severity Rating Scale: Suicide Risk (CSRS-screener) i n the past one month Have you wished you were or wished you could go to sleep and not wake up? N o, i n the past one month Have you actually had any thoughts of killing yourself? N o, H ave you ever done anything, started to do anything, or prepared to do anything to end your life? N o. D epression Screening: NELA-7 (2018 Edition) F eeling nervous, anxious, or on edge?Not at all, N ot being able to stop or control worrying N ot at all, W orrying too much about different things N ot at all, T rouble relaxing N ot at all, B eing so restless that it is hard to sit still N ot at all, B ecoming easily annoyed or irritable N ot at all, F eeling afraid as if something awful might happen N ot at all, T otal NELA-7 Score 0 , I nterpretation of Total ( 0 to 4) No Anxiety. D epression screening: PHQ-9 L ittle interest or pleasure in doing things N ot at all, F eeling down, depressed, or hopeless N ot at all, T rouble falling or staying asleep, or sleeping too much N ot at all, F eeling tired or having little energy N ot at all, P oor appetite or overeating N ot at all, F eeling bad about yourself or that you are a failure, or have let yourself or your family down N ot at all, T rouble concentrating on things, such as reading the newspaper or watching television N ot at all, M oving or speaking so slowly that other people could have noticed; or the opposite, being so fidgety or restless that you have been moving around a lot more than usual N ot at all, T houghts that you would be better off or of hurting yourself in some way N ot at all, T otal Score 0 . I ntervention D epression Screening Findings P ositve, F ollow-Up for Depression M anagement of mental health treatment, S uicide Risk Assessment Performed ,?Additional Evaluation for Depression P sychiatric interview and evaluation, N michele of the standardized tool used for adult depression screening: P pranav Health Questionnaire (PHQ-9).? * ROS: P pranav reports w eight loss none b ut reports no fever and no significant weight gain. He reports d ifficulty hearing (hearing aids) hx tubes in childhood [...] pain seeing RA provider dxn 2021. H e reports d ry skin; p soriasis see neon glass bender /RA provider skin d/o improving with rx. He reports f requent or severe headaches and migraines b ut reports no loss of consciousness, no weakness, no numbness, no seizures, no dizziness, no tremor, no gait dysfunction, and no paralysis; s neurologist. He reports mild depression, no sleep disturbances (hx hyposomnia), mild anxiety, and no memory loss?but reports no alcohol abuse, no hallucinations, no suicidal thoughts, no mood swings, and no agitation. He reports no fatigue. H e reports no chest pain, no [...] deficiency, Weight gain, ,. * Surgical History: t ubes ears childhood . * Hospitalization/Major Diagno stic Procedure: [place] - depression and suicidal thoughts 02/14 . * Family History: F ather: alive, Depressive [...] ith both parents. * Medications: T aking buPROPion HCl ER (SR) 200 MG Tablet [...] SYRINGE , Notes to Pharmacist: *Reorder from [employer] for eRx and Interaction Alerts*, Taking Ketoconazole [...] SUBCUTANEOUS , Notes to Pharmacist: *Reorder from [facility] for eRx and Interaction Alerts*, Taking Venlafaxine [...] * Allergies: N .K.D.A. Objective: * Vitals: B P:132/89mm Hg, HR:105/min, Wt:269.8lbs, Wt-k.38 kg, Ht: 67.00 in, Ht-cm: 170.18 cm, BMI:42.25Index, Body Surface Area: 2.4. * Examination: P sychiatry: Appearance: w ell-groomed, well-nourished, appears stated age. Abnormal body movements: n one. Affect / mood: a ppropriate, full range. Aggression: l ow. Anger control: g ood. Attention: g ood. Attitude: c ooperative. Homicidal ideation: n one. Suicidal ideation: n one. Memory status: n o impairment noted. Degree of awareness of surroundings: w ithin normal limits.? Delusions: n o. Hallucinations: n o. Impulse control: g ood. Insight: g ood. Intellectual functioning: b elow average. Comprehension - Intellectual function: a verage. Judgement: g ood. Orientation: a wake, alert and oriented x 3. Perceptual disorders: n o perceptual disorder noted. Psychomotor activity: w ithin normal range. Sexual impulse control: g ood. Speech / language: a ppropriate pitch/modulation, clear and coherent, normal rate, volume, and articulation (RVR), proper grammar used. Thought content: a ppropriate. Thought process: i ntact. Assessment: * Assessment: 1. B ipolar disorder, [...] 5. Long-term drug therapy Plan: * Treatment: 2. G eneralized anxiety disorder Refill Citalopram Hydrobromide Tablet, 40 MG, 1 tablet, Oral, Once a day, 90 days, 90 Tablet, Refills 0; R efill Venlafaxine HCl ER Capsule Extended Release 24 Hour, 37.5 MG, TAKE 1 CAPSULE BY MOUTH DAILY WITH FOOD, Oral, Once a day, 90 days, 90 Capsule, Refills 0. * Procedure Codes: 9 6127 BEHAV ASSMT W/SCORE & DOCD/STAND INSTRUMENT, G2211 VISIT COMPLEXITY INHERENT TO ONGOING CARE RELATED TO A PATIENT'S SINGLE, SERIOUS CONDITION OR A COMPLEX CONDITION * Preventive Medicine: Counseling: B P Management: P RE-HYPERTENSIVE FOLLOW-UP PLAN: e ducated on healthy b/p 120/80monitor b/p at homerefer to PCP,heart healthy diet and exciselimit salt intake and caffeine, R EFERRAL TO ALTERNATIVE / PRIMARY CARE PROVIDER: _ ____. C ommunication to patient: C ounseled the Patient on tobacco use; cessation provided n on smoker. * Follow Up: 3 Months (Reason: refer to therapy) * Billing Information: * Visit Code: 72018 OFFICE OUTPATIENT VISIT 25 MINUTES DETAILED HISTORY AND EXAM/MODERATE MEDICAL DECISION MAKING. * Procedure Codes: 67832 BEHAV ASSMT W/SCORE & DOCD/STAND INSTRUMENT. G2211 VISIT COMPLEXITY INHERENT TO ONGOING CARE RELATED TO A PATIENT'S SINGLE, SERIOUS CONDITION OR A COMPLEX CONDITION. * Sign off status: Completed true * Provider: TIFFANY KELLY Date: 03/12/2024 Generated for Irma Crowley/Sam on: 0 08/06/2024 09:28 AM TURBINE BLADE ASSEMBLER History and Physical Notes * HPI (History [...] self harm, with stress admitted himself in [place]. About 4 weeks ago maybe, I did [...] Total: (0 to 4) No Anx iety [place]-Suicide Severity Rating Scale Suicide Risk (CSRS-screener) in the past one month Have you wished you were or wished you could go to sleep and not wake up?: No in the past one month Have y ou actually had any thoughts of killing yourself?: No Have you ever done anything, started to do [...]
--- OUTSIDE RECORDS SUMMARY | 2024-08-06 09:29 | XMS_ITS | Referral Summary ---
Author Organization [facility] Address [address] [facility] [place] [address] Care Team Providers Care Floor Covering Installer Name Role Phone Christa Velez APRN-CAVALRY OFFICER Unavailable Oswaldo BOSCH MD, Francis G Primary Care Provider [phone] Morgan Randhawa MD Unavailable Pineda Randhawa MD Unavailable Will Naqvi MD Unavailable Pineda Randhawa MD Unavailable Estee Peck MD Unavailable [phone] Oswaldo BOSCH MD, Francis G Unavailable Source Comments [facility],non-owned Affiliates and Associated Physician Practices is amultiple site organization consisting of ambulatory clinics and hospital sitesin [place], [place], [place] and [place]. This disclosure is being madepursuant to the Care Everywhere program and may not contain all information available regarding this patient. Last updated 18.[facility] Encounters Date Type Department Care Team Description 07/24/2024 Orders Only [facility] - Rheumatology [address] [place] [address], [place] [address] Paulino Youngblood MD Psoriatic arthritis (HCC) ; Psoriasis 06/07/2024 Refill [facility] - Rheumatology [address] [place] [address] Paulino Youngblood MD Refill Request 06/01/2024 2:30 PM TAR BOILER Office Visit [facility] - ENT [address] [facility] [place] [facility], [place] [address] Froilan Monae MD Dysfunction of both eustachian [...] Comments Blood Pressure 113/78 06/01/2024 2:32 PM TAR BOILER Pulse 98 06/01/2024 2:32 PM TAR BOILER Temperature 37.1 C (98.7 F) 02/12/2024 1:37 PM CDT Respiratory Rate 18 03/19/2022 2:48 PM CDT Oxygen Saturation 96% 02/12/2024 1:37 PM CDT Inhaled Oxygen Concentration - - Weight 120.8 kg (266 lb 6.4 oz) 06/01/2024 2:32 PM TAR BOILER Height 170.2 cm (5' 7 ) 06/01/2024 2:32 PM TAR BOILER Body Mass Index 41.72 06/01/2024 2:32 PM TAR BOILER Plan of Treatment Upcoming Encounters Date Type Department Care Team (Late st Contact Info) Description 10/21/2024 1:30 PM CDT Office Visit [facility] - Rheumatology [address] [place] [address], [facility] [place] [phone] Paulino Youngblood MD [address] [place] [address] [place] [address] 11/30/2024 3:00 PM CDT Office Visit [facility] - ENT [address] [place] [address], [place] [phone] Froilan Monae MD [address] [place] [address] 2L [place] [address] 02/15/2025 10:00 AM CDT Office Visit [facility] - Internal Med [address] [place] [phone] Richard Chacon III, MD [address] [place] [address] 2[place] [phone] Procedures Procedure Name Priority Date/Time Associated Diagnosis Comments OR REMOVE CERUMEN IMPACTED W INSTR LEFT EAR Routine 06/01/2024 3:18 PM TAR BOILER Impacted cerumen of left ear HIV-1 HIV-2 ANTIBODY + HIV P24 AG PANEL Routine 07/24/2023 2:25 PM TAR BOILER Routine general medical examination at health care facility HEPATITIS C AB W/RFLX TO HCV RNA QN PCR Routine 07/05/2021 11:11 AM TAR BOILER High risk medications (not anticoagulants) long-term use from Last 3 Months or Most Recently Relevant to Health Maintenance Results * OR REMOVE CERUMEN IMPACTED W INSTR LEFT EAR (06/01/2024 3:18 PM TAR BOILER) Narrative Froilan Monae MD - 06/01/2024 3:18 PM TAR BOILER Froilan Monae MD 06/01/2024 3:19 PM Procedure: [...] HIV P24 AG PANEL (07/24/2023 2:25 PM TAR BOILER) HIV Antigen/Antibod y 1 & 2 Non-reacti ve Non-react brian 07/24/2023 3:43 PM TAR BOILER [facility] Comment:No Laboratory eviden ce of HIV infection. Blood BLOOD SPECIMEN / Unknown Lab Venipuncture / Unknown 07/24/2023 2:25 PM TAR BOILER 07/24/2023 2:56 PM TAR BOILER Richard Chacon III, MD LAB - CHEMISTRY O RDERABLES [facility] [address] [place] [address], [facility] [phone] * HEPATITIS C AB W/RFLX TO HCV RNA QN PCR (07/05/2021 11:11 AM TAR BOILER) Hepatitis C Antibody NON-REACTI VE NON-REACT [facility] Signal to Cut-Off 0.01 <1.00 [facility] Comment: HCV antibody was non-reactive. There is no laboratory evidence of HCV infection. In most cases, no further action is required. However, if recent HCV exposure is suspected, a test for HCV RNA (test code 24252) is suggested. For additional information please refer to http://education.iKure Techsoft/faq/AFC37n2 (This link is being provided for informational/ educational purposes only.) REPORT COMMENT: FASTING:NO Test Performed at: [facility] [address] [place] [address] SIRIA AGUILAR DO,MPH Blood BLOOD SPECIMEN / Unknown 07/05/2021 11:11 AM TAR BOILER 07/05/2021 11:12 AM TAR BOILER Estee Peck MD LAB - CHEMISTRY ALEENA HERNANDEZ [facility] Organization Address City/State/ZIP Co de Phone Number [facility] [address] [place] [address] from Last 3 Months or Most Recently Relevant to Health Maintenance Care Teams Floor Covering Installer Relationship Specialty Start Date End Date Richard Chacon III, MD [address] [facility] 2L [place] [phone] PCP - General Internal Medicine 01/29/22 Richard Chacon III, MD [address] [facility] 2[place] [phone] PCP - Attributed-[facility] NIYAH SALCIDO P4P 11/23/23 Christa Velez APRN-CAVALRY OFFICER [address] [place] [address] Psychiatrist Nurse Practitioner 08/07/21 Morgan Randhawa MD [address] [facility] [place] [place] [phone] Resident - PCP Internal Medicine 01/29/22 Pineda Randhawa MD [address] [place] [phone] Resident Rheumatology 12/24/22 Will Naqvi MD [address] [facility] [address] [place] [address] Termite Renewal Inspector Rheumatology 12/24/22 Pineda Randhawa MD [address] [facility] [address] [place] [address] Resident Rheumatology 02/04/23 Estee Peck MD [address] [facility] [address]L [place] [address] Dermatology 02/04/23
--- OUTSIDE RECORDS SUMMARY | 2024-08-06 09:29 | XMS_ITS | Encounter Summary ---
Author Organization [facility] Address [address] [place] [address] Care Team Providers Care Market Asset Protection Manager Name Role Phone Christa Velez APRN-SUPERVISOR BUILDING MAINTENANCE Unavailable Oswaldo BOSCH MD, Francis G Primary Care Provider [phone] Morgan Randhawa MD Unavailable Pineda Randhawa MD Unavailable Will Naqvi MD Unavailable Pineda Randhawa MD Unavailable Estee Peck MD Unavailable [phone] Oswaldo BOSCH MD, Francis G Unavailable Reason for Visit * Reason Onset Date Comments MEDICATION REFILL 09/09/2023 Encounter Details Date Type Department Care Team (Late st Contact Info) Description 09/09/2023 Refill [facility] - Dermatology [address], [address] [place] [address] Estee Peck MD [address] [facility] [address] [place] [address] MEDICATION REFILL Social History Tobacco [...] Office Visit [facility] - Rheumatology [address] [place] [phone] Paulino Youngblood MD [address] [place] [address] [place] [address] 11/30/2024 3:00 PM CDT Office Visit [facility] - ENT [address] [place] [phone] Froilan Monae MD [address] [place] [address] [place] [address] 02/15/2025 10:00 AM CDT Office Visit [facility] - Internal Med [address] [place] [phone] Richard Chacon III, MD [address] [place] [address] [address] [place] [address] documented as of this encounter Visit Diagnoses Diagnosis Other psoriasis documented in this encounter Care Teams Market Asset Protection Manager Relationship Specialty Start Date End Date Richard Chacon III, MD [address] [place] [address] [address] [place] [address] PCP - General Internal Medicine 01/29/22 Richard Chacon III, MD [address] [place] [phone] PCP - [facility] NIYAH SALCIDO P4P 11/23/23 Christa Velez APRN-SUPERVISOR BUILDING MAINTENANCE [address] [place] [address] Psychiatrist Nurse Practitioner 08/07/21 Morgan Randhawa MD [address] [place] [place] [phone] Resident - PCP Internal Medicine 01/29/22 Pineda Randhawa MD [address] [place] [phone] Resident Rheumatology 12/24/22 Will Naqvi MD [address] [place] [phone] Manager Clinic Rheumatology 12/24/22 Pineda Randhawa MD [address] [facility] [address] [place] [phone] Resident Rheumatology 02/04/23 Estee Peck MD [address] [place] [address] Dermatology 02/04/23 documented as of this encounter
--- OUTSIDE RECORDS SUMMARY | 2024-08-06 09:29 | XMS_ITS | Patient Health Record ---
Author Organization [facility] As [employer] Liaison Address [address] [place] [address] Care Team Providers Care Looper Operator Name Role Phone Maldonado ARAUZ MD Primary Care Provider Christa Laura Unavailable [phone] Migration, Provider Unavailable Unavailable Allergies No Known Allergies Reason For Referral No Information Medications Medication SIG (Take, Route, Frequency, Duration) Notes Start Date End Date Status OLANZapine 10 MG TAKE 1 TABLET BY MOUTH AT BEDTIME for 90 Active OLANZapine 10 MG 1 tablet Orally bedtime for 90 days Active Naproxen 500 MG Oral 09/02/2023 Act artur buPROPion HCl ER (SR) 200 MG 1 tablet in the morning Oral Once a day for 90 days Active Clobetasol Propionate 0.05 % External 09/02/2023 Active Citalopram Hydrobromide 40 MG 1 tablet Oral Once a day for 90 days Active Folic Acid 1 MG Oral 09/02/2023 Act artur Venlafaxine HCl ER 37.5 MG TAKE 1 CAPSULE BY MOUTH DAILY WITH FOOD Oral Once a day for 90 days Active Hydrocortisone 2.50% External 09/02/2023 Active COSENTYX PEN 300 MG/2 PENS (150 MG/ML) SUBCUTANEOUS *Reorder from [employer] for eRx and Interaction Alerts* 09/02/2023 Active Cholecalciferol 25 MCG (1000 UT) Oral 09/02/2023 Active Melatonin 3 MG Oral 09/02/2023 Acti ve AFLURIA QD 2019- (36 MOS UP)(PF)60 MCG (15 MCG X4)/0.5 ML IM SYRINGE *Reorder from [employer] for eRx and Interaction Alerts* 09/02/2023 Active Ketoconazole 2% External 09/02/2023 Act artur Calcipotriene 0.005 % External 09/02/2023 Active Immunizations Vaccine Route Administration Date Status Comme nts DTaP Unknown 10/20/2002 Administered DTP Unknown 03/08/1997 Administered DTP Unknown 04/23/1997 Administered DTP Unknown 07/26/1997 Administered DTP Unknown 04/06/1998 Administered Hep A, ped/adol, 2 dose Unknown 12/21/2013 Administered Hep A, unspecified formulation Unknown 12/01/2009 Admin istered Hep B, adolescent or pediatr ic (11-19), 3 dose schedule Unknown 1996 Administered Hep B, adolescent or pediatr ic (11-19), 3 dose schedule Unknown 02/03/1997 Administered Hep B, adolescent or pediatr ic (11-19), 3 dose schedule Unknown 07/26/1997 Administered Hib, unspecified formulation Unknown 03/08/1997 Adminis tered Hib, unspecified formulation Unknown 04/23/1997 Adminis tered Hib, unspecified formulation Unknown 07/26/1997 Adminis tered Hib, unspecified formulation Unknown 04/06/1998 Adminis tered Hib, unspecified formulation Unknown 10/20/2002 Adminis tered HPV (human papillomavirus), quadrivalent, 3 dose schedule Unknown 12/01/2009 Administered HPV (human papillomavirus), quadrivalent, 3 dose schedule Unknown 03/14/2010 Administered HPV (human papillomavirus), quadrivalent, 3 dose schedule Unknown 07/14/2010 Administered Influenza (split), preservat artur free, 6-35 months Unknown 06/02/2007 Administered Influenza virus vaccine, quadrivalent (IIV4), split virus, 0.25 mL dosage Unknown 03/24/2020 Administered IPV Unknown 03/08/1997 Administered IPV Unknown 04/23/1997 Administered IPV Unknown 07/26/1997 Administered IPV Unknown 10/20/2002 Administered Meningococcal MCV4P Unknown 12/21/2013 Administered Meningococcal Quadrivalent Unknown 12/01/2009 Administe red MMR Unknown 01/04/1998 Administered MMR Unknown 10/20/2002 Administered Moderna Covid-19 Vaccine 1st dose Unknown 07/24/2021 Ad ministered Novel [id number], preservative free Unknown 05/30/2015 Administered Novel [id number]-[id number], preservative free Unknown 03/26/2018 Administered Novel Rbkkqsqdq-W4O1-00, preservative free Unknown 03/18/2020 Administered Pfizer Biontech Covid-19 Vac cine 2nd dose Unknown 09/22/2020 Administered Pfizer Biontech Covid-19 Vac cine 2nd dose Unknown 10/13/2020 Administered Tdap Unknown 12/01/2009 Administered Varicella Unknown 12/01/2009 Administered Varicella Unknown 03/14/2010 Administered Social History Tobacco Use: Social History Observation [...] Problem Bipolar affective disorder, currently depressed, mild (372164938) Bipolar disorder, current episode depressed, mild (F31.31) 4 Active confirmed Problem Generalized anxiety disorder (97455256) Generalized anxiety disorder (F41.1) 4 Active confirmed Problem Insomnia disorder related to another mental disorder (29625707) Insomnia due to other mental disorder (F51.05) 4 Active confirmed Problem Pervasive developmental disorder (disorder) (30687582) Autistic disorder (F84.0) 4 Active confirmed Vital Signs Heart Rate 80 /min 05/26/2024 Respiratory Rate 17 /min 05/26/2024 Blood pressure diastolic 84 mm Hg 05/26/2024 Height-cm 170.18 cm 05/26/2024 Weight-kg 122.38 kg 03/12/2024 Height 67.00 in 05/26/2024 Blood pressure systolic 129 mm Hg 05/26/2024 Weight 269.8 lbs 03/12/2024 BMI 42.25 kg/m2 03/12/2024 Encounters Encounter Location Date Provider Diagnosis [facility] [address] [place] [phone] 09/02/2023 Christa Rankin Generalized anxiety disorder F41.1 ; Autistic disorder F84.0 ; Bipolar disorder, current episode depressed, mild F31.31 ; Vitamin D deficiency, unspecified E55.9 ; Migraine, unspecified, not intractable, without status migrainosus G43.909 ; Insomnia due to other mental disorder F51.05 ; Primary insomnia F51.01 and Other terminal carman (current) drug therapy Z79.899 [facility] [address] [facility] [address] [place] [address] 12/02/2023 Christa Rankin Bipolar disorder, current episode depressed, mild F31.31 ; Generalized anxiety disorder F41.1 ; Insomnia due to other mental disorder F51.05 and Autistic disorder F84.0 [facility] [address] [facility] [address] [place] [address] 03/12/2024 Christa Rankin Bipolar disorder, current episode depressed, mild F31.31 ; Generalized anxiety disorder F41.1 ; Insomnia due to other mental disorder F51.05 and Autistic disorder F84.0 [facility] [address] [facility] [address] [place] [address] 05/26/2024 Christa Rankin Bipolar disorder, current episode depressed, mild F31.31 ; Generalized anxiety disorder F41.1 ; Insomnia due to other mental disorder F51.05 and Autistic disorder F84.0 [facility] [address] [address] 11/09/2023 Provider Migration [place] [id number] [phone] 11/10/2023 Provider Migration Assessments Encounter Date Diagnosis (ICD Code) Assessment Notes Treatment Notes Treatment Clinical Notes Section Notes 09/02/2023 Vitamin D deficiency, unspecified (ICD-10 - E55.9) 09/02/2023 Bipolar disorder, current episode depressed, mild (ICD-10 - F31.31) 09/02/2023 Generalized anxiety disorder (ICD-10 - F41.1) 09/02/2023 Primary insomnia (ICD-10 - F51.01) 09/02/2023 Insomnia due to other mental disorder (ICD-10 - F51.05) 09/02/2023 Autistic disorder (ICD-10 - F84.0) 09/02/2023 Migraine, unspecified, not intractable, without status migrainosus (ICD-10 - G43.909) 09/02/2023 Other snf (current) drug therapy (ICD-10 - Z79.899) 12/02/2023 Bipolar disorder, current episode depressed, mild [...] DAY Qty: (90) tablet Refills: 0 Pharmacy: [facility] #[id number] olanzapine 10 mg tablet - TAKE 1 TABLET BY MOUTH EVERY DAY AT BEDTIME Qty: (90) tablet Refills: 0 Pharmacy: [facility] #[id number] venlafaxine ER 37.5 mg capsule,extended release 24 hr - Take 1 capsule(s) every day by oral route in the morning for 30 days, for Depression and anxiety. Qty: (30) capsule Refills: 0 Pharmacy: [facility] #[id number] 2. Generalized anxiety disorder - Celexa 40 mg dailyeducated on anxiety and prevention F41.1: Generalized anxiety disorder citalopram 40 mg tablet - TAKE 1 TABLET BY MOUTH EVERY DAY IN THE MORNING Qty: (90) tablet Refills: 0 Pharmacy: [facility] #[id number] 3. Insomnia disorder related to another mental disorder - hypersomnia Melatonin 3 mg at night OTC F51.05: Insomnia due to other mental disorder 4. Autistic disorder -vleopoP77.0: Autistic disorder 5. Long-term drug therapy 12/02/2023 [...] DAY Qty: (90) tablet Refills: 0 Pharmacy: [facility] #[id number] olanzapine 10 mg tablet - TAKE 1 TABLET BY MOUTH EVERY DAY AT BEDTIME Qty: (90) tablet Refills: 0 Pharmacy: [facility] #[id number] venlafaxine ER 37.5 mg capsule,extended release 24 hr - Take 1 capsule(s) every day by oral route in the morning for 30 days, for Depression and anxiety. Qty: (30) capsule Refills: 0 Pharmacy: [facility] #[id number] 2. Generalized anxiety disorder - Celexa 40 mg dailyeducated on anxiety and prevention F41.1: Generalized anxiety disorder citalopram 40 mg tablet - TAKE 1 TABLET BY MOUTH EVERY DAY IN THE MORNING Qty: (90) tablet Refills: 0 Pharmacy: [facility] #[id number] 3. Insomnia disorder related to another mental disorder - hypersomnia Melatonin 3 mg at night OTC F51.05: Insomnia due to other mental disorder 4. Autistic disorder -psswgmT02.0: Autistic disorder 5. Long-term drug therapy 03/12/2024 Bipolar disorder, current episode depressed, mild [...] disorder -stable 5. Long-term drug therapy 05/26/2024 Bipolar disorder, current episode depressed, mild [...] Autistic disorder -stable 5. Long-term drug therapy 12/02/2023 Insomnia due [...] DAY Qty: (90) tablet Refills: 0 Pharmacy: [facility] #[id number] olanzapine 10 mg tablet - TAKE 1 TABLET BY MOUTH EVERY DAY AT BEDTIME Qty: (90) tablet Refills: 0 Pharmacy: [facility] #[id number] venlafaxine ER 37.5 mg capsule,extended release 24 hr - Take 1 capsule(s) every day by oral route in the morning for 30 days, for Depression and anxiety. Qty: (30) capsule Refills: 0 Pharmacy: [facility] #[id number] 2. Generalized anxiety disorder - Celexa 40 mg dailyeducated on anxiety and prevention F41.1: Generalized anxiety disorder citalopram 40 mg tablet - TAKE 1 TABLET BY MOUTH EVERY DAY IN THE MORNING Qty: (90) tablet Refills: 0 Pharmacy: [facility] #[id number] 3. Insomnia disorder related to another mental disorder - hypersomnia Melatonin 3 mg at night OTC F51.05: Insomnia due to other mental disorder 4. Autistic disorder -uxecarC27.0: Autistic disorder 5. Long-term drug therapy 12/02/2023 [...] DAY Qty: (90) tablet Refills: 0 Pharmacy: [facility] #[id number] olanzapine 10 mg tablet - TAKE 1 TABLET BY MOUTH EVERY DAY AT BEDTIME Qty: (90) tablet Refills: 0 Pharmacy: [facility] #[id number] venlafaxine ER 37.5 mg capsule,extended release 24 hr - Take 1 capsule(s) every day by oral route in the morning for 30 days, for Depression and anxiety. Qty: (30) capsule Refills: 0 Pharmacy: [facility] #[id number] 2. Generalized anxiety disorder - Celexa 40 mg dailyeducated on anxiety and prevention F41.1: Generalized anxiety disorder citalopram 40 mg tablet - TAKE 1 TABLET BY MOUTH EVERY DAY IN THE MORNING Qty: (90) tablet Refills: 0 Pharmacy: [facility] #[id number] 3. Insomnia disorder related to another mental disorder - hypersomnia Melatonin 3 mg at night OTC F51.05: Insomnia due to other mental disorder 4. Autistic disorder -dfdpdyO17.0: Autistic disorder 5. Long-term drug therapy 03/12/2024 Insomnia due [...] current episode depression - Neurologist for migraines 2023 refer to therapy Zyprexa 10 mg [...] Autistic disorder -stable 5. Long-term drug therapy 12/02/2023 Other 1. [...] DAY Qty: (90) tablet Refills: 0 Pharmacy: [facility] #[id number] 10 mg tablet - TAKE 1 TABLET BY MOUTH EVERY DAY AT BEDTIME Qty: (90) tablet Refills: 0 Pharmacy: [facility] #[id number] ER 37.5 mg capsule,extended release 24 hr - Take 1 capsule(s) every day by oral route in the morning for 30 days, for Depression and anxiety. Qty: (30) capsule Refills: 0 Pharmacy: [facility] #[id number] 2. Generalized anxiety disorder -Celexa 40 mg dailyeducated on anxiety and bvvdgnqpyiI02.1: Generalized anxiety disorder citalopram 40 mg tablet - TAKE 1 TABLET BY MOUTH EVERY DAY IN THE MORNING Qty: (90) tablet Refills: 0 Pharmacy: [facility] #[id number] 3. Insomnia disorder related to another mental disorder -hypersomniaMelat onin 3 mg at night OTCF51.05: Insomnia due to other mental disorder 4. Autistic disorder -smwoqhK38.0: Autistic disorder 5. Long-term drug therapy 1. [...] DAY Qty: (90) tablet Refills: 0 Pharmacy: [facility] #[id number] olanzapine 10 mg tablet - TAKE 1 TABLET BY MOUTH EVERY DAY AT BEDTIME Qty: (90) tablet Refills: 0 Pharmacy: [facility] #[id number] venlafaxine ER 37.5 mg capsule,extended release 24 hr - Take 1 capsule(s) every day by oral route in the morning for 30 days, for Depression and anxiety. Qty: (30) capsule Refills: 0 Pharmacy: [facility] #[id number] 2. Generalized anxiety disorder - Celexa 40 mg dailyeducated on anxiety and prevention F41.1: Generalized anxiety disorder citalopram 40 mg tablet - TAKE 1 TABLET BY MOUTH EVERY DAY IN THE MORNING Qty: (90) tablet Refills: 0 Pharmacy: [facility] #[id number] 3. Insomnia disorder related to another mental disorder - hypersomnia Melatonin 3 mg at night OTC F51.05: Insomnia due to other mental disorder 4. Autistic disorder -tczkhtG72.0: Autistic disorder 5. Long-term drug therapy Plan Of Treatment Next Appt Details Provider Name:Christa Rankin , 09/22/2024 09:15:00 AM, [address], [address], [place], [address], Insurance Providers Payer Name Payer Address Payer Phone Subscriber Number Group Number Insured Name Patient Relationship to Insured Coverage Start Date Coverage End Date [facility] Medicare Replacement/ Advantage - Ppo [address] [address] [place] [address] [id number] JEAN SPEAR Self - patient is the insured [place] [address] [address] [place] [address] [id number] JEAN SPEAR Self - patient is the insured Medical (General) History Medical History History ICD Code Problems: Autistic disorder Bipolar affective disorder, current epis ode depression Generalized anxiety disorder Insomnia disorder related to another men bridgette disorder Long-term drug therapy Overweight Vitamin D deficiency Weight gain , Surgical History Surgery Date(Month/Year) tubes ears childhood Hospitalization History Reason Date(Month/Year) [facility] - depression and suicidal though ts 02/14
--- OUTSIDE RECORDS SUMMARY | 2024-08-06 09:29 | XMS_ITS | Patient Health Summary ---
Author Organization [facility] Address [address] [place] [address] Care Team Providers Care Landscaper Name Role Phone Christa Velez APRN-CRANE CREW SUPERVISOR Unavailable [phone] Oswaldo BOSCH MD, Francis G Primary Care Provider [phone] Morgan Randhawa MD Unavailable Pineda Randhawa MD Unavailable Will Naqvi MD Unavailable Pineda Randhawa MD Unavailable Estee Peck MD Unavailable Oswaldo BOSCH MD, Francis G Unavailable Note from [facility],non-owned Affiliates and Associated Physician Practices is amultiple site organization consisting of ambulatory clinics and hospital sitesin [place], [place], [place] and [place]. This disclosure is being madepursuant to the Care Everywhere program and may not contain all information available regarding this patient. Last updated 18.[facility] Allergies * Food(Headache) -Low Criticality Medications * [...] Comments Blood Pressure 113/78 06/01/2024 2:32 PM MANAGER WELLNESS Pulse 98 06/01/2024 2:32 PM MANAGER WELLNESS Temperature 37.1 C (98.7 F) 02/12/2024 1:37 PM CDT Respiratory Rate 18 03/19/2022 2:48 PM CDT Oxygen Saturation 96% 02/12/2024 1:37 PM CDT Inhaled Oxygen Concentration - - Weight 120.8 kg (266 lb 6.4 oz) 06/01/2024 2:32 PM MANAGER WELLNESS Height 170.2 cm (5' 7 ) 06/01/2024 2:32 PM MANAGER WELLNESS Body Mass Index 41.72 06/01/2024 2:32 PM MANAGER WELLNESS Procedures * AK REMOVE CERUMEN IMPACTED W INSTR LEFT EAR(Performed 06/01/2024) Performed for Impacted cerumen of left ear * AK REMOVE CERUMEN IMPACTED W INSTR ARMIDA(Performed 01/13/2024) Performed for Bilateral impacted cerumen * ERYTHROCYTE SEDIMENTATION RATE(Performed 11/22/2023) Performed for Psoriatic arthritis (HCC), 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[facility]), Psoriasis * C-REACTIVE PROTEIN(Performed 11/22/2023) [...] type, unspecified whether serious comorbidity present * AK EAR MICROSCOPY EXAMINATION(Performed 03/21/2023) Performed for Excessive cerumen in both ear canals * AUDIOLOGY/TYMPANOMETRY ORDER(Performed 03/21/2023) * COMPREHENSIVE METABOLIC PANEL(Performed 06/06/2022) Performed for Psoriatic arthritis (HCC), Therapeutic drug monitoring * CBC W AUTO DIFFERENTIAL(Performed 06/06/2022) Performed for Psoriatic arthritis (HCC), Therapeutic drug monitoring * AK EAR MICROSCOPY EXAMINATION(Performed 03/19/2022) Performed for Dysfunction [...] site * CULTURE ABSCESS(Performed 06/18/2011) Results * AK REMOVE CERUMEN IMPACTED W INSTR LEFT EAR (06/01/2024 3:18 PM MANAGER WELLNESS) Froilan Ferrer MD - 06/01/2024 3:18 PM MANAGER WELLNESS Froilan Monae MD 06/01/2024 3:19 PM Procedure: [...] Monae MD PROCEDURE/MINOR JAJA GICAL ORDERABLES * AK REMOVE CERUMEN IMPACTED W INSTR ARMIDA (01/13/2024 [...] IU/mL 11/27/2023 8:48 PM CDT [facility] ([facility]) QuantiFERON Nil Value 0.01 IU/mL 11/27/2023 8:48 PM CDT [facility] ([facility]) QuantiFERON Plus TB1 Minus NIL 0.02 <=0.34 IU/mL 11/27/2023 8:48 PM CDT [facility] ([facility]) QuantiFERON Plus TB2 Minus NIL 0.03 <=0.34 IU/mL 11/27/2023 8:48 PM CDT [facility] ([facility]) QuantiFERON-TB Gold Plus Negative Negative 11/27/2023 8:48 PM CDT [facility] ([facility]) Comment: INTERPRETIVE INFORMATION:Quantiferon TB Gold Plus [...] Mycobacterium tuberculosis Infection -- [place], 2010 (http://www.cdc.gov/mmwr/preview/mmwrhtml/pd2456p7.htm), for more information concerning test performance in low-prevalence populations and use in occupational screening. Performed By: [address] [address] Cell Room Operator: Woo Bee MD, PhD CLIA Number: [id number] Blood BLOOD SPECIMEN / Unknown Lab Venipuncture / Unknown 11/22/2023 9:49 AM CDT 11/22/2023 9:57 AM CDT Guillermo Galicia MD LAB - CHEMISTRY ALEENA HERNANDEZ [facility] ([facility]) [address] [place] [id number] * (ABNORMAL) C-REACTIVE PROTEIN (11/22/2023 9:49 AM CDT) Only the most recent of2 resultswithin the time period is included. C-Reactive Protein 0.7(H) <=0.5 mg/dL 11/22/2023 10:29 AM CDT [facility] Blood BLOOD SPECIMEN / Unknown Lab Venipuncture / Unknown 11/22/2023 9:49 AM CDT 11/22/2023 10:01 AM CDT Will Naqvi MD LAB - CHEMISTRY ALEENA HERNANDEZ [address] [address], [place] [phone] * ERYTHROCYTE SEDIMENTATION RATE (11/22/2023 9:49 AM CDT) Only the most recent of2 resultswithin the time period is included. Erythrocyte Sedimentation Rate Westergren 6 0 - 15 MM/HR 11/22/2023 10:16 AM CDT [facility] Blood BLOOD SPECIMEN / Unknown Lab Venipuncture / Unknown 11/22/2023 9:49 AM CDT 11/22/2023 10:01 AM CDT Will Naqvi MD LAB - HEMATOLOGY ORD ERABLES [facility] [address] [place] [address], [facility] [phone] * (ABNORMAL) CBC WITH DIFFERENTIAL (11/22/2023 9:49 AM T) Only the most recent of9 resultswithin the time period is included. WBC 5.9 4.0 - 10.7 x10E9/L 11/22/2023 10:09 AM [facility] RBC Count 4.46 4.30 - 5.80 x10E12/L 11/22/2023 10:09 AM [facility] Hemoglobin 12.7(L) 13.3 - 17.5 g/dL 11/22/2023 10:09 AM [facility] Hematocrit 37.3(L) 38.7 - 51.1 % 11/22/2023 10:09 AM [facility] MCV 83.6 80.0 - 98.0 fL 11/22/2023 10:09 AM [facility] MCH 28.5 26.7 - 33.6 pg 11/22/2023 10:09 AM [facility] MCHC 34.0 31.7 - 36.3 g/dL 11/22/2023 10:09 AM [facility] RDW-CV 13.3 11.3 - 14.8 % 11/22/2023 10:09 AM [facility] Platelet Count 195 150 - 420 x10E9/L 11/22/2023 10:09 AM [facility] MPV 9.7 7.8 - 11.4 fL 11/22/2023 10:09 AM [facility] Neutrophil % 71.2 41.0 - 74.0 % 11/22/2023 10:09 AM [facility] Lymphocyte % 21.5 17.0 - 47.0 % 11/22/2023 10:09 AM [facility] Monocyte % 3.8 3.0 - 11.0 % 11/22/2023 10:09 AM [facility] Eosinophil % 1.9 0.0 - 7.0 % 11/22/2023 10:09 AM [facility] Basophil % 0.7 0.0 - 1.6 % 11/22/2023 10:09 AM [facility] Immature Granulocytes % 0.9 0.0 - 1.0 % 11/22/2023 10:09 AM [facility] Neutrophil Absolute 4.18 1.60 - 7.50 x10E9/L 11/22/2023 10:09 AM [facility] Lymphocyte Absolute 1.26 1.00 - 4.40 x10E9/L 11/22/2023 10:09 AM [facility] Monocyte Absolute 0.22 0.15 - 1.00 x10E9/L 11/22/2023 10:09 AM [facility] Eosinophil Absolute 0.11 0.00 - 0.60 x10E9/L 11/22/2023 10:09 AM [facility] Basophil Absolute 0.04 0.00 - 0.13 x10E9/L 11/22/2023 10:09 AM [facility] Blood BLOOD SPECIMEN / Unknown Lab Venipuncture / Unknown 11/22/2023 9:49 AM CDT 11/22/2023 10:01 AM T Will Naqvi MD LAB - HEMATOLOGY ORD ERABLES Performing Organization Address City/State/[facility] Co de Phone Number [facility] [address] [place] [address], [facility] [phone] * (ABNORMAL) COMPREHENSIVE METABOLIC PANEL (11/22/2023 9:49 AM T) Only the most recent of10 resultswithin the time period is included. BUN 11 7 - 26 mg/dL 11/22/2023 10:29 AM [facility] Creatinine 1.10 0.71 - 1.16 mg/dL 11/22/2023 10:29 AM [facility] Sodium 138 136 - 145 mmol/L 11/22/2023 10:29 AM [facility] Potassium 3.9 3.5 - 4.5 mmol/L 11/22/2023 10:29 AM [facility] Chloride 109(H) 98 - 107 mmol/L 11/22/2023 10:29 AM [facility] CO2 22 22 - 29 mmol/L 11/22/2023 10:29 AM [facility] Glucose 172(H) 70 - 115 mg/dL 11/22/2023 10:29 AM [facility] Calcium 9.4 8.4 - 10.2 mg/dL 11/22/2023 10:29 AM [facility] Protein Total 6.6 6.0 - 8.3 g/dL 11/22/2023 10:29 AM [facility] Albumin 3.8 3.4 - 5.0 g/dL 11/22/2023 10:29 AM [facility] Bilirubin Total 0.3 0.2 - 1.2 mg/dL 11/22/2023 10:29 AM [facility] Alkaline Phosphatase 121 40 - 150 U/L 11/22/2023 10:29 AM [facility] ALT 49 5 - 55 U/L 11/22/2023 10:29 AM [facility] AST 17 5 - 34 U/L 11/22/2023 10:29 AM [facility] Anion Gap 7 6 - 16 11/22/2023 10:29 AM [facility] BUN/Creatinine Ratio 10 7 - 23 11/22/2023 10:29 AM [facility] Osmolality Calculated 289 275 - 295 mOsm/kg 11/22/2023 10:29 AM [facility] Albumin/Globulin Ratio 1.4 1.1 - 2.3 11/22/2023 10:29 AM [facility] eGFR by CKD-EPI >90 >=90 mL/min/1.7 3 m2 11/22/2023 10:29 AM [facility] Blood BLOOD SPECIMEN / Unknown Lab Venipuncture / Unknown 11/22/2023 9:49 AM CDT 11/22/2023 10:01 AM CDT Will Naqvi MD LAB - CHEMISTRY ALEENA Toney Organization Address City/State/ZIP Co de Phone Number [facility] [address] [place] [phone], [facility] [phone] * XR FOOT RIGHT 3VW OR MORE (10/17/2023 1:57 PM CDT) Only the most recent of2 resultswithin the time period is included. Anatomical Region Laterality Modality Ankle / Foot Radiographic Yoly ging 10/17/2023 2:07 PM CDT Impressions 10/17/2023 9:28 PM CDT IMPRESSION: No significant arthritis in bilateral hands, wrists, feet and sacroiliac joints. Report dictated by Efrain Barnes MD (president + publisher). I, Ko Romano MD have personally reviewed [...] DATE/TIME OF EXAM: 10/17/2023 1:57 PM, LOCATION [facility] INDICATION: L40.50: Psoriatic arthritis ([facility]) D84.821: 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[facility]) Z79.899: 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[facility]) L40.9: Psoriasis ADDITIONAL CLINICAL INFORMATION: [...] HAND RIGHT 3VW OR MORE, XR HAND [id number] OR MORE, XR FOOT LEFT 3VW OR MORE, DATE/TIME OF EXAM: 10/17/2023 1:57PM, LOCATION [facility] INDICATION: L40.50: Psoriatic arthritis (HCC) D84.821: Immunosuppression [...] Report dictated by Efrain Barnes MD (president + publisher). Ko Pascual MD have personally reviewed and [...] Report dictated by Efrain Barnes MD (president + publisher). Ko Pascual MD have personally reviewed and [...] DATE/TIME OF EXAM: 10/17/2023 1:57 PM, LOCATION [facility] INDICATION: L40.50: Psoriatic arthritis ([facility]) D84.821: Immunosuppression due to drug [...] HAND RIGHT 3VW OR MORE, XR HAND [id number] OR MORE, XR FOOT LEFT 3VW OR MORE, DATE/TIME OF EXAM: 10/17/2023 1:57PM, LOCATION [facility] INDICATION: L40.50: Psoriatic arthritis (HCC) D84.821: Immunosuppression [...] Report dictated by Efrain Barnes MD (president + publisher). Ko Pascual MD have personally reviewed and [...] Report dictated by Efrain Barnes MD (president + publisher). Ko Pascual MD have personally reviewed and [...] DATE/TIME OF EXAM: 10/17/2023 1:57 PM, LOCATION [facility] INDICATION: L40.50: Psoriatic arthritis (HCC) D84.821: Immunosuppression [...] HAND RIGHT 3VW OR MORE, XR HAND [id number] OR MORE, XR FOOT LEFT 3VW OR MORE, DATE/TIME OF EXAM: 10/17/2023 1:57PM, LOCATION [facility] INDICATION: L40.50: Psoriatic arthritis (HCC) D84.821: Immunosuppression [...] Report dictated by Efrain Barnes MD (president + publisher). I, Ko Romano MD have personally reviewed [...] Report dictated by Efrain Barnes MD (president + publisher). I, Ko Romano MD have personally reviewed [...] DATE/TIME OF EXAM: 10/17/2023 1:57 PM, LOCATION [facility] INDICATION: L40.50: Psoriatic arthritis (HCC) D84.821: Immunosuppression [...] HAND RIGHT 3VW OR MORE, XR HAND [id number] OR MORE, XR FOOT LEFT 3VW OR MORE, DATE/TIME OF EXAM: 10/17/2023 1:57PM, LOCATION [facility] INDICATION: L40.50: Psoriatic arthritis (HCC) D84.821: Immunosuppression [...] Report dictated by Efrain Barnes MD (president + publisher). Ko Pascual MD have personally reviewed and interpreted this examination/study. > Interpreting Provider: oK Romano MD on 10/17/2023 9:28 PM Will Naqvi MD DIAGNOSTIC IMAGING O RDERABLES * XR WRIST RIGHT 2VW (10/17/2023 1:57 PM CDT) Anatomical Region Laterality Modality Wrist / Hand Radiographic Yoly ging 10/17/2023 2:07 PM CDT Impressions 10/17/2023 9:28 PM CDT IMPRESSION: No significant arthritis in bilateral hands, wrists, feet and sacroiliac joints. Report dictated by Efrain Barnes MD (president + publisher). Ko Pascual MD have personally reviewed and [...] DATE/TIME OF EXAM: 10/17/2023 1:57 PM, LOCATION [facility] INDICATION: L40.50: Psoriatic arthritis (HCC) D84.821: Immunosuppression [...] HAND RIGHT 3VW OR MORE, XR HAND [id number] OR MORE, XR FOOT LEFT 3VW OR MORE, DATE/TIME OF EXAM: 10/17/2023 1:57PM, LOCATION [facility] INDICATION: L40.50: Psoriatic arthritis ([facility]) D84.821: 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[facility]) Z79.899: 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[facility]) L40.9: Psoriasis ADDITIONAL CLINICAL INFORMATION: [...] Report dictated by Efrain Barnes MD (president + publisher). Ko Pascual MD have personally reviewed and [...] Report dictated by Efrain Barnes MD (president + publisher). Ko Pascual MD have personally reviewed and [...] DATE/TIME OF EXAM: 10/17/2023 1:57 PM, LOCATION [facility] INDICATION: L40.50: Psoriatic arthritis (HCC) D84.821: Immunosuppression [...] HAND RIGHT 3VW OR MORE, XR HAND [id number] OR MORE, XR FOOT LEFT 3VW OR MORE, DATE/TIME OF EXAM: 10/17/2023 1:57PM, LOCATION [facility] INDICATION: L40.50: Psoriatic arthritis (HCC) D84.821: Immunosuppression [...] Report dictated by Efrain Barnes MD (president + publisher). Ko Pascual MD have personally reviewed and interpreted this examination/study. > Interpreting Provider: Ko Romano MD on 10/17/2023 9:28 PM Will Naqvi MD DIAGNOSTIC IMAGING O RDERABLES * XR SI JOINTS 3VW OR MORE (10/17/2023 1:57 PM CDT) Only the most recent of2 resultswithin the time period is included. Anatomical Region Laterality Modality Pelvis, Lower Extremity [facility] 10/17/2023 2:07 PM CDT Impressions 10/17/2023 9:28 PM CDT IMPRESSION: No significant arthritis in bilateral hands, wrists, feet and sacroiliac joints. Report dictated by Efrain Barnes MD (president + publisher). Ko Pascual MD have personally reviewed and [...] DATE/TIME OF EXAM: 10/17/2023 1:57 PM, LOCATION [facility] INDICATION: L40.50: Psoriatic arthritis (HCC) D84.821: Immunosuppression [...] HAND RIGHT 3VW OR MORE, XR HAND [id number] OR MORE, XR FOOT LEFT 3VW OR MORE, DATE/TIME OF EXAM: 10/17/2023 1:57PM, LOCATION [facility] INDICATION: L40.50: Psoriatic arthritis (HCC) D84.821: Immunosuppression [...] Report dictated by Efrain Barnes MD (president + publisher). I, Ko Romano MD have personally reviewed and interpreted this examination/study. > Interpreting Provider: Ko Romano MD on 10/17/2023 9:28 PM Will Naqvi MD DIAGNOSTIC IMAGING O RDERABLES * HIV-1 HIV-2 ANTIBODY + HIV P24 AG PANEL (07/24/2023 2:25 PM MANAGER WELLNESS) HIV Antigen/Antibod y 1 & 2 Non-reacti ve Non-react brian 07/24/2023 3:43 PM MANAGER WELLNESS [facility] Comment:No Laboratory eviden ce of HIV infection. Blood BLOOD SPECIMEN / Unknown Lab Venipuncture / Unknown 07/24/2023 2:25 PM MANAGER WELLNESS 07/24/2023 2:56 PM MANAGER WELLNESS Richard Chacon III, MD LAB - CHEMISTRY O RDERARADAMES Performing Organization Address City/[facility]/ZIP Co de Phone Number [facility] [address] [place] [address], [facility] [phone] * (ABNORMAL) HEMOGLOBIN A1C (07/24/2023 2:25 PM MANAGER WELLNESS) Only the most recent of2 resultswithin the time period is included. Hemoglobin A1c 5.7(H) <=5.6 % 07/25/2023 11:16 AM MANAGER WELLNESS [facility] Estimated Average Glucose 117 mg/dL 07/25/2023 11:16 AM [facility] Comment: HbA1c Interpretation: Normal : < 5.7% Pre-diabetes: 5.7-6.4% Diabetes: Equal to or greater than 6.5% Test results diagnostic of diabetes should be repeated for confirmation. Treatment target values recommended by ADA and other clinical organizations should be used to evaluate metabolic control in patients. Reference: [place] [employer], Standards of Care in Diabetes -2020 In patients 70 years and older consider HbA1c target range of 7.0-7.5% (Reference: Alberto Everett et al. JAMDA. 2012) The Sebia assay for the measurement of HbA1c is a National Glycohemoglobin Standardization Program (NGSP) certified method. Blood BLOOD SPECIMEN / Unknown Lab Venipuncture / Unknown 07/24/2023 2:25 PM MANAGER WELLNESS 07/24/2023 2:58 PM MANAGER WELLNESS Richard Chacon III, MD LAB - CHEMISTRY O RDERABLES [facility] [address] [place] [address], [facility] [phone] * (ABNORMAL) LIPID PROFILE (07/24/2023 2:25 PM MANAGER WELLNESS) Only the most recent of2 resultswithin the time period is included. Cholesterol Total 151 <200 mg/dL 07/24/2023 3:25 PM [facility] HDL 27(L) >40 mg/dL 07/24/2023 3:25 PM [facility] Comment: ATP III Classification of HDL Cholesterol: <40 mg/dL: Considered a major risk factor. >60 mg/dL: Considered a negative risk factor. LDL Calculated 99 <100 mg/dL 07/24/2023 3:25 PM [facility] Comment: ATP III Classification of LDL Cholesterol: <100 mg/dL: Optimal 100 - 129 mg/dL: Near Optimal/Above Optimal 130 - 159 mg/dL: Borderline High 160 - 189 mg/dL: High >190 mg/dL: Very High Triglycerides 124 <150 mg/dL 07/24/2023 3:25 PM [facility] Comment: ATP III Classification of Triglycerides: <150 mg/dL: Normal 150 - 199 mg/dL: Borderline High 200 - 400 mg/dL: High >500 mg/dL: Very High Blood BLOOD SPECIMEN / Unknown Lab Venipuncture / Unknown 07/24/2023 2:25 PM MANAGER WELLNESS 07/24/2023 2:57 PM MANAGER WELLNESS Richard Chacon III, MD LAB - CHEMISTRY O RDERABLES Performing Organization Address [facility]/State/ZIP Co de Phone Number [facility] [address] [place] [address], [facility] [phone] * AK EAR MICROSCOPY EXAMINATION (03/21/2023 4:40 PM CDT) [...] conductive hearing in the left ear. Speech Business Project Analyst Thresholds is in good agreement with pure [...] with their facility, ENT or PCP PRN. Ismeal Castro, Ph.D., SKYLER., [facility]-A Land Surveyor Assistant Director, Division of Audiology Department of Otolaryngology- Head & Neck Surgery [facility] [employer] [facility] Ismael Castro PhD AUDIOLOGY SERVICES O RDERABLES * AK EAR MICROSCOPY EXAMINATION (03/19/2022 3:34 PM CDT) Froilan Ferrer MD - 03/19/2022 3:34 PM CDT Froilan Monae MD 03/19/2022 3:35 PM Procedure: Microscopic exam of the ear(s) Findings: See main note. Procedure in detail: The binocular operating microscope and and ear speculum were used to exam the ear(s). The patient tolerated the procedure well and there was no bleeding. Froialn Monae MD Froilan Monae MD PROCEDURE/MINOR JAJA [...] hearing loss in the left ear. Speech Business Project Analyst Thresholds is in good agreement with pure [...] Retest post treatment. Ismael Castro, Ph.D., SKYLER., [facility]-A Land Surveyor Assistant Director, Division of Audiology Department of Otolaryngology- Head & Neck Surgery [facility] Ismael Castro PhD AUDIOLOGY SERVICES O RDERABLES * CYCLIC CITRUL PEPTIDE ANTIBODY IGG/IGA (CCP) (08/02/2021 10:18 AM MANAGER WELLNESS) CCP Antibodies IgG/IgA 2 0 - 19 units 08/03/2021 11:07 PM MANAGER WELLNESS [facility] ([facility]) Comment: Negative <20 Weak positive 20 - 39 Moderate positive 40 - 59 Strong positive >59 Blood BLOOD SPECIMEN / Unknown Lab Venipuncture / Unknown 08/02/2021 10:18 AM MANAGER WELLNESS 08/02/2021 11:25 AM MANAGER WELLNESS Narrative [facility] ([facility]) - 08/03/2021 11:07 PM MANAGER WELLNESS Performed at: [facility] [id number] Corporate Legal Manager: Gaviota Krishnamurthy MD, Phone: [phone] sEtee Peck MD LAB - SEROLOGY ORDER SUDEEP [facility] ([facility]) [address] [place] [address] * RHEUMATOID FACTOR BLOOD QUANTITATIVE (08/02/2021 10:18 AM MANAGER WELLNESS) [facility] Rheumatoid Factor <15 <30 IU/mL 08/02/2021 11:57 AM MANAGER WELLNESS [facility] Rheumatoid Factor Screen Negative Negative 08/02/2021 11:57 AM MANAGER WELLNESS [facility] Blood BLOOD SPECIMEN / Unknown Lab Venipuncture / Unknown 08/02/2021 10:18 AM MANAGER WELLNESS 08/02/2021 11:25 AM MANAGER WELLNESS Estee Peck MD LAB - CHEMISTRY ORDE RABLES Performing Organization Address City/[facility]/ZIP Co de Phone Number [facility] [address] [address], [facility] [phone] * GONZALES BLOOD SCREEN W/REFLEX TITER (08/02/2021 10:18 AM MANAGER WELLNESS) [facility] GONZALES IgG None Detected None Detected 08/04/2021 8:04 AM MANAGER WELLNESS [employer] ([facility]) Comment: If suspicion of connective tissue disease is strong and GONZALES EIA is negative, consider testing for GONZALES by IFA ([id number]). INTERPRETIVE INFORMATION: Anti-Nuclear Antibodies (GNOZALES), IgG by DEDE Antinuclear Antibodies (GONZALES), IgG by DEDE: GONZALES specimens are screened using enzyme-linked immunosorbent assay (DEDE) methodology. All DEDE results reported as Detected are further tested by indirect fluorescent assay (IFA) using HEp-2 substrate with an IgG-specific conjugate. The GONZALES DEDE screen is designed to detect antibodies against dsDNA, histones, SS-A (Ro), SS-B (La), Jon, Jon/CAMP BOSS, Scl-70, Azeb-1, centromeric proteins, other antigens extracted from the HEp-2 cell nucleus. GONZALES DEDE assays have been reported to have lower sensitivities than GONZALES IFA for systemic autoimmune rheumatic diseases (SARD). Negative results do not necessarily rule out SARD. Performed By: [employer] [address] [place] [address] Cell Room Operator: Kiarra Fowler MD Blood BLOOD SPECIMEN / Unknown Lab Venipuncture / Unknown 08/02/2021 10:18 AM MANAGER WELLNESS 08/02/2021 11:25 AM MANAGER WELLNESS Estee Peck MD LAB - CHEMISTRY ALEENA HERNANDEZ Performing Organization Address [facility] Co de Phone Number [facility] ([facility]) [address] [place] [address] * HLA TYPING B27 (08/02/2021 10:18 AM MANAGER WELLNESS) HLA-B27 Negative Negative 08/04/2021 5:25 PM MANAGER WELLNESS [facility] [email or web address] ([facility]) Comment: INTERPRETIVE INFORMATION: HLA-B27 HLA-B27 is a serologically defined allele of the human HLA-B locus. The presence of the HLA-B27 antigen is strongly associated with ankylosing spondylitis and related disorders. This test was developed and its performance characteristics determined by [employer]. It has not been cleared or approved by the US Food and Drug Administration. This test was performed in a CLIA certified laboratory and is intended for clinical purposes. Performed by [employer], [address] [place] [address] [email or web address], Kiarra Fowler MD, Lab. Director Blood BLOOD SPECIMEN / Unknown Lab Venipuncture / Unknown 08/02/2021 10:18 AM MANAGER WELLNESS 08/02/2021 11:25 AM MANAGER WELLNESS Estee Peck MD LAB - CHEMISTRY ALEENA HERNANDEZ Performing Organization Address [facility] Co de Phone Number [facility]) [address] [place] [address] * XR KNEE RIGHT 3VW (08/02/2021 10:00 AM MANAGER WELLNESS) Anatomical Region Laterality Modality Lower Extremity Radiographic Yoly ging 08/02/2021 10:1 2 AM MANAGER WELLNESS Impressions 08/02/2021 10:42 AM MANAGER WELLNESS IMPRESSION: No evidence of bony erosions or significant degenerative changes. Dictated by Paulo Barragan D.O. ([employer] Neck Whipper) Dr. EDISON Pascual MD have personally reviewed and interpreted this examination/study. This report was electronically signed by EDISON FELIX MD on 08/02/2021 10:42 AM . Narrative 08/02/2021 10:42 AM MANAGER WELLNESS EXAMINATION: XR KNEE RIGHT 3VW, XR FOOT [...] degenerative changes. Dictated by Paulo Barragan D.O. ([employer] [place] Neck Whipper) Dr. EDISON Pascual MD have personally reviewed and interpreted this examination/study. This report was electronically signed by EDISON FELIX MD on08/02/2021 10:42 AM . Estee Peck MD DIAGNOSTIC IMAGING O RDERABLES * XR KNEE LEFT 3VW (08/02/2021 10:00 AM MANAGER WELLNESS) Anatomical Region Laterality Modality Lower Extremity Radiographic Yoly ging 08/02/2021 10:0 8 AM MANAGER WELLNESS Impressions 08/02/2021 10:43 AM MANAGER WELLNESS IMPRESSION: No evidence of bony erosions or significant degenerative changes. Dictated by Paulo Barragan D.O. ([employer] Neck Whipper) Dr. EDISON Pascual MD have personally reviewed and interpreted this examination/study. This report was electronically signed by EDISON FELIX MD on 08/02/2021 10:43 AM . Narrative 08/02/2021 10:43 AM MANAGER WELLNESS EXAMINATION: XR KNEE LEFT 3VW, XR FOOT [...] degenerative changes. Dictated by Paulo Barragan D.O. ([employer] Neck Whipper) Dr. EDISON Pascual MD have personally reviewed and interpreted this examination/study. This report was electronically signed by EDISON FELIX MD on08/02/2021 10:43 AM . Estee Peck MD DIAGNOSTIC IMAGING O RDERABLES * XR WRIST RIGHT 3VW OR MORE (08/02/2021 10:00 AM MANAGER WELLNESS) Anatomical Region Laterality Modality Wrist / Hand Radiographic Yoly ging 08/02/2021 10:0 2 AM MANAGER WELLNESS Impressions 08/02/2021 10:40 AM MANAGER WELLNESS IMPRESSION: No evidence of bony erosions or degenerative changes. Dictated by Paulo Barragan D.O. ([employer] Ne[employer] Whipper) IDr. EDISON MD have personally reviewed and interpreted this examination/study. This report was electronically signed by EDISON FELIX MD on 08/02/2021 10:40 AM . Narrative 08/02/2021 10:40 AM MANAGER WELLNESS EXAMINATION: XR SHOULDER RIGHT 2VW OR MORE, [...] degenerative changes. Dictated by Paulo Barragan D.O. ([employer] Neck Whipper) Dr. EDISON Pascual MD have personally reviewed and interpreted this examination/study. This report was electronically signed by EDISON FELIX MD on08/02/2021 10:40 AM . Estee Peck MD DIAGNOSTIC IMAGING O RDERABLES * XR WRIST LEFT 3VW OR MORE (08/02/2021 10:00 AM MANAGER WELLNESS) Anatomical Region Laterality Modality Wrist / Hand Radiographic Yoly ging 08/02/2021 10:0 5 AM MANAGER WELLNESS Impressions 08/02/2021 10:41 AM MANAGER WELLNESS IMPRESSION: No evidence of bony erosions or degenerative changes. Dictated by Paulo Barragan D.O. ([employer] Neck Whipper) Dr. EDISON Pascual MD have personally reviewed and interpreted this examination/study. This report was electronically signed by EDISON FELIX MD on 08/02/2021 10:41 AM . Narrative 08/02/2021 10:41 AM MANAGER WELLNESS EXAMINATION: XR SHOULDER LEFT 2VW OR MORE, [...] degenerative changes. Dictated by Paulo Barragan D.O. ([employer] Neck Whipper) Dr. EDISON Pascual MD have personally reviewed and interpreted this examination/study. This report was electronically signed by EDISON FELIX MD on08/02/2021 10:41 AM . Estee Peck MD DIAGNOSTIC IMAGING O RDERABLES * XR SHOULDER RIGHT 2VW OR MORE (08/02/2021 10:00 AM MANAGER WELLNESS) Anatomical Region Laterality Modality Upper Extremity Radiographic Yoly ging 08/02/2021 10:0 2 AM MANAGER WELLNESS Impressions 08/02/2021 10:40 AM MANAGER WELLNESS IMPRESSION: No evidence of bony erosions or degenerative changes. Dictated by Paulo Barragan D.O. ([employer] Neck Whipper) Dr. EDISON Pascual MD have personally reviewed and interpreted this examination/study. This report was electronically signed by EDISON FELIX MD on 08/02/2021 10:40 AM . Narrative 08/02/2021 10:40 AM MANAGER WELLNESS EXAMINATION: XR SHOULDER RIGHT 2VW OR MORE, [...] degenerative changes. Dictated by Paulo Barragan D.O. ([employer] Neck Whipper) Dr. EDISON Pascual MD have personally reviewed and interpreted this examination/study. This report was electronically signed by EDISON FELIX MD on08/02/2021 10:40 AM . Estee Peck MD DIAGNOSTIC IMAGING O RDERABLES * XR SHOULDER LEFT 2VW OR MORE (08/02/2021 10:00 AM MANAGER WELLNESS) Anatomical Region Laterality Modality Upper Extremity Radiographic Yoly ging 08/02/2021 10:0 5 AM MANAGER WELLNESS Impressions 08/02/2021 10:41 AM MANAGER WELLNESS IMPRESSION: No evidence of bony erosions or degenerative changes. Dictated by Paulo Barragan D.O. ([employer] Neck Whipper) Dr. EDISON Pascual MD have personally reviewed and interpreted this examination/study. This report was electronically signed by EDISON FELIX MD on 08/02/2021 10:41 AM . Narrative 08/02/2021 10:41 AM MANAGER WELLNESS EXAMINATION: XR SHOULDER LEFT 2VW OR MORE, [...] degenerative changes. Dictated by Paulo Barragan D.O. ([employer] Neck Whipper) IDr. EDISON MD have personally reviewed and interpreted this examination/study. This report was electronically signed by EDISON FELIX MD on08/02/2021 10:41 AM . Estee Peck MD DIAGNOSTIC IMAGING O RDERABLES * XR CHEST 2VW (08/02/2021 10:00 AM MANAGER WELLNESS) Anatomical Region Laterality Modality Chest Radiographic Yoly ging 08/02/2021 10:0 3 AM MANAGER WELLNESS Impressions 08/02/2021 5:18 PM MANAGER WELLNESS FINDINGS/IMPRESSION: There is asymmetric elevation of the right hemidiaphragm. There is no focal consolidation, pleural effusion, or pneumothorax. The cardiomediastinal silhouette is normal. The visible bony thorax is intact. Report drafted by Efrain Barnes M.D. (resident) Dr. MYRA Pascual have personally reviewed and interpreted this examination/study. This report was electronically signed by MYRA MURILLO on 08/02/2021 5:18 PM . Narrative 08/02/2021 5:18 PM MANAGER WELLNESS EXAMINATION: XR CHEST 2VW HISTORY: L40.9: Psoriasis [...] HCV RNA QN PCR (07/05/2021 11:11 AM MANAGER WELLNESS) Hepatitis C Antibody NON-REACTI VE NON-REACT [facility] Signal to Cut-Off 0.01 <1.00 [facility] Comment: HCV antibody was non-reactive. There is no laboratory evidence of HCV infection. In most cases, no further action is required. However, if recent HCV exposure is suspected, a test for HCV RNA (test code 08023) is suggested. For additional information please refer to http://education.Quintura/faq/MUB28q4 (This link is being provided for informational/ educational purposes only.) REPORT COMMENT: FASTING:NO Test Performed at: [facility] [address] [place] [address] SIRIA AGUILAR DO,MPH Blood BLOOD SPECIMEN / Unknown 07/05/2021 11:11 AM MANAGER WELLNESS 07/05/2021 11:12 AM MANAGER WELLNESS Estee Peck MD LAB - CHEMISTRY ALEENA HERNANDEZ Performing Organization Address [facility] Co de Phone Number [facility] [phone] [place] [address] * HEPATITIS B SURFACE ANTIBODY (07/05/2021 11:11 AM MANAGER WELLNESS) Hepatitis B Virus Surface Antibody NON-REACTI VE NON-REACT [facility] Comment: Test Performed at: [facility] [place] [address] [address] SIRIA AGUILAR DO,MPH Blood BLOOD SPECIMEN / Unknown 07/05/2021 11:11 AM MANAGER WELLNESS 07/05/2021 11:12 AM MANAGER WELLNESS Estee Peck MD LAB - CHEMISTRY ALEENA HERNANDEZ Performing Organization Address [facility] Co de Phone Number [facility] [phone] [place] [address] * HEPATITIS B CORE ANTIBODY (07/05/2021 11:11 AM MANAGER WELLNESS) Hepatitis B Core Virus Antibody Total NON-REACTI VE NON-REACT [facility] Comment: Test Performed at: [facility] [place] [address] [address] SIRIA AGUILAR DO,MPH Blood BLOOD SPECIMEN / Unknown 07/05/2021 11:11 AM MANAGER WELLNESS 07/05/2021 11:12 AM MANAGER WELLNESS Estee Peck MD LAB - CHEMISTRY ALEENA HERNANDEZ Performing Organization Address [facility] Co de Phone Number [facility] [phone] [place] [address] * HEPATITIS B SURFACE ANTIGEN W RFLX CONFIRMATION (07/05/2021 11:11 AM MANAGER WELLNESS) Hepatitis B Virus Surface Antigen NON-REACTI VE NON-REACT [facility] Comment: Test Performed at: [facility] [place] [address] [address] [employer] [address] SIRIA AGUILAR DO,MPH Blood BLOOD SPECIMEN / Unknown 07/05/2021 11:11 AM MANAGER WELLNESS 07/05/2021 11:12 AM MANAGER WELLNESS Estee Peck MD LAB - CHEMISTRY ALEENA HERNANDEZ [facility] [address] [place] [address] * VITAMIN D 25-HYDROXY (04/03/2021 12:40 PM CDT) Vitamin D, 25 Hydroxy 52.0 30.0 - 80.0 ng/mL 04/03/2021 2:31 PM CDT [facility] Comment: The recommendations for 25-Hydroxy Vitamin [...] - CHEMISTRY Deni DIAZ Performing Organization Address [facility] Co de Phone Number [facility] [address] [place] [address], [facility] [phone] * ED INCISION AND DRAINAGE (06/18/2011 12:25 PM MANAGER WELLNESS) Narrative Sandra Benson DO - 06/18/2011 12:25 PM MANAGER WELLNESS Sandra Benson DO 06/18/2011 12:25 PM Provider contact with the patient: 06/18/2011 11:59 AM Danis Horner [id number] [facility] History Chief Complaint Patient [...] the patient: 06/18/2011 11:59 AM Danis Horner [id number] [facility] History Chief Complaint Patient [...] ORDERABLES * CULTURE ABSCESS (06/18/2011 12:00 PM MANAGER WELLNESS) Result [facility] Comment: Final GRAM STAIN [...] ENTIRE THUMB / Unknown 06/18/2011 12:00 PM MANAGER WELLNESS 06/18/2011 1:32 PM MANAGER WELLNESS Narrative Resulting Agency Comment Performed By [facility];[address] [place] [address];[place] [address] Azam Strong MD LAB - MICROBIOLOGY O RDERABLES [facility] [address] [place] [address] Care Teams Landscaper Relationship Specialty Start Date End Date Richard Chacon III, MD [address] [place] [phone] PCP - General Internal Medicine 01/29/22 Richard Chacon III, MD [address] [facility] [address] [place] [phone] PCP - Attributed-[facility] NIYAH SALCIDO P4P 11/23/23 Christa Velez APRN-[employer] SUPERVISOR [address] [place] [place] [address] [place] [phone] Psychiatrist Nurse Practitioner 08/07/21 Morgan Randhawa MD [address] [facility] [address] [place] [place] [phone] Resident - PCP Internal Medicine 01/29/22 Pineda Randhawa MD [address] [facility] [address] [place] [phone] Resident Rheumatology 12/24/22 Will Naqvi MD [address] [facility] [address] [place] [phone] Compounding And Finishing Supervisor Rheumatology 12/24/22 Pineda Randhawa MD [address] [facility] [address] [place] [address] Resident Rheumatology 02/04/23 Estee Peck MD [address] [facility] [address] [place] [address] Dermatology 02/04/23
--- OUTSIDE RECORDS SUMMARY | 2024-08-06 09:29 | XMS_ITS ---
Author Organization [facility] Address [address] [place] [address] Care Team Providers Care Clinical Science Liaison Name Role Phone Maldonado ARAUZ MD Primary Care Provider Christa Laura Unavailable [phone] Allergies No Known Allergies REASON FOR VISIT [...] MG/2 PENS (150 MG/ML) SUBCUTANEOUS *Reorder from [employer] for eRx and Interaction Alerts* 09/02/2023 Active [...] MCG X4)/0.5 ML IM SYRINGE *Reorder from [employer] for eRx and Interaction Alerts* 09/02/2023 Active [...] 05/26/2024 Encounters Encounter Location Date Provider Diagnosis [facility] [address] [place] [address] 05/26/2024 Christa Rankin Bipolar disorder, current episode [...] Provider Name:Christa Rankin , 09/22/2024 09:15:00 AM, [address] [place] [address] [address], [place], [address], Progress Notes * CESAR SPEAROB: 7 (28 yo M)Acc No.[id number]:05/26/2024 Patient: Jd DOTTYTRISH TABOROLAS Provider: TIFFANY KELLY :1995 A ge:28 Y S ex:Male Date:05/26/2024 Phone: Address:[address] [place], [place] [phone] Pcp:Maldonado ARAUZ MD Subjective: * Chief Complaints: * 1 . Doing ok. 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 [place]-Suicide Severity Rating Scale: Suicide Risk (CSRS-screener) i [...] your life? N o. D epression Screening: ENLA-7 (2018 Edition) F eeling nervous, anxious, or [...] standardized tool used for adult depression screening: Jyothi rock Health Questionnaire (PHQ-9).? * ROS: Jyothi rock reports w eight loss none b [...] reports d ry skin; p soriasis see business development analyst /RA provider skin d/o improving with rx. He reports f requent or severe headaches and migraines on RX n o loss of consciousness, no weakness, no numbness, no seizures, no dizziness, no tremor, no gait dysfunction, and no paralysis;?see neurologist. He reports mild depression, sleep disturbances (hx hyposomnia), mild anxiety, and no memory loss b ut reports no alcohol abuse, no hallucinations, no suicidal thoughts, no mood swings, and no agitation. He reports fatigue. H e reports no chest pain, no shortness of breath when walking, no shortness of breath when lying down, and no palpitations. He reports no cough and no shortness of breath. He reports no incontinence and no difficulty urinating. * Medical History: P ernstlems: Autistic disorder, Bipolar affective disorder, current episode depression, Generalized anxiety disorder, Insomnia disorder related to another mental disorder, Long-term drug therapy, Overweight, Vitamin D deficiency, Weight gain, ,. * Surgical History: t ubes ears childhood . * Hospitalization/Major Diagno stic Procedure: g ateway - depression and suicidal thoughts 02/14 . * Medications: T aking Cholecalciferol 25 MCG (1000 UT) Capsule Oral , Taking Melatonin 3 MG Tablet Oral , Taking AFLURIA QD 2019- (36 MOS UP)(PF)60 MCG (15 MCG X4)/0.5 ML IM SYRINGE , Notes to Pharmacist: *Reorder from App[employer]r for eRx and Interaction Alerts*, Taking Ketoconazole 2% Shampoo External , Taking Calcipotriene 0.005 % Cream External , Taking Naproxen 500 MG Tablet Oral , Taking Clobetasol Propionate 0.05 % Ointment External , Taking Folic Acid 1 MG Tablet Oral , Taking Hydrocortisone 2.50% Cream External , Taking COSENTYX PEN 300 MG/2 PENS (150 MG/ML) SUBCUTANEOUS , Notes to Pharmacist: *Reorder from [employer] for eRx and Interaction Alerts*, Taking buPROPion [...] Allergies: N .K.D.A. Objective: * Vitals: B P:129/84mm Hg, HR:80/min, RR:17/min, Ht: 67.00 in, Ht-cm: 170.18 cm. * Examination: P sychiatry: Appearance: w ell-groomed, [...] 90 Capsule, Refills 0. * Procedure Codes: G 2211 VISIT COMPLEXITY INHERENT TO ONGOING CARE RELATED TO A PATIENT'S SINGLE, SERIOUS CONDITION OR A COMPLEX CONDITION, 39307 PSYCL/NRPSYC TST AUTO RESULT * Follow Up: 3 Months (Reason: F/U RX) * Billing Information: * Visit Code: [id number] OFFICE OUTPATIENT VISIT 25 MINUTES DETAILED HISTORY AND EXAM/MODERATE MEDICAL DECISION MAKING. * Procedure Codes: G2211 VISIT COMPLEXITY INHERENT TO ONGOING CARE RELATED TO A PATIENT'S SINGLE, SERIOUS CONDITION OR A COMPLEX CONDITION. 10628 PSYCL/NRPSYC TST AUTO RESULT. 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
[2024-08-31 19:17] VITALS: BMI 40.7
--- NOTE | 2024-08-31 19:17 | WPDSLEEPSTUD ---
Sleep Study Date of Study: 08/06/24 Ordering Provider: Riley Hutson APRN Interpreting Physician: Safia Degroot DO Sleep Study Type: CPAP Titration Height: 1.7 m Weight: 117.934 kg Body Mass Index: 40.7 Neck Circumference (inches): 19 [place]: 11 Reason for Sleep Study Daytime hypersomnia Sleep History The patient is a 28-year-old male that had a sleep study ordered by the pulmonary group for evaluation of sleep apnea. The patient frequently awakens from sleep short of breath. He denies awakening at night with heartburn, belching or cough. He frequently snores and it is frequently loud enough that others complain. He constantly has trouble sleeping when he has a cold. He frequently wakes up gasping for air throughout the night. He frequently has breathing problems at night observed by himself or others. He occasionally sweats excessively at night. He occasionally has heart palpitations or irregular heartbeats during the night. He constantly falls asleep during the day but never while driving. He denies having trouble at school or work due to sleepiness. He occasionally feels unable to move while waking up or falling asleep. He occasionally experiences vivid dreamlike scenes upon awakening or falling asleep. He denies feeling afraid of going to sleep. He frequently has nightmares. He denies remembering his dreams. He frequently has thoughts racing through his mind. He occasionally feels sad, depressed and anxious. He frequently has muscular tension. He frequently notices parts of his body jerk. He occasionally kicks during the night. He frequently has crawling and aching feelings in his legs and frequently has leg pain during the night. He denies awakening in the morning with jaw pain. He is constantly bothered by pain during the day and frequently awakened by pain during the night. He constantly wakes up feeling stiff in the morning. He constantly wakes up with sore or achy muscles. He constantly wakes up with pain in the neck, spine and other joints. He goes to bed between 2:24 a.m. on both weekdays and weekends. It takes him up to 10 minutes to fall asleep. He wakes up 1-2 times throughout the night for unknown reasons but will watch television is well he is able to fall back asleep which can take 2-4 hours. He wakes up at 8:20 a.m. on both weekdays and weekends. He typically gets 5-6 hours of sleep per night. He will stay in bed for a few minutes after waking up in the morning. He currently lives with his parents. He will consume caffeinated beverages within 2 hours of bedtime. He will engage in physical exercise before bedtime. He denies reading before falling asleep. He will watch television before falling asleep. He will take naps in afternoon or the evening but they are not refreshing. He consumes 2-3 cups of caffeinated beverage per day. He denies tobacco, alcohol and recreational drug use. [facility] Past Medical History Medical History Daytime sleepiness Obesity Social History Social History Social History: caffeine 2 cups of tea daily Smoking status: Never smoker Alcohol intake: former Alcohol use details: has not drank in over 2 years Substance use: never Substance use type: does not use Lack of Transportation: No Lack of Food: Never True Current Housing: I Have Housing Concerned About Future Housing: No Difficulty Paying Gas/Electric Bills: No Difficulty Paying for Meds: No Currently Unemployed: YES Education: High School Diploma/GED Difficulty w/ Childcare or Family Care: No Living arrangements: with family Medications Home Medications ?Medication ?Instructions ?Recorded ?Confirmed ?Type bupropion HCl 200 mg tablet,12 hr 200 mg PO DAILY 12/26/21 03/30/24 History sustained-release citalopram 40 mg tablet 40 mg PO DAILY 12/26/21 03/30/24 History folic acid 1 mg tablet 1 mg PO DAILY 12/26/21 03/30/24 History naproxen 500 mg tablet 500 mg PO DIRECTED 12/26/21 03/30/24 History olanzapine 10 mg tablet 10 mg PO DAILY 12/26/21 03/30/24 History secukinumab 150 mg/mL subcutaneous 150 mg subcut DIRECTED 12/26/21 03/30/24 History syringe (Cosentyx 300 mg/2 Syringes () sumatriptan succinate 100 mg tablet See Rx Instructions PO .COMPLEX 02/17/24 03/30/24 Rx #14 tabs topiramate 100 mg tablet 100 mg PO DAILY #60 tabs 02/17/24 03/30/24 Rx venlafaxine 37.5 mg 37.5 mg PO DAILY 03/30/24 03/30/24 History capsule,extended release 24 hr eszopiclone 3 mg tablet 3 mg PO ONCE #1 tablet 07/15/24 Rx Sleep Procedure A full night CPAP Titration using the [employer] multi-channel system recorded the standard physiologic parameters including EEG, EOG, submentalis EMG, anterior tibialis EMG, EKG, body position, nasal and oral airflow using nasal pressure sensor and thermistor.? Respiratory parameters of chest and abdominal movements were recorded with Respiratory Inductance Plethysmography belts. Oxygen saturation was recorded by pulse oximetry. Video monitoring was also performed. Sleep stages, periodic limb movements, and EEG arousals were scored in 30 second epochs according to the criteria of the AASM Scoring Manual. The Apnea-Hypopnea Index was calculated using [facility] guidelines for definition of hypopnea with 4% O2 desaturations while scoring respiratory events. Sleep Architecture The total recording time was 526.3 minutes.? The total sleep time was 395.5 minutes. Sleep latency was 2.1 minutes. REM latency was 59.0 minutes. Sleep efficiency was 75.1%. The patient had 15 awakenings for an awakening index of 2.3. Wake after Sleep Onset time was 128.5 minutes. The patient spent 9.0 minutes, 2.3% of total sleep time in Stage N1. The patient spent 177.0 minutes, 44.8% in Stage N2. The patient spent 87.0 minutes, 22.0% in Stage N3. The patient spent 122.5 minutes, 31.0% in Stage REM. Respiratory Analysis The patient had 13 hypopneas, 3 mixed apneas, and 4 central apneas for an overall Apnea Hypopnea Index of 3.0 events per hour. The REM Apnea Hypopnea Index was 5.4. The NREM Apnea Hypopnea Index was 2.0. The patient had a Central Apnea Hypopnea Index of 0.6. There was no evidence of Phi-Sanchez Respirations. The patient was started on CPAP 5 cm H2O and titrated to CPAP 12 cm H2O due to central apneas and hypopneas. The patient was able to fall asleep starting on CPAP 5 cm H2O. The patient was able to achieve REM sleep starting on CPAP 5 cm H2O. The patient had a residual AHI less than 5 with both NREM and REM sleep on 9 and 10 cm H2O. On CPAP 9 cm H2O, the patient spent 115.5 minutes in NREM and 40 minutes in REM with 2 central apneas and 2 hypopneas, resulting in an AHI of 1.5. On CPAP 10 cm H2O, the patient spent 95.5 minutes in NREM and 56.5 minutes in REM with 2 mixed apneas and 1 hypopnea, resulting in an AHI of 2.8. The patient had a sleep efficiency of 98.7% on 9 cm H2O and 98.4% on 10 cm H2O. Arousals There were 45 total arousals for an arousal index of 6.8. There were 23 spontaneous arousals for an index of 3.5. ?There were 7 arousals due to respiratory events for an index of 1.1. There were 0 arousals due to periodic limb movements for an index of 0.? There were 14 arousals due to isolated limb movements for an index of 2.1. Periodic Limb Movements The patient had 25 isolated limb movements with an index of 3.8. The patient had 0 periodic limb movements with index of 0. Patient had a total of 25 limb movements with a total limb movement index of 3.8. Oximetry Data The patient had an average oxygen saturation of 96.6% in sleep with a minimum oxygen saturation of 91.0% and a maximum oxygen saturation of 98.0%. The patient had 16 oxygen desaturations that were 4% or greater resulting in an Oxygen Desaturation Index of 2.4.? The patient spent 0 minutes of total sleep time with an oxygen saturation below 88%. Snoring Profile Mild to moderate snoring was present in the beginning of the study. The snoring resolved once the patient was titrated to 8 cm H2O. Cardiac Profile The EKG showed normal sinus rhythm. No arrhythmias or PVCs were seen. The patient had an average pulse rate of 82.8 bpm with a minimum pulse rate of 70.0 bpm and a maximum pulse rate of 114.0 bpm. ? EEG Profile No signs of seizure activity seen. Assessment and Plan Assessment and Plan (1) KIEL (obstructive sleep apnea): Code(s): G47.33 - Obstructive sleep apnea (adult) (pediatric) Status: Acute Assessment and Plan: The patient was started on CPAP 5 cm H2O and titrated to CPAP 12 cm H2O due to central apneas and hypopneas. The patient's sleep apnea resolved on two pressure settings. I recommend that the patient be prescribed Resmed CPAP 9 cm H2O, size medium Resmed Mirage Quattro full face mask, CPAP filters/tubing and heated humidity. This should be used with all episodes of sleep.? Compliance should be reviewed within 31-90 days of starting therapy for usage greater than 4 hours per night greater than 70% of the nights. The patient should be asked about symptoms such as?excessive daytime sleepiness, quality of sleep, decreased nocturia, increased?mental functioning such as memory, mood, and concentration. Data The data obtained during this sleep study is adequate for interpretation. Certification This sleep study has been reviewed by a board certified sleep medicine physician.
== END 2024-08-07 06:55 | disposition home or self-care (01) ==
PROVIDERS: Visit Provider Nurse Practitioner Family
DX: G47.33 Obstructive sleep apnea (adult) (pediatric) (principal); G47.31 Primary central sleep apnea
CPT/HCPCS: 95811